=== PATIENT | male | born 1955 | race Caucasian/White ===

== ENCOUNTER → 2016-04-13 | Outpatient (CLI) | payer OTHER ==
[~2016-04-13] MED LIST: APR25 PO; ASPI81TA28 PO; BENA1TAB19 PO; CARV25TA2 PO; CHOL20005 PO; DEXT1LOZ PO; FRS/40 PO; GFNSR600 PO; GLCSR10 PO; ISOS60TA25 PO; ROSU40TA PO; SPIR25TA PO
--- NOTE | 2016-04-13 10:02 | DIAGNOSTIC IMAGING REPORT ---
TWO VIEW CHEST CLINICAL HISTORY: Cough. FINDINGS: PA and lateral chest radiographs are obtained. No prior studies are available for comparison at the time of dictation. The heart appears mildly enlarged. The pulmonary vasculature is noncongested. There is a questionable 11 mm nodular density in the right upper lobe. The lungs and pleural spaces are otherwise clear. There is no pneumothorax. The bony thorax appears intact. Fusion hardware is seen in the lower cervical spine. IMPRESSION: 1. No active disease in the chest. 2. There is a questionable 11 mm nodular density in the right upper lobe. This may represent a prominent vessel seen en face. A repeat examination with oblique views is recommended for reassessment. Electronically signed by: Jose Dumont M.D. 04/13/2016 10:00 AM Dictated Date/Time: 04/13/2016 9:57 AM
[2016-04-13 10:26] LABS: ESTIMATED AVERAGE GLUCOSE 114 mg/dl; HA1C FLAG Normal (Normal)
[2016-04-13 10:52] LABS: ALT/SGPT 15 U/L (12-78); AST/SGOT 10 U/L (15-37); BLOOD UREA NITROGEN 34 mg/dl (7-18); BUN/CREATININE RATIO 17.9 (10-20); CARBON DIOXIDE 29 mmol/L (21-32); CHLORIDE 104 mmol/L (98-107); GLUCOSE 187 mg/dl (70-99); POTASSIUM 4.5 mmol/L (3.5-5.1); SODIUM 140 mmol/L (136-145)
[2016-04-13 11:03] LABS: ALKALINE PHOSPHATASE 90 U/L (45-117)
[2016-04-13 11:32] LABS: URINE APPEARANCE CLEAR (CLEAR); URINE BILIRUBIN NEG (NEG); URINE COLOR YELLOW; URINE EPITHELIAL CELL AUTO 0-5 /lpf (0-5); URINE NITRITE NEG (NEG); URINE SPECIFIC GRAVITY 1.015 (1.000-1.030); UROBILINOGEN NEG (NEG); ZZUR CULT IF INDIC CLEAN CATCH NO
[2016-04-13 11:41] LABS: MANUAL MICROSCOPIC REQUIRED? NO; REVIEW REQ? NO
[2016-04-13 12:16] LABS: BASO % 0.4 %; BASO ABS # 0.02 K/uL (0-0.2); COMPLETE YES; EOS % 1.8 %; HEMATOCRIT 36.8 % (42-52); IG% 0.6 %; LYMPH % 18.3 %; LYMPH ABS # 0.92 K/uL (1.2-3.4); MEAN CELL VOLUME 79.5 fL (80-100); MEAN CORPUSCULAR HEMOGLOBIN 28.5 pg (25-34); MEAN CORPUSCULAR HGB CONC 35.9 g/dl (32-36); MEAN PLATELET VOLUME 10.2 fL (7.4-10.4); MONO % 13.3 %; NEUT % 65.6 %; PLATELET COUNT 139 K/uL (130-400); RED BLOOD COUNT 4.63 M/uL (4.7-6.1); WHITE BLOOD COUNT 5.04 K/uL (4.8-10.8)
== END | disposition home or self-care (01) ==
LOC: C.LAB 09:01
PROVIDERS: ATTEND Internal Medicine
DX: R05 Cough (principal); Z11.59 Encounter for screening for other viral diseases; E11.22 Type 2 diabetes mellitus with diabetic chronic kidney disease; N18.3 Chronic kidney disease, stage 3 (moderate); E66.9 Obesity, unspecified; E78.00 Pure hypercholesterolemia, unspecified; I50.9 Heart failure, unspecified

== ENCOUNTER → 2016-04-14 | Outpatient (CLI) | payer OTHER ==
[2016-04-14 12:49] LABS: CHOLESTEROL/HDL RATIO 3.4
== END | disposition home or self-care (01) ==
LOC: C.LABBFT 10:44
PROVIDERS: ATTEND Internal Medicine
DX: E78.00 Pure hypercholesterolemia, unspecified (principal)

== ENCOUNTER → 2016-04-25 | Outpatient (CLI) | payer OTHER ==
[~2016-04-25] MED LIST changes: +OPTIRAY 320 IV PRN
--- NOTE | 2016-04-25 12:17 | DIAGNOSTIC IMAGING REPORT ---
CT OF THE CHEST WITH IV CONTRAST CLINICAL HISTORY: Pulmonary nodule. COMPARISON STUDY: Chest x-ray dated 04/13/2016 TECHNIQUE: Following the IV administration of 70 mL of Optiray-320, CT of the thorax was performed from the thoracic inlet to the lung bases. Images are reviewed in the axial, sagittal, and coronal planes. IV contrast was administered without complication. CT DOSE: 917.33 mGy.cm FINDINGS: Thyroid: Imaged portions of the thyroid gland are normal in appearance. Thoracic aorta: The thoracic aorta is normal in course and caliber, noting standard 3-vessel arch anatomy. No aneurysm or dissection is seen. Pulmonary vasculature: The pulmonary trunk is normal in caliber. There are no central filling defects identified to suggest pulmonary embolus. Note that this examination was not protocoled for the evaluation of pulmonary emboli. HEART: There are coronary artery calcifications present. Lungs and pleural spaces: There are no pleural effusions. There is no focal pulmonary consolidation. There is an opacity at the right medial lung base, likely atelectatic. CT scanning fails to confirm the presence of a right upper lobe pulmonary mass. Mediastinum: There is no mediastinal lymphadenopathy. Susan: Clear. Axilla: Clear. Upper abdomen: There is moderate splenomegaly. Skeletal structures: There are no lytic or blastic osseous lesions. IMPRESSION: 1. CT scanning fails to confirm the presence of a right upper lobe pulmonary nodule 2. No evidence of pathologic adenopathy 3. Pleural-based right lower lobe opacities, most likely atelectatic 4. Moderate splenomegaly Electronically signed by: Ezequiel Bolden M.D. 04/25/2016 12:15 PM Dictated Date/Time: 04/25/2016 12:10 PM
== END | disposition home or self-care (01) ==
LOC: C.CTS 11:44
PROVIDERS: ATTEND Internal Medicine
DX: Z77.090 Contact with and (suspected) exposure to asbestos (principal); R91.8 Other nonspecific abnormal finding of lung field; R16.1 Splenomegaly, not elsewhere classified

== ENCOUNTER → 2016-04-26 | Outpatient (CLI) | payer OTHER ==
[~2016-04-26] MED LIST changes: -OPTIRAY 320 IV PRN
--- NOTE | 2016-04-26 11:28 | DIAGNOSTIC IMAGING REPORT ---
RENAL ULTRASOUND HISTORY: Renal insufficiency N18.3 Chronic kidney disease, stage [id number] COMPARISON: None. FINDINGS: Right kidney: 11.2 cm maximum dimension. No evidence for hydronephrosis. Normal corticomedullary differentiation and cortical thickness. Left kidney: Maximum dimension 11.9 cm. No evidence for hydronephrosis. Normal corticomedullary differentiation and cortical thickness. Bladder: No bladder wall thickening. The bilateral ureteral jets were identified. IMPRESSION: Normal renal ultrasound. Electronically signed by: Nilesh Townsend M.D. 04/26/2016 11:27 AM Dictated Date/Time: 04/26/2016 11:25 AM
== END | disposition home or self-care (01) ==
LOC: C.ULTR 10:03
PROVIDERS: ATTEND Internal Medicine
DX: N18.3 Chronic kidney disease, stage 3 (moderate) (principal)

== ENCOUNTER → 2016-05-30 | Outpatient (CLI) | payer OTHER ==
--- NOTE | 2016-05-31 06:30 | SPLIT NIGHT TECHNICIAN REPORT ---
[facility] Split Night Polysomnogram - Hvac Maintenance Technician Report Study date: 05/30/2016 Referring Physician: Ori Espino Pulmonary Name: PRAMOD DELCID Hvac Maintenance Technician: ARELIS Monique. Date of : 1955 Height: 61 years, Height 5' 3" Sex: Male Weight: 230 lbs Age: 61 BMI: Medications: 40.74 Aspirin 81 mg, Benazepril 40 mg, Carvedilol 25 mg, Glipizide 10 mg, Hydralazine 25 mg, Isosorbide Mononitrate 60 mg, Lasix 40 mg, Lipior 40 mg, Vitamin D 3 Patient History 61 yr. old male here for a possible split night sleep study. Patient was diagnosed with MARISA in [place] 6-8 years ago, but stopped treatment when he lost his insurance. Patient complains of snoring, witnessed apneas, and restlessness. Patient has a history of asbestos exposure, CHF, edema, recent weight gain, HTN, diabetes, and kidney disease. Patients [place] sleepiness scale score is 4/24. Parameters Monitored NPSG: E1-M2, E2-M1, Fp1-M2, Fp2-M1, F3-M2, F4-M2, F4-M1, C3-M2, C4-M2, C4-M1, O1-M2, O2-M2, O2-M1, T3-M2, T4-M1, P3-M2, P4-M1, CHIN1, CHIN2, HR, EKG, Legs, PFLOW, SNOR, FLOW, CFLOW, Tidal Volume, THOR, ABDO, SpO2, PLTH, CPRESS, ETCO2 Wave, ETCO2, pH SLEEP SUMMARY DATA DIAGNOSTIC TREATMENT Lights Out: 10:52:50 PM NONE Lights On: 1:22:20 AM 5:30:50 AM Total Recording Time (TRT): 149.5 min. 243.0 min. Total Sleep Time (TST): 131.0 min. 224.5 min. NREM Time: 118.5 min. 160.5 min. REM Time: 12.5 min. 64.0 min. Sleep Period Time (SPT): 138.0 min. 240.5 min. Sleep Efficiency (SE): 88 % 93 % Sleep Latency: 8.5 min. NONE min. Arousal Index: 13.3 3.7 PAP Treatment Levels: 4, 5, 6, 8, 9, 10, 11, 12, 13, 14 * Optimal Pressure(s) SLEEP STAGING DATA DIAGNOSTIC TREATMENT Duration (min) TST % Duration (min) TST % Stage Wake: 18.5 min. -- 18.0 min. -- WASO: 10.0 min. -- 16.0 min. -- NREM: 118.5 min. 90 % 160.5 min. 71 % Stage N1: 16.5 min. 13 % 22.0 min. 10 % Stage N2: 77.5 min. 59 % 109.0 min. 49 % Stage N3: 24.5 min. 19 % 29.5 min. 13 % REM: 12.5 min. 10 % 64.0 min. 29 % POSITIONAL DATA Event Count Index Event Count Index Supine: 27 81.0 122 32.6 Supine NREM: 27 81.0 80 29.9 Supine REM: N/A N/A 42 39 Non-Supine: 55 29.7 N/A N/A Non-Supine NREM: 36 21.9 N/A N/A Non-Supine REM: 19 91.2 N/A N/A AROUSAL SUMMARY DATA: Event Count Index Event Count Index Apnea Arousals: 5 4.1 3 6.9 Hypopnea Arousals: 5 2.3 3 0.8 Snore Arousals: 10 4.6 2 0.5 PLM Arousals: 3 1.4 2 0.5 Non-Specific Arousals: 1 0.5 0 0.0 Total Arousals: 29 13.3 14 3.7 MYOCLONUS (PLM) Event Count Index Event Count Index PLM: 23 10.5 19 5.1 PLM AROUSAL: 3 1.4 2 0.5 PLM W/O AROUSAL 23 10.5 17 4.5 PLM W/RESP EVENT 1 0.0 2 0.0 MYOCLONUS (PLM) Event Count Index Event Count Index LM: 6 25.2 83 22.2 LM AROUSAL: 6 2.7 7 1.9 LM W/O AROUSAL LM W/RESP EVENT LM NON SPECIFIC 58 26.6 68 18.2 HEART RATE DATA DIAGNOSTIC TREATMENT Sleep (bpm): 67 64 REM (bpm): 90 94 NREM (bpm): 92 93 Tachycardia Count: 0 0 Tachycardia Duration: 0.00 0 Bradycardia Count: 0 0 Bradycardia Duration: 0.00 0 DIAGNOSTIC PORTION TREATMENT PORTION RESPIRATORY DATA Event Count Index Event Count Index AHI: -- 37.6 -- 32.6 RDI: -- 37.6 -- 33 Obstructive Apnea: 9 4.1 26 6.9 Central Apnea: 0 0.0 0 0.0 Mixed Apnea: 0 0.0 0 0.0 Hypopnea: 73 33.4 96 25.7 RERA: 0 0.0 0 0.0 Total Apneas: 9 4.1 26 6.9 RESPIRATORY DATA REM NREM SLEEP REM NREM SLEEP Supine Position: Obstructive Apneas: N/A 5 5 5 21 26 Central Apneas: N/A 0 0 0 0 0 Mixed Apneas: N/A 0 0 0 0 0 Hypopneas: N/A 22 22 37 59 96 RERA N/A 0 0 0 0 0 Total Supine Events: N/A 27 27 42 80 122 Supine AHI: N/A 81.0 81.0 39 29.9 32.6 Supine RDI: N/A 81.0 81.0 39.4 29.9 32.6 REM NREM SLEEP REM NREM SLEEP Non-Supine Position: Obstructive Apneas: 4 0 4 N/A N/A N/A Central Apneas: 0 0 0 N/A N/A N/A Mixed Apneas: 0 0 0 N/A N/A N/A Hypopneas: 15 36 51 N/A N/A N/A RERA 0 0 0 N/A N/A N/A Total Supine Events: 19 36 55 N/A N/A N/A Supine AHI: 91.2 21.9 29.7 N/A N/A N/A Supine RDI: 91.2 21.9 29.7 N/A N/A N/A OXYGEN DESTAURATION DATA: Event Count Index Event Count Index REM Desaturations: 18 86.4 39 36.6 NREM Desaturations: 63 31.9 84 31.4 SNORE DATA DIAGNOSTIC TREATMENT Snore Time: 49.0 1:30:20 AM Snore TST%: 15 31 Snore Arousal Count: 10 2 Snore Arousal Index: 4.6 0.5 Desaturation Event Summary: Minimum %SpO2 Event Count Mean/Min/Max Duration(sec.) Desaturation Index % Time In Bed > 90 208 22.3 / 7.8 / 60.0 37.4 85.3 86 - 90 10 13.7 / 8.0 / 19.8 11.9 12.9 81 - 85 1 18.5 / 18.5 / 18.5 10.5 1.5 76 - 80 0 N/A 0.0 0.3 71 - 75 0 N/A 0.0 0.0 66 - 70 0 N/A 0.0 0.0 61 - 65 0 N/A 0.0 0.0 56 - 60 0 N/A 0.0 0.0 51 - 55 0 N/A 0.0 0.0 < 50 0 N/A 0.0 0.0 OXYGEN SATURATION DATA DIAGNOSTIC TREATMENT SpO2 Mean Sleep: 92 % 93 % SpO2 Mean REM: 90 % 94 % SpO2 Mean NREM: 92 % 93 % SpO2 Minimum Sleep: 78 % 75 % SpO2 Minimum REM: 78 % 75 % SpO2 Minimum NREM: 84 % 82 % Time Below 90% (TST): 10.2 17.1 Time Below 88% (TST): 4.8 8.8 Total REM NREM Awake <50% 0.0 min. 0.0 min. 0.0 min. 0.0 min. 51 - 60% 0.0 min. 0.0 min. 0.0 min. 0.0 min. 61 - 70% 0.0 min. 0.0 min. 0.0 min. 0.0 min. 71 - 80% 1.4 min. 1.4 min. 0.0 min. 0.0 min. 81 - 90% 56.1 min. 15.7 min. 39.8 min. 0.6 min. 91 - 100% 334.1 min. 59.4 min. 239.2 min. 35.6 min. Average 93 93 93 95 Minimum SpO2 75 75 82 86 Desaturation Event Index 32.4 44.7 31.6 14.8 # Desat. Events below 89% 87 37 49 1 Time(%) with Saturation below 89% 4.9 3.0 1.8 0.1 Time(min.) with Saturation below 89% 19.2 11.8 7.1 0.3 Recording Hvac Maintenance Technician Comments: slept in the right and supine positions. No cardiac arrhythmia or PLMs noted. No bruxism noted. Snoring was noted and scored as a 5 on a scale of 0 through 5. (0=no snoring, 5=snoring loud enough to be heard through a closed door or down the [address]) At 1:28 am, met specific Split-Night criteria during the diagnostic portion of this study. CPAP was initiated at +4 CMH2O room air and up-titrated to an optimal level of +14 CMH2O Cflex2. A small Titus and Paykel simplus, was used during titration. did not wake to use the restroom during the night. stated, I slept well with the mask. The final report will be interpreted and signed by a sleep physician. The completed physician report will then be placed in the patient medical record. Therapy Event: Therapy (cm H20) 0 4 5 6 8 9 Total Time at Pressure (min.) 149.5 7.2 11.4 12.5 33.6 27.2 TST at Pressure (min.) 131.0 5.2 11.4 12.5 33.6 26.2 # Periods 1 1 1 1 1 1 Sleep Onset (min.) 8.5 2.0 0.0 0.0 0.0 0.0 REM Onset (min.) 134.0 N/A N/A N/A N/A 21.9 Sleep Efficiency % 87 72 100 100 100 96 Wakefulness (%) 12.4 27.8 0.0 0.0 0.0 3.7 Wakefulness (min.) 18.5 2.0 0.0 0.0 0.0 1.0 NREM 1 (%) 11.0 44.3 2.9 8.0 0.0 5.5 NREM 1 (min.) 16.5 3.2 0.3 1.0 0.0 1.5 NREM 2 (%) 51.8 27.9 97.1 92.0 29.8 58.9 NREM 2 (min.) 77.5 2.0 11.0 11.5 10.0 16.0 NREM 3 (%) 16.4 0.0 0.0 0.0 70.2 12.6 NREM 3 (min.) 24.5 0.0 0.0 0.0 23.6 3.4 REM (%) 8.4 0.0 0.0 0.0 0.0 19.3 REM (min.) 12.5 0.0 0.0 0.0 0.0 5.2 # Arousals 29 1 1 2 0 3 Arousal Index 13.3 11.6 5.3 9.6 0.0 6.9 # Snore 1,660 11 78 108 526 377 Snore Index 760.3 127.6 412.1 519.5 940.2 864.0 AHI 37.6 81.2 95.1 91.4 14.3 25.2 AHI Supine 81.0 81.2 95.1 91.4 14.3 25.2 AHI Non-Supine 29.7 N/A N/A N/A N/A N/A NREM AHI 31.9 81.2 95.1 91.4 14.3 11.5 REM AHI 91.2 N/A N/A N/A N/A 80.0 RDI 37.6 81.2 95.1 91.4 14.3 25.2 # Obstructive 9 3 8 6 2 0 # Central Ap 0 0 0 0 0 0 # Mixed 0 0 0 0 0 0 # Hypopneas 73 4 10 13 6 11 RERAS 0 0 0 0 0 0 Total Respiratory Events 82 7 18 19 8 11 Time Below SpO2 89.00% (min.) 6.5 0.3 0.9 3.4 0.5 2.4 Mean NREM SpO2 (%) 92 93 93 92 91 92 Mean REM SpO2 (%) 90 N/A N/A N/A N/A 89 Mean Sleep SpO2 (%) 92 93 93 92 91 91 Min NREM SpO2 (%) 84 87 84 82 85 89 Min REM SpO2 (%) 78 N/A N/A N/A N/A 77 Position Supine (min.) 20.0 5.2 11.4 12.5 33.6 26.2 Position Non-supine (min.) 111.0 0.0 0.0 0.0 0.0 0.0 LM Index Sleep 35.7 11.6 42.3 77.0 5.4 29.8 LM Index NREM 33.9 11.6 42.3 77.0 5.4 31.5 LM Index REM 52.8 N/A N/A N/A N/A 22.9 Mean Heart Rate (bpm) 67 68 67 66 70 67 Min Heart Rate (bpm) 56 65 62 61 62 60 Therapy (cm H20) 10 11 12 13 14 Total Time at Pressure (min.) 34.2 59.6 14.8 21.3 20.9 TST at Pressure (min.) 27.7 58.6 14.8 20.3 14.4 # Periods 1 1 1 1 1 Sleep Onset (min.) 0.0 0.0 0.0 0.0 0.0 REM Onset (min.) 0.0 50.5 0.0 0.0 0.0 Sleep Efficiency % 81 98 100 95 68 Wakefulness (%) 19.0 1.7 0.0 4.7 31.2 Wakefulness (min.) 6.5 1.0 0.0 1.0 6.5 NREM 1 (%) 23.4 2.5 6.8 9.4 16.8 NREM 1 (min.) 8.0 1.5 1.0 2.0 3.5 NREM 2 (%) 15.9 76.4 0.0 18.8 16.8 NREM 2 (min.) 5.5 45.5 0.0 4.0 3.5 NREM 3 (%) 0.0 4.2 0.0 0.0 0.0 NREM 3 (min.) 0.0 2.5 0.0 0.0 0.0 REM (%) 41.7 15.3 93.2 67.1 35.3 REM (min.) 14.3 9.1 13.8 14.3 7.4 # Arousals 2 0 1 2 2 Arousal Index 4.3 0.0 4.1 5.9 8.4 # Snore 250 718 147 148 16 Snore Index 541.4 734.6 597.2 437.8 66.9 AHI 49.8 24.6 28.4 14.8 0.0 AHI Supine 49.8 24.6 28.4 14.8 0.0 AHI Non-Supine N/A N/A N/A N/A N/A NREM AHI 35.7 18.2 0.0 10.0 0.0 REM AHI 63.1 59.4 30.5 16.8 0.0 RDI 49.8 24.6 28.4 14.8 0.0 # Obstructive 2 4 0 1 0 # Central Ap 0 0 0 0 0 # Mixed 0 0 0 0 0 # Hypopneas 21 20 7 4 0 RERAS 0 0 0 0 0 Total Respiratory Events 23 24 7 5 0 Time Below SpO2 89.00% (min.) 3.0 1.5 0.2 0.2 0.0 Mean NREM SpO2 (%) 94 94 96 96 96 Mean REM SpO2 (%) 92 93 95 95 96 Mean Sleep SpO2 (%) 93 94 95 95 96 Min NREM SpO2 (%) 90 89 92 94 93 Min REM SpO2 (%) 80 75 86 88 94 Position Supine (min.) 27.7 58.6 14.8 20.3 14.4 Position Non-supine (min.) 0.0 0.0 0.0 0.0 0.0 LM Index Sleep 36.8 20.5 44.7 29.6 12.5 LM Index NREM 44.6 18.2 0.0 20.0 17.1 LM Index REM 29.5 33.0 47.9 33.6 8.2 Mean Heart Rate (bpm) 64 62 61 61 61 Min Heart Rate (bpm) 52 53 54 54 56
--- NOTE | 2016-05-31 19:38 | POLYSOMNOGRAPH REPORT ---
CLINICAL DATA: The patient is a 61-year-old male with a BMI of 40.74. His history is that he was diagnosed with sleep apnea 6-8 years ago in [place]. He was started on nasal CPAP. He lost his insurance however and thus stopped treatment. His complaints include snoring, observed apneas, excessive daytime somnolence, fatigue, and restless legs. The study was scored utilizing the 4% rule for hypopneas. His [place] sleepiness score is 4/24. SLEEP ARCHITECTURE: During the diagnostic portion of the study, the sleep period time was 138.0 minutes. The total sleep time was 131.0 minutes. Sleep efficiency was 88%. Sleep latency was normal at 8.5 minutes. Sleep consisted of stage N1 13%, stage N2 59%, stage N3 19%, and stage REM 10%. During the therapeutic portion of the study, the patient was treated with nasal CPAP. The sleep period time was 240.5 minutes and the total sleep time was 224.5 minutes. The sleep efficiency was 93%. The sleep latency was 0. Sleep consisted of stage N1 10%, stage N2 49%, stage N3 13%, stage REM 29%. AROUSAL DATA: During the diagnostic portion of the study, the patient had a total of 29 arousals including 5 apnea arousals, 5 hypopnea arousals, 10 snoring arousals, 3 PLM arousals and 1 nonspecific arousal. The arousal index was 13.3. During the therapeutic portion of the study, the patient had a total of 14 arousals including 3 apnea arousals, 3 hypopnea arousals, 2 snoring arousals, 2 PLM arousals. The arousal index during the therapeutic portion of the study was 3.7. PLM DATA: During the diagnostic portion of the study, the patient had a total of 23 periodic limb movements for an index of 10.5. The PLM arousal index was only 1.4. During the therapeutic portion of the study, the patient had 19 periodic limb movements for an index of 5.1. The PLM arousal index was only 0.5. EKG: The underlying cardiac rhythm was normal sinus. No arrhythmias were noted. Cardiac rates ranged from 67-94 beats per minute. RESPIRATORY DATA: During the diagnostic portion of the study, the patient had a total of 82 respiratory events including 9 obstructive apneas and 73 hypopneas. The 4% rule was used to score hypopneas. The apnea-hypopnea index was 37.6. During the therapeutic portion of the study, the patient was treated with nasal CPAP up to a final pressure of 14 cm. Overall, he had a total of 122 events including 26 obstructive apneas and 96 hypopneas. The apnea-hypopnea index during the therapeutic portion was 32.6. At the final pressure of 14 cm, he had 0 respiratory events for an apnea-hypopnea index of 0. However, the total sleep time was only 14.4 minutes at that pressure. OXIMETRY DATA: During the diagnostic portion of the study, the mean saturation was 92%. The minimum saturation was 78%. There was a total of 4.8 minutes with saturations less than 88%. During the therapeutic portion of the study, the mean saturation was 93%. The minimum saturation was 75%. There were a total of 8.8 minutes with saturations less than 88%. At the final pressure, the saturations were all above 88%. STAY CUTTER'S COMMENTS AND TREATMENT SUMMARY: The patient slept in the right and supine positions. No cardiac arrhythmias were noted. No bruxism was noted. Snoring was noted and scored as a 5 on a scale of 0 through 5. At 1:28 a.m., the patient met specific split night criteria. CPAP was initiated at 4 cm of water and uptitrated to an optimum level of 14 cm. A small Titus and Paykel Simplus mask was used during titration. The patient stated that he slept well with the mask. IMPRESSION: Obstructive sleep apnea -- moderate. COMMENTS: The patient had a split night study done. He had at least moderate sleep apnea during the diagnostic portion of the study. He did have desaturations as noted. CPAP was initiated. He persisted with a significant amount of events until the final pressure of 14 cm, when he did not have any events. However, his total sleep time at the final pressure was only 14.4 minutes. His oxygen saturations improved significantly at the higher pressures. The patient did have some REM rebound. RECOMMENDATIONS: 1. It is advised that the patient be started on nasal CPAP at 14 cm. 2. It is advised that he be ordered a Titus and Paykel Simplus mask size small. 3. The patient should be advised of a weight reduction program in light of his body mass index of 40.74 events per hour. 4. The patient should be advised to avoid sleeping in the supine position. 5. The patient should be seen in followup between day 31 and day 90 of the initiation of nasal CPAP. MTDD
== END | disposition home or self-care (01) ==
LOC: C.NEUR 20:00
PROVIDERS: ATTEND Internal Medicine Pulmonary Disease
DX: G47.33 Obstructive sleep apnea (adult) (pediatric) (principal)

== ENCOUNTER → 2016-06-12 | Outpatient (CLI) | payer OTHER | END | disposition home or self-care (01) | LOC: C.LABBFT 11:57 | PROVIDERS: ATTEND Internal Medicine | DX: E88.01 Alpha-1-antitrypsin deficiency (principal); E55.9 Vitamin D deficiency, unspecified ==

== ENCOUNTER → 2016-06-26 | Outpatient (CLI) | payer OTHER ==
[~2016-06-26] MED LIST changes: -BENA1TAB19 PO; +BENA1TAB53 PO
[2016-06-26 12:36] LABS: BASO % 0.2 %; BASO ABS # 0.01 K/uL (0-0.2); COMPLETE YES; EOS % 2.2 %; HEMATOCRIT 37.9 % (42-52); IG% 0.2 %; LYMPH % 23.4 %; LYMPH ABS # 0.96 K/uL (1.2-3.4); MEAN CELL VOLUME 79.8 fL (80-100); MEAN CORPUSCULAR HGB CONC 35.1 g/dl (32-36); MONO % 10.9 %; NEUT % 63.1 %; PLATELET COUNT 148 K/uL (130-400); RED BLOOD COUNT 4.75 M/uL (4.7-6.1); WHITE BLOOD COUNT 4.11 K/uL (4.8-10.8)
[2016-06-26 12:38] LABS: URINE APPEARANCE CLEAR (CLEAR); URINE BILIRUBIN NEG (NEG); URINE COLOR YELLOW; URINE EPITHELIAL CELL AUTO 0-5 /lpf (0-5); URINE NITRITE NEG (NEG); URINE SPECIFIC GRAVITY 1.019 (1.000-1.030); UROBILINOGEN NEG (NEG); ZZUR CULT IF INDIC CLEAN CATCH NO
[2016-06-26 12:44] LABS: BLOOD UREA NITROGEN 26 mg/dl (7-18); CALCIUM 8.8 mg/dl (8.5-10.1); CARBON DIOXIDE 30 mmol/L (21-32); CHLORIDE 104 mmol/L (98-107); GLUCOSE 171 mg/dl (70-99); MAGNESIUM 2.2 mg/dl (1.8-2.4); POTASSIUM 4.1 mmol/L (3.5-5.1); SODIUM 141 mmol/L (136-145)
[2016-06-26 12:47] LABS: MANUAL MICROSCOPIC REQUIRED? NO; REVIEW REQ? NO
[2016-06-26 12:49] LABS: PHOSPHORUS 3.1 mg/dl (2.5-4.9)
[2016-06-26 13:03] LABS: URINE PROTIEN/CREAT RATIO 0.2 (0-0.2); URINE TOTAL PROTEIN 45.4 mg/dl (0-11.9)
== END | disposition home or self-care (01) ==
LOC: C.LABBFT 11:11
PROVIDERS: ATTEND Internal Medicine Nephrology
DX: I50.9 Heart failure, unspecified (principal); N18.3 Chronic kidney disease, stage 3 (moderate)

== ENCOUNTER → 2016-07-07 | Outpatient (CLI) | payer OTHER ==
[2016-07-07 14:54] VITALS: BP 144/81; PULSE 71; Ht 162.6 cm
== END | disposition home or self-care (01) ==
LOC: C.NEUR 13:18
PROVIDERS: ATTEND Internal Medicine Pulmonary Disease
DX: G47.33 Obstructive sleep apnea (adult) (pediatric) (principal); E66.9 Obesity, unspecified; I50.9 Heart failure, unspecified

== ENCOUNTER → 2016-07-11 | Outpatient (CLI) | payer OTHER ==
[2016-07-11 14:57] LABS: BLOOD UREA NITROGEN 22 mg/dl (7-18); BUN/CREATININE RATIO 10.6 (10-20); CALCIUM 8.8 mg/dl (8.5-10.1); CARBON DIOXIDE 23 mmol/L (21-32); CHLORIDE 106 mmol/L (98-107); GLUCOSE 300 mg/dl (70-99); POTASSIUM 4.1 mmol/L (3.5-5.1); SODIUM 140 mmol/L (136-145)
== END | disposition home or self-care (01) ==
LOC: C.LABBFT 10:15
PROVIDERS: ATTEND Internal Medicine Nephrology
DX: N18.3 Chronic kidney disease, stage 3 (moderate) (principal)

== ENCOUNTER → 2016-08-07 | Outpatient (CLI) | payer OTHER ==
--- NOTE | 2016-08-07 11:08 | DIAGNOSTIC IMAGING REPORT ---
CHEST 2 VIEWS ROUTINE CLINICAL HISTORY: R05 lung nodule COMPARISON STUDY: 04/13/2016. CT of the chest dated 04/25/2016 FINDINGS: Density in the right suprahilar region is again noted. This is seen in the patient's prior CT of the chest finding and potentially relates to technical artifact. It is not seen in the lateral projection. Lungs otherwise remain clear. Diaphragms smooth. IMPRESSION: Unchanging density overlying the right midlung which appear to relate to overlap and or technical artifact. No acute process. Electronically signed by: Nilesh Townsend M.D. 08/07/2016 11:07 AM Dictated Date/Time: 08/07/2016 11:04 AM
== END | disposition home or self-care (01) ==
LOC: C.RAD1850 10:53
PROVIDERS: ATTEND Internal Medicine
DX: R05 Cough (principal)

== ENCOUNTER → 2016-08-25 | Outpatient (CLI) | payer OTHER ==
--- NOTE | 2016-08-25 09:57 | DIAGNOSTIC IMAGING REPORT ---
ABDOMINAL ULTRASOUND COMPLETE HISTORY: R16.1 Splenomegaly. COMPARISON: Renal ultrasound 04/26/2016. FINDINGS: Pancreas: The pancreas demonstrates a normal echotexture. Liver: The liver is echogenic consistent with fatty change. Gallbladder: No gallbladder wall thickening. No gallstones. CBD: 3 mm. Kidneys: No hydronephrosis. Spleen: Enlarged measuring 14.6 cm in length. Aorta: Normal in caliber. IVC: Patent. IMPRESSION: 1. Splenomegaly. 2. Hepatic steatosis. Electronically signed by: Alonso Naqvi M.D. 08/25/2016 9:56 AM Dictated Date/Time: 08/25/2016 9:48 AM
== END | disposition home or self-care (01) ==
LOC: C.ULTR 08:56
PROVIDERS: ATTEND Physician Assistant Medical
DX: R16.1 Splenomegaly, not elsewhere classified (principal)

== ENCOUNTER → 2016-08-30 | Outpatient (CLI) | payer OTHER ==
[2016-08-30 13:39] LABS: BLOOD UREA NITROGEN 36 mg/dl (7-18); BUN/CREATININE RATIO 15.5 (10-20); CARBON DIOXIDE 25 mmol/L (21-32); CHLORIDE 107 mmol/L (98-107); GLUCOSE 157 mg/dl (70-99); POTASSIUM 4.2 mmol/L (3.5-5.1); SODIUM 141 mmol/L (136-145)
[2016-08-30 13:40] LABS: PHOSPHORUS 3.7 mg/dl (2.5-4.9)
== END | disposition home or self-care (01) ==
LOC: C.LABBFT 10:23
PROVIDERS: ATTEND Internal Medicine Nephrology
DX: N18.3 Chronic kidney disease, stage 3 (moderate) (principal)

== ENCOUNTER → 2016-09-14 | Outpatient (CLI) | payer OTHER ==
[2016-09-15 07:04] LABS: ESTIMATED AVERAGE GLUCOSE 128 mg/dl; HA1C FLAG Normal (Normal)
[2016-09-19 06:13] LABS: ALBUMIN 4.1 G/DL (3.8-4.8); ALBUMIN % 50.19 %; BETA GLOBULIN % 16.01 %; CREATININE UR 73 MG/DL (20-370); GAMMA GLOBULIN 1.2 G/DL (0.8-1.7); GAMMA GLOBULIN % 22.75 %; TOTAL PROTEIN 6.9 G/DL (6.2-8.3)
== END ==
LOC: C.LABBFT 12:09
PROVIDERS: ATTEND Internal Medicine
DX: E11.9 Type 2 diabetes mellitus without complications (principal); R80.9 Proteinuria, unspecified

== ENCOUNTER → 2016-09-29 | Outpatient (CLI) | payer OTHER ==
[~2016-09-29] MED LIST changes: +BENA1TAB19 PO; -BENA1TAB53 PO
[2016-09-29 17:17] LABS: BLOOD UREA NITROGEN 26 mg/dl (7-18); BUN/CREATININE RATIO 12.3 (10-20); CALCIUM 8.9 mg/dl (8.5-10.1); CARBON DIOXIDE 23 mmol/L (21-32); CHLORIDE 108 mmol/L (98-107); GLUCOSE 147 mg/dl (70-99); POTASSIUM 4.1 mmol/L (3.5-5.1); SODIUM 140 mmol/L (136-145)
[2016-09-29 17:19] LABS: PHOSPHORUS 2.9 mg/dl (2.5-4.9)
== END | disposition home or self-care (01) ==
LOC: C.LABBFT 14:24
PROVIDERS: ATTEND Internal Medicine Nephrology
DX: I12.9 Hypertensive chronic kidney disease with stage 1 through stage 4 chronic kidney disease, or unspecified chronic kidney disease (principal); N18.3 Chronic kidney disease, stage 3 (moderate); I50.9 Heart failure, unspecified

== ENCOUNTER 2016-11-27 09:36 | Emergency (ER) | payer OTHER ==
[~2016-11-27] VITALS: Ht 162.6 cm; Wt 106.0 kg
[2016-11-27 09:40] VITALS: TEMP 37; Ht 162.6 cm; Wt 106.0 kg
[2016-11-27] MEDS ORDERED: CHOL20005 PO (10:01)
[2016-11-27] MEDS ORDERED: BENA1TAB19 PO (10:01)
[2016-11-27] MEDS ORDERED: ROSU40TA PO (10:01)
[2016-11-27] MEDS ORDERED: FRS/40 PO (10:01)
[2016-11-27] MEDS ORDERED: ASPI81TA28 PO (10:01)
[2016-11-27] MEDS ORDERED: GLCSR10 PO (10:01)
[2016-11-27] MEDS ORDERED: APR25 PO (10:01)
[2016-11-27] MEDS ORDERED: ISOS60TA25 PO (10:01)
[2016-11-27] MEDS ORDERED: SPIR25TA PO (10:01)
[2016-11-27] MEDS ORDERED: CARV25TA2 PO (10:01)
[2016-11-27] MEDS ORDERED: COUGH DROP (SUGAR FREE) LOZ 24 LOZ/1 BOX PO STA (10:10)
[2016-11-27] MEDS ORDERED: GUAIFENESIN 600 MG TABCR PO STA (10:10)
[2016-11-27] MEDS ORDERED: ACETAMINOPHEN 325 MG TAB PO STA (10:10)
[2016-11-27 10:22] VITALS: O2SAT 96
[2016-11-27 10:38] LABS: BASO % 0.3 %; BASO ABS # 0.01 K/uL (0-0.2); COMPLETE YES; EOS % 2.7 %; HEMATOCRIT 32.9 % (42-52); IG% 0.6 %; LYMPH % 18.8 %; LYMPH ABS # 0.63 K/uL (1.2-3.4); MEAN CELL VOLUME 82.5 fL (80-100); MEAN CORPUSCULAR HEMOGLOBIN 29.8 pg (25-34); MEAN CORPUSCULAR HGB CONC 36.2 g/dl (32-36); MEAN PLATELET VOLUME 9.9 fL (7.4-10.4); MONO % 14.6 %; PLATELET COUNT 104 K/uL (130-400); RED BLOOD COUNT 3.99 M/uL (4.7-6.1); WHITE BLOOD COUNT 3.36 K/uL (4.8-10.8)
--- NOTE | 2016-11-27 10:42 | DIAGNOSTIC IMAGING REPORT ---
CHEST 2 VIEWS ROUTINE HISTORY: 61 years-old Male CHEST PAIN acute atypical chest pain with cough and history of CHF. COMPARISON: Portable chest radiograph 08/07/2016 TECHNIQUE: Frontal and lateral views of the chest FINDINGS: Cardiac silhouette is moderately enlarged. There is no pneumothorax, pleural effusion or focal airspace consolidation. There is no overt pulmonary edema. Fusion hardware is seen within the lower cervical spine. Multilevel endplate spurring is noted throughout the thoracolumbar spine. IMPRESSION: No acute cardiopulmonary process. The above report was generated using voice recognition software. It may contain grammatical, syntax or spelling errors. Electronically signed by: Bonilla Orourke M.D. 11/27/2016 10:41 AM Dictated Date/Time: 11/27/2016 10:38 AM
[2016-11-27 10:46] LABS: INR 1.1 (0.9-1.1); PARTIAL THROMBOPLASTIN RATIO 1.1; PROTHROMBIN TIME (PATIENT) 11.4 SECONDS (9.0-12.0)
[2016-11-27 10:55] LABS: ALT/SGPT 17 U/L (12-78); BLOOD UREA NITROGEN 23 mg/dl (7-18); BUN/CREATININE RATIO 11.7 (10-20); CALCIUM 8.4 mg/dl (8.5-10.1); CARBON DIOXIDE 26 mmol/L (21-32); CHLORIDE 106 mmol/L (98-107); GLUCOSE 129 mg/dl (70-99); SODIUM 140 mmol/L (136-145)
[2016-11-27 11:01] LABS: ALKALINE PHOSPHATASE 105 U/L (45-117); AST/SGOT 17 U/L (15-37)
[2016-11-27] MEDS ORDERED: GFNSR600 PO (11:29)
[2016-11-27] MEDS ORDERED: DEXT1LOZ PO (11:29)
[2016-11-27 11:30] VITALS: BP 130/66; PULSE 64
--- NOTE | 2016-11-27 11:31 | EMERGENCY ROOM VISIT NOTE ---
History Report prepared by Jasmine: Angel Dixon Under the Supervision of: Dr. Mehdi Mckeon M.D. First contact with patient: 09:40 Chief Complaint: COUGH Stated Complaint: VERY BAD COUGH Nursing Triage Summary: Patient presents with cough that began last week Saw his PCP on and was given a zpack States cough is worse now especially at night Has tried OTC medication (Delsym and cannot recall name of other med) without relief of symptoms States he is SOB with activity, has history of CHF History of Present Illness The patient is a 61 year old white male with a past medical history of CHF, HTN , kidney failure, and diabetes who presents to the ED with a cc of intermittent episodes of coughing beginning last week. Cough produces a small amount of clear sputum. Positive occasional chills and shortness of breath. Negative fevers or chest pain. Shortness of breath is worsened with lying down. Seen by PCP four days ago, and was prescribed a Zpack. No significant weight changes. No recent medication changes. On 40 mg Lasix daily. No personal history of blood clots. No recent travel. On aspirin, but denies use of any other blood thinning medication. He follows up with Dr. Hurtado of cardiology. He was seen by his computer specialist, Dr. Hurtado, three weeks ago and was told that everything looked fine. Source of History: patient Onset: last week Quality: other (cough) Timing: intermittent, other (episodes) Associated Symptoms: + chills (occasional), + SOB, No fevers, No chest pain Review of Systems See HPI for pertinent positives and negatives. A total of ten systems were reviewed and were otherwise negative. Past Medical & Surgical Medical Problems: (1) CHF (congestive heart failure) (2) Diabetes (3) Fatty liver (4) HTN (hypertension) (5) Kidney failure Surgical Problems: (1) H/O cervical spine surgery (2) S/P wrist surgery Family History No pertinent family history stated. Social History Smoking Status: Current Some Day Smoker Alcohol Use: none Drug Use: none Occupation Status: disabled Current/Historical Medications Scheduled Aspirin (Aspirin Ec), 81 MG PO DAILY Benazepril (Lotensin), 40 MG PO DAILY Carvedilol (Coreg), 25 MG PO BID Cholecalciferol (Vitamin D3), 2,000 UNITS PO DAILY Furosemide (Lasix), 40 MG PO DAILY Glipizide (Glipizide ER), 10 MG PO BID Guaifenesin Ext Rel (Mucinex Ext Rel), 1,200 MG PO Q12 Hydralazine Hcl (Apresoline), 25 MG PO TID Isosorbide Mononitrate Ext Rel (Imdur Ext Rel), 60 MG PO QAM Rosuvastatin Calcium (Crestor), 40 MG PO DAILY Spironolactone (Aldactone), 25 MG PO DAILY Scheduled PRN Dextromethorphan-Benzocaine (Cepacol Sore Throat & Cou), 1 ISAIAH PO TID PRN for Cough Allergies Coded Allergies: No Known Allergies (Unverified , 11/27/16) Physical Exam Vital Signs Date Time Temp Pulse Resp B/P (MAP) Pulse Ox O2 Delivery O2 Flow Rate FiO2 11/27/16 11:51 95 11/27/16 11:30 64 21 130/66 95 Room Air 11/27/16 10:36 65 16 145/62 95 Room Air 11/27/16 10:26 65 11/27/16 10:22 96 Room Air 11/27/16 09:40 37.0 67 20 139/76 97 Room Air Physical Exam GENERAL: Obese, awake, alert, well-appearing, NAD HENT: Normocephalic, atraumatic. Posterior oropharynx is clear. No swelling. No tonsillar exudate. Poor dentition without evidence of swelling or abscess. EYES: Normal conjunctiva. Sclera non-icteric. NECK: Supple. No nuchal rigidity. FROM. RESPIRATORY: CTAB, no rhonchi, wheezing, crackles CARDIAC: RRR, no MRG ABDOMEN: Soft, NTND, BS+ MSK: No chest wall TTP. No calf pain. No asymmetrical swelling. No edema. NEURO: GCS 15, CN 2-12 intact, moves all 4s on command SKIN: No rash or jaundice noted. Medical Decision & Procedures ER Provider Diagnostic Interpretation: X-ray: Per my interpretation, radiologist review. CHEST 2 VIEWS ROUTINE FINDINGS: Cardiac silhouette is moderately enlarged. There is no pneumothorax, pleural effusion or focal airspace consolidation. There is no overt pulmonary edema. Fusion hardware is seen within the lower cervical spine. Multilevel endplate spurring is noted throughout the thoracolumbar spine. IMPRESSION: No acute cardiopulmonary process. The above report was generated using voice recognition software. It may contain grammatical, syntax or spelling errors. Electronically signed by: Bonilla Orourke M.D. Laboratory Results 11/27/16 10:25 Red Blood Count 3.99, Mean Corpuscular Volume 82.5, Mean Corpuscular Hemoglobin 29.8, Mean Corpuscular Hemoglobin Concent 36.2, Mean Platelet Volume 9.9, Neutrophils (%) (Auto) 63.0, Lymphocytes (%) (Auto) 18.8, Monocytes (%) (Auto) 14.6, Eosinophils (%) (Auto) 2.7, Basophils (%) (Auto) 0.3, Neutrophils # (Auto ) 2.12, Lymphocytes # (Auto) 0.63, Monocytes # (Auto) 0.49, Eosinophils # (Auto ) 0.09, Basophils # (Auto) 0.01 11/27/16 10:25 Test 11/27/16 10:25 White Blood Count 3.36 K/uL (4.8-10.8) Red Blood Count 3.99 M/uL (4.7-6.1) Hemoglobin 11.9 g/dL (14.0-18.0) Hematocrit 32.9 % (42-52) Mean Corpuscular Volume 82.5 fL (80-100) Mean Corpuscular Hemoglobin 29.8 pg (25-34) Mean Corpuscular Hemoglobin Concent 36.2 g/dl (32-36) Platelet Count 104 K/uL (130-400) Mean Platelet Volume 9.9 fL (7.4-10.4) Neutrophils (%) (Auto) 63.0 % Lymphocytes (%) (Auto) 18.8 % Monocytes (%) (Auto) 14.6 % Eosinophils (%) (Auto) 2.7 % Basophils (%) (Auto) 0.3 % Neutrophils # (Auto) 2.12 K/uL (1.4-6.5) Lymphocytes # (Auto) 0.63 K/uL (1.2-3.4) Monocytes # (Auto) 0.49 K/uL (0.11-0.59) Eosinophils # (Auto) 0.09 K/uL (0-0.5) Basophils # (Auto) 0.01 K/uL (0-0.2) RDW Standard Deviation 39.6 fL (36.4-46.3) RDW Coefficient of Variation 13.3 % (11.5-14.5) Immature Granulocyte % (Auto) 0.6 % Immature Granulocyte # (Auto) 0.02 K/uL (0.00-0.02) Prothrombin Time 11.4 SECONDS (9.0-12.0) Prothromb Time International Ratio 1.1 (0.9-1.1) Activated Partial Thromboplast Time 28.7 SECONDS (21.0-31.0) Partial Thromboplastin Ratio 1.1 Anion Gap 8.0 mmol/L (3-11) Est Creatinine Clear Calc Drug Dose 43.8 ml/min Estimated GFR () 41.1 Estimated GFR (Non- 35.5 BUN/Creatinine Ratio 11.7 (10-20) Calcium Level 8.4 mg/dl (8.5-10.1) Total Bilirubin 1.4 mg/dl (0.2-1) Direct Bilirubin 0.3 mg/dl (0-0.2) Aspartate Amino Transf (AST/SGOT) 17 U/L (15-37) Alanine Aminotransferase (ALT/SGPT) 17 U/L (12-78) Alkaline Phosphatase 105 U/L (45-117) Troponin I < 0.015 ng/ml (0-0.045) Total Protein 7.3 gm/dl (6.4-8.2) Albumin 3.8 gm/dl (3.4-5.0) Lipase 119 U/L (73-393) Laboratory results reviewed by me Medications Administered Medications (Trade) Dose Ordered Sig/Parveen Route Start Time Stop Time Status Last Admin Dose Admin Guaifenesin (Mucinex Contr Rel Tab) 1,200 mg ONE STAT PO 11/27/16 10:10 11/27/16 10:12 DC 11/27/16 10:35 1,200 MG Acetaminophen (Tylenol Tab) 650 mg NOW STAT PO 11/27/16 10:10 11/27/16 10:12 DC 11/27/16 10:18 650 MG Menthol (Nice Isaiah) 2 isaiah NOW STAT PO 11/27/16 10:10 11/27/16 10:12 DC 11/27/16 10:19 2 ISAIAH ECG Indication: SOB/dyspnea Rate (beats per minute): 62 Rhythm: normal sinus Findings: other (Normal intervals. T-wave flattening in AVL, but no other changes.) ED Course 0958: The patient was evaluated in room A2. A complete history and physical exam was performed. 1010: Ordered Nice Isaiah 2 isaiah PO, Tylenol Tab 650 mg PO, Mucinex Contr Rel Tab 1200 mg PO. 1125: I reevaluated the patient. Discussed results and discharge instructions: he verbalized understanding and agreement. The patient is ready for discharge. Medical Decision The patient is a 61 year old white male with a past medical history of CHF, HTN , kidney failure, and diabetes who presents to the ED with a cc of intermittent episodes of coughing beginning last week. Differential diagnosis: Etiologies such as cardiac ischemia, aortic dissection, pulmonary embolism, pneumonia, pneumothorax, musculoskeletal, infections, pericarditis, myocarditis , esophageal rupture, gastrointestinal, as well as others were entertained. Patient was seen and evaluated at the bedside. Patient did have blood work as well as EKG and chest x-ray. Patient was treated symptomatically for his cough. Patient's cough was productive but was clear patient has been afebrile. Patient has had no weight gain. Patient does not appear volume overloaded has clear lung sounds as well as no lower extremity swelling. Patient also had a negative chest film. Patient's EKG signs for acute ischemia with a negative troponin. Patient does have chronic CTD's creatinine is improved compared to prior. Patient does have mild elevation in his bilirubin this may be related to his history of CHF but he has no elevations of his LFTs are alkaline phosphatase. Patient is feeling improved. Patient does not have any orthopnea or GUTIERREZ. Wells PE score 0 points, less likely PE. Patient was given strict follow-up, discharge, and return precautions. Patient agreed with plan of care patient was safely discharged home. Medication Reconcilliation Current Medication List: was personally reviewed by me Blood Pressure Screening Patient's blood pressure: Elevated blood pressure Blood pressure disposition: Elevated BP felt to be situational Impression Primary Impression: Cough Additional Impression: URI (upper respiratory infection) Scribe Attestation The scribe's documentation has been prepared under my direction and personally reviewed by me in its entirety. I confirm that the note above accurately reflects all work, treatment, procedures, and medical decision making performed by me. Departure Information Dispostion Home / Self-Care Prescriptions Guaifenesin Ext Rel (MUCINEX EXT REL) 600 Mg Tabcr 1200 MG PO Q12 for Cough for 7 Days, #28 TAB Prov: Mehdi Mckeon M.D. 11/27/16 Dextromethorphan-Benzocaine (CEPACOL SORE THROAT & COU) 1 Isaiah Isaiah 1 ISAIAH PO TID Y for Cough, #12 ISAIAH Prov: Mehdi Mckeon M.D. 11/27/16 Referrals Narciso Loo M.D. (PCP) Patient Instructions Coughing Techniques, Deep Coughing, ED Cough Chronic Cause Unkn, ED Upper Resp Infec No Abx Tx, My [facility] Additional Instructions Please return to the emergency department if you have worsening or recurrent symptoms not amenable to at-home treatment. Please call for a follow-up appointment with her primary care physician. Please take your medications as prescribed. If you have other concerns and/or complaints please feel free to also call your primary care physician's office or return the ED for further evaluation, management, and treatment. Please take you medications as prescribed. Continue current meds as prescribed. Avoid NSAIDs i.e. motrin, aspirin, aleve. You may take some tylenol 650mg every 6 hours as needed for pain. You do take an ACEi, which may contribute to your cough. Please f/u w/ you PCP/ computer specialist for recommendations for anti-HTN. You were found to have an elevated blood pressure today (>120 sytolic or >90 diastolic). Per medicare guidelines, you need to follow up with this blood pressure screening with your Primary Care Physician (PCP). For a new PCP call [phone]. You have been examined and treated today on an emergency basis only. This is not a substitute for, or an effort to provide, complete comprehensive medical care. It is impossible to recognize and treat all injuries or illnesses in a single emergency department visit. It is therefore important that you follow up closely with [facility]. Call as soon as possible for an appointment. Thank you for your time and consideration. I look forward to speaking with you again soon. Please don't hesitate to call us if you have any questions. Problem Qualifiers Additional Impression: URI (upper respiratory infection) URI type: unspecified URI Qualified Codes: J06.9 - Acute upper respiratory infection, unspecified
[2016-11-27 11:51] VITALS: O2SAT 95
== END 2016-11-27 11:53 | disposition home or self-care (01) ==
LOC: C.EDB 09:37 → C.EDA 11:53
DX: R05 Cough (principal); J06.9 Acute upper respiratory infection, unspecified; I50.9 Heart failure, unspecified; E11.9 Type 2 diabetes mellitus without complications; K76.0 Fatty (change of) liver, not elsewhere classified; I10 Essential (primary) hypertension; N19 Unspecified kidney failure; F17.200 Nicotine dependence, unspecified, uncomplicated; Z79.82 Long term (current) use of aspirin

== ENCOUNTER → 2016-12-04 | Outpatient (CLI) | payer OTHER ==
[2016-12-04 13:17] LABS: BASO % 0.2 %; BASO ABS # 0.01 K/uL (0-0.2); COMPLETE YES; EOS % 2.8 %; HEMATOCRIT 36.6 % (42-52); IG% 0.4 %; LYMPH % 17.8 %; LYMPH ABS # 0.95 K/uL (1.2-3.4); MEAN CELL VOLUME 82.6 fL (80-100); MEAN CORPUSCULAR HEMOGLOBIN 29.8 pg (25-34); MEAN CORPUSCULAR HGB CONC 36.1 g/dl (32-36); MONO % 8.1 %; NEUT % 70.7 %; PLATELET COUNT 145 K/uL (130-400); RED BLOOD COUNT 4.43 M/uL (4.7-6.1); WHITE BLOOD COUNT 5.33 K/uL (4.8-10.8)
[2016-12-04 13:23] LABS: URINE APPEARANCE CLEAR (CLEAR); URINE BILIRUBIN NEG (NEG); URINE COLOR YELLOW; URINE EPITHELIAL CELL AUTO 0-5 /lpf (0-5); URINE NITRITE NEG (NEG); URINE SPECIFIC GRAVITY 1.022 (1.000-1.030); UROBILINOGEN NEG (NEG); ZZUR CULT IF INDIC CLEAN CATCH NO
[2016-12-04 13:27] LABS: MANUAL MICROSCOPIC REQUIRED? NO; REVIEW REQ? NO
[2016-12-04 13:40] LABS: URINE PROTIEN/CREAT RATIO 0.1 (0-0.2); URINE TOTAL PROTEIN 26.5 mg/dl (0-11.9)
[2016-12-04 13:50] LABS: BLOOD UREA NITROGEN 27 mg/dl (7-18); BUN/CREATININE RATIO 14.1 (10-20); CALCIUM 8.3 mg/dl (8.5-10.1); CARBON DIOXIDE 27 mmol/L (21-32); CHLORIDE 107 mmol/L (98-107); GLUCOSE 117 mg/dl (70-99); MAGNESIUM 2.4 mg/dl (1.8-2.4); POTASSIUM 4.1 mmol/L (3.5-5.1); SODIUM 139 mmol/L (136-145)
[2016-12-04 13:51] LABS: PHOSPHORUS 2.9 mg/dl (2.5-4.9)
== END | disposition home or self-care (01) ==
LOC: C.LAB 11:38
PROVIDERS: ATTEND Internal Medicine Nephrology
DX: E55.9 Vitamin D deficiency, unspecified (principal)

== ENCOUNTER → 2017-02-06 | Outpatient (CLI) | payer OTHER ==
[~2017-02-06] MED LIST changes: -BENA1TAB19 PO; +BENA1TAB53 PO; -GFNSR600 PO
[2017-02-06 12:09] LABS: BASO % 0.2 %; BASO ABS # 0.01 K/uL (0-0.2); COMPLETE YES; EOS % 2.1 %; HEMATOCRIT 36.6 % (42-52); IG% 0.4 %; LYMPH % 19.2 %; LYMPH ABS # 1.01 K/uL (1.2-3.4); MEAN CELL VOLUME 83.6 fL (80-100); MEAN CORPUSCULAR HEMOGLOBIN 28.8 pg (25-34); MEAN CORPUSCULAR HGB CONC 34.4 g/dl (32-36); MEAN PLATELET VOLUME 10.4 fL (7.4-10.4); MONO % 11.4 %; NEUT % 66.7 %; PLATELET COUNT 108 K/uL (130-400); RED BLOOD COUNT 4.38 M/uL (4.7-6.1); WHITE BLOOD COUNT 5.25 K/uL (4.8-10.8)
[2017-02-06 12:17] LABS: ALT/SGPT 21 U/L (12-78); AST/SGOT 13 U/L (15-37); BLOOD UREA NITROGEN 24 mg/dl (7-18); BUN/CREATININE RATIO 12.6 (10-20); CALCIUM 8.7 mg/dl (8.5-10.1); CARBON DIOXIDE 28 mmol/L (21-32); CHLORIDE 104 mmol/L (98-107); CREATININE 1.87 mg/dl (0.60-1.40); GLUCOSE 205 mg/dl (70-99); POTASSIUM 4.6 mmol/L (3.5-5.1); SODIUM 139 mmol/L (136-145)
[2017-02-06 12:23] LABS: ESTIMATED AVERAGE GLUCOSE 131 mg/dl; HA1C FLAG Normal (Normal)
[2017-02-06 12:26] LABS: ALKALINE PHOSPHATASE 99 U/L (45-117); CHOLESTEROL 116 mg/dl (0-200); CHOLESTEROL/HDL RATIO 3.4; HDL CHOLESTEROL 34 mg/dl; LDL CHOLESTEROL CALCULATED 44 mg/dl; THYROID STIMULATING HORMONE 0.837 uIu/ml (0.300-4.500); TRIGLYCERIDES 190 mg/dl (0-150); VERY LOW DENSITY LIPOPROT CALC 38 mg/dl
== END | disposition home or self-care (01) ==
LOC: C.LABBFT 09:32
PROVIDERS: ATTEND Physician Assistant Medical
DX: E11.9 Type 2 diabetes mellitus without complications (principal); N18.3 Chronic kidney disease, stage 3 (moderate); D64.9 Anemia, unspecified; R53.83 Other fatigue; E78.00 Pure hypercholesterolemia, unspecified

== ENCOUNTER → 2017-02-09 | Outpatient (CLI) | payer OTHER ==
[2017-02-09 13:28] LABS: FERRITIN 122.4 ng/ml (8.0-388.0)
== END | disposition home or self-care (01) ==
LOC: C.LAB1850 11:41
PROVIDERS: ATTEND Physician Assistant Medical
DX: E11.9 Type 2 diabetes mellitus without complications (principal)

== ENCOUNTER → 2017-05-11 | Outpatient (CLI) | payer OTHER ==
[~2017-05-11] MED LIST changes: +ATOR-24 PO; -BENA1TAB53 PO; -DEXT1LOZ PO; +DULA1INJ SC; +DVN/160 PO; -ROSU40TA PO; +TRAM-10 PO
[2017-05-11 12:49] LABS: BASO % 0.4 %; BASO ABS # 0.02 K/uL (0-0.2); EOS % 3.4 %; EOS ABS # 0.18 K/uL (0-0.5); HEMATOCRIT 35.7 % (42-52); HEMOGLOBIN 12.4 g/dL (14.0-18.0); IG# 0.02 K/uL (0.00-0.02); LYMPH % 20.5 %; MEAN CELL VOLUME 83.4 fL (80-100); MEAN CORPUSCULAR HGB CONC 34.7 g/dl (32-36); MEAN PLATELET VOLUME 10.1 fL (7.4-10.4); MONO % 9.3 %; NEUT ABS # 3.55 K/uL (1.4-6.5); PLATELET COUNT 125 K/uL (130-400); RED CELL DISTRIBUTION WIDTH CV 13.2 % (11.5-14.5); RED CELL DISTRIBUTION WIDTH SD 39.6 fL (36.4-46.3); WHITE BLOOD COUNT 5.37 K/uL (4.8-10.8)
[2017-05-11 13:12] LABS: ALBUMIN 3.7 gm/dl (3.4-5.0); BLOOD UREA NITROGEN 35 mg/dl (7-18); CALCIUM 8.8 mg/dl (8.5-10.1); CARBON DIOXIDE 28 mmol/L (21-32); CREATININE 2.16 mg/dl (0.60-1.40); GLUCOSE 211 mg/dl (70-99); PHOSPHORUS 4.3 mg/dl (2.5-4.9); POTASSIUM 4.6 mmol/L (3.5-5.1); SODIUM 139 mmol/L (136-145)
== END | disposition home or self-care (01) ==
LOC: C.LABBFT 08:44
PROVIDERS: ATTEND Internal Medicine Nephrology
DX: E11.9 Type 2 diabetes mellitus without complications (principal); D64.9 Anemia, unspecified; N18.3 Chronic kidney disease, stage 3 (moderate); E55.9 Vitamin D deficiency, unspecified

== ENCOUNTER → 2017-06-04 | Outpatient (CLI) | payer OTHER ==
[2017-06-04 17:45] LABS: ALBUMIN 3.7 gm/dl (3.4-5.0); BLOOD UREA NITROGEN 48 mg/dl (7-18); CALCIUM 8.6 mg/dl (8.5-10.1); CARBON DIOXIDE 24 mmol/L (21-32); CREATININE 2.96 mg/dl (0.60-1.40); GLUCOSE 155 mg/dl (70-99); PHOSPHORUS 3.8 mg/dl (2.5-4.9); POTASSIUM 5.1 mmol/L (3.5-5.1); SODIUM 140 mmol/L (136-145)
== END | disposition home or self-care (01) ==
LOC: C.LABBFT 14:02
PROVIDERS: ATTEND Internal Medicine Nephrology
DX: N18.3 Chronic kidney disease, stage 3 (moderate) (principal)

== ENCOUNTER 2017-06-09 16:45 | Inpatient (IN) | payer OTHER ==
[~2017-06-09] VITALS: Ht 162.6 cm; Wt 110.1 kg
[2017-06-09 17:35] LABS: EOS % 2.3 %; EOS ABS # 0.12 K/uL (0-0.5); HEMOGLOBIN 12.3 g/dL (14.0-18.0); IG# 0.01 K/uL (0.00-0.02); LYMPH % 22.2 %; LYMPH ABS # 1.15 K/uL (1.2-3.4); MEAN CELL VOLUME 83.9 fL (80-100); MEAN CORPUSCULAR HEMOGLOBIN 29.5 pg (25-34); MEAN CORPUSCULAR HGB CONC 35.1 g/dl (32-36); MEAN PLATELET VOLUME 9.2 fL (7.4-10.4); MONO % 9.7 %; NEUT % 65.6 %; NEUT ABS # 3.39 K/uL (1.4-6.5); PLATELET COUNT 112 K/uL (130-400); RED CELL DISTRIBUTION WIDTH CV 13.3 % (11.5-14.5); WHITE BLOOD COUNT 5.17 K/uL (4.8-10.8)
--- NOTE | 2017-06-09 17:43 | DIAGNOSTIC IMAGING REPORT ---
CHEST ONE VIEW PORTABLE CLINICAL HISTORY: EVALUATE RESPIRATORY DISTRESS.DYSPNEA dyspnea COMPARISON STUDY: 11/27/2016 FINDINGS: Moderate cardiomegaly. Lungs are clear. Diaphragms smooth. IMPRESSION: Moderate cardiomegaly. Otherwise negative study. The above report was generated using voice recognition software. It may contain grammatical, syntax or spelling errors. Electronically signed by: Nilesh Townsend M.D. 06/09/2017 5:42 PM Dictated Date/Time: 06/09/2017 5:42 PM
[2017-06-09 17:44] LABS: PTT PATIENT 25.9 SECONDS (21.0-31.0)
[2017-06-09 17:51] LABS: ALBUMIN 3.8 gm/dl (3.4-5.0); ALT/SGPT 24 U/L (12-78); BLOOD UREA NITROGEN 63 mg/dl (7-18); CALCIUM 8.3 mg/dl (8.5-10.1); CARBON DIOXIDE 22 mmol/L (21-32); CREATININE 3.03 mg/dl (0.60-1.40); GLUCOSE 86 mg/dl (70-99); POTASSIUM 5.6 mmol/L (3.5-5.1); SODIUM 140 mmol/L (136-145)
[2017-06-09 17:57] LABS: ALKALINE PHOSPHATASE 75 U/L (45-117); AST/SGOT 15 U/L (15-37); CKMB 1.1 ng/ml (0.5-3.6); TOTAL PROTEIN 7.5 gm/dl (6.4-8.2)
[2017-06-09] MEDS ORDERED: CHOL1TAB63 (18:01)
[2017-06-09] MEDS ORDERED: INSDGI SQ (18:01)
[2017-06-09] MEDS ORDERED: FUROSEMIDE 40 MG/4 ML VIAL IV STA (19:09)
[2017-06-09] MEDS ORDERED: ONDANSETRON INJ 2 MG/ML 2 ML VIAL IV PRN (19:30)
[2017-06-09] MEDS ORDERED: MAGNESIUM HYDROXIDE SUSP 30 ML UDC PO PRN (19:30)
[2017-06-09] MEDS ORDERED: POLYETHYLENE (MIRALAX) 17 GM PACK PO PRN (19:30)
[2017-06-09] MEDS ORDERED: ACETAMINOPHEN 325 MG TAB PO PRN (19:30)
[2017-06-09] MEDS ORDERED: ALUMINUM/MAGNESIUM/SIMETH (MAALOX MAX) 30 ML UDC PO PRN (19:30)
[2017-06-09] MEDS ORDERED: MoRPHine SULFATE 2 MG/ML CARP IV PRN (19:30)
--- NOTE | 2017-06-09 19:53 | History and Physical ---
History & Physical Date & Time of Service: Jun 09, 2017 at 19:36 Chief Complaint: Sob,Congestive Heart Failure Hx Primary Care Physician: Narciso Loo M.D. History of Present Illness Source: patient 62 y/o M Hx CHF, HPL, HTN, DMII, CAD, thrombocytopenia, obese, MARISA. The pt presents with progressive SOB over the course of the week which is exacerbated with exertion. He has had some weight gain which he cannot quantify and states that his abdomen feels distended which he states is where he tends to accumulate fluid. He denies a productive cough, n/v or fevers. He had had doubled his Lasix dose from 40mg to 80mg over the last 2 days. Initial labs are notable for worsening renal function, mild hyperkalemia. Past Medical/Surgical History 1) CHF - unspecified 2) MARISA - CPAP 3) Obese 4) HPL 5) HTN 6) DM II 7) Hepatic steatosis 8) Chronic, mild thrombocytopenia 9) CAD - nonocclusive per cath 2015 Family History Cancer Diabetes mellitus Lung disease Social History Smoking Status: Never Smoker Drug Use: none Occupational Status: disabled Allergies Coded Allergies: No Known Allergies (Unverified , 06/09/17) Home Medications Scheduled Aspirin (Aspirin Ec), 81 MG PO DAILY Atorvastatin (Lipitor), 40 MG PO QPM Carvedilol (Coreg), 25 MG PO BID Cholecalciferol (Vitamin D3), 50,000 UNITS WK Furosemide (Lasix), 40 MG PO QAM Glipizide (Glipizide ER), 10 MG PO BID Hydralazine Hcl (Apresoline), 25 MG PO TID Insulin Glargine (Lantus), 30 UNITS SC QPM Isosorbide Mononitrate Ext Rel (Imdur Ext Rel), 60 MG PO QAM Spironolactone (Aldactone), 25 MG PO QAM Valsartan (Diovan), 160 MG PO QAM Scheduled PRN Tramadol (Ultram), 50 MG PO Q4H PRN for Pain Review of Systems Constitutional: + problem reported (possible weight gain), No fever, No chills , No sweats Eyes: No worsening of vision ENT: No hearing loss, No unusual epistaxis, No nasal symptoms Respiratory: + shortness of breath, + dyspnea on exertion, + dyspnea at rest, No cough, No sputum, No wheezing Cardiovascular: No chest pain Abdomen: + problem reported (distention reported), No pain, No nausea, No vomiting Musculoskeletal: No joint pain, No muscle pain Genitourinary - Male: No hematuria, No dysuria Neurologic: No memory loss, No paralysis, No weakness Psychiatric: No depression symptoms Endocrine: No fatigue Hematologic / Lymphatic: No abnormal bleeding/bruising Integumentary: No rash Allergic / Immunologic: No environmental allergies Physical Exam Vital Signs Date Time Temp Pulse Resp B/P (MAP) Pulse Ox O2 Delivery O2 Flow Rate FiO2 06/09/17 18:28 64 06/09/17 18:11 67 18 109/68 97 Room Air 06/09/17 17:17 97 Room Air 06/09/17 16:54 97 Room Air 06/09/17 16:53 37.3 73 18 131/70 98 Room Air General Appearance: WD/WN, no apparent distress Head: normocephalic Eyes: normal inspection ENT: normal ENT inspection, pharynx normal Neck: supple, + pertinent finding (Cannot assess JVD) Respiratory/Chest: chest non-tender, lungs clear, normal breath sounds Cardiovascular: regular rate, rhythm, no edema Abdomen/GI: normal bowel sounds, non tender, soft Back: normal inspection, no CVA tenderness Extremities/Musculoskelatal: + pertinent finding (Minimal LE edema) Neurologic/Psych: collar setter II-XII nml as tested, no motor/sensory deficits, alert, oriented x 3 Skin: normal color Diagnostics Laboratory Results Results Past 24 Hours Test 06/09/17 17:26 06/09/17 18:14 Range/Units White Blood Count 5.17 4.8-10.8 K/uL Red Blood Count 4.17 4.7-6.1 M/uL Hemoglobin 12.3 14.0-18.0 g/dL Hematocrit 35.0 42-52 % Mean Corpuscular Volume 83.9 80-100 fL Mean Corpuscular Hemoglobin 29.5 25-34 pg Mean Corpuscular Hemoglobin Concent 35.1 32-36 g/dl Platelet Count 112 130-400 K/uL Mean Platelet Volume 9.2 7.4-10.4 fL Neutrophils (%) (Auto) 65.6 % Lymphocytes (%) (Auto) 22.2 % Monocytes (%) (Auto) 9.7 % Eosinophils (%) (Auto) 2.3 % Basophils (%) (Auto) 0.0 % Neutrophils # (Auto) 3.39 1.4-6.5 K/uL Lymphocytes # (Auto) 1.15 1.2-3.4 K/uL Monocytes # (Auto) 0.50 0.11-0.59 K/uL Eosinophils # (Auto) 0.12 0-0.5 K/uL Basophils # (Auto) 0.00 0-0.2 K/uL RDW Standard Deviation 40.0 36.4-46.3 fL RDW Coefficient of Variation 13.3 11.5-14.5 % Immature Granulocyte % (Auto) 0.2 % Immature Granulocyte # (Auto) 0.01 0.00-0.02 K/uL Prothrombin Time 10.7 9.0-12.0 SECONDS Prothromb Time International Ratio 1.0 0.9-1.1 Activated Partial Thromboplast Time 25.9 21.0-31.0 SECONDS Partial Thromboplastin Ratio 1.0 Sodium Level 140 136-145 mmol/L Potassium Level 5.6 3.5-5.1 mmol/L Chloride Level 112 98-107 mmol/L Carbon Dioxide Level 22 21-32 mmol/L Anion Gap 6.0 3-11 mmol/L Blood Urea Nitrogen 63 7-18 mg/dl Creatinine 3.03 0.60-1.40 mg/dl Est Creatinine Clear Calc Drug Dose 29.8 ml/min Estimated GFR () 24.7 Estimated GFR (Non- 21.3 BUN/Creatinine Ratio 20.7 10-20 Random Glucose 86 70-99 mg/dl Calcium Level 8.3 8.5-10.1 mg/dl Total Bilirubin 0.7 0.2-1 mg/dl Aspartate Amino Transf (AST/SGOT) 15 15-37 U/L Alanine Aminotransferase (ALT/SGPT) 24 12-78 U/L Alkaline Phosphatase 75 45-117 U/L Total Creatine Kinase 61 39-308 U/L Creatine Kinase MB 1.1 0.5-3.6 ng/ml Creatine Kinase MB Ratio 1.8 0-3.0 Troponin I < 0.015 0-0.045 ng/ml Pro-B-Type Natriuretic Peptide 151 0-900 pg/ml Total Protein 7.5 6.4-8.2 gm/dl Albumin 3.8 3.4-5.0 gm/dl Globulin 3.7 2.5-4.0 gm/dl Albumin/Globulin Ratio 1.0 0.9-2 Urine Color YELLOW Urine Appearance CLEAR CLEAR Urine pH 5.0 4.5-7.5 Urine Specific [place] 1.009 1.000-1.030 Urine Protein NEG NEG Urine Glucose (UA) NEG NEG Urine Ketones NEG NEG Urine Occult Blood NEG NEG Urine Nitrite NEG NEG Urine Bilirubin NEG NEG Urine Urobilinogen NEG NEG Urine Leukocyte Esterase NEG NEG CXR normal EKG NSR, incomplete RBBB Impression Assessment and Plan 62 y/o M Hx CHF, HPL, HTN, DMII, CAD, thrombocytopenia, obese, MARISA. The pt presents with progressive SOB over the course of the week which is exacerbated with exertion. He has had some weight gain which he cannot quantify and states that his abdomen feels distended which he states is where he ends to accumulate fluid. He denies a productive cough, n/v or fevers. He had had doubled his Lasix dose from 40mg to 80mg over the last 2 days. Initial labs are notable for worsening renal function, mild hyperkalemia. 1) SOB - largely exertional - Pt will receive IV Lasix starting at 40 BID and received 80 IV in the ER. We will consult his rental representative and trend his weight , I/O. He will remain on Coreg. His ARB is held due to ARF. We cannot assess his volume status by examination due to his habitus. It is noted that a CXR is read as clear and his lungs are clear on exam, so that if he does not improve clinically with diuresis, alternative etiologies should be explored. Although he could not quantify his weight gain, an ER visit 03/11 indicates he has gained 17 pounds since then. We would consider Torsemide or Bumex going forward although adjustments will be left ot the discretion of cardiology. 2) Acute on chronic RF / mild hyperK - hopefully his renal function will improve with diuresis. We will trend AM. Nephrology should be contacted if there is worsening or lack of improvement. His ARB is held both due to RF and HyperK 3) DM II - placed on SS 4) HTN - will cont Hydralazine, Coreg - Losartan held 5) CAD - nonocclusive as of 2014 - no evidence of ACS - cont ASA - He is apparently statin-intolerant now although he had been taking Lipitor in the past 6) MARISA - will provide CPAP HS 7) Morbid obesity - would benefit from counseling on diet and exercise prior to DC 8) Thrombocytopenia - unchanged from baseline Full code - Heparin prophylaxis Total time for this admit including review of labs, meds, imaging, records - discussion with pt and ER attending - 37 min Resuscitation Status VTE Prophylaxis Will order VTE Prophylaxis: Yes
[2017-06-09] MEDS ORDERED: IV FLUIDS COMPLETED PRN (20:00)
[2017-06-09 20:32] VITALS: BP 113/62; PULSE 70; TEMP 36.6; O2SAT 98; Ht 162.6 cm; Wt 110.1 kg
[2017-06-09] MEDS: INSULIN ASPART 100 UNITS/ML 3 ML PEN SC SCH (21:00)
[2017-06-09] MEDS: CARVEDILOL 25 MG TAB PO SCH (22:06)
[2017-06-09] MEDS: INSULIN GLARGINE SOLOSTAR 100 UNITS/ML 3 ML PEN SC SCH (22:09)
[2017-06-09] MEDS: HEPARIN SOD 5000 UNIT/0.5 ML CARP SQ SCH (22:09)
--- NOTE | 2017-06-09 22:29 | EMERGENCY ROOM VISIT NOTE ---
History Report prepared by Jasmine: Allison Mccarthy Under the Supervision of: Dr. Daniel Batista M.D. First contact with patient: 17:10 Chief Complaint: SHORTNESS OF BREATH Stated Complaint: SOB,CONGESTIVE HEART FAILURE HX Nursing Triage Summary: shortness of breath for the past several. increase in weight over the past couple days. taking lasix hx of chf History of Present Illness The patient is a 62 year old male who presents to the Emergency Room with complaints of worsening general shortness of breath since this morning. He also reports increased weight gain. He states that he was diagnosed with CHF in 2014 while living in [place]. He regularly sees Dr. Hurtado, cardiology to follow up. He reports tightness in his chest, though denies any pain. He denies any problems while lying flat. He regularly takes 40 mg of Lasix daily. He has a history of kidney failure. He was informed to take an extra dose if his weight increases. He took 80 mg of Lasix in the last two days, though denies taking any Lasix today. He notes that he has not had increased urine output with the Lasix like he normally does. He reports baseline muscle pains. He states that he was on Lipitor and had to stop taking the Lipitor due to the pain. He denies any new muscle pain. Pt denies LOC, headache, fevers, chills, diaphoresis, visual changes, neck pain, nausea, vomiting, abdominal pain, back pain, melena, hematochezia, urinary symptoms, numbness, weakness, rash, or other complaints. Source of History: patient Onset: since this morning Position: other (general ) Quality: other (shortness of breath) Timing: worsening Associated Symptoms: + chest pain (chest tightness) Note: He notes muscle pain and weight gain. Review of Systems See HPI for pertinent positives and negatives. A total of ten systems were reviewed and were otherwise negative. Past Medical & Surgical Medical Problems: (1) Acute on chronic renal failure (2) CHF (congestive heart failure) (3) CHF exacerbation (4) Diabetes (5) Fatty liver (6) HTN (hypertension) (7) Kidney failure Surgical Problems: (1) H/O cervical spine surgery (2) S/P wrist surgery Family History Cancer Diabetes mellitus Lung disease Social History Smoking Status: Light Tobacco Smoker (cigars occasionally) Smokeless Tobacco Use: No Alcohol Use: none Drug Use: none Marital Status: Housing Status: lives with significant other Occupation Status: disabled Current/Historical Medications Scheduled Aspirin (Aspirin Ec), 81 MG PO DAILY Atorvastatin (Lipitor), 40 MG PO QPM Carvedilol (Coreg), 25 MG PO BID Cholecalciferol (Vitamin D3), 50,000 UNITS WK Furosemide (Lasix), 40 MG PO QAM Glipizide (Glipizide ER), 10 MG PO BID Hydralazine Hcl (Apresoline), 25 MG PO TID Insulin Glargine (Lantus), 30 UNITS SC QPM Isosorbide Mononitrate Ext Rel (Imdur Ext Rel), 60 MG PO QAM Spironolactone (Aldactone), 25 MG PO QAM Valsartan (Diovan), 160 MG PO QAM Scheduled PRN Tramadol (Ultram), 50 MG PO Q4H PRN for Pain Allergies Coded Allergies: No Known Allergies (Unverified , 06/09/17) Physical Exam Vital Signs Date Time Temp Pulse Resp B/P (MAP) Pulse Ox O2 Delivery O2 Flow Rate FiO2 06/09/17 18:28 64 06/09/17 18:11 67 18 109/68 97 Room Air 06/09/17 17:17 97 Room Air 06/09/17 16:54 97 Room Air 06/09/17 16:53 37.3 73 18 131/70 98 Room Air Physical Exam GENERAL: Awake, alert, well-appearing, in no distress. Obese. HENT: Normocephalic, atraumatic. Oropharynx unremarkable. EYES: Normal conjunctiva. Sclera non-icteric. NECK: Supple. No nuchal rigidity. FROM. No masses. RESPIRATORY: Clear to auscultation. No wheezes. No rales. Normal respiratory effort. CARDIAC: Normal rate. Normal rhythm. No murmurs. No rubs. Extremities warm and well perfused. Pulses equal. No JVD. GI: Soft, non-distended. No tenderness to palpation. No rebound or guarding. No masses. RECTAL: Deferred. MUSCULOSKELETAL: Atraumatic. Chest examination reveals no tenderness. There is no CVA tenderness to palpation. No joint edema. LOWER EXTREMITIES: Calves are equal size bilaterally and non-tender. Trace LE edema. No discoloration. NEURO: Normal sensorium. No sensory or motor deficits noted. SKIN: No rash or jaundice noted. Medical Decision & Procedures ER Provider Diagnostic Interpretation: Radiology results as stated below per my review and radiologist interpretation: CHEST ONE VIEW PORTABLE CLINICAL HISTORY: EVALUATE RESPIRATORY DISTRESS.DYSPNEA dyspnea COMPARISON STUDY: 11/27/2016 FINDINGS: Moderate cardiomegaly. Lungs are clear. Diaphragms smooth. IMPRESSION: Moderate cardiomegaly. Otherwise negative study. The above report was generated using voice recognition software. It may contain grammatical, syntax or spelling errors. Electronically signed by: Nilesh Townsend M.D. 06/09/2017 5:42 PM Dictated Date/Time: 06/09/2017 5:42 PM Laboratory Results 06/09/17 17:26 Red Blood Count 4.17, Mean Corpuscular Volume 83.9, Mean Corpuscular Hemoglobin 29.5, Mean Corpuscular Hemoglobin Concent 35.1, Mean Platelet Volume 9.2, Neutrophils (%) (Auto) 65.6, Lymphocytes (%) (Auto) 22.2, Monocytes (%) (Auto) 9.7, Eosinophils (%) (Auto) 2.3, Basophils (%) (Auto) 0.0, Neutrophils # (Auto) 3.39, Lymphocytes # (Auto) 1.15, Monocytes # (Auto) 0.50, Eosinophils # (Auto) 0.12, Basophils # (Auto) 0.00 06/09/17 17:26 Test 06/09/17 17:26 06/09/17 18:14 White Blood Count 5.17 K/uL (4.8-10.8) Red Blood Count 4.17 M/uL (4.7-6.1) Hemoglobin 12.3 g/dL (14.0-18.0) Hematocrit 35.0 % (42-52) Mean Corpuscular Volume 83.9 fL (80-100) Mean Corpuscular Hemoglobin 29.5 pg (25-34) Mean Corpuscular Hemoglobin Concent 35.1 g/dl (32-36) Platelet Count 112 K/uL (130-400) Mean Platelet Volume 9.2 fL (7.4-10.4) Neutrophils (%) (Auto) 65.6 % Lymphocytes (%) (Auto) 22.2 % Monocytes (%) (Auto) 9.7 % Eosinophils (%) (Auto) 2.3 % Basophils (%) (Auto) 0.0 % Neutrophils # (Auto) 3.39 K/uL (1.4-6.5) Lymphocytes # (Auto) 1.15 K/uL (1.2-3.4) Monocytes # (Auto) 0.50 K/uL (0.11-0.59) Eosinophils # (Auto) 0.12 K/uL (0-0.5) Basophils # (Auto) 0.00 K/uL (0-0.2) RDW Standard Deviation 40.0 fL (36.4-46.3) RDW Coefficient of Variation 13.3 % (11.5-14.5) Immature Granulocyte % (Auto) 0.2 % Immature Granulocyte # (Auto) 0.01 K/uL (0.00-0.02) Prothrombin Time 10.7 SECONDS (9.0-12.0) Prothromb Time International Ratio 1.0 (0.9-1.1) Activated Partial Thromboplast Time 25.9 SECONDS (21.0-31.0) Partial Thromboplastin Ratio 1.0 Anion Gap 6.0 mmol/L (3-11) Est Creatinine Clear Calc Drug Dose 29.8 ml/min Estimated GFR () 24.7 Estimated GFR (Non- 21.3 BUN/Creatinine Ratio 20.7 (10-20) Calcium Level 8.3 mg/dl (8.5-10.1) Total Bilirubin 0.7 mg/dl (0.2-1) Aspartate Amino Transf (AST/SGOT) 15 U/L (15-37) Alanine Aminotransferase (ALT/SGPT) 24 U/L (12-78) Alkaline Phosphatase 75 U/L (45-117) Total Creatine Kinase 61 U/L (39-308) Creatine Kinase MB 1.1 ng/ml (0.5-3.6) Creatine Kinase MB Ratio 1.8 (0-3.0) Troponin I < 0.015 ng/ml (0-0.045) Pro-B-Type Natriuretic Peptide 151 pg/ml (0-900) Total Protein 7.5 gm/dl (6.4-8.2) Albumin 3.8 gm/dl (3.4-5.0) Globulin 3.7 gm/dl (2.5-4.0) Albumin/Globulin Ratio 1.0 (0.9-2) Hepatitis C Antibody Screen NEG (NEG) Urine Color YELLOW Urine Appearance CLEAR (CLEAR) Urine pH 5.0 (4.5-7.5) Urine Specific Sylvia 1.009 (1.000-1.030) Urine Protein NEG (NEG) Urine Glucose (UA) NEG (NEG) Urine Ketones NEG (NEG) Urine Occult Blood NEG (NEG) Urine Nitrite NEG (NEG) Urine Bilirubin NEG (NEG) Urine Urobilinogen NEG (NEG) Urine Leukocyte Esterase NEG (NEG) Laboratory results reviewed by me Medications Administered Medications (Trade) Dose Ordered Sig/Parveen Route Start Time Stop Time Status Last Admin Dose Admin Furosemide (Lasix Inj) 80 mg NOW STAT IV 06/09/17 19:09 06/09/17 19:11 DC 06/09/17 19:29 80 MG ECG Per My Interpretation Indication: SOB/dyspnea Rate (beats per minute): 73 Rhythm: normal sinus, other (with sinus arrythmia) Findings: RBBB (incomplete), no acute ischemic change, no ectopy ED Course 1717: The patient was evaluated in room B10. A complete history and physical exam was performed. 1905: I spoke with Dr. Yu, general warehouse associate. We discussed the patient's case. He recommends IV Lasix 80 mg. He recommends the patient be further evaluated. 1908: Ordered Lasix 80 mg IV 1911: I reassessed the patient at this time. He is feeling better and resting comfortably. I discussed the results and treatment plan with the patient. I answered all pertaining questions that he had. He expressed understanding and verbalized agreement. The patient will be further evaluated. 1929: Dr. Kimble [facility] hospitalist is evaluating the patient. 2019: I spoke with ABHIJEET Dacosta hospitalist. We discussed the patient's case. The patient will be evaluated by the [facility] for further management. Medical Decision Triage Nursing notes reviewed. The patient's presentation and history were concerning for shortness of breath and weight gain. Etiologies such as CHF, renal failure, pneumonia, COPD, reactive airway disease , cardiac ischemia, pulmonary embolism, pneumothorax, musculoskeletal, infections, gastrointestinal, as well as others were entertained. The patient was evaluated. Record review indicates that he has gained 8 kg in the last 2 months. He has been doubling his Lasix without any effect. He has stage III kidney disease. Blood work, chest x-ray and ECG were performed. The patient was found to have an elevated creatinine but this was not far off baseline. He did have mild hyperkalemia. The patient's chest x-ray was unremarkable. The rest of his diagnostic testing was unremarkable. I did place a consultation with nephrology and spoke to Dr. Yu. He did recommend IV Lasix, 80 mg and admission to the hospital for IV diuresis as he has been failing outpatient management with his current regimen. The family was informed. Consultation was made with internal medicine. He was evaluated in the ER for further management. Medication Reconcilliation Current Medication List: was personally reviewed by me Blood Pressure Screening Patient's blood pressure: Normal blood pressure Consults Time Called: 1899 Consulting Physician: Dr. Yu, general warehouse associate Returned Call: [address] Yu, general warehouse associate. We discussed the patient's case. He recommends IV Lasix 80 mg. He recommends the patient be further evaluated. Additional Consults: Time Called: 1912 Consulted Physician: ABHIJEET Dacosta hospitalist Returned Call: 2019 Additional Comments: I spoke with Dr. Kimble [facility] hospitalist. We discussed the patient's case. The patient will be evaluated by the [facility] for further management. Impression Primary Impression: SOB (shortness of breath) Additional Impressions: Volume overload Failure of outpatient treatment Renal insufficiency Scribe Attestation The scribe's documentation has been prepared under my direction and personally reviewed by me in its entirety. I confirm that the note above accurately reflects all work, treatment, procedures, and medical decision making performed by me. Departure Information Dispostion Being Evaluated By Hospitalist Referrals Narciso Loo M.D. (PCP) Patient Instructions My [facility] Problem Qualifiers
[2017-06-10] VITALS (10 sets, daily range): BP systolic 103–116; BP diastolic 59–73; PULSE 65–75; TEMP 36.5–36.9; O2SAT 94–97
[2017-06-10] MEDS: HEPARIN SOD 5000 UNIT/0.5 ML CARP SQ SCH ×3 (06:24→20:49)
[2017-06-10 06:59] LABS: HEMATOCRIT 34.5 % (42-52); MEAN CELL VOLUME 83.9 fL (80-100); MEAN CORPUSCULAR HEMOGLOBIN 29.2 pg (25-34); MEAN CORPUSCULAR HGB CONC 34.8 g/dl (32-36); MEAN PLATELET VOLUME 9.7 fL (7.4-10.4); PLATELET COUNT 120 K/uL (130-400); RED CELL DISTRIBUTION WIDTH CV 13.2 % (11.5-14.5); RED CELL DISTRIBUTION WIDTH SD 39.8 fL (36.4-46.3); WHITE BLOOD COUNT 5.37 K/uL (4.8-10.8)
[2017-06-10] MEDS: INSULIN ASPART 100 UNITS/ML 3 ML PEN SC SCH ×4 (07:00→20:41)
[2017-06-10 07:19] LABS: CALCIUM 8.5 mg/dl (8.5-10.1); CREATININE 2.92 mg/dl (0.60-1.40); POTASSIUM 4.4 mmol/L (3.5-5.1)
[2017-06-10] MEDS ORDERED: FUROSEMIDE INJ 40 MG in SYRINGE 0 ML IV SCH (08:00)
[2017-06-10] MEDS: ISOSORBIDE MONONITRATE 60 MG TABCR PO SCH (08:05)
[2017-06-10] MEDS: CARVEDILOL 25 MG TAB PO SCH ×2 (08:05→20:41)
[2017-06-10] MEDS: ASPIRIN 81 MG ECTAB PO SCH (08:05)
[2017-06-10] MEDS ORDERED: SPIRONOLACTONE 25 MG TAB PO SCH (09:00)
[2017-06-10] MEDS ORDERED: PERFLUTREN LIPID MICROSPHERE (DEFINITY) IV ONE (10:22)
--- NOTE | 2017-06-10 12:42 | Hospitalist Progress Note ---
Hospitalist Progress Note Date of Service Jun 10, 2017. Subjective Pt evaluation today including: conversation w/ patient, conversation w/ foreign law consultant (Cardiology) Voiding: no voiding problems Pt reports feeling some SOB still, did not put out as much urine this AM as he did last night due to lower dose IV lasix. Describes stable angina/chest tightness with exertion that is relieved with rest. He is generally deconditioned due to chronic left hip arthritis pain limiting his activities. He reports abdominal and and worsening shortness of breath, as well as a 20 pound weight gain over the last month despite taking 80 mg daily of p.o. Lasix. Constitutional: No fever Cardiovascular: + chest pain (With exertion) Abdomen: No diarrhea, No constipation Musculoskeletal: + joint pain (Chronic left hip pain) Male : No problem reported All Other Systems: Reviewed and Negative Objective Vital Signs Date Time Temp Pulse Resp B/P (MAP) Pulse Ox O2 Delivery O2 Flow Rate FiO2 06/10/17 12:00 Room Air 06/10/17 11:08 36.6 69 20 103/59 (74) 96 Room Air 06/10/17 08:00 Room Air 06/10/17 07:24 36.5 65 20 116/73 (87) 95 Room Air 06/10/17 04:40 36.9 66 18 113/71 (85) 97 Room Air 06/10/17 04:00 97 Room Air 06/10/17 00:10 36.5 68 16 111/68 (82) 96 Room Air 06/10/17 00:00 96 Room Air 06/09/17 20:32 36.6 70 18 113/62 98 Room Air 06/09/17 19:36 61 16 123/74 98 Room Air 06/09/17 18:28 64 06/09/17 18:11 67 18 109/68 97 Room Air 06/09/17 17:17 97 Room Air 06/09/17 16:54 97 Room Air 06/09/17 16:53 37.3 73 18 131/70 98 Room Air Physical Exam General Appearance: WD/WN, no apparent distress, + obese Eyes: normal inspection, sclerae normal ENT: hearing grossly normal Neck: no carotid bruits, trachea midline, + pertinent finding (Obese neck) Respiratory/Chest: lungs clear, normal breath sounds, no respiratory distress, no accessory muscle use Cardiovascular: regular rate, rhythm, no edema, no gallop, no murmur, + pertinent finding (Difficult to assess JVD due to obesity neck) Abdomen: normal bowel sounds, non tender, soft (Heart rate) Extremities: non-tender, normal inspection, no pedal edema, no calf tenderness Neurologic/Psychiatric: alert, normal mood/affect, oriented x 3 Skin: normal color, warm/dry, no rash Laboratory Results Last 24 Hours Test 06/09/17 17:26 06/09/17 18:14 06/09/17 20:25 06/09/17 22:33 White Blood Count 5.17 K/uL Red Blood Count 4.17 M/uL Hemoglobin 12.3 g/dL Hematocrit 35.0 % Mean Corpuscular Volume 83.9 fL Mean Corpuscular Hemoglobin 29.5 pg Mean Corpuscular Hemoglobin Concent 35.1 g/dl Platelet Count 112 K/uL Mean Platelet Volume 9.2 fL Neutrophils (%) (Auto) 65.6 % Lymphocytes (%) (Auto) 22.2 % Monocytes (%) (Auto) 9.7 % Eosinophils (%) (Auto) 2.3 % Basophils (%) (Auto) 0.0 % Neutrophils # (Auto) 3.39 K/uL Lymphocytes # (Auto) 1.15 K/uL Monocytes # (Auto) 0.50 K/uL Eosinophils # (Auto) 0.12 K/uL Basophils # (Auto) 0.00 K/uL RDW Standard Deviation 40.0 fL RDW Coefficient of Variation 13.3 % Immature Granulocyte % (Auto) 0.2 % Immature Granulocyte # (Auto) 0.01 K/uL Prothrombin Time 10.7 SECONDS Prothromb Time International Ratio 1.0 Activated Partial Thromboplast Time 25.9 SECONDS Partial Thromboplastin Ratio 1.0 Sodium Level 140 mmol/L Potassium Level 5.6 mmol/L Chloride Level 112 mmol/L Carbon Dioxide Level 22 mmol/L Anion Gap 6.0 mmol/L Blood Urea Nitrogen 63 mg/dl Creatinine 3.03 mg/dl Est Creatinine Clear Calc Drug Dose 29.8 ml/min Estimated GFR () 24.7 Estimated GFR (Non- 21.3 BUN/Creatinine Ratio 20.7 Random Glucose 86 mg/dl Calcium Level 8.3 mg/dl Total Bilirubin 0.7 mg/dl Aspartate Amino Transf (AST/SGOT) 15 U/L Alanine Aminotransferase (ALT/SGPT) 24 U/L Alkaline Phosphatase 75 U/L Total Creatine Kinase 61 U/L Creatine Kinase MB 1.1 ng/ml Creatine Kinase MB Ratio 1.8 Troponin I < 0.015 ng/ml < 0.015 ng/ml Pro-B-Type Natriuretic Peptide 151 pg/ml Total Protein 7.5 gm/dl Albumin 3.8 gm/dl Globulin 3.7 gm/dl Albumin/Globulin Ratio 1.0 Hepatitis C Antibody Screen NEG Urine Color YELLOW Urine Appearance CLEAR Urine pH 5.0 Urine Specific [place] 1.009 Urine Protein NEG Urine Glucose (UA) NEG Urine Ketones NEG Urine Occult Blood NEG Urine Nitrite NEG Urine Bilirubin NEG Urine Urobilinogen NEG Urine Leukocyte Esterase NEG Bedside Glucose 109 mg/dl Test 06/10/17 06:19 06/10/17 06:39 06/10/17 11:27 White Blood Count 5.37 K/uL Red Blood Count 4.11 M/uL Hemoglobin 12.0 g/dL Hematocrit 34.5 % Mean Corpuscular Volume 83.9 fL Mean Corpuscular Hemoglobin 29.2 pg Mean Corpuscular Hemoglobin Concent 34.8 g/dl RDW Standard Deviation 39.8 fL RDW Coefficient of Variation 13.2 % Platelet Count 120 K/uL Mean Platelet Volume 9.7 fL Sodium Level 138 mmol/L Potassium Level 4.4 mmol/L Chloride Level 108 mmol/L Carbon Dioxide Level 21 mmol/L Anion Gap 9.0 mmol/L Blood Urea Nitrogen 62 mg/dl Creatinine 2.92 mg/dl Est Creatinine Clear Calc Drug Dose 30.2 ml/min Estimated GFR () 25.8 Estimated GFR (Non- 22.3 BUN/Creatinine Ratio 21.1 Random Glucose 79 mg/dl Calcium Level 8.5 mg/dl Magnesium Level 2.2 mg/dl Bedside Glucose 84 mg/dl 124 mg/dl Assessment and Plan This patient is a 62 y/o M Hx chronic combined and diastolic CHF with last known EF 50%, nonischemic cardiomyopathy with cardiac cath 2014 with 45% blockage in single-vessel, HPL, HTN, DMII, nonobstructive CAD, thrombocytopenia , obese, MARISA not currently on CPAP, alpha-1 antitrypsin deficiency, fatty liver. The pt presents with progressive SOB over the course of the week which is exacerbated with exertion. He has had some weight gain of about 20 pounds over the last 1 month or so states that his abdomen feels distended which he states is where he ends to accumulate fluid. He denies a productive cough, n/v or fevers. He had had doubled his Lasix dose from 40mg to 80mg several 3 days in a row the last month without decrease in weight. Initial labs are notable for worsening renal function, mild hyperkalemia. A proBNP was normal and his chest x-ray showed moderate cardiomegaly but no CHF otherwise. 1) SOB/Chronic combined systolic and diastolic CHF/H/o nonischemic CM-resolved - largely exertional, with weight gain. Could be secondary to worsening acute renal failure in setting of CKD stage III and cardiorenal syndrome versus acute on chtonic diastolic CHF although with normal proBNP, seems very unlikely. He is improved somewhat today with diuresis overnight. Received IV lasix 80mg in ER on admission -continue IV Lasix 40 BID but may need to increase dose to 80mg IV--will d/w Cardiology and Nephrology -continue to trend his weight, I/O -continue Coreg -holding ARB and aldactone due to ARF -ECHO formal read pending but Cardio wet read was normal EF, grade 1 diastolic dysfunction, no WMAs 2) Acute kidney injury in setting of CKD stage III / mild hyperkalemia -both improved slightly today with diuresis. Microvascular disease with DM, HTN, and cardiorenal syndrome as per outpt Nephrology notes. [employer] Consultant 3.03 on admission, baseline usually around 2.1, now decreased to 2.9 -continue to trend PRP -Consult Nephrology given worsening renal failure and need for diuresis - ARB is held both due to ARF and HyperK -avoid nephrotoxins -renally dose meds 3) DM II - HgbA1C here pending -home glipizide on hold while here -placed on SSI -accuchecks -ADA diet 4) HTN - controlled -will cont Hydralazine, Isosorbide, Coreg - Losartan held 5) CAD - nonocclusive as of 2014 - no evidence of ACS but does describe stable angina - cont ASA - He is apparently statin-intolerant -has myalgias with Lipitor in the past -need to review other statins he has been on in the past-he cannot recall -consider pravastatin -continue ASA -continue isosorbide -consider outpt stress testing once dyspnea improved 6) MARISA - will provide CPAP HS while here, no longer on at home due to insurance only covering half the cost -needs assistance as outpt to get CPAP again due to financial reasons 7) Morbid obesity/Fatty liver/Alpha-1 AT def - discussed diet and exercise for weight loss, LFTs normal -follow as outpt 8) Thrombocytopenia - unchanged from baseline Full code - Heparin prophylaxis Dispo-remain on tele, change to inpatient admission
--- NOTE | 2017-06-10 12:56 | Nephrology Consultation ---
Nephrology Consultation Date & Providers Date of Consultation: Jun 10, 2017. Primary Care Provider: Narciso Loo M.D. Referring Provider: Reason for Consultation Acute on chronic kidney injury History of Present Illness Mr. Ceron is a 62 year old white male who is seen at the request of Dr. Kimble for evaluation of acute on chronic kidney injury. Medical records in the EMR were reviewed today and are summarized as follows: Mr. Ceron has stage IIIb CKD due to diabetic nephropathy and microvascular disease. His baseline creatinine has been 1.8 - 2.1. His supervisor cold rolling is Dr. Gasca. Previous evaluation revealed a benign urine sediment. Urinary protein excretion has been ~ 100 mg / day. Renal US 05/13 revealed normal size kidneys w/ cortical thinning suggestive of microvascular disease. Mr. Ceron's medical history is also significant for BMI 40, MARISA, HTN, asbestos exposure and systolic CHF ( Echo - LVEF 45 - 50% w/ grade I diastolic dysfunction). Mr. Ceron reports that his blood pressure has been controlled w/ Carvedilol, Valsartan, Aldactone, Hydralazine and Furosemide. Over the last several days he has experienced GUTIERREZ, abdominal swelling and progressive LE edema. Despite increasing his Furosemide dose his weight germain from a baseline 230 to 240 lbs. Creatinine increased from 2.1 to 3.0. He presented to the ED for evaluation and admission was advised for IV diuretic therapy. Past Medical/Surgical History Medical: # CKD stage IIIb # HTN # Obesity (BMI 40) # MARISA # AODM # systolic CHF # Asbestos exposure Allergies Coded Allergies: No Known Allergies (Unverified , 06/09/17) Inpatient Medications Current Inpatient Medications Medications (Trade) Dose Ordered Sig/Parveen Route Start Time Stop Time Status Last Admin Dose Admin Heparin Sodium (Porcine) (Heparin Sq 5000 Unit/0.5ml) 5,000 unit Q8 SQ 06/09/17 22:00 07/09/17 21:59 06/10/17 06:24 5,000 UNIT Acetaminophen (Tylenol Tab) 650 mg Q4H PRN PO 06/09/17 19:30 07/09/17 19:29 Al Hydrox/Mg Hydrox/Simethicone (Maalox Max Susp) 15 ml Q4H PRN PO 06/09/17 19:30 07/09/17 19:29 Magnesium Hydroxide (Milk Of Magnesia Susp) 30 ml Q12H PRN PO 06/09/17 19:30 07/09/17 19:29 Ondansetron HCl (Zofran Inj) 4 mg Q6H PRN IV 06/09/17 19:30 07/09/17 19:29 Morphine Sulfate (MoRPHine SULFATE INJ) 2 mg Q30M PRN IV 06/09/17 19:30 06/23/17 19:29 Polyethylene (Miralax Powder Packet) 17 gm DAILY PRN PO 06/09/17 19:30 07/09/17 19:29 Insulin Aspart (novoLOG ASPART) SLIDING SCALE G... ACHS SC 06/09/17 21:00 07/09/17 20:59 Aspirin (Ecotrin Tab) 81 mg DAILY PO 06/10/17 09:00 07/10/17 08:59 06/10/17 08:05 81 MG Carvedilol (Coreg Tab) 25 mg BID PO 06/09/17 21:00 07/09/17 20:59 06/10/17 08:05 25 MG Hydralazine HCl (Apresoline Tab) 25 mg TID PO 06/09/17 21:00 07/09/17 20:59 06/10/17 08:05 25 MG Insulin Glargine (Lantus Solostar Pen) 30 units QPM SC 06/09/17 21:00 07/09/17 20:59 06/09/17 22:09 30 UNITS Isosorbide Mononitrate (Imdur Ext Rel Tab) 60 mg QAM PO 06/10/17 09:00 07/10/17 08:59 06/10/17 08:05 60 MG Tramadol HCl (Ultram Tab) 50 mg Q4H PRN PO 06/09/17 19:30 07/09/17 19:29 Furosemide 40 mg/ Syringe 4 ml @ 4 mls/min Q12@0800,1800 IV 06/10/17 08:00 07/10/17 07:59 06/10/17 08:05 4 MLS/MIN Miscellaneous (Iv Fluids Completed) 1 ea PRN PRN N/A 06/09/17 20:00 06/09/18 19:59 Family History Cancer Diabetes mellitus Lung disease Negative for CKD / ESRD Social History Smoking Status: Light Tobacco Smoker (cigars occasionally) Smokeless Tobacco Use: No Drug Use: none Marital Status: 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 Remote tobacco use. Review of Systems Constitutional: No fever Respiratory: + dyspnea on exertion, No cough Cardiovascular: No chest pain Abdomen: No pain, No nausea, No vomiting A complete review of systems was performed. Pertinent positives are noted above. All other systems are negative. Physical Exam Date Time Temp Pulse Resp B/P (MAP) Pulse Ox O2 Delivery O2 Flow Rate FiO2 06/10/17 12:00 Room Air 06/10/17 11:08 36.6 69 20 103/59 (74) 96 Room Air 06/10/17 08:00 Room Air 06/10/17 07:24 36.5 65 20 116/73 (87) 95 Room Air 06/10/17 04:40 36.9 66 18 113/71 (85) 97 Room Air 06/10/17 04:00 97 Room Air 06/10/17 00:10 36.5 68 16 111/68 (82) 96 Room Air 06/10/17 00:00 96 Room Air 06/09/17 20:32 36.6 70 18 113/62 98 Room Air 06/09/17 19:36 61 16 123/74 98 Room Air 06/09/17 18:28 64 06/09/17 18:11 67 18 109/68 97 Room Air 06/09/17 17:17 97 Room Air 06/09/17 16:54 97 Room Air 06/09/17 16:53 37.3 73 18 131/70 98 Room Air General Appearance: no apparent distress Head: normocephalic, atraumatic Eyes: PERRL, EOMI Neck: no adenopathy, + pertinent finding (short, thick. Unable to assess JVD) Respiratory/Chest: + rales Cardiovascular: regular rate, rhythm Abdomen/GI: normal bowel sounds, non tender, soft, + pertinent finding (obese) Extremities/Musculoskelatal: no calf tenderness, + pertinent finding (trace pretibial pitting edema) Neurologic/Psych: alert, oriented x 3 Laboratory Results Last 24 Hours Test 06/09/17 17:26 06/09/17 18:14 06/09/17 20:25 06/09/17 22:33 White Blood Count 5.17 K/uL Red Blood Count 4.17 M/uL Hemoglobin 12.3 g/dL Hematocrit 35.0 % Mean Corpuscular Volume 83.9 fL Mean Corpuscular Hemoglobin 29.5 pg Mean Corpuscular Hemoglobin Concent 35.1 g/dl Platelet Count 112 K/uL Mean Platelet Volume 9.2 fL Neutrophils (%) (Auto) 65.6 % Lymphocytes (%) (Auto) 22.2 % Monocytes (%) (Auto) 9.7 % Eosinophils (%) (Auto) 2.3 % Basophils (%) (Auto) 0.0 % Neutrophils # (Auto) 3.39 K/uL Lymphocytes # (Auto) 1.15 K/uL Monocytes # (Auto) 0.50 K/uL Eosinophils # (Auto) 0.12 K/uL Basophils # (Auto) 0.00 K/uL RDW Standard Deviation 40.0 fL RDW Coefficient of Variation 13.3 % Immature Granulocyte % (Auto) 0.2 % Immature Granulocyte # (Auto) 0.01 K/uL Prothrombin Time 10.7 SECONDS Prothromb Time International Ratio 1.0 Activated Partial Thromboplast Time 25.9 SECONDS Partial Thromboplastin Ratio 1.0 Sodium Level 140 mmol/L Potassium Level 5.6 mmol/L Chloride Level 112 mmol/L Carbon Dioxide Level 22 mmol/L Anion Gap 6.0 mmol/L Blood Urea Nitrogen 63 mg/dl Creatinine 3.03 mg/dl Est Creatinine Clear Calc Drug Dose 29.8 ml/min Estimated GFR () 24.7 Estimated GFR (Non- 21.3 BUN/Creatinine Ratio 20.7 Random Glucose 86 mg/dl Calcium Level 8.3 mg/dl Total Bilirubin 0.7 mg/dl Aspartate Amino Transf (AST/SGOT) 15 U/L Alanine Aminotransferase (ALT/SGPT) 24 U/L Alkaline Phosphatase 75 U/L Total Creatine Kinase 61 U/L Creatine Kinase MB 1.1 ng/ml Creatine Kinase MB Ratio 1.8 Troponin I < 0.015 ng/ml < 0.015 ng/ml Pro-B-Type Natriuretic Peptide 151 pg/ml Total Protein 7.5 gm/dl Albumin 3.8 gm/dl Globulin 3.7 gm/dl Albumin/Globulin Ratio 1.0 Hepatitis C Antibody Screen NEG Urine Color YELLOW Urine Appearance CLEAR Urine pH 5.0 Urine Specific [place] 1.009 Urine Protein NEG Urine Glucose (UA) NEG Urine Ketones NEG Urine Occult Blood NEG Urine Nitrite NEG Urine Bilirubin NEG Urine Urobilinogen NEG Urine Leukocyte Esterase NEG Bedside Glucose 109 mg/dl Test 06/10/17 06:19 06/10/17 06:39 06/10/17 11:27 White Blood Count 5.37 K/uL Red Blood Count 4.11 M/uL Hemoglobin 12.0 g/dL Hematocrit 34.5 % Mean Corpuscular Volume 83.9 fL Mean Corpuscular Hemoglobin 29.2 pg Mean Corpuscular Hemoglobin Concent 34.8 g/dl RDW Standard Deviation 39.8 fL RDW Coefficient of Variation 13.2 % Platelet Count 120 K/uL Mean Platelet Volume 9.7 fL Sodium Level 138 mmol/L Potassium Level 4.4 mmol/L Chloride Level 108 mmol/L Carbon Dioxide Level 21 mmol/L Anion Gap 9.0 mmol/L Blood Urea Nitrogen 62 mg/dl Creatinine 2.92 mg/dl Est Creatinine Clear Calc Drug Dose 30.2 ml/min Estimated GFR () 25.8 Estimated GFR (Non- 22.3 BUN/Creatinine Ratio 21.1 Random Glucose 79 mg/dl Calcium Level 8.5 mg/dl Magnesium Level 2.2 mg/dl Bedside Glucose 84 mg/dl 124 mg/dl Impression (1) CHF exacerbation (2) Acute on chronic renal failure (3) Diabetes (4) Hypertension Recommendations ACUTE KIDNEY INJURY: -- 05/13 Renal US report reviewed today: No obstruction -- Urine sediment is acellular. UPCR is 0.1 -- Suspect congestive renal failure related to volume overload and systolic CHF -- Creatinine trending down. Volume status improving. Electrolyte balance acceptable. Will continue to monitor -- Hold Valsartan and Aldactone -- Monitor PRP CHRONIC KIDNEY DISEASE: -- Baseline creatinine 1.8 - 2.1 HYPERTENSION: -- BP is acceptable at this time -- Hold Valsartan and Aldactone CV: -- 03/10 Echocardiogram report reviewed today: LVEF 45 - 50% w/ grade I DD -- Will increase Furosemide to 80 mg IV BID. Monitor UO. Target EDW 230 lbs -- Will consult dietitian to provide education on 1500 mg / day NaCl restricted diet
--- NOTE | 2017-06-10 16:36 | CARDIOLOGY CONSULTATION ---
DATE OF CONSULTATION: 06/10/2017 TIME: 15:43 p.m. PRIMARY GROUP EXERCISE INSTRUCTOR: Dr. Hurtado. CONSULTING PHYSICIAN: Dr. Kimble. REASON FOR CONSULTATION: CHF. HISTORY OF PRESENT ILLNESS: Mr. Ceron is a pleasant 62-year-old gentleman with history significant for nonobstructive CAD, nonischemic cardiomyopathy, hypertension, obstructive sleep apnea, CHF, hypertension, dyslipidemia, and chronic kidney disease. He is followed by Dr. Gasca for nephrology as an outpatient and Dr. Hurtado for cardiology. He states that he has been taking Lasix 40 mg daily and was informed by his referral agent to take an additional 40 mg as needed each day for weight gain, for 3 consecutive days if necessary. He watches his weight closely at home and typically when he takes extra Lasix, he is able to control his weight. More recently, he has gained 10-15 pounds and his weight was not improving with additional Lasix dosing. He felt more bloated in his abdomen and noticed increased dyspnea with exertion. It got to the point where walking around [facility], he was more significantly dyspneic and his was able to notice the change in his breathing. At times he would get chest tightness after he developed shortness of breath which would resolve when he was able to catch his breath within a few minutes. He tries to maintain a low sodium diet but does admit that he occasionally eats cups of soup thinking that by cooking the soup, the sodium would be dissolved. He was reading a label. He has occasional palpitations and occasional lightheadedness but denies syncope, orthopnea, melena, hematochezia, hematuria, or other bleeding. Secondary to myalgias, he has recently self-discontinued Lipitor. He states that he has had issues in the past with statin medications. He has noted some edema in his lower extremities and his states that after some diuresis here so far, this is the best that his legs have looked in some time. He refrains from taking NSAIDS. He received 80 mg of IV Lasix in the ER last night and diuresed significantly according to his report. He feels much better but not yet back to baseline. Lasix was then reduced to 40 mg daily and he states that he has noted a decrease in his urine output. When reviewing his I's and O's, however, he was only negative 500 yesterday and is relatively even today. REVIEW OF SYSTEMS: As above and review of systems otherwise negative/unremarkable. PAST MEDICAL HISTORY: 1. History of systolic CHF. 2. Obstructive sleep apnea but has not been using CPAP secondary to insurance issues. 3. Obesity. 4. Hypertension. 5. Dyslipidemia. 6. Nonobstructive CAD. 7. Type 2 diabetes. 8. Hepatic steatosis. 9. Mild thrombocytopenia. HOME MEDICATIONS: Include: 1. Lasix 40 mg once daily with an additional 40 mg as needed. 2. Aspirin 81 mg daily. 3. Lipitor 40 mg daily, which he recently self-discontinued. 4. Carvedilol 25 mg b.i.d. 5. Glipizide ER 10 mg b.i.d. 6. Hydralazine 25 mg t.i.d. 7. Lantus 30 units subQ q.p.m. 8. Imdur 60 mg daily. 9. Spironolactone 25 mg daily. 10. Diovan 160 mg daily. INPATIENT MEDICATIONS: Include: 1. Aspirin 81 mg daily. 2. Carvedilol 25 mg twice daily. 3. Lasix 40 mg IV b.i.d. 4. Heparin 5000 units subQ q. 8 hours. 5. Hydralazine 25 mg p.o. t.i.d. 6. Insulin Lantus 30 units daily. 7. Isosorbide mononitrate 60 mg daily. ALLERGIES: No known drug allergies. SOCIAL HISTORY: Occasionally smokes cigars, but it was recommended that he quit. No alcohol or drugs. He is and lives at home with his . They live in [place]. They have 2 children. He is currently on disability. 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 His is present at the bedside. His , Philly, is a nurse. FAMILY HISTORY: Both of his parents had pacemaker. His father had a CABG at the age of 81. PHYSICAL EXAMINATION: VITAL SIGNS: Temperature 36.6 degrees, heart rate 69 beats per minute, respiration rate 20, blood pressure 103/59 mmHg, oxygen saturation 96% on room air. I's and O's negative 500 mL yesterday, weight is 109.7 kg. GENERAL: No acute distress. He is alert. NECK: Thick and cannot assess JVD. No bruits. Normal carotid upstrokes bilaterally. HEENT: Anicteric sclerae. CARDIAC: No ventricular heave. PMI was nonpalpable. Regular, normal S1, S2. There were no audible murmurs, rubs or gallops. LUNGS: Clear to auscultation bilaterally without wheezes, rales or rhonchi. ABDOMEN: Obese, soft, nontender, nondistended. Normoactive bowel sounds. EXTREMITIES: No edema. 2+ radial pulses bilaterally. 2+ dorsalis pedis pulses bilaterally. No cyanosis. PSYCHIATRIC: Affect appears appropriate. Telemetry personally reviewed. No arrhythmia noted. Sinus rhythm. LABORATORY DATA: White blood cell count is 5.37, hemoglobin is 12, and platelets 120. Sodium 138, potassium 4.4, BUN 62, creatinine 2.92 down from 3.03, magnesium 2.2. Troponin undetectable x2. ProBNP 151. Albumin 3.8. IMAGING DATA: Chest x-ray - image personally reviewed. No obvious infiltrate. Lungs appeared clear. Echocardiogram images from today personally reviewed. Preliminary review - normal left ventricular systolic function without obvious wall motion abnormalities. Type 1 diastolic dysfunction. Full review to follow. ECG personally reviewed - 06/09/2017 demonstrating sinus rhythm with sinus arrhythmia at 73 BPM. Incomplete right bundle branch block. Cardiac catheterization at [facility] - 2016: Mid LAD 40-50% stenosis. Right dominant system. Echocardiogram - 02/25/2016 at [facility]: EF 45-50%. Type 1 diastolic dysfunction. ASSESSMENT AND PLAN: 1. Hypervolemia: Based on his weight gain and symptoms, he appeared to be hypervolemic. He had a negative BNP; however, which makes heart failure unlikely; however, this can sometimes be artificially low in obesity. Regardless, he is improving with diuretic therapy and would recommend continuation of diuretics. His urine output has dropped off with lower doses of Lasix. Recommend 80 mg of Lasix IV b.i.d. which has recently been adjusted by nephrology. We discussed the importance of a low sodium diet in detail. Strict I's and O's and daily weights. 2. Chronic diastolic congestive heart failure: Once again, his BNP is unremarkable, but he did present hypervolemic. He also has significant chronic kidney disease. Plan as above. 3. Coronary artery disease: He has nonobstructive coronary artery disease and a cardiac catheterization from 2014. Continue antiplatelet therapy in the form of aspirin. He is stating that he is intolerant to statin therapy due to myalgias. He has had some chest tightness. This may or may not be related to his hypervolemia. Reassess symptoms after diuresis. If further concern, could consider noninvasive ischemic evaluation. 4. Hypertension: Blood pressure acceptable. Plan as above. 5. Disposition: Dr. Hurtado will resume his cardiology care tomorrow. The patient's care has been discussed with Dr. Loving, the primary hospitalist service. Thank you for allowing me to participate in care of Mr. Ceron.
--- NOTE | 2017-06-10 17:00 | ECHOCARDIOGRAM REPORT ---
*NOTICE TO RECEIVING [employer] This information is strictly Confidential and protected under [place] law. [place] law prohibits you from making any further disclosure of this information unless further disclosure is expressly permitted by the written consent of the person to whom it pertains or is authorized by law. A general authorization for the release of medical or other information is not sufficient for this purpose. Hospital accepts no responsibility if the information is made available to any other person, INCLUDING THE PATIENT. Interpretation Summary * Conclusions -- * 1. Normal left ventricular size and systolic function. EF 55-60%. Mild left ventricular hypertrophy. No definite wall motion abnormalities. Type 1 diastolic dysfunction. Tissue Doppler does not suggest elevated left atrial pressure. * 2. Sclerotic aortic valve without significant stenosis. * 3. Technically difficult study, enhanced with IV Definity. * 4. No prior study available for comparison. Procedure Details * A complete two-dimensional transthoracic echocardiogram was performed (2D, M-mode, Doppler and color flow Doppler). * The study was technically difficult, but visualization was adequate with the administration of Definity ultrasound contrast. * A contrast injection of Definity was performed to improve assessment of LV function. * Contrast was injected into an intravenous site in the right arm. * One vial of Definity ultrasound contrast was diluted in normal saline to a total volume of 10 ml. A total of '2' ml of solution was administered during imaging. * Lot # [id number] of Definity utilized for procedure. * Expiration date . * The attending nurse who injected the contrast agent was MARCO Fraga. Left Ventricle * Normal left ventricular size and systolic function. EF 55-60%. Mild left ventricular hypertrophy. No definite wall motion abnormalities. Type 1 diastolic dysfunction. Right Ventricle * The right ventricle is normal in size and function. * The right ventricular systolic function is normal as assessed by tricuspid annular plane systolic excursion (TAPSE) (normal >1.5 cm). Atria * The left atrial size is normal. * Right atrium not well visualized. * There is no evidence of atrial septal defect, but resolution does not allow assessment for a patent foramen ovale. Mitral Valve * The mitral valve is grossly normal. * There is no mitral valve stenosis. * Significant mitral regurgitation is absent. Tricuspid Valve * The tricuspid valve is not well visualized. * There is no tricuspid stenosis. * Significant tricuspid regurgitation is absent. Aortic Valve * The aortic valve is trileaflet. * Sclerotic aortic valve without significant stenosis. * No hemodynamically significant valvular aortic stenosis. * No aortic regurgitation is present. Pulmonic Valve * The pulmonary valve is inadequately visualized, but the Doppler data is adequate for interpretation. * There is no pulmonic valvular stenosis. * There is no significant pulmonary regurgitation. Great Vessels * The aortic root is normal size. Pericardium/Pleural * There is no pericardial effusion. Great Vessels * Normal inferior vena cava size and collapsability with sniff indicates a normal right atrial pressure of 3 mmHg MMode 2D Measurements and Calculations IVSd 1.2 cm IVSs 1.6 cm LVIDd 4.8 cm LVIDs 3.4 cm LVPWd 1.0 cm LVPWs 1.3 cm IVS/LVPW 1.1 FS 29.4 % EDV(Teich) 107.4 ml ESV(Teich) 47.1 ml EF(Teich) 56.2 % EDV(cubed) 110.5 ml ESV(cubed) 38.9 ml EF(cubed) 64.8 % % IVS thick 35.1 % % LVPW thick 26.9 % LV mass(C)d 191.7 grams LV mass(C)dI 90.5 grams/m\S\2 LV mass(C)s 171.7 grams LV mass(C)sI 81.1 grams/m\S\2 SV(Teich) 60.4 ml SI(Teich) 28.5 ml/m\S\2 SV(cubed) 71.6 ml SI(cubed) 33.8 ml/m\S\2 Ao root diam 3.3 cm Ao root area 8.5 cm\S\2 ACS 1.8 cm LVOT diam 2.0 cm LVOT area 3.3 cm\S\2 LVAd ap4 29.2 cm\S\2 LVLd ap4 8.3 cm EDV(MOD-sp4) 84.8 ml EDV(sp4-el) 87.2 ml LVAs ap4 17.9 cm\S\2 LVLs ap4 7.7 cm ESV(MOD-sp4) 33.7 ml ESV(sp4-el) 35.3 ml EF(MOD-sp4) 60.3 % EF(sp4-el) 59.6 % LVAd ap2 26.3 cm\S\2 LVLd ap2 8.3 cm EDV(MOD-sp2) 67.7 ml EDV(sp2-el) 70.8 ml LVAs ap2 14.2 cm\S\2 LVLs ap2 6.2 cm ESV(MOD-sp2) 27.3 ml ESV(sp2-el) 27.3 ml EF(MOD-sp2) 59.7 % EF(sp2-el) 61.5 % LVLd %diff -0.14 % EDV(MOD-bp) 74.9 ml LVLs %diff -23.40 % ESV(MOD-bp) 32.9 ml EF(MOD-bp) 56.2 % SV(MOD-sp4) 51.1 ml SI(MOD-sp4) 24.1 ml/m\S\2 SV(MOD-sp2) 40.4 ml SI(MOD-sp2) 19.1 ml/m\S\2 SV(MOD-bp) 42.1 ml SI(MOD-bp) 19.9 ml/m\S\2 SV(sp4-el) 52.0 ml SI(sp4-el) 24.5 ml/m\S\2 SV(sp2-el) 43.5 ml SI(sp2-el) 20.6 ml/m\S\2 Doppler Measurements and Calculations MV E max jt 47.6 cm/sec MV A max jt 57.4 cm/sec MV E/A 0.83 MV dec time 0.21 sec Ao V2 max 150.1 cm/sec Ao max PG 9.0 mmHg Ao max PG (full) 6.3 mmHg PRATIBHA(V,A) 1.8 cm\S\2 PRATIBHA(V,D) 1.8 cm\S\2 LV V1 max PG 2.7 mmHg LV V1 max 81.8 cm/sec
[2017-06-10] MEDS: FUROSEMIDE INJ 80 MG in SYRINGE 0 ML IV SCH (17:21)
[2017-06-10] MEDS: INSULIN GLARGINE SOLOSTAR 100 UNITS/ML 3 ML PEN SC SCH (20:48)
[2017-06-10] MEDS: TRAMADOL HCL 50 MG TAB PO PRN (22:11)
[2017-06-11] VITALS (8 sets, daily range): BP systolic 91–132; BP diastolic 46–80; PULSE 61–76; TEMP 36.4–36.8; O2SAT 92–97
[2017-06-11] MEDS: HEPARIN SOD 5000 UNIT/0.5 ML CARP SQ SCH ×3 (05:58→20:41)
[2017-06-11] MEDS: INSULIN ASPART 100 UNITS/ML 3 ML PEN SC SCH ×4 (07:00→20:41)
[2017-06-11 07:02] LABS: HEMOGLOBIN A1C 6.6 % (4.5-5.6)
[2017-06-11 07:41] LABS: BASO % 0.2 %; BASO ABS # 0.01 K/uL (0-0.2); EOS % 2.3 %; EOS ABS # 0.14 K/uL (0-0.5); HEMATOCRIT 38.8 % (42-52); HEMOGLOBIN 13.6 g/dL (14.0-18.0); IG# 0.01 K/uL (0.00-0.02); LYMPH % 29.7 %; MEAN CELL VOLUME 84.2 fL (80-100); MEAN CORPUSCULAR HEMOGLOBIN 29.5 pg (25-34); MEAN CORPUSCULAR HGB CONC 35.1 g/dl (32-36); MEAN PLATELET VOLUME 10.1 fL (7.4-10.4); MONO % 9.7 %; MONO ABS # 0.59 K/uL (0.11-0.59); NEUT % 57.9 %; NEUT ABS # 3.52 K/uL (1.4-6.5); PLATELET COUNT 119 K/uL (130-400); RED CELL DISTRIBUTION WIDTH CV 13.1 % (11.5-14.5); RED CELL DISTRIBUTION WIDTH SD 39.6 fL (36.4-46.3); WHITE BLOOD COUNT 6.07 K/uL (4.8-10.8)
[2017-06-11 07:44] LABS: CALCIUM 8.5 mg/dl (8.5-10.1); CREATININE 3.59 mg/dl (0.60-1.40); POTASSIUM 4.6 mmol/L (3.5-5.1)
[2017-06-11] MEDS: CARVEDILOL 25 MG TAB PO SCH ×2 (07:56→20:03)
[2017-06-11] MEDS: ASPIRIN 81 MG ECTAB PO SCH (07:56)
[2017-06-11] MEDS: ISOSORBIDE MONONITRATE 60 MG TABCR PO SCH (07:56)
[2017-06-11] MEDS: FUROSEMIDE INJ 80 MG in SYRINGE 0 ML IV SCH (08:00)
--- NOTE | 2017-06-11 13:42 | Cardiology Follow-Up ---
Subjective Date of Service: Jun 11, 2017. Pt evaluation today including: conversation w/ patient, physical exam, chart review, lab review, review of studies, review of inpatient medication list History of Present Illness This morning the patient claims to be feeling well. He has not done much ambulation around the [place] but is able to get back and forth to the bathroom without significant dyspnea. Overall his increasing abdominal girth is much improved since admission. His thought his lower extremity edema was improved. His breathing is also improved. No dizziness or lightheadedness. No sense of palpitation. No symptoms of chest discomfort. Social History Smoking Status: Light Tobacco Smoker (cigars occasionally) History of Alcohol Use: No Review of Systems Cardiac: + chest pain (With exertion) Objective Vital Signs Past 12 Hours Date Time Temp Pulse Resp B/P (MAP) Pulse Ox O2 Delivery O2 Flow Rate FiO2 06/11/17 12:34 Room Air 06/11/17 11:25 36.6 63 20 91/56 (68) 94 Room Air 06/11/17 08:00 Room Air 06/11/17 07:26 36.4 61 20 127/80 (96) 95 Room Air 06/11/17 04:13 36.6 61 16 97/46 (63) 94 Room Air 06/11/17 04:00 94 Room Air Last Recorded Weight-Kilograms: 109.800 Physical Exam The patient is alert and oriented. Mood and affect appeared normal. He answered all questions appropriately. Obese HEENT: Pupils are equal and reactive to light and accommodation. Extraocular movements are intact. The sclerae are anicteric. Neuro: Cranial nerves intact Neck: Patient's neck is supple. He has palpable carotid pulses bilaterally without bruits on auscultation. There is no evidence of jugular venous distention. The thyroid is not enlarged. Lungs: Clear to auscultation bilaterally. He has good air movement without use of accessory muscles. No rales wheezes or rhonchi. Cardiac: Heart demonstrates a regular rate and rhythm. Normal S1 and S2. No murmurs on examination. Pulses: The patient has palpable radial pulses bilaterally that are equal in intensity Extremities: There was no evidence of hypoperfusion. There is no cyanosis or clubbing. There is no edema. Skin: I did not appreciate any rashes on examination today. Data Laboratory Results: Last 24 Hours Test 06/10/17 16:34 06/10/17 20:18 06/11/17 06:28 06/11/17 07:05 Bedside Glucose 152 mg/dl 137 mg/dl 118 mg/dl White Blood Count 6.07 K/uL Red Blood Count 4.61 M/uL Hemoglobin 13.6 g/dL Hematocrit 38.8 % Mean Corpuscular Volume 84.2 fL Mean Corpuscular Hemoglobin 29.5 pg Mean Corpuscular Hemoglobin Concent 35.1 g/dl Platelet Count 119 K/uL Mean Platelet Volume 10.1 fL Neutrophils (%) (Auto) 57.9 % Lymphocytes (%) (Auto) 29.7 % Monocytes (%) (Auto) 9.7 % Eosinophils (%) (Auto) 2.3 % Basophils (%) (Auto) 0.2 % Neutrophils # (Auto) 3.52 K/uL Lymphocytes # (Auto) 1.80 K/uL Monocytes # (Auto) 0.59 K/uL Eosinophils # (Auto) 0.14 K/uL Basophils # (Auto) 0.01 K/uL RDW Standard Deviation 39.6 fL RDW Coefficient of Variation 13.1 % Immature Granulocyte % (Auto) 0.2 % Immature Granulocyte # (Auto) 0.01 K/uL Sodium Level 134 mmol/L Potassium Level 4.6 mmol/L Chloride Level 102 mmol/L Carbon Dioxide Level 23 mmol/L Anion Gap 9.0 mmol/L Blood Urea Nitrogen 74 mg/dl Creatinine 3.59 mg/dl Est Creatinine Clear Calc Drug Dose 24.6 ml/min Estimated GFR () 20.1 Estimated GFR (Non- 17.4 BUN/Creatinine Ratio 20.6 Random Glucose 123 mg/dl Calcium Level 8.5 mg/dl Magnesium Level 2.3 mg/dl Test 06/11/17 11:44 Bedside Glucose 153 mg/dl Echocardiogram revealed preserved LV systolic function. Stage I diastolic dysfunction Assessment and Plan 1. Volume overload: The patient affected a good diuresis with intravenous diuretics. It is difficult to say that his breathing difficulty was secondary to pulmonary edema given the lack of objective findings. However symptomaticly is much improved. It seems his diuretic has been switched to an oral dose of bumetanide which is likely more appropriate given the poor response to furosemide leading up to his admission. His renal function continues to decline slightly. 2. Nonischemic cardiomyopathy: Patient with preserved LV systolic function current [place]. Stage I diastolic dysfunction. Continue current medical therapy 3. Nonobstructive coronary disease: Patient's symptoms of chest pressure have improved. I encouraged him to ambulate around the [place] to see if this is reproducible with exertion. In the absence of exertional symptoms, we will not pursue any additional testing. In fact, he is ambulatory and feeling well seems that he is getting close to discharge.
--- NOTE | 2017-06-11 15:51 | Nephrology Progress Note ---
Nephrology Progress Note Date of Service Jun 11, 2017. Chief Complaint Acute on chronic kidney injury Subjective Mr. Ceron was seen & examined in the PCU this am. He has had a good response to IV Furosemide therapy. His weight is down 3 kg and he reports that his LE edema has resolved. Review of Systems Constitutional: No fever Cardiovascular: No chest pain Abdomen: No pain, No nausea, No vomiting Extremities: No leg edema A complete review of systems was performed. Pertinent positives are noted above. All other systems are negative. Vital Signs Last 8 Hrs Date Time Temp Pulse Resp B/P (MAP) Pulse Ox O2 Delivery O2 Flow Rate FiO2 06/11/17 15:04 36.8 68 20 95/58 (70) 94 Room Air 06/11/17 14:11 98/60 (73) 06/11/17 12:34 Room Air 06/11/17 11:25 36.6 63 20 91/56 (68) 94 Room Air 06/11/17 08:00 Room Air I & O 24-Hour Column 06/12/17 07:59 Intake Total 260 ml Output Total 400 ml Balance -140 ml Last Recorded Weight Weight (Kilograms): 109.800 Physical Exam General Appearance: no apparent distress Head: normocephalic, atraumatic Eyes: PERRL, EOMI Neck: no adenopathy Respiratory/Chest: lungs clear Cardiovascular: regular rate, rhythm Abdomen/GI: normal bowel sounds, non tender, soft Extremities/Musculoskelatal: no calf tenderness, no pedal edema Neurologic/Psych: alert, oriented x 3 Family History Cancer Diabetes mellitus Lung disease Negative for CKD / ESRD Social History Smokeless Tobacco Use: No Drug Use: none Marital Status: 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 Remote tobacco use. Laboratory Results Past 24 Hours 06/11/17 07:05 Red Blood Count 4.61, Mean Corpuscular Volume 84.2, Mean Corpuscular Hemoglobin 29.5, Mean Corpuscular Hemoglobin Concent 35.1, Mean Platelet Volume 10.1, Neutrophils (%) (Auto) 57.9, Lymphocytes (%) (Auto) 29.7, Monocytes (%) (Auto) 9.7, Eosinophils (%) (Auto) 2.3, Basophils (%) (Auto) 0.2, Neutrophils # (Auto) 3.52, Lymphocytes # (Auto) 1.80, Monocytes # (Auto) 0.59, Eosinophils # (Auto) 0.14, Basophils # (Auto) 0.01 06/11/17 07:05 Test 06/10/17 16:34 06/10/17 20:18 06/11/17 06:28 06/11/17 07:05 Bedside Glucose 152 mg/dl (70-99) 137 mg/dl (70-99) 118 mg/dl (70-99) White Blood Count 6.07 K/uL (4.8-10.8) Red Blood Count 4.61 M/uL (4.7-6.1) Hemoglobin 13.6 g/dL (14.0-18.0) Hematocrit 38.8 % (42-52) Mean Corpuscular Volume 84.2 fL (80-100) Mean Corpuscular Hemoglobin 29.5 pg (25-34) Mean Corpuscular Hemoglobin Concent 35.1 g/dl (32-36) Platelet Count 119 K/uL (130-400) Mean Platelet Volume 10.1 fL (7.4-10.4) Neutrophils (%) (Auto) 57.9 % Lymphocytes (%) (Auto) 29.7 % Monocytes (%) (Auto) 9.7 % Eosinophils (%) (Auto) 2.3 % Basophils (%) (Auto) 0.2 % Neutrophils # (Auto) 3.52 K/uL (1.4-6.5) Lymphocytes # (Auto) 1.80 K/uL (1.2-3.4) Monocytes # (Auto) 0.59 K/uL (0.11-0.59) Eosinophils # (Auto) 0.14 K/uL (0-0.5) Basophils # (Auto) 0.01 K/uL (0-0.2) RDW Standard Deviation 39.6 fL (36.4-46.3) RDW Coefficient of Variation 13.1 % (11.5-14.5) Immature Granulocyte % (Auto) 0.2 % Immature Granulocyte # (Auto) 0.01 K/uL (0.00-0.02) Anion Gap 9.0 mmol/L (3-11) Est Creatinine Clear Calc Drug Dose 24.6 ml/min Estimated GFR () 20.1 Estimated GFR (Non- 17.4 BUN/Creatinine Ratio 20.6 (10-20) Calcium Level 8.5 mg/dl (8.5-10.1) Magnesium Level 2.3 mg/dl (1.8-2.4) Test 06/11/17 11:44 Bedside Glucose 153 mg/dl (70-99) Allergies Coded Allergies: No Known Allergies (Unverified , 06/09/17) Medications Current Inpatient Medications Medications (Trade) Dose Ordered Sig/Parveen Route Start Time Stop Time Status Last Admin Dose Admin Heparin Sodium (Porcine) (Heparin Sq 5000 Unit/0.5ml) 5,000 unit Q8 SQ 06/09/17 22:00 07/09/17 21:59 06/11/17 14:14 5,000 UNIT Acetaminophen (Tylenol Tab) 650 mg Q4H PRN PO 06/09/17 19:30 07/09/17 19:29 Al Hydrox/Mg Hydrox/Simethicone (Maalox Max Susp) 15 ml Q4H PRN PO 06/09/17 19:30 07/09/17 19:29 Magnesium Hydroxide (Milk Of Magnesia Susp) 30 ml Q12H PRN PO 06/09/17 19:30 07/09/17 19:29 Ondansetron HCl (Zofran Inj) 4 mg Q6H PRN IV 06/09/17 19:30 07/09/17 19:29 Morphine Sulfate (MoRPHine SULFATE INJ) 2 mg Q30M PRN IV 06/09/17 19:30 06/23/17 19:29 Polyethylene (Miralax Powder Packet) 17 gm DAILY PRN PO 06/09/17 19:30 07/09/17 19:29 06/11/17 06:32 17 GM Insulin Aspart (novoLOG ASPART) SLIDING SCALE G... ACHS SC 06/09/17 21:00 07/09/17 20:59 Aspirin (Ecotrin Tab) 81 mg DAILY PO 06/10/17 09:00 07/10/17 08:59 06/11/17 07:56 81 MG Carvedilol (Coreg Tab) 25 mg BID PO 06/09/17 21:00 07/09/17 20:59 06/11/17 07:56 25 MG Hydralazine HCl (Apresoline Tab) 25 mg TID PO 06/09/17 21:00 4/16/18 20:59 06/11/17 07:56 25 MG Insulin Glargine (Lantus Solostar Pen) 30 units QPM SC 06/09/17 21:00 07/09/17 20:59 06/10/17 20:48 30 UNITS Isosorbide Mononitrate (Imdur Ext Rel Tab) 60 mg QAM PO 06/10/17 09:00 07/10/17 08:59 06/11/17 07:56 60 MG Tramadol HCl (Ultram Tab) 50 mg Q4H PRN PO 06/09/17 19:30 07/09/17 19:29 06/10/17 22:11 50 MG Miscellaneous (Iv Fluids Completed) 1 ea PRN PRN N/A 06/09/17 20:00 06/09/18 19:59 Furosemide 80 mg/ Syringe 8 ml @ 4 mls/min BID@0800,1600 IV 06/10/17 16:00 07/10/17 15:59 Future Hold 06/10/17 17:21 4 MLS/MIN Bumetanide (Bumex Tab) 1 mg QAM PO 06/12/17 09:00 07/12/17 08:59 Impression (1) CHF exacerbation (2) Acute on chronic renal failure (3) Diabetes (4) Hypertension Recommendations ACUTE KIDNEY INJURY: -- 05/13 Renal US report reviewed today: No obstruction -- Urine sediment is acellular. UPCR is 0.1 -- Suspect congestive renal failure related to volume overload and systolic CHF -- Creatinine is now trending up. Will change from IV Furosemide to Bumex 1 mg po BID -- Hold Valsartan and Aldactone -- Monitor PRP CHRONIC KIDNEY DISEASE: -- Baseline creatinine 1.8 - 2.1 HYPERTENSION: -- BP is acceptable at this time -- Hold Valsartan and Aldactone CV: -- 03/10 Echocardiogram report reviewed today: LVEF 45 - 50% w/ grade I DD -- Will change from IV Furosemide to Bumex 1 mg po BID -- Dietitian has been consulted to provide education on 1500 mg / day NaCl restricted diet
--- NOTE | 2017-06-11 18:49 | Hospitalist Progress Note ---
Hospitalist Progress Note Date of Service Jun 11, 2017. Subjective Pt evaluation today including: conversation w/ patient Patient feeling better today, less short of breath, he has not yet ambulated the halls as cardiology wanted him to, but he is not having any chest pain with exertion walking to the bathroom. He is very disappointed that his kidney function is worse. Telemetry with normal sinus rhythm in the 60s-70s All Other Systems: Reviewed and Negative Objective Vital Signs Date Time Temp Pulse Resp B/P (MAP) Pulse Ox O2 Delivery O2 Flow Rate FiO2 06/11/17 16:14 Room Air 06/11/17 15:04 36.8 68 20 95/58 (70) 94 Room Air 06/11/17 14:11 98/60 (73) 06/11/17 12:34 Room Air 06/11/17 11:25 36.6 63 20 91/56 (68) 94 Room Air 06/11/17 08:00 Room Air 06/11/17 07:26 36.4 61 20 127/80 (96) 95 Room Air 06/11/17 04:13 36.6 61 16 97/46 (63) 94 Room Air 06/11/17 04:00 94 Room Air 06/11/17 00:00 97 Room Air 06/10/17 23:31 36.9 68 18 112/69 (83) 97 Room Air 06/10/17 20:00 94 Room Air 06/10/17 19:10 36.8 75 18 113/69 (84) 94 Room Air Physical Exam General Appearance: WD/WN, no apparent distress, + obese Eyes: normal inspection, sclerae normal ENT: hearing grossly normal, pharynx normal Neck: trachea midline Respiratory/Chest: lungs clear, normal breath sounds, no respiratory distress, no accessory muscle use Cardiovascular: regular rate, rhythm, no edema, no murmur Abdomen: normal bowel sounds, non tender, soft Extremities: non-tender, normal inspection, no pedal edema, no calf tenderness Neurologic/Psychiatric: alert, normal mood/affect, oriented x 3 Skin: normal color, warm/dry, no rash Laboratory Results Last 24 Hours Test 06/10/17 20:18 06/11/17 06:28 06/11/17 07:05 06/11/17 11:44 Bedside Glucose 137 mg/dl 118 mg/dl 153 mg/dl White Blood Count 6.07 K/uL Red Blood Count 4.61 M/uL Hemoglobin 13.6 g/dL Hematocrit 38.8 % Mean Corpuscular Volume 84.2 fL Mean Corpuscular Hemoglobin 29.5 pg Mean Corpuscular Hemoglobin Concent 35.1 g/dl Platelet Count 119 K/uL Mean Platelet Volume 10.1 fL Neutrophils (%) (Auto) 57.9 % Lymphocytes (%) (Auto) 29.7 % Monocytes (%) (Auto) 9.7 % Eosinophils (%) (Auto) 2.3 % Basophils (%) (Auto) 0.2 % Neutrophils # (Auto) 3.52 K/uL Lymphocytes # (Auto) 1.80 K/uL Monocytes # (Auto) 0.59 K/uL Eosinophils # (Auto) 0.14 K/uL Basophils # (Auto) 0.01 K/uL RDW Standard Deviation 39.6 fL RDW Coefficient of Variation 13.1 % Immature Granulocyte % (Auto) 0.2 % Immature Granulocyte # (Auto) 0.01 K/uL Sodium Level 134 mmol/L Potassium Level 4.6 mmol/L Chloride Level 102 mmol/L Carbon Dioxide Level 23 mmol/L Anion Gap 9.0 mmol/L Blood Urea Nitrogen 74 mg/dl Creatinine 3.59 mg/dl Est Creatinine Clear Calc Drug Dose 24.6 ml/min Estimated GFR () 20.1 Estimated GFR (Non- 17.4 BUN/Creatinine Ratio 20.6 Random Glucose 123 mg/dl Calcium Level 8.5 mg/dl Magnesium Level 2.3 mg/dl Test 06/11/17 16:16 Bedside Glucose 119 mg/dl Assessment and Plan This patient is a 62 y/o M Hx chronic combined and diastolic CHF with last known EF 50%, nonischemic cardiomyopathy with cardiac cath 2014 with 45% blockage in single-vessel, HPL, HTN, DMII, nonobstructive CAD, thrombocytopenia , obese, MARISA not currently on CPAP, alpha-1 antitrypsin deficiency, fatty liver. The pt presents with progressive SOB over the course of the week which is exacerbated with exertion. He has had some weight gain of about 20 pounds over the last 1 month or so states that his abdomen feels distended which he states is where he ends to accumulate fluid. He denies a productive cough, n/v or fevers. He had had doubled his Lasix dose from 40mg to 80mg several 3 days in a row the last month without decrease in weight. Initial labs are notable for worsening renal function, mild hyperkalemia. A proBNP was normal and his chest x-ray showed moderate cardiomegaly but no CHF otherwise. 1) SOB/Chronic combined systolic and diastolic CHF/H/o nonischemic CM - largely exertional, with weight gain. Could be secondary to worsening acute renal failure in setting of CKD stage III and cardiorenal syndrome versus acute on chronic diastolic CHF although with normal proBNP, seems very unlikely. Echocardiogram here with grade 1 diastolic dysfunction, no wall motion abnormalities, EF 55% Continues to be symptomatically improved today with continued diuresis with IV Lasix 80 mg twice daily Creatinine continues to rise -Discontinue IV Lasix and nephrology ordered Bumex 1 mg p.o. daily starting tomorrow -continue to trend his weight, I/O -continue Coreg -Continue to hold ARB and aldactone due to ARF 2) Acute kidney injury in setting of CKD stage III / mild hyperkalemia - worsening renal function today with creatinine increased to 3.56 likely secondary to IV diuresis, potassium remains normal. Microvascular disease with DM, HTN, and cardiorenal syndrome as per outpt Nephrology notes. Freight Tallier 3.03 on admission, baseline usually around 2.1 -Hold IV Lasix and starting Bumex as above in the morning -continue to trend PRP -Consult Nephrology appreciated - ARB is held both due to ARF and HyperK -avoid nephrotoxins -renally dose meds -Nephrology has discussed possibility of needing an AV fistula formed in the near future -Discussed low sodium and low protein renal diet, weight loss, good control of his diabetes which he is doing, and blood pressure control 3) DM II - HgbA1C here excellent at 6.6% -home glipizide on hold while here -placed on SSI -accuchecks -ADA diet 4) HTN - controlled and actually low normal but asymptomatic -will cont Hydralazine, Isosorbide, Coreg - Losartan held 5) CAD - nonocclusive as of 2014 - no evidence of ACS but does describe what may be stable angina. This could also be chest tightness from previous volume overload -Encouraged to ambulate today to see if chest tightness recurs now that he has diuresed - cont ASA -He is apparently statin-intolerant -has myalgias with Lipitor in the past -need to review other statins he has been on in the past-he cannot recall -consider pravastatin -continue isosorbide -consider noninvasive stress testing once dyspnea improved if chest tightness with exertion continues 6) MARISA - no longer on CPAP at home due to insurance only covering half the cost -needs assistance as outpt to get CPAP again due to financial reasons 7) Morbid obesity/Fatty liver/Alpha-1 AT def - discussed diet and exercise for weight loss, LFTs normal -follow as outpt 8) Thrombocytopenia - unchanged from baseline Full code - Heparin prophylaxis Dispo-remain on tele, continued stay due to worsening renal function
[2017-06-11] MEDS: INSULIN GLARGINE SOLOSTAR 100 UNITS/ML 3 ML PEN SC SCH (20:04)
[2017-06-11] MEDS: TRAMADOL HCL 50 MG TAB PO PRN (20:45)
[2017-06-12 00:10] VITALS: BP 150/77; PULSE 69; TEMP 37; O2SAT 94
[2017-06-12 04:05] VITALS: BP 112/64; PULSE 70; TEMP 36.9; O2SAT 97
[2017-06-12] MEDS: HEPARIN SOD 5000 UNIT/0.5 ML CARP SQ SCH (05:24)
[2017-06-12 06:47] LABS: HEMATOCRIT 34.5 % (42-52); HEMOGLOBIN 12.4 g/dL (14.0-18.0); MEAN CELL VOLUME 82.1 fL (80-100); MEAN CORPUSCULAR HEMOGLOBIN 29.5 pg (25-34); MEAN CORPUSCULAR HGB CONC 35.9 g/dl (32-36); MEAN PLATELET VOLUME 8.9 fL (7.4-10.4); PLATELET COUNT 103 K/uL (130-400); RED CELL DISTRIBUTION WIDTH CV 12.9 % (11.5-14.5); RED CELL DISTRIBUTION WIDTH SD 38.1 fL (36.4-46.3); WHITE BLOOD COUNT 4.94 K/uL (4.8-10.8)
[2017-06-12] MEDS: INSULIN ASPART 100 UNITS/ML 3 ML PEN SC SCH ×2 (07:00→11:00)
[2017-06-12 07:25] LABS: CALCIUM 8.3 mg/dl (8.5-10.1); POTASSIUM 4.2 mmol/L (3.5-5.1)
[2017-06-12 07:54] VITALS: BP 124/74; PULSE 61; TEMP 36.4; O2SAT 95
[2017-06-12] MEDS: CARVEDILOL 25 MG TAB PO SCH (08:09)
[2017-06-12] MEDS ORDERED: BUMETANIDE 1 MG TAB PO SCH (09:00)
--- NOTE | 2017-06-12 09:20 | Nephrology Progress Note ---
Nephrology Progress Note Date of Service Jun 12, 2017. Chief Complaint Acute on chronic kidney injury Subjective Mr. Ceron was seen & examined in the PCU this morning. He reports good response to oral Bumex. His peripheral edema has resolved. He is anxious to return home. Review of Systems Constitutional: No fever Cardiovascular: No chest pain Respiratory: No dyspnea at rest Abdomen: No pain, No nausea, No vomiting Extremities: No leg edema A complete review of systems was performed. Pertinent positives are noted above. All other systems are negative. Vital Signs Last 8 Hrs Date Time Temp Pulse Resp B/P (MAP) Pulse Ox O2 Delivery O2 Flow Rate FiO2 06/12/17 07:54 36.4 61 20 124/74 (91) 95 Room Air 06/12/17 04:05 36.9 70 16 112/64 (80) 97 Room Air 06/12/17 04:00 Room Air Last Recorded Weight Weight (Kilograms): 110.100 Physical Exam General Appearance: no apparent distress Head: normocephalic, atraumatic Eyes: PERRL, EOMI Neck: no adenopathy Respiratory/Chest: lungs clear, no respiratory distress Cardiovascular: regular rate, rhythm Abdomen/GI: normal bowel sounds, non tender, soft Extremities/Musculoskelatal: no calf tenderness, no pedal edema Neurologic/Psych: alert, oriented x 3 Family History Cancer Diabetes mellitus Lung disease Negative for CKD / ESRD Social History Smokeless Tobacco Use: No Drug Use: none Marital Status: 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 Remote tobacco use. Laboratory Results Past 24 Hours 06/12/17 06:34 06/12/17 06:34 Test 06/11/17 11:44 06/11/17 16:16 06/11/17 20:01 06/12/17 06:34 Bedside Glucose 153 mg/dl (70-99) 119 mg/dl (70-99) 172 mg/dl (70-99) Red Blood Count 4.20 M/uL (4.7-6.1) Mean Corpuscular Volume 82.1 fL (80-100) Mean Corpuscular Hemoglobin 29.5 pg (25-34) Mean Corpuscular Hemoglobin Concent 35.9 g/dl (32-36) RDW Standard Deviation 38.1 fL (36.4-46.3) RDW Coefficient of Variation 12.9 % (11.5-14.5) Mean Platelet Volume 8.9 fL (7.4-10.4) Anion Gap 10.0 mmol/L (3-11) Est Creatinine Clear Calc Drug Dose 29.5 ml/min Estimated GFR () 25.0 Estimated GFR (Non- 21.6 BUN/Creatinine Ratio 24.7 (10-20) Calcium Level 8.3 mg/dl (8.5-10.1) Test 06/12/17 06:38 Bedside Glucose 98 mg/dl (70-99) Allergies Coded Allergies: No Known Allergies (Unverified , 06/09/17) Medications Current Inpatient Medications Medications (Trade) Dose Ordered Sig/Parveen Route Start Time Stop Time Status Last Admin Dose Admin Heparin Sodium (Porcine) (Heparin Sq 5000 Unit/0.5ml) 5,000 unit Q8 SQ 06/09/17 22:00 07/09/17 21:59 06/12/17 05:24 5,000 UNIT Acetaminophen (Tylenol Tab) 650 mg Q4H PRN PO 06/09/17 19:30 07/09/17 19:29 Al Hydrox/Mg Hydrox/Simethicone (Maalox Max Susp) 15 ml Q4H PRN PO 06/09/17 19:30 07/09/17 19:29 Magnesium Hydroxide (Milk Of Magnesia Susp) 30 ml Q12H PRN PO 06/09/17 19:30 07/09/17 19:29 Ondansetron HCl (Zofran Inj) 4 mg Q6H PRN IV 06/09/17 19:30 07/09/17 19:29 Morphine Sulfate (MoRPHine SULFATE INJ) 2 mg Q30M PRN IV 06/09/17 19:30 06/23/17 19:29 Polyethylene (Miralax Powder Packet) 17 gm DAILY PRN PO 06/09/17 19:30 07/09/17 19:29 06/11/17 06:32 17 GM Insulin Aspart (novoLOG ASPART) SLIDING SCALE G... ACHS SC 06/09/17 21:00 07/09/17 20:59 06/11/17 20:41 1 UNITS Aspirin (Ecotrin Tab) 81 mg DAILY PO 06/10/17 09:00 07/10/17 08:59 06/11/17 07:56 81 MG Carvedilol (Coreg Tab) 25 mg BID PO 06/09/17 21:00 07/09/17 20:59 06/12/17 08:09 25 MG Hydralazine HCl (Apresoline Tab) 25 mg TID PO 06/09/17 21:00 07/09/17 20:59 06/12/17 08:09 25 MG Insulin Glargine (Lantus Solostar Pen) 30 units QPM SC 06/09/17 21:00 07/09/17 20:59 06/11/17 20:04 30 UNITS Isosorbide Mononitrate (Imdur Ext Rel Tab) 60 mg QAM PO 06/10/17 09:00 07/10/17 08:59 06/11/17 07:56 60 MG Tramadol HCl (Ultram Tab) 50 mg Q4H PRN PO 06/09/17 19:30 07/09/17 19:29 06/11/17 20:45 50 MG Miscellaneous (Iv Fluids Completed) 1 ea PRN PRN N/A 06/09/17 20:00 06/09/18 19:59 Bumetanide (Bumex Tab) 1 mg QAM PO 06/12/17 09:00 07/12/17 08:59 06/12/17 08:09 1 MG Impression (1) CHF exacerbation (2) Acute on chronic renal failure (3) Diabetes (4) Hypertension Recommendations ACUTE KIDNEY INJURY: -- 05/13 Renal US report: No obstruction -- Urine sediment is acellular. UPCR is 0.1 -- Suspect congestive renal failure related to volume overload and systolic CHF -- Creatinine has stabilized at 3.0 CHRONIC KIDNEY DISEASE: -- Baseline creatinine 1.8 - 2.1 HYPERTENSION: -- BP is acceptable at this time -- Continue to hold Valsartan and Aldactone CV: -- 03/10 Echocardiogram report: LVEF 45 - 50% w/ grade I DD -- Continue Bumex 1 mg po BID -- Dietitian has been consulted to provide education on 1500 mg / day NaCl restricted diet OTHER: -- Will ask my office staff to contact patient to schedule Nephrology follow up office visit in 7 - 10 days -- Order placed in [facility] EMR to have blood work completed 24 hours prior to Nephrology OV
[2017-06-12] MEDS: ASPIRIN 81 MG ECTAB PO SCH (09:22)
[2017-06-12] MEDS: ISOSORBIDE MONONITRATE 60 MG TABCR PO SCH (09:23)
[2017-06-12 12:16] VITALS: BP 129/70; PULSE 61; TEMP 36.3; O2SAT 95
[2017-06-12] MEDS ORDERED: BMX1 PO (13:42)
[2017-06-12 13:44] VITALS: BP 129/70; PULSE 61; TEMP 36.3; O2SAT 95
--- NOTE | 2017-06-12 13:47 | Discharge Instructions ---
Discharge Instructions Date of Service Jun 12, 2017. Admission Reason for Admission: Acute kidney injury, fluid overload, Suspected CHF Exacerbation Discharge Discharge Diagnosis / Problem: STEVEN, fluid overload Discharge Goals Goal(s): Improve disease control, Diagnostic testing, Therapeutic intervention Activity Recommendations Activity Limitations: as noted below Exercise/Sports Limitations: gradually increase as tolerated Shower/Bathe: no limitations . Instructions / Follow-Up Instructions / Follow-Up You were admitted with an overload of fluid related to your worsening renal failure. You were given diuretics through the IV and then switched to oral BUMEX to replace your lasix. This seems to be working better for you. DO NOT TAKE your ALDACTONE and VALSARTAN until advised to restart by Dr. Gasca. Please follow up with your PCP within 1-2 weeks, Nephrology as scheduled in 2 weeks, and Cardiology as scheduled for you. Please have your blood work checked in 1 week-Dr. Yu ordered this for you in the computer. Call your Primary Care doctor if any of the following symptoms or problems start or get worse: * Shortness of breath or difficulty breathing * Wake up at night short of breath * Chest pain * Cough * Swelling of your hands, feet, or legs * More fatigued or tired with your normal activity * Palpitations - sudden fast heart beats WEIGHT * Weigh yourself every morning after using the bathroom. * Use the same scale. * Wear the same amount of clothing. * Write your weight down on a chart. * Call your Primary Care doctor if you gain more than 2-3 pounds in 1-2 days. MEDICATIONS * Use this discharge instruction sheet for medication instructions. * Take your medications at the time your doctor ordered. * Do not skip a dose of your medicines. * If you miss a dose of medicine, take it as soon as possible, but DO NOT DOUBLE A DOSE. * Read your medicine information when you get home. * Know all of the side effects of your medicine. If in doubt, ask your pharmacist * Call your Primary Care doctor's office if you have any side effects. * Be sure all of your doctors know what medicine and herbs you take (including cold, flu, and herbal medicine). Take the following with you to your follow-up doctor appointments: * Weight Chart * Medication List * List of questions Do not drink excessive alcohol, beer or wine. Current Hospital Diet Patient's current hospital diet: AHA Diet (Heart Healthy), Diabetes Type 2 Diet Discharge Diet Recommended Diet: Low Sodium Diet (2gm Na), Diabetes Type 2 Diet, Renal Diet Procedures Procedures Performed: Chest xray Echocardiogram Pending Studies Studies pending at discharge: no Laboratory Results Last 24 Hours Test 06/11/17 16:16 06/11/17 20:01 06/12/17 06:34 06/12/17 06:38 Bedside Glucose 119 mg/dl 172 mg/dl 98 mg/dl White Blood Count 4.94 K/uL Red Blood Count 4.20 M/uL Hemoglobin 12.4 g/dL Hematocrit 34.5 % Mean Corpuscular Volume 82.1 fL Mean Corpuscular Hemoglobin 29.5 pg Mean Corpuscular Hemoglobin Concent 35.9 g/dl RDW Standard Deviation 38.1 fL RDW Coefficient of Variation 12.9 % Platelet Count 103 K/uL Mean Platelet Volume 8.9 fL Sodium Level 135 mmol/L Potassium Level 4.2 mmol/L Chloride Level 106 mmol/L Carbon Dioxide Level 19 mmol/L Anion Gap 10.0 mmol/L Blood Urea Nitrogen 74 mg/dl Creatinine 3.00 mg/dl Est Creatinine Clear Calc Drug Dose 29.5 ml/min Estimated GFR () 25.0 Estimated GFR (Non- 21.6 BUN/Creatinine Ratio 24.7 Random Glucose 91 mg/dl Calcium Level 8.3 mg/dl Hemoglobin A1c Test 06/10/17 06:19 Range/Units Estimated Average Glucose 143 mg/dl Hemoglobin A1c 6.6 H 4.5-5.6 % Medical Emergencies . Who to Call and When: Call 911 or go to the Emergency Room if: * If at any time you feel your situation is an emergency * You have tightness or pain in your chest that does not go away with rest or Nitroglycerin * You are very short of breath even with rest . Non-Emergent Contact Non-Emergency issues call your: Primary Care Provider, Literary Writer, Senior Solutions Architect Call Non-Emergent contact if: temperature is above 100.5, you have any medication questions you have increased weight gain, shortness of breath, or for any other concerns. . . "Provider Documentation" section prepared by Wilma Loving. .
--- NOTE | 2017-06-12 13:55 | Discharge Summary ---
Discharge Summary Date of Service Jun 12, 2017. Discharge Summary Admission Date: Jun 10, 2017 at 12:44 Discharge Date: Jun 12, 2017 Discharge Disposition: Home Principal Diagnosis: STEVEN, hypervolemia secondary to renal failure Problems/Secondary Diagnoses: Acute kidney injury in setting of CKD stage III Hyperkalemia chronic combined systolic and diastolic CHF nonischemic cardiomyopathy with cardiac cath 2014 with 45% blockage in single- vessel HPL HTN DMII nonobstructive CAD thrombocytopenia obesity, BMI 41 MARISA not currently on CPAP alpha-1 antitrypsin deficiency fatty liver cardiorenal syndrome Procedures: CXR ECHO Consultations: Cardiology Nephrology Medication Reconciliation New Medications: Bumetanide (Bumetanide) 1 Mg Tab 1 MG PO QAM for 30 Days, #30 TAB Continued Medications: Aspirin (Aspirin Ec) 81 Mg Tab 81 MG PO DAILY Carvedilol (Coreg) 25 Mg Tab 25 MG PO BID, TAB Cholecalciferol (Vitamin D3) 50,000 Unit Tab 44012 UNITS WK TAKES ON SUNDAYS. Glipizide (Glipizide ER) 10 Mg Tabcr 10 MG PO BID Hydralazine Hcl (Apresoline) 25 Mg Tab 25 MG PO TID, TAB Insulin Glargine (Lantus) 100 Unit/Ml Inj 30 UNITS SC QPM, VIAL Isosorbide Mononitrate Ext Rel (Imdur Ext Rel) 60 Mg Ertab 60 MG PO QAM, TAB Tramadol (Ultram) 50 Mg Tab 50 MG PO Q4H PRN for Pain Discontinued Medications: Atorvastatin (Lipitor) 40 Mg Tab 40 MG PO QPM ON HOLD DUE TO MUSCLE ACHES PER MD. Furosemide (Lasix) 40 Mg Tab 40 MG PO QAM MAY INCREASE TO 80MG X3 DAYS IF NEEDED Spironolactone (Aldactone) 25 Mg Tab 25 MG PO QAM Valsartan (Diovan) 160 Mg Tab 160 MG PO QAM Discharge Exam Pt feeling very well. No SOB, no GUTIERREZ, no chest tightness with ambulation around the halls, no leg swelling, no more abdominal bloating/distension. He is urinating quite a bit since starting the po Bumex today. Calibration Technician is down today to 3.00. Physical Exam General Appearance: WD/WN, no apparent distress, + obese Eyes: normal inspection, sclerae normal ENT: hearing grossly normal, pharynx normal Neck: trachea midline Respiratory/Chest: lungs clear, normal breath sounds, no respiratory distress, no accessory muscle use Cardiovascular: regular rate, rhythm, no edema, no murmur Abdomen: normal bowel sounds, non tender, soft Extremities: non-tender, normal inspection, no pedal edema, no calf tenderness Neurologic/Psychiatric: alert, normal mood/affect, oriented x 3 Skin: normal color, warm/dry, no rash Review of Systems: Constitutional: No problem reported Eyes: No problem reported ENT: No problem reported Respiratory: No problem reported Cardiovascular: No problem reported Abdomen: No problem reported Musculoskeletal: + problem reported (chronic left hip pain) Genitourinary - Male: No problem reported Neurologic: No problem reported Psychiatric: No problem reported Endocrine: No problem reported Hematologic / Lymphatic: No problem reported Integumentary: No problem reported Hospital Course This patient is a 62 y/o M Hx chronic combined systolic and diastolic CHF with last known EF 50%, nonischemic cardiomyopathy with cardiac cath 2014 with 45% blockage in single-vessel, HPL, HTN, DMII, nonobstructive CAD, thrombocytopenia , obese, MARISA not currently on CPAP, alpha-1 antitrypsin deficiency, fatty liver. The pt presents with progressive SOB over the course of the week which is exacerbated with exertion. He has had some weight gain of about 20 pounds over the last 1 month or so states that his abdomen feels distended which he states is where he ends to accumulate fluid. He denies a productive cough, n/v or fevers. He had had doubled his Lasix dose from 40mg to 80mg several 3 days in a row the last month without decrease in weight. Initial labs are notable for worsening renal function, mild hyperkalemia. A proBNP was normal and his chest x-ray showed moderate cardiomegaly but no CHF otherwise. 1) SOB/Chronic combined systolic and diastolic CHF/H/o nonischemic CM - largely exertional, with weight gain. Most likely symptoms were secondary to worsening acute renal failure in setting of CKD stage III and cardiorenal syndrome. Not likely acute CHF with normal proBNP. Echocardiogram here with grade 1 diastolic dysfunction, no wall motion abnormalities, EF 55% which is improved from previous Continues to be symptomatically improved with continued diuresis with IV Lasix 80 mg twice daily and then switched to po Bumex Creatinine trended downward to 3.0 on day of discharge and Nephrology thought safe to discharge home -discharge to home on Bumex po -continue to trend his weight at home, low Na+ diet -continue Coreg -Continue to hold/dc ARB and aldactone due to ARF 2) Acute kidney injury in setting of CKD stage III / mild hyperkalemia - creatinine peaked at 3.56 likely secondary to IV diuresis, potassium remains normal bu was elevated upon admission. Cause of renal failure is microvascular disease with DM, HTN, and cardiorenal syndrome as per outpt Nephrology notes. Calibration Technician 3.03 on admission, baseline usually around 2.1 Creatinine imporved to 3.0 on day of discharge -Consult Nephrology appreciated - ARB is held both due to ARF and HyperK -avoid nephrotoxins -renally dose meds -Nephrology has discussed possibility of needing an AV fistula formed in the near future-f/u as outpatient with Nephrology -Discussed low sodium and low protein renal diet, weight loss, good control of his diabetes which he is doing, and blood pressure control 3) DM II - HgbA1C here excellent at 6.6% -home glipizide on hold while here and can restart on discharge -placed on SSI -accuchecks -ADA diet 4) HTN - controlled and actually low normal but asymptomatic -will cont Hydralazine, Isosorbide, Coreg - Losartan and aldactone discontinued for now 5) CAD - nonocclusive as of 2014 - no evidence of ACS but does describe what may be stable angina. This was likely chest tightness from previous volume overload-now resolved after diuresis-was able to ambulate several laps around nurses station without any symptoms prior to discharge - cont ASA -He is apparently statin-intolerant -has myalgias with Lipitor in the past -need to review other statins he has been on in the past-he cannot recall -consider pravastatin as outpt-will defer to PCP -continue isosorbide 6) MARISA - no longer on CPAP at home due to insurance only covering half the cost -needs assistance as outpt to get CPAP again due to financial reasons-defer to PCP/Pulm 7) Morbid obesity/Fatty liver/Alpha-1 AT def - discussed diet and exercise for weight loss, LFTs normal -follow as outpt 8) Thrombocytopenia - unchanged from baseline Stable for discharge to home Total Time Spent: Greater than 30 minutes This includes examination of the patient, discharge planning, medication reconciliation, and communication with other providers. Discharge Instructions Please refer to the electronic Patient Visit Report (Discharge Instructions) for additional information. Follow-Up PCP in 1-2 weeks Nephrology in 10 days Cardiology within 1-2 weeks Check BMP in 1 week Additional Copies To Narciso Loo M.D.; Heraclio Gasca D.O.; Tessie Ruiz, KAYLAC
--- NOTE | 2017-06-13 06:57 | EDITING REQUIRED CODING QUERY ---
CONGESTIVE HEART FAILURE To Promote full compliance with coding requirements relating to patient care, physician participation is requested in all cases of felt hanger uncertainty. Please assist us with the following questions. A diagnosis of Congestive Heart Failure is documented in the patient's medical record. To accurately code this diagnosis and to compare patient severity, we ask that you specify the type of heart failure by placing an X within the parenthesis (x). SYSTOLIC HEART FAILURE ( ) Acute ( ) Chronic ( ) Acute on Chronic ( ) Rheumatic ( ) Unknown DIASTOLIC HEART FAILURE ( ) Acute ( ) Chronic ( ) Acute on Chronic ( ) Rheumatic ( ) Unknown COMBINED SYSTOLIC AND DIASTOLIC HEART FAILURE ( ) Acute (x ) Chronic ( ) Acute on Chronic ( ) Rheumatic ( ) Unknown Was the CHF Present On Admission? Please check the appropriate box: ( ) Present on Admission ( ) Not Present On Admission ( ) Clinically undetermined Thank you Stacey Ernst
[2017-06-16] MEDS ORDERED: FENO145T26 PO (13:37)
== END 2017-06-12 14:15 | disposition home or self-care (01) | DRG 292 ==
LOC: C.EDB 16:47 → C.2T 19:27 → ENRESERV 19:39 → OBSVTOIN 06-10 12:44
PROVIDERS: ADMIT Internal Medicine; ATTEND Family Medicine
DX: I13.0 Hypertensive heart and chronic kidney disease with heart failure and stage 1 through stage 4 chronic kidney disease, or unspecified chronic kidney disease (principal); N17.9 Acute kidney failure, unspecified; I50.42 Chronic combined systolic (congestive) and diastolic (congestive) heart failure; Z68.41 Body mass index [BMI] 40.0-44.9, adult; I42.9 Cardiomyopathy, unspecified; E87.5 Hyperkalemia; E11.22 Type 2 diabetes mellitus with diabetic chronic kidney disease; E11.21 Type 2 diabetes mellitus with diabetic nephropathy; N18.3 Chronic kidney disease, stage 3 (moderate); E78.5 Hyperlipidemia, unspecified; I25.10 Atherosclerotic heart disease of native coronary artery without angina pectoris; G47.33 Obstructive sleep apnea (adult) (pediatric); K76.0 Fatty (change of) liver, not elsewhere classified; E66.01 Morbid (severe) obesity due to excess calories; F17.210 Nicotine dependence, cigarettes, uncomplicated; Z51.81 Encounter for therapeutic drug level monitoring; Z79.899 Other long term (current) drug therapy; Z79.82 Long term (current) use of aspirin; Z79.4 Long term (current) use of insulin; Z83.3 Family history of diabetes mellitus

== ENCOUNTER 2017-06-15 04:07 | Emergency (ER) | payer OTHER ==
[~2017-06-15] VITALS: Ht 162.6 cm; Wt 110.1 kg
[~2017-06-15 04:07] MED LIST changes: -APR25 PO; -ASPI81TA28 PO; -ATOR-24 PO; +BMX1 PO; -CARV25TA2 PO; -CHOL20005 PO; -DULA1INJ SC; -DVN/160 PO; -FRS/40 PO; -GLCSR10 PO; -ISOS60TA25 PO; -SPIR25TA PO
[2017-06-15] MEDS ORDERED: PANTOprazole INJ 40 MG in SYRINGE 0 ML IV ONE (04:30)
[2017-06-15 04:39] LABS: BASO % 0.2 %; BASO ABS # 0.01 K/uL (0-0.2); EOS % 2.4 %; EOS ABS # 0.13 K/uL (0-0.5); HEMATOCRIT 34.1 % (42-52); HEMOGLOBIN 12.3 g/dL (14.0-18.0); IG# 0.02 K/uL (0.00-0.02); LYMPH % 20.4 %; LYMPH ABS # 1.11 K/uL (1.2-3.4); MEAN CELL VOLUME 82.4 fL (80-100); MEAN CORPUSCULAR HEMOGLOBIN 29.7 pg (25-34); MEAN CORPUSCULAR HGB CONC 36.1 g/dl (32-36); MEAN PLATELET VOLUME 10.1 fL (7.4-10.4); MONO % 10.6 %; MONO ABS # 0.58 K/uL (0.11-0.59); PLATELET COUNT 110 K/uL (130-400); RED CELL DISTRIBUTION WIDTH CV 12.9 % (11.5-14.5); RED CELL DISTRIBUTION WIDTH SD 38.7 fL (36.4-46.3); WHITE BLOOD COUNT 5.45 K/uL (4.8-10.8)
--- NOTE | 2017-06-15 04:41 | EMERGENCY ROOM VISIT NOTE ---
History Report prepared by Jasmine: Nevaeh Suarez Under the Supervision of: Dr. Julia Carter D.O. First contact with patient: 04:08 Stated Complaint: CHEST PAIN History of Present Illness The patient is a 62 year old male who presents to the Emergency Room with complaints of waxing and waning chest pain starting last night. He presents to the ED by EMS. He was given aspirin and nitro in route. The patient was discharged from the hospital 3 days ago after admitted for CHF. The patient had a dinner of fried fish yesterday. When he went to bed later, he started having some RUQ abdominal pain which went up into his chest. He describes the pain as cramping and thought that it might be heartburn. The pain then spread into his left shoulder and into the central back. He tried taking Carafate to some relief. He also tried taking nitro to no significant relief. He was SOB with the pain. He reports constipation over the past several days. He has been feeling tired and achy since being discharged home. He has not gained any weight since discharge. He did not have this type of pain with his previous admission. He still has his gallbladder. He has a family history of gallbladder disease. He was taken off valsartan and switched from Lasix to Bumex recently. He denies any fever. Source of History: patient Onset: last night Position: chest Quality: cramping Timing: waxes/wanes Modifying Factors (Relieving): other (carafate, nitro) Associated Symptoms: + SOB, + abdominal pain, + back pain, + fatigue, No fevers Note: Pt reports constipation. Review of Systems See HPI for pertinent positives & negatives. A total of 10 systems reviewed and were otherwise negative. Past Medical & Surgical Medical Problems: (1) Acute on chronic renal failure (2) Acute renal failure (3) CHF (congestive heart failure) (4) CHF exacerbation (5) Diabetes (6) Dyspnea (7) Fatty liver (8) HTN (hypertension) (9) Hypertension (10) Kidney failure Surgical Problems: (1) H/O cervical spine surgery (2) S/P wrist surgery Family History Cancer Diabetes mellitus Lung disease Social History Smoking Status: Light Tobacco Smoker Alcohol Use: none Drug Use: none Marital Status: Housing Status: lives with significant other Occupation Status: disabled Current/Historical Medications Scheduled Aspirin (Aspirin Ec), 81 MG PO DAILY Bumetanide (Bumex), 1 MG PO QAM Carvedilol (Coreg), 25 MG PO BID Cholecalciferol (Vitamin D3), 50,000 UNITS WK Glipizide (Glipizide ER), 10 MG PO BID Hydralazine Hcl (Apresoline), 25 MG PO TID Insulin Glargine (Lantus), 30 UNITS SQ QPM Isosorbide Mononitrate Ext Rel (Imdur Ext Rel), 60 MG PO QAM Scheduled PRN Tramadol (Ultram), 50 MG PO Q4H PRN for Pain Allergies Coded Allergies: No Known Allergies (Unverified , 06/09/17) Physical Exam Vital Signs Date Time Temp Pulse Resp B/P (MAP) Pulse Ox O2 Delivery O2 Flow Rate FiO2 06/15/17 06:51 67 06/15/17 06:31 142/72 06/15/17 06:17 70 18 96 06/15/17 06:01 142/69 06/15/17 05:47 66 17 98 06/15/17 05:42 65 14 98 Room Air 06/15/17 05:31 132/61 06/15/17 05:25 141/66 06/15/17 04:42 64 13 98 06/15/17 04:37 66 16 98 06/15/17 04:32 72 06/15/17 04:22 71 19 96 Room Air 06/15/17 04:12 98 Room Air 06/15/17 04:12 97 Room Air 06/15/17 04:12 36.8 71 21 127/71 98 Room Air 06/15/17 04:11 127/71 Physical Exam GENERAL: obese, alert, well appearing, well nourished, no distress, non-toxic EYE EXAM: normal conjunctiva, PERRL and EOM's grossly intact OROPHARYNX: no exudate, no erythema, lips, buccal mucosa, and tongue normal and mucous membranes are moist NECK: supple, no nuchal rigidity, no adenopathy, non-tender CHEST: No reproducible chest pain. LUNGS: Clear to auscultation. Normal chest wall mechanics HEART: no murmurs, S1 normal and S2 normal ABDOMEN: abdomen soft, RUQ tenderness to palpation, normo-active bowel sounds, no masses, no rebound or guarding. BACK: Back is symmetrical on inspection and there is no deformity, no midline tenderness, no CVA tenderness. SKIN: no rashes and no bruising UPPER EXTREMITIES: upper extremities are grossly normal. LOWER EXTREMITIES: No pitting edema. NEURO EXAM: Normal sensorium, cranial nerves II-XII grossly intact, normal speech, no gross weakness of arms, no gross weakness of legs. Medical Decision & Procedures ER Provider Diagnostic Interpretation: X-ray: I interpreted the following studies. Chest: Cardiomegaly. Negative for focal infiltrate, effusion, or wide mediastinum. Hardware in the C spine noted. Patient slightly rotated. No significant change compared to prior. Radiology results have been interpreted by the [facility] radiologist and reviewed by me. US RUQ: Slightly contracted gallbladder. A 3 mm echogenic focus, query polyp. Common bile duct within normal limits. Negative sonographic Renick sign. Fatty liver. Query scarring in the right kidney. No significant right hydronephrosis. Pancreas not well visualized. Laboratory Results Test 06/15/17 03:38 RDW Standard Deviation 38.7 fL (36.4-46.3) RDW Coefficient of Variation 12.9 % (11.5-14.5) White Blood Count 5.45 K/uL (4.8-10.8) Red Blood Count 4.14 M/uL (4.7-6.1) Hemoglobin 12.3 g/dL (14.0-18.0) Hematocrit 34.1 % (42-52) Mean Corpuscular Volume 82.4 fL (80-100) Mean Corpuscular Hemoglobin 29.7 pg (25-34) Mean Corpuscular Hemoglobin Concent 36.1 g/dl (32-36) Platelet Count 110 K/uL (130-400) Mean Platelet Volume 10.1 fL (7.4-10.4) Neutrophils (%) (Auto) 66.0 % Lymphocytes (%) (Auto) 20.4 % Monocytes (%) (Auto) 10.6 % Eosinophils (%) (Auto) 2.4 % Basophils (%) (Auto) 0.2 % Neutrophils # (Auto) 3.60 K/uL (1.4-6.5) Lymphocytes # (Auto) 1.11 K/uL (1.2-3.4) Monocytes # (Auto) 0.58 K/uL (0.11-0.59) Eosinophils # (Auto) 0.13 K/uL (0-0.5) Basophils # (Auto) 0.01 K/uL (0-0.2) Immature Granulocyte % (Auto) 0.4 % Immature Granulocyte # (Auto) 0.02 K/uL (0.00-0.02) Prothrombin Time 10.5 SECONDS (9.0-12.0) Prothromb Time International Ratio 1.0 (0.9-1.1) Est Creatinine Clear Calc Drug Dose 39.3 ml/min Troponin I < 0.015 ng/ml (0-0.045) Pro-B-Type Natriuretic Peptide 111 pg/ml (0-900) Globulin 4.0 gm/dl (2.5-4.0) Albumin/Globulin Ratio 1.0 (0.9-2) Triglycerides Level 303 mg/dl (0-150) Cholesterol Level 166 mg/dl (0-200) HDL Cholesterol 27 mg/dl LDL Cholesterol, Calculated 78 mg/dl VLDL Cholesterol, Calculated 61 mg/dl Cholesterol/HDL Ratio 6.1 Laboratory results per my review. Medications Administered Medications (Trade) Dose Ordered Sig/Parveen Route Start Time Stop Time Status Last Admin Dose Admin Tramadol HCl (Ultram Tab) 50 mg Q4H PRN PO 06/15/17 06:45 07/15/17 06:44 06/15/17 22:13 50 MG Sodium Chloride 1,000 ml @ 60 mls/hr [id number] IV 06/15/17 06:45 07/15/17 06:44 06/16/17 01:33 60 MLS/HR ECG Per My Interpretation Indication: chest pain Rate (beats per minute): 72 Rhythm: sinus rhythm Findings: no acute ischemic change, no ectopy, other (normal axis, normal intervals) ED Course 0414: The patient was evaluated in room A10. A complete history and physical exam was performed. 0543: Upon reevaluation, the patient's pain is controlled. I discussed the findings and the treatment plan with the patient. He expresses agreement and understanding. He will be evaluated for further management. 0622: I reviewed the patient's case with Dr. Aguilar, [facility] [place] hospitalist. He will evaluate the patient for further management. Medical Decision Differential diagnosis: Etiologies such as appendicitis, diverticulitis, PUD, biliary pathology, UTI, pancreatitis, obstruction, mesenteric ischemia, aortic pathology, infections, inflammatory bowel disease, renal colic, cardiac ischemia, aortic dissection, pulmonary embolism, pneumonia, pneumothorax, musculoskeletal, infections, pericarditis, myocarditis, esophageal rupture, gastrointestinal, as well as others were entertained. Patient recently here for congestive heart failure and cardiac evaluation, now returning with abdominal pain that radiated into the chest. Patient found to have pancreatitis on labs. Patient denies any alcohol use and no evidence of gallstones on ultrasound. Given patient's age and diabetic static, discussed with him additional evaluation by hospitalist. Patient currently is not on any medications for hyperlipidemia or hypertriglyceridemia, I feel this is more likely the cause of his pancreatitis. Patient with no other recent viral illness. Medication list will be examined also to look for potential cause. Patient with no other recent travel. Case discussed with hospitalist, they are going to evaluate and likely order additional imaging. Patient is aware of the results was agreeable with plan for additional evaluation and treatment. Patient hemodynamically stable throughout, no evidence of bacteremia/sepsis, doubt ascending cholangitis, pancreatic necrosis, perforation, or GI bleed. I do not suspect that the chest pain today is cardiac, pulmonary, or vascular in origin, likely radiation of pain from the pancreatitis. Medication Reconcilliation Current Medication List: was personally reviewed by me Blood Pressure Screening Patient's blood pressure: Normal blood pressure Blood pressure disposition: Did not require urgent referral Consults Time Called: [phone] Consulting Physician: Dr. Aguilar, [facility] [place] hospitalist Returned Call: [phone] I reviewed the patient's case with him. He will evaluate the patient for further management. Impression Primary Impression: Pancreatitis Additional Impressions: RUQ abdominal pain Chest pain Scribe Attestation The scribe's documentation has been prepared under my direction and personally reviewed by me in its entirety. I confirm that the note above accurately reflects all work, treatment, procedures, and medical decision making performed by me. Departure Information Dispostion Being Evaluated By Hospitalist Referrals Narciso Loo M.D. (PCP) Problem Qualifiers Primary Impression: Pancreatitis Chronicity: acute Pancreatitis type: unspecified pancreatitis type Acute pancreatitis complication: no infection or necrosis Qualified Codes: K85.90 - Acute pancreatitis without necrosis or infection, unspecified Additional Impressions: Chest pain Chest pain type: unspecified Qualified Codes: R07.9 - Chest pain, unspecified
[2017-06-15 04:56] LABS: ALBUMIN 3.8 gm/dl (3.4-5.0); ALT/SGPT 23 U/L (12-78); AST/SGOT 15 U/L (15-37); BLOOD UREA NITROGEN 67 mg/dl (7-18); CALCIUM 8.4 mg/dl (8.5-10.1); CARBON DIOXIDE 21 mmol/L (21-32); CREATININE 2.53 mg/dl (0.60-1.40); GLUCOSE 159 mg/dl (70-99); POTASSIUM 4.6 mmol/L (3.5-5.1); SODIUM 135 mmol/L (136-145)
[2017-06-15 05:02] LABS: ALKALINE PHOSPHATASE 87 U/L (45-117); LIPASE 2810 U/L (73-393); TOTAL PROTEIN 7.8 gm/dl (6.4-8.2)
[2017-06-15] MEDS ORDERED: FENTANYL CITRATE INJ 50 MCG/1 ML 2 ML VIAL IV STA (05:05)
[2017-06-15] MEDS ORDERED: BUME1TAB PO (05:10)
[2017-06-15] MEDS ORDERED: GLUCOSE 10 TABS/TUBE PO PRN (06:45)
[2017-06-15] MEDS ORDERED: MoRPHine SULFATE 4 MG/ML 1 ML CARP\\VIAL IV PRN (06:45)
[2017-06-15] MEDS ORDERED: GLUCOSE 40% GEL 15 GM TUBE PO PRN (06:45)
[2017-06-15] MEDS ORDERED: TRAMADOL HCL 50 MG TAB PO PRN (06:45)
[2017-06-15] MEDS ORDERED: DEXTROSE 50% 50 ML SYR IV PRN (06:45)
[2017-06-15] MEDS ORDERED: GLUCAGON FOR INJ 1 MG VIAL SQ PRN (06:45)
[2017-06-15] MEDS ORDERED: ACETAMINOPHEN 325 MG TAB PO PRN (06:45)
[2017-06-15] MEDS ORDERED: ONDANSETRON 8MG OD TAB PO PRN (06:45)
[2017-06-15] MEDS ORDERED: MoRPHine SULFATE 2 MG/ML CARP IV PRN (06:45)
--- NOTE | 2017-06-15 06:45 | History and Physical ---
History & Physical Date & Time of Service: Jun 15, 2017 at 06:43 Chief Complaint: Chest Pain Primary Care Physician: Narciso Loo M.D. History of Present Illness Source: patient, family, spouse, hospital records The patient is a 62-year-old male recently admitted to [facility] from June 10- for CHF, who had been doing well until last evening when he ate fried fish. Shortly thereafter, he started developing epigastric area discomfort, which then radiated up into the substernal area and toward his left chest and shoulder. His had given him Protonix and Carafate without significant improvement in his symptoms, and nitroglycerin sublingual did not help at all either. The patient did report some mild constipation over the past 4-5 days since being discharged from the hospital, and also has had some generalized fatigue and achiness since that time as well. Past Medical/Surgical History Medical Problems: (1) Acute on chronic renal failure (2) Acute renal failure (3) CHF (congestive heart failure) (4) CHF exacerbation (5) Cough (6) Diabetes (7) Dyspnea (8) Failure of outpatient treatment (9) Fatty liver (10) HTN (hypertension) (11) Hypertension (12) Kidney failure (13) Renal insufficiency (14) SOB (shortness of breath) (15) URI (upper respiratory infection) (16) Volume overload Surgical Problems: (1) H/O cervical spine surgery (2) S/P wrist surgery Family History Cancer Diabetes mellitus Lung disease Social History Smoking Status: Light Tobacco Smoker Smokeless Tobacco Use: No Alcohol Use: none Drug Use: none Marital Status: Housing status: lives with family Occupational Status: disabled Immunizations History of Influenza Vaccine: Unknown History of Tetanus Vaccine?: Unknown History of Pneumococcal: Unknown History of Hepatitis B Vaccine: Unknown Allergies Coded Allergies: No Known Allergies (Unverified , 06/09/17) Home Medications Scheduled Aspirin (Aspirin Ec), 81 MG PO DAILY Bumetanide (Bumex), 1 MG PO QAM Carvedilol (Coreg), 25 MG PO BID Cholecalciferol (Vitamin D3), 50,000 UNITS WK Glipizide (Glipizide ER), 10 MG PO BID Hydralazine Hcl (Apresoline), 25 MG PO TID Insulin Glargine (Lantus), 30 UNITS SQ QPM Isosorbide Mononitrate Ext Rel (Imdur Ext Rel), 60 MG PO QAM Scheduled PRN Tramadol (Ultram), 50 MG PO Q4H PRN for Pain Review of Systems The patient denies chest pain, palpitations, shortness of breath, dyspnea on exertion, cough, lower extremity swelling, sore throat, fevers, chills, sweats, diarrhea , constipation, pelvic pain, blood in urine or stool, dysuria, urinary frequency or urgency, lightheadedness, dizziness, headache, memory loss , loss of consciousness, rash, abnormal bruising or bleeding, imbalance, focal or generalized weakness, numbness or tingling in arms or legs, generalized arthralgias or myalgias, back or neck pain, or night sweats. The review of systems is otherwise negative other than for that already noted above, and at least 10 systems have been reviewed. Physical Exam Vital Signs Date Time Temp Pulse Resp B/P (MAP) Pulse Ox O2 Delivery O2 Flow Rate FiO2 06/15/17 06:31 142/72 06/15/17 06:17 70 18 96 06/15/17 06:01 142/69 06/15/17 05:47 66 17 98 06/15/17 05:42 65 14 98 Room Air 06/15/17 05:31 132/61 06/15/17 05:25 141/66 06/15/17 04:42 64 13 98 06/15/17 04:37 66 16 98 06/15/17 04:32 72 06/15/17 04:22 71 19 96 Room Air 06/15/17 04:12 98 Room Air 06/15/17 04:12 97 Room Air 06/15/17 04:12 36.8 71 21 127/71 98 Room Air 06/15/17 04:11 127/71 The patient is awake, alert and oriented 3, well developed and well nourished, normocephalic and atraumatic, lying in bed and in no acute distress. HEENT--PERRL, EOMI, mucous membranes and oropharynx dry. Neck--supple. No JVD. No bruits. Thyroid normal, trachea midline, no adenopathy. Heart--normal S1 and S2. No murmurs, rubs or gallops. Lungs--clear bilaterally, no respiratory distress, no accessory muscle use. Abdomen--normal bowel sounds and soft. Nontender. Non-distended, no hernias or masses. Obese. Extremities--no cyanosis or clubbing. No edema. There are good distal pulses b/ l. Dermatologic--normal skin turgor, normal color, no abnormal lymph nodes, no rash. Neurologic--cranial nerves II through XII grossly intact. Rheumatologic--normal range of motion. Psychiatric--normal affect. Diagnostics Laboratory Results Results Past 24 Hours Test 06/15/17 03:38 Range/Units White Blood Count 5.45 4.8-10.8 K/uL Red Blood Count 4.14 4.7-6.1 M/uL Hemoglobin 12.3 14.0-18.0 g/dL Hematocrit 34.1 42-52 % Mean Corpuscular Volume 82.4 80-100 fL Mean Corpuscular Hemoglobin 29.7 25-34 pg Mean Corpuscular Hemoglobin Concent 36.1 32-36 g/dl Platelet Count 110 130-400 K/uL Mean Platelet Volume 10.1 7.4-10.4 fL Neutrophils (%) (Auto) 66.0 % Lymphocytes (%) (Auto) 20.4 % Monocytes (%) (Auto) 10.6 % Eosinophils (%) (Auto) 2.4 % Basophils (%) (Auto) 0.2 % Neutrophils # (Auto) 3.60 1.4-6.5 K/uL Lymphocytes # (Auto) 1.11 1.2-3.4 K/uL Monocytes # (Auto) 0.58 0.11-0.59 K/uL Eosinophils # (Auto) 0.13 0-0.5 K/uL Basophils # (Auto) 0.01 0-0.2 K/uL RDW Standard Deviation 38.7 36.4-46.3 fL RDW Coefficient of Variation 12.9 11.5-14.5 % Immature Granulocyte % (Auto) 0.4 % Immature Granulocyte # (Auto) 0.02 0.00-0.02 K/uL Prothrombin Time 10.5 9.0-12.0 SECONDS Prothromb Time International Ratio 1.0 0.9-1.1 Sodium Level 135 136-145 mmol/L Potassium Level 4.6 3.5-5.1 mmol/L Chloride Level 106 98-107 mmol/L Carbon Dioxide Level 21 21-32 mmol/L Anion Gap 8.0 3-11 mmol/L Blood Urea Nitrogen 67 7-18 mg/dl Creatinine 2.53 0.60-1.40 mg/dl Est Creatinine Clear Calc Drug Dose 39.3 ml/min Estimated GFR () 30.7 Estimated GFR (Non- 26.5 BUN/Creatinine Ratio 26.5 10-20 Random Glucose 159 70-99 mg/dl Calcium Level 8.4 8.5-10.1 mg/dl Total Bilirubin 0.4 0.2-1 mg/dl Aspartate Amino Transf (AST/SGOT) 15 15-37 U/L Alanine Aminotransferase (ALT/SGPT) 23 12-78 U/L Alkaline Phosphatase 87 45-117 U/L Troponin I < 0.015 0-0.045 ng/ml Pro-B-Type Natriuretic Peptide 111 0-900 pg/ml Total Protein 7.8 6.4-8.2 gm/dl Albumin 3.8 3.4-5.0 gm/dl Globulin 4.0 2.5-4.0 gm/dl Albumin/Globulin Ratio 1.0 0.9-2 Triglycerides Level 303 0-150 mg/dl Cholesterol Level 166 0-200 mg/dl HDL Cholesterol 27 mg/dl LDL Cholesterol, Calculated 78 mg/dl VLDL Cholesterol, Calculated 61 mg/dl Cholesterol/HDL Ratio 6.1 Lipase 2810 73-393 U/L Impression Assessment and Plan Acute pancreatitis-- Lipase was elevated at 2810 and will be followed serially. Liver enzymes are normal. Check a fasting lipid panel. Ultrasound showed a mildly contracted gallbladder, pancreas was not able to be seen. I have ordered a CT of abdomen and pelvis without contrast for further assessment. N.p.o. except medications. Normal saline at 60 mL's per hour. Zofran 4 mg IV every 6 hours as needed. Pantoprazole 40 mg IV daily. CAD/hypertension/CHF-- Continue carvedilol 25 mg p.o. twice daily, Imdur 60 mg p.o. every morning Hold Bumex 1 mg daily and aspirin 81 mg daily. Diabetes mellitus-- Reduce Lantus from 30 units to 15 units subcu p.m. Hold glipizide ER [address] on Accu-Cheks before meals and at bedtime with NovoLog coverage per scale. Chronic pain with new pancreatic pain-- Tylenol 650 mg p.o. every 6 hours as needed for mild pain. Tramadol 50 mg p.o. every 6 hours as needed for moderate pain. Add morphine sulfate 2-4 mg IV every 2 hours as needed for severe pain. Hyperlipidemia-- He reports that he stopped his Lipitor due to muscle aches. I suggested that he talk to his PCP Dr. Loo regarding use of either Co-Q10 or ubiquinone to help those symptoms. Advanced Directives Existing Advance Directive: No Existing Living Will: No Existing Power of Timekeeper Supervisor: No Resuscitation Status VTE Prophylaxis Will order VTE Prophylaxis: Yes Social Service Consult None Apply
--- NOTE | 2017-06-15 07:00 | DIAGNOSTIC IMAGING REPORT ---
CHEST ONE VIEW PORTABLE CLINICAL HISTORY: Atypical chest pain SHORTNESS OF BREATH COMPARISON STUDY: 06/09/2017 FINDINGS: The heart is enlarged. There is no focal pulmonary consolidation. There is no failure. There are no pleural effusions. Postsurgical changes are present within the cervical spine.[ IMPRESSION: Stable cardiomegaly. No acute findings. Electronically signed by: Ezequiel Bolden M.D. 06/15/2017 6:59 AM Dictated Date/Time: 06/15/2017 6:59 AM
--- NOTE | 2017-06-15 07:02 | DIAGNOSTIC IMAGING REPORT ---
ABDOMEN AND PELVIS CT WITHOUT CONTRAST CT DOSE: 1152.16 mGy.cm HISTORY: Acute generalized abdominal pain with elevated lipase elevated lipase TECHNIQUE: Multiaxial CT images of the abdomen and pelvis were performed without contrast. A dose lowering technique was utilized adhering to the principles of ALARA. COMPARISON STUDY: Right upper quadrant ultrasound of same day, CT chest 04/25/2016. FINDINGS: There is minimal subsegmental bibasilar atelectasis. Lung bases are otherwise clear. No pneumatosis or pneumoperitoneum identified. The imaged inferior cardiac chambers are unremarkable with coronary arterial disease. Evaluation of the solid abdominal organs is limited without the use of IV contrast. The liver, and adrenal glands are unremarkable. Gallbladder is contracted. Spleen is enlarged measuring 18 cm in length. There is mild generalized pancreatic atrophy without evidence of significant peripancreatic inflammatory changes or drainable fluid collection. No biliary ductal dilation identified. Mild to moderate nonspecific bilateral perinephric stranding. No renal calculi or obstructive uropathy. Ureters and urinary bladder are within normal limits. Central calcifications of the prostate. Aorta is normal in course and caliber without aneurysm. No bulky adenopathy. There are a few scattered nonenlarged periportal lymph nodes which are likely physiologic. There is no bowel obstruction or focal bowel wall thickening identified. The appendix appears normal. Soft tissues are unremarkable. 2.0 cm sclerotic lesion of the right iliac bone suggest bone island. Nonspecific calcifications are seen involving the lateral myofascial margin of the left gluteus medius suggesting area of remote trauma. Multilevel facet arthrosis of the lower lumbar spine. Indeterminate 1.4 cm sclerotic lesion of the lateral aspect right sixth rib is partially imaged, however appears unchanged from comparison chest CT. IMPRESSION: 1. No acute intra-abdominal or intrapelvic abnormality identified, specifically no evidence of acute pancreatitis or biliary ductal dilation. 2. No bowel obstruction or focal bowel wall thickening. Normal appendix. 3. Splenomegaly. Electronically signed by: Bonilla Orourke M.D. 06/15/2017 7:01 AM Dictated Date/Time: 06/15/2017 6:53 AM
--- NOTE | 2017-06-15 07:24 | DIAGNOSTIC IMAGING REPORT ---
ABDOMINAL ULTRASOUND, RIGHT UPPER QUADRANT HISTORY: Right upper quadrant abdominal pain.. COMPARISON: Abdominal ultrasound 08/25/2016. FINDINGS: Pancreas: The pancreatic head and tail are obscured by overlying bowel gas. The remaining portions of the pancreas are within normal limits. Liver: The liver is echogenic consistent with fatty change. Gallbladder: Slightly contracted. No definite gallbladder wall thickening. A 3 mm echogenic focus near the fundus appears to represent a small gallbladder polyp. No gallstones. CBD: 3 mm. Right kidney: No hydronephrosis. IMPRESSION: 1. A 3 mm echogenic focus within the gallbladder likely represents a small polyp. No gallstones. 2. Hepatic steatosis. Electronically signed by: Alonso Naqvi M.D. 06/15/2017 7:23 AM Dictated Date/Time: 06/15/2017 7:22 AM
[2017-06-15 07:55] VITALS: BP 149/77; PULSE 68; TEMP 36.5; O2SAT 98
[2017-06-15] MEDS ORDERED: IV FLUIDS COMPLETED PRN (08:45)
[2017-06-15] MEDS: SODIUM CHLORIDE 0.9% 1000ML 1,000 ML IV SCH (08:46)
[2017-06-15] MEDS: ISOSORBIDE MONONITRATE 60 MG TABCR PO SCH (08:47)
[2017-06-15] MEDS: CARVEDILOL 25 MG TAB PO SCH ×2 (08:47→21:03)
[2017-06-15 10:56] VITALS: Ht 162.6 cm; Wt 110.1 kg
[2017-06-15 12:53] VITALS: BP 146/67; PULSE 68
[2017-06-15] MEDS: INSULIN ASPART 100 UNITS/ML 3 ML PEN SC SCH ×3 (12:55→21:01)
[2017-06-15 15:03] VITALS: BP 127/75; PULSE 65; TEMP 36.7; O2SAT 96
[2017-06-15] MEDS ORDERED: INSULIN GLARGINE SOLOSTAR 100 UNITS/ML 3 ML PEN SQ SCH (21:00)
[2017-06-15 22:31] VITALS: BP 134/78; PULSE 65; TEMP 36.6; O2SAT 98
[2017-06-16] MEDS: SODIUM CHLORIDE 0.9% 1000ML 1,000 ML IV SCH (01:33)
[2017-06-16 07:37] VITALS: BP 163/83; PULSE 66; TEMP 36.5; O2SAT 97
[2017-06-16 08:17] VITALS: O2SAT 97
[2017-06-16] MEDS: ISOSORBIDE MONONITRATE 60 MG TABCR PO SCH (08:49)
[2017-06-16] MEDS: CARVEDILOL 25 MG TAB PO SCH (08:50)
[2017-06-16] MEDS: INSULIN ASPART 100 UNITS/ML 3 ML PEN SC SCH ×2 (09:07→11:00)
[2017-06-16 09:46] LABS: HEMATOCRIT 33.2 % (42-52); HEMOGLOBIN 11.7 g/dL (14.0-18.0); MEAN CELL VOLUME 83.6 fL (80-100); MEAN CORPUSCULAR HEMOGLOBIN 29.5 pg (25-34); MEAN CORPUSCULAR HGB CONC 35.2 g/dl (32-36); RED CELL DISTRIBUTION WIDTH SD 39.5 fL (36.4-46.3)
[2017-06-16 10:16] LABS: BASO % 0.2 %; BASO ABS # 0.01 K/uL (0-0.2); EOS % 2.6 %; EOS ABS # 0.11 K/uL (0-0.5); IG# 0.01 K/uL (0.00-0.02); LYMPH % 19.1 %; LYMPH ABS # 0.82 K/uL (1.2-3.4); MEAN PLATELET VOLUME 9.1 fL (7.4-10.4); MONO % 8.6 %; MONO ABS # 0.37 K/uL (0.11-0.59); NEUT % 69.3 %; NEUT ABS # 2.98 K/uL (1.4-6.5); PLATELET COUNT 90 K/uL (130-400)
[2017-06-16 10:47] LABS: ALBUMIN 3.3 gm/dl (3.4-5.0); CALCIUM 8.3 mg/dl (8.5-10.1); CREATININE 1.9 mg/dl (0.60-1.40); POTASSIUM 4.2 mmol/L (3.5-5.1); TOTAL PROTEIN 6.8 gm/dl (6.4-8.2)
[2017-06-16] MEDS ORDERED: PANTOprazole INJ 40 MG in SYRINGE 0 ML IV SCH (11:00)
--- NOTE | 2017-06-16 13:31 | Discharge Instructions ---
Discharge Instructions Date of Service Jun 16, 2017. Admission Reason for Admission: Pancreatitis Discharge Discharge Diagnosis / Problem: Acute pancreatitis Discharge Goals Goal(s): Decrease discomfort, Improve function Activity Recommendations Activity Limitations: resume your previous activity . Instructions / Follow-Up Instructions / Follow-Up Medications: no changes Please follow previous discharge instructions per heart failure and follow up. Acute pancreatitis: unclear cause, as we discussed your lipase was elevated, > 2000, which is enough to make the diagnosis however, on CAT scan of the abdomen/pelvis there was no radiographic evidence of pancreatitis which does not make sense your gall bladder was normal, no gall stones at this point we would call the pancreatitis idiopathic (meaning we don't know the cause) on labs today, the lipase is down to 800, no pain with eating continue to stay well hydrated, eat small amounts, avoid fried foods, excessive fat intake with meals for 2 weeks FOLLOW UP - call for appointment with Dr. Loo in one week, can keep appointment for previous admission if you had that already scheduled Current Hospital Diet Patient's current hospital diet: Diabetes Type 2 Diet, AHA Diet (Heart Healthy) Discharge Diet Recommended Diet: AHA Diet (Heart Healthy), Diabetes Type 2 Diet Pending Studies Studies pending at discharge: no Laboratory Results Hemoglobin A1c Test 06/10/17 06:19 Range/Units Estimated Average Glucose 143 mg/dl Hemoglobin A1c 6.6 H 4.5-5.6 % Lipid Panel Test 06/15/17 03:38 Range/Units Triglycerides Level 303 H 0-150 mg/dl Cholesterol Level 166 0-200 mg/dl HDL Cholesterol 27 mg/dl Cholesterol/HDL Ratio 6.1 LDL Cholesterol, Calculated 78 mg/dl Medical Emergencies . Who to Call and When: Medical Emergencies: If at any time you feel your situation is an emergency, please call 911 immediately. . Non-Emergent Contact Non-Emergency issues call your: Primary Care Provider Call Non-Emergent contact if: your pain is worsening, your pain is concerning you, you have any medication questions . . "Provider Documentation" section prepared by Rhys N[place]. . [place] Drug Monitoring Program Search Results: no issues identified
[2017-06-16] MEDS ORDERED: FENO145T26 PO (13:37)
[2017-06-16 13:51] VITALS: BP 163/83; PULSE 66; TEMP 36.5; O2SAT 97
--- NOTE | 2017-06-16 22:15 | Discharge Summary ---
Discharge Summary Date of Service Jun 16, 2017. Discharge Summary Admission Date: Jun 15, 2017 at 07:01 Discharge Date: Jun 16, 2017 Discharge Disposition: Home Principal Diagnosis: Acute pancreatitis, idiopathic Problems/Secondary Diagnoses: Elevated triglycerides Chronic diastolic heart failure DM, insulin dependent Obesity Immunizations: Have You Had Influenza Vaccine: Unknown History of Tetanus Vaccine?: Unknown History of Pneumococcal: Unknown History of Hepatitis B Vaccine: Unknown Procedures: none Consultations: none Medication Reconciliation New Medications: Fenofibrate (Tricor) 145 Mg Tab 145 MG PO DAILY for 30 Days, #30 TAB Continued Medications: Aspirin (Aspirin Ec) 81 Mg Tab 81 MG PO DAILY Bumetanide (Bumex) 1 Mg Tab 1 MG PO QAM, TAB Carvedilol (Coreg) 25 Mg Tab 25 MG PO BID, TAB Cholecalciferol (Vitamin D3) 50,000 Unit Tab 54228 UNITS WK TAKES ON SUNDAYS. Glipizide (Glipizide ER) 10 Mg Tabcr 10 MG PO BID Hydralazine Hcl (Apresoline) 25 Mg Tab 25 MG PO TID, TAB Insulin Glargine (Lantus) 100 Unit/Ml Inj 30 UNITS SQ QPM, VIAL Isosorbide Mononitrate Ext Rel (Imdur Ext Rel) 60 Mg Ertab 60 MG PO QAM, TAB Tramadol (Ultram) 50 Mg Tab 50 MG PO Q4H PRN for Pain Discharge Exam Patient feeling much better, tolerated clear liquids yesterday, advanced to regular diet today, no issues. Denied pain, denied nausea. Reviewed labs, lipase was >2000 on admission, down to 800 today. Certainly high enough to diagnose pancreatitis. However, CT showed no evidence of pancreatitis. RUQ US showed contracted gall bladder, no stones, normal CBC patient does not drink alcohol discussed elevated triglycerides, 300, not high enough to be considered cause of pancreatitis does not take Lipitor due to muscle aches no medications that could cause pancreatitis suspect it is idiopathic, explained this to patient reviewed all lab work today, reviewed imaging from admission Review of Systems: Constitutional: No fever, No chills, No sweats, No weight loss, No weakness , No fatigue, No problem reported Eyes: No worsening of vision, No eye pain, No redness, No discharge, No diplopia, No problem reported ENT: No hearing loss, No unusual epistaxis, No nasal symptoms, No sore throat, No tinnitus, No dental problems, No trouble swallowing, No problem reported Respiratory: No cough, No sputum, No wheezing, No shortness of breath, No dyspnea on exertion, No dyspnea at rest, No hemoptysis, No problem reported Cardiovascular: No chest pain, No orthopnea, No PND, No edema, No claudication, No palpitations, No problem reported Abdomen: No pain, No nausea, No vomiting, No diarrhea, No constipation, No GI bleeding, No problem reported Musculoskeletal: No joint pain, No muscle pain, No swelling, No calf pain, No problem reported Genitourinary - Male: No hematuria, No dysuria, No urinary frequency, No urinary urgency Neurologic: No memory loss, No paralysis, No weakness, No numbness/tingling , No vertigo, No balance problems, No problem reported Endocrine: No fatigue, No excessive thirst, No excessive urination, No problem reported Hematologic / Lymphatic: No abnormal bleeding/bruising, No clotting problems , No swollen lymph nodes, No night sweats, No problem reported Integumentary: No rash, No itch, No new/changing skin lesions, No color change, No bleeding, No problem reported Physical Exam: General Appearance: no apparent distress, + obese Eyes: normal inspection, EOMI, sclerae normal ENT: normal ENT inspection, hearing grossly normal, pharynx normal Neck: supple, no adenopathy, no JVD, trachea midline Respiratory/Chest: chest non-tender, lungs clear, normal breath sounds, no respiratory distress, no accessory muscle use Cardiovascular: regular rate, rhythm, no edema, no gallop, no JVD, no murmur , normal peripheral pulses Abdomen / GI: normal bowel sounds, non tender, soft, no organomegaly Extremities: normal inspection, no calf tenderness, normal capillary refill , no pedal edema, normal range of motion, pelvis stable Neurologic/Psychiatric: baggage and 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 II-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 nml as tested, no motor/sensory deficits , alert, normal mood/affect, normal reflexes, oriented x 3 Skin: normal color, warm/dry, no rash Lymphatic: no adenopathy Hospital Course Acute pancreatitis-- idiopathic resolved in 36 hours with IV fluids, bowel rest tolerated clears yesterday and then regular diet today lipase down to 800 today, was 2800 on admission however, CT did not show any evidence of pancreatitis US showed contracted GB, no stones, no inflammation, no CBD dilation does not drink TG elevated at 300, not high enough to the cause no medications that could cause pancreatitis d/c to home, instructed to avoid fried food, avoid excess fatty foods will follow up with PCP Elevated triglycerides: 300, was fasting reviewed prior records, TG were 150 on prior testing discussed with patient, he cannot take statins due to muscle pain will try Fenofibrate, discussed that he may have some muscle aches follow up with Dr. Loo CAD/hypertension/CHF-- Continue carvedilol 25 mg p.o. twice daily, Imdur 60 mg p.o. every morning Bumex held initially for pancreatitis, resume on discharge Diabetes mellitus-- continue Lantus 30 units HS resume glipizide ER [address] on Accu-Cheks before meals and at bedtime with NovoLog coverage per scale. Total Time Spent: Greater than 30 minutes This includes examination of the patient, discharge planning, medication reconciliation, and communication with other providers. Discharge Instructions Please refer to the electronic Patient Visit Report (Discharge Instructions) for additional information. Follow-Up Dr. Loo in one week Additional Copies To Narciso Loo M.D.
[2017-07-31] MEDS ORDERED: CARV25TA2 PO (10:01)
[2017-07-31] MEDS ORDERED: APR25 PO (10:01)
[2017-07-31] MEDS ORDERED: ASPI81TA28 PO (10:01)
[2017-07-31] MEDS ORDERED: ISOS60TA25 PO (10:01)
[2017-07-31] MEDS ORDERED: GLCSR10 PO (10:01)
[2017-07-31] MEDS ORDERED: CHOL1TAB63 PO (18:01)
[2017-07-31] MEDS ORDERED: INSDGI SQ (18:01)
== END 2017-06-16 15:09 | disposition home or self-care (01) ==
LOC: EDBD 04:07 → C.EDA 04:08 → C.MS4W 07:01 → ENRESERV 07:15 → C.MS4W 06-16 09:25
PROVIDERS: ADMIT Hospitalist; ATTEND Internal Medicine
DX: K85.00 Idiopathic acute pancreatitis without necrosis or infection (principal); E78.1 Pure hyperglyceridemia; I50.32 Chronic diastolic (congestive) heart failure; E11.9 Type 2 diabetes mellitus without complications; I11.0 Hypertensive heart disease with heart failure; E66.9 Obesity, unspecified; Z79.82 Long term (current) use of aspirin; Z79.899 Other long term (current) drug therapy; Z79.4 Long term (current) use of insulin; Z98.890 Other specified postprocedural states; Z80.9 Family history of malignant neoplasm, unspecified; Z83.3 Family history of diabetes mellitus; Z83.6 Family history of other diseases of the respiratory system; F17.200 Nicotine dependence, unspecified, uncomplicated

== ENCOUNTER → 2017-06-18 | Outpatient (CLI) | payer OTHER ==
[~2017-06-18] MED LIST changes: +APR25 PO; +ASPI81TA28 PO; -BMX1 PO; +BUME1TAB PO; +CARV25TA2 PO; +CHOL1TAB63; +FENO145T26 PO; +GLCSR10 PO; +INSDGI SQ; +ISOS60TA25 PO
[2017-06-18 13:05] LABS: HEMATOCRIT 36.2 % (42-52); HEMOGLOBIN 12.3 g/dL (14.0-18.0); MEAN CELL VOLUME 83.8 fL (80-100); MEAN CORPUSCULAR HEMOGLOBIN 28.5 pg (25-34); MEAN PLATELET VOLUME 10.4 fL (7.4-10.4); PLATELET COUNT 125 K/uL (130-400); RED CELL DISTRIBUTION WIDTH SD 39.3 fL (36.4-46.3); WHITE BLOOD COUNT 4.55 K/uL (4.8-10.8)
[2017-06-18 13:39] LABS: ALBUMIN 3.7 gm/dl (3.4-5.0); BLOOD UREA NITROGEN 39 mg/dl (7-18); CALCIUM 8.8 mg/dl (8.5-10.1); CARBON DIOXIDE 21 mmol/L (21-32); CREATININE 2.24 mg/dl (0.60-1.40); GLUCOSE 102 mg/dl (70-99); LIPASE 518 U/L (73-393); POTASSIUM 4.3 mmol/L (3.5-5.1); SODIUM 138 mmol/L (136-145)
== END | disposition home or self-care (01) ==
LOC: C.LABBFT 10:31
PROVIDERS: ATTEND Internal Medicine Nephrology
DX: N18.3 Chronic kidney disease, stage 3 (moderate) (principal); D64.9 Anemia, unspecified; R80.9 Proteinuria, unspecified; K85.00 Idiopathic acute pancreatitis without necrosis or infection

== ENCOUNTER → 2017-06-27 | Outpatient (CLI) | payer OTHER | END | disposition home or self-care (01) | LOC: C.LABBFT 12:29 | PROVIDERS: ATTEND Physician Assistant Medical | DX: K85.00 Idiopathic acute pancreatitis without necrosis or infection (principal) ==

== ENCOUNTER → 2017-07-19 | Outpatient (CLI) | payer OTHER ==
[~2017-07-19] MED LIST changes: -FENO145T26 PO
[2017-07-19 17:04] LABS: BLOOD UREA NITROGEN 38 mg/dl (7-18); CALCIUM 8.9 mg/dl (8.5-10.1); CARBON DIOXIDE 28 mmol/L (21-32); CREATININE 2.81 mg/dl (0.60-1.40); GLUCOSE 210 mg/dl (70-99); PHOSPHORUS 3.1 mg/dl (2.5-4.9); POTASSIUM 3.9 mmol/L (3.5-5.1); SODIUM 136 mmol/L (136-145)
== END | disposition home or self-care (01) ==
LOC: C.LABBFT 11:42
PROVIDERS: ATTEND Internal Medicine Nephrology
DX: N18.3 Chronic kidney disease, stage 3 (moderate) (principal)

== ENCOUNTER → 2017-07-25 | Outpatient (CLI) | payer OTHER ==
[2017-07-25 16:44] LABS: BLOOD UREA NITROGEN 46 mg/dl (7-18); CARBON DIOXIDE 30 mmol/L (21-32); CREATININE 3.35 mg/dl (0.60-1.40); GLUCOSE 149 mg/dl (70-99); POTASSIUM 4.2 mmol/L (3.5-5.1); SODIUM 137 mmol/L (136-145)
== END | disposition home or self-care (01) ==
LOC: C.LABBFT 12:27
PROVIDERS: ATTEND Internal Medicine Nephrology
DX: N18.3 Chronic kidney disease, stage 3 (moderate) (principal)

== ENCOUNTER 2017-07-31 20:46 | Emergency (ER) | payer OTHER ==
[~2017-07-31] VITALS: Ht 162.6 cm; Wt 112.2 kg
[~2017-07-31 20:46] MED LIST changes: -FRS/40 PO
[2017-07-31 20:57] VITALS: TEMP 36.8; Ht 162.6 cm; Wt 112.2 kg
--- NOTE | 2017-07-31 21:37 | DIAGNOSTIC IMAGING REPORT ---
CT SCAN OF THE ABDOMEN AND PELVIS WITHOUT CONTRAST CLINICAL HISTORY: Abdominal pain in right lateral abdominal wall swelling COMPARISON STUDY: 06/15/2017 TECHNIQUE: CT scan of the abdomen and pelvis was performed from the lung bases to the proximal femurs. Images are reviewed in the axial, sagittal, and coronal planes. IV contrast was not administered for this examination. A dose lowering technique was utilized adhering to the principles of ALARA. CT DOSE: 1650.08 mGy.cm FINDINGS: Lower chest: There is mild lower lobe cylindrical bronchiectatic change Liver: The unenhanced liver is normal in size, contour, and attenuation. There is no intrahepatic biliary ductal dilatation. Gallbladder: Unremarkable. Spleen: The spleen remains enlarged measuring 15.7 cm Pancreas: Unremarkable. Adrenal glands: Unremarkable. Kidneys: No renal, ureteral, or bladder calculi are visualized. Bowel: There are no transition zones indicate bowel obstruction. The appendix appears normal. There is no acute diverticulitis. Peritoneum: There is no intraperitoneal free air or abdominal ascites. Vasculature: The abdominal aorta is normal in course and caliber. Adenopathy: None. Pelvic viscera: The prostate is mildly enlarged measuring 44 mm transversely. Skeletal structures: There is right-sided L5 spondylolysis IMPRESSION: 1. No acute intra-abdominal or pelvic findings 2. No evidence of bowel obstruction. No evidence of free air 3. No renal, ureteral, or bladder calculi identified 4. Stable splenomegaly 5. No evidence of abdominal wall hernia. There are no findings to explain the reported visualized abdominal wall asymmetry Electronically signed by: Ezequiel Bolden M.D. 07/31/2017 9:35 PM Dictated Date/Time: 07/31/2017 9:30 PM
[2017-07-31] MEDS ORDERED: FRS/40 PO (21:44)
--- NOTE | 2017-07-31 21:45 | EMERGENCY ROOM VISIT NOTE ---
History Report prepared by Jasmine: Allison Mccarthy Under the Supervision of: Dr. Heraclio Sarah D.O. First contact with patient: 21:02 Chief Complaint: OTHER COMPLAINT Stated Complaint: SWOLLEN ON RT SIDE OF STOMACH History of Present Illness The patient is a 62 year old male who presents to the Emergency Room with complaints of persistent right flank swelling since this evening. He has a history of stage 3 kidney failure. He reports a history of hospitalization due to fluid retention and was placed on Lasix. He states his abdomen has since come down. He notes a history of elevated Creatine and was placed on the corresponding medication. He notes there is a lump to the right side of his abdomen. He notes that it was down, though it became bigger this evening. He denies any right flank pain. He notes the lump on his right side has been monitored by his PCP for several months. He states that he had shortness of breath. He has a history of pancreatitis. Source of History: patient Onset: since this evening Position: other (right flank) Quality: other (swelling) Associated Symptoms: + SOB Note: He denies any right flank pain. Review of Systems See HPI for pertinent positives & negatives. A total of 10 systems reviewed and were otherwise negative. Past Medical & Surgical Medical Problems: (1) Acute on chronic renal failure (2) Acute renal failure (3) CHF (congestive heart failure) (4) CHF exacerbation (5) Diabetes (6) Dyspnea (7) Fatty liver (8) HTN (hypertension) (9) Hypertension (10) Kidney failure Surgical Problems: (1) H/O cervical spine surgery (2) S/P wrist surgery Family History Cancer Diabetes mellitus Lung disease Social History Smoking Status: Current Some Day Smoker Alcohol Use: none Drug Use: none Marital Status: Housing Status: lives with significant other Occupation Status: disabled Current/Historical Medications Scheduled Aspirin (Aspirin Ec), 81 MG PO DAILY Carvedilol (Coreg), 25 MG PO BID Cholecalciferol (Vitamin D3), 50,000 INTER.UNIT PO WK Furosemide (Lasix), 40 MG PO BID Glipizide (Glipizide ER), 10 MG PO BID Hydralazine Hcl (Apresoline), 25 MG PO TID Insulin Glargine (Lantus), 40 UNITS SQ QPM Isosorbide Mononitrate Ext Rel (Imdur Ext Rel), 60 MG PO QAM Allergies Coded Allergies: No Known Allergies (Unverified , 06/09/17) Physical Exam Vital Signs Date Time Temp Pulse Resp B/P (MAP) Pulse Ox O2 Delivery O2 Flow Rate FiO2 07/31/17 21:52 84 20 131/81 94 07/31/17 20:57 36.8 89 20 149/80 96 Room Air Physical Exam CONSTITUTIONAL/VITAL SIGNS: Reviewed / noted above. GENERAL: Non-toxic in appearance. INTEGUMENTARY: Warm, dry, and [place]. HEAD: Normocephalic. EYES: without scleral icterus or trauma. ENT/OROPHARYNX: clear and moist. LYMPHADENOPATHY/NECK: Is supple without lymphadenopathy or meningismus. RESPIRATORY: Lungs clear and equal. CARDIOVASCULAR: Regular rate and rhythm. GI/ABDOMEN: Soft and nontender. No organomegaly or pulsatile mass. No rebound or guarding. Normal bowel sounds. Mild right lateral abdominal wall prolusion compared to left side. EXTREMITIES: Warm and well perfused. BACK: No CVA tenderness. NEUROLOGICAL: Intact without focal deficits. PSYCHIATRIC: normal affect. MUSCULOSKELETAL: Normally developed with good muscle tone. Medical Decision & Procedures ER Provider Diagnostic Interpretation: Radiology results as stated below per my review and radiologist interpretation: CT SCAN OF THE ABDOMEN AND PELVIS WITHOUT CONTRAST CLINICAL HISTORY: Abdominal pain in right lateral abdominal wall swelling COMPARISON STUDY: 06/15/2017 TECHNIQUE: CT scan of the abdomen and pelvis was performed from the lung bases to the proximal femurs. Images are reviewed in the axial, sagittal, and coronal planes. IV contrast was not administered for this examination. A dose lowering technique was utilized adhering to the principles of ALARA. CT DOSE: 1650.08 mGy.cm FINDINGS: Lower chest: There is mild lower lobe cylindrical bronchiectatic change Liver: The unenhanced liver is normal in size, contour, and attenuation. There is no intrahepatic biliary ductal dilatation. Gallbladder: Unremarkable. Spleen: The spleen remains enlarged measuring 15.7 cm Pancreas: Unremarkable. Adrenal glands: Unremarkable. Kidneys: No renal, ureteral, or bladder calculi are visualized. Bowel: There are no transition zones indicate bowel obstruction. The appendix appears normal. There is no acute diverticulitis. Peritoneum: There is no intraperitoneal free air or abdominal ascites. Vasculature: The abdominal aorta is normal in course and caliber. Adenopathy: None. Pelvic viscera: The prostate is mildly enlarged measuring 44 mm transversely. Skeletal structures: There is right-sided L5 spondylolysis IMPRESSION: 1. No acute intra-abdominal or pelvic findings 2. No evidence of bowel obstruction. No evidence of free air 3. No renal, ureteral, or bladder calculi identified 4. Stable splenomegaly 5. No evidence of abdominal wall hernia. There are no findings to explain the reported visualized abdominal wall asymmetry Electronically signed by: Ezequiel Bolden M.D. 07/31/2017 9:35 PM Dictated Date/Time: 07/31/2017 9:30 PM ED Course 2103: Previous medical records were reviewed. The patient was evaluated in room C11B. A complete history and physical examination was performed. 2147: I reassessed the patient at this time. I discussed the results and treatment plan with the patient. I answered all pertaining questions that he had. He expressed understanding and verbalized agreement. The patient will be discharged home. Medical Decision Differential considered: pancreatitis, hepatitis, or acute cholecystitis, AAA, UTI, pyelonephritis, kidney stones, appendicitis, diverticulitis, shingles, bowel obstruction mesenteric ischemia, intussusception, hernia, testicular torsion. This is a 62-year-old male who presents to the ED with a chief complaint of some right lateral abdominal wall asymmetry. He was concerned about this came to the ED for evaluation. He denies having any pain in the area. He denies any specific complaints. His exam does reveal a small amount of asymmetry in the right hand side Compared to the left. The patient was concerned about something serious causing this asymmetry. A CT scan did not show any abnormalities. He was discharged. Medication Reconcilliation Current Medication List: was personally reviewed by me Blood Pressure Screening Patient's blood pressure: Elevated blood pressure Blood pressure disposition: Referred to PCP Impression Primary Impression: Abdomen enlarged Scribe Attestation The scribe's documentation has been prepared under my direction and personally reviewed by me in its entirety. I confirm that the note above accurately reflects all work, treatment, procedures, and medical decision making performed by me. Departure Information Dispostion Home / Self-Care Referrals No Doctor, Assigned (PCP) Forms HOME CARE DOCUMENTATION FORM, IMPORTANT VISIT INFORMATION, WORK / SCHOOL INSTRUCTIONS Patient Instructions [facility] Additional Instructions No abnormalities were seen on your CT scan today.
[2017-07-31 21:52] VITALS: BP 131/81; PULSE 84; O2SAT 94
== END 2017-07-31 21:53 | disposition home or self-care (01) ==
LOC: C.EDB 20:47 → C.EDC 21:53
DX: R10.31 Right lower quadrant pain (principal); I12.9 Hypertensive chronic kidney disease with stage 1 through stage 4 chronic kidney disease, or unspecified chronic kidney disease; N18.3 Chronic kidney disease, stage 3 (moderate); I50.9 Heart failure, unspecified; E11.9 Type 2 diabetes mellitus without complications; K76.0 Fatty (change of) liver, not elsewhere classified; F17.210 Nicotine dependence, cigarettes, uncomplicated; Z80.9 Family history of malignant neoplasm, unspecified; Z83.3 Family history of diabetes mellitus; Z79.82 Long term (current) use of aspirin; Z79.84 Long term (current) use of oral hypoglycemic drugs; Z79.4 Long term (current) use of insulin; Z79.899 Other long term (current) drug therapy

== ENCOUNTER → 2017-07-31 | Outpatient (CLI) | payer OTHER ==
[~2017-07-31] MED LIST changes: -CHOL1TAB63; +CHOL1TAB63 PO; +FRS/40 PO
[2017-07-31 18:31] LABS: ALBUMIN 3.8 gm/dl (3.4-5.0); BLOOD UREA NITROGEN 32 mg/dl (7-18); CALCIUM 8.6 mg/dl (8.5-10.1); CARBON DIOXIDE 27 mmol/L (21-32); CREATININE 2.75 mg/dl (0.60-1.40); GLUCOSE 125 mg/dl (70-99); POTASSIUM 3.7 mmol/L (3.5-5.1); SODIUM 138 mmol/L (136-145)
[2017-07-31 18:32] LABS: PHOSPHORUS 3.5 mg/dl (2.5-4.9)
== END | disposition home or self-care (01) ==
LOC: C.LABBFT 12:08
PROVIDERS: ATTEND Internal Medicine Nephrology
DX: N17.9 Acute kidney failure, unspecified (principal)

== ENCOUNTER → 2017-10-24 | Outpatient (CLI) | payer OTHER ==
[~2017-10-24] MED LIST changes: -BUME1TAB PO; +FRS/40 PO; -GLCSR10 PO; -INSDGI SQ; +METO5TAB25 PO; +NVLGI/PEN SC; +SIME80CH PO; -TRAM-10 PO
[2017-10-24 17:36] LABS: ALKALINE PHOSPHATASE 77 U/L (45-117); ALT/SGPT 19 U/L (12-78); AST/SGOT 22 U/L (15-37); BLOOD UREA NITROGEN 49 mg/dl (7-18); CALCIUM 9.3 mg/dl (8.5-10.1); CARBON DIOXIDE 34 mmol/L (21-32); CREATININE 2.97 mg/dl (0.60-1.40); GLUCOSE 214 mg/dl (70-99); PHOSPHORUS 3.3 mg/dl (2.5-4.9); POTASSIUM 3.8 mmol/L (3.5-5.1); SODIUM 134 mmol/L (136-145); TOTAL PROTEIN 7.9 gm/dl (6.4-8.2)
== END | disposition home or self-care (01) ==
LOC: C.LABBFT 13:28
PROVIDERS: ATTEND Internal Medicine Nephrology
DX: K85.00 Idiopathic acute pancreatitis without necrosis or infection (principal); N18.3 Chronic kidney disease, stage 3 (moderate); R10.11 Right upper quadrant pain

== ENCOUNTER → 2017-10-30 | Outpatient (CLI) | payer OTHER ==
[2017-10-30 12:41] LABS: ALBUMIN 3.5 gm/dl (3.4-5.0); BLOOD UREA NITROGEN 31 mg/dl (7-18); CALCIUM 8.8 mg/dl (8.5-10.1); CARBON DIOXIDE 28 mmol/L (21-32); GLUCOSE 149 mg/dl (70-99); PHOSPHORUS 2.9 mg/dl (2.5-4.9); POTASSIUM 3.5 mmol/L (3.5-5.1); SODIUM 139 mmol/L (136-145)
== END | disposition home or self-care (01) ==
LOC: C.LABBFT 10:10
PROVIDERS: ATTEND Internal Medicine Nephrology
DX: N18.3 Chronic kidney disease, stage 3 (moderate) (principal)

== ENCOUNTER 2018-06-19 23:24 | Inpatient (IN) ==
[2018-06-20 00:23] LABS: Basophils # (auto) 0.01 K/uL (0-0.2); Basophils % (auto) 0.2 %; Eosinophils # (auto) 0.16 K/uL (0-0.5); Eosinophils % (auto) 2.4 %; Hematocrit (blood only) 40.6 % (42-52); Hemoglobin 14.5 g/dL (14.0-18.0); Immature Granulocytes # (auto) 0.01 K/uL (0.00-0.02); Immature Granulocytes % (auto) 0.2 %; Lymphocytes % (auto) 24.3 %; Mean Corpuscular Hgb Conc 35.7 g/dL (32-36); Mean Corpuscular Volume 82.2 fL (80-100); Mean Platelet Volume 10.1 fL (7.4-10.4); Monocytes # (auto) 0.48 K/uL (0.11-0.59); Monocytes % (auto) 7.3 %; Neutrophils # (auto) 4.32 K/uL (1.4-6.5); Neutrophils % (auto) 65.6 %; Platelet Count 150 K/uL (130-400); RDW Coefficient of Variation 14.7 % (11.5-14.5); RDW Standard Deviation 43.5 fL (36.4-46.3); Red Blood Count 4.94 M/uL (4.7-6.1); White Blood Count 6.58 K/uL (4.8-10.8)
[2018-06-20 00:31] LABS: Alanine Aminotransferase 23 U/L (12-78); Albumin Level 3.7 gm/dl (3.4-5.0); Aspartate Aminotransferase 21 U/L (15-37); BUN Creatinine Ratio 17.1 (10-20); Blood Urea Nitrogen 43 mg/dl (7-18); Calcium 8.5 mg/dl (8.5-10.1); Carbon Dioxide 32 mmol/L (21-32); Chloride 94 mmol/L (98-107); Est GFR (African American) 30.4; Est GFR (Non-African American) 26.2; Glucose 348 mg/dl (70-99); Magnesium 1.9 mg/dl (1.8-2.4); Potassium 3.2 mmol/L (3.5-5.1); Sodium 134 mmol/L (136-145)
[2018-06-20 00:33] LABS: Albumin Globulin Ratio 0.9 (0.9-2); Bilirubin,Total 1.2 mg/dl (0.2-1); Globulin 4.1 gm/dl (2.5-4.0); Total Protein 7.8 gm/dl (6.4-8.2)
[2018-06-20 00:36] LABS: Partial Thromboplastin Ratio 0.8; Partial Thromboplastin Time 22.5 Seconds (21.0-31.0); Prothrombin Time 10.2 Seconds (9.0-12.0)
[2018-06-20 00:41] LABS: Alkaline Phosphatase 123 U/L (45-117); Beta-Hydroxybutyrate 0.86 mg/dl (0.2-2.81); NT Pro B Type Natriuretic Pept 54 pg/ml (0-900); Troponin I < 0.015 ng/ml (0-0.045)
[2018-06-20 00:46] LABS: Appearance Urine Clear (Clear); Bilirubin Urine Negative (Negative); Blood Urine Negative (Negative); Color Urine Yellow; Glucose Urine UA 1+ (Negative); Ketones Urine Negative (Negative); Leukocyte Esterase Urine Negative (Negative); Nitrite Urine Negative (Negative); Protein Urine Negative (Negative); Urobilinogen Urine Negative (Negative)
[2018-06-20] MEDS ORDERED: FUROSEMIDE 40 MG/4 ML VIAL IV ONE (02:33)
--- NOTE | 2018-06-20 04:54 | History & Physical Report ---
Date of Service June 20, 2018 Assessment & Plan (1) CHF (congestive heart failure): 62 y/o M Hx diastolic CHF, HPL, HTN, DMII, CAD, obese, gout, MARISA. Presenting with weight gain, SOB with exertion and some chest tightness over the past week. He states that his abdomen feels distended which is where he tends to accumulate fluid. He denies a productive cough, n/v or fevers. He has recently struggled with his volume status and had been switched from Lasix to Torsemide and then back to Lasix with Metolazone. He had contacted his coding clerk and was instructed to attend the hospital for IV diueresis. Initial labs are notable for mild hypokalemia. 1) CHF exacerbation - placed on IV Lasix and Coreg. We have requested a cardiology cinsult to advise on a discharge regimen. 2) Acute on chronic RF - this should improve with diuresis - we wlll trend a BMP 3) DM II - placed on a SS 4) Gout - cont Allopurinol although I would reconsider if renal function worsens 5) Regarding his hypokalemia - renal function is impaired so we will replace with caution. Would be more aggressive replacing if he shows improvement. Full code , Heparin prophylaxis Total time for this admit including review of labs, meds, imaging, records - discussion with pt and ER attending - 38 min History of Present Illness Chief Complaint: weight gain, SOB, chest tight Primary Care Provider: Narciso Loo MD 63 y/o M hx PMH: 62 y/o M Hx diastolic CHF, HPL, HTN, DMII, CAD, obese, gout, MARISA. Presenting with weight gain, SOB with exertion and some chest tightness over the past week. He states that his abdomen feels distended which is where he tends to accumulate fluid. He denies a productive cough, n/v or fevers. He has recently struggled with his volume status and had been switched from Lasix to Torsemide and then back to Lasix with Metolazone. He had contacted his coding clerk and was instructed to attend the hospital for IV diueresis. Initial labs are notable for mild hypokalemia. PMH: 1) CHF - diastolic - preserved EF 2) MARISA - CPAP 3) Obese 4) HPL 5) HTN 6) DM II 7) Hepatic steatosis 8) Chronic, mild thrombocytopenia 9) CAD - nonocclusive per cath 2014 10) Gout Surgical: Cervical spine surgery Social: does not currently drink or smoke Family: CAD, DM Surgical: Allergies Allergy/AdvReac Type Severity Reaction Status Date / Time Xddutqo-Icg-Qvo Reductase Allergy Intermediate Muscle pain Verified 06/20/18 01:49 Inhibitor Home Medications Home Medications Medication Instructions Recorded Confirmed Type aspirin [Aspir-81] 81 mg PO QAM 12/11/17 06/20/18 History carvedilol 25 mg PO BID 12/11/17 06/20/18 History hydralazine 25 mg PO BID 12/11/17 06/20/18 History isosorbide mononitrate 60 mg PO QAM 12/11/17 06/20/18 History allopurinol 200 mg PO DAILY 06/20/18 06/20/18 History diclofenac sodium 1 applic TOPICAL BID 06/20/18 06/20/18 History furosemide 40 mg PO TID 06/20/18 06/20/18 History insulin NPH and regular human 40 unit SUBCUT QAM 06/20/18 06/20/18 History [Novolin 70/30 U-100 Insulin] insulin NPH and regular human 60 unit SUBCUT QPM 06/20/18 06/20/18 History [Novolin 70/30 U-100 Insulin] torsemide 10 mg PO BID 06/20/18 06/20/18 History tramadol 50 - 100 mg PO TID PRN 06/20/18 06/20/18 History Past Med/Surg History Medical History CHF (congestive heart failure) (Chronic) HTN (hypertension) (Chronic) Diabetes (Chronic) Kidney failure (Chronic) Fatty liver (Chronic) Acute on chronic renal failure Social History Feels Safe at Home: Yes Smoking Status: Current every day smoker Review of Systems Gen: Denies fevers, night sweats, rigors, fatigue, malaise, + weight gain ENT: Denies congestion, throat pain, hearing loss Eyes: Denies acute visual changes CV: Denies CP, palpitations - chest tightness - can occur with exertion Pulmonary: SOB with exertion GI: Denies N/V, diarrhea, constipation Neuro: Denies acute or unilateral weakness, acute gait impairment, headache or acute visual changes Musculoskeletal: Denies joint pain, inflammation Endocrine: Denies polydipsia, polyuria Skin: Denies acute rashes or ulcers Physical Exam Vital Signs (Past 24 Hours): Last Vital Signs Temp 37 C 06/19/18 23:27 Pulse 77 06/20/18 03:51 Resp 18 06/20/18 03:51 BP 145/73 H 06/20/18 03:51 Pulse Ox 96 06/20/18 03:51 Physical Exam: General: Overweight, middle-aged mael, AAO x 3, no distress ENT: No erythema or exudates, no thrush Eyes: BENJI, EOMI Head and neck: Normocephalic, atraumatic, neck is supple. Chest/heart: Nontender, S1,2, RRR, no murmurs, no gallops Lungs: CTAB, no wheezing or crackles Abdomen: Distended, nontender Neuro: AAO x 3, speech is clear, no unilateral weakness or loss of sensation, coordination intact Musculoskeletal: No joint inflammation, muscle tenderness, FROM Skin: No acute rashes or ulcers Extremities: No clubbing, cyanosis, edema
[2018-06-20] MEDS ORDERED: POTASSIUM CHLORIDE 20 MEQ TABCR PO STA ×2 (05:28→13:23)
[2018-06-20] MEDS ORDERED: ACETAMINOPHEN 325 MG TAB PO PRN (05:38)
[2018-06-20] MEDS ORDERED: TRAMADOL HCL 50 MG TABLET PO PRN (05:50)
[2018-06-20] MEDS ORDERED: CARBOHYDRATES FOR HYPOGLYCEMIA PO PRN ×2 (06:00→18:16)
[2018-06-20] MEDS ORDERED: GLUCOSE 40% GEL 15 GM TUBE PO PRN ×2 (06:00→18:16)
[2018-06-20] MEDS ORDERED: GLUCAGON FOR INJ 1 MG VIAL IM PRN (06:00)
[2018-06-20] MEDS ORDERED: DEXTROSE 50% 50 ML SYRINGE IV PRN ×2 (06:00→18:16)
[2018-06-20] MEDS ORDERED: GLUCOSE 10 TABS/TUBE PO PRN ×2 (06:00→18:16)
[2018-06-20] MEDS ORDERED: MAGNESIUM SULFATE / D5W 1 GM/100 ML BAG IV ONE (06:00)
--- NOTE | 2018-06-20 06:39 | XRay Report ---
XR chest 1V portable HISTORY: 63 years-old Male Dyspnea acute shortness of breath with weakness COMPARISON: Chest radiograph 08/18/2017 TECHNIQUE: Portable AP view of the chest FINDINGS: Cardiac silhouette is enlarged. No pneumothorax, pleural effusion, focal airspace consolidation or ov ert pulmonary edema. Degenerative changes of the shoulders and spine. Fusion hardware noted about the cervical spine. IMPRESSION: Cardiomegaly without acute process. The above report was generated using voice recognition software. It may contain grammatical, syntax o r spelling errors. Electronically signed by: Bonilla Orourke M.D. 06/20/2018 6:38 AM
[2018-06-20] MEDS: ASPIRIN 81 MG ECTAB PO SCH (07:23)
[2018-06-20] MEDS: CARVEDILOL 25 MG TAB PO SCH ×2 (07:23→21:34)
[2018-06-20] MEDS: ALLOPURINOL 100 MG TAB PO SCH (07:23)
[2018-06-20] MEDS: ISOSORBIDE MONO EXTENDED REL 60 MG TABCR PO SCH (07:23)
[2018-06-20] MEDS: HEPARIN SOD 5,000 UNIT/0.5 ML VIAL SQ SCH ×3 (07:25→21:35)
[2018-06-20] MEDS ORDERED: FUROSEMIDE 80 MG in SYRINGE 0 ML IV SCH (08:00)
--- NOTE | 2018-06-20 08:00 | Family Medicine Progress Note ---
Date of Service June 20, 2018 Assessment & Plan (1) CHF (congestive heart failure): Mr. Ceron is a 62 year old male with a past medical history of diastolic CHF, HPL, HTN, DMII, CAD, obese, gout, MARISA who presented to [facility] w/weight gain, SOB with exertion and some chest tightness over the past week. He states that his abdomen feels distended which is where he tends to accumulate fluid. He denies a productive cough, n/v or fevers. He has recently struggled with his volume status and had been switched from Lasix to Torsemide and then back to Lasix with Metolazone. Shortness of breath/abdominal distention - cardiology consulted, thank you for recommendations -> examination and labs not consistent with a CHF exacerbation -pt has a history of diastolic CHF w/overall normal LV systolic function -hx of heart cath 2 years ago which was reportedly normal - patient seems to have these symptoms frequently, where he states fluid builds up in his abdomen and he subsequently becomes short of breath, which improves with diuresis. He states he has been taking extra Lasix and metolazone in the outpatient setting w/out good results - initially placed on 80mg IV Lasix q8h -> transitioned to BID. Patient reports improved symptoms with diuresis this AM - symptoms are subjective -> pt has not had new oxygen demand - per cardiology, will d/c on 80mg PO Lasix BID. - contributing factors to SOB include moderate MARISA w/possible pulmonary hypertension. Alpha 1 antitrypsin is listed on his [employer] problem list but it appears his testing for this was negative, and the patient does not know anything about this - pt has seen pulmonology in the past (2017) and had normal PFTs -consider outpatient stress test given pt describes chest pain and SOB on exertion, relieved by rest HTN - continue carvedilol, hydralazine and isosorbide mononitrate Acute on chronic CKD stage 3 - pt follows w/Dr. Gasca, has a baseline creatinine of 1.9 - Creatinine 2.51 here, continue to trend DM II - placed on an ISS - pt is a poorly controlled diabetic w/HbA1c of 8.1% - Lantus 5 units QPM ordered Gout -CrCl 35, can continue current dose of allopurinol, but will have to decrease it if his kidney function continues to worsen - monitor for flare up given aggressive diuresis puts him at risk Hypokalemia -potassium 3.1 today, replenish as needed w/aggressive diuresis MARISA -CPAP ordered Code status: FULL DVT Prophylaxis: heparin SQ Disposition: anticipate d/c tomorrow Supervising Physician Co-Signing Physician Notes Attending attestation Pt seen and examined in concert with Dr. Levin. In agreement with the documented findings as noted in the resident documentation with any exceptions or additions as noted here. Improved shortness of breath at rest with decreased subjective abdominal swelling and pressure. On examination, S1/S2 nl RRR no MCG. decreased BS at bilateral bases. Abd NT/ND BS+ve without significant distention or ascites appreciated SOB w/ abd distention - improved with diuresis, though would benefit from further evaluation in follow up for underlying pulmonary or similar cause STEVEN on CKD III - potentially congestion related - trend with diuresis DMII, uncontrolled - basal bolus, would benefit from increased control on discharge and DM education. Else see resident documentation as noted. Subjective See Dr. Kimble's H&P for details on history and physical exam. Physical Exam Vital Signs (Past 24 Hours): Last Vital Signs Temp 36.8 C 06/20/18 07:06 Pulse 76 06/20/18 07:06 Resp 19 06/20/18 07:06 BP 136/80 06/20/18 07:06 Pulse Ox 94 06/20/18 07:06 Constitutional: WD/WN, vitals as above + morbidly obese, cooperative and comfortable Respiratory: normal respiratory effort, lungs clear to auscultation Gastrointestinal (Abdomen): Inspection/Auscultation: + abdomen distended Percussion/Palpation: abdomen soft; abdomen nontender, no guarding and abdomen not rigid Skin: no rashes, warm and dry Psychiatric: A+Ox3, euthymic affect Results & Data Laboratory Results Laboratory Results - last 24 hr 06/19/18 06/19/18 06/19/18 23:47 23:47 23:47 WBC 6.58 RBC 4.94 Hgb 14.5 Hct 40.6 L MCV 82.2 MCH 29.4 MCHC 35.7 RDW Std Deviation 43.5 RDW Coeff of Junito 14.7 H Plt Count 150 MPV 10.1 Immature Gran % (Auto) 0.2 Neut % (Auto) 65.6 Lymph % (Auto) 24.3 [place] % (Auto) 7.3 Eos % (Auto) 2.4 Baso % (Auto) 0.2 Immature Gran # (Auto) 0.01 Neut # (Auto) 4.32 Lymph # (Auto) 1.60 [place] # (Auto) 0.48 Eos # (Auto) 0.16 Baso # (Auto) 0.01 PT 10.2 INR 1.0 APTT 22.5 PTT Ratio 0.8 Sodium 134 L Potassium 3.2 L Chloride 94 L Carbon Dioxide 32 Anion Gap 8.0 BUN 43 H Creatinine 2.54 H Est Cr Clr Drug Dosing 35.0 Est GFR ( Amer) 30.4 Est GFR (Non-Af Amer) 26.2 BUN/Creatinine Ratio 17.1 Glucose 348 H POC Glucose Calcium 8.5 Magnesium 1.9 Total Bilirubin 1.2 H AST 21 ALT 23 Alkaline Phosphatase 123 H Troponin I < 0.015 NT-Pro-B Natriuret Pep 54 Total Protein 7.8 Albumin 3.7 Globulin 4.1 H Albumin/Globulin Ratio 0.9 Beta-Hydroxybutyric Acd 0.86 Urine Color Urine Appearance Urine pH Ur Specific Ione Urine Protein Urine Glucose (UA) Urine Ketones Urine Blood Urine Nitrite Urine Bilirubin Urine Urobilinogen Ur Leukocyte Esterase 06/20/18 06/20/18 06/20/18 00:33 05:59 07:23 WBC RBC Hgb Hct MCV MCH MCHC RDW Std Deviation RDW Coeff of [place] Plt Count MPV Immature Gran % (Auto) Neut % (Auto) Lymph % (Auto) [place] % (Auto) Eos % (Auto) Baso % (Auto) Immature Gran # (Auto) Neut # (Auto) Lymph # (Auto) [place] # (Auto) Eos # (Auto) Baso # (Auto) PT INR APTT PTT Ratio Sodium Potassium Chloride Carbon Dioxide Anion Gap BUN Creatinine Est Cr Clr Drug Dosing Est GFR ( Amer) Est GFR (Non-Af Amer) BUN/Creatinine Ratio Glucose POC Glucose 287 H 263 H Calcium Magnesium Total Bilirubin AST ALT Alkaline Phosphatase Troponin I NT-Pro-B Natriuret Pep Total Protein Albumin Globulin Albumin/Globulin Ratio Beta-Hydroxybutyric Acd Urine Color Yellow Urine Appearance Clear Urine pH 6.0 Ur Specific [place]one 1.010 Urine Protein Negative Urine Glucose (UA) 1+ H Urine Ketones Negative Urine Blood Negative Urine Nitrite Negative Urine Bilirubin Negative Urine Urobilinogen Negative Ur Leukocyte Esterase Negative 06/20/18 06/20/18 06/20/18 11:20 11:40 16:14 WBC RBC Hgb Hct MCV MCH MCHC RDW Std Deviation RDW Coeff of Junito Plt Count MPV Immature Gran % (Auto) Neut % (Auto) Lymph % (Auto) [place] % (Auto) Eos % (Auto) Baso % (Auto) Immature Gran # (Auto) Neut # (Auto) Lymph # (Auto) [place] # (Auto) Eos # (Auto) Baso # (Auto) PT INR APTT PTT Ratio Sodium 134 L Potassium 3.1 L Chloride 95 L Carbon Dioxide 33 H Anion Gap 7.0 BUN 46 H Creatinine 2.51 H Est Cr Clr Drug Dosing 35.1 Est GFR ( Amer) 30.8 Est GFR (Non-Af Amer) 26.6 BUN/Creatinine Ratio 18.4 Glucose 197 H POC Glucose 204 H 234 H Calcium 9.3 Magnesium Total Bilirubin AST ALT Alkaline Phosphatase Troponin I NT-Pro-B Natriuret Pep Total Protein Albumin Globulin Albumin/Globulin Ratio Beta-Hydroxybutyric Acd Urine Color Urine Appearance Urine pH Ur Specific Ione Urine Protein Urine Glucose (UA) Urine Ketones Urine Blood Urine Nitrite Urine Bilirubin Urine Urobilinogen Ur Leukocyte Esterase Medications Administered Current Inpatient Medications Acetaminophen (Tylenol) 650 mg PO Q4H PRN PRN Reason: Pain or Fever Stop: 07/20/18 05:37 Allopurinol (Zyloprim) 200 mg PO DAILY [facility] Stop: 07/20/18 08:59 Last Admin: 06/20/18 07:23 Dose: 200 mg Documented by: Aspirin (Ecotrin Ectab) 81 mg PO QAM ANGEL Stop: 07/20/18 08:59 Last Admin: 06/20/18 07:23 Dose: 81 mg Documented by: Carvedilol (Coreg) 25 mg PO BID [facility] Stop: 07/20/18 08:59 Last Admin: 06/20/18 07:23 Dose: 25 mg Documented by: Dextrose (Dextrose 50%) 25 - 50 ml IV UD PRN; Protocol PRN Reason: Hypoglycemia Protocol Stop: 07/20/18 05:59 Glucagon (Glucagen) 1 mg IM UD PRN; Protocol PRN Reason: Hypoglycemia Protocol Stop: 07/20/18 05:59 Glucose (Glucose 40%) 15 - 30 gm PO UD PRN; Protocol PRN Reason: Hypoglycemia Protocol Stop: 07/20/18 05:59 Glucose (Dex4 Glucose) 4 - 8 tabs PO UD PRN; Protocol PRN Reason: Hypoglycemia Protocol Stop: 07/20/18 05:59 Heparin Sodium (Porcine) (Heparin Sodium (Porcine)) 5,000 units SQ Q8 ANGEL Stop: 07/20/18 05:59 Last Admin: 06/20/18 13:58 Dose: Not Given Documented by: Hydralazine HCl (Apresoline) 25 mg PO BID ANGEL Stop: 07/20/18 08:59 Last Admin: 06/20/18 07:23 Dose: 25 mg Documented by: Furosemide 80 mg/ Syringe 8 mls @ 4 mls/min IV [id number] [facility] Stop: 07/20/18 16:59 Last Admin: 06/20/18 16:55 Dose: 4 mls/min Documented by: Insulin Aspart (Novolog Flexpen) 0 units SC ACHS ANGEL Stop: 07/20/18 07:29 Last Admin: 06/20/18 16:56 Dose: 10 units Documented by: Isosorbide Mononitrate (Imdur Extended Rel) 60 mg PO QAM [facility] Stop: 07/20/18 08:59 Last Admin: 06/20/18 07:23 Dose: 60 mg Documented by: Miscellaneous (Carbohydrates For Hypoglycemia) 15 - 30 gm PO UD PRN PRN Reason: Hypoglycemia Treatment Stop: 07/20/18 05:59 Tramadol HCl (Ultram) 50 mg PO TID PRN PRN Reason: Pain Stop: 07/20/18 05:49 Resident Activity Tracking Resident Involvement: Resident Care Provided Care Provided: Adult Hospital Medicine
[2018-06-20] MEDS: INSULIN ASPART 100 UNITS/ML 3 ML PEN SC SCH ×4 (08:19→21:37)
[2018-06-20 12:48] LABS: BUN Creatinine Ratio 18.4 (10-20); Calcium 9.3 mg/dl (8.5-10.1); Creatinine Clr Calc Pharmacy 35.1 ml/min; Est GFR (African American) 30.8; Est GFR (Non-African American) 26.6; Potassium 3.1 mmol/L (3.5-5.1)
--- NOTE | 2018-06-20 14:39 | Cardiology Consultation ---
Date of Consultation June 20, 2018 Assessment & Plan (1) Dyspnea: The patient presented to the emergency room as he felt that his abdominal bloating was not responding to an outpatient regimen of diuretics peer dyspnea that he describes seemed more positional in nature than generalized. However, he does likely have an element of some exertional dyspnea even at baseline. Do not believe the chest discomfort described was ischemic in nature. Cardiac biomarkers were normal at the time of admission. He did not have any documented arrhythmias to precipitate his fluid retention. Does have elevated blood pressures at times. His diabetes is obviously been uncontrolled. He did not endorse any dietary noncompliance or increased sodium intake. Neither his examination or objective evaluation suggest congestive heart failure. The lung examination is normal. He has no lower extremity edema. His N terminal proBNP was normal. Even his weight is about his baseline. Over the past 3 months may even have lost 2 pounds on our outpatient scale. Even his inpatient weight approach is that seen in the outpatient setting. However, he does seem to feel better after diuresis. He seems to accumulate fluid in the abdominal cavity and soft tissues causing some discomfort. He will have his electrolytes replaced. He will continue on b.i.d. dosing of intravenous Lasix. The time of discharge a regimen of 80 milligrams Lasix twice daily would seem reasonable. He will need to have electrolytes monitor closely and potassium supplementation prescribed accordingly. I do not believe he requires any further cardiac testing. Do not believe his current admission is related to any form of congestive heart failure. History of Present Illness Reason for Consultation: Dyspnea Requesting Physician: Lamin Attending Physician: Giovany Camacho MD History of Present Illness Patient is a 63-year-old gentleman with a history of a nonischemic cardiomyopathy recently resolved who has been experiencing symptoms of increasing abdominal girth and difficulty breathing. Patient has been concerned about progressive weight gain and edema. Generally speaking he controls edema and symptoms with diuretics. However, over the past few weeks his usual diuretic regimen has been insufficient in controlling his symptoms. He has had some abdominal fullness. He has some difficulty breathing when bending over primarily. He has also had some discomfort in the left lateral chest and rib area which she attributes to being more edematous. He generally does not have lower extremity edema. He has not had overt orthopnea. He has not been aware of any palpitations. He has not changed his diet recently. In general, he is an active individual who was accustomed to moderate activity. Recently he has had more difficulty due to some fatigue, the aforementioned bloating and difficulty breathing. He did endorse some symptoms of chest discomfort. However, this appears to be primarily localized to the left lower ribcage and is worse with certain positions and deep breathing. He has not reported swelling in his lower extremities. He denies any changes in his diet. He does measure his blood pressure routinely and has noted some mild elevations recently. Allergies Allergy/AdvReac Type Severity Reaction Status Date / Time Cg[place]-Nve-Dcr Reductase Allergy Intermediate Muscle pain Verified 06/20/18 0 1:49 Inhibitor Home Medications Home Medications Medication Instructions Recorded Confirmed Type aspirin [Aspir-81] 81 mg PO QAM 12/11/17 06/20/18 History carvedilol 25 mg PO BID 12/11/17 06/20/18 History hydralazine 25 mg PO BID 12/11/17 06/20/18 History isosorbide mononitrate 60 mg PO QAM 12/11/17 06/20/18 History allopurinol 200 mg PO DAILY 06/20/18 06/20/18 History diclofenac sodium 1 applic TOPICAL BID 06/20/18 06/20/18 History furosemide 40 mg PO TID 06/20/18 06/20/18 History insulin NPH and regular human 40 unit SUBCUT QAM 06/20/18 06/20/18 History [Novolin 70/30 U-100 Insulin] insulin NPH and regular human 60 unit SUBCUT QPM 06/20/18 06/20/18 History [Novolin 70/30 U-100 Insulin] torsemide 10 mg PO BID 06/20/18 06/20/18 History tramadol 50 - 100 mg PO TID PRN 06/20/18 06/20/18 History Patient History Medical History CHF (congestive heart failure) (Chronic) HTN (hypertension) (Chronic) Diabetes (Chronic) Kidney failure (Chronic) Fatty liver (Chronic) Acute on chronic renal failure Social History Preferred Language: Macedonian Communication Ability: Effective [employer] Offbearer Required: No Beliefs That Will Affect Care: None Current Living Situation: Spouse Other Information That Helps Us Care for You: No Feels Safe at Home: Yes Safety Concerns: Feels Safe At This Time Smoking Status: Never smoker Hx Alcohol Use: No Hx Substance Use: No Review of Systems Complete. Pertinent positives known history of present illness. No recent fevers or chills. Physical Exam Vital Signs (Past 24 Hours): Last Vital Signs Temp 36.9 C 06/20/18 12:13 Pulse 81 06/20/18 12:13 Resp 19 06/20/18 12:13 BP 136/82 06/20/18 12:13 Pulse Ox 94 06/20/18 12:13 Physical Exam: The patient is alert and oriented. Mood and affect appeared normal. He answered all questions appropriately. Obese HEENT: Pupils are equal and reactive to light and accommodation. Extraocular movements are intact. The sclerae are anicteric. Neuro: Cranial nerves intact Neck: Patient's neck is fat. He has palpable carotid pulses bilaterally withou t bruits on auscultation. There is no evidence of jugular venous distention. Although the neck is redundant. The thyroid is not enlarged. Lungs: Clear to auscultation bilaterally. He has good air movement without use of accessory muscles. No rales wheezes or rhonchi. Cardiac: Heart demonstrates a regular rate and rhythm. Normal S1 and S2. No murmurs on examination. Pulses: The patient has palpable radial pulses bilaterally that are equal in intensity Extremities: There was no evidence of hypoperfusion. There is no cyanosis or clubbing. There is no edema. Skin: I did not appreciate any rashes on examination today. Results & Data Laboratory Results Abnormal Lab Results 06/19/18 06/19/18 06/19/18 23:47 23:47 23:47 WBC 6.58 RBC 4.94 Hgb 14.5 Hct 40.6 L MCV 82.2 MCH 29.4 MCHC 35.7 RDW Std Deviation 43.5 RDW Coeff of [place] 14.7 H Plt Count 150 MPV 10.1 Immature Gran % (Auto) 0.2 Neut % (Auto) 65.6 Lymph % (Auto) 24.3 [place] % (Auto) 7.3 Eos % (Auto) 2.4 Baso % (Auto) 0.2 Immature Gran # (Auto) 0.01 Neut # (Auto) 4.32 Lymph # (Auto) 1.60 [place] # (Auto) 0.48 Eos # (Auto) 0.16 Baso # (Auto) 0.01 PT 10.2 INR 1.0 APTT 22.5 PTT Ratio 0.8 Sodium 134 L Potassium 3.2 L Chloride 94 L Carbon Dioxide 32 Anion Gap 8.0 BUN 43 H Creatinine 2.54 H Est Cr Clr Drug Dosing 35.0 Est GFR ( Amer) 30.4 Est GFR (Non-Af Amer) 26.2 BUN/Creatinine Ratio 17.1 Glucose 348 H POC Glucose Calcium 8.5 Magnesium 1.9 Total Bilirubin 1.2 H AST 21 ALT 23 Alkaline Phosphatase 123 H Troponin I < 0.015 NT-Pro-B Natriuret Pep 54 Total Protein 7.8 Albumin 3.7 Globulin 4.1 H Albumin/Globulin Ratio 0.9 Beta-Hydroxybutyric Acd 0.86 Urine Color Urine Appearance Urine pH Ur Specific [place] Urine Protein Urine Glucose (UA) Urine Ketones Urine Blood Urine Nitrite Urine Bilirubin Urine Urobilinogen Ur Leukocyte Esterase 06/20/18 06/20/18 06/20/18 00:33 05:59 07:23 WBC RBC Hgb Hct MCV MCH MCHC RDW Std Deviation RDW Coeff of [place] Plt Count MPV Immature Gran % (Auto) Neut % (Auto) Lymph % (Auto) [place] % (Auto) Eos % (Auto) Baso % (Auto) Immature Gran # (Auto) Neut # (Auto) Lymph # (Auto) [place] # (Auto) Eos # (Auto) Baso # (Auto) PT INR APTT PTT Ratio Sodium Potassium Chloride Carbon Dioxide Anion Gap BUN Creatinine Est Cr Clr Drug Dosing Est GFR ( Amer) Est GFR (Non-Af Amer) BUN/Creatinine Ratio Glucose POC Glucose 287 H 263 H Calcium Magnesium Total Bilirubin AST ALT Alkaline Phosphatase Troponin I NT-Pro-B Natriuret Pep Total Protein Albumin Globulin Albumin/Globulin Ratio Beta-Hydroxybutyric Acd Urine Color Yellow Urine Appearance Clear Urine pH 6.0 Ur Specific [place] 1.010 Urine Protein Negative Urine Glucose (UA) 1+ H Urine Ketones Negative Urine Blood Negative Urine Nitrite Negative Urine Bilirubin Negative Urine Urobilinogen Negative Ur Leukocyte Esterase Negative 06/20/18 06/20/18 11:20 11:40 WBC RBC Hgb Hct MCV MCH MCHC RDW Std Deviation RDW Coeff of [place] Plt Count MPV Immature Gran % (Auto) Neut % (Auto) Lymph % (Auto) [place] % (Auto) Eos % (Auto) Baso % (Auto) Immature Gran # (Auto) Neut # (Auto) Lymph # (Auto) [place] # (Auto) Eos # (Auto) Baso # (Auto) PT INR APTT PTT Ratio Sodium 134 L Potassium 3.1 L Chloride 95 L Carbon Dioxide 33 H Anion Gap 7.0 BUN 46 H Creatinine 2.51 H Est Cr Clr Drug Dosing 35.1 Est GFR ( Amer) 30.8 Est GFR (Non-Af Amer) 26.6 BUN/Creatinine Ratio 18.4 Glucose 197 H POC Glucose 204 H Calcium 9.3 Magnesium Total Bilirubin AST ALT Alkaline Phosphatase Troponin I NT-Pro-B Natriuret Pep Total Protein Albumin Globulin Albumin/Globulin Ratio Beta-Hydroxybutyric Acd Urine Color Urine Appearance Urine pH Ur Specific [place] Urine Protein Urine Glucose (UA) Urine Ketones Urine Blood Urine Nitrite Urine Bilirubin Urine Urobilinogen Ur Leukocyte Esterase Diagnostic Findings Chest x-ray obtained at the time admission did not reveal any acute cardiopulmonary process. There was cardiomegaly. Echocardiogram performed 05/2017 revealed preserved LV systolic function. Stage I diastolic dysfunction. ECG Additional Comments: Sinus rhythm
--- NOTE | 2018-06-20 15:27 | Emergency Department Note ---
Entered by Silas Andino acting as a scribe for ED Provider Note CHIEF COMPLAINT: Cardiac Assessment HISTORY OF PRESENT ILLNESS: The patient is a 63 year old male that presents to the ED with complaints of constant fluid retention for the past week. The patient states he has gained about 12-15 pounds during this time which has caused chest pains, shortness of breath and generalized weakness. He also has been lightheaded and had some back pain. He states most of the fluid is retained in her abdomen and the chest pain really started when the weight started to increase. He describes the pain as an intermittent cramping and notes that it sometimes onsets with exertion but only lasts a few minutes when it does. The patient is currently a CHF patient that takes Lasix daily and Metolazone when needed. After putting on some weight his Wage Analyst told him to double his Lasix dosage which he did but it did not make a difference. He also took a Metolazone yesterday and today with no help. The patient also mentioned that 4 years ago he was told that there was a 45% blockage in his heart. Pt denies LOC, headache, fevers, chills, diaphoresis, visual changes, neck pain, nausea, vomiting, abdominal pain, melena, hematochezia, urinary symptoms, numbness, lymphadenopathy, rash, or other complaints. REVIEW OF SYSTEMS: See HPI for pertinent positives and negatives. A total of ten systems were reviewed and were otherwise negative. PMHx/PSHx: CHF, HTN, Diabetes, Kidney failure, Cervical spine surgery, Wrist surgery, Dyspnea SOCIAL HISTORY: Patient lives at home. PHYSICAL EXAM: GENERAL: Awake, alert, well-appearing, in no distress HENT: Normocephalic, atraumatic. Oropharynx unremarkable. EYES: Normal conjunctiva. Sclera non-icteric. NECK: Inspection normal. Non-tender. Supple. No nuchal rigidity. FROM. No masses. RESPIRATORY: Scattered crackles. No wheezes. No rales. Normal respiratory effort. CARDIAC: Normal rate. Normal rhythm. No murmurs. No rubs. Extremities warm and well perfused. Pulses equal. No JVD. GI: Mildly distended. No tenderness to palpation. No rebound or guarding. No masses. RECTAL: Deferred. MUSCULOSKELETAL: Atraumatic. Chest examination reveals no tenderness. The back is symmetrical on inspection without obvious abnormality. There is no CVA te nderness to palpation. No joint edema. LOWER EXTREMITIES: Calves are equal size bilaterally and non-tender. No edema. No discoloration. NEURO: Normal sensorium. No sensory or motor deficits noted. SKIN: No rash or jaundice noted. EMERGENCY DEPARTMENT COURSE: 0015: The patient was evaluated in room A10, and a complete history and physical examination were performed. MEDICAL DECISION MAKING: Prior records/ancillary studies reviewed. The patient had a similar admission 1 year ago. He had about a 10-15 pound weight gain. He required IV diuresis for several days due to his renal insufficiency. Triage Nursing notes reviewed and agree them. Additional history obtained from the family. The patient's history was concerning for weight gain and shortness of breath. Differential diagnosis: Etiologies such as CHF, renal insufficiency, pneumonia, COPD, reactive airway disease, cardiac ischemia, pulmonary embolism, pneumothorax, musculoskeletal, infections, gastrointestinal, as well as others were entertained. Physical examination: As above. ER treatment provided: Monitoring IV Lasix On reassessment the patient felt better. Patient had some diuresis. Diagnostic interpretation by me: The electrocardiogram was negative for pathologic change. The labs revealed an unremarkable troponin and CBC. Coags negative. BNP negative. Creatinine has bumped up to 2.54. The patient is hyperglycemic. Imaging studies: Chest x-ray performed. No pneumonia. Cardiomegaly noted. Consultation: A consultation was placed the patient's motor electrician, Dr. Narciso Hurtado. The case was discussed. He noted that he has no way of performing IV diuresis in the outpatient setting. He notes that the patient may benefit from IV diuresis as well as discussion with nephrology from the inpatient side given his renal function. I did place a consultation with the hospitalist, Dr Kimble. The case was discussed and diagnostics were reviewed. The patient was evaluated in the ER for further treatment. IMPRESSION: Shortness of breath Fluid overload Renal insufficiency CHF PLAN: Admit The scribe's documentation has been prepared under my direction and personally reviewed by me in its entirety. I confirm that the note above accurately reflects all work, treatment, procedures, and medical decision making performed by me. Impression & Plan CHF (congestive heart failure), Acute on chronic renal failure Past Med/Surg History Medical History CHF (congestive heart failure) (Chronic) HTN (hypertension) (Chronic) Diabetes (Chronic) Kidney failure (Chronic) Fatty liver (Chronic) Acute on chronic renal failure Social History Preferred Language: Citizen Of [place] Communication Ability: Effective Informatics Developer Required: No Beliefs That Will Affect Care: None Current Living Situation: Spouse Other Information That Helps Us Care for You: No Feels Safe at Home: Yes Safety Concerns: Feels Safe At This Time Smoking Status: Never smoker Hx Alcohol Use: No Hx Substance Use: No Results & Data Vital Signs Vital Signs - 24 hr 06/19/18 23:27 06/19/18 23:47 06/19/18 23:48 Temperature 37 C Temperature Source Oral Sepsis Recent Fever Within 48 Hours No Sepsis Action Taken by Nursing No Action Required Pulse Rate 84 84 Pulse Rate [Apical] 83 Pulse Rate from SpO2 Sensor 84 Pulse Rhythm [Apical] Pulse Strength [Apical] Respiratory Rate 18 17 24 Respiratory Effort / Characteristics Spontaneous SOB on Exertion Respiratory Depth Normal Normal Respiratory Pattern Regular Blood Pressure 147/84 H 137/75 Blood Pressure [Left Arm] Blood Pressure [Right Arm] 137/75 Blood Pressure Mean 105 95 Blood Pressure Mean [Left Arm] Blood Pressure Mean [Right Arm] 95 Blood Pressure Position [Left Arm] Blood Pressure Position [Right Arm] Sitting Pulse Oximetry 97 94 95 Oxygen Delivery Method Room Air Room Air Room Air 06/20/18 00:01 06/20/18 00:34 06/20/18 01:01 Temperature Temperature Source Sepsis Recent Fever Within 48 Hours Sepsis Action Taken by Nursing Pulse Rate 81 85 81 Pulse Rate [Apical] Pulse Rate from SpO2 Sensor 81 81 Pulse Rhythm [Apical] Pulse Strength [Apical] Respiratory Rate 21 30 H 21 Respiratory Effort / Characteristics Respiratory Depth Respiratory Pattern Blood Pressure 128/70 138/72 Blood Pressure [Left Arm] Blood Pressure [Right Arm] Blood Pressure Mean 89 94 Blood Pressure Mean [Left Arm] Blood Pressure Mean [Right Arm] Blood Pressure Position [Left Arm] Blood Pressure Position [Right Arm] Pulse Oximetry 94 94 Oxygen Delivery Method Room Air Room Air 06/20/18 01:31 06/20/18 03:51 06/20/18 05:50 Temperature 37 C Temperature Source Oral Sepsis Recent Fever Within 48 Hours Sepsis Action Taken by Nursing Pulse Rate 80 Pulse Rate [Apical] 77 62 Pulse Rate from SpO2 Sensor 80 Pulse Rhythm [Apical] Regular Pulse Strength [Apical] Normal Respiratory Rate 18 18 20 Respiratory Effort / Characteristics Non-Labored SOB on Exertion Respiratory Depth Normal Respiratory Pattern Regular Blood Pressure 145/68 H Blood Pressure [Left Arm] Blood Pressure [Right Arm] 145/73 H 151/84 H Blood Pressure Mean 93 Blood Pressure Mean [Left Arm] Blood Pressure Mean [Right Arm] 97 106 Blood Pressure Position [Left Arm] Blood Pressure Position [Right Arm] Pulse Oximetry 91 96 96 Oxygen Delivery Method Room Air Room Air Room Air 06/20/18 06:22 06/20/18 07:06 06/20/18 10:16 Temperature 36.8 C Temperature Source Oral Sepsis Recent Fever Within 48 Hours Sepsis Action Taken by Nursing Pulse Rate 83 Pulse Rate [Apical] 76 Pulse Rate from SpO2 Sensor Pulse Rhythm [Apical] Pulse Strength [Apical] Normal Respiratory Rate 19 Respiratory Effort / Characteristics Respiratory Depth Respiratory Pattern Blood Pressure Blood Pressure [Left Arm] 136/80 Blood Pressure [Right Arm] Blood Pressure Mean Blood Pressure Mean [Left Arm] 98 Blood Pressure Mean [Right Arm] Blood Pressure Position [Left Arm] Sitting Blood Pressure Position [Right Arm] Pulse Oximetry 94 Oxygen Delivery Method Room Air 06/20/18 12:13 Temperature 36.9 C Temperature Source Oral Sepsis Recent Fever Within 48 Hours Sepsis Action Taken by Nursing Pulse Rate Pulse Rate [Apical] 81 Pulse Rate from SpO2 Sensor Pulse Rhythm [Apical] Pulse Strength [Apical] Respiratory Rate 19 Respiratory Effort / Characteristics Respiratory Depth Respiratory Pattern Blood Pressure Blood Pressure [Left Arm] 136/82 Blood Pressure [Right Arm] Blood Pressure Mean Blood Pressure Mean [Left Arm] 100 Blood Pressure Mean [Right Arm] Blood Pressure Position [Left Arm] Sitting Blood Pressure Position [Right Arm] Pulse Oximetry 94 Oxygen Delivery Method Room Air Home Medications Current Medication List: was personally reviewed by me Laboratory Data Attestation: I reviewed the patient's lab results. Result diagrams: 06/19/18 23:47 06/20/18 11:40 Lab Results 06/19/18 06/19/18 06/19/18 Range/Units 23:47 23:47 23:47 WBC 6.58 (4.8-10.8) K/uL RBC 4.94 (4.7-6.1) M/uL Hgb 14.5 (14.0-18.0) g/dL Hct 40.6 L (42-52) % MCV 82.2 (80-100) fL MCH 29.4 (25-34) pg MCHC 35.7 (32-36) g/dL RDW Std Deviation 43.5 (36.4-46.3) fL RDW Coeff of Junito 14.7 H (11.5-14.5) % Plt Count 150 (130-400) K/uL MPV 10.1 (7.4-10.4) fL Immature Gran % (Auto) 0.2 % Neut % (Auto) 65.6 % Lymph % (Auto) 24.3 % [place] % (Auto) 7.3 % Eos % (Auto) 2.4 % Baso % (Auto) 0.2 % Immature Gran # (Auto) 0.01 (0.00-0.02) K/uL Neut # (Auto) 4.32 (1.4-6.5) K/uL Lymph # (Auto) 1.60 (1.2-3.4) K/uL [place] # (Auto) 0.48 (0.11-0.59) K/uL Eos # (Auto) 0.16 (0-0.5) K/uL Baso # (Auto) 0.01 (0-0.2) K/uL PT 10.2 (9.0-12.0) Seconds INR 1.0 (0.9-1.1) APTT 22.5 (21.0-31.0) Seconds PTT Ratio 0.8 Sodium 134 L (136-145) mmol/L Potassium 3.2 L (3.5-5.1) mmol/L Chloride 94 L (98-107) mmol/L Carbon Dioxide 32 (21-32) mmol/L Anion Gap 8.0 (3-11) BUN 43 H (7-18) mg/dl Creatinine 2.54 H (0.6-1.4) mg/dl Est Cr Clr Drug Dosing 35.0 ml/min Est GFR ( Amer) 30.4 Est GFR (Non-Af Amer) 26.2 BUN/Creatinine Ratio 17.1 (10-20) Glucose 348 H (70-99) mg/dl POC Glucose (70-99) Calcium 8.5 (8.5-10.1) mg/dl Magnesium 1.9 (1.8-2.4) mg/dl Total Bilirubin 1.2 H (0.2-1) mg/dl AST 21 (15-37) U/L ALT 23 (12-78) U/L Alkaline Phosphatase 123 H (45-117) U/L Troponin I < 0.015 (0-0.045) ng/ml NT-Pro-B Natriuret Pep 54 (0-900) pg/ml Total Protein 7.8 (6.4-8.2) gm/dl Albumin 3.7 (3.4-5.0) gm/dl Globulin 4.1 H (2.5-4.0) gm/dl Albumin/Globulin Ratio 0.9 (0.9-2) Beta-Hydroxybutyric Acd 0.86 (0.2-2.81) mg/dl Urine Color Urine Appearance (Clear) Urine pH (4.5-7.5) Ur Specific [place] (1.000-1.030) Urine Protein (Negative) Urine Glucose (UA) (Negative) Urine Ketones (Negative) Urine Blood (Negative) Urine Nitrite (Negative) Urine Bilirubin (Negative) Urine Urobilinogen (Negative) Ur Leukocyte Esterase (Negative) 06/20/18 06/20/18 06/20/18 Range/Units 00:33 05:59 07:23 WBC (4.8-10.8) K/uL RBC (4.7-6.1) M/uL Hgb (14.0-18.0) g/dL Hct (42-52) % MCV (80-100) fL MCH (25-34) pg MCHC (32-36) g/dL RDW Std Deviation (36.4-46.3) fL RDW Coeff of Junito (11.5-14.5) % Plt Count (130-400) K/uL MPV (7.4-10.4) fL Immature Gran % (Auto) % Neut % (Auto) % Lymph % (Auto) % [place] % (Auto) % Eos % (Auto) % Baso % (Auto) % Immature Gran # (Auto) (0.00-0.02) K/uL Neut # (Auto) (1.4-6.5) K/uL Lymph # (Auto) (1.2-3.4) K/uL [place] # (Auto) (0.11-0.59) K/uL Eos # (Auto) (0-0.5) K/uL Baso # (Auto) (0-0.2) K/uL PT (9.0-12.0) Seconds INR (0.9-1.1) APTT (21.0-31.0) Seconds PTT Ratio Sodium (136-145) mmol/L Potassium (3.5-5.1) mmol/L Chloride (98-107) mmol/L Carbon Dioxide (21-32) mmol/L Anion Gap (3-11) BUN (7-18) mg/dl Creatinine (0.6-1.4) mg/dl Est Cr Clr Drug Dosing ml/min Est GFR ( Amer) Est GFR (Non-Af Amer) BUN/Creatinine Ratio (10-20) Glucose (70-99) mg/dl POC Glucose 287 H 263 H (70-99) Calcium (8.5-10.1) mg/dl Magnesium (1.8-2.4) mg/dl Total Bilirubin (0.2-1) mg/dl AST (15-37) U/L ALT (12-78) U/L Alkaline Phosphatase (45-117) U/L Troponin I (0-0.045) ng/ml NT-Pro-B Natriuret Pep (0-900) pg/ml Total Protein (6.4-8.2) gm/dl Albumin (3.4-5.0) gm/dl Globulin (2.5-4.0) gm/dl Albumin/Globulin Ratio (0.9-2) Beta-Hydroxybutyric Acd (0.2-2.81) mg/dl Urine Color Yellow Urine Appearance Clear (Clear) Urine pH 6.0 (4.5-7.5) Ur Specific [place] 1.010 (1.000-1.030) Urine Protein Negative (Negative) Urine Glucose (UA) 1+ H (Negative) Urine Ketones Negative (Negative) Urine Blood Negative (Negative) Urine Nitrite Negative (Negative) Urine Bilirubin Negative (Negative) Urine Urobilinogen Negative (Negative) Ur Leukocyte Esterase Negative (Negative) 06/20/18 06/20/18 Range/Units 11:20 11:40 WBC (4.8-10.8) K/uL RBC (4.7-6.1) M/uL Hgb (14.0-18.0) g/dL Hct (42-52) % MCV (80-100) fL MCH (25-34) pg MCHC (32-36) g/dL RDW Std Deviation (36.4-46.3) fL RDW Coeff of Junito (11.5-14.5) % Plt Count (130-400) K/uL MPV (7.4-10.4) fL Immature Gran % (Auto) % Neut % (Auto) % Lymph % (Auto) % [place] % (Auto) % Eos % (Auto) % Baso % (Auto) % Immature Gran # (Auto) (0.00-0.02) K/uL Neut # (Auto) (1.4-6.5) K/uL Lymph # (Auto) (1.2-3.4) K/uL [place] # (Auto) (0.11-0.59) K/uL Eos # (Auto) (0-0.5) K/uL Baso # (Auto) (0-0.2) K/uL PT (9.0-12.0) Seconds INR (0.9-1.1) APTT (21.0-31.0) Seconds PTT Ratio Sodium 134 L (136-145) mmol/L Potassium 3.1 L (3.5-5.1) mmol/L Chloride 95 L (98-107) mmol/L Carbon Dioxide 33 H (21-32) mmol/L Anion Gap 7.0 (3-11) BUN 46 H (7-18) mg/dl Creatinine 2.51 H (0.6-1.4) mg/dl Est Cr Clr Drug Dosing 35.1 ml/min Est GFR ( Amer) 30.8 Est GFR (Non-Af Amer) 26.6 BUN/Creatinine Ratio 18.4 (10-20) Glucose 197 H (70-99) mg/dl POC Glucose 204 H (70-99) Calcium 9.3 (8.5-10.1) mg/dl Magnesium (1.8-2.4) mg/dl Total Bilirubin (0.2-1) mg/dl AST (15-37) U/L ALT (12-78) U/L Alkaline Phosphatase (45-117) U/L Troponin I (0-0.045) ng/ml NT-Pro-B Natriuret Pep (0-900) pg/ml Total Protein (6.4-8.2) gm/dl Albumin (3.4-5.0) gm/dl Globulin (2.5-4.0) gm/dl Albumin/Globulin Ratio (0.9-2) Beta-Hydroxybutyric Acd (0.2-2.81) mg/dl Urine Color Urine Appearance (Clear) Urine pH (4.5-7.5) Ur Specific [place] (1.000-1.030) Urine Protein (Negative) Urine Glucose (UA) (Negative) Urine Ketones (Negative) Urine Blood (Negative) Urine Nitrite (Negative) Urine Bilirubin (Negative) Urine Urobilinogen (Negative) Ur Leukocyte Esterase (Negative) Administered Medications Allopurinol (Zyloprim) 200 mg PO DAILY ANGEL Stop: 07/20/18 08:59 Last Admin: 06/20/18 07:23 Dose: 200 mg Documented by: [id number] Aspirin (Ecotrin Ectab) 81 mg PO QAM ANGEL Stop: 07/20/18 08:59 Last Admin: 06/20/18 07:23 Dose: 81 mg Documented by: [id number] Carvedilol (Coreg) 25 mg PO BID [facility] Stop: 07/20/18 08:59 Last Admin: 06/20/18 07:23 Dose: 25 mg Documented by: [id number] Heparin Sodium (Porcine) (Heparin Sodium (Porcine)) 5,000 units SQ Q8 ANGEL Stop: 07/20/18 05:59 Last Admin: 06/20/18 13:58 Dose: Not Given Documented by: [id number] Admin: 06/20/18 07:25 Dose: Not Given Documented by: [id number] Hydralazine HCl (Apresoline) 25 mg PO BID [facility] Stop: 07/20/18 08:59 Last Admin: 06/20/18 07:23 Dose: 25 mg Documented by: [id number] Furosemide 80 mg/ Syringe 8 mls @ 4 mls/min IV Q8H ANGEL Stop: 07/20/18 07:59 Last Admin: 06/20/18 07:22 Dose: 4 mls/min Documented by: [id number] Insulin Aspart (Novolog Flexpen) 0 units SC ACHS ANGEL Stop: 07/20/18 07:29 Last Admin: 06/20/18 11:54 Dose: 9 units Documented by: [id number] Cosigned by: [id number] Admin: 06/20/18 08:19 Dose: 10 units Documented by: [id number] Cosigned by: [id number] Isosorbide Mononitrate (Imdur Extended Rel) 60 mg PO QAM ANGEL Stop: 07/20/18 08:59 Last Admin: 06/20/18 07:23 Dose: 60 mg Documented by: [id number] Discontinued Medications Furosemide (Lasix) Confirm Administered Dose 80 mg IV .STK-MED ONE Stop: 06/20/18 02:34 Last Admin: 06/20/18 07:24 Dose: Not Given Documented by: [id number] Magnesium Sulfate/Dextrose (Magnesium Sulfate / D5w) 1 gm in 100 mls @ 100 mls/hr IV ONE ONE Stop: 06/20/18 06:59 Last Infusion: 06/20/18 08:25 Dose: 0 mls/hr Documented by: [id number] Admin: 06/20/18 07:24 Dose: 100 mls/hr Documented by: [id number] Potassium Chloride (Klor-Con M20) 20 meq PO NOW STA Stop: 06/20/18 05:29 Last Admin: 06/20/18 07:22 Dose: 20 meq Documented by: [id number] Potassium Chloride (Klor-Con M20) 80 meq PO NOW STA Stop: 06/20/18 13:24 Last Admin: 06/20/18 13:53 Dose: 80 meq Documented by: [id number] Imaging Data Attestation: I personally reviewed and interpreted this imaging study as follows: My Impression: CXR 1V Cardiomegaly noted. Mild pulmonary edema but no pneumonia, pneumothorax, or free air. ECG Data Attestation: I personally reviewed and interpreted this ECG as follows: Indication: SOB/dyspnea Rate (beats per minute): 80 Rhythm: normal sinus Findings: + other (Non-specific intraventricular block ); no PAC, no PVC, no ST depression and no ST elevation Blood Pressure Blood Pressure Findings: Normal blood pressure Discharge Plan Visit Data *Final* Discharge Date/Time: 06/20/18 05:18 Chief Complaint: Cardiac Assessment Stated Complaint: HX-CHF,VERY BLOATED,CHEST DISCOMFORT,KIDNEY DISEAS ED Provider: Daniel Batista Discharge Problem: CHF (congestive heart failure), Acute on chronic renal failure Patient Disposition: Admitted As Inpatient Discharge Instructions Interventions: ED Discharge Assessment Last Done: 06/20/18 05:18 The scribe's documentation has been prepared under my direction and personally reviewed by me in its entirety. I confirm that the note above accurately reflects all work, treatment, procedures, and medical decision making performed by me.
[2018-06-20] MEDS: FUROSEMIDE 80 MG in SYRINGE 0 ML IV SCH (16:55)
[2018-06-20] MEDS ORDERED: GLUCAGON FOR INJ 1 MG VIAL SQ PRN (18:16)
[2018-06-20] MEDS ORDERED: INSULIN GLARGINE SOLOSTAR 100 UNITS/ML 3 ML PEN SC SCH ×2 (21:00→21:30)
[2018-06-21] MEDS: HEPARIN SOD 5,000 UNIT/0.5 ML VIAL SQ SCH ×3 (05:59→21:18)
[2018-06-21 06:43] LABS: BUN Creatinine Ratio 19.6 (10-20); Calcium 8.7 mg/dl (8.5-10.1); Est GFR (African American) 27.8; Potassium 3.2 mmol/L (3.5-5.1)
[2018-06-21] MEDS: ASPIRIN 81 MG ECTAB PO SCH (07:51)
[2018-06-21] MEDS: ISOSORBIDE MONO EXTENDED REL 60 MG TABCR PO SCH (07:51)
[2018-06-21] MEDS: CARVEDILOL 25 MG TAB PO SCH ×2 (07:51→20:40)
[2018-06-21] MEDS: ALLOPURINOL 100 MG TAB PO SCH (07:52)
[2018-06-21] MEDS: INSULIN ASPART 100 UNITS/ML 3 ML PEN SC SCH ×4 (08:58→20:41)
[2018-06-21] MEDS: FUROSEMIDE 80 MG in SYRINGE 0 ML IV SCH (09:00)
[2018-06-21] MEDS ORDERED: PHARMACY GLYCEMIC MGMT CONSULT PRN (14:52)
[2018-06-21] MEDS ORDERED: POTASSIUM CHLORIDE 10 MEQ TABCR PO STA (15:08)
--- NOTE | 2018-06-21 16:01 | Pharmacy Report ---
Glycemic Control Consultation - Date of Service June 21, 2018 - Scope Scope: Glycemic Pharmacist consulted by Dr Wells on 06-21-18 for glycemic control and to write orders per [facility] inpatient glycemic control protocol - Objective Weight: 110.3 kg Accuchecks BSG (last 24hrs): 06/20/18 06/20/18 06/21/18 16:14 20:10 00:04 Glucose POC Glucose 234 H 329 H 254 H 06/21/18 06/21/18 05:46 07:12 Glucose 270 H POC Glucose 273 H Laboratory Data (last 24hrs): 06/21/18 05:46 Potassium 3.2 L Carbon Dioxide 31 Anion Gap 7.0 Creatinine 2.73 H Est Cr Clr Drug Dosing 32.0 - Recent Pertinent Medications Outpatient Anti-diabetic Regimen: * Novolin 70/30 - 40 units in AM and 60 units in PM * A1c = 8.1 % 06/19/18 The patient is currently receiving: * Basal insulin: Lantus 15 units QPM * Correctional Insulin: Novolog Correction per scale ACHS Goal Range: Low 120 mg/dL - High 160 mg/dL Correction Factor: 20 mg/dL/unit * Prandial insulin: Per carb ratio of 1 unit per 10 grams CHO consumed * Risk Factors for Insulin Resistance: * Diet: T2DM - Assessment & Plan Assessment & Plan: ASSESSMENT: * Patient admitted with CHF exacerbation. PMHx significant for Dm2, gout, CHF, hld, CHF, htn * Pharmacy consulted for glycemic management - patient received 53 units of insulin yesterday, of which 15 units were basal insulin * Fasting this am elevated at 270 mg/dL - plan to increase Lantus today with dinner as patient likely basal deficient. Takes 100 units of insulin at home, plan to split 50/50 with slight reduction for STEVEN, so 40 units with dinner of Lantus * BSGs yesterday all elevated 204-234-329 mg/dL ; lunchtime BSG 348 mg/dL - will tighten both CF/CR for dinner and add overnight checks PLAN FOR INPATIENT GLYCEMIC CONTROL: * Basal insulin * Lantus 40 units x 1 now (stress 2/about half of outpatient insulin needs) * Bolus insulin - tighten * NovoLog per scale ACHS or Q6hrs while NPO * Goal Range: Low 110 mg/dL - High 140 mg/dL * Correction Factor: 15 mg/dL/unit * Nutritional / Prandial insulin per carb ratio of 1 unit per 6 grams CHO consumed * Please note that the plan above was derived based on current level of insulin resistance and hospital stress. These recommendations are appropriate for inpatient admission only. Plan of care upon discharge will need to be reassessed to avoid potential outpatient hypo/hyperglycemia. Thank you.
[2018-06-21] MEDS ORDERED: INSULIN GLARGINE SOLOSTAR 100 UNITS/ML 3 ML PEN SC ONE (16:30)
--- NOTE | 2018-06-21 16:43 | Family Medicine Progress Note ---
Date of Service June 21, 2018 Assessment & Plan (1) CHF (congestive heart failure): Mr. Ceron is a 62 year old male with a past medical history of diastolic CHF, HPL, HTN, DMII, CAD, obese, gout, MARISA who presented to [facility] w/weight gain, SOB with exertion and some chest tightness over the past week. On presentation he complained of abdominal distension 2/2 fluid accumulation. He denies a productive cough, n/v or fevers. He follows with Dr. Gasca of nephrology and has recently struggled with his volume status and had been switched from Lasix to Torsemide and then back to Lasix with Metolazone. Shortness of breath/abdominal distention - No clear etiology at this time --> Patient states he has history of MARISA and has not been using his CPAP over the last several months due to multiple night time awakenings with a sore throat despite using a humidifier with his CPAP --> Some element of pulmonary hypertension may be contributing as well - CXR: No cardiopulmonary abnormalities - Cardiology Consult --> Do not think CHF is contributing to his SOB considering normal BNP and CXR - History of diastolic CHF w/overall normal LV systolic function --> Repeat ECHO ordered - Currently maintaining adequate SpO2 on RA - Patient mentioned 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 of asbestos 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 for which he followed with pulm in the past - Normal PFTs in 2017 with [facility] - Hx of heart cath 2 years ago which showed 40% obstruction and no stent placement at that time - Initially placed on 80mg IV Lasix q8h -> transitioned to BID --> now on home Lasix 80mg PO BID as per cardiology recommendations - Consider outpatient stress test given subjective chest pain and SOB on exertion, relieved by rest HTN - Continue home carvedilol, hydralazine and isosorbide mononitrate Acute on chronic CKD stage 3 - Baseline Creatinine of 1.9 - Creatinine 2.73 today - Daily BMP DM II - Poor control as inpatient with Lantus + ISS --> Glycemic Consult placed - HbA1c of 8.1 Gout - Continue home Allopurinol --> Monitor Creatinine clearance because if continues do decline may need to adjust dose Hypokalemia - Potassium 3.2 - 40meq PO Potassium - Daily BMP MARISA - CPAP ordered - Look at ECHO to evaluate for pulmonary hypertension Code status: FULL DVT Prophylaxis: heparin SQ Supervising Physician Co-Signing Physician Notes ATTENDING NOTE I saw the patient concurrent with the resident physician and confirmed zuniga portions of the history and physical exam. I agree with the impression and plan as noted above. It seems the patient's dyspnea has improved but he still complains of generalized fatigue. While he feels better post diuresis, it is noted that his chest x-ray was normal in terms of failure and his BNP was also normal; the patient notes that most of his edema is abdominal though he does endorse some dyspnea with a "cough" that he equates with heart failure. The patient does state that he saw gastroenterology within the last year or so for a workup into his symptoms; it does not appear as if he has any symptoms consistent with cirrhosis nor any history suggesting that he is at higher risk. Of note, he has been previously diagnosed with obstructive sleep apnea but he has not been wearing his CPAP for the last 2-3 months due to side effects (dry throat). EXAM Upon examination he is pleasant alert. He is seated at the edge of the bed eating his lunch. Neck is obese, somewhat Pickwickian stature. Heart regular rate and rhythm. Lungs are clear throughout. The abdomen is obese but nontender. No ascites are noted. Extremities with trace edema. IMPRESSION AND PLAN SOB w/ ABD distention -symptomatically improved with diuresis; cardiology input reviewed and appreciated Fatigue, obstructive sleep apnea with CPAP noncompliance -I suggested to him that these 2 may be related; he may also have an element of pulmonary hyperten viola secondary to untreated obstructive sleep apnea. STEVEN on CKD III -monitor DMII, uncontrolled - basal bolus, would benefit from increased control on discharge and DM education. Subjective Patient states this morning that his swelling has improved although he continues to have shortness of breath with ambulation at this time. He denies any chest pain or palpitations. He also appreciates that he has not been using his CPAP over the last several months because he has been having an associated dry throat causing him to wake up multiple times throughout the night. Physical Exam Vital Signs (Past 24 Hours): Last Vital Signs Temp 36.4 C L 06/21/18 16:28 Pulse 80 06/21/18 16:28 Resp 18 06/21/18 16:28 BP 151/77 H 06/21/18 16:28 Pulse Ox 96 06/21/18 16:28 Constitutional: WD/WN, vitals as above well developed and well nourished; no acute distress Eyes: PERRL, conjunctivae normal, anicteric sclerae ENMT: external ear and nose normal, oropharynx normal Neck: trachea midline, no thyromegaly Respiratory: normal respiratory effort, lungs clear to auscultation Cardiovascular: RRR, no murmur, no edema 1+ lower extremity edema Gastrointestinal (Abdomen): normal bowel sounds, soft, nontender, no hepatosplenomegaly Musculoskeletal: no cyanosis or clubbing, extremities motor strength 5/5 Skin: no rashes, warm and dry Psychiatric: A+Ox3, euthymic affect Results & Data Laboratory Results Abnormal lab results 06/20/18 06/21/18 06/21/18 Range/Units 20:10 00:04 05:46 Sodium 133 L (136-145) mmol/L Potassium 3.2 L (3.5-5.1) mmol/L Chloride 95 L (98-107) mmol/L BUN 53 H (7-18) mg/dl Creatinine 2.73 H (0.6-1.4) mg/dl Glucose 270 H (70-99) mg/dl POC Glucose 329 H 254 H (70-99) 06/21/18 06/21/18 06/21/18 Range/Units 07:12 11:27 16:23 Sodium (136-145) mmol/L Potassium (3.5-5.1) mmol/L Chloride (98-107) mmol/L BUN (7-18) mg/dl Creatinine (0.6-1.4) mg/dl Glucose (70-99) mg/dl POC Glucose 273 H 348 H 237 H (70-99) Resident Activity Tracking Resident Involvement: Resident Care Provided Care Provided: Adult [facility] Medicine
[2018-06-21] MEDS ORDERED: FUROSEMIDE 40 MG TAB PO SCH (17:00)
[2018-06-21] MEDS ORDERED: FUROSEMIDE 80 MG TAB PO ONE (17:30)
--- NOTE | 2018-06-21 19:00 | Ultrasound Report ---
US liver HISTORY: 63 years-old Male Edema acute generalized abdominal pain with edema COMPARISON: CT abdomen and pelvis 08/18/2017 TECHNIQUE: Multiple real-time sonographic images of the abdominal right upper quadrant were obtained assessing grayscale appearance and color flow FINDINGS: Pancreas is mostly obscured by bowel gas with the imaged portions appearing unremarkable. The liver d emonstrates a minimally echogenic appearance without focal mass, evidence of cirrhosis or intrahepati c biliary ductal dilation. Trace gallbladder sludge without cholelithiasis, gallbladder wall thickeni ng or pericholecystic fluid. Sonographic Dwyer sign was not reported. Common bile duct is normal, 4 mm. Column of Isael about the right kidney. No right-sided hydronephrosis. IMPRESSION: 1. Trace gallbladder sludge without cholelithiasis or sonographic evidence of acute cholecystitis. 2. Suggestion of mild hepatic steatosis. 3. No biliary ductal dilation. The above report was generated using voice recognition software. It may contain grammatical, syntax o r spelling errors. Electronically signed by: Bonilla Orourke M.D. 06/21/2018 6:59 PM
[2018-06-22] MEDS: INSULIN ASPART 100 UNITS/ML 3 ML PEN SC SCH ×6 (00:13→20:52)
[2018-06-22 05:52] LABS: Eosinophils # (auto) 0.16 K/uL (0-0.5); Eosinophils % (auto) 2.6 %; Hematocrit (blood only) 41.9 % (42-52); Immature Granulocytes # (auto) 0.01 K/uL (0.00-0.02); Immature Granulocytes % (auto) 0.2 %; Lymphocytes # (auto) 1.55 K/uL (1.2-3.4); Lymphocytes % (auto) 24.8 %; Mean Corpuscular Hgb Conc 35.8 g/dL (32-36); Mean Corpuscular Volume 80.9 fL (80-100); Mean Platelet Volume 10.1 fL (7.4-10.4); Monocytes # (auto) 0.59 K/uL (0.11-0.59); Monocytes % (auto) 9.4 %; Neutrophils # (auto) 3.95 K/uL (1.4-6.5); Platelet Count 151 K/uL (130-400); RDW Coefficient of Variation 14.8 % (11.5-14.5); RDW Standard Deviation 42.8 fL (36.4-46.3); Red Blood Count 5.18 M/uL (4.7-6.1); White Blood Count 6.26 K/uL (4.8-10.8)
[2018-06-22] MEDS: HEPARIN SOD 5,000 UNIT/0.5 ML VIAL SQ SCH ×3 (06:03→20:06)
[2018-06-22 06:27] LABS: Creatinine Clr Calc Pharmacy 30.7 ml/min; Est GFR (African American) 26.4; Est GFR (Non-African American) 22.8; Potassium 2.8 mmol/L (3.5-5.1)
[2018-06-22] MEDS: ALLOPURINOL 100 MG TAB PO SCH (07:45)
[2018-06-22] MEDS: ISOSORBIDE MONO EXTENDED REL 60 MG TABCR PO SCH (07:46)
[2018-06-22] MEDS: CARVEDILOL 25 MG TAB PO SCH ×2 (07:46→20:06)
[2018-06-22] MEDS: ASPIRIN 81 MG ECTAB PO SCH (07:47)
[2018-06-22] MEDS ORDERED: INSULIN GLARGINE SOLOSTAR 100 UNITS/ML 3 ML PEN SC STA (08:19)
[2018-06-22] MEDS ORDERED: POTASSIUM CHLORIDE 20 MEQ TABCR PO STA (08:33)
[2018-06-22] MEDS ORDERED: FUROSEMIDE 80 MG TAB PO SCH (09:00)
[2018-06-22] MEDS: POTASSIUM CHLORIDE / WTR 10 MEQ/100 ML PLCT IV SCH ×2 (10:43→11:32)
--- NOTE | 2018-06-22 12:31 | Family Medicine Progress Note ---
Date of Service June 22, 2018 Assessment & Plan (1) CHF (congestive heart failure): 62 yo male w/ pMHx of dCHF, HLD, HTN, DMII, CAD, obese, gout, MARISA previously on CPAP who presented to [facility] w/weight gain, SOB with exertion and some chest tightness x 1 week. On presentation he complained of abdominal distension 2/2 fluid accumulation. He follows with Dr. Gasca of nephrology and has recently struggled with his volume status and had been switched from furosemide to torsemide and then back to furosemide with Metolazone. Shortness of breath/abdominal distention --CXR: No cardiopulmonary abnormalities. UA with evidence of microalbumin. --No clear etiology currently. Ddx: MARISA w/ CPAP non-compliance vs. pulmonary HTN vs. dCHF vs. asbestos exposure vs. renal etiology --Followed [facility] pulm in past for h/o asbestos exposure --> Normal PFTs in 2017 --Cardiology consulted given h/o diastolic CHF w/ normal LV systolic fxn. Cath 2 years ago showed 40% obstruction and no stent placement at that time --> ECHO 06/21 w/o significant change. Cardio does not think CHF is contributing to SOB considering normal BNP and CXR. --Currently maintaining adequate SpO2 on RA. Transitioned from 80mg IV furosemide q8h -> q12h --> now on home Lasix 80mg PO BID as per cardio recs. --Nephrology consulted, recs appreciated - Will hold furosemide for today given euvolemic status and bump in creatinine. Monitor I/O, daily weights, and BMP - Consider outpatient stress test given subjective chest pain and SOB on exertion, relieved by rest Hypokalemia Likely secondary to diuresis and insulin. Potassium 2.8 today - KCl 40meq PO daily + 2 K riders and additional 40meQ PO today - Daily BMP MARISA Recent non-compliance w/ CPAP x 3 mths (due to disrupted sleep from dry throat despite humidifier use) - Encourage CPAP use overnight DM II HbA1c of 8.1 - Poor control as inpatient with Lantus + ISS --> glycemic consult placed Acute on CKD stage 3 Baseline Creatinine of 1.9, creatinine 2.73 today - Daily BMP HTN - Continue home carvedilol, hydralazine and ISMN Gout - Continue home allopurinol --> Monitor Creatinine clearance because if continues do decline may need to adjust dose Chronic pain - Continue tramadol Diet: DM, HH, and added low salt restriction DVT Prophylaxis: heparin SQ Code status: FULL Supervising Physician Co-Signing Physician Notes ATTENDING NOTE I saw the patient concurrent with the resident physician and confirmed zuniga portions of the history and physical exam. I agree with the impression and plan as noted above. I also discussed the case with nephrology. The patient seems to be breathing better today. Overall he feels that the fluid retention is better; he still complains of fatigue. EXAM Upon examination he is pleasant alert. He is seated at the edge of the bed eating his lunch. Heart regular rate and rhythm. Lungs are clear throughout. The abdomen is obese but nontender. No ascites are noted. Extremities with trace edema. IMPRESSION AND PLAN SOB w/ ABD distention -symptomatically improved with diuresis; I suspect given his exam and lab work that he is euvolemic today Fatigue, obstructive sleep apnea with CPAP noncompliance -this may be the cause of his fatigue and is willing to retry CPAP Hypokalemia -replete and monitor STEVEN on CKD III -appreciate nephrology input today DMII, uncontrolled - basal bolus, would benefit from increased control on discharge and DM education. Subjective Patient lying in bed comfortably, denies concerns overnight. States that he has continued to note improvement in his abdominal swelling. He continues to have good urine output. He denies headaches, vision change, CP, SOB, leg swelling. He has not been using CPAP over night even while in hospital due to associated dry mouth. He states compliance with a low salt diet at home, although he later admits to occasionally cheating. He admits that his recent sugars are not always well controlled. He tests at home BID and states morning sugars are usually "130 to 140, sometimes higher." He is frustrated because he is unsure as to why he has multiple recurrences of abdominal swelling/distension when his diet is seemingly well managed. Review of Systems All systems reviewed & are unremarkable except as noted in HPI & below Physical Exam Vital Signs (Past 24 Hours): Last Vital Signs Temp 36.7 C 06/22/18 08:03 Pulse 84 06/22/18 08:03 Resp 20 06/22/18 08:03 BP 141/74 H 06/22/18 08:03 Pulse Ox 96 06/22/18 08:03 Constitutional: WD/WN, vitals as above + morbidly obese; no acute distress Eyes: + anicteric sclerae; no scleral abnormality ENMT: external ear and nose normal, oropharynx normal Neck: normal visual inspection and + thick neck Respiratory: normal respiratory effort, lungs clear to auscultation Cardiovascular: Rate/Rhythm: regular rate and regular rhythm Extremities: no calf tenderness and no pedal edema Gastrointestinal (Abdomen): normal bowel sounds, soft, nontender, no hepatosplenomegaly Inspection/Auscultation: abdomen not distended Percussion/Palpation: no guarding Musculoskeletal: Head/Neck/Chest: normocephalic and head atraumatic Extremities: extremities normal to inspection Skin: no rashes, warm and dry Neurologic: moves all extremities; no focal motor deficits Psychiatric: A+Ox3, euthymic affect Speech: normal rate/rhythm/volume of speech Results & Data Laboratory Results Laboratory Results - last 24 hr 06/21/18 06/22/18 06/22/18 20:28 00:06 04:02 WBC RBC Hgb Hct MCV MCH MCHC RDW Std Deviation RDW Coeff of Junito Plt Count MPV Immature Gran % (Auto) Neut % (Auto) Lymph % (Auto) [place] % (Auto) Eos % (Auto) Baso % (Auto) Immature Gran # (Auto) Neut # (Auto) Lymph # (Auto) [place] # (Auto) Eos # (Auto) Baso # (Auto) Sodium Potassium Chloride Carbon Dioxide Anion Gap BUN Creatinine Est Cr Clr Drug Dosing Est GFR ( Amer) Est GFR (Non-Af Amer) BUN/Creatinine Ratio Glucose POC Glucose 260 H 206 H 167 H Calcium 06/22/18 06/22/18 06/22/18 05:13 05:13 07:39 WBC 6.26 RBC 5.18 Hgb 15.0 Hct 41.9 L MCV 80.9 MCH 29.0 MCHC 35.8 RDW Std Deviation 42.8 RDW Coeff of Junito 14.8 H Plt Count 151 MPV 10.1 Immature Gran % (Auto) 0.2 Neut % (Auto) 63.0 Lymph % (Auto) 24.8 [place] % (Auto) 9.4 Eos % (Auto) 2.6 Baso % (Auto) 0.0 Immature Gran # (Auto) 0.01 Neut # (Auto) 3.95 Lymph # (Auto) 1.55 [place] # (Auto) 0.59 Eos # (Auto) 0.16 Baso # (Auto) 0.00 Sodium 136 Potassium 2.8 L Chloride 96 L Carbon Dioxide 32 Anion Gap 8.0 BUN 63 H Creatinine 2.85 H Est Cr Clr Drug Dosing 30.7 Est GFR ( Amer) 26.4 Est GFR (Non-Af Amer) 22.8 BUN/Creatinine Ratio 22.0 H Glucose 153 H POC Glucose 178 H Calcium 9.0 06/22/18 06/22/18 11:22 16:33 WBC RBC Hgb Hct MCV MCH MCHC RDW Std Deviation RDW Coeff of Junito Plt Count MPV Immature Gran % (Auto) Neut % (Auto) Lymph % (Auto) [place] % (Auto) Eos % (Auto) Baso % (Auto) Immature Gran # (Auto) Neut # (Auto) Lymph # (Auto) [place] # (Auto) Eos # (Auto) Baso # (Auto) Sodium Potassium Chloride Carbon Dioxide Anion Gap BUN Creatinine Est Cr Clr Drug Dosing Est GFR ( Amer) Est GFR (Non-Af Amer) BUN/Creatinine Ratio Glucose POC Glucose 341 H 137 H Calcium Resident Activity Tracking Resident Involvement: Resident Care Provided Care Provided: Adult Hospital Medicine
--- NOTE | 2018-06-22 13:31 | Nephrology Consultation ---
Date of Consultation June 22, 2018 Assessment & Plan (1) CHF (congestive heart failure): -- Clinically improved. -- Volume status acceptable at this time. -- Maintain even fluid balance. -- Hold furosemide. -- Low sodium diet. -- Document I/O's and daily weight. -- Encourage treatment of MARISA. (2) Acute on chronic renal failure: -- Baseline creatinine ~1.9-2.5 mg/dL. -- Non oliguric. -- Check UA/microscopy. -- Metabolic profile is otherwise acceptable. Patient is receiving potassium replacement for hypokalemia. -- Medications are appropriate for kidney function. -- Document I/O's and monitor metabolic profile daily. (3) Hypertension: -- BP acceptable on home medications. History of Present Illness Reason for Consultation: STEVEN/CKD Requesting Physician: Dylan Felix DO Attending Physician: Dylan Felix DO History of Present Illness Mr. Magdiel Ceron is a very pleasant 63-year-old male with obesity (BMI 40), hypertension, adult onset diabetes mellitus, MARISA, chronic diastolic CHF, asbestos exposure, and CKD. He has CKD stage III-IV with A2 proteinuria. CKD can be attributed to diabetes, hypertension, microvascular disease. Magdiel's volume status has been very difficult to manage. He has multiple episodes of STEVEN associated with diuretics, intravascular volume depletion, and cardiorenal syndrome. Baseline creatinine has been 1.9-2.5 mg/dL. Renal ultrasound previously normal. Magdiel presented to the Emergency Department at [facility] on June 20 with increasing fluid retention. Serum creatinine was 2.45 mg/dL. Creat inine had been 1.9 mg/dL earlier this month. He was admitted and started on IV furosemide. Magdiel initially received 80 mg Q 8 hours. This was transitioned to 80 mg BID. He is net negative at least 2.3 liters since admission. His weight is now back to baseline 242 lbs. Magdiel is breathing comfortably. TTE was reviewd. He feels well but unfortunately creatinine continues to rise. I saw Magdiel in the nephrology clinic earlier this month on June 04. He had evidence of fluid retention at that time. Furosemide was increased from 40 mg BID to 80 mg QAM and 40 mg QPM. Unfortunately abdominal edema and weight continued to rise. He saw Dr. Hurtado in the cardiology clinic on June 12 and furosemide was switched to Torsemide due to failure to respond to furosemide. Edema initially responded to the medication, unfortunately within 72 hours of his current hospitalization he started to experience increasing edema and abdominal distention. His weight increased 8 lbs from baseline 234 lbs. He presented to the ED because he was concerned. He has PRN daily metolazone to use at home but the medication did not provide significant benefit. Magdiel has not been compliant with CPAP. He stopped using the treatment several weeks ago due to dry mouth. He is agreeable to restarting therapy at this time. History of heart disease includes cardiac catheterization revealing non occlusive CAD in 2014. Magdiel presented to the ED at [facility] at the end of July with 10 lbs weight gain and significant abdominal discomfort and bloating. Volume status improved with IV furosemide followed by several days of increased dose at home. Weight stabilized at 242-244 lbs at that time. Serum creatinine improved to 2.2 mg/dL. Fenofibrate, valsartan and spironolactone were stopped due to STEVEN. Cramping in his arms and legs and generalized muscle pains improved after stopping Fenofibrate. Magdiel was hospitalized at [facility] from June 10-2017 with acute kidney injury and acute on chronic CHF. Creatinine peaked at 3.56 mg/dL on June 11. Clinical presentation consistent with congestive nephropathy related to volume overload (cardiorenal syndrome). Spironolactone and valsartan were held. Furosemide was switched to bumex 1 mg twice daily. TTE documented LVEF 45-50% with grade 1 diastolic dysfunction. Magdiel was readmitted from June 15-2017 with acute [address]. [address] scan was obtained. At the time of the study, there was not significant radiologic evidence of pancreatitis. Hepatic steatosis and splenomegaly were noted. Kidneys were normal in appearance. Symptoms improved within 36 hours. Evaluation for etiology of pancreatitis was notable for elevated triglycerides. Tricor was added. Magdiel was not able to tolerate statin therapy in the past. He does not consume alcohol. Allergies Allergy/AdvReac Type Severity Reaction Status Date / Time Dconvzz-Gwz-Pcb Reductase Allergy Intermediate Muscle pain Verified 06/20/18 01:49 Inhibitor Home Medications Home Medications Medication Instructions Recorded Confirmed Type aspirin [Aspir-81] 81 mg PO QAM 12/11/17 06/20/18 History carvedilol 25 mg PO BID 12/11/17 06/20/18 History hydralazine 25 mg PO BID 12/11/17 06/20/18 History isosorbide mononitrate 60 mg PO QAM 12/11/17 06/20/18 History allopurinol 200 mg PO DAILY 06/20/18 06/20/18 History diclofenac sodium 1 applic TOPICAL BID 06/20/18 06/20/18 History furosemide 40 mg PO TID 06/20/18 06/20/18 History insulin NPH and regular human 40 unit SUBCUT QAM 06/20/18 06/20/18 History [Novolin 70/30 U-100 Insulin] insulin NPH and regular human 60 unit SUBCUT QPM 06/20/18 06/20/18 History [Novolin 70/30 U-100 Insulin] torsemide 10 mg PO BID 06/20/18 06/20/18 History tramadol 50 - 100 mg PO TID PRN 06/20/18 06/20/18 History Patient History Medical History CHF (congestive heart failure) (Chronic) HTN (hypertension) (Chronic) Diabetes (Chronic) Kidney failure (Chronic) Fatty liver (Chronic) Acute on chronic renal failure (Acute) Social History Preferred Language: Arabic Communication Ability: Effective 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 Beliefs That Will Affect Care: None Current Living Situation: Spouse Other Information That Helps Us Care for You: No Feels Safe at Home: Yes Safety Concerns: Feels Safe At This Time Smoking Status: Never smoker Hx Alcohol Use: No Hx Substance Use: No Review of Systems Constitutional: as per Subjective / HPI; no fever and no chills Eyes: no problem reported Ear, Nose, Mouth, Throat: no problem reported Respiratory: no cough and no dyspnea Cardiovascular: as per Subjective / HPI and + edema; no chest pain and no palpitations Gastrointestinal: no abdominal pain and no problem reported Genitourinary (Male): no problem reported Musculoskeletal: no problem reported Integumentary: no problem reported Neurologic: no problem reported Psychiatric: no problem reported Physical Exam Vital Signs (Past 24 Hours): Last Vital Signs Temp 36.6 C 06/22/18 12:30 Pulse 78 06/22/18 12:30 Resp 20 06/22/18 12:30 BP 151/76 H 06/22/18 12:30 Pulse Ox 97 06/22/18 12:30 Constitutional: well developed and + morbidly obese; no acute distress Eyes: PERRL, conjunctivae normal, anicteric sclerae ENMT: external ear and nose normal, oropharynx normal Neck: normal visual inspection and + thick neck Respiratory: normal respiratory effort Auscultation: lungs clear to auscultation bilaterally; no diminished lung sounds and no rales Cardiovascular: Heart Sounds: normal S1 and normal S2; no gallop and no murmur Extremities: no edema Gastrointestinal (Abdomen): Inspection/Auscultation: + abdomen distended Percussion/Palpation: abdomen soft; abdomen nontender, no guarding and abdomen not rigid Musculoskeletal: Extremities: no cyanosis and no clubbing Skin: no rashes, warm and dry Neurologic: Motor/Sensory: no tremor and no asterixis Psychiatric: A+Ox3, euthymic affect Results & Data Laboratory Results Laboratory Results - last 24 hr 06/21/18 06/21/18 06/21/18 11:27 16:23 20:28 WBC RBC Hgb Hct MCV MCH MCHC RDW Std Deviation RDW Coeff of Junito Plt Count MPV Immature Gran % (Auto) Neut % (Auto) Lymph % (Auto) [place] % (Auto) Eos % (Auto) Baso % (Auto) Immature Gran # (Auto) Neut # (Auto) Lymph # (Auto) [place] # (Auto) Eos # (Auto) Baso # (Auto) Sodium Potassium Chloride Carbon Dioxide Anion Gap BUN Creatinine Est Cr Clr Drug Dosing Est GFR ( Amer) Est GFR (Non-Af Amer) BUN/Creatinine Ratio Glucose POC Glucose 348 H 237 H 260 H Calcium 06/22/18 06/22/18 06/22/18 00:06 04:02 05:13 WBC 6.26 RBC 5.18 Hgb 15.0 Hct 41.9 L MCV 80.9 MCH 29.0 MCHC 35.8 RDW Std Deviation 42.8 RDW Coeff of Junito 14.8 H Plt Count 151 MPV 10.1 Immature Gran % (Auto) 0.2 Neut % (Auto) 63.0 Lymph % (Auto) 24.8 [place] % (Auto) 9.4 Eos % (Auto) 2.6 Baso % (Auto) 0.0 Immature Gran # (Auto) 0.01 Neut # (Auto) 3.95 Lymph # (Auto) 1.55 [place] # (Auto) 0.59 Eos # (Auto) 0.16 Baso # (Auto) 0.00 Sodium Potassium Chloride Carbon Dioxide Anion Gap BUN Creatinine Est Cr Clr Drug Dosing Est GFR ( Amer) Est GFR (Non-Af Amer) BUN/Creatinine Ratio Glucose POC Glucose 206 H 167 H Calcium 06/22/18 06/22/18 06/22/18 05:13 07:39 11:22 WBC RBC Hgb Hct MCV MCH MCHC RDW Std Deviation RDW Coeff of Junito Plt Count MPV Immature Gran % (Auto) Neut % (Auto) Lymph % (Auto) [place] % (Auto) Eos % (Auto) Baso % (Auto) Immature Gran # (Auto) Neut # (Auto) Lymph # (Auto) [place] # (Auto) Eos # (Auto) Baso # (Auto) Sodium 136 Potassium 2.8 L Chloride 96 L Carbon Dioxide 32 Anion Gap 8.0 BUN 63 H Creatinine 2.85 H Est Cr Clr Drug Dosing 30.7 Est GFR ( Amer) 26.4 Est GFR (Non-Af Amer) 22.8 BUN/Creatinine Ratio 22.0 H Glucose 153 H POC Glucose 178 H 341 H Calcium 9.0
[2018-06-22] MEDS: INSULIN GLARGINE SOLOSTAR 100 UNITS/ML 3 ML PEN SC SCH (20:53)
[2018-06-23] MEDS: HEPARIN SOD 5,000 UNIT/0.5 ML VIAL SQ SCH ×2 (05:56→13:47)
[2018-06-23 06:18] LABS: Hematocrit (blood only) 42.8 % (42-52); Hemoglobin 15.2 g/dL (14.0-18.0); Mean Corpuscular Hgb Conc 35.5 g/dL (32-36); Mean Corpuscular Volume 81.7 fL (80-100); Mean Platelet Volume 9.9 fL (7.4-10.4); Platelet Count 160 K/uL (130-400); RDW Coefficient of Variation 14.6 % (11.5-14.5); RDW Standard Deviation 42.8 fL (36.4-46.3); Red Blood Count 5.24 M/uL (4.7-6.1); White Blood Count 6.43 K/uL (4.8-10.8)
[2018-06-23 06:43] LABS: BUN Creatinine Ratio 23.6 (10-20); Calcium 9.2 mg/dl (8.5-10.1); Creatinine Clr Calc Pharmacy 34.4 ml/min; Est GFR (African American) 30.2; Est GFR (Non-African American) 26.1; Potassium 3.1 mmol/L (3.5-5.1)
[2018-06-23] MEDS: ALLOPURINOL 100 MG TAB PO SCH (08:11)
[2018-06-23] MEDS: ISOSORBIDE MONO EXTENDED REL 60 MG TABCR PO SCH (08:11)
[2018-06-23] MEDS: CARVEDILOL 25 MG TAB PO SCH (08:12)
[2018-06-23] MEDS: ASPIRIN 81 MG ECTAB PO SCH (08:12)
[2018-06-23] MEDS: INSULIN GLARGINE SOLOSTAR 100 UNITS/ML 3 ML PEN SC SCH (08:14)
[2018-06-23] MEDS: INSULIN ASPART 100 UNITS/ML 3 ML PEN SC SCH ×2 (08:16→11:52)
[2018-06-23] MEDS ORDERED: POTASSIUM CHLORIDE 20 MEQ TABCR PO STA (09:38)
--- NOTE | 2018-06-23 09:42 | Pharmacy Report ---
Pharmacy Glycemic Short Note 2 - Date of Service June 23, 2018 - Glycemic Short BSG Results (Last 24 hours): 06/22/18 06/22/18 06/22/18 11:22 16:33 20:26 Glucose POC Glucose 341 H 137 H 196 H 06/23/18 06/23/18 05:21 07:03 Glucose 189 H POC Glucose 213 H OUTPATIENT ANTIDIABETIC REGIMEN: * 40u AM, 60u PM ASSESSMENT: * Mr. Ceron's FBS hyperglycemic this AM. BSGs over the previous 24hrs: [phone]/dL. Hyperglycemia likely due to metabolic deficiency. PLAN FOR INPATIENT GLYCEMIC CONTROL: * Hold outpatient * Basal insulin - will increase dose to help correct basal deficiency * Lantus 35 units for BSGs <200mg/dL * Lantus 40 units for BSGs >/=200mg/dL * Bolus insulin * NovoLog per scale ACHS or Q6hrs while NPO * Goal Range: Low 110 mg/dL - High 140 mg/dL * Correction Factor: 15 mg/dL/unit * Nutritional / Prandial insulin per carb ratio of 1 unit per 6 grams CHO consumed
--- NOTE | 2018-06-23 11:04 | Nephrology Progress Note ---
Date of Service June 23, 2018 Assessment & Plan (1) CHF (congestive heart failure): -- Clinically improved. -- Volume status acceptable at this time. -- Maintain even fluid balance. -- Suggest continuing furosemide 40 mg daily with additional 40 mg for weight gain > 3 lbs in 24 hours. -- Low sodium diet. -- Encourage treatment of MARISA. -- Follow up with Dr. Hurtado. (2) Acute on chronic renal failure: -- Baseline creatinine ~1.9-2.5 mg/dL. -- Creatinine improved today. -- Acceptable for discharge with close outpatient follow up. -- I will arrange for blood work to be checked early next week as an outpatient. I have also requested a follow up visit in the nephrology clinic with me for next week (my office will call patient tomorrow to schedule). (3) Hypertension: -- BP acceptable on home medications. Subjective No acute events overnight. Magdiel feels well this morning. Weight is stable at 11 kg. Negative fluid balance of approximately 350 ml in past 24 hours. Creatinine improved to 2.5 mg/dL. Metabolic profile otherwise appropriate. Edema has improved. Magdiel is breathing comfortably and feels ready for discharge home. Review of Systems All systems reviewed & are unremarkable except as noted in HPI & below Physical Exam Vital Signs (Past 24 Hours): Last Vital Signs Temp 36.6 C 06/23/18 07:55 Pulse 78 06/23/18 07:55 Resp 18 06/23/18 07:55 BP 137/86 06/23/18 07:55 Pulse Ox 96 06/23/18 07:55 Constitutional: well developed and + morbidly obese; no acute distress Eyes: PERRL, conjunctivae normal, anicteric sclerae ENMT: external ear and nose normal, oropharynx normal Neck: trachea midline, no thyromegaly normal visual inspection and + thick neck Respiratory: normal respiratory effort, lungs clear to auscultation Auscultation: lungs clear to auscultation bilaterally; no diminished lung sounds and no rales Cardiovascular: RRR, no murmur, no edema Heart Sounds: normal S1 and normal S2; no gallop and no murmur Gastrointestinal (Abdomen): normal bowel sounds, soft, nontender, no h epatosplenomegaly Inspection/Auscultation: + abdomen distended Percussion/Palpation: abdomen soft; abdomen nontender, no guarding and abdomen not rigid Musculoskeletal: no cyanosis or clubbing, extremities motor strength 5/5 Extremities: no cyanosis and no clubbing Skin: no rashes, warm and dry Neurologic: Motor/Sensory: no tremor and no asterixis Psychiatric: A+Ox3, euthymic affect Results & Data Laboratory Results Laboratory Results - last 24 hr 06/22/18 06/22/18 06/22/18 11:22 16:33 20:26 WBC RBC Hgb Hct MCV MCH MCHC RDW Std Deviation RDW Coeff of Junito Plt Count MPV Sodium Potassium Chloride Carbon Dioxide Anion Gap BUN Creatinine Est Cr Clr Drug Dosing Est GFR ( Amer) Est GFR (Non-Af Amer) BUN/Creatinine Ratio Glucose POC Glucose 341 H 137 H 196 H Calcium 06/23/18 06/23/18 06/23/18 05:21 05:21 07:03 WBC 6.43 RBC 5.24 Hgb 15.2 Hct 42.8 MCV 81.7 MCH 29.0 MCHC 35.5 RDW Std Deviation 42.8 RDW Coeff of Junito 14.6 H Plt Count 160 MPV 9.9 Sodium 135 L Potassium 3.1 L Chloride 97 L Carbon Dioxide 30 Anion Gap 8.0 BUN 60 H Creatinine 2.55 H D Est Cr Clr Drug Dosing 34.4 Est GFR ( Amer) 30.2 Est GFR (Non-Af Amer) 26.1 BUN/Creatinine Ratio 23.6 H Glucose 189 H POC Glucose 213 H Calcium 9.2
--- NOTE | 2018-06-23 11:51 | Discharge Summary ---
Date of Service June 23, 2018 Admission HPI Per Admitting Provider 63 y/o M hx PMH: 62 y/o M Hx diastolic CHF, HPL, HTN, DMII, CAD, obese, gout, MARISA. Presenting with weight gain, SOB with exertion and some chest tightness over the past week. He states that his abdomen feels distended which is where he tends to accumulate fluid. He denies a productive cough, n/v or fevers. He has recently struggled with his volume status and had been switched from Lasix to Torsemide and then back to Lasix with Metolazone. He had contacted his cable inspector and was instructed to attend the hospital for IV diueresis. Initial labs are notable for mild hypokalemia. PMH: 1) CHF - diastolic - preserved EF 2) MARISA - CPAP 3) Obese 4) HPL 5) HTN 6) DM II 7) Hepatic steatosis 8) Chronic, mild thrombocytopenia 9) CAD - nonocclusive per cath 2014 10) Gout Surgical: Cervical spine surgery Social: does not currently drink or smoke Family: CAD, DM Surgical: Principal Diagnosis Fluid retention Discharge Exam Constitutional WD/WN, vitals as above + morbidly obese; no acute distress Eyes no scleral abnormality ENMT external ear and nose normal, oropharynx normal Neck normal visual inspection and + thick neck Respiratory normal respiratory effort, lungs clear to auscultation no cough Auscultation: no crackles and no wheezes Cardiovascular Rate/Rhythm: regular rate and regular rhythm Extremities: no calf tenderness and no pedal edema Gastrointestinal (Abdomen) normal bowel sounds, soft, nontender, no hepatosplenomegaly Inspection/Auscultation: abdomen not distended Percussion/Palpation: no guarding Musculoskeletal Head/Neck/Chest: normocephalic and head atraumatic Extremities: extremities normal to inspection Skin no rashes, warm and dry Neurologic moves all extremities; no focal motor deficits Psychiatric A+Ox3, euthymic affect Speech: normal rate/rhythm/volume of speech Discharge Data Allergies Allergy/AdvReac Type Severity Reaction Status Date / Time Eflqafg-Kcj-Jkj Reductase Allergy Intermediate Muscle pain Verified 06/20/18 01:49 Inhibitor Consultations 06/20/18 05:38 Consult Cardiology Routine 06/22/18 12:31 Consult Nephrology Routine Ordered Studies 06/21/18 14:48 US liver Stat Hospital Course (1) CHF (congestive heart failure): 62 yo male w/ pMHx of dCHF, HLD, HTN, DMII, CAD, obese, gout, MARISA previously on CPAP who presented to [facility] w/weight gain, SOB with exertion and some chest tightness x 1 week. On presentation he complained of abdominal distension 2/2 fluid accumulation. He follows with Dr. Gasca of nephrology and has recently struggled with his volume status and had been switched from furosemide to torsemide and then back to furosemide with Metolazone. Shortness of breath/abdominal distention CXR: No cardiopulmonary abnormalities. UA with evidence of microalbumin. *Ddx: MARISA w/ CPAP non-compliance vs. pulmonary HTN vs. dCHF vs. asbestos exposure vs. renal etiology Followed [facility] pulm in past for h/o asbestos exposure --> Normal PFTs in 2017 Cardiology consulted given h/o diastolic CHF w/ normal LV systolic fxn. Cath 2 years ago showed 40% obstruction and no stent placement at that time --> ECHO 06/21 w/o significant change. Cardio does not think CHF is contributing to SOB considering normal BNP and CXR. Nephrology consulted. IV diuresis provided with net loss 2.5L - Discharged on furosemide 40mg daily, with additional dose if 2-3lb weight gain in 24 hours, and metolazone PRN unable to diurese with 2 doses furosemide - Stressed need for CPAP compliance - Encouraged low salt AND carb conscious DM diet - Follow up to be arranged with nephrology - Follow up to be arranged with cardiology to discuss stress test given subjective chest pain and SOB on exertion, relieved by rest - ?stable angina vs deconditioned Hypokalemia Likely secondary to diuresis and insulin. Supplemented while in hospital - Discharged on KCl 20mEq daily - Recheck BMP in ~1 week MARISA Recent non-compliance w/ CPAP x 3 mths (due to disrupted sleep from dry throat despite humidifier use) - Encourage CPAP use overnight DM II HbA1c of 8.1 - Discharged on home regimen - Follow up to be arranged with endo re: improved DM management Acute on CKD stage 3 Baseline Creatinine of 1.9, creatinine 2.55 on discharge - Check BMP in 1 week HTN - Continue home carvedilol, hydralazine and ISMN Gout - Continue home allopurinol Chronic pain - Continue tramadol Diet: DM, HH, and added low salt restriction Code status: FULL Total Time Total Time Spent Total Time Spent (In Minutes): 20 Total Time Includes: Examination of the Patient, Discharge Planning, Medication Reconciliation and Communication With Other Providers Discharge Plan Discharge Items Patient Disposition: Home - Self-Care Reason For Visit: CH EXACERBATION Discharge Diagnosis: Abdominal fluid retention Condition: Good Discharge Goals: Decrease discomfort and Therapeutic intervention Activity: Resume your previous activity Non-emergency contact: Primary Care Provider and Various Exceptionalities Teacher Call non-emergency contact if: your symptoms worsen Follow-up/Referrals: Giovany Loo MD [Primary Care Provider] - Diet: Carb Consistent or DM2, Heart Healthy and Low Sodium (2gm) Addtl Provider Instructions: You were admitted to the hospital with belly swelling from fluid. Extra medication was given to help remove that fluid and provide some comfort. On discharge: - Take furosemide (Lasix) 40mg daily AND 20mEq of potassium every day - Maintain a LOW salt diet (less than 2000mg a daily, less than 400mg in a meal) AND improve your sugar control by making healthy food choices, limiting processed foods, and carbs, as best as you can. - USE YOUR CPAP EVERY NIGHT - this can potentially make a huge difference for you, for both fluid collection and feeling more rested in the [place] [facility]. - If you note that fluid has begun to collect, take a second dose of the furosemide. - If there is continued/worsening fluid collection the next day, despite second dose of furosemide, then take a dose of metolazone. - Seek medical attention if persistent worsening symptoms. Follow up will be arranged for you to see: - Nephrology, Dr. Gasca - for ongoing monitoring of fluid status and kidney function - EndocrinologySusanor - for help with improved diabetes control - Cardiology, Dr. Hurtado - for discussion of whether a stress test would be helpful to determine if your chest discomfort with walking is related to the heart or general de-conditioning/weakness. If you are not called with appointment times within 2 days of discharge, please call back to verify appointments. Prescriptions: New furosemide 40 mg tablet 40 mg PO BID17 Qty: 28 RF: 0 potassium chloride [Klor-Con M20] 20 mEq Tablet,Er Particles/Crystals 20 meq PO QAM Qty: 28 RF: 0 Continued carvedilol 25 mg Tablet 25 mg PO BID RF: 0 hydralazine 25 mg Tablet 25 mg PO BID RF: 0 aspirin [Aspir-81] 81 mg Tablet,Delayed Release (Dr/Ec) 81 mg PO QAM RF: 0 isosorbide mononitrate 60 mg Tablet Extended Release 24 Hr 60 mg PO QAM RF: 0 allopurinol 100 mg tablet 200 mg PO DAILY RF: 0 diclofenac sodium 1 % gel 1 applic topical BID RF: 0 Novolin 70/30 U-100 Insulin 100 unit/mL (70-30) suspension 60 unit subcut QPM RF: 0 Novolin 70/30 U-100 Insulin 100 unit/mL (70-30) suspension 40 unit subcut QAM RF: 0 tramadol 50 mg Tablet 50 - 100 mg PO TID PRN (Reason: Pain) RF: 0 Discontinued furosemide 40 mg tablet 40 mg PO TID RF: 0 torsemide 10 mg tablet 10 mg PO BID RF: 0 Stand-Alone Forms: [facility] Discharge Orders: Discharge Order (Routine); Ordered 06/23/18 Ordered By: Michelle Cartagena Admission Data Admit Date/Time: 06/20/18 04:30 Attending Provider: Dylan Felix Admit Provider: Samson Kimble Primary Care Provider: Giovany Loo Other Providers: Giovany Hurtado ; Heraclio Gasca Service: Telemetry Other Interventions: Discharge Summary Assessment (RN) Last Done: 06/23/18 12:42 DC Date/Time DO NOT enter until pt leaves facility: 06/23/18 14:27 Supervising Physician Co-Signing Physician Notes ATTENDING NOTE I saw the patient independently and confirmed zuniga portions of the history and physical exam. I discussed the case with the resident physician and agree with the impression and plan as noted in the discharge summary The patient feels quite well today. He feels significantly improved when compared to his initial presentation. I discussed the case with nephrology and confirmed that the patient will see them as an outpatient within the next week. Resident Activity Tracking Resident Involvement: Resident Care Provided Care Provided: Adult Hospital Medicine
[2018-06-23] MEDS ORDERED: POTASSIUM CHLORIDE 20 MEQ TABCR PO SCH (14:00)
== END 2018-06-23 14:27 | disposition home or self-care (01) | DRG 291 ==
LOC: ED 23:24 → SUATTDRO 06-20 04:30 → 2S 06-20 04:30

== ENCOUNTER 2018-08-16 06:16 | Inpatient (IN) ==
--- NOTE | 2018-07-16 15:29 | PAT Medication Instructions ---
Medication Instructions Date of Service July 16, 2018 Home Medications Medication Instructions Recorded potassium chloride [Klor-Con M20] 20 meq PO QAM #28 tab 06/23/18 aspirin [Aspir-81] 81 mg PO QAM carvedilol 25 mg PO BID hydralazine 25 mg PO BID isosorbide mononitrate 60 mg PO QAM Novolin 70/30 U-100 Insulin 40 unit SUBCUT QAM Novolin 70/30 U-100 Insulin 60 unit SUBCUT QPM allopurinol 200 mg PO BID diclofenac sodium 1 applic TOPICAL BID PRN potassium chloride [Klor-Con M20] 20 meq PO QAM furosemide 40 mg PO BID STOP taking 24 hours before surgery diclofenac sodium 1 applic TOPICAL BID PRN DO NOT take the morning of surgery potassium chloride [Klor-Con M20] 20 meq PO QAM furosemide 40 mg PO BID Take morning of surgery With a small sip of water, OTHERWISE NOTHING TO EAT OR DRINK AFTER MIDNIGHT: aspirin [Aspir-81] 81 mg PO QAM carvedilol 25 mg PO BID hydralazine 25 mg PO BID isosorbide mononitrate 60 mg PO QAM allopurinol 200 mg PO BID Take evening before surgery carvedilol 25 mg PO BID hydralazine 25 mg PO BID Novolin 70/30 U-100 Insulin 60 unit SUBCUT QPM allopurinol 200 mg PO BID furosemide 40 mg PO BID Insulin Dependent Diabetic Patients * Test your blood sugar the morning of surgery * If Blood Sugar is GREATER THAN 150, take HALF of your regular dose of: Novolin 70/30 U-100 Insulin take 20 units * If Blood Sugar is LESS THAN 150, DO NOT TAKE ANY: Novolin 70/30 U-100 Insulin Other Notes If you have any questions please call us at [phone] or [phone] or [phone] or [phone]
--- NOTE | 2018-07-17 12:49 | Anesthesiology Consultation ---
Date of Service July 17, 2018 Assessment & Plan (1) Encounter for pre-operative examination: Chart Review Chart Review: Acceptable Risk for Surgery and Patient seen in Pre Admission Testing Consults Requested cardiac (08/12) Patient was seen by cardiology on 07/10 who scheduled patient for a heart cath on 07/18 without angiography due to renal dysfunction, to look at filling pressures and intrapulmonary pressures. Also scheduled patient for stress testing on 08/12 to better evaluate coronary artery disease without causing further harm to his kidneys. All results were read as normal. Patient was last seen by Nephrology on 06/25, who did note that patients baseline creatinine is 2-2.5 (2.51 on 07/17). Teaching & Discussion Pre-Anesthesia Teaching/Discussion Notes: Instructed NPO after midnight before surgery, except medications with 15 cc of water. Medication instructions provided according to the PAT guidelines. History Surgery Operation Date: 08/16/18 08:30 Proposed Procedures p Left Total Shoulder Arthroplasty - Malcolm Adkins, Height/Weight Height: 5 ft 4 in Weight: 111.8 kg Allergies Allergy/AdvReac Type Severity Reaction Status Date / Time Tpwuszp-Ejp-Dcr Reductase AdvReac Intermediate Muscle pain Verified 07/10/18 09:30 Inhibitor Medications Home Medications Medication Instructions Recorded Confirmed Last Taken aspirin [Aspir-81] 81 mg PO QAM 12/11/17 07/18/18 12/10/17 carvedilol 25 mg PO BID 12/11/17 07/18/18 12/10/17 hydralazine 25 mg PO BID 12/11/17 07/18/18 12/10/17 isosorbide mononitrate 60 mg PO QAM 12/11/17 07/18/18 12/10/17 Novolin 70/30 U-100 Insulin 40 unit SUBCUT QAM 06/20/18 07/18/18 Unknown Novolin 70/30 U-100 Insulin 60 unit SUBCUT QPM 06/20/18 07/18/18 Unknown allopurinol 200 mg PO BID 06/20/18 07/18/18 Unknown diclofenac sodium 1 applic TOPICAL BID PRN 06/20/18 07/18/18 Unknown potassium chloride [Klor-Con M20] 20 meq PO QAM #28 tab 06/23/18 07/18/18 Unknown furosemide 40 mg PO BID 07/10/18 07/18/18 Unknown Past Medical History Medical History CHF (congestive heart failure) (Chronic) HTN (hypertension) (Chronic) Fatty liver (Chronic) Fncqn-2-msecticozvd deficiency Anemia Chronic kidney disease (CKD) Stage III - Dr. Gasca Baseline Cr 2-2.5 Diabetes mellitus, type 2 IDDM Diverticular disease Glaucoma NO MEDICATIONS. "PRE-GLAUMCOMA" Gout Pancreatitis H/O Pulmonary asbestosis Pulmonary nodules Sleep apnea CPAP Past Family History Family History Grandmother Family history of diabetes mellitus Uncle Family history of diabetes mellitus Past Surgical History Surgical History Fusion of spine CERVICAL (FIRST THREE DISCS AT THE BASE OF NECK). LIMITED MOTION TO THE LEFT, ABLE TO LOOK UP, DOWN, AND TO THE RIGHT. H/O elbow surgery LEFT History of cardiac cath NO STENTS. FOLLOWS WITH DR. HURTADO. History of colonoscopy History of esophagogastroduodenoscopy (EGD) History of tonsillectomy S/P Achilles tendon repair LEFT Past Anesthesia History No Hx of Anesthesia Complications and No Family Hx of Anesthesia Complications History of PONV No Motion Sickness Screening History of Motion Sickness: No Social History Smoking Status: Current some day smoker tobacco type: cigars Smoking cigarettes per day: Rare cigar smoker, ~1x month Do You Dip or Chew Tobacco: No Hx Alcohol Use: Yes Alcohol type: beer and hard liquor alcohol intake frequency: holidays/special occasions only Hx Substance Use: No substance use type: does not use Exercise / Class Metabolic Activity III < 4 Walking/Shop/Light housework (Walks around stores to do shopping. Can climb FOS with difficulty. Does have SOB/GUTIERREZ with activity. Gets CP with exertion at times. Resolves at rest. ) Review of Systems Patient denies reflux, cough, wheezing, palpitations. +CP (occasionally with exertion, resolves with rest) +SOB/GUTIERREZ (Out of breath easily with any activity) +Joint Pain (Shoulder, Hip, Ankle, etc) Physical Exam Vital Signs BP: 130/80 P: 74 R: 18 T: 97.9 SPO2: 97% on RA Constitutional + morbidly obese ENMT Mouth: + poor dentition and + chipped teeth Thyromental Distance: > or= 3.5 Finger Breadths (4) Mallampati Class: III Neck + short neck, + thick neck and + facial hair (Advised); neck extension not limited Respiratory normal respiratory effort Auscultation: lungs clear to auscultation bilaterally Cardiovascular Rate/Rhythm: regular rate and regular rhythm Heart Sounds: no murmur Vessels: no carotid bruit Neurologic moves all extremities Psychiatric Orientation: alert and oriented x 3 Testing Electrocardiogram Date: 07/17/18 Findings: + NSR @ (72) and + RBBB When compared with ECG from 06/19/18, RBBB has replaced non-specific intra- ventricular conduction block. Chest X-Ray Date: 07/17/18 FINDINGS: The heart is enlarged. There is stable aortic tortuosity. There is stable mild mediastinal prominence likely secondary to mediastinal fat deposition given the patient's body habitus. There is no failure. There is no focal pulmonary consolidation. There are no pleural effusions.[ There is a 9 mm right suprahilar opacity, likely representing a vascular summation. A three-month follow-up chest x-ray, or follow-up chest x-ray with obliques is recommended. There are postsurgical changes present within the cervical spine. IMPRESSION: 1. 9 mm right suprahilar opacity, likely representing a vascular summation. A three-month follow-up chest x-ray or follow-up chest x-ray with obliques is recommended. 2. No evidence of failure. No evidence of acute parenchymal consolidation. Echocardiogram Date: 06/21/18 EF: 55-60% LV Function: normal Other Findings: + LVH (borderline concentric) and + diastolic dysfunction (Grade I (abnormal relaxation pattern)) Right ventricular systolic pressure is normal Compared to an echocardiogram from 05/2017, no significant change Trace tricuspid regurgitation Stress Test Date: 08/14/18 Type: DSE Findings: + WNL Resting EF: 55% Resting LV Function: normal Resting RWMA: + hypokinetic (basal septal and inferior bedoya) Normal size left ventricle with normal overall systolic function. EF=55%. The basal septal and inferior bedoya are hypokinetic. There is moderate concentric LVH. Mild aortic sclerosis is present. Normal. Resting ECG: Normal sinus rhythm with RBBB. Cardiac Catheterization Date: 07/18/18 Date of Service July 18, 2018 Cardiac Cath Report Cardiac Cath Report Procedure performed: Right heart catheterization Staff oracle security consultant: Narciso Hurtado MD Indication: Patient is a 63-year-old gentleman with a history diastolic heart failure and renal dysfunction. He has been admitted recently for volume overload and edema. He is felt to be a good candidate for right heart cathete rization in order to elucidate any hemodynamic abnormalities associated with his symptoms Procedure in detail: Patient was informed of the risks benefits and alternatives to the intended procedure. He understood which proceed. He is taken to the cardiac catheterization suite in a fasting state. Conscious sedation was administered per protocol the patient was monitored electrocardiographically throughout today's procedure. The right antecubital vein was accessed using modified Seldinger technique and a 6 Eritrean sheath was placed over guidewire at this site. This sheath was used to facilitate passage of a balloon tip catheter for pressure measurements and cardiac output evaluation. The catheter was advanced under fluoroscopic guidance and hemodynamics were measured. Cardiac outputs were also measured using thermodilution and Randal method. At the conclusion of the case the catheter and sheath were removed. Hemostasis was achieved at the access site using manual pressure. The patient tolerated procedure well. There were no immediate complications. Equipment used: Six Eritrean balloon tipped catheter Findings: Right atrial pressure: Mean of 5 millimeters of mercury Right ventricular pressure 37/1 millimeters Hg Pulmonary artery pressure 40/17 millimeters of mercury Pulmonary capillary wedge pressure: 12 millimeters Hg Cardiac output: 6.3 liters/minute with a cardiac index of 2.9 Impression: Normal cardiac output Normal pulmonary capillary wedge pressure Mildly elevated pulmonary pressure Laboratory Results 07/17/18 13:25 07/17/18 12:48 PT 10.7 Seconds (9.0-12.0) 07/17/18 13:25 INR 1.0 (0.9-1.1) 07/17/18 13:25 APTT 26.4 Seconds (21.0-31.0) 07/17/18 13:25 7.6 % (4.5-5.6) H 07/17/18 13:25 Blood Type O Positive 07/17/18 13:25 Antibody Screen NEGATIVE 07/17/18 13:25 Surgeon notified of elevated HgBA1C and elevated glucose.
--- NOTE | 2018-07-17 13:57 | XRay Report ---
XR chest Pre-admission PA/Lat CLINICAL HISTORY: Preoperative chest COMPARISON STUDY: 06/20/2018, CT scan dated 04/25/2016 FINDINGS: The heart is enlarged. There is stable aortic tortuosity. There is stable mild mediastinal prominence likely secondary to mediastinal fat deposition given the patient's body habitus. There is no failure. There is no focal pulmonary consolidation. There are no pleural effusions.[ There is a 9 mm right suprahilar opacity, likely representing a vascular summation. A three-month follow-up chest x-ray, or follow-up chest x-ray with obliques is recommended. There are postsurgical changes present within the cervical spine. IMPRESSION: 1. 9 mm right suprahilar opacity, likely representing a vascular summation. A three-month follow-up c hest x-ray or follow-up chest x-ray with obliques is recommended. 2. No evidence of failure. No evidence of acute parenchymal consolidation. Electronically signed by: Ezequiel Bolden M.D. 07/17/2018 1:56 PM
[2018-07-17 14:30] LABS: BUN Creatinine Ratio 15.5 (10-20); Calcium 9.5 mg/dl (8.5-10.1); Creatinine Clr Calc Pharmacy 35.1 ml/min; Est GFR (African American) 30.8; Est GFR (Non-African American) 26.6; Potassium 3.5 mmol/L (3.5-5.1)
[2018-07-17 14:34] LABS: Partial Thromboplastin Time 26.4 Seconds (21.0-31.0); Prothrombin Time 10.7 Seconds (9.0-12.0)
[2018-07-17 19:21] LABS: Basophils # (auto) 0.01 K/uL (0-0.2); Basophils % (auto) 0.2 %; Eosinophils % (auto) 3.4 %; Hemoglobin 15.8 g/dL (14.0-18.0); Immature Granulocytes # (auto) 0.02 K/uL (0.00-0.02); Immature Granulocytes % (auto) 0.3 %; Lymphocytes % (auto) 18.6 %; Mean Corpuscular Hgb Conc 35.1 g/dL (32-36); Mean Corpuscular Volume 82.4 fL (80-100); Mean Platelet Volume 10.4 fL (7.4-10.4); Monocytes # (auto) 0.59 K/uL (0.11-0.59); Neutrophils % (auto) 67.5 %; Platelet Count 184 K/uL (130-400); RDW Coefficient of Variation 13.9 % (11.5-14.5); RDW Standard Deviation 41.1 fL (36.4-46.3); Red Blood Count 5.46 M/uL (4.7-6.1); White Blood Count 5.92 K/uL (4.8-10.8)
[2018-07-18 05:46] LABS: Estimated Average Glucose 171 mg/dl
--- NOTE | 2018-08-13 15:17 | History & Physical Report ---
Date of Service August 13, 2018 Assessment & Plan (1) Primary osteoarthritis of left shoulder: We will proceed with a left total shoulder arthroplasty. Postoperatively he will be placed in a sling and kept overnight for postop medical management. We will keep him on insulin postoperatively. His hemoglobin A1c was 7.6. He plans to use [facility] physical therapy and upon discharge. Present on Admission?: Yes History of Present Illness Chief Complaint: Primary osteoarthritis of the left shoulder Primary Care Provider: Narciso Loo MD Magdiel is a pleasant 63-year-old male who is been having a long history of left shoulder pain. There is been getting progressively worse over the years. X- rays and clinical examination have been diagnostic for primary osteoarthritis of the left shoulder. After failing conservative treatment, he has elected proceed with a left total shoulder arthroplasty. Allergies Allergy/AdvReac Type Severity Reaction Status Date / Time Totbqze-Ero-Ptr Reductase AdvReac Intermediate Muscle pain Verified 07/10/18 09:30 Inhibitor Home Medications Home Medications Medication Instructions Recorded Confirmed Type aspirin [Aspir-81] 81 mg PO QAM 12/11/17 07/18/18 History carvedilol 25 mg PO BID 12/11/17 07/18/18 History hydralazine 25 mg PO BID 12/11/17 07/18/18 History isosorbide mononitrate 60 mg PO QAM 12/11/17 07/18/18 History Novolin 70/30 U-100 Insulin 40 unit SUBCUT QAM 06/20/18 07/18/18 History Novolin 70/30 U-100 Insulin 60 unit SUBCUT QPM 06/20/18 07/18/18 History allopurinol 200 mg PO BID 06/20/18 07/18/18 History diclofenac sodium 1 applic TOPICAL BID PRN 06/20/18 07/18/18 History potassium chloride [Klor-Con M20] 20 meq PO QAM #28 tab 06/23/18 07/18/18 Rx furosemide 40 mg PO BID 07/10/18 07/18/18 History Past Med/Surg History Medical History CHF (congestive heart failure) (Chronic) HTN (hypertension) (Chronic) Fatty liver (Chronic) Quayy-6-lbmxgflapyj deficiency Anemia Chronic kidney disease (CKD) Stage III - Dr. Gasca Baseline Cr 2-2.5 Diabetes mellitus, type 2 IDDM Diverticular disease Glaucoma NO MEDICATIONS. "PRE-GLAUMCOMA" Gout Pancreatitis H/O Pulmonary asbestosis Pulmonary nodules Sleep apnea CPAP Surgical History Fusion of spine CERVICAL (FIRST THREE DISCS AT THE BASE OF NECK). LIMITED MOTION TO THE LEFT, ABLE TO LOOK UP, DOWN, AND TO THE RIGHT. H/O elbow surgery LEFT History of cardiac cath NO STENTS. FOLLOWS WITH DR. PRYOR. History of colonoscopy History of esophagogastroduodenoscopy (EGD) History of tonsillectomy S/P Achilles tendon repair LEFT Family History Grandmother Family history of diabetes mellitus Uncle Family history of diabetes mellitus Social History Preferred Language: Greenlandic Communication Ability: Effective Beliefs That Will Affect Care: None Current Living Situation: Spouse Feels Safe at Home: Yes Smoking Status: Current some day smoker Tobacco Type: cigars Cigarettes Per Day: Rare cigar smoker, ~1x month Second Hand Exposure: No Hx Alcohol Use: No Hx Substance Use: No Review of Systems All systems reviewed & are unremarkable except as noted in HPI & below Physical Exam Constitutional: WD/WN, vitals as above Eyes: PERRL, conjunctivae normal, anicteric sclerae ENMT: external ear and nose normal, oropharynx normal Neck: trachea midline, no thyromegaly Respiratory: normal respiratory effort Cardiovascular: RRR, no murmur, no edema Gastrointestinal (Abdomen): normal bowel sounds, soft, nontender, no hepatosplenomegaly Musculoskeletal: Physical examination of the left shoulder reveals decreased range of motion and crepitis throughout. There is good strength with full can testing and external rotation. There is tenderness palpation along the anterior glenohumeral joint line. The right upper extremity is neurovascularly intact. Psychiatric: A+Ox3, euthymic affect Results & Data Diagnostic Findings Radiographs of the left shoulder show osteoarthritis of the glenohumeral joint. There is joint space narrowing, osteophyte formation, and [id number] articulation.
[~2018-08-16 06:16] MED LIST changes: +ACETAMINOPHEN 500 MG TAB PO SCH; -APR25 PO; -ASPI81TA28 PO; -CARV25TA2 PO; +CEFAZOLIN 2000MG 2,000 MG/15 ML SYR IV SCH; -CHOL1TAB63 PO; +FAMOTIDINE 20 MG TAB PO SCH; -FRS/40 PO; +GABAPENTIN 300 MG x 2 PO SCH; -ISOS60TA25 PO; +LR 15ML/HR IV SCH; +LR 60ML/HR IV SCH; -METO5TAB25 PO; -NVLGI/PEN SC; +ROPIVACAINE 0.5% HCL/PF 150 MG, BUPIVACAINE 0.5% MPF 30 ML, EPINEPHrine 30MG/30ML (OR U... INFIL SCH; -SIME80CH PO; +TRANEXAMIC ACID 1,000 MG **IV Pre-op IV SCH
[2018-08-16] MEDS ORDERED: TRANEXAMIC ACID 1,000 MG **IV Intra-op IV SCH (06:30)
[2018-08-16] MEDS ORDERED: BUPIVACAINE 0.5 % 5 MG/1 ML PF 10ML VIAL ONE (06:32)
--- NOTE | 2018-08-16 06:44 | History & Physical Bridge Note ---
Date of Service August 16, 2018 History & Physical Bridge Note I have examined the patient, reviewed the History & Physical and in the interval since the performance of the History & Physical I have noted the following changes of clinical significance: no changes noted
[2018-08-16] MEDS ORDERED: MIDAZOLAM HCL 1 MG/ML 2ML VIAL ONE (06:56)
[2018-08-16] MEDS ORDERED: fentaNYL citrate 100 MCG/2 ML VIAL ONE (06:56)
[2018-08-16] MEDS ORDERED: ONDANSETRON INJ 2 MG/ML 2 ML VIAL ONE (06:56)
[2018-08-16] MEDS ORDERED: PROPOFOL IV EMULSION 10 MG/ML 20 ML VIAL IV ONE (06:56)
[2018-08-16] MEDS ORDERED: LIDOCAINE HCL 2% 2 ML VIAL/AMP(20MG/ML) INFIL ONE (06:56)
[2018-08-16] MEDS ORDERED: POVIDONE-IODINE OP SOLN 30 ML BTL ONE (07:07)
[2018-08-16] MEDS ORDERED: LABETALOL HCL IV 5 MG/ML 20ML IV PRN (07:32)
[2018-08-16] MEDS ORDERED: HYDROmorphone INJ 1 MG/ML SYRINGE IV PRN (07:32)
[2018-08-16] MEDS ORDERED: ONDANSETRON INJ 2 MG/ML 2 ML VIAL IV PRN ×2 (07:32→11:55)
[2018-08-16] MEDS ORDERED: ATROPINE SULFATE 0.1 MG/ML 10ML SYR IV PRN (07:32)
[2018-08-16] MEDS ORDERED: ROCURONIUM BROMIDE 10 MG/ML 5 ML VIAL ONE (07:54)
[2018-08-16] MEDS ORDERED: NEOSTIGMINE METHYLSULFATE 5 MG/5 ML SYR ONE (09:31)
[2018-08-16] MEDS ORDERED: GLYCOPYRROLATE 0.2 MG/ML VIAL ONE (09:31)
[2018-08-16] MEDS ORDERED: THROMBIN FOR SOLN 20000 UNIT KIT ONE (10:04)
--- NOTE | 2018-08-16 10:21 | Operative Report ---
Post Operative Report Pre & Post Diagnosis Operation Date: 08/16/18 08:30 Pre-Op Diagnosis: Left Shoulder Degenerative Joint Disease Post-Op Diagnosis: Left Shoulder Degenerative Joint Disease Procedure Operation Date: 08/16/18 08:30 Actual Procedures p Left Total Shoulder Arthroplasty(Left) - Malcolm Adkins DO Surgeon Malcolm Adkins DO Feeder/Folder Malcolm Fuentes PAC Estimated Blood Loss 300 Findings Consistent with Post-Op Diagnosis Specimens Left humeral head Complications none Disposition Disposition: Recovery Room Indications Magdiel is a pleasant 63-year-old male who presented my office with chronic increasing left shoulder pain. X-rays and clinical examination were diagnostic for primary also arthritis of left shoulder. After failing conservative treatment, he elected to proceed with a left total shoulder arthroplasty. Description of Procedure Implants used: I used a Biomet Comprehensive total shoulder arthroplasty system with a size 14 press fit mini humeral stem, a size 50 x 21 eccentric humeral head, and a large size glenoid with a Regenerex peg. The glenoid was cemented in place with Palacos G cement. The patient arrived at [facility] for the above procedure. There were seen in the preoperative holding area and the operative extremity was identified and signed. They were given a preoperative antibiotic and an interscalene nerve block. They were taken back to the operating room, laid on table in supine position, and put under general anesthesia. They were then put into the beachchair position. The shoulder was then prepped and draped in sterile fashion. A timeout was done and the patient in the operative extremity was properly identified. A deltopectoral approach was used. Dissection was taken down through the fascia and the deltoid was retracted laterally and the conjoined tendon was retracted medially. The anterior shoulder was exposed. The long head of the biceps tendon was tenodesed to the upper border of the pectoralis major. The subscapularis was then released off the lesser tuberosity with a centimeter of cuff tissue remaining. The inferior capsule was released and the humeral head was dislocated. The rotator cuff was inspected and intact. A canal finding reamer was sent down the center of the humeral canal. Sequential reaming up to a size 14 reamer was done. Offset reamer a proximal humeral resection guide was placed. The proximal humerus was resected at 135 of inclination and 30 of retroversion. Inferior osteophytes were then removed and the glenoid was exposed. Time was spent doing an appropriate labral release. The glenoid measured to be a size large. A 3.2 mm Steinmann pin was placed in the central hole of the glenoid vault pin guide. The glenoid was then reamed with a propeller reamer. The central post cutter was then used to prepare for the central boss. The cannulated peripheral peg drill guide was then placed and 3 peg holes were drilled. The final size large glenoid was then cemented in place with Palacos G cement. Surrounding soft tissues were then injected with 100 cc of an orthopedic pain control cocktail. Once cement had dried the proximal humerus was once again exposed. Sequential broaching of the humerus up to a size 14 broach was done. Off that broach a size 50 x 21 eccentric humeral head was trialed. The shoulder was then reduced, brought through a full range of motion and felt to be stable. The shoulder was then dislocated and the broach was removed. The final size 14 mini humeral stem implant was then impacted into place. A size 50 x 21 eccentric humeral head was then impacted onto the humeral stem. The shoulder was then reduced and once again brought through a full range of motion and felt to be stable. The subscapularis was then tenodesed back to the lesser tuberosity with transosseous FiberWire sutures and side to side sutures with the arm in 45 of external rotation. 2 sutures were placed in the lateral rotator interval. A dilute betadyne lavage was then done for 3 minutes. The joint was then irrigated with normal saline solution. Hemostasis was obtained. The skin was then closed with 2-0 Vicryl, 3-0V lock suture, and citlali. A soft dressing was placed as well as a regular arm sling. The patient was then extubated and transferred to a hospital bed. There were taken to the postanesthesia care unit in stable condition. The tolerated the procedure well. I attest to the content of the Intraoperative Record and any orders documented therein. Any exceptions are noted below.
--- NOTE | 2018-08-16 11:07 | XRay Report ---
XR shoulder LT min 2V routine CLINICAL HISTORY: Post shoulder surgery COMPARISON: None. DISCUSSION: There are postsurgical changes of a total left shoulder arthroplasty. There is no disloca tion. There are no acute fractures. There are overlying skin citlali and surgical drains. IMPRESSION: Postsurgical changes of a total left shoulder arthroplasty. No evidence of dislocation Electronically signed by: Ezequiel Bolden M.D. 08/16/2018 11:06 AM
--- NOTE | 2018-08-16 11:28 | Anesthesiology Progress Note ---
Date of Service August 16, 2018 Anesthesia Post Procedure Vital Signs Vital Signs: Temp Pulse Pulse Resp BP Pulse Ox 08/16/18 11:25 36.1 C L 71 16 121/77 98 08/16/18 11:15 72 17 119/81 99 08/16/18 11:05 66 14 132/83 100 08/16/18 10:55 69 20 119/74 100 08/16/18 10:46 36.1 C L 68 15 96/66 L 99 08/16/18 06:40 36.9 C 82 20 163/87 H 96 Pain Intensity Left Shoulder: Pain Intensity: 0 Transfer of Care Handoff Completed per policy Notes Mental Status: alert / awake / arousable Patient Amnestic to Procedure: Yes Nausea / Vomiting: adequately controlled Pain: adequately controlled Airway Patency, RR, SpO2: stable & adequate BP & HR: stable & adequate Hydration State: stable & adequate Anesthetic Complications: no major complications apparent
[2018-08-16] MEDS ORDERED: SODIUM CHLORIDE 0.9% 1000ML 1,000 ML IV SCH (11:55)
[2018-08-16] MEDS ORDERED: METOCLOPRAMIDE HCL INJ 5 MG/ML 2 ML VIAL IV PRN (11:55)
[2018-08-16] MEDS ORDERED: MAGNESIUM HYDROXIDE SUSP 30 ML UDC PO PRN (11:55)
[2018-08-16] MEDS ORDERED: NALOXONE HCL 0.4 MG/1 ML VIAL/CARP IV PRN (11:55)
[2018-08-16] MEDS ORDERED: PHARMACY GLYCEMIC MGMT CONSULT STA (11:55)
[2018-08-16] MEDS ORDERED: BISACODYL 10 MG SUPP PR PRN (11:55)
[2018-08-16] MEDS ORDERED: HYDROmorphone INJ 0.5 MG/0.5 ML SYR IV PRN (11:55)
[2018-08-16] MEDS: ACETAMINOPHEN 500 MG TAB PO SCH ×2 (13:12→22:05)
[2018-08-16] MEDS: KETOROLAC 30 MG/ML VIAL IV SCH ×2 (13:13→21:59)
[2018-08-16] MEDS: INSULIN ASPART 100 UNITS/ML 3 ML PEN SC SCH ×4 (13:15→23:42)
[2018-08-16] MEDS ORDERED: INSULIN HUMAN NPH SC STA ×2 (13:24)
[2018-08-16] MEDS ORDERED: PHARMACY GLYCEMIC MGMT CONSULT PRN (13:30)
--- NOTE | 2018-08-16 13:57 | Pharmacy Report ---
Glycemic Control Consultation - Date of Service August 16, 2018 - Scope Scope: Glycemic Pharmacist consulted by Dr Fuentes on 08/16/18 for glycemic control and to write orders per [facility] inpatient glycemic control protocol - Objective Weight: 112.1 kg Accuchecks BSG (last 24hrs): 08/16/18 08/16/18 08/16/18 06:36 10:52 11:59 POC Glucose 138 H 174 H 198 H HbA1c: 7.6 % (4.5-5.6) H 07/17/18 13:25 - Recent Pertinent Medications Outpatient Anti-diabetic Regimen: * 70/30 40-45units QAM, 60-65units QPM * A1c = 7.6 % 07/17/18 - Assessment & Plan Assessment & Plan: ASSESSMENT: * Mr. Ceron is POD: 0 s/p L shoulder arthroplasty. Known from previous admission. He is maintained on 70/30 insulin as an outpt. Pre-mixed insulin is ill advised for inpts due to fluctuating PO status and acute changes in insulin requirements. * We will use NPH and novolog while he is admitted. Nil steroids given reynaldo- operatively. He is ordered a diet. 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 PLAN FOR INPATIENT GLYCEMIC CONTROL: * Basal insulin * NPH 32 units with lunch and then NPH scale at dinner * BSGs <180mg/dL give 35 units * BSGs >/=180mg/dL give 40 units * Bolus insulin * NovoLog per scale ACHS or Q6hrs while NPO * Goal Range: Low 110 mg/dL - High 140 mg/dL * Correction Factor: 15 mg/dL/unit * Nutritional / Prandial insulin per carb ratio of 1 unit per 5 grams CHO consumed * Please note that the plan above was derived based on current level of insulin resistance and hospital stress. These recommendations are appropriate for inpatient admission only. Plan of care upon discharge will need to be reassessed to avoid potential outpatient hypo/hyperglycemia. Thank you.
[2018-08-16] MEDS ORDERED: NURSING DECISION MEDICATION ONE (15:37)
[2018-08-16] MEDS ORDERED: COUGH DROP (SUGAR FREE) LOZ 24 LOZ/1 BOX BUCCAL ONE (15:39)
[2018-08-16] MEDS ORDERED: COUGH DROP (SUGAR FREE) LOZ 24 LOZ/1 BOX BUCCAL PRN (15:47)
[2018-08-16] MEDS: INSULIN HUMAN NPH SC SCH (18:03)
[2018-08-16] MEDS: FUROSEMIDE 40 MG TAB PO SCH (19:56)
[2018-08-16] MEDS: CARVEDILOL 25 MG TAB PO SCH (20:32)
[2018-08-16] MEDS ORDERED: LIDOCAINE 2% JELLY 5 ML TUBE EXT ONE (21:05)
[2018-08-16] MEDS ORDERED: LIDOCAINE 2% JELLY 5 ML TUBE ONE (21:11)
[2018-08-16] MEDS: CEFAZOLIN 2000MG 2,000 MG/15 ML SYR IV SCH (21:54)
[2018-08-16] MEDS: ALLOPURINOL 100 MG TAB PO SCH (22:01)
[2018-08-16] MEDS: DOCUSATE SODIUM 100 MG CAP PO SCH (22:02)
[2018-08-16] MEDS: SENNA 8.6 MG TAB PO SCH (22:03)
[2018-08-17] MEDS: KETOROLAC 30 MG/ML VIAL IV SCH ×3 (02:16→13:03)
[2018-08-17] MEDS: INSULIN ASPART 100 UNITS/ML 3 ML PEN SC SCH ×5 (03:59→21:57)
[2018-08-17] MEDS: CEFAZOLIN 2000MG 2,000 MG/15 ML SYR IV SCH (03:59)
[2018-08-17 06:11] LABS: Basophils # (auto) 0.01 K/uL (0-0.2); Basophils % (auto) 0.1 %; Eosinophils # (auto) 0.01 K/uL (0-0.5); Eosinophils % (auto) 0.1 %; Hemoglobin 12.9 g/dL (14.0-18.0); Immature Granulocytes # (auto) 0.05 K/uL (0.00-0.02); Immature Granulocytes % (auto) 0.5 %; Lymphocytes # (auto) 0.83 K/uL (1.2-3.4); Lymphocytes % (auto) 7.5 %; Mean Corpuscular Hgb Conc 34.9 g/dL (32-36); Mean Corpuscular Volume 80.1 fL (80-100); Mean Platelet Volume 10.3 fL (7.4-10.4); Monocytes # (auto) 1.05 K/uL (0.11-0.59); Monocytes % (auto) 9.5 %; Neutrophils # (auto) 9.06 K/uL (1.4-6.5); Neutrophils % (auto) 82.3 %; Platelet Count 161 K/uL (130-400); RDW Coefficient of Variation 13.9 % (11.5-14.5); RDW Standard Deviation 39.4 fL (36.4-46.3); Red Blood Count 4.62 M/uL (4.7-6.1); White Blood Count 11.01 K/uL (4.8-10.8)
[2018-08-17] MEDS: ACETAMINOPHEN 500 MG TAB PO SCH ×3 (06:13→22:28)
[2018-08-17 06:36] LABS: BUN Creatinine Ratio 14.6 (10-20); Calcium 8.5 mg/dl (8.5-10.1); Creatinine Clr Calc Pharmacy 24.8 ml/min; Est GFR (African American) 20.2; Est GFR (Non-African American) 17.4; Potassium 3.4 mmol/L (3.5-5.1)
--- NOTE | 2018-08-17 07:27 | Orthopedic Progress Note ---
Date of Service August 17, 2018 Assessment & Plan (1) Primary osteoarthritis of left shoulder: Overall he is doing very well. We will remove the drain this morning. We will also remove the Rees catheter. He can be discharged home this morning once he is able to void. He will be seen by physical therapy this morning for range of motion exercises. He will follow-up with [facility] therapy upon discharge. He will follow-up with orthopedics in 2 weeks. Present on Admission?: Yes Subjective Magdiel was seen and examined at bedside this morning. Overall is doing fairly well. Is not having any pain in the left shoulder. Unfortunately he was having difficulty voiding last night. He was catheterized once and then had a Rees placed the second time. He otherwise has no complaints. Physical Exam Musculoskeletal: On physical examination of the left shoulder, the dressing is clean and dry. His radial, median, and ulnar nerves are checked and intact. He is wearing a sling as instructed. Results & Data Vital Signs (Past 12 Hours) Vital Signs Temp Pulse Resp BP Pulse Ox 08/17/18 07:04 36.4 C L 75 18 144/78 H 91 08/17/18 04:10 36.7 C 70 16 132/83 95 08/16/18 23:35 36.6 C 80 18 130/76 94 08/16/18 21:59 85 18 155/91 H 94 08/16/18 20:25 84 16 174/109 H 96 Laboratory Results H & H 07/17/18 07/17/18 07/17/18 Range/Units 12:48 13:25 13:25 WBC 5.92 (4.8-10.8) K/uL RBC 5.46 (4.7-6.1) M/uL Hgb 15.8 (14.0-18.0) g/dL Hct 45.0 (42-52) % MCV 82.4 (80-100) fL MCH 28.9 (25-34) pg MCHC 35.1 (32-36) g/dL RDW Std Deviation 41.1 (36.4-46.3) fL RDW Coeff of Junito 13.9 (11.5-14.5) % Plt Count 184 (130-400) K/uL MPV 10.4 (7.4-10.4) fL Immature Gran % (Auto) 0.3 % Neut % (Auto) 67.5 % Lymph % (Auto) 18.6 % Hunt % (Auto) 10.0 % Eos % (Auto) 3.4 % Baso % (Auto) 0.2 % Immature Gran # (Auto) 0.02 (0.00-0.02) K/uL Neut # (Auto) 4.00 (1.4-6.5) K/uL Lymph # (Auto) 1.10 L (1.2-3.4) K/uL Hunt # (Auto) 0.59 (0.11-0.59) K/uL Eos # (Auto) 0.20 (0-0.5) K/uL Baso # (Auto) 0.01 (0-0.2) K/uL PT 10.7 (9.0-12.0) Seconds INR 1.0 (0.9-1.1) APTT 26.4 (21.0-31.0) Seconds PTT Ratio 1.0 Sodium 133 L (136-145) mmol/L Potassium 3.5 (3.5-5.1) mmol/L Chloride 94 L (98-107) mmol/L Carbon Dioxide 35 H (21-32) mmol/L Anion Gap 4.0 (3-11) BUN 39 H (7-18) mg/dl Creatinine 2.51 H (0.6-1.4) mg/dl Est Cr Clr Drug Dosing 35.1 ml/min Est GFR ( Amer) 30.8 Est GFR (Non-Af Amer) 26.6 BUN/Creatinine Ratio 15.5 (10-20) Glucose 243 H (70-99) mg/dl POC Glucose (70-99) Estimat Average Glucose mg/dl Hemoglobin A1c (4.5-5.6) % Calcium 9.5 (8.5-10.1) mg/dl Blood Type Antibody Screen 07/17/18 07/17/18 08/16/18 Range/Units 13:25 13:25 06:36 WBC (4.8-10.8) K/uL RBC (4.7-6.1) M/uL Hgb (14.0-18.0) g/dL Hct (42-52) % MCV (80-100) fL MCH (25-34) pg MCHC (32-36) g/dL RDW Std Deviation (36.4-46.3) fL RDW Coeff of Junito (11.5-14.5) % Plt Count (130-400) K/uL MPV (7.4-10.4) fL Immature Gran % (Auto) % Neut % (Auto) % Lymph % (Auto) % Hunt % (Auto) % Eos % (Auto) % Baso % (Auto) % Immature Gran # (Auto) (0.00-0.02) K/uL Neut # (Auto) (1.4-6.5) K/uL Lymph # (Auto) (1.2-3.4) K/uL Hunt # (Auto) (0.11-0.59) K/uL Eos # (Auto) (0-0.5) K/uL Baso # (Auto) (0-0.2) K/uL PT (9.0-12.0) Seconds INR (0.9-1.1) APTT (21.0-31.0) Seconds PTT Ratio Sodium (136-145) mmol/L Potassium (3.5-5.1) mmol/L Chloride (98-107) mmol/L Carbon Dioxide (21-32) mmol/L Anion Gap (3-11) BUN (7-18) mg/dl Creatinine (0.6-1.4) mg/dl Est Cr Clr Drug Dosing ml/min Est GFR ( Amer) Est GFR (Non-Af Amer) BUN/Creatinine Ratio (10-20) Glucose (70-99) mg/dl POC Glucose 138 H (70-99) Estimat Average Glucose 171 mg/dl Hemoglobin A1c 7.6 H (4.5-5.6) % Calcium (8.5-10.1) mg/dl Blood Type O Positive Antibody Screen NEGATIVE 08/16/18 08/16/18 08/16/18 Range/Units 10:52 11:59 17:22 WBC (4.8-10.8) K/uL RBC (4.7-6.1) M/uL Hgb (14.0-18.0) g/dL Hct (42-52) % MCV (80-100) fL MCH (25-34) pg MCHC (32-36) g/dL RDW Std Deviation (36.4-46.3) fL RDW Coeff of Junito (11.5-14.5) % Plt Count (130-400) K/uL MPV (7.4-10.4) fL Immature Gran % (Auto) % Neut % (Auto) % Lymph % (Auto) % Hunt % (Auto) % Eos % (Auto) % Baso % (Auto) % Immature Gran # (Auto) (0.00-0.02) K/uL Neut # (Auto) (1.4-6.5) K/uL Lymph # (Auto) (1.2-3.4) K/uL Hunt # (Auto) (0.11-0.59) K/uL Eos # (Auto) (0-0.5) K/uL Baso # (Auto) (0-0.2) K/uL PT (9.0-12.0) Seconds INR (0.9-1.1) APTT (21.0-31.0) Seconds PTT Ratio Sodium (136-145) mmol/L Potassium (3.5-5.1) mmol/L Chloride (98-107) mmol/L Carbon Dioxide (21-32) mmol/L Anion Gap (3-11) BUN (7-18) mg/dl Creatinine (0.6-1.4) mg/dl Est Cr Clr Drug Dosing ml/min Est GFR ( Amer) Est GFR (Non-Af Amer) BUN/Creatinine Ratio (10-20) Glucose (70-99) mg/dl POC Glucose 174 H 198 H 203 H (70-99) Estimat Average Glucose mg/dl Hemoglobin A1c (4.5-5.6) % Calcium (8.5-10.1) mg/dl Blood Type Antibody Screen 08/16/18 08/16/18 08/17/18 Range/Units 20:37 23:39 03:57 WBC (4.8-10.8) K/uL RBC (4.7-6.1) M/uL Hgb (14.0-18.0) g/dL Hct (42-52) % MCV (80-100) fL MCH (25-34) pg MCHC (32-36) g/dL RDW Std Deviation (36.4-46.3) fL RDW Coeff of Junito (11.5-14.5) % Plt Count (130-400) K/uL MPV (7.4-10.4) fL Immature Gran % (Auto) % Neut % (Auto) % Lymph % (Auto) % Hunt % (Auto) % Eos % (Auto) % Baso % (Auto) % Immature Gran # (Auto) (0.00-0.02) K/uL Neut # (Auto) (1.4-6.5) K/uL Lymph # (Auto) (1.2-3.4) K/uL Hunt # (Auto) (0.11-0.59) K/uL Eos # (Auto) (0-0.5) K/uL Baso # (Auto) (0-0.2) K/uL PT (9.0-12.0) Seconds INR (0.9-1.1) APTT (21.0-31.0) Seconds PTT Ratio Sodium (136-145) mmol/L Potassium (3.5-5.1) mmol/L Chloride (98-107) mmol/L Carbon Dioxide (21-32) mmol/L Anion Gap (3-11) BUN (7-18) mg/dl Creatinine (0.6-1.4) mg/dl Est Cr Clr Drug Dosing ml/min Est GFR ( Amer) Est GFR (Non-Af Amer) BUN/Creatinine Ratio (10-20) Glucose (70-99) mg/dl POC Glucose 245 H 204 H 136 H (70-99) Estimat Average Glucose mg/dl Hemoglobin A1c (4.5-5.6) % Calcium (8.5-10.1) mg/dl Blood Type Antibody Screen 08/17/18 08/17/18 08/17/18 Range/Units 05:07 05:07 06:18 WBC 11.01 H (4.8-10.8) K/uL RBC 4.62 L (4.7-6.1) M/uL Hgb 12.9 L (14.0-18.0) g/dL Hct 37.0 L (42-52) % MCV 80.1 (80-100) fL MCH 27.9 (25-34) pg MCHC 34.9 (32-36) g/dL RDW Std Deviation 39.4 (36.4-46.3) fL RDW Coeff of Junito 13.9 (11.5-14.5) % Plt Count 161 (130-400) K/uL MPV 10.3 (7.4-10.4) fL Immature Gran % (Auto) 0.5 % Neut % (Auto) 82.3 % Lymph % (Auto) 7.5 % Hunt % (Auto) 9.5 % Eos % (Auto) 0.1 % Baso % (Auto) 0.1 % Immature Gran # (Auto) 0.05 H (0.00-0.02) K/uL Neut # (Auto) 9.06 H (1.4-6.5) K/uL Lymph # (Auto) 0.83 L (1.2-3.4) K/uL Hunt # (Auto) 1.05 H (0.11-0.59) K/uL Eos # (Auto) 0.01 (0-0.5) K/uL Baso # (Auto) 0.01 (0-0.2) K/uL PT (9.0-12.0) Seconds INR (0.9-1.1) APTT (21.0-31.0) Seconds PTT Ratio Sodium 134 L (136-145) mmol/L Potassium 3.4 L (3.5-5.1) mmol/L Chloride 97 L (98-107) mmol/L Carbon Dioxide 28 (21-32) mmol/L Anion Gap 9.0 (3-11) BUN 52 H (7-18) mg/dl Creatinine 3.56 H (0.6-1.4) mg/dl Est Cr Clr Drug Dosing 24.8 ml/min Est GFR ( Amer) 20.2 Est GFR (Non-Af Amer) 17.4 BUN/Creatinine Ratio 14.6 (10-20) Glucose 133 H (70-99) mg/dl POC Glucose 145 H (70-99) Estimat Average Glucose mg/dl Hemoglobin A1c (4.5-5.6) % Calcium 8.5 (8.5-10.1) mg/dl Blood Type Antibody Screen Coagulation 07/17/18 Range/Units 13:25 INR 1.0 (0.9-1.1) Diagnostic Findings Postoperative x-rays of the left shoulder show the prosthesis to be in anatomic alignment without any evidence of fracture, dislocation, or loosening.
[2018-08-17] MEDS: INSULIN HUMAN NPH SC SCH ×2 (08:36→18:35)
[2018-08-17] MEDS: CARVEDILOL 25 MG TAB PO SCH ×2 (08:39→21:50)
[2018-08-17] MEDS: MULTIVITAMIN TAB PO SCH (08:40)
[2018-08-17] MEDS: ASPIRIN 81 MG ECTAB PO SCH (08:40)
[2018-08-17] MEDS: ISOSORBIDE MONO EXTENDED REL 60 MG TABCR PO SCH (08:40)
[2018-08-17] MEDS: ALLOPURINOL 100 MG TAB PO SCH ×2 (08:40→21:50)
[2018-08-17] MEDS: FUROSEMIDE 40 MG TAB PO SCH ×2 (08:40→21:50)
[2018-08-17] MEDS: DOCUSATE SODIUM 100 MG CAP PO SCH ×2 (08:40→21:49)
[2018-08-17] MEDS ORDERED: INSULIN HUMAN 70% NPH/30% REGULAR SQ SCH (09:00)
--- NOTE | 2018-08-17 11:14 | Pharmacy Report ---
Pharmacy Glycemic Short Note 2 - Date of Service August 17, 2018 - Glycemic Short BSG Results (Last 24 hours): 08/16/18 08/16/18 08/16/18 11:59 17:22 20:37 Glucose POC Glucose 198 H 203 H 245 H 08/16/18 08/17/18 08/17/18 23:39 03:57 05:07 Glucose 133 H POC Glucose 204 H 136 H 08/17/18 08/17/18 06:18 08:09 Glucose POC Glucose 145 H 161 H OUTPATIENT ANTIDIABETIC REGIMEN: * 70/30 40-45units QAM, 60-65units QPM * A1c = 7.6 % 07/17/18 ASSESSMENT: * Outpatient regimen is premixed basal/prandial insulin of 70/30 (NPH/Regular) mix insulin. * Pre-mixed insulin is difficult to titrate since it is already in a fixed distribution of basal:prandial insulin. Continuing pre-mixed insulin for admission typically lead to hypoglycemia d/t changing PO status but rapid acting insulin is unable to be held. * Home regimen held for admission per pharmacy consult. 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 Will continue current orders as BSGs are trending down. Will adjust parameters if sustained hyperglycemia occurs. * Goal is to maintain BSGs <200 mg/dl (ideally <150 mg/dl) to prevent post op complications PLAN FOR INPATIENT GLYCEMIC CONTROL: * Hold outpatient diabetes medications * Basal insulin * NPH 28 units SQ BID * Bolus insulin * NovoLog per scale ACHS or Q6hrs while NPO * Goal Range: Low 110 mg/dL - High 140 mg/dL * Correction Factor: 15 mg/dL/unit * Nutritional / Prandial insulin per carb ratio of 1 unit per 5 grams CHO consumed PLAN FOR DISCHARGE: * A1c is in goal range. Pt may resume outpatient insulin dosing at hi.
[2018-08-17] MEDS ORDERED: SODIUM CHLORIDE 0.9% 1000ML 1,000 ML IV ONE (14:20)
[2018-08-17] MEDS ORDERED: POTASSIUM CHLORIDE 20 MEQ TABCR PO ONE (14:23)
--- NOTE | 2018-08-17 15:52 | Nephrology Consultation ---
Date of Consultation August 17, 2018 Assessment & Plan (1) Acute renal failure: -- Clinically consistent with ATN -- Stop Toradol and avoid all NSAIDS -- UA/microscopy + random urine sodium/creatinine are pending -- Renal US requested -- Bladder scan q 6 hours and straight cath PRN -- Document strict I/O -- Electrolytes are appropriate -- Volume status acceptable -- Repeat metabolic profile in the AM -- Diuretics as needed to encourage even fluid balance (2) CKD (chronic kidney disease), stage III: -- Baseline creatinine 2.5 mg/dL (3) Primary osteoarthritis of left shoulder: -- POD # 1 s/p R shoulder artroplasty (4) Chronic diastolic heart failure: -- Volume status acceptable -- Furosemide 40 mg BID -- Daily weights (5) Type II diabetes mellitus: (6) Hypertension: (7) Anemia of chronic disease: -- Hgb 15-->12.9 -- Monitor with daily labs History of Present Illness Reason for Consultation: STEVEN/CKD Requesting Physician: Antonia Dickerson PA-C Attending Physician: Malcolm Adkins DO History of Present Illness Mr. Magdiel Ceron is a 63-year-old male with a very complex medical history. This includes obesity, hypertension, adult onset diabetes mellitus, MARISA (untreated), chronic diastolic CHF, asbestos exposure, and CKD. He has CKD IIIb A2. Baseline creatinine is approximately 2.5 mg/dL. CKD has been attributed to diabetes, hypertension, and microvascular disease. There have been multiple episodes of STEVEN attributed to cardiorenal syndrome. He has untreated MARISA and diastolic dysfunction. I know Magdiel well having followed him in the outpatient nephrology clinic. Magdiel was admitted to [facility] yesterday following elective total shoulder arthroscopy. Magdiel's called me yesterday evening from because she was concerned about her . I made a social visit earlier today at Mrs. Ceron's request. Magdiel was experiencing difficulty voiding immediately following his surgery. Rees catheter was placed with a return of ~500 ml of urine. Unfortunately, since the catheter was removed, Magdiel has been unable to void. He was bladder scanned for only 47 ml. Magdiel is concerned that his creatinine was elevated this morning and that he was not voiding. He stated that he had no urge to void. A medical consultation was placed. I was called by Antonia Dickerson PA-C for nephrology consultation. We discussed the situation over the phone. Toradol has been provided for pain control which should be stopped. Magdiel is in a 2.7 L positive fluid balance. He is tolerating adequate PO intake. I requested that IVF be held as well. Magdiel has been maintained on his home dose of furosemide 40 mg BID. This will be continued with additional dosing as needed to encourage an even fluid balance. History of heart disease includes cardiac catheterization revealing non occlusive CAD in 2014. Magdiel presented to the Emergency Department at [facility] on June 20 with increasing fluid retention. He was admitted and started on IV furosemide. Magdiel initially received 80 mg Q 8 hours. This was transitioned to 80 mg BID. He was negative net 8 liters during the admission. His weight returned to baseline 243 lbs. TTE was updated during the admission. There were no acute findings. Blood glucose levels were consistently elevated. Creatinine started to rise to 3.0 mg/dL. Diuretics were reduced to furosemide 40 mg daily prior to discharge and creatinine improved to 2.5 mg/dL. I saw Magdiel in the nephrology clinic on June 04. He had evidence of fluid retention at that time. Furosemide was increased from 40 mg BID to 80 mg QAM and 40 mg QPM. Unfortunately abdominal edema and weight continued to rise. He saw Dr. Hurtado in the cardiology clinic on June 12 and furosemide was switched to Torsemide due to failure to respond to furosemide. Edema initially responded to the medication, unfortunately within 72 hours of his current hospitalization he started to experience increasing edema and abdominal distention. His weight increased 8 lbs from baseline 243 lbs. He presented to the ED because he was concerned. He has PRN daily metolazone to use at home but the medication did not provide significant benefit. Dr. Hurtado performed a right heart catheterization at the end of June confirming pulmonary pressures at near euvolemia. Magdiel presented to the ED at [facility] at the end of July 2017 with 10 lbs weight gain and significant abdominal discomfort and bloating. Volume status improved with IV furosemide followed by several days of increased dose at home. Weight stabilized at 242-244 lbs at that time. Serum creatinine improved to 2.2 mg/dL. Fenofibrate, valsartan and spironolactone were stopped due to STEVEN. Cramping in his arms and legs and generalized muscle pains improved after stopping Fenofibrate. Magdiel was hospitalized at [facility] from June 10-2017 with acute kidney injury and acute on chronic CHF. Creatinine peaked at 3.56 mg/dL on June 11. Clinical presentation consistent with congestive nephropathy related to volume overload (cardiorenal syndrome). Spironolactone and valsartan were held. Furosemide was switched to bumex 1 mg twice daily. TTE documented LVEF 45-50% with grade 1 diastolic dysfunction. Magdiel was readmitted from June 15- with acute pancreatitis. CT scan was obtained.At the time of the study, there was not significant radiologic evidence of pancreatitis. Hepatic steatosis and splenomegaly were noted. Kidneys were normal in appearance. Symptoms improved within 36 hours. Magdiel denies persistent symptoms. Evaluation for etiology of pancreatitis was notable for elevated triglycerides. Tricor was added. Magdiel was not able to tolerate statin therapy in the past. He does not consume alcohol. Allergies Allergy/AdvReac Type Severity Reaction Status Date / Time Valxrtj-Ute-Jql Reductase AdvReac Intermediate Muscle pain Verified 08/16/18 07:03 Inhibitor Home Medications Home Medications Medication Instructions Recorded Confirmed Type aspirin [Aspir-81] 81 mg PO QAM 12/11/17 08/16/18 History carvedilol 25 mg PO BID 12/11/17 08/16/18 History hydralazine 25 mg PO BID 12/11/17 08/16/18 History isosorbide mononitrate 60 mg PO QAM 12/11/17 08/16/18 History Novolin 70/30 U-100 Insulin 40 unit SUBCUT QAM 06/20/18 08/16/18 History Novolin 70/30 U-100 Insulin 60 unit SUBCUT QPM 06/20/18 08/16/18 History allopurinol 200 mg PO BID 06/20/18 08/16/18 History diclofenac sodium 1 applic TOPICAL BID PRN 06/20/18 08/16/18 History potassium chloride [Klor-Con M20] 20 meq PO QAM #28 tab 06/23/18 08/16/18 Rx furosemide 40 mg PO BID 07/10/18 08/16/18 History oxycodone 5 - 10 mg PO Q4H PRN #40 tab 08/17/18 Rx Patient History Medical History CHF (congestive heart failure) (Chronic) HTN (hypertension) (Chronic) Fatty liver (Chronic) Jijwb-3-dsermmcnrnv deficiency Anemia Chronic kidney disease (CKD) Stage III - Dr. Gasca Baseline Cr 2-2.5 Diabetes mellitus, type 2 IDDM Diverticular disease Glaucoma NO MEDICATIONS. "PRE-GLAUMCOMA" Gout Pancreatitis H/O Pulmonary asbestosis Pulmonary nodules Sleep apnea CPAP Surgical History Fusion of spine CERVICAL (FIRST THREE DISCS AT THE BASE OF NECK). LIMITED MOTION TO THE LEFT, ABLE TO LOOK UP, DOWN, AND TO THE RIGHT. H/O elbow surgery LEFT History of cardiac cath NO STENTS. FOLLOWS WITH DR. HURTADO. 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: No Beliefs That Will Affect Care: None marital status: Current Living Situation: Spouse Other Information That Helps Us Care for You: No Feels Safe at Home: Yes Safety Concerns: Feels Safe At This Time Smoking Status: Current some day smoker Tobacco Type: cigars Cigarettes Per Day: Rare cigar smoker, ~1x month Do You Dip or Chew Tobacco: No Second Hand Exposure: No Tobacco Cessation Education Requested by Patient: No Hx Alcohol Use: No Hx Substance Use: No Review of Systems Review of Systems: All systems reviewed & are unremarkable except as noted in HPI & below Physical Exam Constitutional: + obese and comfortable Eyes: PERRL, conjunctivae normal, anicteric sclerae ENMT: external ear and nose normal, oropharynx normal Neck: trachea midline, no thyromegaly + short neck, + thick neck and + facial hair (Advised) Respiratory: normal respiratory effort Auscultation: lungs clear to auscultation bilaterally Cardiovascular: Rate/Rhythm: regular rate Heart Sounds: no murmur Gastrointestinal (Abdomen): normal bowel sounds, soft, nontender, no hepatosplenomegaly Musculoskeletal: no cyanosis or clubbing, extremities motor strength 5/5 Skin: no rashes, warm and dry Neurologic: moves all extremities Psychiatric: A+Ox3, euthymic affect Orientation: alert and oriented x 3 Results & Data Vital Signs (Past 12 Hours) Vital Signs Temp Pulse Resp BP Pulse Ox 08/17/18 15:00 36.4 C L 66 17 99/62 L 93 08/17/18 12:00 36.5 C 66 16 104/66 93 08/17/18 07:04 36.4 C L 75 18 144/78 H 91 08/17/18 04:10 36.7 C 70 16 132/83 95 Laboratory Results Laboratory Results - last 24 hr 08/16/18 08/16/18 08/16/18 17:22 20:37 23:39 WBC RBC Hgb Hct MCV MCH MCHC RDW Std Deviation RDW Coeff of Junito Plt Count MPV Immature Gran % (Auto) Neut % (Auto) Lymph % (Auto) [place] % (Auto) Eos % (Auto) Baso % (Auto) Immature Gran # (Auto) Neut # (Auto) Lymph # (Auto) [place] # (Auto) Eos # (Auto) Baso # (Auto) Sodium Potassium Chloride Carbon Dioxide Anion Gap BUN Creatinine Est Cr Clr Drug Dosing Est GFR ( Amer) Est GFR (Non-Af Amer) BUN/Creatinine Ratio Glucose POC Glucose 203 H 245 H 204 H Calcium 08/17/18 08/17/18 08/17/18 03:57 05:07 05:07 WBC 11.01 H RBC 4.62 L Hgb 12.9 L Hct 37.0 L MCV 80.1 MCH 27.9 MCHC 34.9 RDW Std Deviation 39.4 RDW Coeff of Junito 13.9 Plt Count 161 MPV 10.3 Immature Gran % (Auto) 0.5 Neut % (Auto) 82.3 Lymph % (Auto) 7.5 [place] % (Auto) 9.5 Eos % (Auto) 0.1 Baso % (Auto) 0.1 Immature Gran # (Auto) 0.05 H Neut # (Auto) 9.06 H Lymph # (Auto) 0.83 L [place] # (Auto) 1.05 H Eos # (Auto) 0.01 Baso # (Auto) 0.01 Sodium 134 L Potassium 3.4 L Chloride 97 L Carbon Dioxide 28 Anion Gap 9.0 BUN 52 H Creatinine 3.56 H Est Cr Clr Drug Dosing 24.8 Est GFR ( Amer) 20.2 Est GFR (Non-Af Amer) 17.4 BUN/Creatinine Ratio 14.6 Glucose 133 H POC Glucose 136 H Calcium 8.5 08/17/18 08/17/18 08/17/18 06:18 08:09 12:18 WBC RBC Hgb Hct MCV MCH MCHC RDW Std Deviation RDW Coeff of Junito Plt Count MPV Immature Gran % (Auto) Neut % (Auto) Lymph % (Auto) [place] % (Auto) Eos % (Auto) Baso % (Auto) Immature Gran # (Auto) Neut # (Auto) Lymph # (Auto) [place] # (Auto) Eos # (Auto) Baso # (Auto) Sodium Potassium Chloride Carbon Dioxide Anion Gap BUN Creatinine Est Cr Clr Drug Dosing Est GFR ( Amer) Est GFR (Non-Af Amer) BUN/Creatinine Ratio Glucose POC Glucose 145 H 161 H 237 H Calcium
--- NOTE | 2018-08-17 15:54 | Hospitalist Progress Note ---
Date of Service August 17, 2018 Assessment & Plan (1) Primary osteoarthritis of left shoulder: - S/p left total shoulder arthroplasty on 08/16/18; POD#1. - Pain control per primary team; avoid NSAIDs or Morphine in setting of CKD. - DVT ppx with Aspirin 81 mg qAM. - PT/OT -- discharge to home once medically stable. (2) Acute renal failure: - Creatinine is significantly increased above baseline (2.0-2.5); level was 3.56 this morning. - Urine sodium, creatinine and u/a all pending collection. - Has not voided since dumas removal this morning; bladder scanned for ~42 mL. Will re-insert dumas for strict monitoring of I/Os. - Discussed case with Dr. Gasca, consult nephrology as inpatient. - Renal US is pending. - Continue Lasix 40 mg BID and monitor volume status very closely. - Was receiving Toradol for pain control -- avoid all NSAIDs and nephrotoxic agents if possible. (3) CKD (chronic kidney disease), stage III: - Follows closely with Dr. Gasca, currently consulted. - Has been very difficult to maintain volume status as outpatient -- takes Lasix 40 mg BID at home with Metolazone prn weight gain. - STEVEN work up as noted above. (4) Type II diabetes mellitus: - Most recent A1C was 7.6 in June 2018. - Pharmacy consulted for glycemic management. (5) Chronic diastolic heart failure: - Most recent TTE showed normal systolic function, grade I diastolic dysfunction. - Volume status is managed by nephrology; has been difficult to maintain. - Will continue Lasix 40 mg PO BID; holding PO metolazone prn. - Monitor daily weights and I/Os very closely. - Continue Coreg as prescribed. (6) Hypertension: - Continue Hydralazine, Imdur, Lasix as prescribed. (7) Gout: - Will continue home Allopurinol 200 mg BID. - Consider renal dosing in setting of STEVEN. (8) Pulmonary asbestosis: - Followed as outpatient. (9) Obstructive sleep apnea: - Has not been able to tolerate CPAP as outpatient. (10) Pulmonary nodules: - 9 mm right suprahilar opacity on most recent CXR> - Will need f/u imaging in 3 months. (11) Ocrer-8-mmshaljttgy deficiency: - Followed as outpatient. (12) Anemia of chronic disease: - Baseline hgb ~12 likely due to anemia of chronic disease in setting of CKD. - Hemoglobin trending down from 15.8 to 12.9 post op, related to intraop blood loss. - Will repeat CBC this afternoon. - Most recent anemia studies were in Jan 2018; consider repeating labs. (13) Electrolyte abnormality: - K level was 3.4 -- ordered KCl 20 mEq PO. - Caution with aggressive replacement in setting of renal failure. (14) DVT prophylaxis: - Compression stockings, SCDs. Pharmacologic ppx per ortho, currently on aspirin 81 mg. Dispo: Will continue to follow, also consulted nephrology. Supervising Physician Co-Signing Physician Notes Attending Attestation: Pt seen/examined, chart reviewed, care plan d/w LEONARDO Diaz. I agree w/ the zuniga components of her documentation. 63yo male s/p left total shoulder replacement. CKD stage 3 at baseline. Now with superimposed STEVNE. Dumas placed back this afternoon due to inability to void. 125cc of urine was immediately obtained. Since that urine was sent for analysis he has made an additional 400cc. He denies dyspnea, orthopnea, LE edema. Denies being thirsty. However, he has been lightheaded with walking today. BPs low-normal gen - obese, NAD mouth - MMM neck - no JVD heart - RRR, s1, s2 lungs - CTA b/l abd - mildly distended, BS+, NT ext - no edema musculo - left shoulder swollen, dressings intact, sling in place Cr now 4 u/a with hyaline casts weight 250 pounds A/P: POD #1 s/p left total shoulder replacement. CKD stage 3 acute blood loss anemia STEVEN - likely ATN volume status somewhat confusing - low-normal BP, acute blood loss, and dizziness all support volume depletion. However, his weight is above his dry weight. fortunately he is making adequate urine. dumas in place. renal u/s pending. updated pt's daughter/ at bedside. await Urine Na and Urine Cr. BMP am. check daily weights. check AM orthostatics. Luis You MD Subjective Mr. Ceron is a 63 year old male with CHF, HTN, Fatty liver, Alpha-1 Anti Trypsin, CKD stage III, Type II DM, Glaucoma, Gout, Abestosis, Obstructive Sleep Apnea, Pulmonary nodules who presented for planned left total shoulder arthroplasty. Pt. was doing well post op, pain well controlled. Dumas was removed this morning; following catheter removal, patient has not voided. Bladder scan showed 42 cc. Creatinine is significantly above baseline. Nephrology was consulted, will continue to follow. Review of Systems Review of Systems: All systems reviewed & are unremarkable except as noted in HPI & below Constitutional: no fever, no chills, no fatigue and no weakness Respiratory: no cough, no dyspnea, no dyspnea on exertion and no wheezing Cardiovascular: no chest pain, no palpitations and no edema Gastrointestinal: + constipation; no abdominal pain and no nausea Genitourinary: + difficulty urinating and + urinary hesitancy; no hematuria Musculoskeletal: + joint pain; no back pain Integumentary: no non-healing lesions Allergy / Immunological: no rash Physical Exam Physical Exam: General: Resting comfortably in no apparent distress; A&OX3 HEENT: NC/AT; PERRLA with EOMI; [place] conjunctiva, MMM. No erythema of posterior pharynx Neck: Supple and nontender Cardiac: RRR w/o murmurs, gallops or rubs Lungs: CTA bilaterally Abdomen: Bowel normoactive X 4; Nontender to palpation Extremities: Warm. +1 bilat non pitting LE edema. Dressing in place over left shoulder. Neuro: No focal weakness Skin: No rash Results & Data Vital Signs (Past 12 Hours) Vital Signs Temp Pulse Resp BP Pulse Ox 08/17/18 15:00 36.4 C L 66 17 99/62 L 93 08/17/18 12:00 36.5 C 66 16 104/66 93 08/17/18 07:04 36.4 C L 75 18 144/78 H 91 08/17/18 04:10 36.7 C 70 16 132/83 95 Laboratory Results 08/17/18 08/17/18 08/17/18 Range/Units 12:18 08:09 06:18 WBC (4.8-10.8) K/uL RBC (4.7-6.1) M/uL Hgb (14.0-18.0) g/dL Hct (42-52) % MCV (80-100) fL MCH (25-34) pg MCHC (32-36) g/dL RDW Std Deviation (36.4-46.3) fL RDW Coeff of Junito (11.5-14.5) % Plt Count (130-400) K/uL MPV (7.4-10.4) fL Immature Gran % (Auto) % Neut % (Auto) % Lymph % (Auto) % [place] % (Auto) % Eos % (Auto) % Baso % (Auto) % Immature Gran # (Auto) (0.00-0.02) K/uL Neut # (Auto) (1.4-6.5) K/uL Lymph # (Auto) (1.2-3.4) K/uL [place] # (Auto) (0.11-0.59) K/uL Eos # (Auto) (0-0.5) K/uL Baso # (Auto) (0-0.2) K/uL Sodium (136-145) mmol/L Potassium (3.5-5.1) mmol/L Chloride (98-107) mmol/L Carbon Dioxide (21-32) mmol/L Anion Gap (3-11) BUN (7-18) mg/dl Creatinine (0.6-1.4) mg/dl Est Cr Clr Drug Dosing ml/min Est GFR ( Amer) Est GFR (Non-Af Amer) BUN/Creatinine Ratio (10-20) Glucose (70-99) mg/dl POC Glucose 237 H 161 H 145 H (70-99) Calcium (8.5-10.1) mg/dl 08/17/18 08/17/18 08/17/18 Range/Units 05:07 05:07 03:57 WBC 11.01 H (4.8-10.8) K/uL RBC 4.62 L (4.7-6.1) M/uL Hgb 12.9 L (14.0-18.0) g/dL Hct 37.0 L (42-52) % MCV 80.1 (80-100) fL MCH 27.9 (25-34) pg MCHC 34.9 (32-36) g/dL RDW Std Deviation 39.4 (36.4-46.3) fL RDW Coeff of Junito 13.9 (11.5-14.5) % Plt Count 161 (130-400) K/uL MPV 10.3 (7.4-10.4) fL Immature Gran % (Auto) 0.5 % Neut % (Auto) 82.3 % Lymph % (Auto) 7.5 % [place] % (Auto) 9.5 % Eos % (Auto) 0.1 % Baso % (Auto) 0.1 % Immature Gran # (Auto) 0.05 H (0.00-0.02) K/uL Neut # (Auto) 9.06 H (1.4-6.5) K/uL Lymph # (Auto) 0.83 L (1.2-3.4) K/uL [place] # (Auto) 1.05 H (0.11-0.59) K/uL Eos # (Auto) 0.01 (0-0.5) K/uL Baso # (Auto) 0.01 (0-0.2) K/uL Sodium 134 L (136-145) mmol/L Potassium 3.4 L (3.5-5.1) mmol/L Chloride 97 L (98-107) mmol/L Carbon Dioxide 28 (21-32) mmol/L Anion Gap 9.0 (3-11) BUN 52 H (7-18) mg/dl Creatinine 3.56 H (0.6-1.4) mg/dl Est Cr Clr Drug Dosing 24.8 ml/min Est GFR ( Amer) 20.2 Est GFR (Non-Af Amer) 17.4 BUN/Creatinine Ratio 14.6 (10-20) Glucose 133 H (70-99) mg/dl POC Glucose 136 H (70-99) Calcium 8.5 (8.5-10.1) mg/dl 08/16/18 08/16/18 08/16/18 Range/Units 23:39 20:37 17:22 WBC (4.8-10.8) K/uL RBC (4.7-6.1) M/uL Hgb (14.0-18.0) g/dL Hct (42-52) % MCV (80-100) fL MCH (25-34) pg MCHC (32-36) g/dL RDW Std Deviation (36.4-46.3) fL RDW Coeff of Junito (11.5-14.5) % Plt Count (130-400) K/uL MPV (7.4-10.4) fL Immature Gran % (Auto) % Neut % (Auto) % Lymph % (Auto) % [place] % (Auto) % Eos % (Auto) % Baso % (Auto) % Immature Gran # (Auto) (0.00-0.02) K/uL Neut # (Auto) (1.4-6.5) K/uL Lymph # (Auto) (1.2-3.4) K/uL [place] # (Auto) (0.11-0.59) K/uL Eos # (Auto) (0-0.5) K/uL Baso # (Auto) (0-0.2) K/uL Sodium (136-145) mmol/L Potassium (3.5-5.1) mmol/L Chloride (98-107) mmol/L Carbon Dioxide (21-32) mmol/L Anion Gap (3-11) BUN (7-18) mg/dl Creatinine (0.6-1.4) mg/dl Est Cr Clr Drug Dosing ml/min Est GFR ( Amer) Est GFR (Non-Af Amer) BUN/Creatinine Ratio (10-20) Glucose (70-99) mg/dl POC Glucose 204 H 245 H 203 H (70-99) Calcium (8.5-10.1) mg/dl
[2018-08-17] MEDS ORDERED: LIDOCAINE 2% JELLY 5 ML TUBE EXT ONE (17:29)
[2018-08-17] MEDS ORDERED: LIDOCAINE 2% JELLY 5 ML TUBE ONE (17:34)
[2018-08-17 18:20] LABS: Hematocrit (blood only) 34.8 % (42-52); Hemoglobin 11.9 g/dL (14.0-18.0)
[2018-08-17 18:33] LABS: Albumin Level 3.2 gm/dl (3.4-5.0); BUN Creatinine Ratio 14.3 (10-20); Calcium 8.5 mg/dl (8.5-10.1); Est GFR (African American) 17.5; Est GFR (Non-African American) 15.1; Magnesium 2.1 mg/dl (1.8-2.4); Potassium 3.2 mmol/L (3.5-5.1)
[2018-08-17 18:36] LABS: Albumin Globulin Ratio 0.9 (0.9-2); Bilirubin,Total 0.8 mg/dl (0.2-1); Globulin 3.5 gm/dl (2.5-4.0); Total Protein 6.7 gm/dl (6.4-8.2)
[2018-08-17 18:36] LABS: Appearance Urine Clear (Clear); Bacteria Urine Automated Negative (Negative); Bilirubin Urine Negative (Negative); Color Urine Yellow; Glucose Urine UA Negative (Negative); Ketones Urine Trace (Negative); Leukocyte Esterase Urine Trace (Negative); Nitrite Urine Negative (Negative); Protein Urine Negative (Negative); Specific Gravity Urine 1.021 (1.000-1.030); Urobilinogen Urine Negative (Negative)
[2018-08-17] MEDS: SENNA 8.6 MG TAB PO SCH (21:50)
[2018-08-17] MEDS: OXYCODONE HCL IR 5 MG TAB (IMMEDIATE RELEASE) PO PRN (22:28)
--- NOTE | 2018-08-17 22:56 | Ultrasound Report ---
US renal/blad retro comp HISTORY: Renal insufficiency STEVEN COMPARISON: None. FINDINGS: Right kidney: Maximum dimension 1.1 cm. No evidence for hydronephrosis. Normal corticomedullary diffe rentiation and cortical thickness. Left kidney: Maximum dimension 11.7 cm. No evidence for hydronephrosis. Normal corticomedullary diff erentiation and cortical thickness. Bladder: No bladder wall thickening. The bilateral ureteral jets were identified. IMPRESSION: Normal renal ultrasound. The above report was generated using voice recognition software. It may contain grammatical, syntax or spelling errors. Electronically signed by: Nilesh Townsend M.D. 08/17/2018 10:53 PM
[2018-08-18 05:52] LABS: Hematocrit (blood only) 32.5 % (42-52); Hemoglobin 11.7 g/dL (14.0-18.0); Mean Corpuscular Volume 78.3 fL (80-100); Mean Platelet Volume 9.6 fL (7.4-10.4); Platelet Count 132 K/uL (130-400); RDW Coefficient of Variation 14.2 % (11.5-14.5); RDW Standard Deviation 39.8 fL (36.4-46.3); Red Blood Count 4.15 M/uL (4.7-6.1); White Blood Count 7.94 K/uL (4.8-10.8)
[2018-08-18] MEDS: ACETAMINOPHEN 500 MG TAB PO SCH ×3 (05:59→20:59)
[2018-08-18] MEDS: OXYCODONE HCL IR 5 MG TAB (IMMEDIATE RELEASE) PO PRN ×3 (06:02→19:16)
[2018-08-18 06:28] LABS: BUN Creatinine Ratio 18.7 (10-20); Calcium 8.1 mg/dl (8.5-10.1); Creatinine Clr Calc Pharmacy 27.7 ml/min; Est GFR (African American) 22.9; Est GFR (Non-African American) 19.7; Magnesium 2.2 mg/dl (1.8-2.4)
[2018-08-18] MEDS ORDERED: POTASSIUM CHLORIDE 20 MEQ TABCR PO STA (07:59)
[2018-08-18] MEDS: MULTIVITAMIN TAB PO SCH (09:00)
[2018-08-18] MEDS: FUROSEMIDE 40 MG TAB PO SCH (09:00)
[2018-08-18] MEDS: CARVEDILOL 25 MG TAB PO SCH ×2 (09:00→20:59)
[2018-08-18] MEDS: ALLOPURINOL 100 MG TAB PO SCH ×2 (09:00→20:59)
[2018-08-18] MEDS: ISOSORBIDE MONO EXTENDED REL 60 MG TABCR PO SCH (09:00)
[2018-08-18] MEDS: ASPIRIN 81 MG ECTAB PO SCH (09:00)
[2018-08-18] MEDS: DOCUSATE SODIUM 100 MG CAP PO SCH ×2 (09:00→20:59)
[2018-08-18] MEDS: INSULIN ASPART 100 UNITS/ML 3 ML PEN SC SCH ×4 (09:02→21:03)
[2018-08-18] MEDS: INSULIN HUMAN NPH SC SCH ×2 (09:02→18:13)
[2018-08-18] MEDS: POLYETHYLENE (MIRALAX) 17 GM PACK PO SCH (09:03)
--- NOTE | 2018-08-18 09:08 | Orthopedic Progress Note ---
Date of Service August 18, 2018 Assessment & Plan (1) Primary osteoarthritis of left shoulder: Overall he is doing fairly well. Is not having too much pain in his left shoulder. He was seen by physical therapy yesterday. He still having a little bit difficulty voiding. He has stage III chronic kidney disease. The hospitalist and the test driller will be managing the Rees catheter. He is orthopedically stable for discharge when medically ready, however we certainly want to make sure that he is able to void and his kidneys are working properly before we discharge him to home. Present on Admission?: Yes Subjective Magdiel was seen and examined at bedside this morning. Overall he is doing fairly well. He is having a little bit of soreness in his left shoulder but is not too bad. Unfortunately he has been having trouble with his kidneys. His creatinine level germain yesterday and he continued to have difficulties voiding. He was seen by a hospitalist as well as the test driller. He had a Rees catheter placed around 6:00 last night. He has not been able to void yet on his own. His creatinine levels improved today but they are still fairly high. Physical Exam Musculoskeletal: On physical examination of the left shoulder, the dressing is clean and dry. He is wearing a sling as instructed. His radial, median, and ulnar nerves are checked and intact his wrist. His axillary nerve is not checked yet. Results & Data Vital Signs (Past 12 Hours) Vital Signs Temp Pulse Pulse Resp BP Pulse Ox 08/18/18 07:33 36.8 C 79 16 150/84 H 90 08/18/18 06:25 122/77 08/18/18 06:24 138/79 08/18/18 06:23 131/74 08/17/18 23:07 36.7 C 73 16 118/67 92 08/17/18 21:45 70 124/72
--- NOTE | 2018-08-18 11:19 | Hospitalist Progress Note ---
Date of Service August 18, 2018 Assessment & Plan (1) Primary osteoarthritis of left shoulder: - S/p left total shoulder arthroplasty on 08/16/18; POD#2. - Pain control per primary team; avoid NSAIDs or Morphine in setting of CKD. - DVT ppx: Aspirin 81 mg qAM. - PT/OT -- discharge to home once medically stable. (2) Acute renal failure: - Creatinine peaked at 4.01 on 08/17, likely ATN in post operative period. Level now trending down, was 3.21 on morning labs. - U/a positive for hyaline casts; FeNa indicates pre-renal state. - Dumas was re-inserted, has had very good urine output overnight. Will remove catheter this afternoon for voiding trial. - Nephrology following, greatly appreciate input. - Renal US was negative for obstruction. - Continue Lasix 40 mg BID; monitor volume status closely. - Avoid all NSAIDs and nephrotoxic agents if possible; was receiving Toradol in post op period. (3) CKD (chronic kidney disease), stage III: - Follows closely with Dr. Gasca, currently consulted. - Has been difficult to maintain volume status as outpatient -- Lasix 40 mg BID with Metolazone prn weight gain. - STEVEN as noted above. (4) Type II diabetes mellitus: - Most recent A1C was 7.6 in June 2018. - Pharmacy consulted for glycemic management. (5) Chronic diastolic heart failure: - Most recent TTE showed normal systolic function, grade I diastolic dysfunction. - Volume status is managed by nephrology. - Continue Lasix 40 mg PO BID; holding PO metolazone prn. - Monitor daily weights and I/Os closely. - Continue Coreg as prescribed. (6) Hypertension: - Continue Hydralazine, Imdur, Lasix as prescribed. (7) Gout: - Continue home Allopurinol 200 mg BID. - Consider renal dosing in setting of STEVEN. (8) Pulmonary asbestosis: - Followed as outpatient. (9) Obstructive sleep apnea: - Has not been able to tolerate CPAP as outpatient. (10) Pulmonary nodules: - 9 mm right suprahilar opacity on most recent CXR. - Will need f/u imaging in 3 months. 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 (12) Anemia of chronic disease: - Baseline hgb ~12 likely due to anemia of chronic disease in setting of CKD. - Hemoglobin trending down post op, no indication for transfusion support. - Most recent anemia studies were in Jan 2018; will repeat iron panel in the morning. (13) Electrolyte abnormality: - K level was 3.0 -- ordered KCl 40 mEq PO. - Caution with aggressive replacement in setting of renal failure. (14) DVT prophylaxis: - Compression stockings, SCDs. Pharmacologic ppx per ortho, currently on aspirin 81 mg. Dispo: Will continue to follow, nephrology following. Supervising Physician Co-Signing Physician Notes Attending Attestation: Chart reviewed, care plan d/w LEONARDO Diaz. I agree w/ the zuniga components of her documentation. 63yo male s/p left total shoulder replacement. POD #2. CKD stage 3 at baseline. Development of superimposed STEVEN yesterday. Likely ATN. Creatinine improved today. UOP markedly improved. Dumas remains. Dr Gasca has lowered lasix dose to 40mg daily. BMP am. Luis You MD Subjective Pt. is doing well today. Dumas placed last evening, had >200-300 cc urine output during placement. He voided a large amount overnight, 550 cc and 1900 cc. Renal function improving on BMP this morning. Renal US was negative. Pt. feels well overall. Has pain in left shoulder, well managed with Oxycodone. Has not had a BM but is passing gas. Denies chest pain, SOB, N/V. He has intermittent dizziness -- states dizziness does occur at home, especially with standing. Orthostatics were negative. Review of Systems Review of Systems: All systems reviewed & are unremarkable except as noted in HPI & below Constitutional: no fever, no chills, no fatigue, no weakness and no anorexia Respiratory: no cough, no dyspnea, no dyspnea on exertion and no wheezing Cardiovascular: + lightheadedness; no chest pain, no palpitations, no syncope and no edema Gastrointestinal: + constipation; no abdominal pain, no nausea and no vomiting Genitourinary: + difficulty urinating and + urinary hesitancy Musculoskeletal: + joint pain; no back pain Integumentary: no non-healing lesions Allergy / Immunological: no rash Physical Exam Physical Exam: General: Resting comfortably in no apparent distress HEENT: NC/AT; PERRLA with EOMI; [place] conjunctiva, MMM. No erythema of posterior pharynx Neck: Supple and nontender Cardiac: RRR Lungs: CTA bilaterally Abdomen: Bowel normoactive X 4; Nontender to palpation Extremities: Warm. No LE edema noted. Dressing in place over left shoulder. Neuro: No focal weakness Skin: No rash : dumas with clear yellow output. Results & Data Vital Signs (Past 12 Hours) Vital Signs Temp Pulse Resp BP Pulse Ox 08/18/18 07:33 36.8 C 79 16 150/84 H 90 08/18/18 06:25 122/77 08/18/18 06:24 138/79 08/18/18 06:23 131/74 Laboratory Results 08/18/18 08/18/18 08/18/18 Range/Units 08:23 05:23 05:23 WBC 7.94 (4.8-10.8) K/uL RBC 4.15 L (4.7-6.1) M/uL Hgb 11.7 L (14.0-18.0) g/dL Hct 32.5 L (42-52) % MCV 78.3 L (80-100) fL MCH 28.2 (25-34) pg MCHC 36.0 (32-36) g/dL RDW Std Deviation 39.8 (36.4-46.3) fL RDW Coeff of Junito 14.2 (11.5-14.5) % Plt Count 132 (130-400) K/uL MPV 9.6 (7.4-10.4) fL Sodium 134 L (136-145) mmol/L Potassium 3.0 L (3.5-5.1) mmol/L Chloride 97 L (98-107) mmol/L Carbon Dioxide 29 (21-32) mmol/L Anion Gap 8.0 (3-11) BUN 60 H (7-18) mg/dl Creatinine 3.21 H D (0.6-1.4) mg/dl Est Cr Clr Drug Dosing 27.7 ml/min Est GFR ( Amer) 22.9 Est GFR (Non-Af Amer) 19.7 BUN/Creatinine Ratio 18.7 (10-20) Glucose 73 (70-99) mg/dl POC Glucose 106 H (70-99) Calcium 8.1 L (8.5-10.1) mg/dl Magnesium 2.2 (1.8-2.4) mg/dl Total Bilirubin (0.2-1) mg/dl AST (15-37) U/L ALT (12-78) U/L Alkaline Phosphatase (45-117) U/L Total Creatine Kinase (39-308) U/L Total Protein (6.4-8.2) gm/dl Albumin (3.4-5.0) gm/dl Globulin (2.5-4.0) gm/dl Albumin/Globulin Ratio (0.9-2) Urine Color Urine Appearance (Clear) Urine pH (4.5-7.5) Ur Specific [place] (1.000-1.030) Urine Protein (Negative) Urine Glucose (UA) (Negative) Urine Ketones (Negative) Urine Blood (Negative) Urine Nitrite (Negative) Urine Bilirubin (Negative) Urine Urobilinogen (Negative) Ur Leukocyte Esterase (Negative) Urine WBC (Auto) (0-5) /hpf Urine RBC (Auto) (0-4) /hpf U Hyaline Cast (Auto) (0-5) /lpf U Epithel Cells (Auto) (0-5) /lpf Urine Bacteria (Auto) (Negative) Ur Random Creatinine mg/dl Ur Random Sodium mmol/L 08/17/18 08/17/18 08/17/18 Range/Units 20:19 18:04 18:04 WBC (4.8-10.8) K/uL RBC (4.7-6.1) M/uL Hgb 11.9 L (14.0-18.0) g/dL Hct 34.8 L (42-52) % MCV (80-100) fL MCH (25-34) pg MCHC (32-36) g/dL RDW Std Deviation (36.4-46.3) fL RDW Coeff of Junito (11.5-14.5) % Plt Count (130-400) K/uL MPV (7.4-10.4) fL Sodium 132 L (136-145) mmol/L Potassium 3.2 L (3.5-5.1) mmol/L Chloride 94 L (98-107) mmol/L Carbon Dioxide 28 (21-32) mmol/L Anion Gap 10.0 (3-11) BUN 58 H (7-18) mg/dl Creatinine 4.01 H D (0.6-1.4) mg/dl Est Cr Clr Drug Dosing 22.0 ml/min Est GFR ( Amer) 17.5 Est GFR (Non-Af Amer) 15.1 BUN/Creatinine Ratio 14.3 (10-20) Glucose 75 (70-99) mg/dl POC Glucose 93 (70-99) Calcium 8.5 (8.5-10.1) mg/dl Magnesium 2.1 (1.8-2.4) mg/dl Total Bilirubin 0.8 (0.2-1) mg/dl AST 21 (15-37) U/L ALT 9 L (12-78) U/L Alkaline Phosphatase 80 (45-117) U/L Total Creatine Kinase 479 H (39-308) U/L Total Protein 6.7 (6.4-8.2) gm/dl Albumin 3.2 L (3.4-5.0) gm/dl Globulin 3.5 (2.5-4.0) gm/dl Albumin/Globulin Ratio 0.9 (0.9-2) Urine Color Urine Appearance (Clear) Urine pH (4.5-7.5) Ur Specific [place] (1.000-1.030) Urine Protein (Negative) Urine Glucose (UA) (Negative) Urine Ketones (Negative) Urine Blood (Negative) Urine Nitrite (Negative) Urine Bilirubin (Negative) Urine Urobilinogen (Negative) Ur Leukocyte Esterase (Negative) Urine WBC (Auto) (0-5) /hpf Urine RBC (Auto) (0-4) /hpf U Hyaline Cast (Auto) (0-5) /lpf U Epithel Cells (Auto) (0-5) /lpf Urine Bacteria (Auto) (Negative) Ur Random Creatinine mg/dl Ur Random Sodium mmol/L 08/17/18 08/17/18 08/17/18 Range/Units 18:00 18:00 18:00 WBC (4.8-10.8) K/uL RBC (4.7-6.1) M/uL Hgb (14.0-18.0) g/dL Hct (42-52) % MCV (80-100) fL MCH (25-34) pg MCHC (32-36) g/dL RDW Std Deviation (36.4-46.3) fL RDW Coeff of Junito (11.5-14.5) % Plt Count (130-400) K/uL MPV (7.4-10.4) fL Sodium (136-145) mmol/L Potassium (3.5-5.1) mmol/L Chloride (98-107) mmol/L Carbon Dioxide (21-32) mmol/L Anion Gap (3-11) BUN (7-18) mg/dl Creatinine (0.6-1.4) mg/dl Est Cr Clr Drug Dosing ml/min Est GFR ( Amer) Est GFR (Non-Af Amer) BUN/Creatinine Ratio (10-20) Glucose (70-99) mg/dl POC Glucose (70-99) Calcium (8.5-10.1) mg/dl Magnesium (1.8-2.4) mg/dl Total Bilirubin (0.2-1) mg/dl AST (15-37) U/L ALT (12-78) U/L Alkaline Phosphatase (45-117) U/L Total Creatine Kinase (39-308) U/L Total Protein (6.4-8.2) gm/dl Albumin (3.4-5.0) gm/dl Globulin (2.5-4.0) gm/dl Albumin/Globulin Ratio (0.9-2) Urine Color Yellow Urine Appearance Clear (Clear) Urine pH 5.0 (4.5-7.5) Ur Specific [place] 1.021 (1.000-1.030) Urine Protein Negative (Negative) Urine Glucose (UA) Negative (Negative) Urine Ketones Trace H (Negative) Urine Blood Negative (Negative) Urine Nitrite Negative (Negative) Urine Bilirubin Negative (Negative) Urine Urobilinogen Negative (Negative) Ur Leukocyte Esterase Trace H (Negative) Urine WBC (Auto) 5-10 H (0-5) /hpf Urine RBC (Auto) 0-4 (0-4) /hpf U Hyaline Cast (Auto) 5-10 H (0-5) /lpf U Epithel Cells (Auto) 5-10 H (0-5) /lpf Urine Bacteria (Auto) Negative (Negative) Ur Random Creatinine 147.0 mg/dl Ur Random Sodium Cancelled 9 mmol/L 08/17/18 08/17/18 Range/Units 17:21 12:18 WBC (4.8-10.8) K/uL RBC (4.7-6.1) M/uL Hgb (14.0-18.0) g/dL Hct (42-52) % MCV (80-100) fL MCH (25-34) pg MCHC (32-36) g/dL RDW Std Deviation (36.4-46.3) fL RDW Coeff of Junito (11.5-14.5) % Plt Count (130-400) K/uL MPV (7.4-10.4) fL Sodium (136-145) mmol/L Potassium (3.5-5.1) mmol/L Chloride (98-107) mmol/L Carbon Dioxide (21-32) mmol/L Anion Gap (3-11) BUN (7-18) mg/dl Creatinine (0.6-1.4) mg/dl Est Cr Clr Drug Dosing ml/min Est GFR ( Amer) Est GFR (Non-Af Amer) BUN/Creatinine Ratio (10-20) Glucose (70-99) mg/dl POC Glucose 124 H 237 H (70-99) Calcium (8.5-10.1) mg/dl Magnesium (1.8-2.4) mg/dl Total Bilirubin (0.2-1) mg/dl AST (15-37) U/L ALT (12-78) U/L Alkaline Phosphatase (45-117) U/L Total Creatine Kinase (39-308) U/L Total Protein (6.4-8.2) gm/dl Albumin (3.4-5.0) gm/dl Globulin (2.5-4.0) gm/dl Albumin/Globulin Ratio (0.9-2) Urine Color Urine Appearance (Clear) Urine pH (4.5-7.5) Ur Specific [place] (1.000-1.030) Urine Protein (Negative) Urine Glucose (UA) (Negative) Urine Ketones (Negative) Urine Blood (Negative) Urine Nitrite (Negative) Urine Bilirubin (Negative) Urine Urobilinogen (Negative) Ur Leukocyte Esterase (Negative) Urine WBC (Auto) (0-5) /hpf Urine RBC (Auto) (0-4) /hpf U Hyaline Cast (Auto) (0-5) /lpf U Epithel Cells (Auto) (0-5) /lpf Urine Bacteria (Auto) (Negative) Ur Random Creatinine mg/dl Ur Random Sodium mmol/L
--- NOTE | 2018-08-18 11:21 | Nephrology Progress Note ---
Date of Service August 18, 2018 Assessment & Plan (1) Acute renal failure: -- Clinically consistent with ATN and post-obstructive STEVEN -- Non-oliguric -- Renal US normal -- Rees may be removed for voiding trial -- Monitor kidney function closely during recovery -- Avoid NSAIDS -- Document strict I/O -- 40 mEq potassium provided for hypokalemia this morning (repeat BMP + Mg ordered for this afternoon) -- Volume status acceptable -- Repeat metabolic profile in the AM -- Diuretics as needed to encourage even fluid balance (2) CKD (chronic kidney disease), stage III: -- Baseline creatinine 2.5 mg/dL (3) Primary osteoarthritis of left shoulder: -- POD # 2 s/p R shoulder artroplasty (4) Chronic diastolic heart failure: -- Volume status acceptable -- Furosemide 40 mg BID -- Daily weights (5) Type II diabetes mellitus: (6) Hypertension: (7) Anemia of chronic disease: -- Hgb 15-->12.9-->11.7 today -- Check iron profile with AM labs -- Monitor with daily H/H Subjective Excellent urine output following Rees catheter placement yesterday. Magdiel feels pain control is adequate. He is breathing comfortably. Edema is improving. No fevers or chills. Overall, he remains anxious but feels fairly well. Review of Systems Review of Systems: All systems reviewed & are unremarkable except as noted in HPI & below Physical Exam Constitutional: WD/WN, vitals as above + obese and comfortable Eyes: PERRL, conjunctivae normal, anicteric sclerae ENMT: Mouth: no dentition abnormality Mallampati Class: III Neck: trachea midline, no thyromegaly + short neck and + thick neck Respiratory: normal respiratory effort Auscultation: lungs clear to auscultation bilaterally Cardiovascular: RRR, no murmur, no edema Rate/Rhythm: regular rate Heart Sounds: no murmur Gastrointestinal (Abdomen): normal bowel sounds, soft, nontender, no hepatosplenomegaly Musculoskeletal: no cyanosis or clubbing, extremities motor strength 5/5 Skin: no rashes, warm and dry Neurologic: moves all extremities Psychiatric: A+Ox3, euthymic affect Orientation: alert and oriented x 3 Results & Data Vital Signs (Past 12 Hours) Vital Signs Temp Pulse Resp BP Pulse Ox 08/18/18 07:33 36.8 C 79 16 150/84 H 90 08/18/18 06:25 122/77 08/18/18 06:24 138/79 08/18/18 06:23 131/74 Laboratory Results Laboratory Results - last 24 hr 08/17/18 08/17/18 08/17/18 12:18 17:21 18:00 WBC RBC Hgb Hct MCV MCH MCHC RDW Std Deviation RDW Coeff of Junito Plt Count MPV Sodium Potassium Chloride Carbon Dioxide Anion Gap BUN Creatinine Est Cr Clr Drug Dosing Est GFR ( Amer) Est GFR (Non-Af Amer) BUN/Creatinine Ratio Glucose POC Glucose 237 H 124 H Calcium Magnesium Total Bilirubin AST ALT Alkaline Phosphatase Total Creatine Kinase Total Protein Albumin Globulin Albumin/Globulin Ratio Urine Color Urine Appearance Urine pH Ur Specific [place] Urine Protein Urine Glucose (UA) Urine Ketones Urine Blood Urine Nitrite Urine Bilirubin Urine Urobilinogen Ur Leukocyte Esterase Urine WBC (Auto) Urine RBC (Auto) U Hyaline Cast (Auto) U Epithel Cells (Auto) Urine Bacteria (Auto) Ur Random Creatinine 147.0 Ur Random Sodium 9 08/17/18 08/17/18 08/17/18 18:00 18:00 18:04 WBC RBC Hgb Hct MCV MCH MCHC RDW Std Deviation RDW Coeff of Junito Plt Count MPV Sodium 132 L Potassium 3.2 L Chloride 94 L Carbon Dioxide 28 Anion Gap 10.0 BUN 58 H Creatinine 4.01 H D Est Cr Clr Drug Dosing 22.0 Est GFR ( Amer) 17.5 Est GFR (Non-Af Amer) 15.1 BUN/Creatinine Ratio 14.3 Glucose 75 POC Glucose Calcium 8.5 Magnesium 2.1 Total Bilirubin 0.8 AST 21 ALT 9 L Alkaline Phosphatase 80 Total Creatine Kinase 479 H Total Protein 6.7 Albumin 3.2 L Globulin 3.5 Albumin/Globulin Ratio 0.9 Urine Color Yellow Urine Appearance Clear Urine pH 5.0 Ur Specific [place] 1.021 Urine Protein Negative Urine Glucose (UA) Negative Urine Ketones Trace H Urine Blood Negative Urine Nitrite Negative Urine Bilirubin Negative Urine Urobilinogen Negative Ur Leukocyte Esterase Trace H Urine WBC (Auto) 5-10 H Urine RBC (Auto) 0-4 U Hyaline Cast (Auto) 5-10 H U Epithel Cells (Auto) 5-10 H Urine Bacteria (Auto) Negative Ur Random Creatinine Ur Random Sodium Cancelled 08/17/18 08/17/18 08/18/18 18:04 20:19 05:23 WBC 7.94 RBC 4.15 L Hgb 11.9 L 11.7 L Hct 34.8 L 32.5 L MCV 78.3 L MCH 28.2 MCHC 36.0 RDW Std Deviation 39.8 RDW Coeff of Junito 14.2 Plt Count 132 MPV 9.6 Sodium Potassium Chloride Carbon Dioxide Anion Gap BUN Creatinine Est Cr Clr Drug Dosing Est GFR ( Amer) Est GFR (Non-Af Amer) BUN/Creatinine Ratio Glucose POC Glucose 93 Calcium Magnesium Total Bilirubin AST ALT Alkaline Phosphatase Total Creatine Kinase Total Protein Albumin Globulin Albumin/Globulin Ratio Urine Color Urine Appearance Urine pH Ur Specific [place] Urine Protein Urine Glucose (UA) Urine Ketones Urine Blood Urine Nitrite Urine Bilirubin Urine Urobilinogen Ur Leukocyte Esterase Urine WBC (Auto) Urine RBC (Auto) U Hyaline Cast (Auto) U Epithel Cells (Auto) Urine Bacteria (Auto) Ur Random Creatinine Ur Random Sodium 08/18/18 08/18/18 05:23 08:23 WBC RBC Hgb Hct MCV MCH MCHC RDW Std Deviation RDW Coeff of Junito Plt Count MPV Sodium 134 L Potassium 3.0 L Chloride 97 L Carbon Dioxide 29 Anion Gap 8.0 BUN 60 H Creatinine 3.21 H D Est Cr Clr Drug Dosing 27.7 Est GFR ( Amer) 22.9 Est GFR (Non-Af Amer) 19.7 BUN/Creatinine Ratio 18.7 Glucose 73 POC Glucose 106 H Calcium 8.1 L Magnesium 2.2 Total Bilirubin AST ALT Alkaline Phosphatase Total Creatine Kinase Total Protein Albumin Globulin Albumin/Globulin Ratio Urine Color Urine Appearance Urine pH Ur Specific [place] Urine Protein Urine Glucose (UA) Urine Ketones Urine Blood Urine Nitrite Urine Bilirubin Urine Urobilinogen Ur Leukocyte Esterase Urine WBC (Auto) Urine RBC (Auto) U Hyaline Cast (Auto) U Epithel Cells (Auto) Urine Bacteria (Auto) Ur Random Creatinine Ur Random Sodium
[2018-08-18 16:51] LABS: BUN Creatinine Ratio 16.1 (10-20); Calcium 8.4 mg/dl (8.5-10.1); Creatinine Clr Calc Pharmacy 26.1 ml/min; Est GFR (African American) 21.5; Est GFR (Non-African American) 18.5; Magnesium 2.1 mg/dl (1.8-2.4); Potassium 3.6 mmol/L (3.5-5.1)
[2018-08-18] MEDS: SENNA 8.6 MG TAB PO SCH (20:59)
[2018-08-19] MEDS: OXYCODONE HCL IR 5 MG TAB (IMMEDIATE RELEASE) PO PRN ×4 (03:55→20:40)
[2018-08-19] MEDS: ACETAMINOPHEN 500 MG TAB PO SCH ×3 (05:13→22:26)
[2018-08-19 05:39] LABS: Hematocrit (blood only) 33.1 % (42-52); Hemoglobin 11.5 g/dL (14.0-18.0); Mean Corpuscular Hgb Conc 34.7 g/dL (32-36); Mean Corpuscular Volume 80.1 fL (80-100); Mean Platelet Volume 9.7 fL (7.4-10.4); Platelet Count 140 K/uL (130-400); RDW Coefficient of Variation 14.4 % (11.5-14.5); RDW Standard Deviation 41.3 fL (36.4-46.3); Red Blood Count 4.13 M/uL (4.7-6.1); White Blood Count 6.54 K/uL (4.8-10.8)
[2018-08-19 06:07] LABS: BUN Creatinine Ratio 18.1 (10-20); Calcium 8.5 mg/dl (8.5-10.1); Creatinine Clr Calc Pharmacy 29.1 ml/min; Est GFR (African American) 24.6; Est GFR (Non-African American) 21.3; Magnesium 2.5 mg/dl (1.8-2.4); Potassium 3.4 mmol/L (3.5-5.1)
[2018-08-19] MEDS: FUROSEMIDE 40 MG TAB PO SCH (07:54)
[2018-08-19] MEDS: ISOSORBIDE MONO EXTENDED REL 60 MG TABCR PO SCH (07:54)
[2018-08-19] MEDS: MULTIVITAMIN TAB PO SCH (07:54)
[2018-08-19] MEDS: DOCUSATE SODIUM 100 MG CAP PO SCH ×2 (07:55→20:46)
[2018-08-19] MEDS: ALLOPURINOL 100 MG TAB PO SCH ×2 (07:55→20:46)
[2018-08-19] MEDS: CARVEDILOL 25 MG TAB PO SCH ×2 (07:55→20:47)
[2018-08-19] MEDS: ASPIRIN 81 MG ECTAB PO SCH (07:55)
[2018-08-19] MEDS: POLYETHYLENE (MIRALAX) 17 GM PACK PO SCH (07:56)
[2018-08-19] MEDS ORDERED: POTASSIUM CHLORIDE 20 MEQ TABCR PO ONE (08:15)
[2018-08-19] MEDS: INSULIN ASPART 100 UNITS/ML 3 ML PEN SC SCH ×4 (08:26→21:40)
[2018-08-19] MEDS: INSULIN HUMAN NPH SC SCH ×2 (08:27→18:43)
[2018-08-19] MEDS: IRON SUCROSE 200 MG in 0.9 % SODIUM CHLORIDE 100 ML IV SCH (10:19)
--- NOTE | 2018-08-19 10:29 | Pharmacy Report ---
Pharmacy Glycemic Short Note 2 - Date of Service August 19, 2018 - Glycemic Short BSG Results (Last 24 hours): 08/18/18 08/18/18 08/18/18 12:22 16:07 17:14 Glucose 161 H POC Glucose 197 H 177 H 08/18/18 08/19/18 08/19/18 20:54 05:09 08:14 Glucose 89 POC Glucose 158 H 114 H OUTPATIENT ANTIDIABETIC REGIMEN: * 70/30 40-45units QAM, 60-65units QPM * A1c = 7.6 % 07/17/18 ASSESSMENT: 08/19 * Mr. Ceron received 85 units of insulin yesterday (45 of this being basal) * Fasting BSG has improved from yesterday (73 -> 89) but patient had received > 50 units of basal insulin on the previous few days * I'm anticipating basal requirements to be ~50 units per day * Postprandial BSGs were slightly above goal yesterday so I tightened CR slightly this AM. Pre-lunch BSG is at 101 mg/dL so will loosen back to previously ordered CR. 08/17 * Outpatient regimen is premixed basal/prandial insulin of 70/30 (NPH/Regular) mix insulin. * Pre-mixed insulin is difficult to titrate since it is already in a fixed distribution of basal:prandial insulin. Continuing pre-mixed insulin for admission typically lead to hypoglycemia d/t changing PO status but rapid acting insulin is unable to be held. * Home regimen held for admission per pharmacy consult. Will utilize recommended regimen of SQ basal bolus insulin regimen with NPH + NovoLog (CF+CR) * Pt has received 89 units of insulin over the past 24hrs * This is c/w outpatient dosing of ~ 100 units/day * AM fsting BSG is in goal range at 145 mg/dl --> no hcanges needed to basal insulin dosing * Post-prandial BSGs slightly elevated post-op yesterday - this may be secondary to no insulin given GIFT PACKER. Will continue current orders as BSGs are trending down. Will adjust parameters if sustained hyperglycemia occurs. * Goal is to maintain BSGs <200 mg/dl (ideally <150 mg/dl) to prevent post op complications PLAN FOR INPATIENT GLYCEMIC CONTROL: * Basal insulin - no change. Anticipating basal requirements to be ~50 units/day so can most likely provide a set dose starting tomorrow * NPH SQ BID per the following scale * 20 units for BSG < 110 * 25 units for BSG 110-180 * 30 units for BSG > 180 * Bolus insulin - no change * NovoLog per scale ACHS or Q6hrs while NPO * Goal Range: Low 110 mg/dL - High 140 mg/dL * Correction Factor: 15 mg/dL/unit * Nutritional / Prandial insulin per carb ratio of 1 unit per 5 grams CHO consumed PLAN FOR DISCHARGE: * A1c is in goal range. Pt may resume outpatient insulin dosing at tn.
--- NOTE | 2018-08-19 11:56 | Nephrology Progress Note ---
Date of Service August 19, 2018 Assessment & Plan (1) Acute renal failure: -- Clinically consistent with ATN and post-obstructive STEVEN -- Non-oliguric -- Renal US normal -- Volume status appropriate -- Creatinine continues to improve -- Avoid NSAIDS -- Document strict I/O -- Repeat metabolic profile in the AM -- Unfortunately Magdiel continues to experience some urinary retention post removal of Rees today, suggest adding an alpha ponce (i.e. tamsulosin) and recheck PVR (2) CKD (chronic kidney disease), stage III: -- Baseline creatinine 2.5 mg/dL (3) Primary osteoarthritis of left shoulder: -- POD # 3 s/p R shoulder arthroplasty (4) Chronic diastolic heart failure: -- Volume status acceptable -- Furosemide 40 mg BID switched to once daily yesterday, patient remains in appropriate fluid balance -- Daily weights (5) Type II diabetes mellitus: (6) Hypertension: (7) Anemia of chronic disease: -- Hgb stable -- Iron levels low -- Venofer 200 mg daily started today Subjective Magdiel is frustrated. He feels well. He noted some dyspnea with exertion. Rees removed around 8 AM. Unfortunately, he continues to experience sensation of incomplete void. Pain is well controlled. He is breathing comfortably at rest. No lightheadedness or dizziness. Review of Systems Review of Systems: All systems reviewed & are unremarkable except as noted in HPI & below Physical Exam Constitutional: WD/WN, vitals as above + obese and comfortable Eyes: PERRL, conjunctivae normal, anicteric sclerae ENMT: Mouth: no dentition abnormality Mallampati Class: III Neck: trachea midline, no thyromegaly + short neck and + thick neck Respiratory: normal respiratory effort Auscultation: lungs clear to auscultation bilaterally Cardiovascular: RRR, no murmur, no edema Rate/Rhythm: regular rate Heart Sounds: no murmur Vessels: no carotid bruit Gastrointestinal (Abdomen): normal bowel sounds, soft, nontender, no hepatosplenomegaly Musculoskeletal: no cyanosis or clubbing, extremities motor strength 5/5 Skin: no rashes, warm and dry Neurologic: moves all extremities Psychiatric: A+Ox3, euthymic affect Orientation: alert and oriented x 3 Results & Data Vital Signs (Past 12 Hours) Vital Signs Temp Pulse Resp BP Pulse Ox 08/19/18 07:00 36.7 C 76 18 117/69 94 Laboratory Results Laboratory Results - last 24 hr 08/18/18 08/18/18 08/18/18 12:22 16:07 17:14 WBC RBC Hgb Hct MCV MCH MCHC RDW Std Deviation RDW Coeff of Junito Plt Count MPV Sodium 135 L Potassium 3.6 D Chloride 97 L Carbon Dioxide 27 Anion Gap 11.0 BUN 54 H Creatinine 3.38 H Est Cr Clr Drug Dosing 26.1 Est GFR ( Amer) 21.5 Est GFR (Non-Af Amer) 18.5 BUN/Creatinine Ratio 16.1 Glucose 161 H POC Glucose 197 H 177 H Calcium 8.4 L Magnesium 2.1 Iron TIBC Transferrin Transferrin % Sat Ferritin 08/18/18 08/19/18 08/19/18 20:54 05:09 05:09 WBC 6.54 RBC 4.13 L Hgb 11.5 L Hct 33.1 L MCV 80.1 MCH 27.8 MCHC 34.7 RDW Std Deviation 41.3 RDW Coeff of [place]ito 14.4 Plt Count 140 MPV 9.7 Sodium 137 Potassium 3.4 L Chloride 99 Carbon Dioxide 29 Anion Gap 9.0 BUN 55 H Creatinine 3.02 H D Est Cr Clr Drug Dosing 29.1 Est GFR ( Amer) 24.6 Est GFR (Non-Af Amer) 21.3 BUN/Creatinine Ratio 18.1 Glucose 89 POC Glucose 158 H Calcium 8.5 Magnesium 2.5 H Iron 25 L TIBC 247 L Transferrin 206 Transferrin % Sat 9 L Ferritin 86.0 08/19/18 08:14 WBC RBC Hgb Hct MCV MCH MCHC RDW Std Deviation RDW Coeff of [place] Plt Count MPV Sodium Potassium Chloride Carbon Dioxide Anion Gap BUN Creatinine Est Cr Clr Drug Dosing Est GFR ( Amer) Est GFR (Non-Af Amer) BUN/Creatinine Ratio Glucose POC Glucose 114 H Calcium Magnesium Iron TIBC Transferrin Transferrin % Sat Ferritin
[2018-08-19] MEDS ORDERED: TAMSULOSIN HCL 0.4 MG CAP PO ONE (13:00)
--- NOTE | 2018-08-19 13:05 | XRay Report ---
XR chest 1V portable CLINICAL HISTORY: sob dyspnea COMPARISON STUDY: 07/17/2018 FINDINGS: Interval development of a left basilar infiltrate and atelectasis. Lungs otherwise appear c lear. Interval left shoulder arthroplasty. IMPRESSION: Infiltrate/atelectasis left base. The above report was generated using voice recognition software. It may contain grammatical, syntax or spelling errors. Electronically signed by: Nilesh Townsend M.D. 08/19/2018 1:03 PM
--- NOTE | 2018-08-19 14:45 | CT Scan Report ---
CT chest wo con CT DOSE: 1240.51 mGy.cm HISTORY: HISTORY: Of sob TECHNIQUE: Multiaxial CT images of the chest were performed without contrast. A dose lowering techni que was utilized adhering to the principles of ALARA. COMPARISON: 04/25/2016 FINDINGS: Interval total left shoulder arthroplasty. Consolidative infiltrate left lower lobe. Lungs otherwise appear clear. Minimal atelectasis medial aspect right pulmonary apex. No significant mediastinal or hilar adenopathy. Calcification of the coronary arterial vasculature. L imited evaluation the upper abdomen is unremarkable. IMPRESSION: 1. Consolidative infiltrate left lower lobe. 2. Minimal platelike atelectasis right apex. The above report was generated using voice recognition software. It may contain grammatical, syntax or spelling errors. Electronically signed by: Nilesh Townsend M.D. 08/19/2018 2:43 PM
--- NOTE | 2018-08-19 15:45 | Hospitalist Progress Note ---
Date of Service August 19, 2018 Assessment & Plan (1) Primary osteoarthritis of left shoulder: - S/p left total shoulder arthroplasty on 08/16/18 - Pain control per primary team; avoid NSAIDs or Morphine in setting of CKD. - DVT ppx: Aspirin 81 mg qAM. - PT/OT -- discharge to home once medically stable. (2) Acute renal failure: - Creatinine peaked at 4.01 on 08/17, likely ATN in post operative period. Level now trending down, baseline Creat per nephro is 2.5 - U/a positive for hyaline casts; FeNa indicates pre-renal state. - Rees DC'd this morning - patient is voiding about 150 mls with 150 mls residual at a time. He is adamant he not be recatheterized. Tamsulosin started - Nephrology following, greatly appreciate input. - Renal US was negative for obstruction. - Continue Lasix 40 mg BID; monitor volume status closely. - Avoid all NSAIDs and nephrotoxic agents if possible; was receiving Toradol in post op period. (3) Pneumonia: complaints today of sob with diaphoresis EKG with NSR and RBBB Abnormal CXR - Chest CT wo contrast showing consolidative infiltrate left lower lobe Start IV levaquin, MRSA swab nares Patient is on RA Duonebs (4) CKD (chronic kidney disease), stage III: - Follows closely with Dr. Gasca, currently consulted. - Has been difficult to maintain volume status as outpatient -- Lasix 40 mg BID with Metolazone prn weight gain. - STEVEN as noted above. (5) Type II diabetes mellitus: - Most recent A1C was 7.6 in June 2018. - Pharmacy consulted for glycemic management. (6) Chronic diastolic heart failure: - Most recent TTE showed normal systolic function, grade I diastolic dysfunction. - Volume status is managed by nephrology. - Continue Lasix 40 mg PO BID; holding PO metolazone prn. - Monitor daily weights and I/Os closely. - Continue Coreg as prescribed. (7) Hypertension: - Continue Hydralazine, Imdur, Lasix as prescribed. (8) Gout: - Continue home Allopurinol 200 mg BID. - Consider renal dosing in setting of STEVEN. (9) Pulmonary asbestosis: - Followed as outpatient. (10) Obstructive sleep apnea: - Has not been able to tolerate CPAP as outpatient. (11) Pulmonary nodules: - 9 mm right suprahilar opacity on CXR 07/17 likely representing vascular summation. Not mentioned in 08/19 CT or CXR. - May want to consider imaging in 3 months after acute illness is over. 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 (13) Anemia of chronic disease: - Baseline hgb ~12 likely due to anemia of chronic disease in setting of CKD. - Hemoglobin trending down post op, no indication for transfusion support. - Most recent anemia studies were in Jan 2018; repeat iron low - transfused Venofer daily per nephro (14) Electrolyte abnormality: -replaced (15) DVT prophylaxis: - Compression stockings, SCDs. Pharmacologic ppx per ortho, currently on aspirin 81 mg. Dispo: hopefully home tomorrow. Subjective Mr. Ceron reports that he is having SOB with diaphoresis. He has been having workup outpatient for SOB but reports this felt different. Upon seeing results of CT showing consolidation, his discharge was put on hold. Mr. Ceron is very disappointed that he is not being discharged today. I did spend time bedside explaining plan of care. He is adamant he not be recatheteri zed for any reason. He is agreeable to staying one more night. Hopefully he'll be ok for discharge tomorrow. Review of Systems Review of Systems: All systems reviewed & are unremarkable except as noted in HPI & below Physical Exam Physical Exam: General: no distress Eyes: normal inspection, PERLL Respiratory: chest non tender, faint crackles left lower lobe, no respiratory distress, no accessory muscle use Cardiac: regular rate and rhythm, no rub or gallop, no murmur, no edema, no jvd GI/: active bowel sounds, no abd pain or tenderness, soft, non distended Extremities: normal range of motion, normal strength, non tender Neuro:oriented x 3, moves all extremities Psych: alert, normal mood and affect Skin: normal color, dry Results & Data Vital Signs (Past 12 Hours) Vital Signs Temp Pulse Pulse Resp BP Pulse Ox 08/19/18 15:11 36.9 C 78 17 151/93 H 93 08/19/18 14:07 36.7 C 79 76 18 117/69 94 08/19/18 07:00 36.7 C 76 18 117/69 94
[2018-08-19] MEDS ORDERED: LEVOFLOXACIN/D5W 750 MG/150 ML BAG IV SCH (16:00)
[2018-08-19] MEDS: ALBUT/IPRATROP 3MG/0.5MG NEB 3 ML VIAL NEB SCH (19:57)
[2018-08-19] MEDS: SENNA 8.6 MG TAB PO SCH (20:47)
[2018-08-20] MEDS: OXYCODONE HCL IR 5 MG TAB (IMMEDIATE RELEASE) PO PRN ×3 (01:08→10:13)
[2018-08-20] MEDS: ACETAMINOPHEN 500 MG TAB PO SCH (06:00)
--- NOTE | 2018-08-20 06:21 | Orthopedic Progress Note ---
Date of Service August 20, 2018 Assessment & Plan (1) Primary osteoarthritis of left shoulder: Overall he is doing much better. He is urinating without the Rees catheter. He says he no longer feels short of breath. He will get some physical therapy for his left shoulder this morning. He is orthopedically stable for discharge when medically ready. He is currently on IV Levaquin for a pneumonia. Present on Admission?: Yes Subjective Magdiel was seen and examined at bedside this morning. Overall he is doing much better. He was placed on tamsulosin and has been urinating easily. He says he has been walking up to the bathroom and back without any shortness of breath. He states he feels well. He is having a little bit of soreness in his left shoulder which is to be expected. Physical Exam Musculoskeletal: On physical examination of the left shoulder, the dressing had been changed. The current dressing is clean and dry. His radial, median, and ulnar nerves are checked and intact his wrist. His axillary nerve was not definitively checked yet. He is wearing his sling as instructed. Results & Data Vital Signs (Past 12 Hours) Vital Signs Temp Pulse Pulse Resp BP Pulse Ox 08/20/18 06:12 36.9 C 79 18 94 08/19/18 22:47 37.1 C 81 16 116/67 92 08/19/18 20:45 88 161/76 H 92 08/19/18 19:57 87 18 86 L
[2018-08-20 06:42] LABS: BUN Creatinine Ratio 19.7 (10-20); Calcium 8.5 mg/dl (8.5-10.1); Creatinine Clr Calc Pharmacy 36.9 ml/min; Est GFR (African American) 31.9; Est GFR (Non-African American) 27.5; Potassium 3.7 mmol/L (3.5-5.1)
[2018-08-20] MEDS: ALBUT/IPRATROP 3MG/0.5MG NEB 3 ML VIAL NEB SCH (07:16)
--- NOTE | 2018-08-20 07:50 | Anesthesiology Progress Note ---
Date of Service August 20, 2018 Anesthesia Post Procedure Vital Signs Vital Signs: Temp Pulse Pulse Resp BP Pulse Ox 08/20/18 07:16 78 16 96 08/20/18 06:12 36.9 C 79 18 94 08/19/18 22:47 37.1 C 81 16 116/67 92 08/19/18 20:45 88 161/76 H 92 08/19/18 19:57 87 18 86 L 08/19/18 15:11 36.9 C 78 17 151/93 H 93 08/19/18 14:07 36.7 C 79 76 18 117/69 94 Pain Intensity Left Shoulder: Pain Intensity: 7 Notes Mental Status: alert / awake / arousable and participated in evaluation Patient Amnestic to Procedure: Yes Nausea / Vomiting: adequately controlled Pain: adequately controlled Airway Patency, RR, SpO2: stable & adequate BP & HR: stable & adequate Hydration State: stable & adequate Anesthetic Complications: no major complications apparent and Pt Satisfied with anesthetic care
[2018-08-20] MEDS: MULTIVITAMIN TAB PO SCH (08:37)
[2018-08-20] MEDS: DOCUSATE SODIUM 100 MG CAP PO SCH (08:40)
[2018-08-20] MEDS: ALLOPURINOL 100 MG TAB PO SCH (08:40)
[2018-08-20] MEDS: ISOSORBIDE MONO EXTENDED REL 60 MG TABCR PO SCH (08:40)
[2018-08-20] MEDS: CARVEDILOL 25 MG TAB PO SCH (08:40)
[2018-08-20] MEDS: ASPIRIN 81 MG ECTAB PO SCH (08:41)
[2018-08-20] MEDS: FUROSEMIDE 40 MG TAB PO SCH (08:41)
[2018-08-20] MEDS: INSULIN ASPART 100 UNITS/ML 3 ML PEN SC SCH ×2 (08:43→12:44)
[2018-08-20] MEDS: INSULIN HUMAN NPH SC SCH (08:46)
[2018-08-20] MEDS ORDERED: TAMSULOSIN HCL 0.4 MG CAP PO SCH (09:00)
--- NOTE | 2018-08-20 09:55 | Consultation ---
Date of Consultation August 20, 2018 Assessment & Plan (1) Primary osteoarthritis of left shoulder: - S/p left total shoulder arthroplasty on 08/16/18 - Pain control per primary team; avoid NSAIDs or Morphine in setting of CKD. - DVT ppx: Aspirin 81 mg qAM. - PT/OT -- discharge to home once medically stable. (2) Acute renal failure: - Creatinine peaked at 4.01 on 08/17, likely ATN in post operative period. Level now trending down, baseline Creat per nephro is 2.5 - U/a positive for hyaline casts; FeNa indicates pre-renal state. - Rees DC'd this morning - patient is voiding about 150 mls with 150 mls residual at a time. He is adamant he not be recatheterized. Tamsulosin started - Nephrology following, greatly appreciate input. - Renal US was negative for obstruction. - Continue Lasix 40 mg BID; monitor volume status closely. - Avoid all NSAIDs and nephrotoxic agents if possible; was receiving Toradol in post op period. (3) Pneumonia: complaints today of sob with diaphoresis EKG with NSR and RBBB Abnormal CXR - Chest CT wo contrast showing consolidative infiltrate left lower lobe Start IV levaquin, MRSA swab nares Patient is on RA Duonebs (4) CKD (chronic kidney disease), stage III: - Follows closely with Dr. Gasca, currently consulted. - Has been difficult to maintain volume status as outpatient -- Lasix 40 mg BID with Metolazone prn weight gain. - STEVEN as noted above. (5) Type II diabetes mellitus: - Most recent A1C was 7.6 in June 2018. - Pharmacy consulted for glycemic management. (6) Chronic diastolic heart failure: - Most recent TTE showed normal systolic function, grade I diastolic dysfunction. - Volume status is managed by nephrology. - Continue Lasix 40 mg PO BID; holding PO metolazone prn. - Monitor daily weights and I/Os closely. - Continue Coreg as prescribed. (7) Hypertension: - Continue Hydralazine, Imdur, Lasix as prescribed. (8) Gout: - Continue home Allopurinol 200 mg BID. - Consider renal dosing in setting of STEVEN. (9) Pulmonary asbestosis: - Followed as outpatient. (10) Obstructive sleep apnea: - Has not been able to tolerate CPAP as outpatient. (11) Pulmonary nodules: - 9 mm right suprahilar opacity on CXR 07/17 likely representing vascular summation. Not mentioned in 08/19 CT or CXR. - May want to consider imaging in 3 months after acute illness is over. (12) Unfcr-6-fcptqxctwkq deficiency: - Followed as outpatient. (13) Anemia of chronic disease: - Baseline hgb ~12 likely due to anemia of chronic disease in setting of CKD. - Hemoglobin trending down post op, no indication for transfusion support. - Most recent anemia studies were in Jan 2018; repeat iron low - transfused Venofer daily per nephro (14) Electrolyte abnormality: -replaced (15) DVT prophylaxis: - Compression stockings, SCDs. Pharmacologic ppx per ortho, currently on aspirin 81 mg. Dispo: hopefully home tomorrow. History of Present Illness Mr. Ceron is feeling much better this morning. His breathing improved significantly which he attributes to the inhalers he was given. He has a mild cough. Attending Physician: Malcolm Adkins DO Allergies Allergy/AdvReac Type Severity Reaction Status Date / Time Fnstmlx-Omy-Ols Reductase AdvReac Intermediate Muscle pain Verified 08/16/18 07:03 Inhibitor Home Medications Home Medications Medication Instructions Recorded Confirmed Type aspirin [Aspir-81] 81 mg PO QAM 12/11/17 08/16/18 History carvedilol 25 mg PO BID 12/11/17 08/16/18 History hydralazine 25 mg PO BID 12/11/17 08/16/18 History isosorbide mononitrate 60 mg PO QAM 12/11/17 08/16/18 History Novolin 70/30 U-100 Insulin 40 unit SUBCUT QAM 06/20/18 08/16/18 History Novolin 70/30 U-100 Insulin 60 unit SUBCUT QPM 06/20/18 08/16/18 History allopurinol 200 mg PO BID 06/20/18 08/16/18 History diclofenac sodium 1 applic TOPICAL BID PRN 06/20/18 08/16/18 History potassium chloride [Klor-Con M20] 20 meq PO QAM #28 tab 06/23/18 08/16/18 Rx furosemide 40 mg PO BID 07/10/18 08/16/18 History oxycodone 5 - 10 mg PO Q4H PRN #40 tab 08/17/18 Rx ipratropium-albuterol [Combivent 1 puff INHALATION QID #1 inhaler 08/20/18 Rx Respimat] levofloxacin 750 mg PO Q2D 6 Days #3 tab 08/20/18 Rx tamsulosin 0.4 mg PO QAM #30 cap 08/20/18 Rx Patient History Medical History CHF (congestive heart failure) (Chronic) HTN (hypertension) (Chronic) Fatty liver (Chronic) Ixdwx-3-wrydswsxhiv deficiency Anemia Chronic kidney disease (CKD) Stage III - Dr. Gasca Baseline Cr 2-2.5 Diabetes mellitus, type 2 IDDM Diverticular disease Glaucoma NO MEDICATIONS. "PRE-GLAUMCOMA" Gout Pancreatitis H/O Pulmonary asbestosis Pulmonary nodules Sleep apnea CPAP Surgical History Fusion of spine CERVICAL (FIRST THREE DISCS AT THE BASE OF NECK). LIMITED MOTION TO THE LEFT, ABLE TO LOOK UP, DOWN, AND TO THE RIGHT. H/O elbow surgery LEFT History of cardiac cath NO STENTS. FOLLOWS WITH DR. PRYOR. History of colonoscopy History of esophagogastroduodenoscopy (EGD) History of tonsillectomy S/P Achilles tendon repair LEFT Family History Grandmother Family history of diabetes mellitus Uncle Family history of diabetes mellitus Social History Preferred Language: Hungarian Communication Ability: Effective Information Assoc Required: No Beliefs That Will Affect Care: None marital status: Current Living Situation: Spouse Other Information That Helps Us Care for You: No Feels Safe at Home: Yes Safety Concerns: Feels Safe At This Time Smoking Status: Current some day smoker Tobacco Type: cigars Cigarettes Per Day: Rare cigar smoker, ~1x month Do You Dip or Chew Tobacco: No Second Hand Exposure: No Tobacco Cessation Education Requested by Patient: No Hx Alcohol Use: No Hx Substance Use: No Results & Data Vital Signs (Past 12 Hours) Vital Signs Temp Pulse Pulse Pulse Pulse Pulse Resp 08/20/18 09:38 90 86 82 05/28/19 07:16 78 16 08/20/18 06:12 36.9 C 79 18 08/19/18 22:47 37.1 C 81 16 Resp Resp Resp BP Pulse Ox Pulse Ox Pulse Ox 08/20/18 09:38 18 18 16 93 94 08/20/18 07:16 96 08/20/18 06:12 94 08/19/18 22:47 116/67 92 Pulse Ox 08/20/18 09:38 94 08/20/18 07:16 08/20/18 06:12 08/19/18 22:47
--- NOTE | 2018-08-20 09:58 | Hospitalist Progress Note ---
Date of Service August 20, 2018 Assessment & Plan (1) Primary osteoarthritis of left shoulder: - S/p left total shoulder arthroplasty on 08/16/18 - Pain control per primary team; avoid NSAIDs or Morphine in setting of CKD. - DVT ppx per surgery: Aspirin 81 mg qAM. - PT/OT -- discharge to home once medically stable. (2) Acute renal failure: - Creatinine peaked at 4.01 on 08/17, likely ATN in post operative period. Level now trending down, baseline Creat per nephro is 2.5 and today he is at 2.44 - U/a positive for hyaline casts; FeNa indicates pre-renal state. - Rees DC'd 08/19- patient is voiding about 150 mls with 150 mls residual at a time. He is adamant he not be recatheterized. Tamsulosin started and output improved. Patient no longer feels he is incompletely voiding - Nephrology following, greatly appreciate input. - Renal US was negative for obstruction. - Continue Lasix 40 mg BID; monitor volume status closely. Patient up 5 kg this morning which seems unlikely. His lungs are clear. His body habitus makes fluid balance a bit hard to assess but no obvious increase in edema. He did a two step and did not require oxygen. He feels well and had good urine output, up a little more than a liter total for this admission. I think the weight is likely inaccurate. I did discuss with Dr. Gasca and he advised that the patient continue lasix bid and add his prn metolazone tomorrow if necessary. - Avoid all NSAIDs and nephrotoxic agents if possible; was receiving Toradol in post op period. (3) Pneumonia: complaints sob with diaphoresis on 08/19, otherwise has not been very symptomatic - no leukocytosis, fever, productive cough, aches or chills. EKG with NSR and RBBB Abnormal CXR - Chest CT wo contrast showing consolidative infiltrate left lower lobe Given IV levaquin x1 dose 08/19 and will continue po Levaquin q2d for renal dosing for a total of 7 days, MRSA swab nares was negative so will not cover for MRSA Patient is on RA, two step showed good exercise tolerance, no need for oxygen for home. Duonebs - patient reported feeling much better following nebs. Will send home with a Combivent inhaler. (4) CKD (chronic kidney disease), stage III: - Follows closely with Dr. Gasca, currently consulted. - Has been difficult to maintain volume status as outpatient -- Lasix 40 mg BID with Metolazone prn weight gain. - STEVEN as noted above. (5) Type II diabetes mellitus: - Most recent A1C was 7.6 in June 2018. - Pharmacy consulted for glycemic management. (6) Chronic diastolic heart failure: - Most recent TTE showed normal systolic function, grade I diastolic dysfunction. - Volume status is managed by nephrology. - Continue Lasix 40 mg PO BID; holding PO metolazone prn - see above - Monitor daily weights and I/Os closely - see above - Continue Coreg as prescribed. (7) Hypertension: - Continue Hydralazine, Imdur, Lasix as prescribed. (8) Gout: - Continue home Allopurinol 200 mg BID. (9) Pulmonary asbestosis: - Followed as outpatient. - patient reports he has not had PFTs since the . May want to consider PFTs as an outpatient once pneumonia has cleared (10) Obstructive sleep apnea: - Has not been able to tolerate CPAP as outpatient. (11) Pulmonary nodules: - 9 mm right suprahilar opacity on CXR 07/17 likely representing vascular summation. Not mentioned in 08/19 CT or CXR. - May want to consider imaging in 3 months after acute illness is over. (12) Omffw-6-ebsmchoshhe deficiency: - Followed as outpatient. - may want repeat PFTs as above (13) Anemia of chronic disease: - Baseline hgb ~12 likely due to anemia of chronic disease in setting of CKD. - Hemoglobin trending down post op, no indication for transfusion support. - Most recent anemia studies were in Jan 2018; repeat iron low - transfused Venofer daily per nephro (14) Electrolyte abnormality: -replaced (15) DVT prophylaxis: - Compression stockings, SCDs. Pharmacologic ppx per ortho, currently on aspirin 81 mg. Subjective Mr. Ceron is feeling much better this morning. His breathing has improved and he is well appearing and in a good mood, looking forward to discharge. I did spend time discussing his pneumonia regimen. He had good output over the night and feels like he is voiding completely. Yesterday he was having post void residuals of about 150. He was adamant about not going home with a Rees or being recatheterized. His kidney function continues to improve. Review of Systems Review of Systems: All systems reviewed & are unremarkable except as noted in HPI & below Physical Exam Physical Exam: General: no distress Eyes: normal inspection, PERLL Respiratory: chest non tender, clear to auscultation, normal breath sounds, no respiratory distress, no accessory muscle use Cardiac: regular rate and rhythm, no rub or gallop, no murmur, no edema, no jvd GI/: active bowel sounds, no abd pain or tenderness, soft, non distended Extremities: normal range of motion, normal strength, non tender Neuro/Psych: alert and oriented x 3, normal mood and affect Skin: normal color, dry Results & Data Vital Signs (Past 12 Hours) Vital Signs Temp Pulse Pulse Pulse Pulse Pulse Resp 08/20/18 09:38 90 86 82 08/20/18 07:16 78 16 08/20/18 06:12 36.9 C 79 18 08/19/18 22:47 37.1 C 81 16 Resp Resp Resp BP Pulse Ox Pulse Ox Pulse Ox 08/20/18 09:38 18 18 16 93 94 08/20/18 07:16 96 08/20/18 06:12 94 08/19/18 22:47 116/67 92 Pulse Ox 08/20/18 09:38 94 08/20/18 07:16 08/20/18 06:12 08/19/18 22:47
[2018-08-20] MEDS: POLYETHYLENE (MIRALAX) 17 GM PACK PO SCH (10:14)
--- NOTE | 2018-08-20 10:23 | Nephrology Progress Note ---
Date of Service August 20, 2018 Assessment & Plan (1) Acute renal failure: -- Continues to improve -- Renal US normal -- Volume status appropriate -- Creatinine peaked at 4.0 mg/dL on 08/17 -- Creatinine improved to baseline today -- Repeat metabolic profile next week -- Follow up in the nephrology clinic with me next month as scheduled (2) CKD (chronic kidney disease), stage III: -- Baseline creatinine 2.5 mg/dL (3) Primary osteoarthritis of left shoulder: -- POD # 4 s/p R shoulder arthroplasty (4) Chronic diastolic heart failure: -- Volume status acceptable -- Resume Furosemide 40 mg BID -- Magdiel was instructed to resume home diuretic regimen as previously prescribed (furosemide 40 mg twice daily + metolazone PRN) at discharge -- Daily weights (5) Type II diabetes mellitus: (6) Hypertension: (7) Anemia of chronic disease: -- Hgb stable -- Venofer 200 mg daily x 2 doses provided -- Encourage oral iron supplement at discharge Subjective No acute events overnight. Magdiel feels well. He has some pain but overall tolerable. Voiding without difficulty. Some sweats yesterday but denies fevers or chills. Appetite is good. Review of Systems Review of Systems: All systems reviewed & are unremarkable except as noted in HPI & below Physical Exam Constitutional: WD/WN, vitals as above + obese and comfortable Eyes: PERRL, conjunctivae normal, anicteric sclerae ENMT: Mouth: no dentition abnormality Mallampati Class: III Neck: trachea midline, no thyromegaly + short neck and + thick neck Respiratory: normal respiratory effort Auscultation: lungs clear to auscultation bilaterally Cardiovascular: RRR, no murmur, no edema Rate/Rhythm: regular rate Heart Sounds: no murmur Vessels: no carotid bruit Gastrointestinal (Abdomen): normal bowel sounds, soft, nontender, no hepatosplenomegaly Musculoskeletal: no cyanosis or clubbing, extremities motor strength 5/5 Skin: no rashes, warm and dry Neurologic: moves all extremities Psychiatric: A+Ox3, euthymic affect Orientation: alert and oriented x 3 Results & Data Vital Signs (Past 12 Hours) Vital Signs Temp Pulse Pulse Pulse Pulse Pulse Resp 08/20/18 09:38 90 86 82 08/20/18 07:16 78 16 08/20/18 06:12 36.9 C 79 18 08/19/18 22:47 37.1 C 81 16 Resp Resp Resp BP Pulse Ox Pulse Ox Pulse Ox 08/20/18 09:38 18 18 16 93 94 08/20/18 07:16 96 08/20/18 06:12 94 08/19/18 22:47 116/67 92 Pulse Ox 08/20/18 09:38 94 08/20/18 07:16 08/20/18 06:12 08/19/18 22:47 Laboratory Results Laboratory Results - last 24 hr 08/19/18 08/19/18 08/19/18 12:12 17:17 17:35 Sodium Potassium Chloride Carbon Dioxide Anion Gap BUN Creatinine Est Cr Clr Drug Dosing Est GFR ( Amer) Est GFR (Non-Af Amer) BUN/Creatinine Ratio Glucose POC Glucose 101 H 81 Calcium Nasal Screen MRSA (PCR) Negative 08/19/18 08/20/18 08/20/18 20:44 05:48 07:11 Sodium 135 L Potassium 3.7 Chloride 101 Carbon Dioxide 29 Anion Gap 5.0 BUN 48 H Creatinine 2.44 H D Est Cr Clr Drug Dosing 36.9 Est GFR ( Amer) 31.9 Est GFR (Non-Af Amer) 27.5 BUN/Creatinine Ratio 19.7 Glucose 78 POC Glucose 122 H 86 Calcium 8.5 Nasal Screen MRSA (PCR)
[2018-08-20] MEDS: IPRATROPIUM BROMIDE/ALBUTEROL respimat INH INH SCH ×2 (10:38→12:46)
[2018-08-20] MEDS: IRON SUCROSE 200 MG in 0.9 % SODIUM CHLORIDE 100 ML IV SCH (11:24)
--- NOTE | 2018-08-22 15:27 | Discharge Summary ---
Date of Service August 22, 2018 Admission HPI Per Admitting Provider Magdiel is a pleasant 63-year-old male who is been having a long history of left shoulder pain. There is been getting progressively worse over the years. X- rays and clinical examination have been diagnostic for primary osteoarthritis of the left shoulder. After failing conservative treatment, he has elected proceed with a left total shoulder arthroplasty. Specialty Data Orthopedic H & H 07/17/18 08/17/18 08/17/18 Range/Units 13:25 05:07 18:04 Hgb 15.8 12.9 L 11.9 L (14.0-18.0) g/dL Hct 45.0 37.0 L 34.8 L (42-52) % 08/18/18 08/19/18 Range/Units 05:23 05:09 Hgb 11.7 L 11.5 L (14.0-18.0) g/dL Hct 32.5 L 33.1 L (42-52) % Coagulation 07/17/18 Range/Units 13:25 INR 1.0 (0.9-1.1) Discharge Data Consultations 08/16/18 11:55 Consult Case Management - Discharge Planning Routine 08/17/18 14:02 Consult Hospitalist Routine 08/17/18 15:50 Consult Nephrology Routine Procedures Performed Operation Date: 08/16/18 08:30 Actual Procedures p Left Total Shoulder Arthroplasty(Left) - Malcolm Adkins DO Hospital Course (1) Primary osteoarthritis of left shoulder: On August 16, 2018 Magdiel arrived at [facility] and underwent a left total shoulder arthroplasty without complication. He had a general anesthetic and a left interscalene nerve block. Postoperatively he was placed in arm sling and discharged to general orthopedic floors. On postop day #1 his H&H was stable but his creatinine was significantly elevated. He does have a history of stage III chronic kidney disease. He was also having trouble urinating. He required to be catheterized during the night and had a Rees placed. I had the Rees removed but unfortunately was still unable to void. I was concerned that he was not making enough urine especially with his creatinine level being so high. The hospitalist was consulted as well as nephrology. The Rees was reinserted. On postop day #2 his creatinine level was improved.He was having very little pain in his shoulder and is able to ambulate well with physical therapy. Unfortunately he was still having difficulty voiding. On postop day #3 the Rees was discontinued and he was given Flomax. He was able to void easily then. He was happy with his progress and was seen by physical therapy. Unfortunately when he was ambulating he was feeling a little bit short of breath. A chest x-ray was ordered as well as a CT scan of the chest and it did show infiltrates in the left lower lobe. There was concerns for pneumonia and he was started on Levaquin. On postop day #4 he was feeling well. He was able to urinate without any difficulty. He was no longer short of breath. He was subsequently discharged home with Flomax and Levaquin. He was also given oxycodone and potassium. He will follow-up with orthopedics in 2 weeks.. Discharge Instructions Home Medications Medication Instructions Recorded Confirmed aspirin [Aspir-81] 81 mg PO QAM 12/11/17 08/16/18 carvedilol 25 mg PO BID 12/11/17 08/16/18 hydralazine 25 mg PO BID 12/11/17 08/16/18 isosorbide mononitrate 60 mg PO QAM 12/11/17 08/16/18 Novolin 70/30 U-100 Insulin 40 unit SUBCUT QAM 06/20/18 08/16/18 Novolin 70/30 U-100 Insulin 60 unit SUBCUT QPM 06/20/18 08/16/18 allopurinol 200 mg PO BID 06/20/18 08/16/18 diclofenac sodium 1 applic TOPICAL BID PRN 06/20/18 08/16/18 furosemide 40 mg PO BID 07/10/18 08/16/18 Previous Rx's Medication Instructions Recorded potassium chloride [Klor-Con M20] 20 meq PO QAM #28 tab 06/23/18 oxycodone 5 - 10 mg PO Q4H PRN #40 tab 08/17/18 ipratropium-albuterol [Combivent 1 puff INHALATION QID #1 inhaler 08/20/18 Respimat] levofloxacin 750 mg PO Q2D 6 Days #3 tab 08/20/18 tamsulosin 0.4 mg PO QAM #30 cap 08/20/18
== END 2018-08-20 13:28 | disposition home or self-care (01) | DRG 483 ==
LOC: ASU 06:16 → 3E 10:48 → 3N 08-19 14:30

== ENCOUNTER 2019-05-24 22:41 | Observation (INO) ==
[2019-05-24 23:31] LABS: Basophils # (auto) 0.01 K/uL (0-0.2); Basophils % (auto) 0.1 %; Eosinophils # (auto) 0.19 K/uL (0-0.5); Eosinophils % (auto) 2.4 %; Hematocrit (blood only) 43.8 % (42-52); Hemoglobin 15.1 g/dL (14.0-18.0); Immature Granulocytes # (auto) 0.02 K/uL (0.00-0.02); Immature Granulocytes % (auto) 0.3 %; Lymphocytes # (auto) 1.54 K/uL (1.2-3.4); Lymphocytes % (auto) 19.5 %; Mean Corpuscular Hemoglobin 29.3 pg (25-34); Mean Corpuscular Hgb Conc 34.5 g/dL (32-36); Mean Corpuscular Volume 84.9 fL (80-100); Mean Platelet Volume 9.9 fL (7.4-10.4); Monocytes % (auto) 7.6 %; Neutrophils # (auto) 5.52 K/uL (1.4-6.5); Neutrophils % (auto) 70.1 %; Platelet Count 160 K/uL (130-400); RDW Coefficient of Variation 14.4 % (11.5-14.5); RDW Standard Deviation 43.8 fL (36.4-46.3); Red Blood Count 5.16 M/uL (4.7-6.1); White Blood Count 7.88 K/uL (4.8-10.8)
[2019-05-24 23:53] LABS: Alanine Aminotransferase 17 U/L (12-78); Albumin Level 3.7 gm/dl (3.4-5.0); Aspartate Aminotransferase 18 U/L (15-37); BUN Creatinine Ratio 20.5 (10-20); Bilirubin Direct 0.1 mg/dl (0-0.2); Blood Urea Nitrogen 55 mg/dl (7-18); Calcium 9.5 mg/dl (8.5-10.1); Carbon Dioxide 30 mmol/L (21-32); Chloride 97 mmol/L (98-107); Est GFR (Non-African American) 24.2; Glucose 129 mg/dl (70-99); Lipase 123 U/L (73-393); Magnesium 1.9 mg/dl (1.8-2.4); Potassium 3.5 mmol/L (3.5-5.1); Sodium 136 mmol/L (136-145)
[2019-05-24 23:58] LABS: Alkaline Phosphatase 95 U/L (45-117); NT Pro B Type Natriuretic Pept 57 pg/ml (0-900); Total Protein 7.9 gm/dl (6.4-8.2); Troponin I < 0.015 ng/ml (0-0.045)
[2019-05-25] MEDS ORDERED: TAMSULOSIN HCL 0.4 MG CAP PO ONE (01:51)
--- NOTE | 2019-05-25 01:52 | History & Physical Report ---
Date of Service May 25, 2019 Assessment & Plan (1) SOB (shortness of breath): Shortness of breath is likely multifactorial: Chronic diastolic CHF, weight gain, aerophagia limiting diaphragm excursion, deconditioning due to sedentary lifestyle, pulmonary hypertension associated with untreated obstructive sleep apnea and pulmonary asbestosis. Present on Admission?: Yes (2) Acute kidney injury superimposed on chronic kidney disease: Creatinine upon admission was 2.70, with range 1.77-2.44. This is likely secondary to addition of valsartan 40 mg daily on 05/09/2019, increased usage of Lasix and metolazone since that time, decreased oral intake of liquids, and postobstructive kidney injury due to untreated BPH with LUTS and urinary retention. Of note, creatinine on 03/16/2019 was 1.77, and on 04/03/2019 was 2.19. Present on Admission?: Yes (3) Hypertension: Hypertension/chronic diastolic CHF/CAD- The patient will be admitted to telemetry for serial cardiac enzymes, serial EKG's, cardiac rhythm monitoring and a 2-D echocardiogram with Dopplers. Continue aspirin 81 mg daily, carvedilol 25 mg p.o. twice daily. Patient appears to be more prerenal at this time. For now, hold furosemide 80 mg p.o. twice daily, hydralazine 25 mg p.o. twice daily, PRN metolazone 5 mg daily, and valsartan 40 mg daily. Increase isosorbide mononitrate to 60 mg p.o. twice daily starting on 05/24. Last echo was on 06/21/2018 which showed normal ejection fraction of 55 to 60%, with grade 1 diastolic dysfunction, and normal right ventricular systolic pressure. Repeat echo will be to assess for any changes in ejection fraction but also to assess for pulmonary hypertension. Present on Admission?: Yes (4) Chronic diastolic heart failure: See above Present on Admission?: Yes (5) BPH loc w urin obs/LUTS: BPH with obstruction causing urinary retention with incomplete bladder emptying. Patient was scanned in emergency department to have over 300 cc retention, with having no sense of need to urinate. He had been on tamsulosin in the past but stopped it on his own because he felt he did not need it. Resume tamsulosin 0.4 mg p.o. at bedtime, with first dose tonight. Question contribution of urinary retention to kidney dysfunction. Present on Admission?: Yes (6) Urinary retention with incomplete bladder emptying: See above Present on Admission?: Yes (7) Obstructive sleep apnea: Patient has untreated obstructive sleep apnea/pulmonary asbestosis- Question the degree that these are contributing to his dyspnea on exertion, and may deserve a trial of inhalers once cardiac status is determined. Present on Admission?: Yes (8) Pulmonary asbestosis: See above Present on Admission?: Yes (9) Uncontrolled type 2 diabetes mellitus with kidney complication, with long- term current use of insulin: Glucose upon admission 129. Hold NovoLog Mix 70/30. Place on Accu-Cheks before meals and at bedtime with NovoLog coverage per scale Present on Admission?: Yes History of Present Illness Chief Complaint: The patient presents to the emergency department with complaint of shortness of breath that began 5 days ago, and has gained approximately 12 to 13 pounds during that time, in spite of using additional Lasix and metolazone. Primary Care Provider: Narciso Loo MD The patient is a 64-year-old male with a past medical history including morbid obesity with BMI 40.0-49.9, bilateral sensorineural hearing loss, splenomegaly, diabetes mellitus type 2 with kidney complication and long-term current use of insulin, vitamin D deficiency, CKD, pneumonia, hypertension, anemia chronic disease, alpha-1 antitrypsin deficiency, pulmonary nodules, obstructive sleep apnea, pulmonary asbestosis, gout, chronic diastolic CHF, hypertension and fatty liver. He presents to the emergency department with complaint of a 12 to 13 pound weight gain over the past week, with progressively worsening shortness of breath in spite of using additional Lasix and and metolazone as directed by his weight count operator Dr. Gasca. Allergies Allergy/AdvReac Type Severity Reaction Status Date / Time [id number] Reductase AdvReac Intermediate Muscle pain Verified 05/24/19 23:15 Inhibitor Home Medications Home Medications Medication Instructions Recorded Confirmed Type aspirin [Aspir-81] 81 mg PO QAM 12/11/17 05/24/19 History allopurinol 200 mg PO BID 06/20/18 05/24/19 History ferrous sulfate 325 mg PO DAILY 11/12/18 05/24/19 History insulin syringe-needle U-100 0.5 #10 ea 11/29/18 03/27/19 History mL 31 gauge x 5/16" lancets 33 gauge #100 ea 11/29/18 03/27/19 History pen needle, diabetic 31 gauge x #30 ea 11/29/18 03/27/19 History 1/4" furosemide 40 mg tablet 80 mg PO BID #360 tab 01/15/19 05/24/19 Rx hydralazine 25 mg tablet 25 mg PO BID #90 tab 01/29/19 05/24/19 Rx isosorbide mononitrate 60 mg 60 mg PO QAM #90 tab 03/12/19 05/24/19 Rx tablet,extended release 24 hr OneTouch Verio #150 ea NS 03/14/19 03/27/19 Rx Novolog Mix 70-30 FlexPen U-100 See Rx Instructions SQ DAILY #3 04/17/19 05/24/19 Rx Insulin 100 unit/mL subcutaneous box NS pen calcitriol 0.25 mcg capsule 0.25 mcg PO MONWEDFRI #30 cap 04/22/19 05/24/19 Rx carvedilol 25 mg tablet 25 mg PO BID #60 tab 04/22/19 05/24/19 Rx valsartan 40 mg tablet 40 mg PO DAILY #90 tab 05/09/19 05/24/19 Rx potassium chloride 20 mEq 20 meq PO BID #60 tab 05/14/19 05/24/19 Rx tablet,extended release Adjustable Bed #1 ea 05/22/19 Rx metolazone 5 mg PO DIRECTED PRN 05/24/19 05/24/19 History Past Med/Surg History Social History Preferred Language: Hebrew Communication Ability: Effective [employer] Required: No Beliefs That Will Affect Care: None marital status: Current Living Situation: Spouse Other Information That Helps Us Care for You: No Feels Safe at Home: Yes Safety Concerns: Feels Safe At This Time Smoking Status: Former smoker Tobacco Type: cigars ; Cigarettes Per Day: Rare cigar smoker, ~1x month ; Do You Dip or Chew Tobacco: No ; Second Hand Exposure: No ; Tobacco Cessation Education Requested by Patient: No Hx Alcohol Use: No Hx Substance Use: No Review of Systems Review of Systems: The patient denies chest pain, palpitations, cough, sore throat, fevers, chills, sweats, nausea, vomiting, diarrhea , constipation, abdominal pain, pelvic pain, blood in urine or stool, dysuria, urinary frequency or urgency, lightheadedness, dizziness, headache, memory loss, loss of consciousness, rash, abnormal bruising or bleeding, imbalance, focal weakness, numbness or tingling in arms or legs, back or neck pain, or night sweats. The review of systems is otherwise negative other than for that already noted above, and at least 10 systems have been reviewed. Physical Exam Physical Exam: The patient is awake, alert and oriented 3, well developed and well nourished, normocephalic and atraumatic, lying in bed and in no acute distress. HEENT--PERRL, EOMI, mucous membranes and oropharynx dry. Neck--supple. No JVD. No bruits. Thyroid normal, trachea midline, no adenopathy. Heart--normal S1 and S2. No murmurs, rubs or gallops. Lungs--clear bilaterally, no respiratory distress, no accessory muscle use. Abdomen--normal bowel sounds and soft. Nontender. Distended and tympanitic. Extremities--there is 1+ bilateral pretibial pitting edema. Dermatologic--normal skin turgor, normal color, no abnormal lymph nodes, no rash. Neurologic--cranial nerves II through XII grossly intact. Rheumatologic--normal range of motion. Psychiatric--normal affect. Results & Data Vital Signs (Past 12 Hours) Vital Signs Temp Pulse Resp BP Pulse Ox 05/25/19 01:30 78 18 126/59 L 91 05/25/19 01:00 70 14 154/75 H 96 05/25/19 00:30 73 19 114/63 93 05/25/19 00:00 78 23 114/58 L 92 05/24/19 23:30 77 15 101/58 L 92 05/24/19 23:16 94 05/24/19 23:01 78 23 159/71 H 95 05/24/19 22:45 97.9 F 82 24 151/83 H 97 Laboratory Results Laboratory Results WBC 8.62 K/uL (4.8-10.8) 05/25/19 03:10 RBC 5.44 M/uL (4.7-6.1) 05/25/19 03:10 Hgb 16.0 g/dL (14.0-18.0) 05/25/19 03:10 Hct 46.1 % (42-52) 05/25/19 03:10 MCV 84.7 fL (80-100) 05/25/19 03:10 MCH 29.4 pg (25-34) 05/25/19 03:10 MCHC 34.7 g/dL (32-36) 05/25/19 03:10 RDW Std Deviation 44.1 fL (36.4-46.3) 05/25/19 03:10 RDW Coeff of [place] 14.5 % (11.5-14.5) 05/25/19 03:10 Plt Count 171 K/uL (130-400) 05/25/19 03:10 MPV 9.9 fL (7.4-10.4) 05/25/19 03:10 Immature Gran % (Auto) 0.5 % 05/25/19 03:10 Neut % (Auto) 68.4 % 05/25/19 03:10 Lymph % (Auto) 18.8 % 05/25/19 03:10 [place] % (Auto) 9.6 % 05/25/19 03:10 Eos % (Auto) 2.6 % 05/25/19 03:10 Baso % (Auto) 0.1 % 05/25/19 03:10 Immature Gran # (Auto) 0.04 K/uL (0.00-0.02) H 05/25/19 03:10 Neut # (Auto) 5.90 K/uL (1.4-6.5) 05/25/19 03:10 Lymph # (Auto) 1.62 K/uL (1.2-3.4) 05/25/19 03:10 [place] # (Auto) 0.83 K/uL (0.11-0.59) H 05/25/19 03:10 Eos # (Auto) 0.22 K/uL (0-0.5) 05/25/19 03:10 Baso # (Auto) 0.01 K/uL (0-0.2) 05/25/19 03:10 Sodium 136 mmol/L (136-145) 05/25/19 03:10 Potassium 3.5 mmol/L (3.5-5.1) 05/25/19 03:10 Chloride 98 mmol/L (98-107) 05/25/19 03:10 Carbon Dioxide 34 mmol/L (21-32) H 05/25/19 03:10 Anion Gap 4.0 (3-11) 05/25/19 03:10 BUN 55 mg/dl (7-18) H 05/25/19 03:10 Creatinine 2.66 mg/dl (0.6-1.4) H 05/25/19 03:10 Est Cr Clr Drug Dosing 32.9 ml/min 05/25/19 03:10 Est GFR ( Amer) 28.5 05/25/19 03:10 Est GFR (Non-Af Amer) 24.6 05/25/19 03:10 BUN/Creatinine Ratio 20.8 (10-20) H 05/25/19 03:10 Glucose 118 mg/dl (70-99) H 05/25/19 03:10 Calcium 9.7 mg/dl (8.5-10.1) 05/25/19 03:10 Phosphorus 3.9 mg/dl (2.5-4.9) 05/25/19 03:10 Magnesium 1.9 mg/dl (1.8-2.4) 05/24/19 23:20 Total Bilirubin 1.0 mg/dl (0.2-1) 05/24/19 23:20 Direct Bilirubin 0.1 mg/dl (0-0.2) 05/24/19 23:20 AST 18 U/L (15-37) 05/24/19 23:20 ALT 17 U/L (12-78) 05/24/19 23:20 Alkaline Phosphatase 95 U/L (45-117) 05/24/19 23:20 Troponin I < 0.015 ng/ml (0-0.045) 05/25/19 03:10 NT-Pro-B Natriuret Pep 57 pg/ml (0-900) 05/24/19 23:20 Total Protein 7.9 gm/dl (6.4-8.2) 05/24/19 23:20 Albumin 4.0 gm/dl (3.4-5.0) 05/25/19 03:10 Lipase 123 U/L (73-393) 05/24/19 23:20 Code Status & VTE Plan Code Status Full code VTE Prophylaxis Plan VTE Prophylaxis will be ordered: Yes PG Care Time/CCT Total # of Minutes Spent Total Time Spent with Patient: Total time spent is greater than 50% in coordination of care (as documented) at patient's floor/unit and/or counseling patient: Coding Level of Care Code 28355 Initial Inpt Care Lvl 3 Diagnoses SOB (shortness of breath) R06.02 Acute kidney injury superimposed on chronic kidney disease N17.9; N18.9 Hypertension I10 Chronic diastolic heart failure I50.32 BPH loc w urin obs/LUTS N40.1 Urinary retention with incomplete bladder emptying R33.9 Obstructive sleep apnea G47.33 Pulmonary asbestosis J61 Uncontrolled type 2 diabetes mellitus with kidney complication, with long-term current use of insulin E11.29; E11.65; Z79.4
--- NOTE | 2019-05-25 01:59 | Emergency Department Note ---
Entered by Fatuma Fernandez acting as a scribe for ED Provider Note Name: PRAMOD DELCID Age: 64 Arrives Via: Walk-In Informant: Patient CC: Shortness of breath HPI: The patient is a 64 year old male who arrives for evaluation of an episode of shortness of breath that started 5 days ago. The patient states that he has congestive heart failure and has gained approximately 12 pounds since last week. The patient states that he has been taking Lasix and Metolazone, but they do not seem to be helping. The patient notes that his shortness of breath is exacerbated by lying flat and moving around. The patient states that his abdomen feels more bloated than usual, but his legs do not hurt or feel more swollen. The patient notes that he has some back pain as well. The patient denies vomiting, chest pain, diarrhea and syncope. ROS: See above HPI for pertinent positives & negatives. A total of 10 systems reviewed and were otherwise negative. Past Medical History: CHF, acute renal failure, chronic kidney disease, diabetes, fatty liver, hypertension. Past Surgical History:Fusion of spine, cardiac cath, colonoscopy, Achilles tendon repair, elbow surgery, wrist surgery. Family History:Diabetes Social History:Former smoker Home Medications:See Below Allergies:See Below Vitals:BP: 151/83, P: 82, RR: 24, T: 36.6 C, O2 Sat: 97 on room air. Physical Exam: GENERAL: Patient is well appearing and in minimal distress. EYES: No scleral icterus, unremarkable pupils. ENT: Mucous membranes moist, no nasal congestion. NECK: No masses appreciated, nomeningismus, trachea is midline. RESPIRATORY: Mild dyspnea. Crackles in bilateral bases. No wheeze, no rhonchi. CARDIOVASCULAR: Regular rate and rhythm.No murmurs, rubs, gallops appreciated. GASTROINTESTINAL: Abdomen soft, non-tender, no peritonitis.Bowel sounds positive.No masses appreciated. BACK: No midline tenderness, no CVA tenderness EXTREMITIES: Normal motion all extremities, no cyanosis. Edema bilaterally. NEUROLOGIC: Alert and oriented, no acute motor or sensory deficits, no focal weakness, cranial nerves grossly intact. SKIN: No rash, no jaundice, no diaphoresis. ED Course: Prior Medical Record, Triage/Nursing Notes, Medications, Allergies reviewed by Me Vital Signs: reviewed and remarkable for wnl Labs:Reviewed and remarkable for increasing Cr Imaging:X ray results are stated below per my interpretation: Chest: 1 view: No infiltrate, no effusion, normal cardiac border. EKG:Per My Interpretation: Indication Shortness of breath: NSR 76 bpm, qtc 450. Intra ventricular delay. No Ectopy. No Ischemia. Compared to EKG 11/01/19, no significant changes. Reassessments/Times: 2258: Past medical records reviewed. The patient was evaluated in room C10. A complete history and physical exam was performed. 0007: I discussed the patient's case with Dr. Polanco [facility], Hospitalist. He states that he will come and evaluated the patient in the ED. 0015: I reevaluated the patient and he is stable. He is awaiting hospitalist evaluation. 0035: I had a long discussion with Dr. Polanco [facility], Hospitalist. He states that he would like the patient to be admitted. Blood pressure:Normal.No Referral necessary Disposition:Hospitalization Differentials:Etiologies such as infections, reactive airway disease, COPD, pneumonia, pleural effusion, pulmonary edema, ARDS, pneumothorax, CHF, cardiac ischemia, cardiac tamponade, dysrhythmia, anemia, pulmonary embolism, musculoskeletal, gastrointestinal process, amongst other pathologies. Medical Decision Makin yr old male arrives with shortness of breath, severe GUTIERREZ and weight gain. Exam benign other than he looks more on dehydrated side than overloaded. CXR without significant findings other than mild CHF similar to previous CXR. Labs with worsening renal function with quite increased from just a month ago. He is retaining some urine post stopping flomax. I do not think this is truly congestive heart failure, though reason for worsening GUTIERREZ/weight gain not completely clear. Hospitalist in to evaluated further and will bring patient in for management. I do not feel this is PE based on exam and story and I do not feel that giving dye load for CT PE would be appropriate at this time. Patient without EKG changes and Trop OK thus ACS unlikely. Lungs clear and COPD unlikely as well. Impression: Acute on chronic renal failure dehydration Shortness of Breath The scribe's documentation has been prepared under my direction and personally reviewed by me in its entirety. I confirm that the note above accurately reflects all work, treatment, procedures, and medical decision making performed by me. Truman Varela MD Impression & Plan Acute on chronic renal failure, Dehydration, SOB (shortness of breath) Past Med/Surg History Social History Preferred Language: Lao Communication Ability: Effective Inserting Operator Required: No Beliefs That Will Affect Care: None marital status: Current Living Situation: Spouse Feels Safe at Home: Yes Smoking Status: Former smoker Tobacco Type: cigars ; Cigarettes Per Day: Rare cigar smoker, ~1x month ; Second Hand Exposure: No ; Hx Alcohol Use: No Hx Substance Use: No Results & Data Vital Signs Vital Signs - 24 hr 05/24/19 22:45 05/24/19 23:01 05/24/19 23:03 Temperature 36.6 C Temperature Source Oral Pulse Rate 82 78 Pulse Rate from SpO2 Sensor 78 Respiratory Rate 24 23 Respiratory Effort / Characteristics Non-Labored Spontaneous Non-Labored Spontaneous Respiratory Depth Normal Normal Respiratory Pattern Regular Blood Pressure 151/83 H 159/71 H Blood Pressure Mean 105 93 Blood Pressure Position Sitting Pulse Oximetry 97 95 Oxygen Delivery Method Room Air Room Air Sepsis Recent Fever Within 48 Hours No Sepsis Action Taken by Nursing No Action Required 05/24/19 23:16 05/24/19 23:30 05/25/19 00:00 Temperature Temperature Source Pulse Rate 77 78 Pulse Rate from SpO2 Sensor 78 78 Respiratory Rate 15 23 Respiratory Effort / Characteristics Respiratory Depth Respiratory Pattern Blood Pressure 101/58 L 114/58 L Blood Pressure Mean 73 70 Blood Pressure Position Pulse Oximetry 94 92 92 Oxygen Delivery Method Room Air Sepsis Recent Fever Within 48 Hours Sepsis Action Taken by Nursing 05/25/19 00:30 05/25/19 01:00 05/25/19 01:30 Temperature Temperature Source Pulse Rate 73 70 78 Pulse Rate from SpO2 Sensor 73 73 77 Respiratory Rate 19 14 18 Respiratory Effort / Characteristics Respiratory Depth Respiratory Pattern Blood Pressure 114/63 154/75 H 126/59 L Blood Pressure Mean 85 94 72 Blood Pressure Position Pulse Oximetry 93 96 91 Oxygen Delivery Method Sepsis Recent Fever Within 48 Hours Sepsis Action Taken by Nursing Laboratory Data Result diagrams: 05/24/19 23:20 05/24/19 23:20 Lab Results 05/24/19 05/24/19 Range/Units 23:20 23:20 WBC 7.88 (4.8-10.8) K/uL RBC 5.16 (4.7-6.1) M/uL Hgb 15.1 (14.0-18.0) g/dL Hct 43.8 (42-52) % MCV 84.9 (80-100) fL MCH 29.3 (25-34) pg MCHC 34.5 (32-36) g/dL RDW Std Deviation 43.8 (36.4-46.3) fL RDW Coeff of Junito 14.4 (11.5-14.5) % Plt Count 160 (130-400) K/uL MPV 9.9 (7.4-10.4) fL Immature Gran % (Auto) 0.3 % Neut % (Auto) 70.1 % Lymph % (Auto) 19.5 % Dorado % (Auto) 7.6 % Eos % (Auto) 2.4 % Baso % (Auto) 0.1 % Immature Gran # (Auto) 0.02 (0.00-0.02) K/uL Neut # (Auto) 5.52 (1.4-6.5) K/uL Lymph # (Auto) 1.54 (1.2-3.4) K/uL [place] # (Auto) 0.60 H (0.11-0.59) K/uL Eos # (Auto) 0.19 (0-0.5) K/uL Baso # (Auto) 0.01 (0-0.2) K/uL Sodium 136 (136-145) mmol/L Potassium 3.5 (3.5-5.1) mmol/L Chloride 97 L (98-107) mmol/L Carbon Dioxide 30 (21-32) mmol/L Anion Gap 9.0 (3-11) BUN 55 H (7-18) mg/dl Creatinine 2.70 H (0.6-1.4) mg/dl Est Cr Clr Drug Dosing Not Reportable Est GFR ( Amer) 28.0 Est GFR (Non-Af Amer) 24.2 BUN/Creatinine Ratio 20.5 H (10-20) Glucose 129 H (70-99) mg/dl Calcium 9.5 (8.5-10.1) mg/dl Magnesium 1.9 (1.8-2.4) mg/dl Total Bilirubin 1.0 (0.2-1) mg/dl Direct Bilirubin 0.1 (0-0.2) mg/dl AST 18 (15-37) U/L ALT 17 (12-78) U/L Alkaline Phosphatase 95 (45-117) U/L Troponin I < 0.015 (0-0.045) ng/ml NT-Pro-B Natriuret Pep 57 (0-900) pg/ml Total Protein 7.9 (6.4-8.2) gm/dl Albumin 3.7 (3.4-5.0) gm/dl Lipase 123 (73-393) U/L Discharge Plan Visit Data Chief Complaint: Shortness of Breath/Dyspnea Stated Complaint: CHF, FLUID BUILDUP, SOB, ABD SORENESS ED Provider: Truman Varela Discharge Problem: Acute on chronic renal failure, Dehydration, SOB (shortness of breath) Patient Disposition: Being Evaluated by Hospitalist Forms Stand Alone Forms: My [facility] Prescriptions Prescriptions: No Action furosemide 40 mg tablet 80 mg PO BID Qty: 360 RF: 1 hydralazine 25 mg tablet 25 mg PO BID Qty: 90 RF: 3 Hold Instructions: low BP isosorbide mononitrate 60 mg tablet extended release 24 hr 60 mg PO QAM Qty: 90 RF: 1 (DME) OneTouch Verio strip See Dose Instructions .ROUTE .MEDSUPPLY Qty: 150 RF: 5 insulin asp prt-insulin aspart [Novolog Mix 70-30FlexPen U-100] 100 unit/mL (70-30) insulin pen See Rx Instructions SQ DAILY Qty: 3 RF: 5 carvedilol 25 mg tablet 25 mg PO BID Qty: 60 RF: 5 calcitriol 0.25 mcg capsule 0.25 mcg PO MONWEDFRI Qty: 30 RF: 3 potassium chloride 20 mEq tablet extended release 20 meq PO BID Qty: 60 RF: 2 (DME) Adjustable Bed Qty: 1 RF: 0 (DME) insulin syringe-needle U-100 [BD Insulin Syringe Ultra-Fine] 0.5 mL 31 gauge x 5/16" syringe See Dose Instructions .ROUTE .MEDSUPPLY Qty: 10 RF: 0 (DME) lancets [OneTouch Delica Lancets] 33 gauge misc See Dose Instructions .ROUTE .MEDSUPPLY Qty: 100 RF: 0 (DME) pen needle, diabetic [Comfort EZ Pen Surrency] 31 gauge x 1/4" needle See Dose Instructions .ROUTE .MEDSUPPLY Qty: 30 RF: 0 valsartan 40 mg tablet 40 mg PO DAILY Qty: 90 RF: 2 aspirin [Aspir-81] 81 mg Tablet,Delayed Release (Dr/Ec) 81 mg PO QAM RF: 0 ferrous sulfate 325 mg (65 mg iron) tablet 325 mg PO DAILY RF: 0 metolazone 5 mg tablet 5 mg PO DIRECTED PRN (Reason: weight gain) RF: 0 allopurinol 100 mg tablet 200 mg PO BID RF: 0 Referrals Referrals: Giovany Loo MD [Primary Care Provider] - Discharge Problem: Acute on chronic renal failure Qualifiers: Acute renal failure type: unspecified Chronic kidney disease stage: unspecified stage Qualified Code(s): N17.9 - Acute kidney failure, unspecified The scribe's documentation has been prepared under my direction and personally reviewed by me in its entirety. I confirm that the note above accurately reflects all work, treatment, procedures, and medical decision making performed by me.
[2019-05-25] MEDS ORDERED: TAMSULOSIN HCL 0.4 MG CAP ONE (02:25)
[2019-05-25] MEDS ORDERED: ALUMINUM/MAGNESIUM SUSP 30 ML UDC PO PRN (02:56)
[2019-05-25] MEDS ORDERED: ONDANSETRON INJ 2 MG/ML 2 ML VIAL IV PRN (02:56)
[2019-05-25] MEDS ORDERED: MAGNESIUM HYDROXIDE SUSP 30 ML UDC PO PRN (02:56)
[2019-05-25] MEDS ORDERED: ACETAMINOPHEN 325 MG TAB PO PRN (02:56)
[2019-05-25 03:27] LABS: Basophils # (auto) 0.01 K/uL (0-0.2); Basophils % (auto) 0.1 %; Eosinophils # (auto) 0.22 K/uL (0-0.5); Eosinophils % (auto) 2.6 %; Hematocrit (blood only) 46.1 % (42-52); Immature Granulocytes # (auto) 0.04 K/uL (0.00-0.02); Immature Granulocytes % (auto) 0.5 %; Lymphocytes # (auto) 1.62 K/uL (1.2-3.4); Lymphocytes % (auto) 18.8 %; Mean Corpuscular Hemoglobin 29.4 pg (25-34); Mean Corpuscular Hgb Conc 34.7 g/dL (32-36); Mean Corpuscular Volume 84.7 fL (80-100); Mean Platelet Volume 9.9 fL (7.4-10.4); Monocytes # (auto) 0.83 K/uL (0.11-0.59); Monocytes % (auto) 9.6 %; Neutrophils % (auto) 68.4 %; Platelet Count 171 K/uL (130-400); RDW Coefficient of Variation 14.5 % (11.5-14.5); RDW Standard Deviation 44.1 fL (36.4-46.3); Red Blood Count 5.44 M/uL (4.7-6.1); White Blood Count 8.62 K/uL (4.8-10.8)
[2019-05-25 03:47] LABS: BUN Creatinine Ratio 20.8 (10-20); Blood Urea Nitrogen 55 mg/dl (7-18); Calcium 9.7 mg/dl (8.5-10.1); Carbon Dioxide 34 mmol/L (21-32); Chloride 98 mmol/L (98-107); Creatinine Clr Calc Pharmacy 32.9 ml/min; Est GFR (African American) 28.5; Est GFR (Non-African American) 24.6; Glucose 118 mg/dl (70-99); Potassium 3.5 mmol/L (3.5-5.1); Sodium 136 mmol/L (136-145)
[2019-05-25 03:51] LABS: Phosphorus 3.9 mg/dl (2.5-4.9); Troponin I < 0.015 ng/ml (0-0.045)
--- NOTE | 2019-05-25 07:12 | XRay Report ---
XR chest 1V portable HISTORY: 64 years-old Male Shortness of breath acute shortness of breath COMPARISON: Chest radiograph 11/12/2018 TECHNIQUE: Portable AP view of the chest FINDINGS: Cardiac silhouette is enlarged, unchanged. No overt pulmonary edema. Mild interstitial coarsening of the lung bases with probable atelectasis. No pneumothorax, pleural effusion or airspace consolidation typical for pneumonia. Degenerative changes of the spine and right shoulder. Fusion hardware of the lower cervical spine. Left shoulder total joint arthroplasty. IMPRESSION: Cardiomegaly without acute process. ACT 112: Negative or not required by law. The above report was generated using voice recognition software. It may contain grammatical, syntax o r spelling errors. Electronically signed by: Bonilla Orourke M.D. 05/25/2019 7:10 AM
[2019-05-25] MEDS: FUROSEMIDE 80 MG TAB PO SCH ×2 (08:50→16:55)
[2019-05-25] MEDS ORDERED: ISOSORBIDE MONO EXTENDED REL 60 MG TABCR PO SCH (09:00)
[2019-05-25] MEDS ORDERED: carvediloL 25 MG TAB PO SCH (09:00)
[2019-05-25] MEDS ORDERED: FERROUS SULFATE 325 MG TAB PO SCH (09:00)
[2019-05-25] MEDS ORDERED: allopurinoL 100 MG TAB PO SCH (09:00)
[2019-05-25] MEDS ORDERED: POTASSIUM CHLORIDE 20 MEQ TABCR PO SCH (09:00)
[2019-05-25] MEDS ORDERED: ASPIRIN 81 MG ECTAB PO SCH (09:00)
[2019-05-25] MEDS: SIMETHICONE 80 MG CHEW PO SCH ×3 (09:02→16:55)
[2019-05-25] MEDS ORDERED: INSULIN GLARGINE SOLOSTAR 100 UNITS/ML 3 ML PEN SC SCH (09:30)
[2019-05-25] MEDS: INSULIN ASPART 100 UNITS/ML 3 ML PEN SC SCH ×2 (12:21→17:11)
--- NOTE | 2019-05-25 12:52 | Electrocardiogram Report ---
Test Reason : Blood Pressure : / mmHG Vent. Rate : 076 BPM Atrial Rate : 076 BPM P-R Int : 178 ms QRS Dur : 118 ms QT Int : 400 ms P-R-T Axes : 049 084 049 degrees QTc Int : 450 ms Normal sinus rhythm Non-specific intra-ventricular conduction delay Borderline ECG When compared with ECG of 12-NOV-2018 16:20, No significant change was found Confirmed by Rashad Mercado ([id number]) on 05/25/2019 12:51:38 PM Referred By: REFERRED SELF Confirmed By:Rashad Mercado
--- NOTE | 2019-05-25 15:49 | XRay Report ---
ABDOMEN 2 VIEWS HISTORY: abd distension; constipation? ileus? COMPARISON: Abdomen and pelvis CT 08/18/2017. FINDINGS: There is no pneumoperitoneum or pneumatosis. The bowel gas pattern is unremarkable. No evid ence for bowel obstruction. No renal or ureteral calculi. The spleen remains mildly enlarged. Calcifi cations in the deep pelvis consistent with phleboliths. Small amount of well-formed stool within the colon. IMPRESSION: No evidence for bowel obstruction. Persistent splenomegaly. ACT 112: Negative or not required by law. Electronically signed by: Alonso Naqvi M.D. 05/25/2019 3:47 PM
--- NOTE | 2019-05-25 18:26 | Discharge Summary ---
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 He presents to the emergency department with complaint of a 12 to 13 pound weight gain over the past week, with progressively worsening shortness of breath in spite of using additional Lasix and and metolazone as directed by his an/syq 13 nav/[address] Dr[address] Gasca. Principal Diagnosis 1. acute kidney injury 2. abdominal distension - resolved Discharge Exam Constitutional well developed, well nourished and + morbidly obese; no acute distress ENMT external ear and nose normal, oropharynx normal Respiratory normal respiratory effort, lungs clear to auscultation Cardiovascular Rate/Rhythm: regular rate and regular rhythm Heart Sounds: normal S1 and normal S2; no murmur Vessels: posterior tibial pulses present and dorsalis pedis pulses present; no JVD Extremities: no edema Gastrointestinal (Abdomen) normal bowel sounds, soft, nontender, no hepatosplenomegaly Psychiatric A+Ox3, euthymic affect Discharge Data Allergies Allergy/AdvReac Type Severity Reaction Status Date / Time Yhbppif-Dpq-Fsk Reductase AdvReac Intermediate Muscle pain Verified 05/28/19 11:29 Inhibitor Procedures Performed 1. echocardiogram - EF 60-65%; grade 1 diastolic dysfunction; normal sized IVC; no significant valvular disease. 2. abdominal x-rays - normal bowel gas pattern; no ileus or obstruction. Hospital Course (1) SOB (shortness of breath): Recent shortness of breath was likely due to acute/chronic diastolic CHF. By the time of admission his volume status was normal (or slightly hypovolemic). O2 sats with walking on day of discharge were normal in room air and he reported no dyspnea. (2) Abdominal distension: Patient had distension at time of ER presentation. The patient reported it markedly improved after he passed considerable flatus and had a large stool. I checked abdominal x-rays just prior to discharge and this was normal. He had no evidence of ileus or obstructive process. He apparently struggles with constipation and I advised miralax and/or senna daily for maintenance. The abdominal distension very well could have contributed to mild dyspnea just prior to admission. (3) Acute kidney injury superimposed on chronic kidney disease: Creatinine upon admission was 2.70. Repeat creatinine 2.66. Prior creatinine range 1.77-2.44. This is likely secondary to addition of valsartan 40 mg daily on 05/09/2019, increased usage of Lasix and metolazone since that time, and potentially even mild urinary retention as he had stopped his alpha ponce recently. Recommendations - * hold lasix day of discharge and 05/26/2019 * resume lasix at prior dosing on 05/27/2019 * hold metazolone unless otherwise instructed by PCP and/or nephrology * recheck BMP in 2-3 days post-d/c for stability of creatinine * hold ARB unless otherwise instructed by PCP and/or nephrology * continue daily weights (4) Hypertension: controlled during the visit cont prior home meds except for ARB (5) Chronic diastolic heart failure: euvolemic or slightly hypovolemic while here repeat echo with preserved EF and grade 1 diastolic dysfunction (6) BPH loc w urin obs/LUTS: advised to RESUME flomax 0.4mg once daily due to known BPH issues (7) Urinary retention with incomplete bladder emptying: See above re: flomax (8) Obstructive sleep apnea: patient with untreated MARISA f/u with PCP as outpatient for work-up/treatment (9) Pulmonary asbestosis: (10) Uncontrolled type 2 diabetes mellitus with kidney complication, with long- term current use of insulin: resume prior insulin regimen at d/c Total Time Total Time Spent Total Time Spent (In Minutes): 40 Total Time Includes: Examination of the Patient, Discharge Planning and Medication Reconciliation Discharge Plan Discharge Items Patient Disposition: Home - Self-Care Reason For Visit: acute kidney injury; shortness of breath Discharge Diagnosis: 1. mild acute kidney injury (a rise in your creatinine/kidney value above your typical "baseline") 2. abdominal distension - improved 3. recent increase in weight due to a combination of chronic kidney disease and chronic diastolic congestive heart failure Activity: Resume your previous activity Activity Comment: as tolerated Non-emergency contact: Primary Care Provider and Rn Recruitment Call non-emergency contact if: you have any medication questions and your symptoms worsen Follow-up/Referrals: Giovany Loo MD [Primary Care Provider] - 05/28/19 11:00 am (see Dr Loo or his associates within 1 week. F/U appointment will be with Jordana Ghosh May 28, 2019 11:00. ) Heraclio Gasca DO [Physician] - 05/28/19 10:00 am (see Dr Gasca THIS WEEK if possible ) Diet: Carb Consistent or DM2 and Heart Healthy Fluids: 1800ml (7 cups) Addtl Attending Provider Instructions: You were treated for the problems listed above in "discharge diagnoses." With respect to your shortness of breath - your chest x-ray was clear, your echocardiogram showed normal ejection fraction/normal squeezing of the heart muscle (you do have something called diastolic dysfunction which is a form of congestive heart failure, however), and your blood work for your heart was negative (no evidence of heart attack). Your heart monitoring was also normal. It is possible that the abdominal distension was contributing to your shortness of breath. You had abdominal distension at time of presentation to the ER. This may have been a combination of excess gas in the intestines and stool. This improved during your short stay as you moved your bowels. I cannot rule out that retained fluid in the abdomen also contributed to your distension earlier this weekend. In addition, your kidney number (creatinine) was elevated above your baseline creatinine level. The peak creatinine level was 2.7. It came down to 2.6 before discharge. Your typical baseline creatinine level range is 2 to 2.4. Recommendations - 1. HOLD all diuretics (lasix, metazolone, etc) tonight and on Sunday. 2. Resume your furosemide on SUNDAY AM, 05/27/2019. 3. STOP your valsartan. 4. for constipation - take jxjh-zsh-tecqoyf miralax once daily; would do this for 10-14 days. If needed you can add in oxac-zii-wrhvnyy senna for additional constipation assistance. 5. check your weights every day on the same scale. Best to do this first thing in am after using the toilet. Please notify Dr Loo or Dr Gasca of any weight gains of more than 3 pounds in 1-2 days. 6. RESUME tamsulosin 0.4mg daily for enlarged prostate. 7. have a repeat Basic Metabolic Panel on Sunday AM, 05/28/2019. This will recheck your creatinine. Follow-up - We will try to arrange an appointment with Dr Gasca for later this week for your Congestive Heart Failure Instructions - Call 911 and go to the Emergency Room if: * You have tightness or pain in your chest that does not go away with rest or Nitroglycerin * You are very short of breath even with rest Call your doctor if any of the following symptoms or problems start or get worse: * Shortness of breath or difficulty breathing * Wake up at night short of breath * Chest pain * Cough * Swelling of your hands, fee, or legs * More fatigued or tired with your normal activity * Palpitations - sudden fast heart beats WEIGHT * Weigh yourself every morning after using the bathroom. * Use the same scale. * Wear the same amount of clothing. * Write your weight down on your chart. * Call your doctor if you gain more than 3 pounds in 1-2 days. MEDICATIONS * Use this discharge instruction sheet for instructions. * Take your medications at the time your doctor ordered. * Do not skip a dose of your medicines. * If you miss a dose of medicine, take as soon as possible, but DO NOT DOUBLE A DOSE. * Read your medicine information when you get home. * Know all of the side effects of your medicine. * Call your doctor's office if you have any side effects. * Be sure all of your doctors know what medicine and herbs you take (including cold, flu, and herbal medicine). * Pain Medicine: If you do not get relief from your pain, please call your doctor for help. Take the following with you to your follow-up doctor appointments: * Weight Chart * Medication List * List of questions Do not drink excessive alcohol, beer or wine. Pending Studies at Discharge: No Stand-Alone Forms: My [employer], Smoking Cessation Medications and DC Order Prescriptions: New tamsulosin 0.4 mg Capsule 0.4 mg PO HS Qty: 30 RF: 2 Continued hydralazine 25 mg tablet 25 mg PO BID Qty: 90 RF: 3 Hold Instructions: low BP isosorbide mononitrate 60 mg tablet extended release 24 hr 60 mg PO QAM Qty: 90 RF: 1 (DME) OneTouch Verio strip See Dose Instructions .ROUTE .MEDSUPPLY Qty: 150 RF: 5 insulin asp prt-insulin aspart [Novolog Mix 70-30FlexPen U-100] 100 unit/mL (70-30) insulin pen See Rx Instructions SQ DAILY Qty: 3 RF: 5 carvedilol 25 mg tablet 25 mg PO BID Qty: 60 RF: 5 calcitriol 0.25 mcg capsule 0.25 mcg PO MONWEDFRI Qty: 30 RF: 3 potassium chloride 20 mEq tablet extended release 20 meq PO BID Qty: 60 RF: 2 (DME) Adjustable Bed Qty: 1 RF: 0 (DME) insulin syringe-needle U-100 [BD Insulin Syringe Ultra-Fine] 0.5 mL 31 gauge x 5/16" syringe See Dose Instructions .ROUTE .MEDSUPPLY Qty: 10 RF: 0 (DME) lancets [OneTouch Delica Lancets] 33 gauge misc See Dose Instructions .ROUTE .MEDSUPPLY Qty: 100 RF: 0 (DME) pen needle, diabetic [Comfort EZ Pen Criders] 31 gauge x 1/4" needle See Dose Instructions .ROUTE .MEDSUPPLY Qty: 30 RF: 0 aspirin [Aspir-81] 81 mg Tablet,Delayed Release (Dr/Ec) 81 mg PO QAM RF: 0 ferrous sulfate 325 mg (65 mg iron) tablet 325 mg PO DAILY RF: 0 metolazone 5 mg tablet 5 mg PO DIRECTED PRN (Reason: weight gain) RF: 0 Hold Instructions: Home Medication placed on hold at Doctor's office allopurinol 100 mg tablet 200 mg PO BID RF: 0 Discontinued valsartan 40 mg tablet 40 mg PO DAILY Qty: 90 RF: 2 No Action furosemide 40 mg tablet 40 mg PO BID Qty: 360 RF: 1 Discharge Orders: Discharge Order (Routine); Ordered 05/25/19 Ordered By: Luis You Admission Data Admit Date/Time: 05/25/19 01:50 Attending Provider: Luis You Admit Provider: Dennis Aguilar Primary Care Provider: Giovany Loo Other Providers: Dennis Aguilar Other Interventions: Discharge Summary Assessment (RN) Last Done: 05/25/19 18:11 DC Date/Time DO NOT enter until pt leaves facility: 05/25/19 18:59 Coding Level of Care Code 57701 OBS Care - Discharge Diagnoses SOB (shortness of breath) R06.02 Abdominal distension R14.0 Acute kidney injury superimposed on chronic kidney disease N17.9; N18.9 Hypertension I10 Chronic diastolic heart failure I50.32 BPH loc w urin obs/LUTS N40.1 Urinary retention with incomplete bladder emptying R33.9 Obstructive sleep apnea G47.33 Pulmonary asbestosis J61 Uncontrolled type 2 diabetes mellitus with kidney complication, with long-term current use of insulin E11.29; E11.65; Z79.4
[2019-05-25] MEDS ORDERED: TAMSULOSIN HCL 0.4 MG CAP PO SCH (21:00)
[2019-05-26] MEDS ORDERED: CALCITRIOL 0.25 MCG CAPSULE PO SCH (09:00)
== END 2019-05-25 18:59 | disposition home or self-care (01) ==
LOC: ED 22:41 → 2E 22:41 → SUATTDRO 05-25 01:50 → 2E 05-25 02:35

== ENCOUNTER 2020-12-09 14:06 | Observation (INO) ==
[2020-12-09] MEDS ORDERED: SODIUM CHLORIDE 0.9% 1000ML 1,000 ML IV ONE (17:07)
[2020-12-09] MEDS ORDERED: dexAMETHasone**PF** 10 MG/ML VIAL IV ONE (17:20)
--- NOTE | 2020-12-09 17:23 | Emergency Department Note ---
Impression & Plan Hypoxia, Pneumonia, COVID-19 ED Provider Note NAME: PRAMOD DELCID AGE: 65 SEX: M : 1955 ARRIVES VIA: Walk-In INFORMANT: Patient ED PROVIDER(S): Faisal Stoll DO CHIEF COMPLAINT: Cough and shortness of breath HPI: Patient is a 65-year-old male who presents the ER for cough and shortness of breath which started over a week ago. He denies any chest pain. Shortness of breath is significantly worsened with up moving around. He has been tested and it came back positive for Covid. Denies any dysuria, urgency, or frequency. He does have some nausea. He has a CHF diabetes and was a previous smoker. He is vaccinated. ROS: See above HPI for pertinent positives & negatives. A total of 10 systems reviewed and were otherwise negative. PAST MEDICAL HISTORY:See Below PAST SURGICAL HISTORY:See Below FAMILY HISTORY:See Below SOCIAL HISTORY:See Below HOME MEDICATIONS:See Below ALLERGIES:See Below VITALS:See Below PHYSICAL EXAMINATION: GENERAL: Sitting up in bed, alert, dyspneic after exertion, intermittent cough EYE EXAM: normal conjunctiva. PERRL and EOM's grossly intact. OROPHARYNX: Mask in place NECK: supple, no nuchal rigidity, no adenopathy, non-tender LUNGS: Clear to auscultation. Normal chest wall mechanics HEART: no murmurs, S1 normal and S2 normal ABDOMEN: abdomen soft, non-tender, normo-active bowel sounds, no masses, no rebound or guarding. BACK: Back is symmetrical on inspection and there is no deformity, no midline tenderness, no CVA tenderness. SKIN: no rashes and no bruising UPPER EXTREMITIES: upper extremities are grossly normal. LOWER EXTREMITIES: No pitting edema. NEURO EXAM: Normal sensorium, cranial nerves II-XII grossly intact, normal speech, no gross weakness of arms, no gross weakness of legs. MEDICAL DECISION MAKING: Patient is a 62-year-old since the ER Covid positive and was found to be hypoxic. IV was established blood work was obtained. Labs were found to be leukopenia 4000 no significant anemia. BMP with mild hypokalemia at 3.3. Creatinine up to 8. Consistent with previous. Troponin negative. Pro-Nacho negative Covid positive. Chest x-ray with bilateral infiltrates. He was given fluids and Decadron. He remained on nasal cannula. Updated at bedside. Admi tted to the hospital. Triage Nursing notes reviewed. Limited review of prior medical records performed Vital Signs: reviewed and remarkable for HTN Differential diagnosis: Differential diagnoses includes but is not limited to pneumonia, bronchitis, COPD/Asthma exacerbation, pneumothorax, pulmonary embolism, congestive heart failure, acute coronary syndrome ER treatment provided: See below Diagnostics interpreted by me: ECG: Sinus rhythm rate 84 Normal axis No PVCs QTC 470 Cardiac Monitoring: An order was placed for continuous cardiac monitoring. The monitor shows a rate of 80 with sinus rhythm. Laboratory studies: As stated above and show below. Imaging studies: Chest x-ray with multifocal pneumonia Consultation(s): Discussed with hospitalist for admission Procedures: none Critical Care: I have personally spent 33 minutes of critical care time in the direct management of this patient. This includes bedside care, interpretation of diagnostic studies, and testing, discussion with consultants, patient, and family members, and other required patient management activities. This 33 minutes is in excess of all separately billable procedures. Past Med/Surg History Medical History Acute renal failure Chronic kidney disease (CKD) Stage III-Dr. Gasca Diverticular disease Fatty liver Glaucoma NO MEDICATIONS. "PRE-GLAUMCOMA" Gout Pancreatitis H/O Paresthesia of right upper extremity Pulmonary nodules Surgical History Fusion of spine C4-7 ACDF H/O cervical spine surgery H/O elbow surgery LEFT History of cardiac cath NO STENTS. FOLLOWS WITH DR. PRYOR. History of colonoscopy History of esophagogastroduodenoscopy (EGD) History of tonsillectomy S/P Achilles tendon repair LEFT S/P wrist surgery Family History Grandmother Family history of diabetes mellitus Uncle Family history of diabetes mellitus Father COPD (chronic obstructive pulmonary disease) Lung disease Mother Hypertension Aunt Colorectal cancer Denies family history of Ovarian cancer Prostate cancer Myocardial infarction Breast cancer Social History Smoking Status: Former smoker Tobacco Type: Cigars Cigarettes Per Day: Rare cigar smoker, ~1x month; Second Hand Exposure: No; Hx Alcohol Use: Yes Alcohol type: wine Hx Substance Use: No Preferred Language: Tamaz[place] Communication Ability: Effective Visual Impairment: No Limitations Hearing Ability: Hard of Hearing [employer] Program Director Required: No Beliefs That Will Affect Care: None marital status: Current Living Situation: Spouse current occupational status: employed and disabled 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 Feels Safe at Home: Yes Childhood Exposure to Second-Hand Smoke: Yes caffeine: Yes (very rare) during the past year weight has: remained stable Dental Care, Regularly: No Physical Activity Frequency: Does not Exercise Seatbelt Use: always Sunscreen Use: No Assistive Devices: CPAP and Glasses Allergies Allergies Allergy/AdvReac Type Severity Reaction Status Date / Time ketorolac [From Toradol] Allergy Severe kidney Verified 12/09/20 17:52 failure NSAIDS (Non-Steroidal Allergy Unknown Unknown Verified 12/09/20 17:52 Anti-Inflamma Rfsukoj-Eho-Ibp Reductase AdvReac Intermediate Muscle pain Verified 12/09/20 17:52 Inhibitor Home Meds Home Medications Medication Instructions Recorded Confirmed aspirin 81 mg tablet,delayed 81 mg PO QAM 12/11/17 12/09/20 release (Aspir-) furosemide 40 mg tablet 40 mg PO BID 12/09/20 12/09/20 Previous Rx's Medication Instructions Recorded ferrous sulfate 325 mg (65 mg 325 mg PO DAILY #90 tab 09/24/19 iron) tablet cyclobenzaprine 5 mg tablet See Rx Instructions .ROUTE 02/24/20 .COMPLEX PRN #20 tab carvedilol 25 mg tablet 25 mg PO BID #60 tab 03/11/20 calcitriol 0.25 mcg capsule 0.25 mcg PO MONWEDFRI #36 cap 05/18/20 rosuvastatin 5 mg tablet 5 mg PO DAILY #30 tab 06/10/20 allopurinol 100 mg tablet 200 mg PO BID #360 tab 06/23/20 metolazone 5 mg tablet 5 mg PO DIRECTED PRN #20 tab 06/30/20 hydralazine 25 mg tablet 25 mg PO BID #180 tab 08/24/20 fluoxetine 40 mg capsule 40 mg PO DAILY #30 cap 08/27/20 cholecalciferol (vitamin D3) 25 25 mcg PO DAILY #90 cap 11/09/20 mcg (1,000 unit) capsule potassium chloride 20 mEq 20 meq PO .COMPLEX #180 tab 11/17/20 tablet,extended release isosorbide mononitrate 60 mg 60 mg PO QAM #90 tab 11/30/20 tablet,extended release 24 hr Novolin 70/30 U-100 Insulin 100 See Rx Instructions SQ DAILY #50 12/01/20 unit/mL subcutaneous suspension ml NS (insulin NPH and regular human) Results & Data (ED) Vital Signs Vital Signs - 24 hr 12/09/20 14:50 12/09/20 17:39 12/09/20 17:44 Temperature 37.5 C Temperature Source Temporal Artery Scan Pulse Rate 88 80 83 Pulse Rate [Apical] Pulse Rate from SpO2 Sensor Respiratory Rate 20 24 22 Respiratory Effort / Characteristics Short of Breath Respiratory Depth Respiratory Pattern Regular Blood Pressure 148/80 H Blood Pressure [Left Arm] Blood Pressure Mean 102 Blood Pressure Mean [Left Arm] Blood Pressure Position Sitting Blood Pressure Position [Left Arm] Pulse Oximetry 91 87 L Oxygen Delivery Method Room Air Room Air Oxygen Flow Rate Sepsis Recent Fever Within 48 Hours No Sepsis New/Unexplained Change in Mental Status N/A Sepsis Action Taken by Nursing No Action Required Oxygen Flow Rate - Titration Pulse Oximetry Post Tiitration 12/09/20 17:47 12/09/20 17:56 12/09/20 18:01 Temperature Temperature Source Pulse Rate 80 Pulse Rate [Apical] 78 Pulse Rate from SpO2 Sensor 81 Respiratory Rate 24 25 H Respiratory Effort / Characteristics Spontaneous Short of Breath Respiratory Depth Normal Respiratory Pattern Regular Blood Pressure 173/80 H Blood Pressure [Left Arm] 167/74 H Blood Pressure Mean 111 Blood Pressure Mean [Left Arm] 105 Blood Pressure Position Blood Pressure Position [Left Arm] Sitting Pulse Oximetry 99 87 L 99 Oxygen Delivery Method Nasal Cannula Room Air Nasal Cannula Oxygen Flow Rate 3 3 Sepsis Recent Fever Within 48 Hours Sepsis New/Unexplained Change in Mental Status Sepsis Action Taken by Nursing Oxygen Flow Rate - Titration 3 Pulse Oximetry Post Tiitration 98 12/09/20 19:00 Temperature Temperature Source Pulse Rate 76 Pulse Rate [Apical] Pulse Rate from SpO2 Sensor 76 Respiratory Rate 24 Respiratory Effort / Characteristics Respiratory Depth Respiratory Pattern Blood Pressure 143/89 H Blood Pressure [Left Arm] Blood Pressure Mean 107 Blood Pressure Mean [Left Arm] Blood Pressure Position Blood Pressure Position [Left Arm] Pulse Oximetry 98 Oxygen Delivery Method Nasal Cannula Oxygen Flow Rate 3 Sepsis Recent Fever Within 48 Hours Sepsis New/Unexplained Change in Mental Status Sepsis Action Taken by Nursing Oxygen Flow Rate - Titration Pulse Oximetry Post Tiitration Laboratory Data Result diagrams: 12/09/20 17:28 12/09/20 17:28 Lab Results 12/09/20 12/09/20 12/09/20 Range/Units 17:28 17:28 17:28 WBC 4.05 L (4.8-10.8) K/uL RBC 4.60 L (4.7-6.1) M/uL Hgb 13.5 L (14.0-18.0) g/dL Hct 38.5 L (42-52) % MCV 83.7 (80-100) fL MCH 29.3 (25-34) pg MCHC 35.1 (32-36) g/dL RDW Std Deviation 39.3 (36.4-46.3) fL RDW Coeff of Junito 13.0 (11.5-14.5) % Plt Count 194 (130-400) K/uL MPV 10.0 (7.4-10.4) fL Immature Gran % (Auto) 0.2 % Neut % (Auto) 76.7 % Lymph % (Auto) 12.3 % [place] % (Auto) 10.6 % Eos % (Auto) 0.2 % Baso % (Auto) 0.0 % Neut # (Auto) 3.10 (1.4-6.5) K/uL Lymph # (Auto) 0.50 L (1.2-3.4) K/uL [place] # (Auto) 0.43 (0.11-0.59) K/uL Eos # (Auto) 0.01 (0-0.5) K/uL Baso # (Auto) 0.00 (0-0.2) K/uL Immature Gran # (Auto) 0.01 (0.00-0.02) K/uL APTT 30.7 (21.0-31.0) Seconds PTT Ratio 1.2 Sodium 135 L (136-145) mmol/L Potassium 3.3 L (3.5-5.1) mmol/L Chloride 102 (98-107) mmol/L Carbon Dioxide 27 (21-32) mmol/L Anion Gap 6.0 (3-11) BUN 21 H (7-18) mg/dl Creatinine 1.80 H (0.6-1.4) mg/dl Est Cr Clr Drug Dosing 45.0 ml/min Est GFR ( Amer) 45.4 ml/min Est GFR (Non-Af Amer) 39.2 ml/min BUN/Creatinine Ratio 11.6 (10-20) Glucose 166 H (70-99) mg/dl Calcium 9.0 (8.5-10.1) mg/dl Total Bilirubin 0.9 (0.2-1) mg/dl AST 29 (15-37) U/L ALT 14 (12-78) U/L Alkaline Phosphatase 104 (45-117) U/L Troponin I < 0.015 (0-0.045) ng/ml Total Protein 7.7 (6.4-8.2) gm/dl Albumin 2.8 L (3.4-5.0) gm/dl Globulin 4.9 H (2.5-4.0) gm/dl Albumin/Globulin Ratio 0.6 L (0.9-2) Lipase 112 (73-393) U/L Procalcitonin (0-0.5) ng/ml COVID-19 Eval Order SARS-CoV-2 (PCR) (Negative) 12/09/20 12/09/20 12/09/20 Range/Units 17:28 17:28 17:28 WBC (4.8-10.8) K/uL RBC (4.7-6.1) M/uL Hgb (14.0-18.0) g/dL Hct (42-52) % MCV (80-100) fL MCH (25-34) pg MCHC (32-36) g/dL RDW Std Deviation (36.4-46.3) fL RDW Coeff of Junito (11.5-14.5) % Plt Count (130-400) K/uL MPV (7.4-10.4) fL Immature Gran % (Auto) % Neut % (Auto) % Lymph % (Auto) % [place] % (Auto) % Eos % (Auto) % Baso % (Auto) % Neut # (Auto) (1.4-6.5) K/uL Lymph # (Auto) (1.2-3.4) K/uL [place] # (Auto) (0.11-0.59) K/uL Eos # (Auto) (0-0.5) K/uL Baso # (Auto) (0-0.2) K/uL Immature Gran # (Auto) (0.00-0.02) K/uL APTT (21.0-31.0) Seconds PTT Ratio Sodium (136-145) mmol/L Potassium (3.5-5.1) mmol/L Chloride (98-107) mmol/L Carbon Dioxide (21-32) mmol/L Anion Gap (3-11) BUN (7-18) mg/dl Creatinine (0.6-1.4) mg/dl Est Cr Clr Drug Dosing ml/min Est GFR ( Amer) ml/min Est GFR (Non-Af Amer) ml/min BUN/Creatinine Ratio (10-20) Glucose (70-99) mg/dl Calcium (8.5-10.1) mg/dl Total Bilirubin (0.2-1) mg/dl AST (15-37) U/L ALT (12-78) U/L Alkaline Phosphatase (45-117) U/L Troponin I (0-0.045) ng/ml Total Protein (6.4-8.2) gm/dl Albumin (3.4-5.0) gm/dl Globulin (2.5-4.0) gm/dl Albumin/Globulin Ratio (0.9-2) Lipase (73-393) U/L Procalcitonin 0.36 (0-0.5) ng/ml COVID-19 Eval Order Covid19 at [facility] SARS-CoV-2 (PCR) POSITIVE A* (Negative) Administered Medications Benzonatate (Benzonatate 100 Mg Capsule) 100 mg PO TID PRN PRN Reason: cough Stop: 01/08/21 21:09 Last Admin: 12/09/20 22:19 Dose: 100 mg Documented by: [id number] Discontinued Medications Dexamethasone Sodium Phosphate (DexamethasonePf 10 Mg/Ml Vial) 8 mg IV NOW ONE Stop: 12/09/20 17:21 Last Admin: 12/09/20 17:44 Dose: 8 mg Documented by: [id number] Sodium Chloride (Nss 1000ml) 1,000 mls @ 999 mls/hr IV .Q1H1M ONE Stop: 12/09/20 18:07 Last Infusion: 12/09/20 20:14 Dose: 0 mls/hr Documented by: [id number] Admin: 12/09/20 17:42 Dose: 999 mls/hr Documented by: [id number] Potassium Chloride (Potassium Chloride Crtab 20 Meq Tabcr) 40 meq PO NOW STA Stop: 12/09/20 19:02 Last Admin: 12/09/20 20:08 Dose: 40 meq Documented by: [id number] Imaging Data Radiologist's Impression: Chest X-Ray 12/09/20 17:06 SINGLE VIEW CHEST CLINICAL HISTORY: Atypical chest pain. FINDINGS: An AP, portable, upright chest radiograph is compared to study dated 05/24/2019 and correlated with chest CT dated 08/19/2018. The examination is degraded by portable technique and apical lordotic positioning. The heart is mildly enlarged. Multifocal airspace opacities are seen throughout both lungs. No large pleural effusion or pneumothorax is seen. The bony thorax is grossly intact. Fusion hardware is noted in the lower cervical spine. A left shoulder arthroplasty is in place. IMPRESSION: Multifocal airspace opacities throughout both lungs are typical for an infectious/inflammatory pneumonitis. Clinical correlation will be required and radiographic follow-up to resolution is recommended. ACT 112: Negative or not required by law. Electronically signed by: Jose Dumont M.D. 12/09/2020 7:10 PM Discharge Plan Visit Data Chief Complaint: Cough Stated Complaint: COV+,COUGH WONT GO AWAY,SOB ED Provider: Faisal Stoll Discharge Problem: Hypoxia, Pneumonia, COVID-19 Patient Disposition: Admitted As Inpatient Discharge Instructions Interventions: ED Discharge Assessment Last Done: 12/09/20 20:48 Discharge Problem: Pneumonia Qualifiers: Pneumonia type: due to unspecified organism Laterality: unspecified laterality Lung location: unspecified part of lung Qualified Code(s): J18.9 - Pneumonia, unspecified organism
[2020-12-09 18:02] LABS: Eosinophils # (auto) 0.01 K/uL (0-0.5); Eosinophils % (auto) 0.2 %; Hematocrit (blood only) 38.5 % (42-52); Hemoglobin 13.5 g/dL (14.0-18.0); Immature Granulocytes # (auto) 0.01 K/uL (0.00-0.02); Immature Granulocytes % (auto) 0.2 %; Lymphocytes % (auto) 12.3 %; Mean Corpuscular Hemoglobin 29.3 pg (25-34); Mean Corpuscular Hgb Conc 35.1 g/dL (32-36); Mean Corpuscular Volume 83.7 fL (80-100); Monocytes # (auto) 0.43 K/uL (0.11-0.59); Monocytes % (auto) 10.6 %; Neutrophils % (auto) 76.7 %; Platelet Count 194 K/uL (130-400); RDW Standard Deviation 39.3 fL (36.4-46.3); White Blood Count 4.05 K/uL (4.8-10.8)
[2020-12-09 18:08] LABS: Partial Thromboplastin Ratio 1.2; Partial Thromboplastin Time 30.7 Seconds (21.0-31.0)
[2020-12-09 18:17] LABS: Alanine Aminotransferase 14 U/L (12-78); Albumin Level 2.8 gm/dl (3.4-5.0); Aspartate Aminotransferase 29 U/L (15-37); BUN Creatinine Ratio 11.6 (10-20); Blood Urea Nitrogen 21 mg/dl (7-18); Carbon Dioxide 27 mmol/L (21-32); Chloride 102 mmol/L (98-107); Est GFR (African American) 45.4 ml/min; Est GFR (Non-African American) 39.2 ml/min; Glucose 166 mg/dl (70-99); Lipase 112 U/L (73-393); Potassium 3.3 mmol/L (3.5-5.1); Sodium 135 mmol/L (136-145)
[2020-12-09 18:22] LABS: Albumin Globulin Ratio 0.6 (0.9-2); Alkaline Phosphatase 104 U/L (45-117); Bilirubin,Total 0.9 mg/dl (0.2-1); Globulin 4.9 gm/dl (2.5-4.0); Total Protein 7.7 gm/dl (6.4-8.2); Troponin I < 0.015 ng/ml (0-0.045)
[2020-12-09] MEDS ORDERED: POTASSIUM CHLORIDE CRTAB 20 MEQ TABCR PO STA (19:01)
--- NOTE | 2020-12-09 19:11 | XRay Report ---
SINGLE VIEW CHEST CLINICAL HISTORY: Atypical chest pain. FINDINGS: An AP, portable, upright chest radiograph is compared to study dated 05/24/2019 and correlat ed with chest CT dated 08/19/2018. The examination is degraded by portable technique and apical lordot ic positioning. The heart is mildly enlarged. Multifocal airspace opacities are seen throughout both lungs. No large pleural effusion or pneumothorax is seen. The bony thorax is grossly intact. Fusion h ardware is noted in the lower cervical spine. A left shoulder arthroplasty is in place. IMPRESSION: Multifocal airspace opacities throughout both lungs are typical for an infectious/inflamm atory pneumonitis. Clinical correlation will be required and radiographic follow-up to resolution is recommended. ACT 112: Negative or not required by law. Electronically signed by: Jose Dumont M.D. 12/09/2020 7:10 PM
--- NOTE | 2020-12-09 19:32 | History & Physical Report ---
Date of Service December 09, 2020 Assessment & Plan (1) COVID-19: Plan: 65yo male presenting with Covid-19 pneumonia, hypoxia. Patient is fully vaccinated with Pfizer vaccine. 87% on room air on arrival. Labs with leukopenia, lymphopenia, mild hyponatremia. -Admit to medical -Maintain isolation precautions for Covid-19 -Supplemental O2 as needed to maintain saturations >94% -Check procalcitonin, BNP, ferritin, LDH -Dexamethasone 6mg IV daily -Lovenox 40mg BID -Albuterol PRN -Tylenol PRN -Tessalon PRN -Will continue home Vitamin D supplementation (2) Diabetes: Plan: Patient with DM. He is presently on Novolin 70/30 70units BID. Last Hgb AIC = 8.5 on 05/29/10. Presently not on Obey-inhibitor due to CKD -Will transition to Lantus with Novolog sliding scale - Lantus 30u BID. -Goal blood sugar 100 - 140 -Check HgbA1C -Pharmacy consultation appreciated - patient will be on Dexamethasone 6mg IV daily for Covid (3) Coronary artery disease: Plan: Chronic. Cardiac catheterization 11/2015 with mild CAD. Patient does endorse some chest tightness with Covid. EKG with no acute ischemic changes. Troponin negative -Continue Aspirin -Continue Carvedilol -Continue Crestor (4) Diastolic heart failure: Plan: Patient with history of NICM, prior EF 60-65% per echo May 2019, severe LVH with Type I diastolic dysfunction. Patient appears to be euvolemic. -Continue Isosorbide -Continue Carvedilol -Continue Lasix 40mg po BID (5) Asbestosis: Plan: Patient with possible ILD from asbestosis - previously worked at [employer]. Patient was seen by Pulmonary in the past - did not have pleural plaques. Possible ILD (6) Gout: Plan: Chronic -Continue Allopurinol (7) Dyslipidemia: Plan: Chronic -Continue Crestor (8) Sleep apnea: Plan: Patient with positive sleep study obtained at [facility]. He does not wear CPAP (9) Chronic kidney disease (CKD): Plan: BUN and Cr near baseline. Patient follows with Dr. Gasca -Monitor BUN, Cr, electrolytes and UOP -Continue Calcitriol -Avoid nephrotoxic agents -Renal dosing where needed (10) Hypertension: Plan: Blood pressure elevated -Continue home medications -Continue to monitor Plan: F/E/N - s/p 1L NSS in ER, K=3.3, will administer KCl 40meq now and continue daily supplementation, CC/AHA as tolerated Ppx - Lovenox 40mg BID Code - DNR/DNI per discussion with ER Dispo - Admit to medical History of Present Illness Chief Complaint: Cough, SOB Primary Care Provider: Narciso Loo MD Mr. Magdiel Ceron is a pleasant 65yo C male with multiple medical comorbidities to include DM, CAD, CKD presenting with Covid-19 infection and hypoxia. Patient reports symptoms began appx 11 days ago with a persistent dry cough. He has had some shortness of breath as well as some chest tightness, diarrhea and alteration in taste sensation. He is fully vaccinated against Covid-19 having received his second Pfizer vaccine in March 2020. No additional complaints at this time. Saturations upon arrival 87% on room air. ER Course: Dexamethasone 8mg IV, NSS x 1L Allergies Allergy/AdvReac Type Severity Reaction Status Date / Time ketorolac [From Toradol] Allergy Severe kidney Verified 12/09/20 17:52 failure NSAIDS (Non-Steroidal Allergy Unknown Unknown Verified 12/09/20 17:52 Anti-Inflamma Uhbziif-Fef-Nnq Reductase AdvReac Intermediate Muscle pain Verified 12/09/20 17:52 Inhibitor Home Medications Medication Instructions Recorded Confirmed Type aspirin 81 mg tablet,delayed 81 mg PO QAM 12/11/17 12/09/20 History release (Aspir-) ferrous sulfate 325 mg (65 mg 325 mg PO DAILY #90 tab 09/24/19 12/09/20 Rx iron) tablet cyclobenzaprine 5 mg tablet See Rx Instructions .ROUTE 02/24/20 12/09/20 Rx .COMPLEX PRN #20 tab carvedilol 25 mg tablet 25 mg PO BID #60 tab 03/11/20 12/09/20 Rx calcitriol 0.25 mcg capsule 0.25 mcg PO MONWEDFRI #36 cap 05/18/20 12/09/20 Rx rosuvastatin 5 mg tablet 5 mg PO DAILY #30 tab 06/10/20 12/09/20 Rx allopurinol 100 mg tablet 200 mg PO BID #360 tab 06/23/20 12/09/20 Rx metolazone 5 mg tablet 5 mg PO DIRECTED PRN #20 tab 06/30/20 12/09/20 Rx hydralazine 25 mg tablet 25 mg PO BID #180 tab 08/24/20 12/09/20 Rx fluoxetine 40 mg capsule 40 mg PO DAILY #30 cap 08/27/20 12/09/20 Rx cholecalciferol (vitamin D3) 25 25 mcg PO DAILY #90 cap 11/09/20 12/09/20 Rx mcg (1,000 unit) capsule potassium chloride 20 mEq 20 meq PO .COMPLEX #180 tab 11/17/20 12/09/20 Rx tablet,extended release isosorbide mononitrate 60 mg 60 mg PO QAM #90 tab 11/30/20 12/09/20 Rx tablet,extended release 24 hr Novolin 70/30 U-100 Insulin 100 See Rx Instructions SQ DAILY #50 12/01/20 12/09/20 Rx unit/mL subcutaneous suspension ml NS (insulin NPH and regular human) furosemide 40 mg tablet 40 mg PO BID 12/09/20 12/09/20 History Past Med/Surg History Medical History Acute renal failure Chronic kidney disease (CKD) Stage III-Dr. Gasca Diverticular disease Fatty liver Glaucoma NO MEDICATIONS. "PRE-GLAUMCOMA" Gout Pancreatitis H/O Paresthesia of right upper extremity Pulmonary nodules Surgical History Fusion of spine C4-7 ACDF H/O cervical spine surgery H/O elbow surgery LEFT History of cardiac cath NO STENTS. FOLLOWS WITH DR. PRYOR. History of colonoscopy History of esophagogastroduodenoscopy (EGD) History of tonsillectomy S/P Achilles tendon repair LEFT S/P wrist surgery Family History Grandmother Family history of diabetes mellitus Uncle Family history of diabetes mellitus Father COPD (chronic obstructive pulmonary disease) Lung disease Mother Hypertension Aunt Colorectal cancer Denies family history of Ovarian cancer Prostate cancer Myocardial infarction Breast cancer Social History Smoking Status: Current every day smoker Tobacco Type: Cigars Cigarettes Per Day: Rare cigar smoker, ~1x month; Second Hand Exposure: No; Hx Alcohol Use: No Hx Substance Use: No Preferred Language: Beninese Communication Ability: Effective Visual Impairment: No Limitations Hearing Ability: Hard of Hearing Project Admin Required: No Beliefs That Will Affect Care: None marital status: Current Living Situation: Spouse current occupational status: employed and disabled 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 [employer] Feels Safe at Home: Yes Childhood Exposure to Second-Hand Smoke: Yes caffeine: Yes (very rare) during the past year weight has: remained stable Dental Care, Regularly: No Physical Activity Frequency: Does not Exercise Seatbelt Use: always Sunscreen Use: No Assistive Devices: Glasses Review of Systems Review of Systems: All systems reviewed & are unremarkable except as noted in HPI & below Physical Exam Physical Exam: General: patient resting comfortably, NAD, non-toxic in appearance, AA&O x 4, supplemental O2 2L by NC Skin: warm, dry, intact, no rashes or lesions HEENT: NC/AT, PERRL, EOMI, anicteric sclera, conjunctiva without injection, external ear normal to inspection and nontender, nares patent, moist mucus membranes, dentition intact, no oropharyngeal lesions, neck supple, trachea midline, no LAD, no thyromegaly, no JVD Heart: +S1/S2, regular, no m/r/g Lungs: equal air entry bilaterally, no rales/rhonchi/wheezes Abd: +BS, soft, NT/ND, no masses/organomegaly/ascites Ext: warm, 2+ pulses in UE/LE bilaterally, no clubbing/cyanosis or edema Neuro: nonfocal, patient AA&O x 4, speech intact, no facial droop, moving all extremities on command with equal strength 5/5 Results & Data Results & Data ([facility]) Vital Signs (Past 12 Hours) Vital Signs Temp Pulse Pulse Resp BP BP Pulse Ox 12/09/20 19:00 76 24 143/89 H 98 12/09/20 18:01 80 25 H 173/80 H 99 12/09/20 17:56 87 L 12/09/20 17:47 78 24 167/74 H 99 12/09/20 17:44 83 22 12/09/20 17:39 80 24 87 L 12/09/20 14:50 37.5 C 88 20 148/80 H 91 Laboratory Results Laboratory Results WBC 4.05 K/uL (4.8-10.8) L 12/09/20 17: RBC 4.60 M/uL (4.7-6.1) L 12/09/20 17:28 Hgb 13.5 g/dL (14.0-18.0) L 12/09/20 17:28 Hct 38.5 % (42-52) L 12/09/20 17: MCV 83.7 fL (80-100) 12/09/20 17: MCH 29.3 pg (25-34) 12/09/20 17: MCHC 35.1 g/dL (32-36) 12/09/20 17: RDW Std Deviation 39.3 fL (36.4-46.3) 12/09/20 17: RDW Coeff of [place]ito 13.0 % (11.5-14.5) 12/09/20 17: Plt Count 194 K/uL (130-400) 12/09/20 17: MPV 10.0 fL (7.4-10.4) 12/09/20 17:28 Immature Gran % (Auto) 0.2 % 12/09/20 17:28 Neut % (Auto) 76.7 % 12/09/20 17:28 Lymph % (Auto) 12.3 % 12/09/20 17: [place] % (Auto) 10.6 % 12/09/20 17:28 Eos % (Auto) 0.2 % 12/09/20 17:28 Baso % (Auto) 0.0 % 12/09/20 17: Neut # (Auto) 3.10 K/uL (1.4-6.5) 12/09/20 17:28 Lymph # (Auto) 0.50 K/uL (1.2-3.4) L 12/09/20 17:28 [place] # (Auto) 0.43 K/uL (0.11-0.59) 12/09/20 17: Eos # (Auto) 0.01 K/uL (0-0.5) 12/09/20 17:28 Baso # (Auto) 0.00 K/uL (0-0.2) 12/09/20 17:28 Immature Gran # (Auto) 0.01 K/uL (0.00-0.02) 12/09/20 17:28 APTT 30.7 Seconds (21.0-31.0) 12/09/20 17: PTT Ratio 1.2 12/09/20 17:28 Sodium 135 mmol/L (136-145) L 12/09/20 17:28 Potassium 3.3 mmol/L (3.5-5.1) L 12/09/20 17:28 Chloride 102 mmol/L (98-107) 12/09/20 17:28 Carbon Dioxide 27 mmol/L (21-32) 12/09/20 17:28 Anion Gap 6.0 (3-11) 12/09/20 17:28 BUN 21 mg/dl (7-18) H 12/09/20 17:28 Creatinine 1.80 mg/dl (0.6-1.4) H 12/09/20 17:28 Est Cr Clr Drug Dosing 45.0 ml/min 12/09/20 17:28 Est GFR ( Amer) 45.4 ml/min 12/09/20 17:28 Est GFR (Non-Af Amer) 39.2 ml/min 12/09/20 17:28 BUN/Creatinine Ratio 11.6 (10-20) 12/09/20 17:28 Glucose 166 mg/dl (70-99) H 12/09/20 17:28 Calcium 9.0 mg/dl (8.5-10.1) 12/09/20 17:28 Total Bilirubin 0.9 mg/dl (0.2-1) 12/09/20 17:28 AST 29 U/L (15-37) 12/09/20 17:28 ALT 14 U/L (12-78) 12/09/20 17:28 Alkaline Phosphatase 104 U/L (45-117) 12/09/20 17:28 Troponin I < 0.015 ng/ml (0-0.045) 12/09/20 17:28 Total Protein 7.7 gm/dl (6.4-8.2) 12/09/20 17:28 Albumin 2.8 gm/dl (3.4-5.0) L 12/09/20 17:28 Globulin 4.9 gm/dl (2.5-4.0) H 12/09/20 17:28 Albumin/Globulin Ratio 0.6 (0.9-2) L 12/09/20 17:28 Lipase 112 U/L (73-393) 12/09/20 17:28 COVID-19 Eval Order Covid19 at [facility] 12/09/20 17:28 SARS-CoV-2 (PCR) POSITIVE (Negative) A* 12/09/20 17:28 Diagnostic Findings CXR - by my interpretation - diffuse bilateral airspace opacities, normal appearing cardiac shadow, s/p cervical surgery and left shoulder arthroplasty ECG Additional Comments: EKG with NSR at 84, normal axis, EP=205, QQP=778, ETt=317. No acute ischemic changes Code Status & VTE Plan VTE Prophylaxis Plan VTE Prophylaxis will be ordered: Yes PG Care Time/CCT Total # of Minutes Spent Total Time Spent with Patient: Total time spent is greater than 50% in coordination of care (as documented) at patient's floor/unit and/or counseling patient: Coding Level of Care Code 92716 Initial Inpt Care Lvl 3 Diagnoses COVID-19 U07.1 Diastolic heart failure I50.30 Coronary artery disease I25.10 Asbestosis J61 Gout M10.9 Dyslipidemia E78.5 Sleep apnea G47.30 Chronic kidney disease (CKD) N18.9 Hypertension I10 Diabetes E11.9
[2020-12-09] MEDS ORDERED: CARBOHYDRATES FOR HYPOGLYCEMIA PO PRN (21:10)
[2020-12-09] MEDS ORDERED: GLUCAGON FOR INJ 1 MG VIAL SQ PRN (21:10)
[2020-12-09] MEDS ORDERED: CYCLOBENZAPRINE HCL 5 MG TAB PO PRN (21:10)
[2020-12-09] MEDS ORDERED: ONDANSETRON INJ 2 MG/ML 2 ML VIAL IV PRN (21:10)
[2020-12-09] MEDS ORDERED: GLUCOSE 10 TABS/TUBE PO PRN (21:10)
[2020-12-09] MEDS ORDERED: ALBUTEROL HFA 8 GM INHALER INH PRN (21:10)
[2020-12-09] MEDS ORDERED: ACETAMINOPHEN 325 MG TAB PO PRN (21:10)
[2020-12-09] MEDS ORDERED: GLUCOSE 40% GEL 15 GM TUBE PO PRN (21:10)
[2020-12-09] MEDS ORDERED: DEXTROSE 50% 50 ML SYRINGE IV PRN (21:10)
[2020-12-09] MEDS: BENZONATATE 100 MG CAPSULE PO PRN (22:19)
[2020-12-09 22:44] LABS: C Reactive Protein 18.9 mg/dl (0-0.29); Ferritin 801.4 ng/ml (8-388); Magnesium 2.1 mg/dl (1.8-2.4); Phosphorus 3.5 mg/dl (2.5-4.9)
[2020-12-09] MEDS: ENOXAPARIN INJ 40 MG/0.4 ML SYR SQ SCH (23:06)
[2020-12-09] MEDS: INSULIN ASPART 100 UNITS/ML 3 ML PEN SC SCH (23:07)
[2020-12-09] MEDS: INSULIN GLARGINE SOLOSTAR 100 UNITS/ML 3 ML PEN SC SCH (23:09)
[2020-12-09] MEDS: POTASSIUM CHLORIDE CRTAB 20 MEQ TABCR PO SCH (23:12)
[2020-12-09] MEDS: FUROSEMIDE 40 MG TAB PO SCH (23:13)
[2020-12-09] MEDS: allopurinoL 100 MG TAB PO SCH (23:13)
[2020-12-09] MEDS: carvediloL 25 MG TAB PO SCH (23:14)
[2020-12-10] MEDS: dexAMETHasone 6 MG in SYRINGE 0 ML IV SCH (08:49)
[2020-12-10] MEDS: CHOLECALCIFEROL 1,000 UNITS 25 MCG TAB PO SCH (08:50)
[2020-12-10] MEDS: POTASSIUM CHLORIDE CRTAB 20 MEQ TABCR PO SCH ×2 (08:50→20:55)
[2020-12-10] MEDS: allopurinoL 100 MG TAB PO SCH ×2 (08:50→20:55)
[2020-12-10] MEDS: FLUoxetine HCL 20 MG CAP PO SCH (08:50)
[2020-12-10] MEDS: ROSUVASTATIN CALCIUM 5 MG TAB PO SCH (08:50)
[2020-12-10] MEDS: carvediloL 25 MG TAB PO SCH ×2 (08:50→21:01)
[2020-12-10] MEDS: ASPIRIN 81 MG ECTAB PO SCH (08:50)
[2020-12-10] MEDS: FUROSEMIDE 40 MG TAB PO SCH ×2 (08:50→20:54)
[2020-12-10] MEDS: ENOXAPARIN INJ 40 MG/0.4 ML SYR SQ SCH ×2 (08:51→21:00)
[2020-12-10] MEDS: ISOSORBIDE MONO EXTENDED REL 60 MG TABCR PO SCH (08:51)
[2020-12-10] MEDS: FERROUS SULFATE 325 MG TAB PO SCH (08:51)
[2020-12-10] MEDS ORDERED: CALCITRIOL 0.25 MCG CAPSULE PO SCH (09:00)
[2020-12-10] MEDS: INSULIN ASPART 100 UNITS/ML 3 ML PEN SC SCH ×4 (09:00→20:57)
[2020-12-10] MEDS: INSULIN GLARGINE SOLOSTAR 100 UNITS/ML 3 ML PEN SC SCH ×2 (09:00→20:59)
[2020-12-10 09:36] LABS: Hematocrit (blood only) 39.2 % (42-52); Hemoglobin 13.6 g/dL (14.0-18.0); Immature Granulocytes # (auto) 0.01 K/uL (0.00-0.02); Immature Granulocytes % (auto) 0.3 %; Lymphocytes # (auto) 0.32 K/uL (1.2-3.4); Lymphocytes % (auto) 10.7 %; Mean Corpuscular Hemoglobin 29.1 pg (25-34); Mean Corpuscular Hgb Conc 34.7 g/dL (32-36); Mean Corpuscular Volume 83.8 fL (80-100); Mean Platelet Volume 9.9 fL (7.4-10.4); Monocytes # (auto) 0.25 K/uL (0.11-0.59); Monocytes % (auto) 8.3 %; Neutrophils # (auto) 2.42 K/uL (1.4-6.5); Neutrophils % (auto) 80.7 %; Platelet Count 223 K/uL (130-400); RDW Coefficient of Variation 12.8 % (11.5-14.5); RDW Standard Deviation 38.8 fL (36.4-46.3); Red Blood Count 4.68 M/uL (4.7-6.1)
[2020-12-10 09:50] LABS: Estimated Average Glucose 212 mg/dl
--- NOTE | 2020-12-10 09:52 | Electrocardiogram Report ---
Test Reason : Blood Pressure : / mmHG Vent. Rate : 084 BPM Atrial Rate : 084 BPM P-R Int : 158 ms QRS Dur : 110 ms QT Int : 398 ms P-R-T Axes : 044 080 048 degrees QTc Int : 470 ms Normal sinus rhythm Normal ECG When compared with ECG of 24-FEB-2020 15:01, No significant change was found Confirmed by Phillip Beaulieu ([id number]) on 12/10/2020 9:52:08 AM Referred By: REFERRED SELF Confirmed By:Phillip Beaulieu
[2020-12-10 10:11] LABS: BUN Creatinine Ratio 16.1 (10-20); Creatinine Clr Calc Pharmacy 42.2 ml/min; Est GFR (Non-African American) 36.2 ml/min; Potassium 3.6 mmol/L (3.5-5.1)
[2020-12-10 10:26] LABS: Beta-Hydroxybutyrate 6.7 mg/dl (0.2-2.81)
--- NOTE | 2020-12-10 14:26 | Hospitalist Progress Note ---
Date of Service December 10, 2020 Assessment & Plan (1) COVID-19: Plan: 65yo male presenting with Covid-19 pneumonia, hypoxia. Patient is fully vaccinated with Pfizer vaccine. 87% on room air on arrival. Labs with leukopenia, lymphopenia, mild hyponatremia. -Dexamethasone 6mg IV daily, day 2 -Lovenox 40mg BID -Albuterol PRN -Tylenol PRN -Tessalon PRN down to room air, 1L at my time of examination, if he can remain on room air through tomorrow will consider discharge check BMP in AM (2) Diabetes: Plan: Patient with DM. He is presently on Novolin 70/30 70units BID. Last Hgb AIC = 8.5 on 05/29/10. Presently not on Obey-inhibitor due to CKD -Will transition to Lantus with Novolog sliding scale - Lantus 30u BID. -Goal blood sugar 100 - 140 -Check HgbA1C -Pharmacy consultation appreciated - patient will be on Dexamethasone 6mg IV daily for Covid (3) Coronary artery disease: Plan: Chronic. Cardiac catheterization 11/2015 with mild CAD. Patient does endorse some chest tightness with Covid. EKG with no acute ischemic changes. Troponin negative -Continue Aspirin -Continue Carvedilol -Continue Crestor (4) Diastolic heart failure: Plan: Patient with history of NICM, prior EF 60-65% per echo May 2019, severe LVH with Type I diastolic dysfunction. Patient appears to be euvolemic. -Continue Isosorbide -Continue Carvedilol -Continue Lasix 40mg po BID (5) Asbestosis: Plan: Patient with possible ILD from asbestosis - previously worked at [employer]. Patient was seen by Pulmonary in the past - did not have pleural plaques. Possible ILD (6) Gout: Plan: Chronic -Continue Allopurinol (7) Dyslipidemia: Plan: Chronic -Continue Crestor (8) Sleep apnea: Plan: Patient with positive sleep study obtained at [facility]. He does not wear CPAP (9) Chronic kidney disease (CKD): Plan: Cr is 1.8 which is baseline -Monitor BUN, Cr, electrolytes and UOP -Continue Calcitriol -Avoid nephrotoxic agents -Renal dosing where needed (10) Hypertension: Plan: Blood pressure elevated -Continue home medications -Continue to monitor Plan: F/E/N - eating well Ppx - Lovenox 40mg BID Code - DNR/DNI per discussion with ER Dispo - Admit to medical Admission and Anticipated Discharge Date Admission Date: December 09, 2020 Subjective patient reports symptoms for about a week, fatigued and then lost taste shortness of breath the past few days and a really bad cough he was vaccinated back in winter 2020, he says he and his got the vaccine once it was available, [employer] reviewed labs and chart he is 99% on 4L in the room, turned him down to 2L, 95%, took him to room air, 93% provided him with 2L canula to put on if he feels short of breath, saturations drop on pulse ox discussed that if he can stay on room air through tomorrow then we can consider discharge eating and drinking well, having some diarrhea Review of Systems Review of Systems: All systems reviewed & are unremarkable except as noted in Subjective Constitutional: + fatigue and + weakness Respiratory: + cough, + dyspnea and + dyspnea on exertion Gastrointestinal: + diarrhea/loose stools; no abdominal pain, no nausea, no vomiting and no constipation Results & Data Results & Data ([facility]) Vital Signs (Past 12 Hours) Vital Signs Temp Pulse Resp BP Pulse Ox 12/10/20 08:00 36.6 C 76 20 160/78 H 98 Laboratory Results Laboratory Results - last 24 hr 12/09/20 12/09/20 12/09/20 17:28 17:28 17:28 WBC 4.05 L RBC 4.60 L Hgb 13.5 L Hct 38.5 L MCV 83.7 MCH 29.3 MCHC 35.1 RDW Std Deviation 39.3 RDW Coeff of Junito 13.0 Plt Count 194 MPV 10.0 Immature Gran % (Auto) 0.2 Neut % (Auto) 76.7 Lymph % (Auto) 12.3 Rowan % (Auto) 10.6 Eos % (Auto) 0.2 Baso % (Auto) 0.0 Neut # (Auto) 3.10 Lymph # (Auto) 0.50 L Rowan # (Auto) 0.43 Eos # (Auto) 0.01 Baso # (Auto) 0.00 Immature Gran # (Auto) 0.01 APTT 30.7 PTT Ratio 1.2 Sodium 135 L Potassium 3.3 L Chloride 102 Carbon Dioxide 27 Anion Gap 6.0 BUN 21 H Creatinine 1.80 H Est Cr Clr Drug Dosing 45.0 Est GFR ( Amer) 45.4 Est GFR (Non-Af Amer) 39.2 BUN/Creatinine Ratio 11.6 Glucose 166 H POC Glucose Estimat Average Glucose Hemoglobin A1c Calcium 9.0 Phosphorus Magnesium Ferritin Total Bilirubin 0.9 AST 29 ALT 14 Alkaline Phosphatase 104 Lactate Dehydrogenase Troponin I < 0.015 C-Reactive Protein NT-Pro-B Natriuret Pep Total Protein 7.7 Albumin 2.8 L Globulin 4.9 H Albumin/Globulin Ratio 0.6 L Lipase 112 Beta-Hydroxybutyric Acd Procalcitonin COVID-19 Eval Order SARS-CoV-2 (PCR) Hepatitis C Ab Screen 12/09/20 12/09/20 12/09/20 17:28 17:28 17:28 WBC RBC Hgb Hct MCV MCH MCHC RDW Std Deviation RDW Coeff of Junito Plt Count MPV Immature Gran % (Auto) Neut % (Auto) Lymph % (Auto) Rowan % (Auto) Eos % (Auto) Baso % (Auto) Neut # (Auto) Lymph # (Auto) Rowan # (Auto) Eos # (Auto) Baso # (Auto) Immature Gran # (Auto) APTT PTT Ratio Sodium Potassium Chloride Carbon Dioxide Anion Gap BUN Creatinine Est Cr Clr Drug Dosing Est GFR ( Amer) Est GFR (Non-Af Amer) BUN/Creatinine Ratio Glucose POC Glucose Estimat Average Glucose Hemoglobin A1c Calcium Phosphorus Magnesium Ferritin Total Bilirubin AST ALT Alkaline Phosphatase Lactate Dehydrogenase Troponin I C-Reactive Protein NT-Pro-B Natriuret Pep Total Protein Albumin Globulin Albumin/Globulin Ratio Lipase Beta-Hydroxybutyric Acd Procalcitonin 0.36 COVID-19 Eval Order Covid19 at [facility] SARS-CoV-2 (PCR) POSITIVE A* Hepatitis C Ab Screen 12/09/20 12/09/20 12/09/20 21:17 21:56 21:56 WBC RBC Hgb Hct MCV MCH MCHC RDW Std Deviation RDW Coeff of Junito Plt Count MPV Immature Gran % (Auto) Neut % (Auto) Lymph % (Auto) Rowan % (Auto) Eos % (Auto) Baso % (Auto) Neut # (Auto) Lymph # (Auto) Rowan # (Auto) Eos # (Auto) Baso # (Auto) Immature Gran # (Auto) APTT PTT Ratio Sodium Potassium Chloride Carbon Dioxide Anion Gap BUN Creatinine Est Cr Clr Drug Dosing Est GFR ( Amer) Est GFR (Non-Af Amer) BUN/Creatinine Ratio Glucose POC Glucose 218 H Estimat Average Glucose Hemoglobin A1c Calcium Phosphorus 3.5 Magnesium 2.1 Ferritin 801.4 H Total Bilirubin AST ALT Alkaline Phosphatase Lactate Dehydrogenase 311 H Troponin I C-Reactive Protein 18.90 H NT-Pro-B Natriuret Pep 485 Total Protein Albumin Globulin Albumin/Globulin Ratio Lipase Beta-Hydroxybutyric Acd Procalcitonin COVID-19 Eval Order SARS-CoV-2 (PCR) Hepatitis C Ab Screen 12/09/20 12/10/20 12/10/20 21:56 08:35 08:36 WBC RBC Hgb Hct MCV MCH MCHC RDW Std Deviation RDW Coeff of Junito Plt Count MPV Immature Gran % (Auto) Neut % (Auto) Lymph % (Auto) Rowan % (Auto) Eos % (Auto) Baso % (Auto) Neut # (Auto) Lymph # (Auto) Rowan # (Auto) Eos # (Auto) Baso # (Auto) Immature Gran # (Auto) APTT PTT Ratio Sodium Potassium Chloride Carbon Dioxide Anion Gap BUN Creatinine Est Cr Clr Drug Dosing Est GFR ( Amer) Est GFR (Non-Af Amer) BUN/Creatinine Ratio Glucose POC Glucose 318 H* 304 H* Estimat Average Glucose Hemoglobin A1c Calcium Phosphorus Magnesium Ferritin Total Bilirubin AST ALT Alkaline Phosphatase Lactate Dehydrogenase Troponin I C-Reactive Protein NT-Pro-B Natriuret Pep Total Protein Albumin Globulin Albumin/Globulin Ratio Lipase Beta-Hydroxybutyric Acd Procalcitonin COVID-19 Eval Order SARS-CoV-2 (PCR) Hepatitis C Ab Screen Neg 12/10/20 12/10/20 12/10/20 09:11 09:11 09:11 WBC 3.00 L RBC 4.68 L Hgb 13.6 L Hct 39.2 L MCV 83.8 MCH 29.1 MCHC 34.7 RDW Std Deviation 38.8 RDW Coeff of Junito 12.8 Plt Count 223 MPV 9.9 Immature Gran % (Auto) 0.3 Neut % (Auto) 80.7 Lymph % (Auto) 10.7 Rowan % (Auto) 8.3 Eos % (Auto) 0.0 Baso % (Auto) 0.0 Neut # (Auto) 2.42 Lymph # (Auto) 0.32 L Rowan # (Auto) 0.25 Eos # (Auto) 0.00 Baso # (Auto) 0.00 Immature Gran # (Auto) 0.01 APTT PTT Ratio Sodium 135 L Potassium 3.6 Chloride 103 Carbon Dioxide 25 Anion Gap 7.0 BUN 31 H Creatinine 1.92 H Est Cr Clr Drug Dosing 42.2 Est GFR ( Amer) 42.0 Est GFR (Non-Af Amer) 36.2 BUN/Creatinine Ratio 16.1 Glucose 312 H* POC Glucose Estimat Average Glucose 212 Hemoglobin A1c 9.0 H Calcium 9.0 Phosphorus Magnesium Ferritin Total Bilirubin AST ALT Alkaline Phosphatase Lactate Dehydrogenase Troponin I C-Reactive Protein NT-Pro-B Natriuret Pep Total Protein Albumin Globulin Albumin/Globulin Ratio Lipase Beta-Hydroxybutyric Acd 6.70 H Procalcitonin COVID-19 Eval Order SARS-CoV-2 (PCR) Hepatitis C Ab Screen 12/10/20 12/10/20 11:47 11:48 WBC RBC Hgb Hct MCV MCH MCHC RDW Std Deviation RDW Coeff of Junito Plt Count MPV Immature Gran % (Auto) Neut % (Auto) Lymph % (Auto) Rowan % (Auto) Eos % (Auto) Baso % (Auto) Neut # (Auto) Lymph # (Auto) Rowan # (Auto) Eos # (Auto) Baso # (Auto) Immature Gran # (Auto) APTT PTT Ratio Sodium Potassium Chloride Carbon Dioxide Anion Gap BUN Creatinine Est Cr Clr Drug Dosing Est GFR ( Amer) Est GFR (Non-Af Amer) BUN/Creatinine Ratio Glucose POC Glucose 328 H* 324 H* Estimat Average Glucose Hemoglobin A1c Calcium Phosphorus Magnesium Ferritin Total Bilirubin AST ALT Alkaline Phosphatase Lactate Dehydrogenase Troponin I C-Reactive Protein NT-Pro-B Natriuret Pep Total Protein Albumin Globulin Albumin/Globulin Ratio Lipase Beta-Hydroxybutyric Acd Procalcitonin COVID-19 Eval Order SARS-CoV-2 (PCR) Hepatitis C Ab Screen Medications Administered Current Inpatient Medications Acetaminophen (Acetaminophen 325 Mg Tab) 650 mg PO Q4H PRN PRN Reason: Pain or Fever Stop: 01/08/21 21:09 Albuterol (Albuterol Hfa 8 Gm Inhaler) 2 puffs INH Q4R PRN PRN Reason: sob Stop: 01/08/21 21:09 Allopurinol (Allopurinol 100 Mg Tab) 200 mg PO BID ANGEL Stop: 01/08/21 21:29 Last Admin: 12/10/20 08:50 Dose: 200 mg Documented by: Aspirin (Aspirin 81 Mg Ectab) 81 mg PO QAM ANGEL Stop: 01/09/21 08:59 Last Admin: 12/10/20 08:50 Dose: 81 mg Documented by: Benzonatate (Benzonatate 100 Mg Capsule) 100 mg PO TID PRN PRN Reason: cough Stop: 01/08/21 21:09 Last Admin: 12/09/20 22:19 Dose: 100 mg Documented by: Calcitriol (Calcitriol 0.25 Mcg Capsule) 0.25 mcg PO MoWeFr@0900 ANGEL Stop: 01/09/21 08:59 Last Admin: 12/10/20 08:50 Dose: 0.25 mcg Documented by: Carvedilol (Carvedilol 25 Mg Tab) 25 mg PO BID ANGEL Stop: 01/08/21 21:29 Last Admin: 12/10/20 08:50 Dose: 25 mg Documented by: Cyclobenzaprine HCl (Cyclobenzaprine Hcl 5 Mg Tab) 5 mg PO Q8H PRN PRN Reason: muscle spasm Stop: 01/08/21 21:09 Dextrose (Dextrose 50% 50 Ml Syringe) 25 - 50 ml IV UD PRN; Protocol PRN Reason: Hypoglycemia Protocol Stop: 01/08/21 21:09 Enoxaparin Sodium (Enoxaparin Inj 40 Mg/0.4 Ml Syr) 40 mg SQ Q12H ANGEL Stop: 01/08/21 21:29 Last Admin: 12/10/20 08:51 Dose: 40 mg Documented by: Ferrous Sulfate (Ferrous Sulfate 325 Mg Tab) 325 mg PO DAILY ANGEL Stop: 01/09/21 08:59 Last Admin: 12/10/20 08:51 Dose: 325 mg Documented by: Fluoxetine HCl (Fluoxetine Hcl 20 Mg Cap) 40 mg PO DAILY ANGEL Stop: 01/09/21 08:59 Last Admin: 12/10/20 08:50 Dose: 40 mg Documented by: Furosemide (Furosemide 40 Mg Tab) 40 mg PO BID ANGEL Stop: 01/08/21 21:29 Last Admin: 12/10/20 08:50 Dose: 40 mg Documented by: Glucagon (Glucagon For Inj 1 Mg Vial) 1 mg SQ UD PRN; Protocol PRN Reason: Hypoglycemia Protocol Stop: 01/08/21 21:09 Glucose (Glucose 10 Tabs/Tube) 4 - 8 tabs PO UD PRN; Protocol PRN Reason: Hypoglycemia Protocol Stop: 01/08/21 21:09 Glucose (Glucose 40% Gel 15 Gm Tube) 15 - 30 gm PO UD PRN; Protocol PRN Reason: Hypoglycemia Protocol Stop: 01/08/21 21:09 Dexamethasone 6 mg/ Syringe 1.5 mls @ 1 mls/min IV Q24H ANGEL Stop: 01/09/21 08:59 Last Admin: 12/10/20 08:49 Dose: 1 mls/min Documented by: Insulin Aspart (Insulin Aspart 100 Units/Ml 3 Ml Pen) 0 units SC ACHS ANGEL Stop: 01/08/21 21:29 Last Admin: 12/10/20 12:20 Dose: 18 units Documented by: Insulin Glargine (Insulin Glargine Solostar 100 Units/Ml 3 Ml Pen) 30 units SC BID ANGEL Stop: 01/08/21 21:29 Last Admin: 12/10/20 09:00 Dose: 30 units Documented by: Isosorbide Mononitrate (Isosorbide Rowan Extended Rel 60 Mg Tabcr) 60 mg PO QAM ANGEL Stop: 01/09/21 08:59 Last Admin: 12/10/20 08:51 Dose: 60 mg Documented by: Miscellaneous (Carbohydrates For Hypoglycemia ) 15 - 30 gm PO UD PRN PRN Reason: Hypoglycemia Protocol Stop: 01/08/21 21:09 Ondansetron HCl (Ondansetron Inj 2 Mg/Ml 2 Ml Vial) 4 mg IV Q6H PRN PRN Reason: Nausea Stop: 01/08/21 21:09 Potassium Chloride (Potassium Chloride Crtab 20 Meq Tabcr) 40 meq PO DAILY ANGEL Stop: 01/09/21 08:59 Last Admin: 12/10/20 08:50 Dose: 40 meq Documented by: Potassium Chloride (Potassium Chloride Crtab 20 Meq Tabcr) 20 meq PO HS PENDING SALE TO [facility] Stop: 01/08/21 21:59 Last Admin: 12/09/20 23:12 Dose: 20 meq Documented by: Rosuvastatin Calcium (Rosuvastatin Calcium 5 Mg Tab) 5 mg PO DAILY ANGEL Stop: 01/09/21 08:59 Last Admin: 12/10/20 08:50 Dose: 5 mg Documented by: Vitamin D (Cholecalciferol 1,000 Units 25 Mcg Tab) 1,000 units PO DAILY ANGEL Stop: 01/09/21 08:59 Last Admin: 12/10/20 08:50 Dose: 1,000 units Documented by: PG Care Time/CCT Total # of Minutes Spent Total Time Spent with Patient: Total time spent is greater than 50% in coordination of care (as documented) at patient's floor/unit and/or counseling patient: Coding Level of Care Code 54196 Subseq Hosp Care Lvl 2 Diagnoses COVID-19 U07.1 Diabetes E11.9 Coronary artery disease I25.10 Diastolic heart failure I50.30 Asbestosis J61 Gout M10.9 Dyslipidemia E78.5 Sleep apnea G47.30 Chronic kidney disease (CKD) N18.9 Hypertension I10
[2020-12-10] MEDS: BENZONATATE 100 MG CAPSULE PO PRN (20:55)
[2020-12-11] MEDS: ROSUVASTATIN CALCIUM 5 MG TAB PO SCH (08:17)
[2020-12-11] MEDS: POTASSIUM CHLORIDE CRTAB 20 MEQ TABCR PO SCH (08:18)
[2020-12-11] MEDS: ISOSORBIDE MONO EXTENDED REL 60 MG TABCR PO SCH (08:18)
[2020-12-11] MEDS: FLUoxetine HCL 20 MG CAP PO SCH (08:19)
[2020-12-11] MEDS: CHOLECALCIFEROL 1,000 UNITS 25 MCG TAB PO SCH (08:20)
[2020-12-11] MEDS: FERROUS SULFATE 325 MG TAB PO SCH (08:20)
[2020-12-11] MEDS: ASPIRIN 81 MG ECTAB PO SCH (08:22)
[2020-12-11] MEDS: allopurinoL 100 MG TAB PO SCH (08:22)
[2020-12-11] MEDS: carvediloL 25 MG TAB PO SCH (08:23)
[2020-12-11] MEDS: dexAMETHasone 6 MG in SYRINGE 0 ML IV SCH (08:23)
[2020-12-11] MEDS ORDERED: FUROSEMIDE 40 MG TAB PO SCH (09:00)
[2020-12-11] MEDS: INSULIN ASPART 100 UNITS/ML 3 ML PEN SC SCH ×2 (10:25→12:59)
[2020-12-11] MEDS: ENOXAPARIN INJ 40 MG/0.4 ML SYR SQ SCH (10:26)
[2020-12-11] MEDS: INSULIN GLARGINE SOLOSTAR 100 UNITS/ML 3 ML PEN SC SCH (10:27)
[2020-12-11 12:18] LABS: Hematocrit (blood only) 36.2 % (42-52); Hemoglobin 12.6 g/dL (14.0-18.0); Mean Corpuscular Hemoglobin 29.5 pg (25-34); Mean Corpuscular Hgb Conc 34.8 g/dL (32-36); Mean Corpuscular Volume 84.8 fL (80-100); Mean Platelet Volume 10.4 fL (7.4-10.4); Platelet Count 243 K/uL (130-400); RDW Coefficient of Variation 12.6 % (11.5-14.5); RDW Standard Deviation 38.9 fL (36.4-46.3); Red Blood Count 4.27 M/uL (4.7-6.1); White Blood Count 5.66 K/uL (4.8-10.8)
[2020-12-11 12:38] LABS: BUN Creatinine Ratio 23.7 (10-20); C Reactive Protein 6.59 mg/dl (0-0.29); Calcium 8.4 mg/dl (8.5-10.1); Creatinine Clr Calc Pharmacy 42.6 ml/min; Est GFR (African American) 42.5 ml/min; Est GFR (Non-African American) 36.7 ml/min
[2020-12-11 12:51] LABS: Beta-Hydroxybutyrate 1.33 mg/dl (0.2-2.81)
[2020-12-11] MEDS ORDERED: INSULIN HUMAN REGULAR PER UNIT 10 UNITS in SYRINGE 9.9 ML IV ONE (13:30)
--- NOTE | 2020-12-11 14:54 | Discharge Summary ---
Date of Service December 11, 2020 Admission HPI Per Admitting Provider Mr. Magdiel Ceron is a pleasant 65yo C male with multiple medical comorbidities to include DM, CAD, CKD presenting with Covid-19 infection and hypoxia. Patient reports symptoms began appx 11 days ago with a persistent dry cough. He has had some shortness of breath as well as some chest tightness, diarrhea and alteration in taste sensation. He is fully vaccinated against Covid-19 having received his second Pfizer vaccine in March 2020. No additional complaints at this time. Saturations upon arrival 87% on room air. ER Course: Dexamethasone 8mg IV, NSS x 1L Principal Diagnosis COVID 19 pneumonia with hypoxia Discharge Exam General: well developed, well nourished, no acute distress, comfortable Neck: supple, trachea midline, normal thyroid Lungs: clear to auscultation bilaterally, normal respiratory effort, no accessory muscle use, no distress Heart: regular S1 and S2, no murmur, peripheral pulses normal, capillary refill normal, no edema Abdomen: soft, NT, ND, + BS, no hepatomegaly, normal to percussion Extremities: normal in appearance, no cyanosis, no petechiae, strength is 5/5 bilaterally Neuro: awake, cooperative, moves all extremities, no focal motor deficits, CN II-XII intact, sensation in extremities intact, normal speech Skin: warm, dry, no rash, normal turgor Psych: Awake, alert oriented x 3, euthymic affect Discharge Data Allergies Allergy/AdvReac Type Severity Reaction Status Date / Time ketorolac [From Toradol] Allergy Severe kidney Verified 12/09/20 17:52 failure NSAIDS (Non-Steroidal Allergy Unknown Unknown Verified 12/09/20 17:52 Anti-Inflamma Luoxbwe-Bsw-Tci Reductase AdvReac Intermediate Muscle pain Verified 12/09/20 17:52 Inhibitor Consultations 12/09/20 18:16 ED Decision to Admit Stat 12/09/20 18:29 ED Decision to Admit Stat Hospital Course (1) COVID-19: 65yo male presenting with Covid-19 pneumonia, hypoxia. Patient is fully vaccinated with Pfizer vaccine. 87% on room air on arrival. Labs with leukopenia, lymphopenia, mild hyponatremia. -Dexamethasone 6mg IV daily, day 3 discharge on dexamethasone 6mg PO daily x 7 more days -Lovenox 40mg BID while admitted, does not need prophylaxis on discharge down to room air at rest, needs 2L on exertion with his 2 step home oxygen arranged discussed that he NEEDS to monitor his oxygen at home with finger pulse oximeter if oxygen is 88% or below at rest on room air then he should come to the hospital, he understands (2) Hypoxia: required 3L at most while here down to room air at rest, needs 2L on exertion no distress at all, minimal cough will monitor oxygen at home (3) Diabetes: Patient with DM. He is presently on Novolin 70/30 70units BID. Last Hgb AIC = 8.5 on 05/29/10. Presently not on Obey-inhibitor due to CKD sugars high today, > 400, gave regular insulin 10 units IV in addition to his Novolog he was on Lantus 30 units BID on admission d/w pharmacy, will plan to resume 70/30 insulin at home but will instruct him to take 100 units in the morning and 30 units at night the extra dosing in morning should help with hyperglycemia from the oral dexamethasone follow low carb diet (4) Coronary artery disease: Chronic. Cardiac catheterization 11/2015 with mild CAD. Patient does endorse some chest tightness with Covid. EKG with no acute ischemic changes. Troponin negative -Continue Aspirin -Continue Carvedilol -Continue Crestor (5) Diastolic heart failure: Patient with history of NICM, prior EF 60-65% per echo May 2019, severe LVH with Type I diastolic dysfunction. Patient appears to be euvolemic. -Continue Isosorbide -Continue Carvedilol -Continue Lasix 40mg po BID to promote negative fluid balance with COVID infection (6) Asbestosis: Patient with possible ILD from asbestosis - previously worked at [employer]. Patient was seen by Pulmonary in the past - did not have pleural plaques. Possible ILD (7) Gout: Chronic -Continue Allopurinol (8) Dyslipidemia: Chronic -Continue Crestor (9) Sleep apnea: Patient with positive sleep study obtained at [facility]. He does not wear CPAP (10) Chronic kidney disease (CKD): Cr is 1.8 which is baseline Cr remained stable for three days (11) Hypertension: Blood pressure elevated -Continue home medications -Continue to monitor F/E/N - eating well Ppx - Lovenox 40mg BID Code - DNR/DNI per discussion with ER Dispo - discharge to home with oxygen, 2L on exertion Total Time Total Time Spent Total Time Spent (In Minutes): 35 Total Time Includes: Examination of the Patient, Discharge Planning and Medication Reconciliation Discharge Plan Discharge Items Patient Disposition: Home - Self-Care Reason For Visit: COVID-19, HYPOXIA Discharge Diagnosis: COVID 19 pneumonia Hypoxic respiratory failure Diabetes with hyperglycemia Condition on Discharge: Good Goals: complete course of dexamethasone control sugar with increased dose of 70/30 in the morning Activity: Resume your previous activity Driving/Machine Use: Resume 3 days after discharge Weightbearing: Full weightbearing Non-emergency contact: Primary Care Provider Call non-emergency contact if: you have any medication questions and your symptoms worsen Follow-up/Referrals: Narciso Loo MD [Primary Care Provider] - (one week) Diet: Carb Consistent or DM2 and Heart Healthy Addtl Attending Provider Instructions: Medications: - DEXAMETHASONE: 6mg daily for 7 more days - INSULIN 70/30: starting tonight, I want you to take 30 units at night and 100 units in the morning, this is to account for the dexamethasone you will take in the morning after 7 days you should return to taking 70 units in the morning and night - TESSALON and CODEINE: take as needed for cough COVID 19 pneumonia, mild symptoms, likely blunted by the vaccine you received currently you are stable on room air at rest, need 2L of oxygen on exertion arranged for home oxygen, make sure you use it on exertion obtain a finger pulse oximeter and check oxygen periodically or if you feel more short of breath if saturations are below 88% on room air then you should come back to the emergency room Diabetes: as above, I recommend adjusting your Novolin 70/30 insulin for the next 7 days you should take 100 units in the morning and 30 units at night start by taking 30 units tonight go back to 70 twice a day the day after your last dexamethasone dose follow up with Dr. Loo in a week to see how you are doing Pending Studies at Discharge: No Stand-Alone Forms: My [employer], Smoking Cessation Medications and DC Order Prescriptions: New dexamethasone 4 mg tablet 6 mg PO DAILY 7 Days Qty: 11 RF: 0 benzonatate [Tessalon Perles] 100 mg Capsule 100 mg PO TID PRN (Reason: cough) 7 Days Qty: 21 RF: 0 codeine-guaifenesin [Guaifenesin AC] 10-100 mg/5 mL liquid 5 ml PO Q6H PRN (Reason: cough) Qty: 120 RF: 0 Continued ferrous sulfate 325 mg (65 mg iron) tablet 325 mg PO DAILY Qty: 90 RF: 3 carvedilol 25 mg tablet 25 mg PO BID Qty: 60 RF: 5 calcitriol 0.25 mcg capsule 0.25 mcg PO MONWEDFRI Qty: 36 RF: 3 rosuvastatin 5 mg tablet 5 mg PO DAILY Qty: 30 RF: 5 allopurinol 100 mg tablet 200 mg PO BID Qty: 360 RF: 3 hydralazine 25 mg tablet 25 mg PO BID Qty: 180 RF: 3 Hold Instructions: low BP fluoxetine 40 mg capsule 40 mg PO DAILY Qty: 30 RF: 11 cholecalciferol (vitamin D3) 25 mcg (1,000 unit) capsule 25 mcg PO DAILY Qty: 90 RF: 3 potassium chloride 20 mEq tablet extended release 20 meq PO .COMPLEX Qty: 180 RF: 3 isosorbide mononitrate 60 mg tablet extended release 24 hr 60 mg PO QAM Qty: 90 RF: 1 Novolin 70/30 U-100 Insulin 100 unit/mL (70-30) suspension See Rx Instructions SQ DAILY Qty: 50 RF: 5 metolazone 5 mg tablet 5 mg PO DIRECTED PRN (Reason: weight gain) Qty: 20 RF: 1 Hold Instructions: Home Medication placed on hold at Doctor's office aspirin [Aspir-81] 81 mg Tablet,Delayed Release (Dr/Ec) 81 mg PO QAM RF: 0 cyclobenzaprine 5 mg tablet See Rx Instructions .ROUTE .COMPLEX PRN (Reason: muscle spasm) Qty: 20 RF: 0 furosemide 40 mg tablet 40 mg PO BID RF: 0 Discharge Orders: Discharge Order (Routine); Ordered 12/11/20 Ordered By: Rhys Nj Admission Data Admit Date/Time: 12/09/20 19:01 Attending Provider: Rhys Nj Admit Provider: Halley Lowery Primary Care Provider: Narciso Loo Other Providers: Halley Lowery Other Interventions: Discharge Summary Assessment (RN) Last Done: 12/11/20 15:19 Coding Level of Care Code D/C DAY MANAGEMENT >30 MINS Diagnoses COVID-19 U07.1 Diabetes E11.9 Coronary artery disease I25.10 Diastolic heart failure I50.30 Asbestosis J61 Gout M10.9 Dyslipidemia E78.5 Sleep apnea G47.30 Chronic kidney disease (CKD) N18.9 Hypertension I10 Hypoxia R09.02
== END 2020-12-11 16:30 | disposition home or self-care (01) ==
LOC: ED 14:06 → 2S 19:01 → SUATTDRO 19:01 → INTOOBSV 19:01 → 2S 20:48

== ENCOUNTER 2022-06-27 10:40 | Observation (INO) ==
[2022-06-27 12:02] LABS: Basophils # (auto) 0.01 K/uL (0-0.2); Basophils % (auto) 0.2 %; Eosinophils # (auto) 0.11 K/uL (0-0.50); Eosinophils % (auto) 1.9 %; Hematocrit (blood only) 45.1 % (42.0-52.0); Hemoglobin 16.2 g/dl (14.0-18.0); Immature Granulocytes # (auto) 0.01 K/uL (0.01-0.20); Immature Granulocytes % (auto) 0.2 %; Lymphocytes # (auto) 1.12 K/uL (1.2-3.4); Lymphocytes % (auto) 19.5 %; Mean Corpuscular Hemoglobin 28.8 pg (25.0-34.0); Mean Corpuscular Hgb Conc 35.9 g/dL (32.0-36.0); Mean Corpuscular Volume 80.1 fL (80.0-100.0); Mean Platelet Volume 9.6 fL (9.4-12.4); Monocytes # (auto) 0.48 K/uL (0.11-0.59); Monocytes % (auto) 8.4 %; Neutrophils % (auto) 69.8 %; Platelet Count 173 K/uL (130-400); RDW Coefficient of Variation 14.4 % (11.5-14.5); RDW Standard Deviation 40.4 fL (36.4-46.3); Red Blood Count 5.63 M/uL (4.70-6.10); White Blood Count 5.73 K/ul (4.8-10.8)
[2022-06-27 12:12] LABS: Partial Thromboplastin Time 28.7 Seconds (21.0-31.0); Prothrombin Time 10.6 Seconds (9.0-12.0)
--- NOTE | 2022-06-27 12:19 | Electrocardiogram Report ---
Test Reason : Blood Pressure : / mmHG Vent. Rate : 071 BPM Atrial Rate : 071 BPM P-R Int : 178 ms QRS Dur : 114 ms QT Int : 400 ms P-R-T Axes : 049 086 061 degrees QTc Int : 434 ms Normal sinus rhythm Incomplete right bundle branch block Borderline ECG When compared with ECG of 25-MAR-2022 06:02, No significant change was found Confirmed by Davon Gonzalez ([id number]) on 06/27/2022 12:18:54 PM Referred By: Confirmed By:Davon Gonzalez
[2022-06-27 12:27] LABS: Troponin I High Sensitivity 4.9 pg/ml (0-20)
[2022-06-27 12:27] LABS: Appearance Urine Clear (Clear); Bacteria Urine Automated Negative (Negative); Bilirubin Urine Negative (Negative); Blood Urine Negative (Negative); Cast Urine Automated 0 /lpf (0-5); Color Urine Yellow; Epithelial Cell Urine Auto 0-5 /lpf (0-5); Glucose Urine UA 3+ (Negative); Ketones Urine Negative (Negative); Leukocyte Esterase Urine Negative (Negative); Nitrite Urine Negative (Negative); Protein Urine 1+ (Negative); RBC Urine Automated 0-4 /hpf (0-4); Specific Gravity Urine 1.027 (1.000-1.030); Urobilinogen Urine Negative (Negative); WBC Urine Automated 0 /hpf (0-5); pH Urine 5.5 (4.5-7.5)
[2022-06-27 12:30] LABS: Albumin Level 4.4 gm/dl (3.4-5.0); Bilirubin,Total 1.7 mg/dl (0.2-1.0); Calcium 9.3 mg/dl (8.6-10.3); Potassium 3.8 mmol/L (3.5-5.1)
[2022-06-27 12:51] LABS: Albumin Globulin Ratio 1.4 (0.9-2); BUN Creatinine Ratio 13.7 (10-20); Creatinine Clr Calc Pharmacy 41.2 ml/min; Est GFR (African American) 44.2 ml/min; Est GFR (Non-African American) 38.1 ml/min; Globulin 3.2 gm/dl (2.5-4.0); Total Protein 7.6 gm/dl (6.0-8.3)
--- NOTE | 2022-06-27 13:01 | Emergency Department Note ---
Impression & Plan GUTIERREZ (dyspnea on exertion), Chest pain, CKD (chronic kidney disease), Hyperglycemia, Hyponatremia ED Provider Note ED Provider Note NAME: PRAMOD DELCID AGE:67 SEX: Male : 1955 ARRIVES VIA: Private vehicle INFORMANT: Patient ED PROVIDER(s): Julia Carter DO CHIEF COMPLAINT: Dyspnea on exertion, chest pain HPI: This is a 67-year-old male presents due to concerns for dyspnea on exertion and accompanying chest tightness which have been evolving over the course of the last month. Patient does have a history of congestive heart failure and follows with cardiology. He states he has not had any weight gain or increased leg swelling. at bedside noticed that he is actually lost weight. Patient denies any recent URI symptoms. He has had some subjective fevers or chills but has not measured his temperature. He states the faster he tries to go with any activity or walking the more quickly he feels winded and develops chest tightness. Patient states he is still taking his Lasix daily as prescribed. No other recent medication changes. Patient states he has not had an echo in several years. Patient states the chest discomfort he develops is mostly just to the right of midline and he is concerned about a blockage as he was previously told on a cardiac catheterization he had a 45% blockage of his right coronary artery. PAST MEDICAL HISTORY:See Below PAST SURGICAL HISTORY:See Below FAMILY HISTORY:See Below SOCIAL HISTORY:See Below HOME MEDICATIONS:See Below ALLERGIES:See Below VITALS:See Below PHYSICAL EXAMINATION: GENERAL: alert, well appearing, well nourished, no distress, non-toxic EYE EXAM: normal conjunctiva, PERRL and EOM's grossly intact OROPHARYNX: no exudate, no erythema, lips, buccal mucosa, and tongue normal and mucous membranes are moist NECK: supple, no nuchal rigidity, no adenopathy, non-tender LUNGS: Clear to auscultation. Normal chest wall mechanics, no w/r/r HEART: no murmurs, S1 normal and S2 normal ABDOMEN: abdomen soft, non-tender, normo-active bowel sounds, no masses, no rebound or guarding. BACK: Back is symmetrical on inspection and there is no deformity, no midline tenderness, no CVA tenderness. SKIN: no rashes, petechiae, orbruising UPPER EXTREMITIES: upper extremities are grossly normal. FROM, nml pulses b/l. LOWER EXTREMITIES: No pitting edema. FROM, nml pulses b/l. NEURO EXAM: Normal sensorium, cranial nerves II-XII grossly intact, normal speech, no facial droop,nogross weakness of arms, no gross weakness of legs. Gross sensation intact. No ataxia. Vital Signs: reviewed and remarkable Differential Diagnosis: Differential diagnoses includes but is not limited to pneumonia, bronchitis, COPD/Asthma exacerbation, pneumothorax, pulmonary embolism, congestive heart failure, acute coronary syndrome MEDICAL DECISION MAKING: This is a 67-year-old male presents emergency department due to concern for increasing chest discomfort and shortness of breath with exertion. Patient does have significant cardiac history. He was afebrile and vital signs stable on arrival, no hypoxia or increased distress noted at rest. Labs drawn and sent, IV established, EKG and chest x-ray performed and interpreted by me at bedside and patient placed on telemetry. Patient's labs and imaging here are reassuring, no acute EKG changes noted. I did call and discussed the case with cardiology given his significant history and worsening symptoms over the last several days. Initial plan was to perform close outpatient follow-up stress testing and cardiology evaluation, however after patient failed ambulatory pulse ox trial and had significantly increased work of breathing and tachypnea despite only dropping to 90%, decision made to pursue additional inpatient evaluation and management. Case discussed with [facility] hospitalist team. Consultation(s): 1322: Discussed with Dr. Gonzalez. Recommends outpatient dobutamine stress test and follow-up with Dr. Pryor. Recommends additional nitro to keep at home and use as needed. 1450: Discussed with Dr. Kirk for admission. ER Treatment Provided: See below 1420: Ambulatory pulse ox here, no overt hypoxia however markedly increased work of breathing and tachypnea noted. Diagnostics Interpreted By Me: -ECG: Normal sinus at 71, normal axis, normal intervals, no acute ST/T wave changes -Cardiac Monitoring: An order was placed for continuous cardiac monitoring. The monitor shows a rate of 78 with normal sinus rhythm. -Laboratory studies: As stated above and show below. -Imaging studies: X-ray Chest: A single view study of the chest was reviewed and was negative for cardiomegaly, focal infiltrate, effusion, pulmonary edema, or wide mediastinum. Triage Nursing Note Reviewed Prior/Outside Records Reviewed -prior cardiology records reviewed Past Med/Surg History Medical History Acute renal failure Diabetic nephropathy associated with type 2 diabetes mellitus Diverticular disease Fatty liver Glaucoma NO MEDICATIONS. "PRE-GLAUMCOMA" Gout Pancreatitis H/O Pulmonary nodules Surgical History Fusion of spine C4-7 ACDF H/O cervical spine surgery H/O elbow surgery LEFT History of cardiac cath NO STENTS. FOLLOWS WITH DR. PRYOR. History of colonoscopy History of esophagogastroduodenoscopy (EGD) History of tonsillectomy S/P Achilles tendon repair LEFT S/P wrist surgery Family History Grandmother Family history of diabetes mellitus Uncle Family history of diabetes mellitus Father COPD (chronic obstructive pulmonary disease) Lung disease Mother Hypertension Aunt Colorectal cancer Denies family history of Ovarian cancer Prostate cancer Myocardial infarction Breast cancer Social History Smoking Status: Former smoker Tobacco Type: Cigars Cigarettes Per Day: Rare cigar smoker, ~1x month; Second Hand Exposure: No; Hx Alcohol Use: No Hx Substance Use: No Preferred Language: Gibralt[place] Communication Ability: Effective Visual Impairment: No Limitations Hearing Ability: Hard of Hearing [employer]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 Beliefs That Will Affect Care: None marital status: Current Living Situation: Spouse current occupational status: employed and disabled 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 [employer] Feels Safe at Home: Yes Childhood Exposure to Second-Hand Smoke: Yes caffeine: Yes (very rare) during the past year weight has: remained stable Dental Care, Regularly: No Physical Activity Frequency: Does not Exercise Seatbelt Use: always Sunscreen Use: No Assistive Devices: Glasses Allergies Allergies Allergy/AdvReac Type Severity Reaction Status Date / Time ketorolac [From Toradol] Allergy Severe kidney Verified 06/27/22 15:09 failure NSAIDS (Non-Steroidal Allergy Unknown Unknown Verified 06/27/22 15:09 Anti-Inflamma Rpjwjwu-UCU-UdK Reductase AdvReac Intermediate Muscle pain Verified 06/27/22 15:09 Inhibitor [K[place]paah-Ika-Azn Reductase Inhibitor] Home Meds Home Medications Medication Instructions Recorded Confirmed cholecalciferol (vitamin D3) 25 25 mcg PO QAM 06/19/21 06/27/22 mcg (1,000 unit) capsule insulin human U-100 NPH-regulr 0 unit subcut DIRECTED PRN BSG 06/27/22 06/27/22 70-30 mix 100 unit/mL subcutaneous CONTROL susp (Novolin 70/30 U-100 Insulin) Previous Rx's Medication Instructions Recorded allopurinol 100 mg tablet 200 mg PO BID #360 tabs 06/23/20 hydralazine 25 mg tablet 25 mg PO BID #180 tabs 08/24/20 ondansetron 4 mg disintegrating 4 mg PO Q8H PRN nausea and 06/18/21 tablet vomiting #30 tabs insulin syringe-needle U-100 0.3 #200 ea 07/01/21 mL 31 gauge x 5/16" (BD Insulin Syringe Ultra-Fine) ferrous sulfate 325 mg (65 mg 325 mg PO QAM #30 tabs 10/17/21 iron) tablet furosemide 40 mg tablet 40 mg PO BID #60 tabs 10/17/21 isosorbide mononitrate 60 mg 60 mg PO QAM #90 tabs 11/17/21 tablet,extended release 24 hr metolazone 5 mg tablet 5 mg PO DIRECTED PRN weight 12/19/21 gain #20 tabs potassium chloride 20 mEq 20 - 40 meq PO AMPM #270 tabs 01/20/22 tablet,extended release rosuvastatin 5 mg tablet 5 mg PO QAM #100 tabs 03/06/22 OneTouch Verio test strips (blood #300 ea 04/25/22 sugar diagnostic) blood-glucose meter (OneTouch #1 ea 04/25/22 Verio Flex Meter) lancets 30 gauge (OneTouch Delica #300 ea 04/25/22 Lancets) losartan 25 mg tablet 25 mg PO DAILY #90 tabs 05/04/22 dapagliflozin 10 mg tablet 10 mg PO DAILY #30 tabs 05/08/22 ([facility]) carvedilol 25 mg tablet 25 mg PO BID #60 tabs 06/08/22 fluoxetine 40 mg capsule 40 mg PO QAM #30 caps 06/08/22 carvedilol 12.5 mg tablet 12.5 mg PO BID #60 tabs 06/28/22 hydralazine 50 mg tablet 50 mg PO BID #60 tabs 06/28/22 nitroglycerin 0.4 mg sublingual 0.4 mg sublingual Q5M PRN chest 06/28/22 tablet pain #25 tabs Results & Data (ED) Vital Signs Vital Signs - 24 hr 06/27/22 10:48 06/27/22 12:15 06/27/22 12:15 Temperature 36.9 C Temperature Source Temporal Artery Scan Pulse Rate 72 72 Pulse Rate [Apical] 73 Respiratory Rate 20 16 Respiratory Effort / Characteristics Non-Labored Spontaneous Respiratory Depth Normal Blood Pressure 158/91 H Blood Pressure [Left Arm] 141/83 H Blood Pressure Mean 113 Blood Pressure Mean [Left Arm] 102 Pulse Oximetry 97 98 98 Oxygen Delivery Method Room Air Sepsis Recent Fever Within 48 Hours No Sepsis New/Unexplained Change in Mental Status No Sepsis Action Taken by Nursing No Action Required 06/27/22 12:25 Temperature Temperature Source Pulse Rate 75 Pulse Rate [Apical] Respiratory Rate Respiratory Effort / Characteristics Respiratory Depth Blood Pressure Blood Pressure [Left Arm] Blood Pressure Mean Blood Pressure Mean [Left Arm] Pulse Oximetry Oxygen Delivery Method Sepsis Recent Fever Within 48 Hours Sepsis New/Unexplained Change in Mental Status Sepsis Action Taken by Nursing Laboratory Data 06/27/22 11:29 06/27/22 11:29 Lab Results 06/27/22 06/27/22 06/27/22 Range/Units 11:19 11:29 11:29 WBC 5.73 (4.8-10.8) K/ul RBC 5.63 (4.70-6.10) M/uL Hgb 16.2 (14.0-18.0) g/dl Hct 45.1 (42.0-52.0) % MCV 80.1 (80.0-100.0) fL MCH 28.8 (25.0-34.0) pg MCHC 35.9 (32.0-36.0) g/dL RDW Std Deviation 40.4 (36.4-46.3) fL RDW Coeff of Junito 14.4 (11.5-14.5) % Plt Count 173 (130-400) K/uL MPV 9.6 (9.4-12.4) fL Immature Gran % (Auto) 0.2 % Neut % (Auto) 69.8 % Lymph % (Auto) 19.5 % [place] % (Auto) 8.4 % Eos % (Auto) 1.9 % Baso % (Auto) 0.2 % Neut # (Auto) 4.00 (1.40-6.50) K/uL Lymph # (Auto) 1.12 L (1.2-3.4) K/uL [place] # (Auto) 0.48 (0.11-0.59) K/uL Eos # (Auto) 0.11 (0-0.50) K/uL Baso # (Auto) 0.01 (0-0.2) K/uL Immature Gran # (Auto) 0.01 (0.01-0.20) K/uL PT 10.6 (9.0-12.0) Seconds INR 1.0 (0.9-1.1) APTT 28.7 (21.0-31.0) Seconds PTT Ratio 1.0 Sodium (136-145) mmol/L Potassium (3.5-5.1) mmol/L Chloride (98-107) mmol/L Carbon Dioxide (21-32) mmol/L Anion Gap (3-11) BUN (6-23) mg/dl Creatinine (0.6-1.4) mg/dl Est Cr Clr Drug Dosing ml/min Est GFR ( Amer) ml/min Est GFR (Non-Af Amer) ml/min BUN/Creatinine Ratio (10-20) Glucose (70-99(Fasting)) mg/dl Calcium (8.6-10.3) mg/dl Total Bilirubin (0.2-1.0) mg/dl AST (13-39) U/L ALT (7-52) U/L Alkaline Phosphatase (34-104) U/L Troponin I High Sens (0-20) pg/ml B-Natriuretic Peptide (0-100) pg/ml Total Protein (6.0-8.3) gm/dl Albumin (3.4-5.0) gm/dl Globulin (2.5-4.0) gm/dl Albumin/Globulin Ratio (0.9-2) Urine Color Yellow Urine Appearance Clear (Clear) Urine pH 5.5 (4.5-7.5) Ur Specific [place] 1.027 (1.000-1.030) Urine Protein 1+ H (Negative) Urine Glucose (UA) 3+ H (Negative) Urine Ketones Negative (Negative) Urine Blood Negative (Negative) Urine Nitrite Negative (Negative) Urine Bilirubin Negative (Negative) Urine Urobilinogen Negative (Negative) Ur Leukocyte Esterase Negative (Negative) Urine WBC (Auto) 0 (0-5) /hpf Urine RBC (Auto) 0-4 (0-4) /hpf U Hyaline Cast (Auto) 0 (0-5) /lpf U Epithel Cells (Auto) 0-5 (0-5) /lpf Urine Bacteria (Auto) Negative (Negative) SARS-CoV-2 (PCR) (Negative) Influenza Type A (PCR) (Neg) Influenza Type B (PCR) (Neg) RSV (RT-PCR) (Neg) 06/27/22 06/27/22 06/27/22 Range/Units 11:29 11:29 13:24 WBC (4.8-10.8) K/ul RBC (4.70-6.10) M/uL Hgb (14.0-18.0) g/dl Hct (42.0-52.0) % MCV (80.0-100.0) fL MCH (25.0-34.0) pg MCHC (32.0-36.0) g/dL RDW Std Deviation (36.4-46.3) fL RDW Coeff of [place] (11.5-14.5) % Plt Count (130-400) K/uL MPV (9.4-12.4) fL Immature Gran % (Auto) % Neut % (Auto) % Lymph % (Auto) % [place] % (Auto) % Eos % (Auto) % Baso % (Auto) % Neut # (Auto) (1.40-6.50) K/uL Lymph # (Auto) (1.2-3.4) K/uL [place] # (Auto) (0.11-0.59) K/uL Eos # (Auto) (0-0.50) K/uL Baso # (Auto) (0-0.2) K/uL Immature Gran # (Auto) (0.01-0.20) K/uL PT (9.0-12.0) Seconds INR (0.9-1.1) APTT (21.0-31.0) Seconds PTT Ratio Sodium 132 L (136-145) mmol/L Potassium 3.8 (3.5-5.1) mmol/L Chloride 98 (98-107) mmol/L Carbon Dioxide 24 (21-32) mmol/L Anion Gap 10 (3-11) BUN 25 H (6-23) mg/dl Creatinine 1.82 H (0.6-1.4) mg/dl Est Cr Clr Drug Dosing 41.2 ml/min Est GFR ( Amer) 44.2 ml/min Est GFR (Non-Af Amer) 38.1 ml/min BUN/Creatinine Ratio 13.7 (10-20) Glucose 310 H* (70-99(Fasting)) mg/dl Calcium 9.3 (8.6-10.3) mg/dl Total Bilirubin 1.7 H (0.2-1.0) mg/dl AST 15 (13-39) U/L ALT 10 (7-52) U/L Alkaline Phosphatase 106 H (34-104) U/L Troponin I High Sens 4.9 (0-20) pg/ml B-Natriuretic Peptide 21 (0-100) pg/ml Total Protein 7.6 (6.0-8.3) gm/dl Albumin 4.4 (3.4-5.0) gm/dl Globulin 3.2 (2.5-4.0) gm/dl Albumin/Globulin Ratio 1.4 (0.9-2) Urine Color Urine Appearance (Clear) Urine pH (4.5-7.5) Ur Specific [place] (1.000-1.030) Urine Protein (Negative) Urine Glucose (UA) (Negative) Urine Ketones (Negative) Urine Blood (Negative) Urine Nitrite (Negative) Urine Bilirubin (Negative) Urine Urobilinogen (Negative) Ur Leukocyte Esterase (Negative) Urine WBC (Auto) (0-5) /hpf Urine RBC (Auto) (0-4) /hpf U Hyaline Cast (Auto) (0-5) /lpf U Epithel Cells (Auto) (0-5) /lpf Urine Bacteria (Auto) (Negative) SARS-CoV-2 (PCR) NEGATIVE (Negative) Influenza Type A (PCR) Negative (Neg) Influenza Type B (PCR) Negative (Neg) RSV (RT-PCR) Negative (Neg) Administered Medications Allopurinol (Allopurinol 100 Mg Tab) 200 mg PO BID ANGEL Stop: 07/27/22 20:59 Last Admin: 06/28/22 08:30 Dose: 200 mg Documented By: Admin: 06/27/22 21:20 Dose: 200 mg Documented By: KRUPA Fluoxetine HCl (Fluoxetine Hcl 20 Mg Cap) 40 mg PO QAM ANGEL Stop: 07/28/22 08:59 Last Admin: 06/28/22 08:31 Dose: 40 mg Documented By: JEFFERSON Furosemide (Furosemide 40 Mg Tab) 40 mg PO BID ANGEL Stop: 07/28/22 08:59 Last Admin: 06/28/22 10:58 Dose: 40 mg Documented By: JEFFERSON Heparin Sodium (Porcine) (Heparin Sod 5,000 Unit/0.5 Ml Vial) 5,000 units SQ Q12 [facility] Stop: 07/27/22 20:59 Last Admin: 06/28/22 08:33 Dose: 5,000 units Documented By: Admin: 06/27/22 21:22 Dose: Not Given Documented By: KRUPA Insulin Aspart (Insulin Aspart Per Unit Charge) 0 units SC ACHS [facility] Stop: 07/27/22 16:29 Last Admin: 06/28/22 11:50 Dose: 3 units Documented By: JEFFERSON Co-signed By: FAHAD Admin: 06/28/22 08:34 Dose: Not Given Documented By: JEFFERSON Co-signed By: CAROLANN Admin: 06/27/22 21:19 Dose: 4 units Documented By: KRUPA Co-signed By: SILAS Admin: 06/27/22 18:34 Dose: 2 units Documented By: LENA Co-signed By: YAMILETH Insulin Glargine (Lantus Per Unit Charge) 8 units SQ BID [facility] Stop: 07/27/22 20:59 Last Admin: 06/28/22 08:38 Dose: 8 units Documented By: JEFFERSON Co-signed By: CAROLANN Admin: 06/27/22 21:19 Dose: 8 units Documented By: KRUPA Co-signed By: SILAS Isosorbide Mononitrate (Isosorbide [place] Extended Rel 60 Mg Tabcr) 60 mg PO QAM [facility] Stop: 07/28/22 08:59 Last Admin: 06/28/22 08:31 Dose: 60 mg Documented By: JEFFERSON Losartan Potassium (Losartan Potassium 25 Mg Tab) 25 mg PO DAILY [facility] Stop: 07/28/22 08:59 Last Admin: 06/28/22 08:31 Dose: 25 mg Documented By: JEFFERSON Rosuvastatin Calcium (Rosuvastatin Calcium 5 Mg Tab) 5 mg PO QAM ANGEL Stop: 07/28/22 08:59 Last Admin: 06/28/22 08:31 Dose: 5 mg Documented By: CAM Discontinued Medications Atropine Sulfate (Atropine Sulfate 0.1 Mg/Ml 10ml Syr) Confirm Administered Dose 2 mg IV .STK-MED ONE Stop: 06/28/22 09:26 Last Admin: 06/28/22 11:07 Dose: 1.25 mg Documented By: RANJEET Carvedilol (Carvedilol 25 Mg Tab) 25 mg PO BID ANGEL Stop: 07/27/22 20:59 Last Admin: 06/28/22 08:30 Dose: 25 mg Documented By: Admin: 06/27/22 21:21 Dose: 25 mg Documented By: KRUPA Carvedilol (Carvedilol 25 Mg Tab) 25 mg PO NOW ONE Stop: 06/27/22 15:29 Last Admin: 06/27/22 16:06 Dose: 25 mg Documented By: LENA Dobutamine HCl (Dobutamine Hcl 12.5 Mg/Ml 20 Ml Vial) Confirm Administered Dose 250 mg IV .STK-MED ONE Stop: 06/28/22 09:26 Last Admin: 06/28/22 11:08 Dose: 1 dose Documented By: RANJEET Hydralazine HCl (Hydralazine Hcl 25 Mg Tab) 25 mg PO BID ANGEL Stop: 07/27/22 20:59 Last Admin: 06/28/22 08:30 Dose: 25 mg Documented By: Admin: 06/27/22 21:21 Dose: 25 mg Documented By: KRUPA Sodium Chloride (Nss 1000ml) 250 mls @ 250 mls/hr IV .Q1H ONE Stop: 06/28/22 14:40 Last Infusion: 06/28/22 14:20 Dose: 0 mls/hr Documented By: Admin: 06/28/22 13:20 Dose: 250 mls/hr Documented By: JEFFERSON Losartan Potassium (Losartan Potassium 25 Mg Tab) 25 mg PO ONE ONE Stop: 06/27/22 15:30 Last Admin: 06/27/22 16:07 Dose: 25 mg Documented By: OL Metoprolol Tartrate (Metoprolol Tartrate 1 Mg/Ml Vial) Confirm Administered Dose 10 mg IV .STK-MED ONE Stop: 06/28/22 09:26 Last Admin: 06/28/22 11:08 Dose: 5 mg Documented By: RANJEET Nitroglycerin (Nitroglycerin Sl 0.4 Mg/Tab Tab) Confirm Administered Dose 0.4 mg .ROUTE .STK-MED ONE Stop: 06/28/22 09:27 Last Admin: 06/28/22 11:10 Dose: Not Given Documented By: RANJEET Imaging Data Radiologist's Impression: Chest X-Ray 06/27/22 10:58 XR chest 1V portable HISTORY: 67 years-old Male Chest pain, nonspecific acute chest pain COMPARISON: 03/25/2022 TECHNIQUE: AP view of the chest FINDINGS: Cardiac silhouette is enlarged. No pneumothorax, pleural effusion, airspace consolidation or pulmonary edema. Degenerative changes of the spine and right shoulder. Cervical spinal fusion hardware. Left shoulder arthroplasty. IMPRESSION: No acute process. ACT 112: Negative or not required by law. The above report was generated using voice recognition software. It may contain grammatical, syntax or spelling errors. Electronically signed by: Adam Orourke M.D. 06/27/2022 1:00 PM Discharge Plan Visit Data Chief Complaint: Shortness of Breath/Dyspnea Stated Complaint: SOB ED Provider: Julia Carter Discharge Problem: GUTIERREZ (dyspnea on exertion), Chest pain, CKD (chronic kidney disease), Hyperglycemia, Hyponatremia Patient Disposition: Admitted As Inpatient Discharge Instructions Interventions: ED Discharge Assessment Last Done: 06/27/22 19:10
--- NOTE | 2022-06-27 13:01 | XRay Report ---
XR chest 1V portable HISTORY: 67 years-old Male Chest pain, nonspecific acute chest pain COMPARISON: 03/25/2022 TECHNIQUE: AP view of the chest FINDINGS: Cardiac silhouette is enlarged. No pneumothorax, pleural effusion, airspace consolidation or pulmonar y edema. Degenerative changes of the spine and right shoulder. Cervical spinal fusion hardware. Left shoulder arthroplasty. IMPRESSION: No acute process. ACT 112: Negative or not required by law. The above report was generated using voice recognition software. It may contain grammatical, syntax o r spelling errors. Electronically signed by: Adam Orourke M.D. 06/27/2022 1:00 PM
--- NOTE | 2022-06-27 14:46 | History & Physical Report ---
Date of Service June 27, 2022 Assessment & Plan (1) Chest pain: Plan: Worsening exertional angina, No symptoms at rest, but severe exercise limitation with fatigue and worsened exercise tolerance now limiting daily function in the last month Has associated chest tightness in his right lower sternum which resolves with rest Does have a history of heart failure and is on diuretics, clinically is without edema, Rales, and chest x-ray does not show overload suggestive of acute on chronic CHF Patient has a known 45% lesion per [facility] had a cath there following an abnormal stress test but did not have any stents placed at the time Patient does have underlying CKD due to diabetic nephropathy, Baseline creatinine is around 2.0, admitting creatinine 1.8 Echo, troponin trend ordered. Patient would benefit from stress test in- house, he thinks he would be able to complete a treadmill stress test but notes last time he had this done it was quickly aborted due to abnormality. Patient is significantly more limited now by fatigue and shortness of breath which would likely impair his ability to achieve adequate protocol. Discussed with cardiology, anticipate dobutamine stress test. Initial troponin negative Admitting EKG NSR incomplete right bundle branch block similar to prior. QTc 434. No acute ST/T wave change CAD Without history Last echo with EF 60-65%, grade 1 diastolic dysfunction 05/25/2019. Limited by body habitus. BNP 21 on admit Type II DM Last A1c 9.1% Hyperglycemic of 310 on admission Weight-based basal bolus. Lantus 8 units twice daily, CF 50, carb ratio 16 BSG 310, aggressive fluids deferred due to history of diastolic heart failure and patient does not appear clinically hypovolemic. CKD 3 Baseline creatinine around 2.0, admitting creatinine 1.8 At baseline, appears euvolemic on admission Trend daily Renally dose medications Hyperlipidemia Continue statin Hepatic steatosis Suspect due to DM in the past. No transaminitis on admission, no acute intervention indicated Gout Continue allopurinol DVT prophylaxis: Heparin Diet: N.p.o. at midnight for dobutamine stress CODE STATUS: DNR/DNI Disposition: Telemetry (2) Diabetic nephropathy associated with type 2 diabetes mellitus: (3) Chronic kidney disease, stage 3b: (4) Cervical radiculopathy: History of Present Illness Primary Care Provider: Narciso Loo MD Severe SoB worsening over 1 months. 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 No leg swelling. Slight but not much shortness of breath when laying flat/orthopnea Had one episode of chest soreness in R chest a few days ago which is no longer present. Has a '45% blockage' of some blood vessel in [place]. [facility] noted. Put him on a treadmill and saw evidence of a blockage at 3-4 minutes then followed up with a cath Did not have stents placed at the time. No hx [place]. No hx Bipass. Chest pain with exertion in the R lower sternum which resolves with rest. Takes ~30 minutes for symptoms to reside No asthma. Concern for aspestosis ?COPD. Does not benefit from inhalers Takes lasix BID (80mg daily) Denies any chest pain or shortness of breath while at rest DM2 --> Last A1C 9% in system, pt reports think sthis is the last check he had Medical History: Reviewed Medications: Reviewed Surgical History: Reviewed Family history: Reviewed Allergies: Reviewed. Has had muscle sores with statins, rosuvastain. No toradol. Social History: Former intermittent cigar use no use recently. No etoh. Code Status: DNR/DNI discussed w pt Allergies Allergy/AdvReac Type Severity Reaction Status Date / Time ketorolac [From Toradol] Allergy Severe kidney Verified 06/27/22 15:09 failure NSAIDS (Non-Steroidal Allergy Unknown Unknown Verified 06/27/22 15:09 Anti-Inflamma Tchdajq-SUH-MmN Reductase AdvReac Intermediate Muscle pain Verified 06/27/22 15:09 Inhibitor [Xfsqawf-Csn-Woa Reductase Inhibitor] Home Medications Medication Instructions Recorded Confirmed Type allopurinol 100 mg tablet 200 mg PO BID #360 tabs 06/23/20 06/27/22 Rx hydralazine 25 mg tablet 25 mg PO BID #180 tabs 08/24/20 06/27/22 Rx ondansetron 4 mg disintegrating 4 mg PO Q8H PRN nausea and 06/18/21 06/27/22 Rx tablet vomiting #30 tabs cholecalciferol (vitamin D3) 25 25 mcg PO QAM 06/19/21 06/27/22 History mcg (1,000 unit) capsule insulin syringe-needle U-100 0.3 #200 ea 07/01/21 06/27/22 Rx mL 31 gauge x 5/16" (BD Insulin Syringe Ultra-Fine) ferrous sulfate 325 mg (65 mg 325 mg PO QAM #30 tabs 10/17/21 06/27/22 Rx iron) tablet furosemide 40 mg tablet 40 mg PO BID #60 tabs 10/17/21 06/27/22 Rx isosorbide mononitrate 60 mg 60 mg PO QAM #90 tabs 11/17/21 06/27/22 Rx tablet,extended release 24 hr metolazone 5 mg tablet 5 mg PO DIRECTED PRN weight 12/19/21 06/27/22 Rx gain #20 tabs potassium chloride 20 mEq 20 - 40 meq PO AMPM #270 tabs 01/20/22 06/27/22 Rx tablet,extended release rosuvastatin 5 mg tablet 5 mg PO QAM #100 tabs 03/06/22 06/27/22 Rx OneTouch Verio test strips (blood #300 ea 04/25/22 06/27/22 Rx sugar diagnostic) blood-glucose meter (OneTouch #1 ea 04/25/22 06/27/22 Rx Verio Flex Meter) lancets 30 gauge (OneTouch Delica #300 ea 04/25/22 06/27/22 Rx Lancets) losartan 25 mg tablet 25 mg PO DAILY #90 tabs 05/04/22 06/27/22 Rx dapagliflozin 10 mg tablet 10 mg PO DAILY #30 tabs 05/08/22 06/27/22 Rx (Farxiga) carvedilol 25 mg tablet 25 mg PO BID #60 tabs 06/08/22 06/27/22 Rx fluoxetine 40 mg capsule 40 mg PO QAM #30 caps 06/08/22 06/27/22 Rx insulin human U-100 NPH-regulr 0 unit subcut DIRECTED PRN BSG 06/27/22 06/27/22 History 70-30 mix 100 unit/mL subcutaneous CONTROL susp (Novolin 70/30 U-100 Insulin) Past Med/Surg History Medical History Acute renal failure Diabetic nephropathy associated with type 2 diabetes mellitus Diverticular disease Fatty liver Glaucoma Gout Pancreatitis Pulmonary nodules Surgical History Fusion of spine H/O cervical spine surgery H/O elbow surgery History of cardiac cath History of colonoscopy History of esophagogastroduodenoscopy (EGD) History of tonsillectomy S/P Achilles tendon repair S/P wrist surgery Family History Grandmother Family history of diabetes mellitus Uncle Family history of diabetes mellitus Father COPD (chronic obstructive pulmonary disease) Lung disease Mother Hypertension Aunt Colorectal cancer Denies family history of Ovarian cancer Prostate cancer Myocardial infarction Breast cancer Social History Smoking Status: Former smoker Tobacco Type: Cigars Cigarettes Per Day: Rare cigar smoker, ~1x month; Second Hand Exposure: No; Hx Alcohol Use: No Hx Substance Use: No Preferred Language: Macanese Communication Ability: Effective Visual Impairment: No Limitations Hearing Ability: Hard of Hearing [place] Rough Opener Required: No Beliefs That Will Affect Care: None marital status: Current Living Situation: Spouse current occupational status: employed and disabled 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 NAD. Cooperative. HEENT: Atraumatic, normocephalic. Vision/hearing grossly intact Pulm: CTAB A&P. -wheezes, -rales, -rhonchi. Symmetrical chest rise. No increased work of breathing. No respiratory distress. Cardiac: RRR, -mrg. Radial pulses intact and symmetrical. Abdominal: Nontender, nondistended, soft. BS present. Extremities: Warm, dry. No edema. Results & Data Results & Data Vital Signs (Past 12 Hours) Vital Signs Temp Pulse Pulse Pulse Resp Resp BP 06/27/22 13:20 77 30 H 06/27/22 12:25 75 06/27/22 12:15 72 06/27/22 12:15 73 16 06/27/22 10:48 36.9 C 72 20 158/91 H BP Pulse Ox Pulse Ox O2 Del Method 06/27/22 13:20 99 Room Air 06/27/22 12:25 06/27/22 12:15 98 06/27/22 12:15 141/83 H 98 06/27/22 10:48 97 Room Air PG Care Time/CCT Total # of Minutes Spent Total Time Spent with Patient: Total time spent is greater than 50% in coordination of care (as documented) at patient's floor/unit and/or counseling patient: Coding Level of Care Code 75207 INT INP/OBS CARE 2/55MIN Diagnoses Chest pain R07.9 Diabetic nephropathy associated with type 2 diabetes mellitus E11.21 Chronic kidney disease, stage 3b N18.32 Cervical radiculopathy M54.12
[2022-06-27] MEDS ORDERED: CARBOHYDRATES FOR HYPOGLYCEMIA PO PRN (14:56)
[2022-06-27] MEDS ORDERED: GLUCOSE 40% GEL 15 GM TUBE PO PRN (14:56)
[2022-06-27] MEDS ORDERED: GLUCAGON FOR INJ 1 MG VIAL SQ PRN (14:56)
[2022-06-27] MEDS ORDERED: DEXTROSE 50% 50 ML SYRINGE IV PRN (14:56)
[2022-06-27] MEDS ORDERED: GLUCOSE 10 TAB/TUBE PO PRN (14:56)
[2022-06-27] MEDS ORDERED: carvediloL 25 MG TAB PO ONE (15:28)
[2022-06-27 15:29] LABS: Influenza A virus by PCR Negative (Neg); Influenza B virus by PCR Negative (Neg); RSV by PCR Negative (Neg); SARS CoV2 RNA(COVID-19) Ceph NEGATIVE (Negative)
[2022-06-27] MEDS ORDERED: LOSARTAN POTASSIUM 25 MG TAB PO ONE (15:29)
[2022-06-27] MEDS: INSULIN ASPART PER UNIT CHARGE SC SCH ×2 (18:34→21:19)
[2022-06-27] MEDS ORDERED: ACETAMINOPHEN 325 MG TAB PO PRN (19:11)
[2022-06-27] MEDS: LANTUS PER UNIT CHARGE SQ SCH (21:19)
[2022-06-27] MEDS: allopurinoL 100 MG TAB PO SCH (21:20)
[2022-06-27] MEDS: hydrALAZINE HCL 25 MG TAB PO SCH (21:21)
[2022-06-27] MEDS: carvediloL 25 MG TAB PO SCH (21:21)
[2022-06-27] MEDS: HEPARIN SOD 5,000 UNIT/0.5 ML VIAL SQ SCH (21:22)
[2022-06-28 06:02] LABS: Basophils # (auto) 0.02 K/uL (0-0.2); Basophils % (auto) 0.4 %; Eosinophils # (auto) 0.14 K/uL (0-0.50); Eosinophils % (auto) 2.5 %; Hematocrit (blood only) 44.7 % (42.0-52.0); Hemoglobin 15.7 g/dl (14.0-18.0); Immature Granulocytes # (auto) 0.02 K/uL (0.01-0.20); Immature Granulocytes % (auto) 0.4 %; Lymphocytes # (auto) 1.21 K/uL (1.2-3.4); Lymphocytes % (auto) 21.6 %; Mean Corpuscular Hemoglobin 29.1 pg (25.0-34.0); Mean Corpuscular Hgb Conc 35.1 g/dL (32.0-36.0); Mean Corpuscular Volume 82.9 fL (80.0-100.0); Mean Platelet Volume 9.6 fL (9.4-12.4); Monocytes # (auto) 0.52 K/uL (0.11-0.59); Monocytes % (auto) 9.3 %; Neutrophils # (auto) 3.69 K/uL (1.40-6.50); Neutrophils % (auto) 65.8 %; Platelet Count 154 K/uL (130-400); RDW Coefficient of Variation 14.4 % (11.5-14.5); Red Blood Count 5.39 M/uL (4.70-6.10)
[2022-06-28 06:16] LABS: BUN Creatinine Ratio 13.3 (10-20); Calcium 9.2 mg/dl (8.6-10.3); Creatinine Clr Calc Pharmacy 41.3 ml/min; Est GFR (African American) 44.5 ml/min; Est GFR (Non-African American) 38.4 ml/min; Potassium 4.1 mmol/L (3.5-5.1)
[2022-06-28 08:19] LABS: Estimated Average Glucose 226 mg/dl; Hemoglobin A1C 9.5 % (4.5-5.6)
[2022-06-28] MEDS: hydrALAZINE HCL 25 MG TAB PO SCH (08:30)
[2022-06-28] MEDS: carvediloL 25 MG TAB PO SCH (08:30)
[2022-06-28] MEDS: allopurinoL 100 MG TAB PO SCH (08:30)
[2022-06-28] MEDS: HEPARIN SOD 5,000 UNIT/0.5 ML VIAL SQ SCH (08:33)
[2022-06-28] MEDS: INSULIN ASPART PER UNIT CHARGE SC SCH ×3 (08:34→17:38)
[2022-06-28] MEDS: LANTUS PER UNIT CHARGE SQ SCH (08:38)
[2022-06-28] MEDS ORDERED: FUROSEMIDE 40 MG TAB PO SCH (09:00)
[2022-06-28] MEDS ORDERED: ROSUVASTATIN CALCIUM 5 MG TAB PO SCH (09:00)
[2022-06-28] MEDS ORDERED: FLUoxetine HCL 20 MG CAP PO SCH (09:00)
[2022-06-28] MEDS ORDERED: ISOSORBIDE MONO EXTENDED REL 60 MG TABCR PO SCH (09:00)
[2022-06-28] MEDS ORDERED: LOSARTAN POTASSIUM 25 MG TAB PO SCH (09:00)
[2022-06-28] MEDS: NITROGLYCERIN SL 0.4 MG/TAB TAB ONE ×2 (10:56→11:10)
[2022-06-28] MEDS: ATROPINE SULFATE 0.1 MG/ML 10ML SYR IV ONE ×2 (10:56→11:07)
[2022-06-28] MEDS: METOPROLOL TARTRATE 1 MG/ML VIAL IV ONE ×2 (10:56→11:08)
[2022-06-28] MEDS: DOBUTamine HCL 12.5 MG/ML 20 ML VIAL IV ONE ×2 (10:56→11:08)
--- NOTE | 2022-06-28 12:00 | Discharge Summary ---
Date of Service June 28, 2022 Admission HPI Per Admitting Provider Severe SoB worsening over 1 months. 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 No leg swelling. Slight but not much shortness of breath when laying flat/orthopnea Had one episode of chest soreness in R chest a few days ago which is no longer present. Has a '45% blockage' of some blood vessel in [place]. [facility] noted. Put him on a treadmill and saw evidence of a blockage at 3-4 minutes then followed up with a cath Did not have stents placed at the time. No hx [place]. No hx Bipass. Chest pain with exertion in the R lower sternum which resolves with rest. Takes ~30 minutes for symptoms to reside No asthma. Concern for aspestosis ?COPD. Does not benefit from inhalers Takes lasix BID (80mg daily) Denies any chest pain or shortness of breath while at rest DM2 --> Last A1C 9% in system, pt reports think sthis is the last check he had Medical History: Reviewed Medications: Reviewed Surgical History: Reviewed Family history: Reviewed Allergies: Reviewed. Has had muscle sores with statins, rosuvastain. No toradol. Social History: Former intermittent cigar use no use recently. No etoh. Code Status: DNR/DNI discussed w pt Principal Diagnosis Chest pain Discharge Exam General-alert and oriented x3, no fevers, no chills HEENT-head atraumatic and normocephalic, pupils equal and reactive to light, extraocular muscles intact Neck-no lymphadenopathy or thyromegaly, trachea midline Chest-clear to auscultation percussion. No rales wheezing or rhonchi Cardiac-regular rate and rhythm, normal S1 and S2 Abdomen-normal bowel sounds, nontender, no hepatosplenomegaly Extremities-no cyanosis, clubbing, or edema Neuro-cranial nerves II through XII intact, motor and sensory function within normal limits, strength symmetrical , no focal deficits Psych-normal affect, normal mood Discharge Data Allergies Allergy/AdvReac Type Severity Reaction Status Date / Time ketorolac [From Toradol] Allergy Severe kidney Verified 06/27/22 15:09 failure NSAIDS (Non-Steroidal Allergy Unknown Unknown Verified 06/27/22 15:09 Anti-Inflamma Gdqhpma-LOD-DxS Reductase AdvReac Intermediate Muscle pain Verified 06/27/22 15:09 Inhibitor [Ggitmlx-Mvr-Srp Reductase Inhibitor] Consultations 06/27/22 14:32 ED Decision to Admit Stat 06/27/22 19:11 Consult Cardiology Routine Hospital Course (1) Chest pain: No evidence of acute coronary syndrome. Troponins are negative. Dobutamine stress test negative for ischemia. Case discussed with cardiology. Carvedilol dosage has been down titrated and hydralazine dosage has been uptitrated. Appropriate use of sublingual nitroglycerin was explained to the patient. He will be discharged home today. CAD Without history Last echo with EF 60-65%, grade 1 diastolic dysfunction 05/25/2019. Limited by body habitus. BNP 21 on admit Type II DM Last A1c 9.1% Hyperglycemic of 310 on admission Weight-based basal bolus. Lantus 8 units twice daily, CF 50, carb ratio 16 BSG 310, aggressive fluids deferred due to history of diastolic heart failure and patient does not appear clinically hypovolemic. CKD 3 Baseline creatinine around 2.0, admitting creatinine 1.8 At baseline, appears euvolemic on admission Trend daily Renally dose medications Hyperlipidemia Continue statin Hepatic steatosis Suspect due to DM in the past. No transaminitis on admission, no acute intervention indicated Gout Continue allopurinol DVT prophylaxis: Heparin Diet: N.p.o. at midnight for dobutamine stress CODE STATUS: DNR/DNI Disposition: Telemetry (2) Diabetic nephropathy associated with type 2 diabetes mellitus: Stable. ADA diet. Sliding scale coverage. Basal insulin therapy (3) Chronic kidney disease, stage 3b: Stable. Monitor intake and output. Serial labs (4) Cervical radiculopathy: Pain control measures as needed Plan Home today, June 28 after negative dobutamine stress test. No ischemia seen. Carvedilol dosage has been down titrated and hydralazine dosage uptitrated. Proper use of sublingual nitroglycerin was explained to the patient for use as needed for any chest discomfort that occurs. 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 Total Time Total Time Spent Total Time Spent (In Minutes): 40 minutes Discharge Plan Discharge Items Patient Disposition: Home - Self-Care Reason For Visit: EXERTIONAL ANGINA Discharge Diagnosis: Chest pain Activity: Resume your previous activity Non-emergency contact: Primary Care Provider Call non-emergency contact if: you have any medication questions and your symptoms worsen Follow-up/Referrals: Narciso Loo MD [Primary Care Provider] - Diet: Carb Consistent or DM2 and Heart Healthy Addtl Attending Provider Instructions: Carvedilol dosage has been decreased. Hydralazine dosage has been increased. Prescriptions have been sent to [facility] pharmacy in [place]. Use sublingual nitroglycerin as directed for any chest discomfort that occurs. See Dr. Marino Hurtado, cardiology, in the office in 2 to 4 weeks Pending Studies at Discharge: No Stand-Alone Forms: My [facility] [employer], Smoking Cessation Medications and DC Order Prescriptions: New carvedilol 12.5 mg Tablet 12.5 mg PO BID Qty: 60 0RF hydralazine 50 mg Tablet 50 mg PO BID Qty: 60 0RF nitroglycerin 0.4 mg tablet, sublingual 0.4 mg sublingual Q5M PRN (Reason: chest pain) Qty: 25 0RF Continued allopurinol 100 mg tablet 200 mg PO BID Qty: 360 3RF (DME) insulin syringe-needle U-100 [BD Insulin Syringe Ultra-Fine] 0.3 mL 31 gauge x 5/16" syringe See Rx Instructions .Route Qty: 200 3RF Rx Instructions: use to give insulin BID ferrous sulfate 325 mg (65 mg iron) tablet 325 mg PO QAM Qty: 30 11RF furosemide 40 mg tablet 40 mg PO BID Qty: 60 11RF isosorbide mononitrate 60 mg tablet extended release 24 hr 60 mg PO QAM Qty: 90 1RF metolazone 5 mg tablet 5 mg PO DIRECTED PRN (Reason: weight gain) Qty: 20 1RF Hold Instructions: Home Medication placed on hold at Doctor's office Rx Instructions: 1 tab 20 min before lasix as needed (AM weight >231 lbs). Max two tablets weekly potassium chloride 20 mEq tablet extended release 20 - 40 meq PO AMPM Qty: 270 3RF Rx Instructions: 2 tablets each morning and 1 tablet in the evening rosuvastatin 5 mg tablet 5 mg PO QAM Qty: 100 1RF (DME) blood-glucose meter [OneTouch Verio Flex meter] [facility] See Rx Instructions .Route Qty: 1 0RF Rx Instructions: test blood sugar three times a day (DME) OneTouch Verio test strips Strip See Rx Instructions .Route Qty: 300 3RF Rx Instructions: test blood sugars three times a day (DME) lancets [OneTouch Delica Lancets] 30 gauge misc See Rx Instructions .Route Qty: 300 3RF Rx Instructions: test blood sugars three times a day losartan 25 mg tablet 25 mg PO DAILY Qty: 90 3RF Farxiga 10 mg tablet 10 mg PO DAILY Qty: 30 5RF fluoxetine 40 mg capsule 40 mg PO QAM Qty: 30 5RF cholecalciferol (vitamin D3) 25 mcg (1,000 unit) capsule 25 mcg PO QAM ondansetron 4 mg tablet,disintegrating 4 mg PO Q8H PRN (Reason: nausea and vomiting) Qty: 30 0RF Novolin 70/30 U-100 Insulin 100 unit/mL (70-30) suspension 0 unit subcut DIRECTED PRN (Reason: BSG CONTROL) Rx Instructions: PER PT "ONLY TAKE IF NEEDED TO CONTROL BSG". 40-50units at bedtime; adjust according to bsgs Discontinued hydralazine 25 mg tablet 25 mg PO BID Qty: 180 3RF Hold Instructions: low BP carvedilol 25 mg tablet 25 mg PO BID Qty: 60 5RF Discharge Orders: Discharge Order (Routine); Ordered 06/28/22 Ordered By: Silas Lan Admission Data Admit Date/Time: 06/27/22 15:09 Attending Provider: Silas Lan Admit Provider: Dony Kirk Primary Care Provider: Narciso Loo Other Providers: Dony Kirk ; Davon Gonzalez Coding Level of Care Code 47441 INP/OBS DISCH >30 MIN Diagnoses Chest pain R07.9 Diabetic nephropathy associated with type 2 diabetes mellitus E11.21 Chronic kidney disease, stage 3b N18.32 Cervical radiculopathy M54.12
--- NOTE | 2022-06-28 13:00 | Cardiology Consultation ---
Date of Consultation June 28, 2022 Assessment & Plan (1) GUTIERREZ (dyspnea on exertion): (2) H/O cardiomyopathy: (3) Nonobstructive atherosclerosis of coronary artery: (4) Moderate COPD (chronic obstructive pulmonary disease): Plan 67-year-old man with resolved nonischemic cardiomyopathy (prior catheterization showed nonobstructive CAD) who has been experiencing dyspnea and pounding heartbeat with only modest exertion. Dobutamine stress echocardiogram today was reassuring in that there was no evidence of myocardial ischemia, suggesting that his coronary artery disease remains nonobstructive. He did have a blunted heart rate response to pharmacologic stress, achieving only 80% maximum predicted heart rate after peak dose dobutamine and multiple doses of atropine, suggesting some degree of blunted chronotropic response. He also has a history of moderate COPD and asbestos exposure which may play a role in his dyspneic symptoms. He is rather sedentary and does not exercise regularly. Since his recent symptoms do not appear due to myocardial ischemia but rather due to a combination of underlying pulmonary disease and deconditioning, would adjust his medications to allow a more vigorous chronotropic response to activity while encouraging him to embark on a program of incremental aerobic exercise. Recommend reducing carvedilol from 25 mg twice daily to 12.5 mg twice daily to allow a more vigorous heart rate response. Recommend increasing hydralazine from 25 mg twice daily to 50 mg twice daily given his recent hypertension and to offset the decrease in alpha blocking effect when his carvedilol dose is reduced. Follow-up with Dr. Hurtado for further medication titration. History of Present Illness Reason for Consultation: exertional angina Requesting Physician: Silas Lan MD Attending Physician: Silas Lan MD History of Present Illness 67-year-old man with resolved nonischemic cardiomyopathy (nonobstructive CAD at remote cath), moderate obstructive pulmonary disease, history of asbestos exposure, who has noted progressive dyspnea on exertion with associated "pounding heartbeat" during modest levels of activity and was admitted 06/27/2022 for further evaluation. Due to similar symptoms in 2018 he underwent a dobutamine stress echocardiogram which showed EF 55%, basal septal and inferior bedoya were hypokinetic, all bedoya augmented during stress however. Around that time, he had a right heart catheterization which showed normal cardiac output and normal PCWP, mildly elevated pulmonary artery pressure. 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 He does not routinely perform higher levels of physical activity. He denies any orthopnea, PND, leg edema, or other heart failure symptoms and actually had been losing weight. Due to progressive symptoms, he reported to the emergency department where ECG and enzymes were negative, but he felt poorly and was admitted for further evaluation. At the time of my evaluation this morning he was comfortable and had no somatic complaints. He did undergo dobutamine stress echocardiogram today, he felt a subjective sense of "heart pounding", first when his heart rate increased from 60 bpm to 80 bpm initially, then somewhat more pronounced as his heart rate reached a maximum of 125 bpm. He denied chest discomfort or dyspnea at any time. At the conclusion of the study he was asymptomatic and hemodynamically stable. Allergies Allergy/AdvReac Type Severity Reaction Status Date / Time ketorolac [From Toradol] Allergy Severe kidney Verified 06/27/22 15:09 failure NSAIDS (Non-Steroidal Allergy Unknown Unknown Verified 06/27/22 15:09 Anti-Inflamma Ewuydor-NUW-YyX Reductase AdvReac Intermediate Muscle pain Verified 06/27/22 15:09 Inhibitor [Fdmcorv-Jhe-Ukj Reductase Inhibitor] Home Medications Medication Instructions Recorded Confirmed Type allopurinol 100 mg tablet 200 mg PO BID #360 tabs 06/23/20 06/27/22 Rx hydralazine 25 mg tablet 25 mg PO BID #180 tabs 08/24/20 06/27/22 Rx ondansetron 4 mg disintegrating 4 mg PO Q8H PRN nausea and 06/18/21 06/27/22 Rx tablet vomiting #30 tabs cholecalciferol (vitamin D3) 25 25 mcg PO QAM 06/19/21 06/27/22 History mcg (1,000 unit) capsule insulin syringe-needle U-100 0.3 #200 ea 07/01/21 06/27/22 Rx mL 31 gauge x 5/16" (BD Insulin Syringe Ultra-Fine) ferrous sulfate 325 mg (65 mg 325 mg PO QAM #30 tabs 10/17/21 06/27/22 Rx iron) tablet furosemide 40 mg tablet 40 mg PO BID #60 tabs 10/17/21 06/27/22 Rx isosorbide mononitrate 60 mg 60 mg PO QAM #90 tabs 11/17/21 06/27/22 Rx tablet,extended release 24 hr metolazone 5 mg tablet 5 mg PO DIRECTED PRN weight 12/19/21 06/27/22 Rx gain #20 tabs potassium chloride 20 mEq 20 - 40 meq PO AMPM #270 tabs 01/20/22 06/27/22 Rx tablet,extended release rosuvastatin 5 mg tablet 5 mg PO QAM #100 tabs 03/06/22 06/27/22 Rx OneTouch Verio test strips (blood #300 ea 04/25/22 06/27/22 Rx sugar diagnostic) blood-glucose meter (OneTouch #1 ea 04/25/22 06/27/22 Rx Verio Flex Meter) lancets 30 gauge (OneTouch Delica #300 ea 04/25/22 06/27/22 Rx Lancets) losartan 25 mg tablet 25 mg PO DAILY #90 tabs 05/04/22 06/27/22 Rx dapagliflozin 10 mg tablet 10 mg PO DAILY #30 tabs 05/08/22 06/27/22 Rx (Farxiga) carvedilol 25 mg tablet 25 mg PO BID #60 tabs 06/08/22 06/27/22 Rx fluoxetine 40 mg capsule 40 mg PO QAM #30 caps 06/08/22 06/27/22 Rx insulin human U-100 NPH-regulr 0 unit subcut DIRECTED PRN BSG 06/27/22 06/27/22 History 70-30 mix 100 unit/mL subcutaneous CONTROL susp (Novolin 70/30 U-100 Insulin) carvedilol 12.5 mg tablet 12.5 mg PO BID #60 tabs 06/28/22 Rx hydralazine 50 mg tablet 50 mg PO BID #60 tabs 06/28/22 Rx nitroglycerin 0.4 mg sublingual 0.4 mg sublingual Q5M PRN chest 06/28/22 Rx tablet pain #25 tabs Patient History Medical History Acute renal failure Diabetic nephropathy associated with type 2 diabetes mellitus Diverticular disease Fatty liver Glaucoma NO MEDICATIONS. "PRE-GLAUMCOMA" Gout Pancreatitis H/O Pulmonary nodules Surgical History Fusion of spine C4-7 ACDF H/O cervical spine surgery H/O elbow surgery LEFT History of cardiac cath NO STENTS. FOLLOWS WITH DR. HURTADO. History of colonoscopy History of esophagogastroduodenoscopy (EGD) History of tonsillectomy S/P Achilles tendon repair LEFT S/P wrist surgery Family History Grandmother Family history of diabetes mellitus Uncle Family history of diabetes mellitus Father COPD (chronic obstructive pulmonary disease) Lung disease Mother Hypertension Aunt Colorectal cancer Denies family history of Ovarian cancer Prostate cancer Myocardial infarction Breast cancer Social History Smoking Status: Former smoker Tobacco Type: Cigars Cigarettes Per Day: Rare cigar smoker, ~1x month; Second Hand Exposure: No; Hx Alcohol Use: No Hx Substance Use: No Preferred Language: Hungarian Communication Ability: Effective Visual Impairment: No Limitations Hearing Ability: Hard of Hearing Fre[employer] Required: No Beliefs That Will Affect Care: None marital status: Current Living Situation: Spouse current occupational status: employed and disabled 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 BP had been moderately hypertensive during most of this admission, normotensive this morning. Pulse 82 bpm and regular. Skin: no ecchymoses or generalized lesions. HEENT: unremarkable. Neck: no JVD or carotid bruits. Lungs: Mildly decreased breath sounds but clear bilaterally. No accessory muscle use. Cardiac: regular rhythm, normal S1 and S2, no murmur or gallop. Abdomen: benign. Extremities: no edema, pulses intact. Neurologic: normal affect and conversation, nonfocal. Results & Data Vital Signs (Past 12 Hours) Vital Signs Temp Pulse Resp BP Pulse Ox O2 Del Method 06/28/22 11:58 97.9 F 82 18 94/60 L 96 Room Air 06/28/22 07:37 97.7 F 69 19 137/81 95 Room Air 06/28/22 02:39 98.1 F 62 18 136/80 97 Room Air Laboratory Results High-sensitivity troponin 5.9. Normal electrolytes, BUN 24, creatinine 1.81. Diagnostic Findings ECG on admission showed sinus rhythm at 71 bpm with incomplete right bundle branch block, otherwise unremarkable. Chest x-ray was unremarkable. Dobutamine stress echocardiogram showed normal LV systolic function (EF 65 to 70%) with moderate LVH no wall motion abnormalities at rest or during pharmacologic stress. No significant valvular disease. ECG showed no changes during pharmacologic stress. Pulmonary function test from 2019 showed an FEV1 of 64% predicted and was interpreted as moderate obstructive disease with no change after bronchodilator. PG Care Time/CCT Total # of Minutes Spent Total Time Spent with Patient: Total time spent is greater than 50% in coordination of care (as documented) at patient's floor/unit and/or counseling patient: Coding Level of Care Code 93193 IN/OBS CONSULT LVL 4,60M Diagnoses GUTIERREZ (dyspnea on exertion) R06.09 H/O cardiomyopathy Z86.79 Nonobstructive atherosclerosis of coronary artery I25.10 Moderate COPD (chronic obstructive pulmonary disease) J44.9
[2022-06-28] MEDS ORDERED: SODIUM CHLORIDE 0.9% 1000ML 250 ML IV ONE (13:41)
--- NOTE | 2022-06-28 16:25 | XCELERA ---
[id number]
--- NOTE | 2022-06-28 16:26 | Electrocardiogram Report ---
Test Reason : Blood Pressure : / mmHG Vent. Rate : 069 BPM Atrial Rate : 069 BPM P-R Int : 184 ms QRS Dur : 110 ms QT Int : 412 ms P-R-T Axes : 047 076 051 degrees QTc Int : 441 ms Normal sinus rhythm Incomplete right bundle branch block Borderline ECG When compared with ECG of 27-JUN-2022 11:22, No significant change was found Confirmed by Davon Gonzalez ([id number]) on 06/28/2022 4:26:53 PM Referred By: REFERRED SELF Confirmed By:Davon Gonzalez
[2022-06-28] MEDS ORDERED: carvediloL 12.5 MG TAB PO SCH (21:00)
[2022-06-28] MEDS ORDERED: hydrALAZINE TAB 50 MG TAB PO SCH (21:00)
== END 2022-06-28 18:24 | disposition home or self-care (01) ==
LOC: ED 10:40 → SUATTDRO 15:09 → INTOOBSV 15:09 → EDINP 15:09 → 2S 19:10

== ENCOUNTER 2022-07-27 10:06 | Observation (INO) ==
--- NOTE | 2022-07-27 10:58 | XRay Report ---
SINGLE VIEW CHEST CLINICAL HISTORY: Atypical chest pain. FINDINGS: An AP, portable, upright chest radiograph is compared to study dated 06/27/2022 and correlate d with chest CT dated 08/19/2018. The heart is enlarged. The pulmonary vasculature is noncongested. Th ere is mild bibasilar scarring/atelectasis. The lungs and pleural spaces are otherwise clear. No pneu mothorax is seen. The skeletal structures are osteopenic. The bony thorax is grossly intact. A left s houlder arthroplasty is in place. Fusion hardware is seen in the lower cervical spine. IMPRESSION: Cardiomegaly with no acute cardiopulmonary abnormality. ACT 112: Negative or not required by law. Electronically signed by: Jose Dumont M.D. 07/27/2022 10:57 AM
[2022-07-27 11:58] LABS: Albumin Globulin Ratio 1.4 (0.9-2); Albumin Level 4.2 gm/dl (3.4-5.0); Bilirubin,Total 1.1 mg/dl (0.2-1.0); Calcium 9.1 mg/dl (8.6-10.3); Creatinine Clr Calc Pharmacy 39.4 ml/min; Est GFR (African American) 41.2 ml/min; Est GFR (Non-African American) 35.5 ml/min; Potassium 3.8 mmol/L (3.5-5.1); Total Protein 7.2 gm/dl (6.0-8.3)
[2022-07-27 12:13] LABS: Basophils # (auto) 0.03 K/uL (0-0.2); Basophils % (auto) 0.5 %; Eosinophils # (auto) 0.14 K/uL (0-0.50); Eosinophils % (auto) 2.5 %; Hematocrit (blood only) 45.1 % (42.0-52.0); Hemoglobin 15.8 g/dl (14.0-18.0); Immature Granulocytes # (auto) 0.02 K/uL (0.01-0.20); Immature Granulocytes % (auto) 0.4 %; Lymphocytes # (auto) 1.26 K/uL (1.2-3.4); Lymphocytes % (auto) 22.8 %; Mean Corpuscular Hemoglobin 29.3 pg (25.0-34.0); Mean Corpuscular Volume 83.5 fL (80.0-100.0); Mean Platelet Volume 9.4 fL (9.4-12.4); Monocytes # (auto) 0.42 K/uL (0.11-0.59); Monocytes % (auto) 7.6 %; Neutrophils # (auto) 3.65 K/uL (1.40-6.50); Neutrophils % (auto) 66.2 %; Platelet Count 173 K/uL (130-400); RDW Coefficient of Variation 13.5 % (11.5-14.5); RDW Standard Deviation 40.1 fL (36.4-46.3); White Blood Count 5.52 K/ul (4.8-10.8)
[2022-07-27 12:39] LABS: Partial Thromboplastin Time 28.2 Seconds (21.0-31.0); Prothrombin Time 11.1 Seconds (9.0-12.0)
--- NOTE | 2022-07-27 14:12 | Emergency Department Note ---
Impression & Plan Chest pain ADMIT ED Provider Note HPI: The patient is a 67-year-old gentleman with history of coronary artery disease, presents emergency department with a chief complaint of exertional shortness of breath and chest discomfort. Patient states he has had the symptoms for several weeks. Patient states he feels as if he is getting more short of breath with less exertion recently, also states he is getting a mild nonspecific chest discomfort in the middle portion of his chest. He states he contacted his catalytic case operator today, Dr. May, and was referred to the ED for further management. On arrival here to the ED the patient is in no acute distress, he states at rest he currently has no symptoms. ROS: - Per HPI *Outpatient medications and allergy history reviewed. *Pertinent external medical records reviewed. PE: General: Alert HEENT: Normocephalic, trachea midline Eyes: Extraocular eye movement is intact, no scleral erythema Pulmonary: Clear to auscultation bilaterally, no wheezing Cardio: Regular rate and rhythm GI: Abdomen is soft to palpation : No suprapubic tenderness MSK: No evidence of trauma or malformation of the extremities, no edema Skin: No evidence of rash Neuro: Alert, no focal deficits Psychiatric: Cooperative residential monitor: (As interpreted by myself): - An order was placed for continuous cardiac monitoring - Patient was noted to be in sinus rhythm with a rate of 75 EKG: (As interpreted by myself): Rate: 70 Rhythm: Normal sinus rhythm Intervals: Within normal limits ST changes: No ST elevation Time: 1108 Interventions provided in ED: -Aspirin Differential Diagnosis: Acute coronary syndrome, pulmonary embolism, aortic dissection, pneumonia, pneumothorax, amongst other potential pathologies. Medical Decision Making: Patient presented to the emergency department with symptoms of exertional dyspnea and chest discomfort recently. He does have a history of coronary artery disease, states this was per catheterization done in 2016 at [facility]. He states he did not receive a stent at the time. On arrival here to the ED the patient is in no acute distress. IV was established and lab work obtained, patient was placed on monitoring coordinator, EKG obtained that does not show any acute ischemic changes, troponin is negative x1. D-dimer is also within normal limits, low suspicion for PE. Patient remained comfortable while here in the ED, the remainder of his lab work does n ot show any critical findings. He was given aspirin for his intermittent chest discomfort that he has been experiencing with exertion. Patient expresses concern that he may require a diagnostic catheterization for further assessment of his pre-existing coronary artery disease, given his history he is high risk and his symptoms are typical in nature, I did discuss the case with the on-call hospitalist team for [facility], patient was placed for admission in stable condition. Consultants: Hospitalist service, [facility], Dr. Paul Disposition discussion held by myself with: Patient Diagnosis: 1. Exertional chest discomfort 2. Exertional dyspnea 3. History of coronary artery disease Disposition: Admission Nilesh Ferraro DO Emergency Medicine Past Med/Surg History Medical History Acute renal failure CAD (coronary artery disease) Diabetic nephropathy associated with type 2 diabetes mellitus Diverticular disease Fatty liver Glaucoma Gout Pancreatitis Pulmonary nodules Surgical History Fusion of spine C4-7 ACDF H/O cervical spine surgery H/O elbow surgery LEFT History of cardiac cath NO STENTS. FOLLOWS WITH DR. PRYOR. History of colonoscopy History of esophagogastroduodenoscopy (EGD) History of tonsillectomy S/P Achilles tendon repair LEFT S/P wrist surgery Family History Grandmother Family history of diabetes mellitus Uncle Family history of diabetes mellitus Father COPD (chronic obstructive pulmonary disease) Lung disease Mother Hypertension Aunt Colorectal cancer Denies family history of Ovarian cancer Prostate cancer Myocardial infarction Breast cancer Social History Smoking Status: Current every day smoker Tobacco Type: Cigars Cigarettes Per Day: Rare cigar smoker, ~1x month; Second Hand Exposure: No; Do You Dip or Chew Tobacco: No; Hx Alcohol Use: No Hx Substance Use: No Preferred Language: Bahraini Communication Ability: Effective Visual Impairment: No Limitations Hearing Ability: Hard of Hearing Clinical Nurse Occupational Medicine Required: No Beliefs That Will Affect Care: None marital status: Current Living Situation: Spouse current occupational status: employed and disabled 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 [employer] Feels Safe at Home: Yes Childhood Exposure to Second-Hand Smoke: Yes Diet: diabetic, low salt and regular caffeine: Yes (very rare) during the past year weight has: remained stable Dental Care, Regularly: No Physical Activity Frequency: Does not Exercise Seatbelt Use: always Sunscreen Use: No Assistive Devices: Glasses Allergies Allergies Allergy/AdvReac Type Severity Reaction Status Date / Time ketorolac [From Toradol] Allergy Severe kidney Verified 07/27/22 15:06 failure NSAIDS (Non-Steroidal Allergy Unknown Unknown Verified 07/27/22 15:06 Anti-Inflamma Jipbshy-SZB-HuY Reductase AdvReac Intermediate Muscle pain Verified 07/27/22 15:06 Inhibitor [Wsuytsr-Fqs-Ddt Reductase Inhibitor] Home Meds Home Medications Medication Instructions Recorded Confirmed cholecalciferol (vitamin D3) 25 25 mcg PO QAM 06/19/21 07/27/22 mcg (1,000 unit) capsule insulin human U-100 NPH-regulr 0 unit subcut DIRECTED PRN BSG 06/27/22 07/27/22 70-30 mix 100 unit/mL subcutaneous CONTROL susp (Novolin 70/30 U-100 Insulin) potassium chloride 20 mEq See Rx Instructions .Route .COMPLEX 07/27/22 07/27/22 tablet,extended release Previous Rx's Medication Instructions Recorded allopurinol 100 mg tablet 200 mg PO BID #360 tabs 06/23/20 ondansetron 4 mg disintegrating 4 mg PO Q8H PRN nausea and 06/18/21 tablet vomiting #30 tabs insulin syringe-needle U-100 0.3 #200 ea 07/01/21 mL 31 gauge x 5/16" (BD Insulin Syringe Ultra-Fine) ferrous sulfate 325 mg (65 mg 325 mg PO QAM #30 tabs 10/17/21 iron) tablet furosemide 40 mg tablet 40 mg PO BID #60 tabs 10/17/21 metolazone 5 mg tablet 5 mg PO DIRECTED PRN weight 12/19/21 gain #20 tabs rosuvastatin 5 mg tablet 5 mg PO QAM #100 tabs 03/06/22 OneTouch Verio test strips (blood #300 ea 04/25/22 sugar diagnostic) blood-glucose meter (OneTouch #1 ea 04/25/22 Verio Flex Meter) lancets 30 gauge (OneTouch Delica #300 ea 04/25/22 Lancets) losartan 25 mg tablet 25 mg PO DAILY #90 tabs 05/04/22 dapagliflozin 10 mg tablet 10 mg PO DAILY #30 tabs 05/08/22 ([facility]) fluoxetine 40 mg capsule 40 mg PO QAM #30 caps 06/08/22 carvedilol 12.5 mg tablet 12.5 mg PO BID #60 tabs 06/28/22 nitroglycerin 0.4 mg sublingual 0.4 mg sublingual Q5M PRN chest 06/28/22 tablet pain #25 tabs aspirin 81 mg tablet,delayed 81 mg PO DAILY #90 tabs 07/13/22 release isosorbide mononitrate 120 mg 240 mg PO QAM #180 tabs 07/24/22 tablet,extended release 24 hr Results & Data (ED) Vital Signs Vital Signs - 24 hr 07/27/22 10:11 07/27/22 13:31 07/27/22 13:31 Temperature 36.4 C L Temperature Source Oral Pulse Rate 74 Pulse Rate [Apical] 69 Pulse Rhythm Regular Pulse Strength Normal Respiratory Rate 16 18 Respiratory Effort / Characteristics Non-Labored Spontaneous Non-Labored Spontaneous Respiratory Depth Normal Normal Respiratory Pattern Regular Blood Pressure 156/76 H Blood Pressure [Right Arm] 170/90 H Blood Pressure Mean 102 Blood Pressure Mean [Right Arm] 116 Blood Pressure Position Sitting Pulse Oximetry 98 99 99 Oxygen Delivery Method Room Air Room Air Room Air Sepsis Recent Fever Within 48 Hours No Sepsis New/Unexplained Change in Mental Status No Sepsis Action Taken by Nursing No Action Required 07/27/22 13:32 07/27/22 13:42 Temperature Temperature Source Pulse Rate 70 Pulse Rate [Apical] Pulse Rhythm Pulse Strength Respiratory Rate Respiratory Effort / Characteristics Respiratory Depth Respiratory Pattern Blood Pressure Blood Pressure [Right Arm] Blood Pressure Mean Blood Pressure Mean [Right Arm] Blood Pressure Position Pulse Oximetry 99 Oxygen Delivery Method Room Air Sepsis Recent Fever Within 48 Hours Sepsis New/Unexplained Change in Mental Status Sepsis Action Taken by Nursing Laboratory Data 07/27/22 11:08 07/27/22 11:08 Lab Results 07/27/22 07/27/22 07/27/22 Range/Units 11:08 11:08 11:08 WBC 5.52 (4.8-10.8) K/ul RBC 5.40 (4.70-6.10) M/uL Hgb 15.8 (14.0-18.0) g/dl Hct 45.1 (42.0-52.0) % MCV 83.5 (80.0-100.0) fL MCH 29.3 (25.0-34.0) pg MCHC 35.0 (32.0-36.0) g/dL RDW Std Deviation 40.1 (36.4-46.3) fL RDW Coeff of Junito 13.5 (11.5-14.5) % Plt Count 173 (130-400) K/uL MPV 9.4 (9.4-12.4) fL Immature Gran % (Auto) 0.4 % Neut % (Auto) 66.2 % Lymph % (Auto) 22.8 % [place] % (Auto) 7.6 % Eos % (Auto) 2.5 % Baso % (Auto) 0.5 % Neut # (Auto) 3.65 (1.40-6.50) K/uL Lymph # (Auto) 1.26 (1.2-3.4) K/uL [place] # (Auto) 0.42 (0.11-0.59) K/uL Eos # (Auto) 0.14 (0-0.50) K/uL Baso # (Auto) 0.03 (0-0.2) K/uL Immature Gran # (Auto) 0.02 (0.01-0.20) K/uL PT 11.1 (9.0-12.0) Seconds INR 1.0 (0.9-1.1) APTT 28.2 (21.0-31.0) Seconds PTT Ratio 1.0 D-Dimer 350 (0-500) ug/L FEU Sodium 135 L (136-145) mmol/L Potassium 3.8 (3.5-5.1) mmol/L Chloride 104 (98-107) mmol/L Carbon Dioxide 25 (21-32) mmol/L Anion Gap 6 (3-11) BUN 29 H (6-23) mg/dl Creatinine 1.93 H (0.6-1.4) mg/dl Est Cr Clr Drug Dosing 39.4 ml/min Est GFR ( Amer) 41.2 ml/min Est GFR (Non-Af Amer) 35.5 ml/min BUN/Creatinine Ratio 15.0 (10-20) Glucose 284 H (70-99(Fasting)) mg/dl Calcium 9.1 (8.6-10.3) mg/dl Total Bilirubin 1.1 H (0.2-1.0) mg/dl AST 17 (13-39) U/L ALT 13 (7-52) U/L Alkaline Phosphatase 91 (34-104) U/L Troponin I High Sens 6.0 (0-20) pg/ml Total Protein 7.2 (6.0-8.3) gm/dl Albumin 4.2 (3.4-5.0) gm/dl Globulin 3.0 (2.5-4.0) gm/dl Albumin/Globulin Ratio 1.4 (0.9-2) SARS-CoV-2, RNA, NAAT (NEGATIVE) 07/27/22 07/27/22 Range/Units 14:39 15:37 WBC (4.8-10.8) K/ul RBC (4.70-6.10) M/uL Hgb (14.0-18.0) g/dl Hct (42.0-52.0) % MCV (80.0-100.0) fL MCH (25.0-34.0) pg MCHC (32.0-36.0) g/dL RDW Std Deviation (36.4-46.3) fL RDW Coeff of Junito (11.5-14.5) % Plt Count (130-400) K/uL MPV (9.4-12.4) fL Immature Gran % (Auto) % Neut % (Auto) % Lymph % (Auto) % [place] % (Auto) % Eos % (Auto) % Baso % (Auto) % Neut # (Auto) (1.40-6.50) K/uL Lymph # (Auto) (1.2-3.4) K/uL [place] # (Auto) (0.11-0.59) K/uL Eos # (Auto) (0-0.50) K/uL Baso # (Auto) (0-0.2) K/uL Immature Gran # (Auto) (0.01-0.20) K/uL PT (9.0-12.0) Seconds INR (0.9-1.1) APTT (21.0-31.0) Seconds PTT Ratio D-Dimer (0-500) ug/L FEU Sodium (136-145) mmol/L Potassium (3.5-5.1) mmol/L Chloride (98-107) mmol/L Carbon Dioxide (21-32) mmol/L Anion Gap (3-11) BUN (6-23) mg/dl Creatinine (0.6-1.4) mg/dl Est Cr Clr Drug Dosing ml/min Est GFR ( Amer) ml/min Est GFR (Non-Af Amer) ml/min BUN/Creatinine Ratio (10-20) Glucose (70-99(Fasting)) mg/dl Calcium (8.6-10.3) mg/dl Total Bilirubin (0.2-1.0) mg/dl AST (13-39) U/L ALT (7-52) U/L Alkaline Phosphatase (34-104) U/L Troponin I High Sens 5.1 (0-20) pg/ml Total Protein (6.0-8.3) gm/dl Albumin (3.4-5.0) gm/dl Globulin (2.5-4.0) gm/dl Albumin/Globulin Ratio (0.9-2) SARS-CoV-2, RNA, NAAT NEGATIVE (NEGATIVE) Administered Medications Discontinued Medications Aspirin (Aspirin Chew 324 Mg) 324 mg PO NOW STA Stop: 07/27/22 15:28 Last Admin: 07/27/22 15:34 Dose: 324 mg Documented By: FRED Carvedilol (Carvedilol 12.5 Mg Tab) 12.5 mg PO NOW STA Stop: 07/27/22 16:05 Last Admin: 07/27/22 17:05 Dose: 12.5 mg Documented By: FRED Furosemide (Furosemide 40 Mg Tab) 40 mg PO NOW STA Stop: 07/27/22 16:05 Last Admin: 07/27/22 17:05 Dose: 40 mg Documented By: FRED Isosorbide Mononitrate (Isosorbide [place] Extended Rel 60 Mg Tabcr) 120 mg PO ONE STA Stop: 07/27/22 16:05 Last Admin: 07/27/22 17:05 Dose: 120 mg Documented By: FRED Imaging Data Radiologist's Impression: Chest X-Ray 07/27/22 10:13 SINGLE VIEW CHEST CLINICAL HISTORY: Atypical chest pain. FINDINGS: An AP, portable, upright chest radiograph is compared to study dated 06/27/2022 and correlated with chest CT dated 08/19/2018. The heart is enlarged. The pulmonary vasculature is noncongested. There is mild bibasilar scarring/atelectasis. The lungs and pleural spaces are otherwise clear. No pneumothorax is seen. The skeletal structures are osteopenic. The bony thorax is grossly intact. A left shoulder arthroplasty is in place. Fusion hardware is seen in the lower cervical spine. IMPRESSION: Cardiomegaly with no acute cardiopulmonary abnormality. ACT 112: Negative or not required by law. Electronically signed by: Jose Dumont M.D. 07/27/2022 10:57 AM Discharge Plan Visit Data Chief Complaint: Cardiac Assessment Stated Complaint: SOB, CHEST PAIN, REF BY DOCTOR ED Provider: Nilesh Ferraro Discharge Problem: Chest pain Patient Disposition: Admitted As Inpatient Discharge Instructions Interventions: ED Discharge Assessment Last Done: 07/27/22 17:22
[2022-07-27 14:34] LABS: D Dimer 350 ug/L FEU (0-500)
[2022-07-27] MEDS ORDERED: ASPIRIN CHEW 324 MG PO STA (15:27)
--- NOTE | 2022-07-27 15:40 | History & Physical Report ---
Date of Service July 27, 2022 Assessment & Plan (1) GUTIERREZ (dyspnea on exertion): Plan: -Admit to med/tele -Currently afebrile, hemodynamically stable, and stable on RA -Unknown etiology at this time but the differential includes progressive CAD, COPD, lung cancer, anxiety, non-compliance with CPAP -Had a negative stress echo on 07/13, was referred to ED today for further working and possible non-emergent cardiac cath -Lungs are CTA but will obtain a non-con CT of the chest due to recent history of unintentional weight loss and previous smoker -Monitor on tele -Encourage him to continue using HS CPAP -BL SCD's and one dose of 40 mg SQ lovenox tonight for DVT PPX; will hold additional chemical PPX for now in case of cath in near future -AM CBC, BMP (2) Chest pain: Plan: -Had one episode of right-sided chest pain earlier today while sitting down to eat lunch -Resolved with one dose of SL nitro -He did not take his am medications and was hypertensive on arrival, this could have been contributing -Negative troponin and no acute ECG changes, currently asymptomatic -Cardiology consult placed, continue to monitor on tele (3) Weight loss: Plan: -States an approximately 30 lb weight loss over the past 3 months without making any lifestyle or medication changes -Had a ct of the ABD/Pelvis on 10/29/21 without acute findings and without GI symptoms -Non-con CT chest for further evaluation (4) CAD (coronary artery disease): Plan: -Continue daily 81 mg PO aspirin tomorrow as he had 324 mg in ED today (5) DM II (diabetes mellitus, type II), controlled: Plan: -Hold Farxiga and Novolin 70/30 -Monitor BSG ACHS, goal is 110-140 -Start 8 units lantus BID, CF 50, CR 15 -HH, DM II diet, 2 gm sodium restriction (6) Diastolic heart failure: Plan: -Euvolemic today -Continue 40 mg PO BID lasix (7) Moderate COPD (chronic obstructive pulmonary disease): Plan: -States he was previously diagnosed -Not on breathing treatments outpatient -FU Chest CT -Would need outpatient PFT's for further eval (8) Hypertension: Plan: -Will give am Carvedilol, Imdur, and lasix now -Continue home antihypertensives (9) Gout: Plan: -Continue allopurinol (10) Sleep apnea: Plan: -Continue to stress HS CPAP use (11) Dyslipidemia: Plan: -Continue statin Plan The patient was discussed with Dr. Paul at the time of the admission -Diet: HH, DM II, 2gm sodium restriction History of Present Illness Chief Complaint: Ongoing SOB Primary Care Provider: Narciso Loo MD Magdiel Ceron is a 67-year-old gentleman with a history significant for CAD, CKD, COPD, type 2 diabetes, hypertension, dyslipidemia, asbestosis, and sleep apnea (no longer on CPAP) who presented to the [facility] ED on 07/27/22 on the recommendation of his Tool Polishing Machine Operator, Dr. May, for onging GUTIERREZ and chest discomfort. Per chart review, the patient had a Cardiac cath at [facility] 10/13/2015 which showed Mid LAD 40 to 50%. Dominant RCA. He was seen by Dr. May on 07/13 for ongoing GUTIERREZ and chest discomfort and had a negative dobutamine stress echo at that time. They discussed the possibility of cardiac cath for further evaluation and the patient was interested. In the ED today the patient's vitals were noted to be stable. Labs including CBC, CMP, 2 high sen trops were WNL. CXR shows cardiomegaly without acute findings. Prior to admission the patient was given 324 mg Aspirin. We were asked to admit for observation due to his high risk Cardiac score and possible cardiac cath. At the time of the exam the patient was sitting in bed in no acute distress with his sitting bedside. He states that he has been having progressive GUTIERREZ and chest discomfort for the past year, since his admission for hypoxia with Covid-19. Over the past 2-3 months his symptoms have been getting progressively worse. At rest he is normally comfortable. 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 When asked, he describes the pain as dull and non-radiating. It will resolve with rest. He is unable to climb a set of stairs or walk 1/2 without getting significantly SOB. He called Dr. May's office today as he experienced right chest pain while sitting down for lunch. He did not take him am medications this morning but take one dose of SL nitro which resolved his symptoms. He states that Dr. May recommended to come to the ED for further assessment and possible admission for heart cath for further evaluation. Of note, he and his confirm that he has unintentionally lost approximately 30 lbs of weight over the past 3 months. He denies any recent medication changes during this time. He smoked 2-3 cigars weekly in the past for approximately 5 years but now only smokes one occasionally. He stopped using HS CPAP approxiamtely 4 years ago as he could not get comoftable with the mask or nasal cannula and woke multiple times a night very thirsty, even while using humidified oxygen. He wishes to be a conditional code with a trial of intubation only, in the event of respiratory failure. Please refer to Dr. Paul's attestation for any changes to the treatment plan Allergies Allergy/AdvReac Type Severity Reaction Status Date / Time ketorolac [From Toradol] Allergy Severe kidney Verified 07/27/22 15:06 failure NSAIDS (Non-Steroidal Allergy Unknown Unknown Verified 07/27/22 15:06 Anti-Inflamma Emmyckk-USR-VuJ Reductase AdvReac Intermediate Muscle pain Verified 07/27/22 15:06 Inhibitor [Rcxbter-Rhn-Hwc Reductase Inhibitor] Home Medications Medication Instructions Recorded Confirmed Type allopurinol 100 mg tablet 200 mg PO BID #360 tabs 06/23/20 07/27/22 Rx ondansetron 4 mg disintegrating 4 mg PO Q8H PRN nausea and 06/18/21 07/27/22 Rx tablet vomiting #30 tabs cholecalciferol (vitamin D3) 25 25 mcg PO QAM 06/19/21 07/27/22 History mcg (1,000 unit) capsule insulin syringe-needle U-100 0.3 #200 ea 07/01/21 07/24/22 Rx mL 31 gauge x 5/16" (BD Insulin Syringe Ultra-Fine) ferrous sulfate 325 mg (65 mg 325 mg PO QAM #30 tabs 10/17/21 07/27/22 Rx iron) tablet furosemide 40 mg tablet 40 mg PO BID #60 tabs 10/17/21 07/27/22 Rx metolazone 5 mg tablet 5 mg PO DIRECTED PRN weight 12/19/21 07/27/22 Rx gain #20 tabs rosuvastatin 5 mg tablet 5 mg PO QAM #100 tabs 03/06/22 07/27/22 Rx OneTouch Verio test strips (blood #300 ea 04/25/22 07/13/22 Rx sugar diagnostic) blood-glucose meter (OneTouch #1 ea 04/25/22 07/13/22 Rx Verio Flex Meter) lancets 30 gauge (OneTouch Delica #300 ea 04/25/22 07/13/22 Rx Lancets) losartan 25 mg tablet 25 mg PO DAILY #90 tabs 05/04/22 07/27/22 Rx dapagliflozin 10 mg tablet 10 mg PO DAILY #30 tabs 05/08/22 07/27/22 Rx (Farxiga) fluoxetine 40 mg capsule 40 mg PO QAM #30 caps 06/08/22 07/27/22 Rx insulin human U-100 NPH-regulr 0 unit subcut DIRECTED PRN BSG 06/27/22 07/27/22 History 70-30 mix 100 unit/mL subcutaneous CONTROL susp (Novolin 70/30 U-100 Insulin) carvedilol 12.5 mg tablet 12.5 mg PO BID #60 tabs 06/28/22 07/27/22 Rx nitroglycerin 0.4 mg sublingual 0.4 mg sublingual Q5M PRN chest 06/28/22 07/27/22 Rx tablet pain #25 tabs aspirin 81 mg tablet,delayed 81 mg PO DAILY #90 tabs 07/13/22 07/27/22 Rx release isosorbide mononitrate 120 mg 240 mg PO QAM #180 tabs 07/24/22 07/27/22 Rx tablet,extended release 24 hr potassium chloride 20 mEq See Rx Instructions .Route .COMPLEX 07/27/22 07/27/22 History tablet,extended release Past Med/Surg History Medical History Acute renal failure CAD (coronary artery disease) Diabetic nephropathy associated with type 2 diabetes mellitus Diverticular disease Fatty liver Glaucoma Gout Pancreatitis Pulmonary nodules Surgical History Fusion of spine C4-7 ACDF H/O cervical spine surgery H/O elbow surgery LEFT History of cardiac cath NO STENTS. FOLLOWS WITH DR. PRYOR. History of colonoscopy History of esophagogastroduodenoscopy (EGD) History of tonsillectomy S/P Achilles tendon repair LEFT S/P wrist surgery Family History Grandmother Family history of diabetes mellitus Uncle Family history of diabetes mellitus Father COPD (chronic obstructive pulmonary disease) Lung disease Mother Hypertension Aunt Colorectal cancer Denies family history of Ovarian cancer Prostate cancer Myocardial infarction Breast cancer Social History Smoking Status: Former smoker Tobacco Type: Cigars Cigarettes Per Day: Rare cigar smoker, ~1x month; Second Hand Exposure: No; Do You Dip or Chew Tobacco: No; Hx Alcohol Use: No Hx Substance Use: No Preferred Language: Congolese Communication Ability: Effective Visual Impairment: No Limitations Hearing Ability: Hard of Hearing Rehabilitation Counsellor Required: No Beliefs That Will Affect Care: None marital status: Current Living Situation: Spouse Current Living Situation Comment: home w spouse current occupational status: employed and disabled 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 [employer] Other Information That Helps Us Care for You: No Feels Safe at Home: Yes Safety Concerns: Feels Safe At This Time Childhood Exposure to Second-Hand Smoke: Yes Diet: diabetic, low salt and regular caffeine: Yes (very rare) during the past year weight has: remained stable Dental Care, Regularly: No Physical Activity Frequency: Does not Exercise Seatbelt Use: always Sunscreen Use: No Assistive Devices: None Physical Exam Physical Exam: Physical Exam: General: In no acute distress, stated age, obese HEENT: Normocephalic, atraumatic, no scleral icterus, pupils around round, symmetrical, and reactive to light, moist mucus membranes, trachea midline, no thyromegaly Chest/Pulm: No respiratory distress, symmetrical chest expansion, clear breath sounds throughout Cardiac: RRR, no murmurs noted Abdomen: Negative for ascites and bruising, normoactive bowel sounds, soft, non-tender to palpation throughout Musculoskeletal: Symmetrical and without signs of acute trauma, upper and lower extremities with full ROM, no atrophy, spasticity, or flaccidity Extremities: Radial, dorsalis pedis, and posterior tibial pulses are intact and symmetrical, no edema noted in the BL LE's Skin: Warm, dry, no rashes , lesions, or scars noted Neuro: Alert and oriented to person, place, month, year, and president, no focal defects,no tremors noted Psych: No acute distress, calm and cooperative during the exam Results & Data Results & Data Vital Signs (Past 12 Hours) Vital Signs Temp Pulse Pulse Resp BP BP Pulse Ox 07/27/22 13:42 70 07/27/22 13:32 99 07/27/22 13:31 99 07/27/22 13:31 69 18 170/90 H 99 07/27/22 10:11 36.4 C L 74 16 156/76 H 98 O2 Del Method 07/27/22 13:42 07/27/22 13:32 Room Air 07/27/22 13:31 Room Air 07/27/22 13:31 Room Air 07/27/22 10:11 Room Air Laboratory Results Abnormal lab results 07/27/22 Range/Units 11:08 Sodium 135 L (136-145) mmol/L BUN 29 H (6-23) mg/dl Creatinine 1.93 H (0.6-1.4) mg/dl Glucose 284 H (70-99(Fasting)) mg/dl Total Bilirubin 1.1 H (0.2-1.0) mg/dl Diagnostic Findings Chest X-Ray 07/27/22 10:13 SINGLE VIEW CHEST CLINICAL HISTORY: Atypical chest pain. FINDINGS: An AP, portable, upright chest radiograph is compared to study dated 06/27/2022 and correlated with chest CT dated 08/19/2018. The heart is enlarged. The pulmonary vasculature is noncongested. There is mild bibasilar scarring/atelectasis. The lungs and pleural spaces are otherwise clear. No pneumothorax is seen. The skeletal structures are osteopenic. The bony thorax is grossly intact. A left shoulder arthroplasty is in place. Fusion hardware is seen in the lower cervical spine. IMPRESSION: Cardiomegaly with no acute cardiopulmonary abnormality. ACT 112: Negative or not required by law. Electronically signed by: Jose Dumont M.D. 07/27/2022 10:57 AM ECG Additional Comments: Normal sinus rhythm Non-specific intra-ventricular conduction delay Borderline ECG When compared with ECG of 28-JUN-2022 13:35, Non-specific intra-ventricular conduction delay has replaced Incomplete right bundle branch block Code Status & VTE Plan Code Status Conditional; no CPR or defibrillation in event of cardiac arrest. Would want trial of intubation for respiratory failure VTE Prophylaxis Plan VTE Prophylaxis will be ordered: Yes Supervising Physician Co-Signing Physician Notes I personally saw and examined the patient. I verified all zuniga points and agree with Heraclio العلي PA-C with the following exceptions and/or additions: 67 year old male who presents to the ER with ongoing shortness of breath and chest pain on exertion. Getting progressively worse despite increased anti- anginal medications increased by his flanging roll operator. Recommended he comes to the ER today by his flanging roll operator office. Fatigue and decreased appetite seem to be longer standing ever since his COVID infection in 2020 and became worse after a vomiting illness in October 2021. O/E A&Ox3, HS RRR, no murmurs, Chest CTAB, Abdo SNT, no pitting edema, CN 2-> 12 intact, no extremity weakness or sensation loss. A/P Shortness of breath / chest pain on exertion (suspected stable/unstable angina) - agree with PFTs as outpatient. Agree with continued cardiac workup while here as reasonably high likelihood he has a lesion that is amenable to PCI given history of very exertional symptoms Unintentional weight loss - per EMR this appears to have been stable since January 2022 with weight loss from October to January 2022. He had a vomiting illness followed by a sinus headache during that time which I suspect caused his weight loss as he felt very. CT chest performed prior to this history and reassuringly without a lung mass. PG Care Time/CCT Total # of Minutes Spent Total Time Spent with Patient: Total time spent is greater than 50% in coordination of care (as documented) at patient's floor/unit and/or counseling patient: Coding [place] [address] INT INP/OBS CARE 3/75MIN Patient Type Established Medical Decision Making High Complexity Diagnoses GUTIERREZ (dyspnea on exertion) R06.09 Chest pain R07.9 Weight loss R63.4 CAD (coronary artery disease) I25.10 DM II (diabetes mellitus, type II), controlled E11.9 Diastolic heart failure I50.30 Moderate COPD (chronic obstructive pulmonary disease) J44.9 Hypertension I10 Gout M10.9 Sleep apnea G47.30 Dyslipidemia E78.5
[2022-07-27] MEDS ORDERED: FUROSEMIDE 40 MG TAB PO STA (16:04)
[2022-07-27] MEDS ORDERED: ISOSORBIDE MONO EXTENDED REL 60 MG TABCR PO STA (16:04)
[2022-07-27] MEDS ORDERED: carvediloL 12.5 MG TAB PO STA (16:04)
[2022-07-27] MEDS ORDERED: DEXTROSE 50% 50 ML SYRINGE IV PRN (16:17)
[2022-07-27] MEDS ORDERED: GLUCAGON FOR INJ 1 MG VIAL SQ PRN (16:17)
[2022-07-27] MEDS ORDERED: GLUCOSE 10 TAB/TUBE PO PRN (16:17)
[2022-07-27] MEDS ORDERED: CARBOHYDRATES FOR HYPOGLYCEMIA PO PRN (16:17)
[2022-07-27] MEDS ORDERED: GLUCOSE 40% GEL 15 GM TUBE PO PRN (16:17)
--- NOTE | 2022-07-27 17:02 | CT Scan Report ---
CT OF THE CHEST WITHOUT IV CONTRAST CLINICAL HISTORY: Shortness of breath. Unintentional weight loss. COMPARISON STUDY: Chest radiograph July 27, [address] August 19, 2018. CT DOSE: 574.79 mGycm TECHNIQUE: Axial images of the chest were obtained without IV contrast. Images were reviewed in the axial, sagittal, and coronal planes. IV contrast was not administered for this examination. Automat ed exposure control was utilized for the study. A dose lowering technique was utilized adhering to t he principles of ALARA. FINDINGS: No enlarged axillary, mediastinal or hilar lymph nodes are present. The size of the heart is normal. There is no pericardial effusion. Moderate coronary artery calcification is noted. No pneu mothorax or pleural effusion is noted. There is no consolidation to suggest pneumonia. Subpleural opa cities favor atelectasis. There is no consolidation to suggest pneumonia. There are no suspicious pul monary nodules. Splenomegaly is unchanged since CT of August 19, 2018. IMPRESSION: 1. No acute intrathoracic findings. 2. No CT evidence for malignancy within the chest. 3. Stable splenomegaly. ACT 112: Negative or not required by law. Electronically signed by: Mathew Castanon M.D. 07/27/2022 5:01 PM
[2022-07-27] MEDS ORDERED: ACETAMINOPHEN 325 MG TAB PO PRN (17:21)
[2022-07-27] MEDS ORDERED: carvediloL 12.5 MG TAB PO SCH (18:00)
[2022-07-27] MEDS: INSULIN ASPART PER UNIT CHARGE SC SCH ×2 (18:37→21:08)
[2022-07-27] MEDS: FUROSEMIDE 40 MG TAB PO SCH (19:21)
[2022-07-27] MEDS: allopurinoL 100 MG TAB PO SCH (20:22)
[2022-07-27] MEDS ORDERED: ENOXAPARIN INJ 40 MG/0.4 ML SYR SQ SCH (21:00)
[2022-07-27] MEDS: LANTUS PER UNIT CHARGE SQ SCH (21:08)
[2022-07-28 07:45] LABS: Hematocrit (blood only) 43.5 % (42.0-52.0); Hemoglobin 15.3 g/dl (14.0-18.0); Mean Corpuscular Hemoglobin 28.9 pg (25.0-34.0); Mean Corpuscular Hgb Conc 35.2 g/dL (32.0-36.0); Mean Corpuscular Volume 82.1 fL (80.0-100.0); Mean Platelet Volume 9.2 fL (9.4-12.4); Platelet Count 149 K/uL (130-400); RDW Coefficient of Variation 13.6 % (11.5-14.5); RDW Standard Deviation 39.6 fL (36.4-46.3); White Blood Count 5.61 K/ul (4.8-10.8)
[2022-07-28 08:14] LABS: Calcium 8.9 mg/dl (8.6-10.3); Potassium 3.5 mmol/L (3.5-5.1)
[2022-07-28 08:20] LABS: BUN Creatinine Ratio 15.5 (10-20); Creatinine Clr Calc Pharmacy 38.1 ml/min; Est GFR (African American) 39.4 ml/min
[2022-07-28] MEDS: INSULIN ASPART PER UNIT CHARGE SC SCH ×4 (08:46→20:42)
[2022-07-28] MEDS: ASPIRIN 81 MG ECTAB PO SCH (08:47)
[2022-07-28] MEDS: allopurinoL 100 MG TAB PO SCH (08:47)
[2022-07-28] MEDS: FLUoxetine HCL 20 MG CAP PO SCH (08:48)
[2022-07-28] MEDS: LANTUS PER UNIT CHARGE SQ SCH ×2 (08:49→20:41)
[2022-07-28] MEDS: ISOSORBIDE MONO EXTENDED REL 60 MG TABCR PO SCH (08:49)
[2022-07-28] MEDS: ROSUVASTATIN CALCIUM 5 MG TAB PO SCH (08:50)
[2022-07-28] MEDS ORDERED: LOSARTAN POTASSIUM 25 MG TAB PO SCH (09:00)
[2022-07-28] MEDS ORDERED: FERROUS SULFATE 325 MG TAB PO SCH (09:00)
[2022-07-28] MEDS: SODIUM CHLORIDE 0.9% 1000ML 1,000 ML IV SCH ×2 (10:21→16:38)
[2022-07-28] MEDS: carvediloL 12.5 MG TAB PO SCH ×2 (10:21→17:30)
[2022-07-28] MEDS: FUROSEMIDE 40 MG TAB PO SCH ×2 (10:50→17:30)
--- NOTE | 2022-07-28 14:05 | Pre Anesthesia Assessment ---
Date of Service July 28, 2022 Pre Sedation Assessment Vital Signs Temp Pulse Pulse Resp BP BP Pulse Ox 07/28/22 11:22 36.9 C 82 18 136/80 96 07/28/22 06:01 76 07/28/22 07:47 36.9 C 68 18 155/83 H 95 07/28/22 07:35 07/28/22 04:09 36.7 C 78 18 161/85 H 96 07/28/22 00:53 71 07/27/22 23:09 36.8 C 71 18 134/73 97 07/27/22 20:28 07/27/22 20:07 36.4 C L 67 16 148/74 H 95 07/27/22 19:43 07/27/22 19:42 67 18 129/68 96 07/27/22 18:31 72 Pulse Ox O2 Del Method O2 Del Method 07/28/22 11:22 Room Air 07/28/22 06:01 07/28/22 07:47 Room Air 07/28/22 07:35 Room Air 07/28/22 04:09 Room Air 07/28/22 00:53 07/27/22 23:09 Room Air 07/27/22 20:28 Room Air 07/27/22 20:07 Room Air 07/27/22 19:43 96 Room Air 07/27/22 19:42 Room Air 07/27/22 18:31 Cardiovascular RRR, no murmur, no edema (S4) Respiratory normal respiratory effort, lungs clear to auscultation (poor air movement) Pre-Sedation Airway Assessment Smoking Status: Former smoker Hx Sleep Apnea: No Hx Difficult Intubation: No Notes The planned sedation has been discussed with the patient. Informed Consent was obtained. I have identified the patient, determined the appropriateness of sedation and have assessed the patient immediately prior to the procedure. All medicine(s) and interventions are by my order. [facility] [place]odes (Charges) Indication for Procedure Indication for procedure: chest pain
[2022-07-28] MEDS ORDERED: fentaNYL citrate PF 100 MCG/2 ML VIAL ONE (14:16)
[2022-07-28] MEDS ORDERED: HEPARIN (PORCINE) 1000 UNIT/ML 10 ML (CATH LAB USE ONLY) ONE (14:16)
[2022-07-28] MEDS ORDERED: NITROGLYCERIN/D5W 100MCG/ML 20ML SYR ONE (14:16)
[2022-07-28] MEDS ORDERED: MIDAZOLAM HCL 1 MG/ML 2ML VIAL ONE (14:16)
[2022-07-28] MEDS ORDERED: niCARdipine HCL INJ 2.5 MG/ML 10 ML AMP ONE (14:16)
[2022-07-28] MEDS ORDERED: TICAGRELOR 90 MG TAB ONE (15:32)
[2022-07-28] MEDS ORDERED: ASPIRIN 81 MG CHEW ONE (15:32)
--- NOTE | 2022-07-28 15:35 | Hospitalist Progress Note ---
Date of Service July 28, 2022 Assessment & Plan (1) GUTIERREZ (dyspnea on exertion): Plan: No overt CHF. Cardiology consultation appreciated. He will undergo left heart catheterization later today, July 28. Continue current medical management for now. Telemetry. (2) Chest pain: Plan: No evidence of acute coronary syndrome. Troponins nontrending. No acute EKG changes. Left heart catheterization later today, July 28. Appreciate cardiology consultation and recommendations. (3) Weight loss: Plan: 30 lb weight loss over the past 3 months without making any lifestyle or medication changes . CT of the ABD/Pelvis on 10/29/21 without acute findings and without GI symptoms . Non-con CT chest ordered for further evaluation (4) CAD (coronary artery disease): Plan: Continue current medical management. Left heart catheterization today, July 28 (5) DM II (diabetes mellitus, type II), controlled: Plan: Holding Farxiga and Novolin 70/30 . ADA diet. Sliding scale coverage as needed. Basal insulin therapy (6) Diastolic heart failure: Plan: Chronic. Stable. Monitor intake and output. Continue Lasix (7) Moderate COPD (chronic obstructive pulmonary disease): Plan: Stable. Continue current medical management. Chest CT report pending (8) Hypertension: Plan: Stable. Continue current medical management (9) Gout: Plan: Stable. Continue allopurinol (10) Sleep apnea: Plan: Stable. Continue HS CPAP use (11) Dyslipidemia: Plan: Stable. Continue statin Plan Anticipate eventual discharge to home. Hopefully tomorrow, July 29 -Diet: HH, DM II, 2gm sodium restriction Admission and Anticipated Discharge Date Admission Date: July 27, 2022 Subjective Alert and oriented. Asymptomatic at the time of my evaluation earlier today. He will undergo left heart catheterization later today. Appreciate cardiology consultation and recommendations. Continue current medical management for now Review of Systems Review of Systems: Constitutional-no fever or chills ENT-no blurred vision, no double vision, no epistaxis, no sore throat Respiratory-no cough, no wheezing. Shortness of breath with exertion prompted return to ED Cardiac-no palpitations, no syncope. Recurrent chest discomfort prompted return to ED GI-no nausea, vomiting, diarrhea, melena, hematochezia -no urinary retention, no urinary incontinence, no dysuria, no hematuria Musculoskeletal-no joint pain, no muscle tenderness Skin-no bruising, no rashes, no pruritus Neuro-no isolated weakness, no paresthesia, no weakness Psych-no depression, no anxiety Physical Exam Physical Exam: General-alert and oriented x3, no fevers, no chills HEENT-head atraumatic and normocephalic, pupils equal and reactive to light, extraocular muscles intact Neck-no lymphadenopathy or thyromegaly, trachea midline Chest-clear to auscultation percussion. No rales wheezing or rhonchi Cardiac-regular rate and rhythm, normal S1 and S2 Abdomen-normal bowel sounds, nontender, no hepatosplenomegaly Extremities-no cyanosis, clubbing, or edema Neuro-cranial nerves II through XII intact, motor and sensory function within normal limits, strength symmetrical , no focal deficits Psych-normal affect, normal mood Results & Data Results & Data Vital Signs (Past 12 Hours) Vital Signs Temp Pulse Pulse Resp BP BP Pulse Ox 07/28/22 14:07 75 16 131/80 97 07/28/22 11:22 36.9 C 82 18 136/80 96 07/28/22 06:01 76 07/28/22 07:47 36.9 C 68 18 155/83 H 95 07/28/22 07:35 07/28/22 04:09 36.7 C 78 18 161/85 H 96 O2 Del Method 07/28/22 14:07 Room Air 07/28/22 11:22 Room Air 07/28/22 06:01 07/28/22 07:47 Room Air 07/28/22 07:35 Room Air 07/28/22 04:09 Room Air Laboratory Results 07/28/22 07:20 07/28/22 07:20 PG Care Time/CCT Total # of Minutes Spent Total Time Spent with Patient: Total time spent is greater than 50% in coordination of care (as documented) at patient's floor/unit and/or counseling patient: Coding Level of Care Code 45440 SUB INP/OBS CARE 3/50MIN Diagnoses GUTIERREZ (dyspnea on exertion) R06.09 Chest pain R07.9 Weight loss R63.4 CAD (coronary artery disease) I25.10 DM II (diabetes mellitus, type II), controlled E11.9 Diastolic heart failure I50.30 Moderate COPD (chronic obstructive pulmonary disease) J44.9 Hypertension I10 Gout M10.9 Sleep apnea G47.30 Dyslipidemia E78.5
--- NOTE | 2022-07-28 16:05 | Post Anesthesia Assessment ---
Date of Service July 28, 2022 Post Sedation Assessment Vital Signs Temp Pulse Pulse Pulse Resp BP BP 07/28/22 15:43 37.1 C 78 18 97/61 L 07/28/22 14:07 75 16 131/80 07/28/22 11:22 36.9 C 82 18 136/80 07/28/22 06:01 76 07/28/22 07:47 36.9 C 68 18 155/83 H 07/28/22 07:35 07/28/22 04:09 36.7 C 78 18 161/85 H 07/28/22 00:53 71 07/27/22 23:09 36.8 C 71 18 134/73 07/27/22 20:28 07/27/22 20:07 36.4 C L 67 16 148/74 H 07/27/22 19:43 07/27/22 19:42 67 18 129/68 07/27/22 18:31 72 Pulse Ox Pulse Ox O2 Del Method O2 Del Method 07/28/22 15:43 95 Room Air 07/28/22 14:07 97 Room Air 07/28/22 11:22 96 Room Air 07/28/22 06:01 07/28/22 07:47 95 Room Air 07/28/22 07:35 Room Air 07/28/22 04:09 96 Room Air 07/28/22 00:53 07/27/22 23:09 97 Room Air 07/27/22 20:28 Room Air 07/27/22 20:07 95 Room Air 07/27/22 19:43 96 Room Air 07/27/22 19:42 96 Room Air 07/27/22 18:31 Discharge Sedation Level of Care: Fast Track Phase II Post Sedation Plan On clinical assessment, the patient appears to have tolerated the sedation without complications. Patient is recovering as anticipated. Patient will continue to be monitored by nursing and may be discharged when sedation discharge criteria are met per below protocol. Upon Completions of procedure up to 15 minutes continue every 5 minute vital signs and the P.A.R. score; then discharge to a Phase I or Fast Track to Phase II per the following guidelines: * Discharge Patient to appropriate Phase II area if PAR is 8 or greater or return to pre- procedure baseline. The post - procedure orders will be as directed. * If PAR score is less than 8 or not return to pre-procedure baseline then patient will follow Phase I monitoring till PAR is reached for Phase II. The Phase I may be done in procedure room or may call to secure a Phase I area. * If naloxone or flumazenil are used for reversal, hold in Phase I for continued monitoring from when last reversal dose was given for a minimum of 60 minutes or longer pending the nurse and/or physician discretion of patient condition before discharge to Phase II. Please call the Sedation Physician to re-evaluate and complete post-note for discharge to Phase II area. Do NOT discharge from procedure sedation or Phase 1 until post- sedation evaluation note is complete by procedure /sedation MD Sedation Discharge Instructions to be given to the patient at discharge to home. [facility] [place] Procedure Codes (Charges) Indication for Procedure Indication for procedure: unstable angina Sedation/Anesthesia Procedure 1: Sedation/Anesthesia: 56816 Mod Sedation by the same physician;Init15 Min Child Age 5 & Up Total Sedation Time (minutes): 55 Procedure 2: Sedation/Anesthesia: 17726 Mod Sedation by the same physician; Ea [id number] Minutes (additional 40 min) Total Sedation Time (minutes): 55
--- NOTE | 2022-07-28 16:24 | Cardiac Catheterization ---
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 Cardiac Status Clinical evaluation leading to the procedure CAD Presenation: Unstable angina Anginal Classification: CCS IV Heart Failure: No Cardiogenic Shock within 24 Hours: No Cardiac Arrest within 24 Hours: No Imaging Studies Past 6 Months: Yes Stress Studies Past 6 Months: Yes Stress Echocardiogram: Yes - Negative Coronary Anatomy Dominant: Right Left Main (% Stenosis): Normal LAD (% Stenosis): Proximal (30%) and Mid (95%) D1 (% Stenosis): Proximal (60 to 70%) Circumflex (% Stenosis): Normal OM1 (% Stenosis): Normal OM2 (% Stenosis): Normal RCA (% Stenosis): Normal (Mild scattered) R PDA (% Stenosis): Normal R PL1 (% Stenosis): Normal Diagnostic Physicians Name: Henrry Dasilva MD, PhD Closure Device Percutaneous Entry Location: Radial Closure Device: Radial Band Recommendations: Medical Therapy and/or Counseling and PCI without planned CABG PCI Indication: Angina despite med therapy and Unstable Angina Lesion Segment Name: Mid LAD Culprit Artery: Yes Stenosis Prior to Rx (%): 95% Chronic Total Occlusion: No Pre-Procedure DEVI Flow: 3 Previously Treated Lesion: No Lesion Complexity: Non-High/Non-C Lesion Length (mm): 15 Thrombus Present: No Bifurcation Lesion: No Guidewire Across Lesion: Yes Cardiac Cath Procedure Full Procedure Date July 28, 2022 Pre-Procedure Diagnosis Pre-Procedure Diagnosis: Acute Coronary Syndrome (Unstable angina) AUC Score AUC Score: 07 Post-Procedure Diagnosis Post-Procedure Diagnosis: Severe CAD Procedure(s) Performed Procedure(s) Performed: Coronary Angiography, Drug Eluting Stent and Ultrasound Guided Vascular Access Warehouse 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 Sedated using IV Versed and fentanyl. Soft tissues of the right wrist were anesthetized using 2 mils of 1% Xylocaine. Using the ultrasound for guidance, the right radial artery was accessed and a 6 Nigerien radial artery glide sheath was placed. Patient was provided anticoagulation with IV heparin and antispasmodics including nicardipine and nitroglycerin. All catheters were advanced and exchanged over a 0. 035 J-tip wire. Left coronary angiography in orthogonal views with a 5 Nigerien JL 3.5 diagnostic catheter. Right coronary angiography in orthogonal views with a 5 Nigerien JR4 diagnostic catheter. Diagnostic catheters were removed. ACT was checked and additional IV heparin provided as needed to maintain therapeutic anticoagulation. PCI was undertaken using a 6 Nigerien EBU 3.0 guide catheter. BMW reversal guidewire was advanced and positioned distally in the LAD. Lesion was predilated with a 2.5 x 12 followed by a 2.5 x 15 mm PTCA balloon. Lesion was stented using a 2.75 x 22 mm Zack drug-eluting stent. Proximal portion of the stent was postdilated with a 3.0 x 9 mm noncompliant balloon. Pin Ball Machine Mechanic angiography performed. Guidewire removed and final angiographic evaluation was performed. Guide catheter was removed. Radial artery glide sheath was removed. Hemostasis was obtained using the TR band. Patient remained hemodynamically stable and asymptomatic. He was returned to the recovery area. This ended the case. Coronary angiography: LMT: Large-caliber vessel bifurcating into LAD and circumflex. Diffuse luminal irregularities. LAD: Large caliber and transapical. Proximal segment has mild disease of up to 30% stenosis. There is a large septal branch and then a large branching first diagonal. This vessel has proximal 60-70% stenosis. The early mid LAD has mild disease and then there is a 95% stenosis which is somewhat long and extends to the early distal vessel. Beyond this the remainder of the distal LAD has only mild scattered plaques. LCx: Large caliber and nondominant. Travels in the AV groove where the proximal segment has mild luminal irregularities. It provides a small OM1 and then a large branching OM 2. These vessels have mild luminal irregularities. RCA: This is large caliber and dominant. It has mild scattered disease. Bifurcates distally into a large PDA and large posterior lateral which have no significant disease. PCI of LAD: 0% residual stenosis post PCI No evidence of dissection or perforation post PCI DEVI-3 flow post PCI Summary: 1. Severe LAD stenosis culprit for symptoms. 2. Successful PCI with implantation of a drug-eluting stent to the LAD. 3. Patient will be started on dual antiplatelet therapy with aspirin and Br ilinta to complete at least 1 year therapy. 4. Guideline directed medical therapy will be optimized and will include; aspirin, beta-ponce, high intensity statin therapy, and LAURIE inhibitor/ARB as tolerated by renal function. Hemodynamics Rest Ao:: 125/74 mmHg Final Ao: 127/71 mmHg LV: Not performed Recommendations Recommendations: Medical Therapy and/or Counseling and PCI without planned CABG Radiation Exposure (mGy) 2460 mGy, fluoroscopy time 11.1 minutes Contrast (mls) 145 mL Anesthesia Start 14:37, end 15:32 Procedural Complication(s) None Disposition Recovery Room\PACU I attest to the content of the Intraoperative Record and any orders documented therein. Any exceptions are noted below. [email or web address] Card Cath Procedure Codes Cardiac Catheterization Procedure 1: Cardiovascular Cath Procedures: 17052 Coronaries Therapeutic Services & Ancillary Procedure 1: Cardiovascular Tx and Anc Procedures: 07334 Ultrasonic Guidance Vascular Access Moderate Sedation Procedure 1: Sedation/Anesthesia: 36008 Mod Sedation by the same physician;Init15 Min Child Age 5 & Up (Initial 15 min (total 55 minutes)) Procedure 2: Sedation/Anesthesia: 89210 Mod Sedation by the same physician; Ea [id number] Minutes (Additional 40-minute (total 55 minutes)) Stenting Procedure 1: Cardiovascular Stent Procedures: 14499 Perc transcatheter placement of intracoronary stent(s), with ang (LAD) PG Care Time/CCT Total # of Minutes Spent Total Time Spent with Patient: Total time spent is greater than 50% in coordination of care (as documented) at patient's floor/unit and/or counseling patient:
[2022-07-28] MEDS ORDERED: metOLazone 5 MG TABLET PO PRN (16:26)
[2022-07-28] MEDS ORDERED: NITROGLYCERIN SL 0.4 MG/TAB TAB SL PRN (16:26)
[2022-07-28] MEDS ORDERED: ONDANSETRON 4 MG OD TAB PO PRN (16:26)
[2022-07-28] MEDS: TICAGRELOR 90 MG TAB PO SCH (20:40)
[2022-07-28] MEDS: POTASSIUM CHLORIDE CRTAB 20 MEQ TABCR PO SCH (20:41)
--- NOTE | 2022-07-28 21:05 | Electrocardiogram Report ---
Test Reason : Blood Pressure : / mmHG Vent. Rate : 070 BPM Atrial Rate : 070 BPM P-R Int : 194 ms QRS Dur : 120 ms QT Int : 408 ms P-R-T Axes : 020 064 051 degrees QTc Int : 440 ms Normal sinus rhythm Non-specific intra-ventricular conduction delay Borderline ECG When compared with ECG of 28-JUN-2022 13:35, Non-specific intra-ventricular conduction delay has replaced Incomplete right bundle branch block Confirmed by Ranjit Troy ([id number]) on 07/28/2022 9:04:49 PM Referred By: Confirmed By:Ranjit Troy
--- NOTE | 2022-07-28 22:09 | Electrocardiogram Report ---
Test Reason : Blood Pressure : / mmHG Vent. Rate : 076 BPM Atrial Rate : 076 BPM P-R Int : 200 ms QRS Dur : 100 ms QT Int : 404 ms P-R-T Axes : 054 080 046 degrees QTc Int : 454 ms Normal sinus rhythm Normal ECG When compared with ECG of 27-JUL-2022 11:08, (unconfirmed) No significant change was found Confirmed by Ranjit Troy ([id number]) on 07/28/2022 10:09:13 PM Referred By: Lg May Confirmed By:Ranjit Troy
[2022-07-29] MEDS: SODIUM CHLORIDE 0.9% 1000ML 1,000 ML IV SCH ×3 (02:17→09:46)
[2022-07-29 04:52] LABS: Basophils # (auto) 0.03 K/uL (0-0.2); Basophils % (auto) 0.5 %; Eosinophils # (auto) 0.13 K/uL (0-0.50); Eosinophils % (auto) 2.1 %; Hematocrit (blood only) 40.4 % (42.0-52.0); Hemoglobin 14.1 g/dl (14.0-18.0); Immature Granulocytes # (auto) 0.04 K/uL (0.01-0.20); Immature Granulocytes % (auto) 0.7 %; Lymphocytes # (auto) 1.19 K/uL (1.2-3.4); Lymphocytes % (auto) 19.3 %; Mean Corpuscular Hemoglobin 29.2 pg (25.0-34.0); Mean Corpuscular Hgb Conc 34.9 g/dL (32.0-36.0); Mean Corpuscular Volume 83.6 fL (80.0-100.0); Mean Platelet Volume 9.1 fL (9.4-12.4); Monocytes # (auto) 0.57 K/uL (0.11-0.59); Monocytes % (auto) 9.3 %; Neutrophils # (auto) 4.19 K/uL (1.40-6.50); Neutrophils % (auto) 68.1 %; Platelet Count 148 K/uL (130-400); RDW Coefficient of Variation 13.3 % (11.5-14.5); RDW Standard Deviation 39.8 fL (36.4-46.3); Red Blood Count 4.83 M/uL (4.70-6.10); White Blood Count 6.15 K/ul (4.8-10.8)
[2022-07-29 05:07] LABS: BUN Creatinine Ratio 14.2 (10-20); Calcium 8.5 mg/dl (8.6-10.3); Creatinine Clr Calc Pharmacy 36.1 ml/min; Est GFR (Non-African American) 31.9 ml/min; Magnesium 1.9 mg/dl (1.7-2.4); Potassium 3.6 mmol/L (3.5-5.1)
[2022-07-29] MEDS: INSULIN ASPART PER UNIT CHARGE SC SCH ×4 (07:41→20:49)
[2022-07-29] MEDS: carvediloL 12.5 MG TAB PO SCH ×2 (07:42→16:42)
[2022-07-29] MEDS: POTASSIUM CHLORIDE CRTAB 20 MEQ TABCR PO SCH ×2 (08:46→20:48)
[2022-07-29] MEDS: ROSUVASTATIN CALCIUM 5 MG TAB PO SCH (08:46)
[2022-07-29] MEDS: TICAGRELOR 90 MG TAB PO SCH ×2 (08:46→20:48)
[2022-07-29] MEDS: ASPIRIN 81 MG ECTAB PO SCH (08:47)
[2022-07-29] MEDS: FLUoxetine HCL 20 MG CAP PO SCH (08:47)
[2022-07-29] MEDS: ISOSORBIDE MONO EXTENDED REL 60 MG TABCR PO SCH (08:47)
[2022-07-29] MEDS: CHOLECALCIFEROL 1,000 UNITS 25 MCG TAB PO SCH (08:47)
[2022-07-29] MEDS: FUROSEMIDE 40 MG TAB PO SCH ×2 (08:47→16:42)
[2022-07-29] MEDS: LANTUS PER UNIT CHARGE SQ SCH ×2 (08:52→20:49)
[2022-07-29] MEDS ORDERED: POLYETHYLENE (MIRALAX) 17 GM PACK PO PRN (08:55)
--- NOTE | 2022-07-29 12:32 | Hospitalist Progress Note ---
Date of Service July 29, 2022 Assessment & Plan (1) GUTIERREZ (dyspnea on exertion): Plan: No overt CHF. Cardiology consultation appreciated. Left heart cath completed July 28. He underwent PCI and stenting of the mid LAD lesion. He is currently asymptomatic. Suspect he will eventually be discharged on dual antiplatelet therapy. Continue current medical management for now. Telemetry. (2) Chest pain: Plan: No evidence of acute coronary syndrome. His chest discomfort probably represented unstable angina which has now resolved after the mid LAD lesion has been addressed. No acute EKG changes. Left heart catheterization completed July 28. Appreciate cardiology consultation and recommendations. (3) Weight loss: Plan: 30 lb weight loss over the past 3 months without making any lifestyle or medication changes . CT of the ABD/Pelvis on 10/29/21 without acute findings and without GI symptoms . Non-con CT chest ordered for further evaluation (4) CAD (coronary artery disease): Plan: Continue current medical management. Left heart catheterization completed on . Angioplasty and stent placed to mid LAD lesion (5) DM II (diabetes mellitus, type II), controlled: Plan: Holding Farxiga and Novolin 70/30 . ADA diet. Sliding scale coverage as needed. Basal insulin therapy (6) Diastolic heart failure: Plan: Chronic. Stable. Monitor intake and output. Continue Lasix (7) Moderate COPD (chronic obstructive pulmonary disease): Plan: Stable. Continue current medical management. Chest CT report pending (8) Hypertension: Plan: Stable. Continue current medical management (9) Gout: Plan: Stable. Continue allopurinol (10) Sleep apnea: Plan: Stable. Continue HS CPAP use (11) Dyslipidemia: Plan: Stable. Continue statin (12) CKD (chronic kidney disease): Plan: Stage IIIb. Creatinine 1.9 on admission and up slightly now to 2.1. Will continue IV fluids. Repeat renal function studies again tomorrow, 07/30. Plan Anticipate eventual discharge to home. Hopefully tomorrow, July 30 Admission and Anticipated Discharge Date Admission Date: July 27, 2022 Subjective Alert and oriented. He underwent left heart catheterization yesterday, July 28, and had PCI and stent placement in the mid LAD. Creatinine is up just slightly to 2.1 but he will continue with IV fluids today and will repeat renal function studies tomorrow, July 30. We will maintain IV fluids at 75 cc an hour for now. Case discussed with cardiology Review of Systems Review of Systems: Constitutional-no fever or chills ENT-no blurred vision, no double vision, no epistaxis, no sore throat Respiratory-no cough, no wheezing. Shortness of breath with exertion prompted return to ED Cardiac-no palpitations, no syncope. Recurrent chest discomfort prompted return to ED GI-no nausea, vomiting, diarrhea, melena, hematochezia -no urinary retention, no urinary incontinence, no dysuria, no hematuria Musculoskeletal-no joint pain, no muscle tenderness Skin-no bruising, no rashes, no pruritus Neuro-no isolated weakness, no paresthesia, no weakness Psych-no depression, no anxiety Physical Exam Physical Exam: General-alert and oriented x3, no fevers, no chills HEENT-head atraumatic and normocephalic, pupils equal and reactive to light, extraocular muscles intact Neck-no lymphadenopathy or thyromegaly, trachea midline Chest-clear to auscultation percussion. No rales wheezing or rhonchi Cardiac-regular rate and rhythm, normal S1 and S2 Abdomen-normal bowel sounds, nontender, no hepatosplenomegaly Extremities-no cyanosis, clubbing, or edema Neuro-cranial nerves II through XII intact, motor and sensory function within normal limits, strength symmetrical , no focal deficits Psych-normal affect, normal mood Results & Data Results & Data Vital Signs (Past 12 Hours) Vital Signs Pulse Resp BP Pulse Ox 07/29/22 03:40 73 19 95 07/29/22 03:30 74 20 96 07/29/22 03:30 150/75 H 07/29/22 03:20 75 17 97 07/29/22 03:15 135/73 07/29/22 03:15 72 19 95 07/29/22 03:10 73 20 96 07/29/22 03:00 73 19 96 07/29/22 03:00 140/75 07/29/22 02:50 75 18 97 07/29/22 02:45 137/72 07/29/22 02:45 71 11 L 94 07/29/22 02:40 64 16 95 07/29/22 02:30 71 18 94 07/29/22 02:30 144/73 H 07/29/22 02:20 72 19 94 07/29/22 02:15 137/72 07/29/22 02:15 70 16 94 07/29/22 02:10 69 18 94 07/29/22 02:00 74 19 98 07/29/22 02:00 154/82 H 07/29/22 01:50 72 23 96 07/29/22 01:45 156/95 H 07/29/22 01:45 75 29 H 99 07/29/22 01:40 71 20 98 07/29/22 01:30 71 20 97 07/29/22 01:30 146/81 H 07/29/22 01:20 70 19 97 07/29/22 01:15 68 17 96 07/29/22 01:15 133/76 07/29/22 01:10 73 21 96 07/29/22 01:00 66 18 96 07/29/22 01:00 129/74 07/29/22 00:50 69 14 89 L 07/29/22 00:45 126/73 07/29/22 00:45 67 17 07/29/22 00:40 70 17 83 L 07/29/22 00:30 69 16 92 07/29/22 00:30 140/73 Laboratory Results 07/29/22 04:28 07/29/22 04:28 PG Care Time/CCT Total # of Minutes Spent Total Time Spent with Patient: Total time spent is greater than 50% in coordination of care (as documented) at patient's floor/unit and/or counseling patient: Coding Level of Care Code 89523 SUB INP/OBS CARE 3/50MIN Diagnoses GUTIERREZ (dyspnea on exertion) R06.09 Chest pain R07.9 Weight loss R63.4 CAD (coronary artery disease) I25.10 DM II (diabetes mellitus, type II), controlled E11.9 Diastolic heart failure I50.30 Moderate COPD (chronic obstructive pulmonary disease) J44.9 Hypertension I10 Gout M10.9 Sleep apnea G47.30 Dyslipidemia E78.5 CKD (chronic kidney disease) N18.9
[2022-07-30 06:24] LABS: Hematocrit (blood only) 39.1 % (42.0-52.0); Hemoglobin 13.9 g/dl (14.0-18.0); Mean Corpuscular Hemoglobin 29.6 pg (25.0-34.0); Mean Corpuscular Hgb Conc 35.5 g/dL (32.0-36.0); Mean Corpuscular Volume 83.4 fL (80.0-100.0); Mean Platelet Volume 9.3 fL (9.4-12.4); Platelet Count 145 K/uL (130-400); RDW Coefficient of Variation 13.4 % (11.5-14.5); RDW Standard Deviation 39.6 fL (36.4-46.3); Red Blood Count 4.69 M/uL (4.70-6.10); White Blood Count 5.07 K/ul (4.8-10.8)
[2022-07-30 06:36] LABS: BUN Creatinine Ratio 16.4 (10-20); Calcium 8.7 mg/dl (8.6-10.3); Creatinine Clr Calc Pharmacy 42.7 ml/min; Est GFR (African American) 45.7 ml/min; Est GFR (Non-African American) 39.4 ml/min; Potassium 3.6 mmol/L (3.5-5.1)
[2022-07-30] MEDS: INSULIN ASPART PER UNIT CHARGE SC SCH (08:19)
[2022-07-30] MEDS: LANTUS PER UNIT CHARGE SQ SCH (08:22)
[2022-07-30] MEDS: POTASSIUM CHLORIDE CRTAB 20 MEQ TABCR PO SCH (08:24)
[2022-07-30] MEDS: CHOLECALCIFEROL 1,000 UNITS 25 MCG TAB PO SCH (08:25)
[2022-07-30] MEDS: FLUoxetine HCL 20 MG CAP PO SCH (08:25)
[2022-07-30] MEDS: ISOSORBIDE MONO EXTENDED REL 60 MG TABCR PO SCH (08:25)
[2022-07-30] MEDS: FUROSEMIDE 40 MG TAB PO SCH (08:25)
[2022-07-30] MEDS: ASPIRIN 81 MG ECTAB PO SCH (08:25)
[2022-07-30] MEDS: carvediloL 12.5 MG TAB PO SCH (08:25)
[2022-07-30] MEDS: ROSUVASTATIN CALCIUM 5 MG TAB PO SCH (08:25)
--- NOTE | 2022-07-30 08:51 | Cardiology Progress Note ---
Date of Service July 30, 2022 Assessment & Plan (1) CAD (coronary artery disease): Plan: Status post PCI with drug-eluting stent to the LAD. Tolerated well. Continue dual antiplatelet therapy for at least 1 year. Aspirin 81 mg daily and Brilinta 90 mg p.o. twice daily. If the cost of Brilinta becomes excessive then we could change to Plavix after 30 days therapy. Heart rate is good, his blood pressure is above target. He will remain on guideline directed medical therapy for secondary prevention of coronary disease including aspirin, beta-ponce, and high intensity statin. If tolerated from a kidney standpoint we will resume his losartan later this week. We do need to check an outpatient BMP. Recommend follow-up with Dr. May within 2 weeks of discharge. (2) CKD (chronic kidney disease): Plan: Improved after normal saline IV fluid resuscitation post PCI. Chronic stage III. Follow-up with nephrology. Resume losartan if kidney stable after BMP. (3) Hypertension: Plan: Blood pressure elevated but we have held his ARB. Hopefully he will be able to resume this. Also continue with beta-ponce and isosorbide mononitrate. (4) Dyslipidemia: Plan: High risk (diabetes and coronary disease), high intensity statin therapy is therefore recommended. Currently on rosuvastatin 5 mg daily. We may need to titrate up further given the severity of his coronary disease on his current dose of Crestor. This will be done as an outpatient. Plan At this time the patient is appropriate for discharge from a cardiovascular standpoint. He will need follow-up with nephrology, cardiology, and his primary care provider. In addition, I do recommend BMP be obtained within the next week. If he cannot afford/obtain his Brilinta then he should call the office immediately on Sunday where we can give him free samples and then change him over to Plavix. Admission and Anticipated Discharge Date Admission Date: July 27, 2022 Subjective Patient doing well at this time. No chest pains or shortness of breath. No pain at the access site. Tolerating medications. No events overnight. Review of Systems Review of Systems: As per HPI Physical Exam Constitutional: WD/WN, vitals as above Neck: No JVD Respiratory: normal respiratory effort, lungs clear to auscultation Cardiovascular: RRR, no murmur, no edema Regular rate and rhythm. Musculoskeletal: No edema Neurologic: Cognition intact. Speech fluent. No focal deficits. Psychiatric: A+Ox3, euthymic affect Results & Data Vital Signs (Past 12 Hours) Vital Signs Temp Pulse Pulse Resp BP Pulse Ox O2 Del Method 07/30/22 08:04 36.5 C 69 19 147/75 H 96 Room Air 07/30/22 02:52 36.4 C L 70 16 162/81 H 97 Room Air 07/30/22 01:36 66 07/29/22 22:07 36.5 C 71 16 155/83 H 100 Room Air PG Care Time/CCT Total # of Minutes Spent Total Time Spent with Patient: Total time spent is greater than 50% in coordination of care (as documented) at patient's floor/unit and/or counseling patient: Coding Level of Care Code 83690 SUB INP/OBS CARE 2/35MIN Medical Decision Making Moderate Complexity Diagnoses CAD (coronary artery disease) I25.10 CKD (chronic kidney disease) N18.9 Hypertension I10 Dyslipidemia E78.5
[2022-07-30] MEDS: TICAGRELOR 90 MG TAB PO SCH (09:16)
--- NOTE | 2022-07-30 09:30 | Discharge Summary ---
Date of Service July 30, 2022 Admission HPI Per Admitting Provider Magdiel Ceron is a 67-year-old gentleman with a history significant for CAD, CKD, COPD, type 2 diabetes, hypertension, dyslipidemia, asbestosis, and sleep apnea (no longer on CPAP) who presented to the [facility] ED on 07/27/22 on the recommendation of his Geographic Information Scientist, Dr. May, for onging GUTIERREZ and chest discomfort. Per chart review, the patient had a Cardiac cath at [facility] 10/13/2015 which showed Mid LAD 40 to 50%. Dominant RCA. He was seen by Dr. May on 07/13 for ongoing GUTIERREZ and chest discomfort and had a negative dobutamine stress echo at that time. They discussed the possibility of cardiac cath for further evaluation and the patient was interested. In the ED today the patient's vitals were noted to be stable. Labs including CBC, CMP, 2 high sen trops were WNL. CXR shows cardiomegaly without acute findings. Prior to admission the patient was given 324 mg Aspirin. We were asked to admit for observation due to his high risk Cardiac score and possible cardiac cath. At the time of the exam the patient was sitting in bed in no acute distress with his sitting bedside. He states that he has been having progressive GUTIERREZ and chest discomfort for the past year, since his admission for hypoxia with Covid-19. Over the past 2-3 months his symptoms have been getting progressively worse. At rest he is normally comfortable. 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 When asked, he describes the pain as dull and non-radiating. It will resolve with rest. He is unable to climb a set of stairs or walk 1/2 without getting significantly SOB. He called Dr. May's office today as he experienced right chest pain while sitting down for lunch. He did not take him am medications this morning but take one dose of SL nitro which resolved his symptoms. He states that Dr. May recommended to come to the ED for further assessment and possible admission for heart cath for further evaluation. Of note, he and his confirm that he has unintentionally lost approximately 30 lbs of weight over the past 3 months. He denies any recent medication changes during this time. He smoked 2-3 cigars weekly in the past for approximately 5 years but now only smokes one occasionally. He stopped using HS CPAP approxiamtely 4 years ago as he could not get comoftable with the mask or nasal cannula and woke multiple times a night very thirsty, even while using humidified oxygen. He wishes to be a conditional code with a trial of intubation only, in the event of respiratory failure. Please refer to Dr. Paul's attestation for any changes to the treatment plan Principal Diagnosis Unstable angina Discharge Exam General-alert and oriented x3, no fevers, no chills HEENT-head atraumatic and normocephalic, pupils equal and reactive to light, extraocular muscles intact Neck-no lymphadenopathy or thyromegaly, trachea midline Chest-clear to auscultation percussion. No rales wheezing or rhonchi Cardiac-regular rate and rhythm, normal S1 and S2 Abdomen-normal bowel sounds, nontender, no hepatosplenomegaly Extremities-no cyanosis, clubbing, or edema Neuro-cranial nerves II through XII intact, motor and sensory function within normal limits, strength symmetrical , no focal deficits Psych-normal affect, normal mood Discharge Data Allergies Allergy/AdvReac Type Severity Reaction Status Date / Time ketorolac [From Toradol] Allergy Severe kidney Verified 07/27/22 15:06 failure NSAIDS (Non-Steroidal Allergy Unknown Unknown Verified 07/27/22 15:06 Anti-Inflamma [id number]-[id number] Reductase AdvReac Intermediate Muscle pain Verified 07/27/22 15:06 Inhibitor [Izfekgc-Hjp-Opa Reductase Inhibitor] Consultations 07/27/22 15:30 ED Decision to Admit Stat 07/27/22 16:11 Consult Cardiology Routine Procedures Performed Operation Date: 07/28/22 14:00 Actual Procedures p Cath, Coronaries ONLY (no LV) - Henrry Dasilva MD, PhD s Cineradiography w/Routine Exam - Henrry Dasilva MD, PhD s Drug Eluting Stent SGl Vessel - Henrry Dasilva MD, PhD s Ultrasound Vascular Access - Henrry Dasilva MD, PhD Ordered Studies 07/27/22 16:04 CT chest diagnostic wo con Urgent 07/28/22 12:03 CL Cath Imgs for PACS use only Routine Hospital Course (1) GUTIERREZ (dyspnea on exertion): No overt CHF. Cardiology consultation appreciated. Left heart cath completed on July 28. He underwent PCI and stenting of the mid LAD lesion. He is currently asymptomatic. He will be discharged home today, July 30, on Brilinta and aspirin. He will follow-up with cardiology in 2 weeks. Telemetry while hospitalized. (2) Chest pain: No evidence of acute coronary syndrome. His chest discomfort probably represen duane unstable angina which has now resolved after the mid LAD lesion has been addressed. No acute EKG changes. Left heart catheterization completed on July 28. Appreciate cardiology consultation and recommendations. (3) Weight loss: 30 lb weight loss over the past 3 months without making any lifestyle or medication changes . CT of the ABD/Pelvis on 10/29/21 without acute findings and without GI symptoms . Chest CT scan negative for malignancy (4) CAD (coronary artery disease): Continue current medical management. Left heart catheterization completed on July 28. Angioplasty and stent placed to mid LAD lesion (5) DM II (diabetes mellitus, type II), controlled: Holding Farxiga and Novolin 70/30 . Restart at discharge. ADA diet. Sliding scale coverage as needed. Basal insulin therapy (6) Diastolic heart failure: Chronic. Stable. Monitor intake and output. Continue Lasix (7) Moderate COPD (chronic obstructive pulmonary disease): Stable. Continue current medical management. Chest CT report pending (8) Hypertension: Stable. Continue current medical management (9) Gout: Stable. Continue allopurinol (10) Sleep apnea: Stable. Continue HS CPAP use (11) Dyslipidemia: Stable. Continue statin (12) CKD (chronic kidney disease): Stage IIIb. Creatinine 1.9 on admission and up slightly now to 2.1. Will continue IV fluids. Repeat renal function studies again tomorrow, 07/30. Plan Home todayJuly 30 Total Time Total Time Spent Total Time Spent (In Minutes): 40 minutes Discharge Plan Discharge Items Patient Disposition: Home - Self-Care Reason For Visit: GUTIERREZ, CHEST DISCOMFORT Discharge Diagnosis: unstable angina CAD coronary stent Condition on Discharge: Good Activity: Per Instructions section Non-emergency contact: Geographic Information Scientist Call non-emergency contact if: you have any medication questions, your symptoms worsen, your pain is not controlled, you have a fever, your wound has increased redness and your wound has increased drainage Follow-up/Referrals: Narciso Loo MD [Primary Care Provider] - Lg May MD [Physician] - (needs to followup with Dr May within 2 weeks post cath/PCI) Diet: Carb Consistent or DM2 and Heart Healthy Addtl Attending Provider Instructions: ACTIVITY RECOMMENDATIONS: It is common to feel weak and fatigue for a few days. * Do not drive or operate any motorized equipment for the next three days. * Limit stair usage (2 or 3 trips a day only) for the next three days. * Do not lift anything heavier than 10 pounds for the next three days. * Do not engage in vigorous exercise or any sports for the next five days. * You may shower the day after your procedure, but do not immerse the area for three days. Cleanse the site gently with soap and water. SPECIAL CARE INSTRUCTIONS: * You may replace the pressure dressing or band-aid the morning after the procedure. * After your procedure, it is normal to have a small bruise or small lump at the site. Examine your site daily for any change in the bruise or lump, redness, swelling, drainage or numbness. Notify your doctor if any change. BLEEDING: * If there is a small amount of bleeding at the site, lie down and apply firm pressure with a clean cloth for ten minutes. When the bleeding stops, lie quietly keeping the procedure limb straight for six hours. Notify your doctor as soon as possible. * If the bleeding does not stop after ten minutes or if there is a large amount of bleeding or spurting, call 911 immediately. Continue to lie down and hold firm pressure until help arrives. SKIN IRRITATION: * You may experience some redness and/or swelling in the area where radiation was administered. If any skin irritation occurs, please contact your family physician. FOLLOW UP VISIT: Keep any scheduled doctor appointments. Pending Studies at Discharge: No Stand-Alone Forms: My [employer] [facility], Smoking Cessation Medications and DC Order Prescriptions: New Brilinta 90 mg Tablet 90 mg PO BID Qty: 60 11RF Continued allopurinol 100 mg tablet 200 mg PO BID Qty: 360 3RF (DME) insulin syringe-needle U-100 [BD Insulin Syringe Ultra-Fine] 0.3 mL 31 gauge x 5/16" syringe See Rx Instructions .Route Qty: 200 3RF Rx Instructions: use to give insulin BID ferrous sulfate 325 mg (65 mg iron) tablet 325 mg PO QAM Qty: 30 11RF furosemide 40 mg tablet 40 mg PO BID Qty: 60 11RF rosuvastatin 5 mg tablet 5 mg PO QAM Qty: 100 1RF (DME) blood-glucose meter [OneTouch Verio Flex meter] Misc See Rx Instructions .Route Qty: 1 0RF Rx Instructions: test blood sugar three times a day (DME) OneTouch Verio test strips Strip See Rx Instructions .Route Qty: 300 3RF Rx Instructions: test blood sugars three times a day (DME) lancets [OneTouch Delica Lancets] 30 gauge misc See Rx Instructions .Route Qty: 300 3RF Rx Instructions: test blood sugars three times a day Farxiga 10 mg tablet 10 mg PO DAILY Qty: 30 5RF fluoxetine 40 mg capsule 40 mg PO QAM Qty: 30 5RF carvedilol 12.5 mg tablet 12.5 mg PO BID Qty: 60 0RF aspirin 81 mg tablet,delayed release (DR/EC) 81 mg PO DAILY Qty: 90 3RF isosorbide mononitrate 120 mg tablet extended release 24 hr 240 mg PO QAM Qty: 180 3RF cholecalciferol (vitamin D3) 25 mcg (1,000 unit) capsule 25 mcg PO QAM Novolin 70/30 U-100 Insulin 100 unit/mL (70-30) suspension 0 unit subcut DIRECTED PRN (Reason: BSG CONTROL) Rx Instructions: PER PT "ONLY TAKE IF NEEDED TO CONTROL BSG". 40-50units at bedtime; adjust according to bsgs potassium chloride 20 mEq tablet extended release See Rx Instructions .ROUTE .COMPLEX Rx Instructions: 2 tablets each morning and 1 tablet in the evening Held losartan 25 mg tablet 25 mg PO DAILY Qty: 90 3RF Hold Instructions: Resume on 08/02/22. Discontinued metolazone 5 mg tablet 5 mg PO DIRECTED PRN (Reason: weight gain) Qty: 20 1RF Hold Instructions: Home Medication placed on hold at Doctor's office Rx Instructions: 1 tab 20 min before lasix as needed (AM weight >231 lbs). Max two tablets weekly ondansetron 4 mg tablet,disintegrating 4 mg PO Q8H PRN (Reason: nausea and vomiting) Qty: 30 0RF nitroglycerin 0.4 mg tablet, sublingual 0.4 mg sublingual Q5M PRN (Reason: chest pain) Qty: 25 0RF Discharge Orders: Discharge Order (Routine); Ordered 07/30/22 Ordered By: Henrry Dasilva Discharge Order- CHF (Routine); Ordered 07/30/22 Ordered By: Silas Lan Admission Data Admit Date/Time: 07/27/22 15:42 Attending Provider: Silas Lan Admit Provider: Luis Paul Primary Care Provider: Narciso Loo Other Providers: Luis Paul ; Ranjit Troy Other Interventions: Discharge Summary Assessment (RN) Last Done: 07/30/22 09:20 Coding Level of Care Code 77771 INP/OBS DISCH >30 MIN Diagnoses GUTIERREZ (dyspnea on exertion) R06.09 Chest pain R07.9 Weight loss R63.4 CAD (coronary artery disease) I25.10 DM II (diabetes mellitus, type II), controlled E11.9 Diastolic heart failure I50.30 Moderate COPD (chronic obstructive pulmonary disease) J44.9 Hypertension I10 Gout M10.9 Sleep apnea G47.30 Dyslipidemia E78.5 CKD (chronic kidney disease) N18.9
== END 2022-07-30 09:45 | disposition home or self-care (01) ==
LOC: EDINP 10:06 → ED 10:06 → SUATTDRO 15:42 → 2N 17:22 → 1E 07-28 16:08 → 2E 07-29 22:04
PROC: CLB.CCO (2022-07-28 14:00)

== ENCOUNTER 2023-08-07 10:08 | Observation (INO) ==
[2023-08-07 10:54] LABS: Basophils # (auto) 0.01 K/uL (0.00-0.20); Basophils % (auto) 0.2 %; Eosinophils # (auto) 0.05 K/uL (0.00-0.50); Hematocrit (blood only) 49.7 % (42.0-52.0); Hemoglobin 17.1 g/dl (14.0-18.0); Immature Granulocytes # (auto) 0.05 K/uL (0.01-0.20); Lymphocytes # (auto) 0.81 K/uL (1.20-3.40); Lymphocytes % (auto) 15.8 %; Mean Corpuscular Hemoglobin 28.1 pg (25.0-34.0); Mean Corpuscular Hgb Conc 34.4 g/dL (32.0-36.0); Mean Corpuscular Volume 81.6 fL (80.0-100.0); Mean Platelet Volume 9.6 fL (9.4-12.4); Monocytes # (auto) 1.02 K/uL (0.11-0.59); Monocytes % (auto) 19.8 %; Neutrophils % (auto) 62.2 %; Platelet Count 110 K/uL (130-400); RDW Coefficient of Variation 14.5 % (11.5-14.5); RDW Standard Deviation 41.1 fL (36.4-46.3); Red Blood Count 6.09 M/uL (4.70-6.10); White Blood Count 5.14 K/ul (4.8-10.8)
[2023-08-07 11:06] LABS: Albumin Globulin Ratio 1.1 (0.9-2); Albumin Level 4.2 gm/dl (3.4-5.0); BUN Creatinine Ratio 11.8 (10-20); Bilirubin,Total 2.4 mg/dl (0.2-1.0); Calcium 9.1 mg/dl (8.6-10.3); Creatinine Clr Calc Pharmacy 38.7 ml/min; Est GFR (African American) 40.4 ml/min; Est GFR (Non-African American) 34.8 ml/min; Globulin 3.7 gm/dl (2.5-4.0); Potassium 4.1 mmol/L (3.5-5.1); Total Protein 7.9 gm/dl (6.0-8.3)
--- NOTE | 2023-08-07 11:14 | XRay Report ---
SINGLE VIEW CHEST CLINICAL HISTORY: Dyspnea FINDINGS: A PA chest radiograph is compared to study dated 11/08/2022 and correlated with chest CT junior ed 07/27/2022. The heart is enlarged. The pulmonary vasculature is noncontrast. The lungs and pleural s paces are clear. No pneumothorax is seen. The bony thorax is grossly intact. A left shoulder arthropl asty is in place. Fusion hardware is noted in the cervical spine. IMPRESSION: Cardiomegaly with no active disease in the chest. ACT 112: Negative or not required by law. Electronically signed by: Jose Dumont M.D. 08/07/2023 11:13 AM
--- NOTE | 2023-08-07 12:03 | Electrocardiogram Report ---
Test Reason : Blood Pressure : / mmHG Vent. Rate : 088 BPM Atrial Rate : 088 BPM P-R Int : 178 ms QRS Dur : 112 ms QT Int : 368 ms P-R-T Axes : 021 071 052 degrees QTc Int : 445 ms Normal sinus rhythm Incomplete right bundle branch block Borderline ECG When compared with ECG of 08-NOV-2022 13:35, Minimal criteria for Anterior infarct are no longer Present Confirmed by Narciso Hurtado ([id number]) on 08/07/2023 12:03:22 PM Referred By: Confirmed By:Nicko Hurtado
--- NOTE | 2023-08-07 12:05 | Emergency Department Note ---
Impression & Plan Chest pain, Elevated troponin, Cough ED Provider Note NAME: PRAMOD DELCID AGE: 68 SEX: M : 1955 ARRIVES VIA: Walk-In INFORMANT: Patient ED PROVIDER(S): Faisal Stoll DO CHIEF COMPLAINT: weak, cough, runny nose, sore throat HPI: Patient is a 68-year-old male with a past medical history of obesity, diabetes, CAD, CKD, COPD who presents to the ER for cough, runny nose, and a sore throat. Symptoms initially started 2 to 3 days ago. Cough has been getting worse today. He noted some pain with coughing today which lasted for about an hour. He did have some shortness of breath with it. No belly pain but does admit to some nausea and is not hungry. He feels very weak and rundown. He notes this feels very similar to the previous time he had COVID. No dysuria, urgency, or frequency. No other exacerbating or remitting factors. ADDITIONAL HISTORY OBTAINED: Per HPI Chronic Medical/Social Conditions Affecting Care: Per HPI PAST MEDICAL HISTORY:See Below PAST SURGICAL HISTORY:See Below FAMILY HISTORY:See Below SOCIAL HISTORY:See Below HOME MEDICATIONS:See Below ALLERGIES:See Below VITALS:See Below PHYSICAL EXAMINATION: GENERAL: Sitting up in bed, alert, well appearing, well nourished, no distress, non-toxic EYE EXAM: normal conjunctiva. OROPHARYNX: mucous membranes are moist NECK: supple, no nuchal rigidity, no adenopathy, non-tender LUNGS: Clear to auscultation. Normal chest wall mechanics HEART: no murmurs, S1 normal and S2 normal ABDOMEN: abdomen soft, non-tender, normo-active bowel sounds, no masses, no rebound or guarding. UPPER EXTREMITIES: upper extremities are grossly normal. LOWER EXTREMITIES: Calves are equal bilaterally NEURO EXAM: Normal sensorium, cranial nerves II-XII grossly intact, normal speech, no gross weakness of arms, no gross weakness of legs. MEDICAL DECISION MAKING: Patient is a 68-year-old male who presents the ER for the above-stated complaint. IV was established blood work was obtained. Labs show no significant leukocytosis or anemia. Mild thrombocytopenia at 110. D-dimer was up at 900. CT angio was consequently performed and was negative. BMP with a hyponatremia 132. Creatinine 1.9 fairly consistent with previous. BMP only with slightly elevated bilirubin at 2.4 fairly consistent with previous. Repeat troponin trended down. He was having chest pain intermittently through this episode. Question if this is ACS. Viral panel was negative. CT angio of the chest shows no PEs. Patient was given IV fluids and updated at bedside and discussed with hospitalist for further evaluation management treatment. EKG without STEMI. Consults/Care Managements Discussions: Per [facility] Triage Nursing notes reviewed. Limited review of prior medical records performed Vital Signs: reviewed and remarkable for no significant abnormalities Differential diagnosis: Infection, dehydration, metabolic abnormality, hypo/hyperglycemia, electrolyte disturbance, anemia, hypoxia, cardiac sources, intracerebral event, toxicologic, neurologic, as well as other pathologies. ER treatment provided: See below Diagnostics interpreted by me include EKG and cardiac monitoring as listed below: -ECG: Sinus rhythm rate 88 Normal axis No PVCs QTc 445 -Laboratory studies:Interpreted by me as stated above in MDM and shown below. Imaging studies: Xrays: As interpreted by me: Portable AP upright 1 view of the chest shows no focal infiltrate CTs show: CT angio of the chest shows no PEs Procedures:none Critical Care: None Past Med/Surg History Problem List (Updated 08/07/23 @ 17:21 by Faisal Stoll DO) Cough (Acute) Elevated troponin (Acute) Chest pain (Acute) Acute bronchitis, viral Class 2 obesity due to excess calories with body mass index (BMI) of 36.0 to 36.9 in adult Hypovitaminosis D Diabetes mellitus with cardiac complication CAD (coronary artery disease) CKD (chronic kidney disease) (Chronic) Hyperglycemia (Acute) Hyponatremia (Acute) Moderate COPD (chronic obstructive pulmonary disease) Nonobstructive atherosclerosis of coronary artery H/O cardiomyopathy GUTIERREZ (dyspnea on exertion) (Acute) Fatty liver (Chronic) Hypertension Fusion of spine C4-7 ACDF Ljfhd-0-ruokvtrlzwl deficiency Anemia of chronic disease Splenomegaly (Acute) Sensorineural hearing loss (SNHL) of both ears (Acute) Sleep apnea Dyslipidemia Asbestosis Diastolic heart failure Poorly controlled diabetes mellitus Medical History Acute renal failure CAD (coronary artery disease) Cervical radiculopathy Chest pain Chronic kidney disease, stage 3b Diabetic nephropathy associated with type 2 diabetes mellitus Diverticular disease Epicondylitis, lateral, left Fatty liver Glaucoma Gout Pancreatitis Pulmonary nodules Surgical History Fusion of spine H/O cervical spine surgery H/O elbow surgery History of cardiac cath History of colonoscopy History of esophagogastroduodenoscopy (EGD) History of tonsillectomy S/P Achilles tendon repair S/P wrist surgery Family History Grandmother Family history of diabetes mellitus Uncle Family history of diabetes mellitus Father COPD (chronic obstructive pulmonary disease) Lung disease Mother Hypertension Aunt Colorectal cancer Denies family history of Ovarian cancer Prostate cancer Myocardial infarction Breast cancer Social History Smoking Status: Never smoker Tobacco Type: Cigars Cigarettes Per Day: Rare cigar smoker, ~1x month; Second Hand Exposure: No; Do You Dip or Chew Tobacco: No; Hx Alcohol Use: No Hx Substance Use: No Preferred Language: Guinean Communication Ability: Effective Visual Impairment: No Limitations Hearing Ability: Hard of Hearing Ship Scaler Required: No Beliefs That Will Affect Care: None marital status: Current Living Situation: Spouse Current Living Situation Comment: home w spouse current occupational status: employed and disabled 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 [employer] Feels Safe at Home: Yes Childhood Exposure to Second-Hand Smoke: Yes Diet: diabetic, low salt and regular caffeine: Yes (very rare) during the past year weight has: remained stable Dental Care, Regularly: No Physical Activity Frequency: Does not Exercise Seatbelt Use: always Sunscreen Use: No Assistive Devices: None Allergies Allergies Allergy/AdvReac Type Severity Reaction Status Date / Time ketorolac [From Toradol] Allergy Severe kidney Verified 06/29/23 13:52 failure NSAIDS (Non-Steroidal Allergy Unknown Unknown Verified 06/29/23 13:52 Anti-Inflamma Alnczrf-GBC-MuF Reductase AdvReac Intermediate Muscle pain Verified 06/29/23 13:52 Inhibitor [Jazdexe-Kba-Owb Reductase Inhibitor] Home Meds Home Medications Medication Instructions Recorded Confirmed nitroglycerin 0.4 mg sublingual See Rx Instructions .Route .COMPLEX 11/08/22 08/07/23 tablet insulin human U-100 NPH-regulr 70 unit subcut QDD 08/07/23 08/07/23 70-30 mix 100 unit/mL subcutaneous susp (Novolin 70/30 U-100 Insulin) Previous Rx's Medication Instructions Recorded allopurinol 100 mg tablet 200 mg (2 x 100 mg) PO BID #360 06/23/20 tabs insulin syringe-needle U-100 0.3 #200 ea 07/01/21 mL 31 gauge x 5/16" (BD Insulin Syringe Ultra-Fine) blood-glucose sensor (FreeStyle #2 ea 09/25/22 Peace 3 Sensor device) carvedilol 12.5 mg tablet 12.5 mg PO BID #200 tabs 09/25/22 clopidogrel 75 mg tablet (Plavix) 75 mg PO DAILY #100 tabs 09/25/22 isosorbide mononitrate 120 mg 240 mg (2 x 120 mg) PO QAM #200 09/25/22 tablet,extended release 24 hr tabs losartan 25 mg tablet 25 mg PO DAILY #100 tabs 09/25/22 furosemide 40 mg tablet 40 mg PO BID #200 tabs 09/28/22 potassium chloride 20 mEq 20 meq PO .COMPLEX #300 tabs 09/28/22 tablet,extended release dapagliflozin propanediol 10 mg 10 mg PO DAILY #90 tabs 09/29/22 tablet (Farxiga) metolazone 5 mg tablet 5 mg PO DAILY PRN Fluid Retention 02/19/23 #30 tabs OneTouch Verio test strips (blood #300 ea 05/29/23 sugar diagnostic) lancets 30 gauge #300 ea 05/29/23 fluoxetine 40 mg capsule 40 mg PO QAM #90 caps 06/26/23 Results & Data (ED) Vital Signs Vital Signs - 24 hr 08/07/23 10:18 08/07/23 14:00 08/07/23 16:01 Temperature 36.6 C Temperature Source Temporal Artery Scan Pulse Rate 94 H Pulse Rate [Right Finger] 84 86 Pulse Rhythm [Right Finger] Regular Respiratory Rate 15 16 19 Respiratory Depth Normal Blood Pressure 125/84 Blood Pressure [Right Arm] 166/85 H 157/86 H Blood Pressure Mean 97 Blood Pressure Mean [Right Arm] 112 109 Pulse Oximetry 97 92 96 Oxygen Delivery Method Room Air Room Air Room Air Sepsis Recent Fever Within 48 Hours No Sepsis New/Unexplained Change in Mental Status No Sepsis Action Taken by Nursing No Action Required Laboratory Data 08/07/23 10:30 08/07/23 10:30 Lab Results 08/07/23 08/07/23 08/07/23 Range/Units 10:30 15:00 Unknown WBC 5.14 (4.8-10.8) K/ul RBC 6.09 (4.70-6.10) M/uL Hgb 17.1 (14.0-18.0) g/dl Hct 49.7 (42.0-52.0) % MCV 81.6 (80.0-100.0) fL MCH 28.1 (25.0-34.0) pg MCHC 34.4 (32.0-36.0) g/dL RDW Std Deviation 41.1 (36.4-46.3) fL RDW Coeff of Junito 14.5 (11.5-14.5) % Plt Count 110 L (130-400) K/uL MPV 9.6 (9.4-12.4) fL Immature Gran % (Auto) 1.0 % Neut % (Auto) 62.2 % Lymph % (Auto) 15.8 % Izard % (Auto) 19.8 % Eos % (Auto) 1.0 % Baso % (Auto) 0.2 % Neut # (Auto) 3.20 (1.40-6.50) K/uL Lymph # (Auto) 0.81 L (1.20-3.40) K/uL Izard # (Auto) 1.02 H (0.11-0.59) K/uL Eos # (Auto) 0.05 (0.00-0.50) K/uL Baso # (Auto) 0.01 (0.00-0.20) K/uL Immature Gran # (Auto) 0.05 (0.01-0.20) K/uL D-Dimer 900 H* (0-500) ug/L FEU Sodium 132 L (136-145) mmol/L Potassium 4.1 (3.5-5.1) mmol/L Chloride 94 L (98-107) mmol/L Carbon Dioxide 28 (21-32) mmol/L Anion Gap 10 (3-11) BUN 23 (6-23) mg/dl Creatinine 1.95 H (0.6-1.4) mg/dl Est Cr Clr Drug Dosing 38.7 ml/min Est GFR ( Amer) 40.4 ml/min Est GFR (Non-Af Amer) 34.8 ml/min BUN/Creatinine Ratio 11.8 (10-20) Glucose 282 H (70-99(Fasting)) mg/dl Calcium 9.1 (8.6-10.3) mg/dl Total Bilirubin 2.4 H (0.2-1.0) mg/dl AST 21 (13-39) U/L ALT 12 (7-52) U/L Alkaline Phosphatase 105 H (34-104) U/L Troponin I High Sens 27.8 H 18.5 D (0-20) pg/ml Total Protein 7.9 (6.0-8.3) gm/dl Albumin 4.2 (3.4-5.0) gm/dl Globulin 3.7 (2.5-4.0) gm/dl Albumin/Globulin Ratio 1.1 (0.9-2) Adenovirus (PCR) Not Detected (NotDetected) B. pertussis DNA (PCR) Not Detected (NotDetected) B.parapertussis DNA PCR Not Detected (NotDetected) C. pneumoniae DNA (PCR) Not Detected (NotDetected) Coronavirus OC43 (PCR) Not Detected (NotDetected) Coronavirus HKU1 (PCR) Not Detected (NotDetected) Coronavirus 229E (PCR) Not Detected (NotDetected) SARS-CoV-2 (PCR) Not Detected (NotDetected) Coronavirus NL63 (PCR) Not Detected (NotDetected) Human Metapneumovir PCR Not Detected (NotDetected) Influenza Type A (PCR) Not Detected (NotDetected) Influenza Type B (PCR) Not Detected (NotDetected) M. pneumoniae (PCR) Not Detected (NotDetected) Parainfluenza 1 (PCR) Not Detected (NotDetected) Parainfluenza 2 (PCR) Not Detected (NotDetected) Parainfluenza 3 (PCR) Not Detected (NotDetected) Parainfluenza 4 (PCR) Not Detected (NotDetected) RSV (PCR) Not Detected (NotDetected) Entero/Rhino (PCR) Not Detected (NotDetected) Administered Medications Discontinued Medications Sodium Chloride (Nss) 500 mls @ 999 mls/hr IV .Q31M ONE Stop: 08/07/23 12:31 Last Infusion: 08/07/23 12:37 Dose: Infused Documented By: Admin: 08/07/23 12:14 Dose: 999 mls/hr Documented By: FLORIDALMA Ioversol (Optiray 320 125ml) 70 ml IV ONCE ONE Stop: 08/07/23 14:35 Last Admin: 08/07/23 14:34 Dose: 70 ml Documented By: GREG Imaging Data Radiologist's Impression: Chest X-Ray 08/07/23 10:22 SINGLE VIEW CHEST CLINICAL HISTORY: Dyspnea FINDINGS: A PA chest radiograph is compared to study dated 11/08/2022 and correlated with chest CT dated 07/27/2022. The heart is enlarged. The pulmonary vasculature is noncontrast. The lungs and pleural spaces are clear. No pneumothorax is seen. The bony thorax is grossly intact. A left shoulder arthroplasty is in place. Fusion hardware is noted in the cervical spine. IMPRESSION: Cardiomegaly with no active disease in the chest. ACT 112: Negative or not required by law. Electronically signed by: Jose Dumont M.D. 08/07/2023 11:13 AM Chest CTA 08/07/23 14:13 CT ANGIOGRAPHY OF THE CHEST, PULMONARY EMBOLUS PROTOCOL CLINICAL HISTORY: Chest pain. Shortness of breath. Evaluate for pulmonary embolus. COMPARISON STUDY: Chest CT July 27, 2022. Chest radiograph performed earlier today. TECHNIQUE: Following IV administration of 70 mL of Optiray, helical axial images of the chest were obtained utilizing the pulmonary embolus protocol. Maximal intensity projections and sagittal and coronal reformats were viewed on an independent 3D workstation. IV contrast was administered without complication. Automated exposure control was utilized for the study. A dose lowering technique was utilized adhering to the principles of ALARA. FINDINGS: There are no pulmonary emboli. No thoracic aortic dissection is present. Mild cardiomegaly and moderate to extensive coronary artery calcification. There is no pericardial effusion. No pneumothorax or pleural effusion is present. There is no consolidation to suggest pneumonia. No acute fractures within the bony thorax are noted. Splenomegaly within the upper abdomen is again visualized. This was shown on CT of July 27, 2022. IMPRESSION: 1. No pulmonary emboli identified. 2. No acute intrathoracic findings. 3. Moderate to extensive coronary artery calcification. 4. Stable splenomegaly. ACT 112: Negative or not required by law. Electronically signed by: Mathew Castanon M.D. 08/07/2023 2:52 PM Discharge Plan Visit Data Chief Complaint: Lethargic Stated Complaint: VERY TIRED/NO APPETITE/SLEEPING ALOT ED Provider: Faisal Stoll Discharge Problem: Chest pain, Elevated troponin, Cough Forms Stand Alone Forms: My [facility] [employer] Prescriptions Prescriptions: No Action allopurinol 100 mg tablet 200 mg PO BID Qty: 360 3RF (DME) insulin syringe-needle U-100 [BD Insulin Syringe Ultra-Fine] 0.3 mL 31 gauge x 5/16" syringe See Rx Instructions .Route Qty: 200 3RF Rx Instructions: use to give insulin BID losartan 25 mg tablet 25 mg PO DAILY Qty: 100 2RF Hold Instructions: Resume on 08/02/22. clopidogrel [Plavix] 75 mg tablet 75 mg PO DAILY Qty: 100 2RF isosorbide mononitrate 120 mg tablet extended release 24 hr 240 mg PO QAM Qty: 200 2RF (DME) FreeStyle Peace 3 Sensor Device See Rx Instructions .ROUTE .MEDSUPPLY Qty: 2 11RF Rx Instructions: As directed to monitor blood sugars; change sensor every 14 days carvedilol 12.5 mg tablet 12.5 mg PO BID Qty: 200 3RF furosemide 40 mg tablet 40 mg PO BID Qty: 200 2RF potassium chloride 20 mEq tablet extended release 20 meq PO .COMPLEX Qty: 300 2RF Rx Instructions: 2 tablets AM and 1 tablet in the PM; metolazone 5 mg tablet 5 mg PO DAILY PRN (Reason: Fluid Retention) Qty: 30 3RF Rx Instructions: PRN weight gain >3 lbs in 24 hours or weight >204 lbs (DME) lancets 30 gauge misc See Rx Instructions .Route Qty: 300 3RF Rx Instructions: test blood sugars three times a day (DME) OneTouch Verio test strips Strip See Rx Instructions .Route Qty: 300 3RF Rx Instructions: test blood sugars three times a day fluoxetine 40 mg capsule 40 mg PO QAM Qty: 90 3RF Farxiga 10 mg tablet 10 mg PO DAILY Qty: 90 3RF nitroglycerin 0.4 mg tablet, sublingual See Rx Instructions .ROUTE .COMPLEX Rx Instructions: as directed Novolin 70/30 U-100 Insulin 100 unit/mL (70-30) suspension 70 unit SQ QDD Referrals Referrals: Qamar Handy DO [Primary Care Provider] - Discharge Problem: Chest pain Qualifiers: Chest pain type: unspecified Qualified Code(s): R07.9 - Chest pain, unspecified Cough Qualifiers: Cough type: unspecified Qualified Code(s): R05.9 - Cough, unspecified
[2023-08-07] MEDS: SODIUM CHLORIDE 0.9% 500 ML IV ONE (12:14)
[2023-08-07 13:29] LABS: Adenovirus PCR Not Detected (NotDetected); Bordetella parapertussis PCR Not Detected (NotDetected); Bordetella pertussis PCR Not Detected (NotDetected); Chlamydia pneumoniae PCR Not Detected (NotDetected); Coronavirus 229E PCR Not Detected (NotDetected); Coronavirus CoV-2 (COVID19)PCR Not Detected (NotDetected); Coronavirus HKU1 PCR Not Detected (NotDetected); Coronavirus NL63 PCR Not Detected (NotDetected); Coronavirus OC43PCR Not Detected (NotDetected); Human Metapneumovirus PCR Not Detected (NotDetected); Influenza A PCR Not Detected (NotDetected); Influenza B PCR Not Detected (NotDetected); Mycoplasma pneumoniae PCR Not Detected (NotDetected); Parainfluenza Virus 1 PCR Not Detected (NotDetected); Parainfluenza Virus 2 PCR Not Detected (NotDetected); Parainfluenza Virus 3 PCR Not Detected (NotDetected); Parainfluenza Virus 4 PCR Not Detected (NotDetected); Respiratory Syncytial VirusPCR Not Detected (NotDetected); Rhinovirus/Enterovirus PCR Not Detected (NotDetected)
[2023-08-07 14:11] LABS: D Dimer 900 ug/L FEU (0-500)
[2023-08-07] MEDS: OPTIRAY 320 125ml IV ONE (14:34)
--- NOTE | 2023-08-07 14:53 | CT Scan Report ---
CT ANGIOGRAPHY OF THE CHEST, PULMONARY EMBOLUS PROTOCOL CLINICAL HISTORY: Chest pain. Shortness of breath. Evaluate for pulmonary embolus. COMPARISON STUDY: Chest CT July 27, 2022. Chest radiograph performed earlier today. TECHNIQUE: Following IV administration of 70 mL of Optiray, helical axial images of the chest were ob tained utilizing the pulmonary embolus protocol. Maximal intensity projections and sagittal and donovan nal reformats were viewed on an independent 3D workstation. IV contrast was administered without com plication. Automated exposure control was utilized for the study. A dose lowering technique was uti lized adhering to the principles of ALARA. FINDINGS: There are no pulmonary emboli. No thoracic aortic dissection is present. Mild cardiomegaly and moderate to extensive coronary artery calcification. There is no pericardial effusion. No pneumo thorax or pleural effusion is present. There is no consolidation to suggest pneumonia. No acute fract ures within the bony thorax are noted. Splenomegaly within the upper abdomen is again visualized. Thi s was shown on CT of July 27, 2022. IMPRESSION: 1. No pulmonary emboli identified. 2. No acute intrathoracic findings. 3. Moderate to extensive coronary artery calcification. 4. Stable splenomegaly. ACT 112: Negative or not required by law. Electronically signed by: Mathew Castanon M.D. 08/07/2023 2:52 PM
[2023-08-07 14:59] LABS: Troponin I High Sensitivity 27.8 pg/ml (0-20)
--- NOTE | 2023-08-07 15:49 | History & Physical Report ---
Date of Service August 07, 2023 Assessment & Plan (1) Dyspnea: Plan: Dyspnea No hypoxia Bio fire negative No leukocytosis CTA clear - No wheezing on exam No signs of infectious pathology on initial workup. DDx includes viral URI/cough (2) Chest pain: Plan: Chest pain, history of CAD with PCI to LAD Patient with exertional chest pain which resolves at rest, new in the last week and similar to prior to receiving his LAD stent EKG is without acute ischemic findings, does redemonstrate a incomplete right bundle branch block which has been intermittently present on past EKGs Last cardiac catheterization 09/2022. Nonobstructive CAD with 50 to 60% ostial/proximal D1, 30 to 40% early mid LAD with widely patent past LAD stent. No high risk disease noted at that time - Initial troponin 27.8, repeat troponin normalized/downtrended Discussed w/ cards. dobutamine stress echo tomorrow morning Nitro on-call for chest pain, does not show signs of ACS on admission Continue carvedilol/Plavix. Patient is statin intolerant due to myalgias Patient does not show signs of acute on chronic CHF, and there is no pulmonary edema on CT (3) DM II (diabetes mellitus, type II), controlled: Plan: DM2 Type II DM diet Patient on 70 units TDD of insulin at home, he has been converted to basal bolus while inpatient Heart healthy type II DM diet (4) CKD (chronic kidney disease), stage III: Plan: CKD Creatinine baseline approximately 1.62.1 Admitting creatinine 1.95 Trend BMP daily (5) BPH loc w urin obs/LUTS: Plan: Bladder scan as needed Plan DVT prophylaxis: SCDs Diet HH DM2. NPO 0000 CODE: CC, no compressions dispo: M/T History of Present Illness Primary Care Provider: Qamar Handy DO Patient is a 68-year-old male with a past medical history of CAD, COPD, alpha-1 antitrypsin deficiency, diastolic heart failure, poorly controlled DM who presents to the ER with mildly increase dry cough and dyspnea with a worsening cough over the last day. Patient reports he feels weak and similar to when he p reviously had COVID. He is not hypoxic. In the ER he does not have a leukocytosis, he has a creatinine of 1.95 which is within his normal baseline of approximately 1.62.1, is hyperglycemic at 282 w ith a history of poorly controlled diabetes, has a negative bio fire, and had a CTA which shows no PE/no acute intrathoracic findings/moderate to extensive coronary calcification/stable splenomegaly. He has a high sensitive troponin of 27.8 with repeat pending EKG which shows normal sinus rhythm with an incomplete bundle branch block which was previously seen 06/2022. Patient seen at bedside. Reports he has had an intermittent dry cough which is worse than normal in the last week. Initially reported on signout that he had sinus congestion and URI symptoms, Magdiel reports that this is not true. Other than a dry cough he has not had any sinus congestion, sputum production, or wheezing. He notes that occasionally because on exertion he gets more short of breath than usual in the last week, and if he tries to push through this he has a pressure-like chest discomfort in his middle/left chest similar to before getting his LAD stent and which is new in the last week. He reports he has not had chest pain like this exertionally since his stent was placed. His pain does go away with rest after at most around 20 to 30 minutes. He is currently chest pain-free and last episode of chest discomfort was last night. He reports she has had sweats, and did wake up feeling chilly yesterday. He has not had any abdominal pain, dysuria, rashes, leg swelling, sputum production, headache, or vision change. He does not feel like he has an infection but does feel little short of breath and is worried about the chest pain. He did not take his Plavix this morning. Medical History: Reviewed Medications: Reviewed Surgical History: Reviewed Family history: Reviewed Allergies: Reviewed Social History: Reviewed Code Status: Full Allergies Allergy/AdvReac Type Severity Reaction Status Date / Time ketorolac [From Toradol] Allergy Severe kidney Verified 06/29/23 13:52 failure NSAIDS (Non-Steroidal Allergy Unknown Unknown Verified 06/29/23 13:52 Anti-Inflamma Oazrrob-BCB-NzV Reductase AdvReac Intermediate Muscle pain Verified 06/29/23 13:52 Inhibitor [Icywict-Pyl-Tfs Reductase Inhibitor] Home Medications Medication Instructions Recorded Confirmed Type allopurinol 100 mg tablet 200 mg (2 x 100 mg) PO BID #360 06/23/20 08/07/23 Rx tabs insulin syringe-needle U-100 0.3 #200 ea 07/01/21 08/07/23 Rx mL 31 gauge x 5/16" (BD Insulin Syringe Ultra-Fine) blood-glucose sensor (FreeStyle #2 ea 09/25/22 08/07/23 Rx Peace 3 Sensor device) carvedilol 12.5 mg tablet 12.5 mg PO BID #200 tabs 09/25/22 08/07/23 Rx clopidogrel 75 mg tablet (Plavix) 75 mg PO DAILY #100 tabs 09/25/22 08/07/23 Rx isosorbide mononitrate 120 mg 240 mg (2 x 120 mg) PO QAM #200 09/25/22 08/07/23 Rx tablet,extended release 24 hr tabs losartan 25 mg tablet 25 mg PO DAILY #100 tabs 09/25/22 08/07/23 Rx furosemide 40 mg tablet 40 mg PO BID #200 tabs 09/28/22 08/07/23 Rx potassium chloride 20 mEq 20 meq PO .COMPLEX #300 tabs 09/28/22 08/07/23 Rx tablet,extended release dapagliflozin propanediol 10 mg 10 mg PO DAILY #90 tabs 09/29/22 08/07/23 Rx tablet (Farxiga) nitroglycerin 0.4 mg sublingual See Rx Instructions .Route .COMPLEX 11/08/22 08/07/23 History tablet metolazone 5 mg tablet 5 mg PO DAILY PRN Fluid Retention 02/19/23 08/07/23 Rx #30 tabs OneTouch Verio test strips (blood #300 ea 05/29/23 08/07/23 Rx sugar diagnostic) lancets 30 gauge #300 ea 05/29/23 08/07/23 Rx fluoxetine 40 mg capsule 40 mg PO QAM #90 caps 06/26/23 08/07/23 Rx insulin human U-100 NPH-regulr 70 unit subcut QDD 08/07/23 08/07/23 History 70-30 mix 100 unit/mL subcutaneous susp (Novolin 70/30 U-100 Insulin) Past Med/Surg History Problem List (Updated 02/22/23 @ 15:20 by Qamar Handy DO) Acute bronchitis, viral Class 2 obesity due to excess calories with body mass index (BMI) of 36.0 to 36.9 in adult Hypovitaminosis D Diabetes mellitus with cardiac complication CAD (coronary artery disease) CKD (chronic kidney disease) (Chronic) Hyperglycemia (Acute) Hyponatremia (Acute) Moderate COPD (chronic obstructive pulmonary disease) Nonobstructive atherosclerosis of coronary artery H/O cardiomyopathy GUTIERREZ (dyspnea on exertion) (Acute) Fatty liver (Chronic) Hypertension Fusion of spine C4-7 ACDF Rpedx-9-kdkoycifahm deficiency Anemia of chronic disease Splenomegaly (Acute) Sensorineural hearing loss (SNHL) of both ears (Acute) Sleep apnea Dyslipidemia Asbestosis Diastolic heart failure Poorly controlled diabetes mellitus Medical History Acute renal failure CAD (coronary artery disease) Cervical radiculopathy Chest pain Chronic kidney disease, stage 3b Diabetic nephropathy associated with type 2 diabetes mellitus Diverticular disease Epicondylitis, lateral, left Fatty liver Glaucoma Gout Pancreatitis Pulmonary nodules Surgical History Fusion of spine H/O cervical spine surgery H/O elbow surgery History of cardiac cath History of colonoscopy History of esophagogastroduodenoscopy (EGD) History of tonsillectomy S/P Achilles tendon repair S/P wrist surgery Family History Grandmother Family history of diabetes mellitus Uncle Family history of diabetes mellitus Father COPD (chronic obstructive pulmonary disease) Lung disease Mother Hypertension Aunt Colorectal cancer Denies family history of Ovarian cancer Prostate cancer Myocardial infarction Breast cancer Social History Smoking Status: Never smoker Tobacco Type: Cigars Cigarettes Per Day: Rare cigar smoker, ~1x month; Second Hand Exposure: No; Do You Dip or Chew Tobacco: No; Hx Alcohol Use: No Hx Substance Use: No Preferred Language: Citizen Of [place] Communication Ability: Effective Visual Impairment: No Limitations Hearing Ability: Hard of Hearing Double [place] Sewer Required: No Beliefs That Will Affect Care: None marital status: Current Living Situation: Spouse Current Living Situation Comment: home w spouse current occupational status: employed and disabled 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 NAD. Cooperative. HEENT: Atraumatic, normocephalic. PERLAA Pulm: CTAB A&P. -wheezes, -rales, -rhonchi. Symmetrical chest rise. No increased work of breathing. No respiratory distress. Cardiac: RRR, soft sm. Radial pulses intact and symmetrical. no reproducable chest pain Abdominal: Nontender, nondistended, soft. BS present. Ext: warm/dry Results & Data Results & Data Vital Signs (Past 12 Hours) Vital Signs Temp Pulse Pulse Resp BP BP Pulse Ox 08/07/23 14:00 84 16 166/85 H 92 08/07/23 10:18 36.6 C 94 H 15 125/84 97 O2 Del Method 08/07/23 14:00 Room Air 08/07/23 10:18 Room Air PG Care Time/CCT Total # of Minutes Spent Total Time Spent with Patient: Total time spent is greater than 50% in coordination of care (as documented) at patient's floor/unit and/or counseling patient: Coding Level of Care Code 79950 INT INP/OBS CARE 3/75MIN Diagnoses Dyspnea R06.02 Dyspnea type: shortness of breath Chest pain R07.9 DM II (diabetes mellitus, type II), controlled E11.9 CKD (chronic kidney disease), stage III N18.3 BPH loc w urin obs/LUTS N40.1 (1) Dyspnea Dyspnea type: shortness of breath Qualified Code(s): R06.02 - Shortness of breath
[2023-08-07] MEDS ORDERED: POLYETHYLENE (MIRALAX) 17 GM PACK PO PRN (18:59)
[2023-08-07] MEDS ORDERED: GLUCOSE 40% GEL 15 GM TUBE PO PRN (18:59)
[2023-08-07] MEDS ORDERED: CARBOHYDRATES FOR HYPOGLYCEMIA PO PRN (18:59)
[2023-08-07] MEDS ORDERED: GLUCAGON FOR INJ 1 MG VIAL SQ PRN (18:59)
[2023-08-07] MEDS ORDERED: NITROGLYCERIN SL 0.4 MG/TAB TAB SL PRN (18:59)
[2023-08-07] MEDS ORDERED: ACETAMINOPHEN 325 MG TAB PO PRN (18:59)
[2023-08-07] MEDS ORDERED: GLUCOSE 10 TAB/TUBE PO PRN (18:59)
[2023-08-07] MEDS ORDERED: DEXTROSE 50% 50 ML SYRINGE IV PRN (18:59)
[2023-08-07] MEDS: POTASSIUM CHLORIDE CRTAB 20 MEQ TABCR PO SCH (19:42)
[2023-08-07] MEDS: CLOPIDOGREL BISULFATE 75 MG TAB PO SCH (19:42)
[2023-08-07] MEDS: FUROSEMIDE 40 MG TAB PO SCH (19:43)
[2023-08-07] MEDS: INSULIN ASPART PER UNIT CHARGE SC SCH (19:44)
[2023-08-07] MEDS: carvediloL 12.5 MG TAB PO SCH (20:38)
[2023-08-07] MEDS: LANTUS PER UNIT CHARGE SQ SCH (21:51)
[2023-08-07] MEDS ORDERED: Nursing to Pharmacy Communication SCH (22:00)
[2023-08-07] MEDS: allopurinoL 100 MG TAB PO SCH (22:26)
[2023-08-08 06:40] LABS: Basophils # (auto) 0.02 K/uL (0.00-0.20); Basophils % (auto) 0.4 %; Eosinophils # (auto) 0.12 K/uL (0.00-0.50); Eosinophils % (auto) 2.4 %; Hematocrit (blood only) 46.2 % (42.0-52.0); Hemoglobin 16.1 g/dl (14.0-18.0); Immature Granulocytes # (auto) 0.03 K/uL (0.01-0.20); Immature Granulocytes % (auto) 0.6 %; Lymphocytes # (auto) 1.03 K/uL (1.20-3.40); Mean Corpuscular Hgb Conc 34.8 g/dL (32.0-36.0); Mean Corpuscular Volume 80.2 fL (80.0-100.0); Mean Platelet Volume 9.6 fL (9.4-12.4); Monocytes # (auto) 0.95 K/uL (0.11-0.59); Monocytes % (auto) 19.3 %; Neutrophils # (auto) 2.76 K/uL (1.40-6.50); Neutrophils % (auto) 56.3 %; Platelet Count 111 K/uL (130-400); RDW Standard Deviation 40.5 fL (36.4-46.3); Red Blood Count 5.76 M/uL (4.70-6.10); White Blood Count 4.91 K/ul (4.8-10.8)
[2023-08-08 06:56] LABS: BUN Creatinine Ratio 15.9 (10-20); Calcium 8.9 mg/dl (8.6-10.3); Est GFR (African American) 40.4 ml/min; Est GFR (Non-African American) 34.8 ml/min; Potassium 3.3 mmol/L (3.5-5.1)
[2023-08-08] MEDS: FLUoxetine HCL 20 MG CAP PO SCH (08:17)
[2023-08-08] MEDS: ISOSORBIDE MONO EXTENDED REL 60 MG TABCR PO SCH (08:17)
[2023-08-08] MEDS: POTASSIUM CHLORIDE CRTAB 20 MEQ TABCR PO SCH (08:17)
[2023-08-08] MEDS: LOSARTAN POTASSIUM 25 MG TAB PO SCH (08:17)
[2023-08-08] MEDS: ATROPINE SULFATE 0.1 MG/ML 10ML SYR IV ONE ×2 (11:02→11:19)
[2023-08-08] MEDS: DOBUTamine HCL 12.5 MG/ML 20 ML VIAL IV ONE (11:03)
[2023-08-08] MEDS: METOPROLOL TARTRATE 1 MG/ML VIAL IV ONE (11:03)
--- NOTE | 2023-08-08 11:38 | Discharge Summary ---
Date of Service August 08, 2023 Admission HPI Per Admitting Provider Patient is a 68-year-old male with a past medical history of CAD, COPD, alpha-1 antitrypsin deficiency, diastolic heart failure, poorly controlled DM who presents to the ER with mildly increase dry cough and dyspnea with a worsening cough over the last day. Patient reports he feels weak and similar to when he previously had COVID. He is not hypoxic. In the ER he does not have a leukocytosis, he has a creatinine of 1.95 which is within his normal baseline of approximately 1.62.1, is hyperglycemic at 282 with a history of poorly controlled diabetes, has a negative bio fire, and had a CTA which shows no PE/no acute intrathoracic findings/moderate to extensive coronary calcification/stable splenomegaly. He has a high sensitive troponin of 27.8 with repeat pending EKG which shows normal sinus rhythm with an incomplete bundle branch block which was previously seen 06/2022. Patient seen at bedside. Reports he has had an intermittent dry cough which is worse than normal in the last week. Initially reported on signout that he had sinus congestion and URI symptoms, aMgdiel reports that this is not true. Other than a dry cough he has not had any sinus congestion, sputum production, or wheezing. He notes that occasionally because on exertion he gets more short of breath than usual in the last week, and if he tries to push through this he has a pressure-like chest discomfort in his middle/left chest similar to before getting his LAD stent and which is new in the last week. He reports he has not had chest pain like this exertionally since his stent was placed. His pain does go away with rest after at most around 20 to 30 minutes. He is currently chest pain-free and last episode of chest discomfort was last night. He reports she has had sweats, and did wake up feeling chilly yesterday. He has not had any abdominal pain, dysuria, rashes, leg swelling, sputum production, headache, or vision change. He does not feel like he has an infection but does feel little short of breath and is worried about the chest pain. He did not take his Plavix this morning. Medical History: Reviewed Medications: Reviewed Surgical History: Reviewed Family history: Reviewed Allergies: Reviewed Social History: Reviewed Code Status: Full Principal Diagnosis Noncardiac chest discomfort and dyspnea Discharge Exam General-alert and oriented x3, no fever, no chills HEENT-head atraumatic and normocephalic, pupils equal and reactive to light, extraocular muscles intact Neck-no lymphadenopathy or thyromegaly, trachea midline Chest-clear to auscultation. No rales, wheezing or rhonchi Cardiac-regular rate and rhythm, normal S1 and S2 Abdomen-normal bowel sounds, no hepatosplenomegaly Extremities-no cyanosis, clubbing, or edema Neuro-cranial nerves II through XII intact, motor and sensory function within normal limits, strength symmetrical, no focal deficits Psych-normal affect, normal mood Discharge Data Allergies Allergy/AdvReac Type Severity Reaction Status Date / Time ketorolac [From Toradol] Allergy Severe kidney Verified 06/29/23 13:52 failure NSAIDS (Non-Steroidal Allergy Unknown Unknown Verified 06/29/23 13:52 Anti-Inflamma Zwhhdqg-MIX-NbI Reductase AdvReac Intermediate Muscle pain Verified 06/29/23 13:52 Inhibitor [Hrpoiqo-Qmy-Bjz Reductase Inhibitor] Consultations 08/07/23 15:10 ED Decision to Admit Stat 08/07/23 15:37 ED Decision to Admit Stat Ordered Studies 08/07/23 14:13 CT angio chest PE protocol Stat Hospital Course (1) Dyspnea: Resolved. Noncardiac. He is on room air. Chest CTA negative for PE. (2) Chest pain: Noncardiac. No evidence of acute coronary syndrome. Dobutamine stress echo completed today, August 07, with negative results (3) DM II (diabetes mellitus, type II), controlled: ADA diet. Sliding scale coverage if needed. Basal insulin therapy (4) CKD (chronic kidney disease), stage III: Stable. Monitor intake and output. Serial labs (5) BPH loc w urin obs/LUTS: Stable. No intervention necessary at this time Plan Home today, August 07. All medications remain the same Total Time Total Time Spent Total Time Spent (In Minutes): 45 minutes Discharge Plan Discharge Items Patient Disposition: Home - Self-Care Reason For Visit: CHEST PAIN, DYSPNEA Discharge Diagnosis: Noncardiac chest pain and dyspnea Activity: Resume your previous activity Non-emergency contact: Primary Care Provider Call non-emergency contact if: your symptoms worsen Follow-up/Referrals: Qamar Handy DO [Primary Care Provider] - Diet: Carb Consistent or DM2 and Heart Healthy Addtl Attending Provider Instructions: All medications remain the same. Follow-up with primary care provider as soon as possible Pending Studies at Discharge: No Stand-Alone Forms: My [facility], Smoking Cessation Medications and DC Order Prescriptions: Continued allopurinol 100 mg tablet 200 mg PO BID Qty: 360 3RF (DME) insulin syringe-needle U-100 [BD Insulin Syringe Ultra-Fine] 0.3 mL 31 gauge x 5/16" syringe See Rx Instructions .Route Qty: 200 3RF Rx Instructions: use to give insulin BID losartan 25 mg tablet 25 mg PO DAILY Qty: 100 2RF Hold Instructions: Resume on 08/02/22. clopidogrel [Plavix] 75 mg tablet 75 mg PO DAILY Qty: 100 2RF isosorbide mononitrate 120 mg tablet extended release 24 hr 240 mg PO QAM Qty: 200 2RF (DME) FreeStyle Peace 3 Sensor Device See Rx Instructions .ROUTE .MEDSUPPLY Qty: 2 11RF Rx Instructions: As directed to monitor blood sugars; change sensor every 14 days carvedilol 12.5 mg tablet 12.5 mg PO BID Qty: 200 3RF furosemide 40 mg tablet 40 mg PO BID Qty: 200 2RF potassium chloride 20 mEq tablet extended release 20 meq PO .COMPLEX Qty: 300 2RF Rx Instructions: 2 tablets AM and 1 tablet in the PM; metolazone 5 mg tablet 5 mg PO DAILY PRN (Reason: Fluid Retention) Qty: 30 3RF Rx Instructions: PRN weight gain >3 lbs in 24 hours or weight >204 lbs (DME) lancets 30 gauge misc See Rx Instructions .Route Qty: 300 3RF Rx Instructions: test blood sugars three times a day (DME) OneTouch Verio test strips Strip See Rx Instructions .Route Qty: 300 3RF Rx Instructions: test blood sugars three times a day fluoxetine 40 mg capsule 40 mg PO QAM Qty: 90 3RF Farxiga 10 mg tablet 10 mg PO DAILY Qty: 90 3RF nitroglycerin 0.4 mg tablet, sublingual See Rx Instructions .ROUTE .COMPLEX Rx Instructions: as directed Novolin 70/30 U-100 Insulin 100 unit/mL (70-30) suspension 70 unit SQ QDD Discharge Orders: Discharge Order (Routine); Ordered 08/08/23 Ordered By: Silas Lan Admission Data Admit Date/Time: 08/07/23 15:59 Attending Provider: Silas Lan Admit Provider: Dony Kirk Primary Care Provider: Qamar Handy Other Providers: Dony Kirk Coding Level of Care Code 20607 INP/OBS DISCH >30 MIN Diagnoses Dyspnea R06.02 Dyspnea type: shortness of breath Chest pain R07.9 DM II (diabetes mellitus, type II), controlled E11.9 CKD (chronic kidney disease), stage III N18.3 BPH loc w urin obs/LUTS N40.1
--- NOTE | 2023-08-08 11:58 | Electrocardiogram Report ---
Test Reason : Blood Pressure : / mmHG Vent. Rate : 081 BPM Atrial Rate : 081 BPM P-R Int : 178 ms QRS Dur : 118 ms QT Int : 406 ms P-R-T Axes : 048 095 045 degrees QTc Int : 471 ms Normal sinus rhythm Rightward axis Borderline ECG When compared with ECG of 07-AUG-2023 10:34, No significant change was found Confirmed by Narciso Hurtado ([id number]) on 08/08/2023 11:58:17 AM Referred By: REFERRED SELF Confirmed By:Nicko Hurtado
--- NOTE | 2023-08-08 14:11 | XCELERA ---
[id number]
== END 2023-08-08 18:42 | disposition home or self-care (01) ==
LOC: ED 10:08 → EDINP 10:08 → SUATTDRO 15:59 → EDINP 20:36 → 2N 21:03

== ENCOUNTER 2024-03-03 13:33 | Observation (INO) ==
[2024-03-03 14:27] LABS: Basophils # (auto) 0.02 K/uL (0.00-0.20); Basophils % (auto) 0.3 %; Eosinophils % (auto) 1.7 %; Hemoglobin 14.1 g/dl (14.0-18.0); Immature Granulocytes # (auto) 0.06 K/uL (0.01-0.20); Lymphocytes % (auto) 13.8 %; Mean Corpuscular Hemoglobin 27.2 pg (25.0-34.0); Mean Corpuscular Hgb Conc 34.4 g/dL (32.0-36.0); Mean Platelet Volume 9.3 fL (9.4-12.4); Monocytes # (auto) 0.55 K/uL (0.11-0.59); Monocytes % (auto) 9.5 %; Neutrophils # (auto) 4.27 K/uL (1.40-6.50); Neutrophils % (auto) 73.7 %; Platelet Count 317 K/uL (130-400); RDW Coefficient of Variation 12.7 % (11.5-14.5); RDW Standard Deviation 36.1 fL (36.4-46.3); Red Blood Count 5.19 M/uL (4.70-6.10)
--- NOTE | 2024-03-03 14:27 | Emergency Department Note ---
Impression & Plan (HFpEF) heart failure with preserved ejection fraction, Cough, Acute kidney injury superimposed on CKD ED Provider Note Provider: Braulio Martin MD CHIEF COMPLAINT: Cough issues HISTORY OF PRESENT ILLNESS: Patient is a 69-year-old gentleman past medical history including CKD, diabetes, COVID-19 in December of this year, COPD and SSS exposure and diastolic heart failure presenting here today reporting is an ongoing cough issues since she has COVID in December. Reports he has been to his doctor as well as the [facility] ER for this. Has been using cough medicine without much improvement. This morning had a fairly significant cough episode in while in bed. Awoke his and she states he seemed a little bit blue in the face. Uses oxygen as needed. Does not use a CPAP at night as it dries him out too much. Denies recent significant weight gain has not been eating so much actually losing a little bit of weight. Reports little bit of pain in his chest with the coughing. is just recovered from COVID herself. No falls. No leg swelling. No recent travel. Did have a little bit of Robitussin type cough medicine that helped briefly but wears off quickly and he does not want to continue to take this. Albuterol inhaler was ineffective and could not afford other inhalers by his report. Cough initially productive but more recently last several days fairly dry. PAST MEDICAL HISTORY: As noted above MEDICATIONS: Reviewed home medication list SOCIAL HISTORY: Former smoker PHYSICAL EXAM: GENERAL: alert and oriented in no acute distress on stretcher Head: normocephalic and atraumatic EYES: No injection, discharge or icterus. NECK: Trachea midline. ENT: Mucous membranes pink and moist. LUNGS: Airway patent. No retractions. Breath sounds with a faint crackle in the bilateral lung bases. HEART: Regular rate and rhythm. No chest wall tenderness ABDOMEN: Soft and non-tender, without guarding or rebound. SKIN: Acyanotic, warm, dry, without rashes EXTREMITIES: Without swelling, tenderness or deformity NEUROLOGICAL: No focal deficits. No aphasia. No facial droop or slurred speech. EK bpm normal sinus rhythm. No PVC or PAC. No acute ST segment elevation or depression with QTc of 466. CONTINUOUS CARDIAC MONITORING: was ordered and showed a heart rate of bpm in Patient's laboratory studies and imaging reviewed. Differential includes Reactive airway disease, pneumonia, pneumothorax, COPD, CHF, infections, cardiac ischemia, pulmonary embolism, musculoskeletal, gastrointestinal, as well as other pathologies. IMPRESSION/MEDICAL DECISION MAKING: Patient with an ongoing chronic cough. Multiple medical problems but in particular diastolic CHF as well as COPD and recent COVID. COVID flu RSV test negative here today from triage. Blood work without significant anemia or leukocytosis. Blood work here without significant electrolyte abnormality about a creatinine elevation 2.7 today off his baseline. Is maintained on multiple medications including Lasix. Troponin normal and doubt acute cardiac injury. Believe the chest discomfort is musculoskeletal from his cough. Does not seem apically fluid overloaded though a few faint crackles appreciable in the lungs. Chest x-ray shows per radiology findings concerning for increased pulmonary vascular congestion. No significant effusions or pneumothorax or focal consolidation reported. Did not seem infectious like pneumonia. On my review does appear to have significant increased vascular markings. Previous from member . Does have evidence of acute on chronic kidney injury today. May have some worsened diastolic heart failure. Again not having findings concerning for acute heart injury/AR. Discussed with patient and . Review of medical record indicate the patient had a stress echo with grade 1 diastolic dysfunction and severe LVH in July of this year. Do question if there is possibly been some change. With his renal dysfunction and what appears to be some fluid overload on his lungs, discussed with him staying for further monitor diuresis and if paradoxically renal function would improve with some diuresis. Discussed with the hospitalist team. DIAGNOSIS: Cough, STEVEN on CKD, diastolic heart failure DISPOSITION: Hospitalist will evaluate Patient was agreeable with this plan. Past Med/Surg History Problem List (Updated 03/03/24 @ 21:45 by Braulio Martin M.D.) Acute kidney injury superimposed on CKD (Acute) Cough (Acute) Chronic cough (HFpEF) heart failure with preserved ejection fraction (Acute) STEVEN (acute kidney injury) COVID-19 (Acute) Diabetic nephropathy associated with type 2 diabetes mellitus Chronic kidney disease, stage 3b Cardiomyopathy Obesity Vitamin D deficiency Mood changes Anxiety and depression Statin myopathy Moderate COPD (chronic obstructive pulmonary disease) Nonobstructive atherosclerosis of coronary artery Fatty liver (Chronic) Hypertension 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 "PRE-GLAUMCOMA" Surgical History S/P trigger finger release H/O elbow surgery S/P Achilles tendon repair History of esophagogastroduodenoscopy (EGD) History of colonoscopy History of tonsillectomy History of cardiac cath S/P wrist surgery H/O cervical spine surgery Family History Grandmother Family history of diabetes mellitus Uncle Family history of diabetes mellitus Father COPD (chronic obstructive pulmonary disease) Lung disease Mother Hypertension Aunt Colorectal cancer Denies family history of Ovarian cancer Prostate cancer Myocardial infarction Breast cancer Social History Smoking Status: Former smoker Tobacco Type: Cigars Age Started Using Tobacco: 20; Cigarettes Per Day: Rare cigar smoker, ~1x month; Second Hand Exposure: No; Do You Dip or Chew Tobacco: No; Hx Alcohol Use: No Hx Substance Use: No Preferred Language: Portuguese Communication Ability: Effective Visual Impairment: No Limitations Hearing Ability: Hard of Hearing Telesales Team Leader Required: No Beliefs That Will Affect Care: None marital status: Current Living Situation: Spouse Current Living Situation Comment: home w spouse current occupational status: employed and disabled 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 [employer] Feels Safe at Home: Yes Childhood Exposure to Second-Hand Smoke: Yes Diet: diabetic, low salt and regular caffeine: Yes (very rare) during the past year weight has: remained stable Dental Care, Regularly: No Physical Activity Frequency: Does not Exercise Seatbelt Use: always Sunscreen Use: No Assistive Devices: Glasses and Oxygen - at Night Allergies Allergies Allergy/AdvReac Type Severity Reaction Status Date / Time ketorolac [From Toradol] Allergy Severe kidney Verified 02/11/24 16:21 failure NSAIDS (Non-Steroidal Allergy Unknown Unknown Verified 02/11/24 16:21 Anti-Inflamma Wepgabt-WTJ-MyS Reductase AdvReac Intermediate Muscle pain Verified 02/11/24 16:21 Inhibitor [Ihmzulc-Juz-Evj Reductase Inhibitor] Home Meds Home Medications Medication Instructions Recorded Confirmed nitroglycerin 0.4 mg sublingual See Rx Instructions .Route .COMPLEX 11/08/22 03/03/24 tablet insulin human U-100 NPH-regulr 70 unit subcut UD 08/07/23 03/03/24 70-30 mix 100 unit/mL subcutaneous susp (Novolin 70/30 U-100 Insulin) clopidogrel 75 mg tablet 75 mg PO DAILY 03/03/24 03/03/24 potassium chloride 20 mEq 20 meq PO UD 03/03/24 03/03/24 tablet,extended release Previous Rx's Medication Instructions Recorded allopurinol 100 mg tablet 200 mg (2 x 100 mg) PO BID #360 06/23/20 tabs insulin syringe-needle U-100 0.3 #200 ea 07/01/21 mL 31 gauge x 5/16" (BD Insulin Syringe Ultra-Fine) blood-glucose sensor (FreeStyle #2 ea 09/25/22 Peace 3 Sensor device) carvedilol 12.5 mg tablet 12.5 mg PO BID #200 tabs 09/25/22 losartan 25 mg tablet 25 mg PO DAILY #100 tabs 09/25/22 dapagliflozin propanediol 10 mg 10 mg PO DAILY #90 tabs 09/29/22 tablet (Farxiga) metolazone 5 mg tablet 5 mg PO DAILY PRN Fluid Retention 02/19/23 #30 tabs OneTouch Verio test strips (blood #300 ea 05/29/23 sugar diagnostic) lancets 30 gauge #300 ea 05/29/23 furosemide 40 mg tablet 40 mg PO BID #180 tabs 09/03/23 isosorbide mononitrate 120 mg 240 mg (2 x 120 mg) PO QAM #200 10/09/23 tablet,extended release 24 hr tabs fluoxetine 60 mg tablet 60 mg PO QAM #90 tabs 10/18/23 blood-glucose meter,continuous #1 ea 11/08/23 (Dexcom G7 Stagecraft Professor) blood-glucose sensor (Dexcom G7 #3 ea 11/08/23 Sensor device) insulin aspart U-100 100 unit/mL 78 unit (0.78 mL) subcut ONCE #80 11/15/23 subcutaneous solution (Novolog mL U-100 Insulin aspart) insulin pump cart,automated,BT #10 ea 12/03/23 (Omnipod 5 G6 Pods (Gen 5) subcutaneous cartridge) insulin pump cartridge,automated #1 ea 12/06/23 dose,BT with controller subcutaneous (Omnipod 5 G6 Intro Kit (Gen 5) subcutaneous cartridge with controller) albuterol sulfate 90 mcg/actuation 2 puff inhalation QID PRN 02/12/24 aerosol inhaler shortness of breath or wheezing #8.5 grams Results & Data (ED) Vital Signs Vital Signs - 24 hr 03/03/24 13:39 03/03/24 14:45 03/03/24 14:45 Temperature 36.1 C L Temperature Source Temporal Artery Scan Pulse Rate 85 Pulse Rate [Apical] 83 Pulse Rhythm Regular Pulse Strength Normal Respiratory Rate 20 23 Respiratory Effort / Characteristics Non-Labored Spontaneous Respiratory Depth Normal Blood Pressure 126/81 Blood Pressure [Right Arm] 118/68 Blood Pressure Mean 96 Blood Pressure Mean [Right Arm] 84 Blood Pressure Position Sitting Pulse Oximetry 96 97 97 Oxygen Delivery Method Room Air Room Air Room Air Sepsis Recent Fever Within 48 Hours No Sepsis New/Unexplained Change in Mental Status N/A Sepsis Action Taken by Nursing No Action Required 03/03/24 14:45 Temperature Temperature Source Pulse Rate 83 Pulse Rate [Apical] Pulse Rhythm Pulse Strength Respiratory Rate 24 Respiratory Effort / Characteristics Respiratory Depth Blood Pressure Blood Pressure [Right Arm] Blood Pressure Mean Blood Pressure Mean [Right Arm] Blood Pressure Position Pulse Oximetry 97 Oxygen Delivery Method Room Air Sepsis Recent Fever Within 48 Hours Sepsis New/Unexplained Change in Mental Status Sepsis Action Taken by Nursing Laboratory Data 03/03/24 13:58 03/03/24 13:58 Lab Results 03/03/24 03/03/24 Range/Units 13:46 13:58 WBC 5.80 (4.8-10.8) K/ul RBC 5.19 (4.70-6.10) M/uL Hgb 14.1 (14.0-18.0) g/dl Hct 41.0 L (42.0-52.0) % MCV 79.0 L (80.0-100.0) fL MCH 27.2 (25.0-34.0) pg MCHC 34.4 (32.0-36.0) g/dL RDW Std Deviation 36.1 L (36.4-46.3) fL RDW Coeff of Junito 12.7 (11.5-14.5) % Plt Count 317 (130-400) K/uL MPV 9.3 L (9.4-12.4) fL Immature Gran % (Auto) 1.0 % Neut % (Auto) 73.7 % Lymph % (Auto) 13.8 % Foster % (Auto) 9.5 % Eos % (Auto) 1.7 % Baso % (Auto) 0.3 % Neut # (Auto) 4.27 (1.40-6.50) K/uL Lymph # (Auto) 0.80 L (1.20-3.40) K/uL Foster # (Auto) 0.55 (0.11-0.59) K/uL Eos # (Auto) 0.10 (0.00-0.50) K/uL Baso # (Auto) 0.02 (0.00-0.20) K/uL Immature Gran # (Auto) 0.06 (0.01-0.20) K/uL PT 11.4 (9.0-12.0) Seconds INR 1.1 (0.9-1.1) APTT 35 H (21-31) Seconds PTT Ratio 1.3 Sodium 134 L (136-145) mmol/L Potassium 3.8 (3.5-5.1) mmol/L Chloride 99 (98-107) mmol/L Carbon Dioxide 26 (21-32) mmol/L Anion Gap 9 (3-11) BUN 52 H (6-23) mg/dl Creatinine 2.73 H (0.6-1.4) mg/dl Est Cr Clr Drug Dosing Not Reportable eGFR 24.72 BUN/Creatinine Ratio 19.0 (10-20) Glucose 162 H (70-99(Fasting)) mg/dl Calcium 8.7 (8.6-10.3) mg/dl Total Bilirubin 1.4 H (0.2-1.0) mg/dl AST 16 (13-39) U/L ALT 8 (7-52) U/L Alkaline Phosphatase 136 H (34-104) U/L Troponin I High Sens 6.1 (0-20) pg/ml B-Natriuretic Peptide 28 (0-100) pg/ml Total Protein 7.4 (6.0-8.3) gm/dl Albumin 3.6 (3.4-5.0) gm/dl Globulin 3.8 (2.5-4.0) gm/dl Albumin/Globulin Ratio 0.9 (0.9-2) SARS-CoV-2 (PCR) NEGATIVE (Negative) Influenza Type A (PCR) Negative (Neg) Influenza Type B (PCR) Negative (Neg) RSV (RT-PCR) Negative (Neg) Administered Medications Allopurinol (Allopurinol 100 Mg Tab) 200 mg PO BID ANGEL Stop: 04/02/24 20:59 Last Admin: 03/03/24 21:12 Dose: 200 mg Documented By: SAPPHIRE Carvedilol (Carvedilol 12.5 Mg Tab) 12.5 mg PO BID ANGEL Stop: 04/02/24 20:59 Last Admin: 03/03/24 21:12 Dose: 12.5 mg Documented By: SAPPHIRE Heparin Sodium (Porcine) (Heparin Sod 5,000 Unit/0.5 Ml Vial) 5,000 units SQ Q12 ANGEL Stop: 04/02/24 20:59 Last Admin: 03/03/24 21:12 Dose: 5,000 units Documented By: SAPPHIRE Imaging Data Radiologist's Impression: Chest X-Ray 03/03/24 13:44 XR chest 1V portable HISTORY: 69 years-old Male Chest pain, nonspecific COMPARISON: 02/12/2024 TECHNIQUE: AP view of the chest FINDINGS: Cardiac silhouette is enlarged. Pulmonary vascular congestion with interstitial coarsening. No pneumothorax or large pleural effusion. Cervical spinal fusion hardware with left shoulder arthroplasty. IMPRESSION: Cardiomegaly with pulmonary vascular congestion. ACT 112: Negative or not required by law. The above report was generated using voice recognition software. It may contain grammatical, syntax or spelling errors. Electronically signed by: Adam Orourke M.D. 03/03/2024 3:06 PM Discharge Plan Visit Data Chief Complaint: Cough ED Provider: Braulio Martin Discharge Problem: (HFpEF) heart failure with preserved ejection fraction, Cough, Acute kidney injury superimposed on CKD Patient Disposition: Admitted As Inpatient Discharge Instructions Interventions: ED Discharge Assessment Last Done: 03/03/24 20:27 Discharge Problem: (HFpEF) heart failure with preserved ejection fraction Qualifiers: Heart failure chronicity: acute on chronic Qualified Code(s): I50.33 - Acute on chronic diastolic (congestive) heart failure
[2024-03-03 14:37] LABS: Alanine Aminotransferase 8 U/L (7-52); Albumin Globulin Ratio 0.9 (0.9-2); Albumin Level 3.6 gm/dl (3.4-5.0); Alkaline Phosphatase 136 U/L (34-104); Anion Gap 9 (3-11); Aspartate Aminotransferase 16 U/L (13-39); Bilirubin,Total 1.4 mg/dl (0.2-1.0); Blood Urea Nitrogen 52 mg/dl (6-23); Calcium 8.7 mg/dl (8.6-10.3); Carbon Dioxide 26 mmol/L (21-32); Chloride 99 mmol/L (98-107); Globulin 3.8 gm/dl (2.5-4.0); Glucose 162 mg/dl (70-99(Fasting)); Potassium 3.8 mmol/L (3.5-5.1); Sodium 134 mmol/L (136-145); Total Protein 7.4 gm/dl (6.0-8.3)
[2024-03-03 14:42] LABS: Troponin I High Sensitivity 6.1 pg/ml (0-20)
[2024-03-03 14:49] LABS: INR 1.1 (0.9-1.1); Partial Thromboplastin Ratio 1.3; Partial Thromboplastin Time 35 Seconds (21-31); Prothrombin Time 11.4 Seconds (9.0-12.0)
[2024-03-03 14:52] LABS: Influenza A virus by PCR Negative (Neg); Influenza B virus by PCR Negative (Neg); RSV by PCR Negative (Neg); SARS CoV2 RNA(COVID-19) Ceph NEGATIVE (Negative)
--- NOTE | 2024-03-03 15:08 | XRay Report ---
XR chest 1V portable HISTORY: 69 years-old Male Chest pain, nonspecific COMPARISON: 02/12/2024 TECHNIQUE: AP view of the chest FINDINGS: Cardiac silhouette is enlarged. Pulmonary vascular congestion with interstitial coarsening. No pneumo thorax or large pleural effusion. Cervical spinal fusion hardware with left shoulder arthroplasty. IMPRESSION: Cardiomegaly with pulmonary vascular congestion. ACT 112: Negative or not required by law. The above report was generated using voice recognition software. It may contain grammatical, syntax o r spelling errors. Electronically signed by: Adam Orourke M.D. 03/03/2024 3:06 PM
--- NOTE | 2024-03-03 15:42 | History & Physical Report ---
Date of Service March 03, 2024 Assessment & Plan (1) STEVEN (acute kidney injury): Plan: - Creatinine= 2.73 up from a baseline of about 2 - BNP wnl, CXR looks similar to baseline - given recent illness and decreased PO intake feel that he may be hypovolemic - hold Lasix/metolazone - trend creatinine (2) (HFpEF) heart failure with preserved ejection fraction: Plan: - Stress echo 07/2023-> with grade 1 diastolic dysfunction - has been taking Lasix every other day - BNP= 28, weight down from prior, CXR largely unchanged from prior - feel hypovolemic in the setting of recent illness/poor PO intake - hold Lasix/metolazone - continue dapagliflozin (3) Diabetic nephropathy associated with type 2 diabetes mellitus: Plan: - last hemoglobin a1c= 6.4 01/2024 - Omnipod for insulin management-> continue - blood glucose checks ACHS, hypoglycemia protocol (4) Anxiety and depression: Plan: - continue fluoxetine (5) Moderate COPD (chronic obstructive pulmonary disease): Plan: - in the setting of alpha 1 antitrypsin deficiency - currently in using albuterol prn - spirometry from 2022 with FEV1/FVC= 84.32 (6) Nonobstructive atherosclerosis of coronary artery: Plan: - continue Plavix, isosorbide (7) Hypertension: Plan: - hold losartan in the setting of STEVEN - continue carvedilol (8) Chronic cough: Plan: - No signs of infectious and already completed Z pack with concern for atypical PNA - some subjective dyspnea, troponin negative, on room air - consider Post-viral cough - Question if COPD is contributing factor; was prescribed Atrovent but not filled, although spirometry from 2022 with FEV1/FVC= 84 Plan Chronic and Stable: Gout: continue allopurinol Admission and Anticipated Discharge Date Admission Date: Code: DNR/DNI Diet: DM2 VTE Prophylaxis: Heparin Dispo: Tele History of Present Illness Primary Care Provider: Qamar Handy, 69 year old male with a past medical history of DM2, HLD, HFpEF, CKD Stage III, COPD, CAD, presenting with concern for chronic cough and increased dyspnea. States that he tested positive for COVID in 12/2023. Has had chronic cough sense. Has noticed some increased dyspnea. This morning he was coughing to the point where he became dyspneic and according to his his "face turned blue" which prompted him to come to ED today. States that his appetite has been decreased sense having COVID. Says his lost about 10 pounds due to decreased appetite. States he has been drinking fluids. Has been taking his Lasix every other day, last took 03/02. Denies chest pain/pleuritic pain. Denies fever/chills. Was seen by PCP for cough 01/2024 and completed a course of azithromycin. ED Course Significant for: CBC wnl. CMp with creatinine= 2.73 (baseline ~2), total bilirubin= 1.4, Alk Phos= 136. BNP= 28. Respiratory biofire is negative. CXR with cardiomegaly and pulmonary vascular congestion. Allergies Allergy/AdvReac Type Severity Reaction Status Date / Time ketorolac [From Toradol] Allergy Severe kidney Verified 02/11/24 16:21 failure NSAIDS (Non-Steroidal Allergy Unknown Unknown Verified 02/11/24 16:21 Anti-Inflamma Aylnfor-YVD-QoH Reductase AdvReac Intermediate Muscle pain Verified 02/11/24 16:21 Inhibitor [Lpyrrnb-Njy-Kfe Reductase Inhibitor] Home Medications Medication Instructions Recorded Confirmed Type allopurinol 100 mg tablet 200 mg (2 x 100 mg) PO BID #360 06/23/20 03/03/24 Rx tabs insulin syringe-needle U-100 0.3 #200 ea 07/01/21 12/26/23 Rx mL 31 gauge x 5/16" (BD Insulin Syringe Ultra-Fine) blood-glucose sensor (FreeStyle #2 ea 09/25/22 12/26/23 Rx Peace 3 Sensor device) carvedilol 12.5 mg tablet 12.5 mg PO BID #200 tabs 09/25/22 03/03/24 Rx losartan 25 mg tablet 25 mg PO DAILY #100 tabs 09/25/22 03/03/24 Rx dapagliflozin propanediol 10 mg 10 mg PO DAILY #90 tabs 09/29/22 03/03/24 Rx tablet (Farxiga) nitroglycerin 0.4 mg sublingual See Rx Instructions .Route .COMPLEX 11/08/22 03/03/24 History tablet metolazone 5 mg tablet 5 mg PO DAILY PRN Fluid Retention 02/19/23 03/03/24 Rx #30 tabs OneTouch Verio test strips (blood #300 ea 05/29/23 12/26/23 Rx sugar diagnostic) lancets 30 gauge #300 ea 05/29/23 12/26/23 Rx insulin human U-100 NPH-regulr 70 unit subcut UD 08/07/23 03/03/24 History 70-30 mix 100 unit/mL subcutaneous susp (Novolin 70/30 U-100 Insulin) furosemide 40 mg tablet 40 mg PO BID #180 tabs 09/03/23 03/03/24 Rx isosorbide mononitrate 120 mg 240 mg (2 x 120 mg) PO QAM #200 10/09/23 03/03/24 Rx tablet,extended release 24 hr tabs fluoxetine 60 mg tablet 60 mg PO QAM #90 tabs 10/18/23 03/03/24 Rx blood-glucose meter,continuous #1 ea 11/08/23 12/26/23 Rx (Dexcom G7 [employer] Research Technician) blood-glucose sensor (Dexcom G7 #3 ea 11/08/23 12/26/23 Rx Sensor device) insulin aspart U-100 100 unit/mL 78 unit (0.78 mL) subcut ONCE #80 11/15/23 03/03/24 Rx subcutaneous solution (Novolog mL U-100 Insulin aspart) insulin pump cart,automated,BT #10 ea 12/03/23 12/26/23 Rx (Omnipod 5 G6 Pods (Gen 5) subcutaneous cartridge) insulin pump cartridge,automated #1 ea 12/06/23 12/26/23 Rx dose,BT with controller subcutaneous (Omnipod 5 G6 Intro Kit (Gen 5) subcutaneous cartridge with controller) albuterol sulfate 90 mcg/actuation 2 puff inhalation QID PRN 02/12/24 03/03/24 Rx aerosol inhaler shortness of breath or wheezing #8.5 grams clopidogrel 75 mg tablet 75 mg PO DAILY 03/03/24 03/03/24 History potassium chloride 20 mEq 20 meq PO UD 03/03/24 03/03/24 History tablet,extended release Past Med/Surg History Problem List (Updated 03/03/24 @ 17:03 by Carol Wilkinson DO) Chronic cough (HFpEF) heart failure with preserved ejection fraction STEVEN (acute kidney injury) COVID-19 (Acute) Diabetic nephropathy associated with type 2 diabetes mellitus Chronic kidney disease, stage 3b Cardiomyopathy Obesity Vitamin D deficiency Mood changes Anxiety and depression Statin myopathy Moderate COPD (chronic obstructive pulmonary disease) Nonobstructive atherosclerosis of coronary artery Fatty liver (Chronic) Hypertension 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 "PRE-GLAUMCOMA" Surgical History S/P trigger finger release H/O elbow surgery S/P Achilles tendon repair History of esophagogastroduodenoscopy (EGD) History of colonoscopy History of tonsillectomy History of cardiac cath S/P wrist surgery H/O cervical spine surgery Family History Grandmother Family history of diabetes mellitus Uncle Family history of diabetes mellitus Father COPD (chronic obstructive pulmonary disease) Lung disease Mother Hypertension Aunt Colorectal cancer Denies family history of Ovarian cancer Prostate cancer Myocardial infarction Breast cancer Social History Smoking Status: Former smoker Tobacco Type: Cigars Age Started Using Tobacco: 20; Cigarettes Per Day: Rare cigar smoker, ~1x month; Second Hand Exposure: No; Do You Dip or Chew Tobacco: No; Hx Alcohol Use: No Hx Substance Use: No Preferred Language: Uzbek Communication Ability: Effective Visual Impairment: No Limitations Hearing Ability: Hard of Hearing Transportation Security Officer Required: No Beliefs That Will Affect Care: None marital status: Current Living Situation: Spouse Current Living Situation Comment: home w spouse current occupational status: employed and disabled 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 [employer] Feels Safe at Home: Yes Childhood Exposure to Second-Hand Smoke: Yes Diet: diabetic, low salt and regular caffeine: Yes (very rare) during the past year weight has: remained stable Dental Care, Regularly: No Physical Activity Frequency: Does not Exercise Seatbelt Use: always Sunscreen Use: No Assistive Devices: Glasses and Oxygen - at Night Review of Systems Review of Systems: As per above Physical Exam Physical Exam: Constitutional: well-appearing, no acute distress HEENT: NCAT, no conjunctival injection CV: regular rhythm, no murmur appreciated, extremities well-perfused, no LE edema Resp: +rhonchi in bases, no wheezing, no increased work of breathing GI: soft, nondistended, nontender MSK: no gross deformities appreciated Skin: warm, dry, no rash appreciated Neuro: alert, oriented, no focal neurologic deficit appreciated Results & Data Results & Data Vital Signs (Past 12 Hours) Vital Signs Temp Pulse Pulse Resp BP BP Pulse Ox 03/03/24 14:45 83 24 97 03/03/24 14:45 97 03/03/24 14:45 83 23 118/68 97 03/03/24 13:39 36.1 C L 85 20 126/81 96 O2 Del Method 03/03/24 14:45 Room Air 03/03/24 14:45 Room Air 03/03/24 14:45 Room Air 03/03/24 13:39 Room Air Supervising Physician Co-Signing Physician Notes Patient seen and examined, chart reviewed, case discussed with Carol Wilkinson DO and I agree with the assessment and plan as above except as otherwise noted Labs and images reviewed Magdiel is seen at the bedside. He reports that he has had a chronic dry cough ever since having COVID many months ago. This has sometimes been productive for a small amount of thick white sputum, generally is a dry cough. He also started losartan around the same time. He denies orthopnea, chest pain, chest pressure. On admission has a STEVEN and was recommended for admission for diuresis with suspected fluid overload. His weight is actually down below his normal dry weight, he has not been eating or drinking well, and has taken Lasix intermittently as an outpatient. Chest x-ray does not show evidence of pulmonary edema. Clinically he appears slightly contracted, and does not have JVD. Lasix held and orals encouraged. Follow STEVEN overnight. With respect to his chronic post-COVID cough may be related to his COVID illness however as this has been a persistent dry cough reasonable to trial holding ARB to see if this helps. No evidence of pneumonia on chest x-ray. Lungs are with some rhonchi in the bases, no wheezing at time of assessment, no crackles or rales. Nondistressed and pleasant at the bedside. No chest pain and heart rate is regular. Agree with above. Resident Activity Tracking Resident Involvement: Resident Care Provided Care Provided: Adult [facility] Medicine
--- NOTE | 2024-03-03 15:52 | Electrocardiogram Report ---
Test Reason : Blood Pressure : */* mmHG Vent. Rate : 81 BPM Atrial Rate : 81 BPM P-R Int : 172 ms QRS Dur : 106 ms QT Int : 402 ms P-R-T Axes : 22 52 53 degrees QTcB Int : 466 ms Normal sinus rhythm Normal ECG When compared with ECG of 08-Aug-2023 11:11, No significant change Confirmed by Davon Gonzalez ([id number]) on 03/03/2024 3:51:45 PM Referred By: Confirmed By: Davon Gonzalez
--- NOTE | 2024-03-03 20:29 | Billing Data ---
Date of Service March 03, 2024 Coding Level of Care Code 85047 INT INP/OBS CARE
[2024-03-03] MEDS ORDERED: GLUCOSE 40% GEL 15 GM TUBE PO PRN (20:43)
[2024-03-03] MEDS ORDERED: GLUCOSE 10 TAB/TUBE PO PRN (20:43)
[2024-03-03] MEDS ORDERED: GLUCAGON FOR INJ 1 MG VIAL SQ PRN (20:43)
[2024-03-03] MEDS ORDERED: CARBOHYDRATES FOR HYPOGLYCEMIA PO PRN (20:43)
[2024-03-03] MEDS ORDERED: ALBUTEROL HFA 8 GM INHALER INH PRN (20:43)
[2024-03-03] MEDS ORDERED: DEXTROSE 50% 50 ML SYRINGE IV PRN (20:43)
[2024-03-03] MEDS ORDERED: INSULIN ASPART 100 UNITS/ML VIAL SC PRN (21:00)
[2024-03-03] MEDS: carvediloL 12.5 MG TAB PO SCH (21:12)
[2024-03-03] MEDS: HEPARIN SOD 5,000 UNIT/0.5 ML VIAL SQ SCH (21:12)
[2024-03-03] MEDS: allopurinoL 100 MG TAB PO SCH (21:12)
[2024-03-03] MEDS: INSULIN, Rapid-Acting PUMP SCH (22:04)
[2024-03-03] MEDS: BENZONATATE 100 MG CAPSULE PO PRN (23:35)
[2024-03-04 07:05] LABS: Basophils # (auto) 0.01 K/uL (0.00-0.20); Basophils % (auto) 0.2 %; Eosinophils # (auto) 0.11 K/uL (0.00-0.50); Eosinophils % (auto) 2.1 %; Hematocrit (blood only) 38.1 % (42.0-52.0); Hemoglobin 13.2 g/dl (14.0-18.0); Immature Granulocytes # (auto) 0.04 K/uL (0.01-0.20); Immature Granulocytes % (auto) 0.8 %; Lymphocytes % (auto) 15.2 %; Mean Corpuscular Hemoglobin 27.7 pg (25.0-34.0); Mean Corpuscular Hgb Conc 34.6 g/dL (32.0-36.0); Mean Platelet Volume 9.1 fL (9.4-12.4); Monocytes # (auto) 0.62 K/uL (0.11-0.59); Monocytes % (auto) 11.8 %; Neutrophils # (auto) 3.68 K/uL (1.40-6.50); Neutrophils % (auto) 69.9 %; Platelet Count 309 K/uL (130-400); RDW Coefficient of Variation 12.5 % (11.5-14.5); RDW Standard Deviation 35.8 fL (36.4-46.3); Red Blood Count 4.76 M/uL (4.70-6.10); White Blood Count 5.26 K/ul (4.8-10.8)
[2024-03-04 07:18] LABS: Albumin Globulin Ratio 0.9 (0.9-2); Albumin Level 3.3 gm/dl (3.4-5.0); Bilirubin,Total 1.2 mg/dl (0.2-1.0); Calcium 8.7 mg/dl (8.6-10.3); Creatinine Clr Calc Pharmacy 35.3 ml/min; Globulin 3.7 gm/dl (2.5-4.0); Potassium 3.7 mmol/L (3.5-5.1)
--- NOTE | 2024-03-04 08:02 | Hospitalist Progress Note ---
Date of Service March 04, 2024 Assessment & Plan (1) Pneumonia: Plan: most likely initial presentation was an ATYPICAL Pneumonia with changes on cxr of pneumonia not HF CT chest confirms this no pulmonary edema is seen suspect gram negative pneumonia (2) STEVEN (acute kidney injury): Plan: -resolving - hold Lasix/metolazone - trend creatinine (3) (HFpEF) heart failure with preserved ejection fraction: Plan: - Stress echo 07/2023-> with grade 1 diastolic dysfunction - has been taking Lasix every other day - continue dapagliflozin History of CAD and chronic stable HTN, holding losartan with steven, continue coreg, isosorbide and plavix (4) Diabetic nephropathy associated with type 2 diabetes mellitus: Plan: - last hemoglobin a1c= 6.4 01/2024 - Omnipod for insulin management-> continue - blood glucose checks ACHS, hypoglycemia protocol (5) Moderate COPD (chronic obstructive pulmonary disease): Plan: - in the setting of alpha 1 antitrypsin deficiency - currently in using albuterol prn - spirometry from 2022 with FEV1/FVC= 84.32 pt has chronic cough. (6) Anxiety and depression: Plan: - continue fluoxetine Plan Chronic and Stable: Gout: continue allopurinol Admission and Anticipated Discharge Date Admission Date: March 03, 2024 Subjective pt here with intractable cough, has history of alpha antitrysin deficiency, has smoked in the past, did have cough since january 16, cough since initially was productive now not Physical Exam Physical Exam: cardiac is regular lungs are dismissed but non focal Results & Data Results & Data Vital Signs (Past 12 Hours) Vital Signs Temp Pulse Pulse Pulse Resp BP BP 03/04/24 07:12 98.2 F 72 18 131/78 03/04/24 04:00 98.1 F 78 18 142/88 H 03/04/24 00:00 97.7 F 73 18 112/72 03/03/24 21:47 78 03/03/24 20:47 80 03/03/24 20:40 03/03/24 20:40 97.7 F 79 20 142/72 H 03/03/24 20:00 83 20 156/112 H Pulse Ox O2 Del Method 03/04/24 07:12 96 Room Air 03/04/24 04:00 95 Room Air 03/04/24 00:00 95 Room Air 03/03/24 21:47 03/03/24 20:47 03/03/24 20:40 Room Air 03/03/24 20:40 95 Room Air 03/03/24 20:00 98 Room Air Laboratory Results review cbc review chemisty PG Care Time/CCT Total # of Minutes Spent Total Time Spent with Patient: Total time spent is greater than 50% in coordination of care (as documented) at patient's floor/unit and/or counseling patient: Coding Level of Care Code 76437 SUB INP/OBS CARE 3/50MIN Diagnoses Pneumonia J18.9 STEVEN (acute kidney injury) N17.9 (HFpEF) heart failure with preserved ejection fraction I50.33 Heart failure chronicity: acute on chronic Diabetic nephropathy associated with type 2 diabetes mellitus E11.21 Moderate COPD (chronic obstructive pulmonary disease) J44.9 Anxiety and depression F41.9; F32.A (3) (HFpEF) heart failure with preserved ejection fraction Heart failure chronicity: acute on chronic Qualified Code(s): I50.33 - Acute on chronic diastolic (congestive) heart failure
[2024-03-04] MEDS ORDERED: INFLUENZA VACC TS2024-25(65y+)/PF (IIV3) 0.5mL Syr IM ONE (09:00)
[2024-03-04] MEDS: ISOSORBIDE MONO EXTENDED REL 60 MG TABCR PO SCH (09:05)
[2024-03-04] MEDS: FLUoxetine HCL 20 MG CAP PO SCH (09:06)
[2024-03-04] MEDS: CLOPIDOGREL BISULFATE 75 MG TAB PO SCH (09:06)
--- NOTE | 2024-03-04 14:11 | CT Scan Report ---
CT chest diagnostic wo con CLINICAL HISTORY: eval interstitial inflamation vs HF TECHNIQUE: Multidetector row helical CT of the chest was performed. Coronal and sagittal reformations were obtained. Automated dose lowering techniques and/or adjustment according to patient size were u tilized for this exam. CT DOSE: 674.29 mGy.cm Comparison: Comparison is made to CT chest 08/07/2023 FINDINGS: Lungs and pleura: Numerous nodular densities are seen in the right greater than left lower lung. Heart and pericardium: Aortic valvular calcifications are seen. Vessels: Moderate atherosclerotic changes in the aorta and coronary arteries. Pulmonary trunk measure s 33 mm. Mediastinum and ilir: Subcentimeter lymph nodes are seen. Chest wall and lower neck: Gynecomastia is noted bilaterally. Abdomen: Unremarkable. Bones: Degenerative changes in the thoracic spine. ACDF is seen. IMPRESSION: Findings are compatible with infectious/inflammatory process such as pneumonia. No interstitial pulmo nary edema is seen. ACT 112: Negative or not required by law. Electronically signed by: Rhys Pace M.D. 03/04/2024 2:09 PM
[2024-03-04] MEDS ORDERED: BENZONATATE 100 MG CAPSULE PO PRN (15:03)
[2024-03-04] MEDS: CETIRIZINE HCL 10 MG TABLET PO ONE (16:14)
[2024-03-04] MEDS: cefTRIAXone SODIUM 2,000 MG/50 ML BAG IV SCH (16:14)
[2024-03-04] MEDS: AZITHROMYCIN 500 MG in SODIUM CHLORIDE 0.9% 250 ML IV SCH (16:55)
[2024-03-04] MEDS: PROMETHAZINE 12.5 MG/50.5 ML BAG IV STA (17:43)
[2024-03-04] MEDS ORDERED: PROMETHAZINE 12.5 MG/50.5 ML BAG IV PRN (23:00)
[2024-03-05 06:42] LABS: Hematocrit (blood only) 36.4 % (42.0-52.0); Hemoglobin 12.5 g/dl (14.0-18.0); Mean Corpuscular Hemoglobin 27.5 pg (25.0-34.0); Mean Corpuscular Hgb Conc 34.3 g/dL (32.0-36.0); Mean Platelet Volume 8.8 fL (9.4-12.4); Platelet Count 251 K/uL (130-400); RDW Coefficient of Variation 12.7 % (11.5-14.5); RDW Standard Deviation 36.1 fL (36.4-46.3); Red Blood Count 4.55 M/uL (4.70-6.10); White Blood Count 4.19 K/ul (4.8-10.8)
[2024-03-05 07:14] LABS: Calcium 8.6 mg/dl (8.6-10.3); Potassium 3.9 mmol/L (3.5-5.1)
[2024-03-05 07:19] LABS: BUN Creatinine Ratio 20.2 (10-20); Creatinine Clr Calc Pharmacy 39.1 ml/min
[2024-03-05] MEDS: CETIRIZINE HCL 10 MG TABLET PO SCH (08:49)
[2024-03-05] MEDS ORDERED: CEFDINIR 300 MG CAP PO STA (11:10)
--- NOTE | 2024-03-05 11:10 | Discharge Summary ---
Date of Service March 05, 2024 Admission HPI Per Admitting Provider 69 year old male with a past medical history of DM2, HLD, HFpEF, CKD Stage III, COPD, CAD, presenting with concern for chronic cough and increased dyspnea. States that he tested positive for COVID in 12/2023. Has had chronic cough sense. Has noticed some increased dyspnea. This morning he was coughing to the point where he became dyspneic and according to his his "face turned blue" which prompted him to come to ED today. States that his appetite has been decreased sense having COVID. Says his lost about 10 pounds due to decreased appetite. States he has been drinking fluids. Has been taking his Lasix every other day, last took 03/02. Denies chest pain/pleuritic pain. Denies fever/chills. Was seen by PCP for cough 01/2024 and completed a course of azithromycin. ED Course Significant for: CBC wnl. CMp with creatinine= 2.73 (baseline ~2), total bilirubin= 1.4, Alk Phos= 136. BNP= 28. Respiratory biofire is negative. CXR with cardiomegaly and pulmonary vascular congestion. Specialty Data Hospitalist Discharge Dx: 1. Atypical PNA w/ cough 2. STEVEN on CKD - resolved D/C exam: Vital Signs Temp Pulse Pulse Resp BP BP Pulse Ox 03/05/24 08:02 36.8 C 77 18 162/89 H 94 03/05/24 08:00 03/05/24 07:12 74 03/05/24 02:54 72 03/05/24 02:41 36.6 C 75 16 137/80 93 03/04/24 22:38 36.9 C 68 18 119/74 96 03/04/24 22:11 03/04/24 19:57 36.7 C 69 18 121/76 95 03/04/24 15:33 36.8 C 71 18 119/71 93 03/04/24 15:08 72 O2 Del Method 03/05/24 08:02 Room Air 03/05/24 08:00 Room Air 03/05/24 07:12 03/05/24 02:54 03/05/24 02:41 Room Air 03/04/24 22:38 Room Air 03/04/24 22:11 Room Air 03/04/24 19:57 Room Air 03/04/24 15:33 Room Air 03/04/24 15:08 GENERAL: 69 yo obese WM. NAD. LUNGS: Nonlabored. Bibasilar crackles. No wheezes/rhonchi. CARDIOVASCULAR: Regular rate and rhythm. ABDOMEN: Soft, non-tender and non-distended. BS normoactive x 4 quad. EXTREMITIES: No edema. Non-tender. Peripheral pulses +2/4. NEUROLOGIC: A&O x3. No focal neurological deficits. CN II-XII grossly intact. PSYCHIATRIC: Cooperative. Appropriate mood and affect. SKIN: Warm, dry, intact. No rashes or lesions. Discharge Data Consultations 03/03/24 15:38 ED Decision to Admit Stat Hospital Course (1) Pneumonia: most likely initial presentation was an ATYPICAL Pneumonia with changes on cxr of pneumonia not HF CT chest confirms this no pulmonary edema is seen started on ceftriaxone and azithromycin on 03/04, will continue upon d/c - complete course of azithromycin 250mg daily x4 days - continue cefdinir 300mg BID x6 days - d/c with 7 day course of mucinex 600mg bid and add tessalon perles prn cough - f/u with pulm clinic (2) STEVEN (acute kidney injury): - lasix, metolazone and losartan were held - creatinine trended and has returned to baseline - will resume lasix at 40mg daily (previously on 40mg BID) and d/c metolazone - Resume losartan - Follow up BMP on 03/10 w/ results CC to PCP (3) (HFpEF) heart failure with preserved ejection fraction: - Stress echo 07/2023-> with grade 1 diastolic dysfunction - see above regarding diuretic adjustments - continue dapagliflozin History of CAD and chronic stable HTN, holding losartan with steven, continue coreg, isosorbide and plavix (4) Diabetic nephropathy associated with type 2 diabetes mellitus: - last hemoglobin a1c= 6.4 01/2024 - Omnipod for insulin management-> continue (5) Moderate COPD (chronic obstructive pulmonary disease): - in the setting of alpha 1 antitrypsin deficiency - currently in using albuterol prn - spirometry from 2022 with FEV1/FVC= 84.32 pt has chronic cough. - f/u with pulmonology clinic (6) Anxiety and depression: - continue fluoxetine Plan Patient is medically and hemodynamically stable for discharge. F/u with pcp within 1 week. Above plan has been d/w Dr. Dominique who is in agreement. Total time for discharge: 35 minutes Coding Level of Care Code 77848 INP/OBS DISCH >30 MIN Diagnoses Pneumonia J18.9 STEVEN (acute kidney injury) N17.9 (HFpEF) heart failure with preserved ejection fraction I50.33 Heart failure chronicity: acute on chronic Diabetic nephropathy associated with type 2 diabetes mellitus E11.21 Moderate COPD (chronic obstructive pulmonary disease) J44.9 Anxiety and depression F41.9; F32.A
[2024-03-05 11:40] VITALS: BP 114/64; RESP 20; TEMP 97.9; O2SAT 92
[2024-03-05 12:58] VITALS: PULSE 78
== END 2024-03-05 14:28 | disposition home or self-care (01) ==
LOC: ED 13:33 → 2N 13:33 → SUATTDRO 16:02 → 2N 20:27

== ENCOUNTER 2024-05-10 06:40 | Observation (INO) ==
--- NOTE | 2024-05-10 06:55 | Emergency Department Note ---
Impression & Plan Abdominal pain, Chronic kidney disease, stage 3b, Chest pain ED Provider Note NAME: RPAMOD DELCID AGE: 69 SEX: M : 1955 ARRIVES VIA: Ambulance INFORMANT: Patient, EMS ED PROVIDER(S): Phillip Nicole DO CHIEF COMPLAINT: Vomiting HPI: The patient is a 69-year-old male who presented to the emergency department for an evaluation of abdominal pain. The patient started noticing symptoms approximately 2:00 this morning. The patient called 911. The patient states the pain initially began in his upper abdomen but then started going into his lower chest. He thought this could be cardiac in nature. He took his nitroglycerin. He did have an episode of emesis. He was noted to have a fever prior to arrival. The patient denies having any lower extremity swelling or pain. He states he continues to have the chest pain as well as abdominal pain. The patient had an episode of cough as well. He denies having any sick contacts. The patient's been compliant with his outpatient medications otherwise. ROS: See above HPI for pertinent positives & negatives. A total of 10 systems reviewed and were otherwise negative. PAST MEDICAL HISTORY: See Below PAST SURGICAL HISTORY: See Below FAMILY HISTORY: See Below SOCIAL HISTORY: See Below HOME MEDICATIONS: See Below ALLERGIES: See Below VITALS: See Below PHYSICAL EXAMINATION: GENERAL: The patient is awake and alert. The patient is very anxious and appears to be uncomfortable. EYES: The conjunctivae are clear. The pupils are round and reactive. EARS, NOSE, MOUTH AND THROAT: The nose is without any evidence of any deformity. NECK: The neck is nontender and supple. RESPIRATORY: Diminished breath sounds are noted at the left base. There were rales noted at the left base. CARDIOVASCULAR: Regular rate and rhythm noted there no murmurs rubs or gallops normal S1 normal S2. GASTROINTESTINAL: The abdomen was distended and diffusely tender. There is guarding in the upper abdomen. MUSCULOSKELETAL/EXTREMITIES: There is no evidence of gross deformity full range of motion is noted in the hips and shoulders. SKIN: There is no obvious evidence of any rash. There are no petechiae, pallor or cyanosis noted. NEUROLOGIC: Patient is awake alert and oriented x3 strength is symmetric patellar reflexes are 2+ bilaterally MEDICAL DECISION MAKING: The patient is a 69-year-old male who presented to the emergency department for an evaluation of abdominal pain and chest pain. The patient arrived via ambulance. Upon arrival he did have a very impressive physical exam. He has a history of upper abdominal pain in the past but it was not going into his chest. There is concern given the patient's comorbidities that this could be related to cardiac disease. He was treated with nitroglycerin prior to arrival. He was also given pain medication. I reevaluated the patient multiple times. On reevaluation he was not significantly improved with his discomfort in his chest but his abdominal pain was significantly improved. Given his comorbidities I discussed his condition with the on-call [facility] hospitalist. They have agreed to evaluate the patient in the emergency department. Triage Nursing notes reviewed. Prior medical records reviewed Vital Signs: reviewed and remarkable for elevated blood pressure. Differential diagnosis: Etiologies such as appendicitis, diverticulitis, obstruction, inflammatory bowel disease, renal colic, PUD, biliary pathology, pancreatitis, mesenteric ischemia, aortic pathology, infections, genitourinary, UTI, perforated viscus, as well as others were entertained. ER treatment provided: See below Diagnostics interpreted by me: ECG: EKG was obtained in the emergency department. My interpretation is normal sinus rhythm at 69 bpm. There is no ectopy. There is no acute ST segment abnormalities noted. This was compared to a tracing from March 03, 2024. No changes were noted. Cardiac Monitoring: An order was placed for continuous cardiac monitoring. The monitor shows a rate of 75 bpm with sinus rhythm. Laboratory studies: As stated above and show below. Imaging studies: See below. Radiographic imaging was reviewed by myself Consultation(s): I discussed this case with Dr. Johnson who is on-call for the [facility]. Past Med/Surg History Problem List (Updated 05/10/24 @ 12:28 by Phillip Nicole DO) Chest pain (Acute) Abdominal pain (Acute) Viral gastroenteritis Diabetes type 2, controlled Chronic cough (HFpEF) heart failure with preserved ejection fraction (Acute) Diabetic nephropathy associated with type 2 diabetes mellitus Chronic kidney disease, stage 3b (Acute) Cardiomyopathy Anxiety and depression Moderate COPD (chronic obstructive pulmonary disease) Nonobstructive atherosclerosis of coronary artery Fatty liver (Chronic) Hypertension Nqmtu-3-hgwlrbrtbuj deficiency Anemia of chronic disease Dyslipidemia Asbestosis Medical History Obesity Vitamin D deficiency Statin myopathy Sleep apnea Sensorineural hearing loss (SNHL) of both ears Splenomegaly History of pancreatitis History of kidney injury Cervical radiculopathy right C8 Pulmonary nodules Gout Diverticular disease Glaucoma NO MEDICATIONS. "PRE-GLAUMCOMA" Surgical History Fusion of spine C4-7 ACDF S/P trigger finger release right and left hands H/O elbow surgery LEFT S/P Achilles tendon repair LEFT History of esophagogastroduodenoscopy (EGD) History of colonoscopy History of tonsillectomy History of cardiac cath NO STENTS. FOLLOWS WITH DR. PRYOR. S/P wrist surgery H/O cervical spine surgery Family History Grandmother Family history of diabetes mellitus Uncle Family history of diabetes mellitus Father COPD (chronic obstructive pulmonary disease) Lung disease Mother Hypertension Aunt Colorectal cancer Denies family history of Ovarian cancer Prostate cancer Myocardial infarction Breast cancer Social History Smoking Status: Former smoker Tobacco Type: Cigars Age Started Using Tobacco: 20; Cigarettes Per Day: Rare cigar smoker, ~1x month; Second Hand Exposure: No; Do You Dip or Chew Tobacco: No; Hx Alcohol Use: No Hx Substance Use: No Preferred Language: [place] Communication Ability: Effective Visual Impairment: No Limitations Hearing Ability: Hard of Hearing Devulcanizer Charger Required: No Beliefs That Will Affect Care: None marital status: Current Living Situation: Spouse Current Living Situation Comment: home w spouse current occupational status: employed and disabled 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 [employer] Feels Safe at Home: Yes Childhood Exposure to Second-Hand Smoke: Yes Diet: diabetic, low salt and regular caffeine: Yes (very rare) during the past year weight has: remained stable Dental Care, Regularly: No Physical Activity Frequency: Does not Exercise Seatbelt Use: always Sunscreen Use: No Assistive Devices: Oxygen - at Night Allergies Allergies Allergy/AdvReac Type Severity Reaction Status Date / Time ketorolac [From Toradol] Allergy Severe kidney Verified 04/07/24 13:24 failure NSAIDS (Non-Steroidal Allergy Unknown Unknown Verified 04/07/24 13:24 Anti-Inflamma Bzwbeag-ZCC-CfO Reductase AdvReac Intermediate Muscle pain Verified 04/07/24 13:24 Inhibitor [Mibxeab-Bax-Zgr Reductase Inhibitor] Home Meds Home Medications Medication Instructions Recorded Confirmed clopidogrel 75 mg tablet 75 mg PO QAM 03/03/24 05/10/24 furosemide 40 mg tablet 40 mg PO BID 03/12/24 05/10/24 insulin aspart U-100 100 unit/mL 100 unit subcut UD 04/21/24 05/10/24 subcutaneous solution (Novolog U-100 Insulin aspart) carvedilol 12.5 mg tablet 25 mg PO BID 04/30/24 05/10/24 losartan 25 mg tablet 50 mg PO QAM 04/30/24 05/10/24 potassium chloride 20 mEq 20 meq PO UD 04/30/24 05/10/24 tablet,extended release dapagliflozin propanediol 10 mg 10 mg PO QAM 05/10/24 05/10/24 tablet (Farxiga) fluticasone fur. 200 mcg-umeclid 1 inh inhalation QAM 05/10/24 05/10/24 62.5 mcg-vilant 25 mcg inhalat.powder (Trelegy Ellipta) Previous Rx's Medication Instructions Recorded allopurinol 100 mg tablet 200 mg (2 x 100 mg) PO BID #360 06/23/20 tabs lancets 30 gauge #300 ea 05/29/23 isosorbide mononitrate 120 mg 240 mg (2 x 120 mg) PO QAM #200 10/09/23 tablet,extended release 24 hr tabs blood-glucose meter,continuous #1 ea 11/08/23 (Dexcom G7 Engine Lathe Set Up Operator) blood-glucose sensor (Dexcom G7 #3 ea 11/08/23 Sensor device) insulin pump cart,automated,BT #10 ea 12/03/23 (Omnipod 5 G6 Pods (Gen 5) subcutaneous cartridge) insulin pump cartridge,automated #1 ea 12/06/23 dose,BT with controller subcutaneous (Omnipod 5 G6 Intro Kit (Gen 5) subcutaneous cartridge with controller) fluoxetine 60 mg tablet 60 mg PO QAM #90 tabs 04/02/24 insulin syringe-needle U-100 0.5 #200 ea 04/18/24 mL 30 gauge x 1/2" (BD Insulin Syringe Ultra-Fine) metolazone 5 mg tablet 5 mg PO DAILY PRN weight gain #1 04/29/24 tab OneTouch Verio test strips (blood #300 ea 05/05/24 sugar diagnostic) Results & Data (ED) Vital Signs Vital Signs - 24 hr 05/10/24 06:45 05/10/24 07:00 05/10/24 07:15 Temperature 36.7 C Temperature Source Oral Pulse Rate 78 Pulse Rate [Apical] 74 Pulse Rate from SpO2 Sensor Respiratory Rate 20 20 Respiratory Effort / Characteristics Non-Labored Spontaneous Respiratory Depth Normal Blood Pressure 189/126 H Blood Pressure [Right Arm] 202/90 H Blood Pressure Mean 147 Blood Pressure Mean [Right Arm] 127 Pulse Oximetry 96 96 Oxygen Delivery Method Room Air Room Air Sepsis Recent Fever Within 48 Hours No Sepsis New/Unexplained Change in Mental Status No Sepsis Action Taken by Nursing No Action Required 05/10/24 07:26 05/10/24 07:36 05/10/24 07:51 Temperature Temperature Source Pulse Rate 71 Pulse Rate [Apical] 69 Pulse Rate from SpO2 Sensor 71 Respiratory Rate 16 18 Respiratory Effort / Characteristics Respiratory Depth Blood Pressure 205/108 H Blood Pressure [Right Arm] 204/118 H Blood Pressure Mean 152 Blood Pressure Mean [Right Arm] 146 Pulse Oximetry 96 97 Oxygen Delivery Method Room Air Sepsis Recent Fever Within 48 Hours Sepsis New/Unexplained Change in Mental Status Sepsis Action Taken by Nursing 05/10/24 07:51 05/10/24 08:00 05/10/24 08:12 Temperature Temperature Source Pulse Rate 77 81 Pulse Rate [Apical] Pulse Rate from SpO2 Sensor 78 81 Respiratory Rate 13 20 Respiratory Effort / Characteristics Respiratory Depth Blood Pressure 199/116 H Blood Pressure [Right Arm] Blood Pressure Mean 132 Blood Pressure Mean [Right Arm] Pulse Oximetry 96 96 Oxygen Delivery Method Sepsis Recent Fever Within 48 Hours Sepsis New/Unexplained Change in Mental Status Sepsis Action Taken by Nursing 05/10/24 08:16 05/10/24 08:30 05/10/24 08:33 Temperature Temperature Source Pulse Rate 70 81 Pulse Rate [Apical] Pulse Rate from SpO2 Sensor 78 Respiratory Rate 20 Respiratory Effort / Characteristics Respiratory Depth Blood Pressure 173/134 H Blood Pressure [Right Arm] Blood Pressure Mean 140 Blood Pressure Mean [Right Arm] Pulse Oximetry 98 Oxygen Delivery Method Sepsis Recent Fever Within 48 Hours Sepsis New/Unexplained Change in Mental Status Sepsis Action Taken by Nursing 05/10/24 08:33 05/10/24 08:42 05/10/24 08:51 Temperature Temperature Source Pulse Rate 73 80 76 Pulse Rate [Apical] Pulse Rate from SpO2 Sensor 75 79 74 Respiratory Rate 19 17 19 Respiratory Effort / Characteristics Respiratory Depth Blood Pressure Blood Pressure [Right Arm] Blood Pressure Mean Blood Pressure Mean [Right Arm] Pulse Oximetry 97 95 97 Oxygen Delivery Method Sepsis Recent Fever Within 48 Hours Sepsis New/Unexplained Change in Mental Status Sepsis Action Taken by Nursing 05/10/24 09:00 05/10/24 09:00 05/10/24 09:00 Temperature Temperature Source Pulse Rate 77 Pulse Rate [Apical] 80 Pulse Rate from SpO2 Sensor 77 Respiratory Rate 20 17 Respiratory Effort / Characteristics Respiratory Depth Blood Pressure 204/109 H Blood Pressure [Right Arm] 204/109 H Blood Pressure Mean 150 Blood Pressure Mean [Right Arm] 140 Pulse Oximetry 98 96 Oxygen Delivery Method Room Air Sepsis Recent Fever Within 48 Hours Sepsis New/Unexplained Change in Mental Status Sepsis Action Taken by Nursing 05/10/24 09:12 05/10/24 09:30 05/10/24 09:36 Temperature Temperature Source Pulse Rate 85 86 Pulse Rate [Apical] Pulse Rate from SpO2 Sensor 87 Respiratory Rate 20 20 Respiratory Effort / Characteristics Respiratory Depth Blood Pressure 218/114 H Blood Pressure [Right Arm] Blood Pressure Mean 166 Blood Pressure Mean [Right Arm] Pulse Oximetry 97 Oxygen Delivery Method Sepsis Recent Fever Within 48 Hours Sepsis New/Unexplained Change in Mental Status Sepsis Action Taken by Nursing 05/10/24 09:54 05/10/24 10:12 05/10/24 10:21 Temperature Temperature Source Pulse Rate 87 78 81 Pulse Rate [Apical] Pulse Rate from SpO2 Sensor 81 82 81 Respiratory Rate 18 17 17 Respiratory Effort / Characteristics Respiratory Depth Blood Pressure Blood Pressure [Right Arm] Blood Pressure Mean Blood Pressure Mean [Right Arm] Pulse Oximetry 96 95 95 Oxygen Delivery Method Sepsis Recent Fever Within 48 Hours Sepsis New/Unexplained Change in Mental Status Sepsis Action Taken by Nursing 05/10/24 10:27 05/10/24 10:30 05/10/24 10:39 Temperature Temperature Source Pulse Rate 74 88 Pulse Rate [Apical] Pulse Rate from SpO2 Sensor 82 Respiratory Rate 17 24 Respiratory Effort / Characteristics Respiratory Depth Blood Pressure 224/116 H Blood Pressure [Right Arm] Blood Pressure Mean 174 Blood Pressure Mean [Right Arm] Pulse Oximetry 97 Oxygen Delivery Method Sepsis Recent Fever Within 48 Hours Sepsis New/Unexplained Change in Mental Status Sepsis Action Taken by Nursing 05/10/24 11:00 05/10/24 11:33 05/10/24 12:03 Temperature Temperature Source Pulse Rate 87 78 77 Pulse Rate [Apical] Pulse Rate from SpO2 Sensor 91 H 81 80 Respiratory Rate 18 19 19 Respiratory Effort / Characteristics Respiratory Depth Blood Pressure 211/117 H 196/105 H 190/100 H Blood Pressure [Right Arm] Blood Pressure Mean 148 135 130 Blood Pressure Mean [Right Arm] Pulse Oximetry 97 95 95 Oxygen Delivery Method Sepsis Recent Fever Within 48 Hours Sepsis New/Unexplained Change in Mental Status Sepsis Action Taken by Nursing 05/10/24 12:17 Temperature Temperature Source Pulse Rate 85 Pulse Rate [Apical] Pulse Rate from SpO2 Sensor Respiratory Rate Respiratory Effort / Characteristics Respiratory Depth Blood Pressure Blood Pressure [Right Arm] Blood Pressure Mean Blood Pressure Mean [Right Arm] Pulse Oximetry Oxygen Delivery Method Sepsis Recent Fever Within 48 Hours Sepsis New/Unexplained Change in Mental Status Sepsis Action Taken by Longterm Medications Current Medication List: was personally reviewed by me Laboratory Data Attestation: I reviewed the patient's lab results. 05/10/24 07:03 05/10/24 07:03 Lab Results 05/10/24 05/10/24 05/10/24 Range/Units 07:03 07:05 09:51 WBC 5.74 (4.8-10.8) K/ul RBC 6.07 (4.70-6.10) M/uL Hgb 16.7 (14.0-18.0) g/dl Hct 49.6 (42.0-52.0) % MCV 81.7 (80.0-100.0) fL MCH 27.5 (25.0-34.0) pg MCHC 33.7 (32.0-36.0) g/dL RDW Std Deviation 44.5 (36.4-46.3) fL RDW Coeff of Junito 15.6 H (11.5-14.5) % Plt Count 130 (130-400) K/uL MPV 9.7 (9.4-12.4) fL Immature Gran % (Auto) 0.5 % Neut % (Auto) 70.0 % Lymph % (Auto) 14.6 % [place] % (Auto) 10.8 % Eos % (Auto) 3.8 % Baso % (Auto) 0.3 % Neut # (Auto) 4.01 (1.40-6.50) K/uL Lymph # (Auto) 0.84 L (1.20-3.40) K/uL [place] # (Auto) 0.62 H (0.11-0.59) K/uL Eos # (Auto) 0.22 (0.00-0.50) K/uL Baso # (Auto) 0.02 (0.00-0.20) K/uL Immature Gran # (Auto) 0.03 (0.01-0.20) K/uL PT 10.9 (9.0-12.0) Seconds INR 1.0 (0.9-1.1) APTT 34 H (21-31) Seconds PTT Ratio 1.3 Sodium 137 (136-145) mmol/L Potassium 3.7 (3.5-5.1) mmol/L Chloride 101 (98-107) mmol/L Carbon Dioxide 25 (21-32) mmol/L Anion Gap 11 (3-11) BUN 46 H (6-23) mg/dl Creatinine 1.97 H (0.6-1.4) mg/dl Est Cr Clr Drug Dosing 38.9 ml/min eGFR 36.56 BUN/Creatinine Ratio 23.4 H (10-20) Glucose 170 H (70-99(Fasting)) mg/dl Calcium 9.2 (8.6-10.3) mg/dl Total Bilirubin 1.0 (0.2-1.0) mg/dl AST 19 (13-39) U/L ALT 10 (7-52) U/L Alkaline Phosphatase 103 (34-104) U/L Troponin I High Sens 11.7 12.3 (0-20) pg/ml Total Protein 7.7 (6.0-8.3) gm/dl Albumin 4.1 (3.4-5.0) gm/dl Globulin 3.6 (2.5-4.0) gm/dl Albumin/Globulin Ratio 1.1 (0.9-2) Lipase 27 (11-82) U/L Urine Color Urine Appearance (Clear) Urine pH (4.5-7.5) Ur Specific Hamilton (1.000-1.030) Urine Protein (Negative) Urine Glucose (UA) (Negative) Urine Ketones (Negative) Urine Blood (Negative) Urine Nitrite (Negative) Urine Bilirubin (Negative) Urine Urobilinogen (Negative) Ur Leukocyte Esterase (Negative) Urine WBC (Auto) (0-5) /hpf Urine RBC (Auto) (0-2) /hpf U Hyaline Cast (Auto) (0-2) /lpf U Epithel Cells (Auto) (0-2) /hpf Urine Bacteria (Auto) (None Seen) SARS-CoV-2 (PCR) NEGATIVE (Negative) Influenza Type A (PCR) Negative (Neg) Influenza Type B (PCR) Negative (Neg) RSV (RT-PCR) Negative (Neg) 05/10/24 Range/Units 11:00 WBC (4.8-10.8) K/ul RBC (4.70-6.10) M/uL Hgb (14.0-18.0) g/dl Hct (42.0-52.0) % MCV (80.0-100.0) fL MCH (25.0-34.0) pg MCHC (32.0-36.0) g/dL RDW Std Deviation (36.4-46.3) fL RDW Coeff of Junito (11.5-14.5) % Plt Count (130-400) K/uL MPV (9.4-12.4) fL Immature Gran % (Auto) % Neut % (Auto) % Lymph % (Auto) % [place] % (Auto) % Eos % (Auto) % Baso % (Auto) % Neut # (Auto) (1.40-6.50) K/uL Lymph # (Auto) (1.20-3.40) K/uL [place] # (Auto) (0.11-0.59) K/uL Eos # (Auto) (0.00-0.50) K/uL Baso # (Auto) (0.00-0.20) K/uL Immature Gran # (Auto) (0.01-0.20) K/uL PT (9.0-12.0) Seconds INR (0.9-1.1) APTT (21-31) Seconds PTT Ratio Sodium (136-145) mmol/L Potassium (3.5-5.1) mmol/L Chloride (98-107) mmol/L Carbon Dioxide (21-32) mmol/L Anion Gap (3-11) BUN (6-23) mg/dl Creatinine (0.6-1.4) mg/dl Est Cr Clr Drug Dosing ml/min eGFR BUN/Creatinine Ratio (10-20) Glucose (70-99(Fasting)) mg/dl Calcium (8.6-10.3) mg/dl Total Bilirubin (0.2-1.0) mg/dl AST (13-39) U/L ALT (7-52) U/L Alkaline Phosphatase (34-104) U/L Troponin I High Sens (0-20) pg/ml Total Protein (6.0-8.3) gm/dl Albumin (3.4-5.0) gm/dl Globulin (2.5-4.0) gm/dl Albumin/Globulin Ratio (0.9-2) Lipase (11-82) U/L Urine Color Yellow Urine Appearance Clear (Clear) Urine pH 5.0 (4.5-7.5) Ur Specific [place] 1.019 (1.000-1.030) Urine Protein 2+ H (Negative) Urine Glucose (UA) 3+ H (Negative) Urine Ketones Negative (Negative) Urine Blood Trace H (Negative) Urine Nitrite Negative (Negative) Urine Bilirubin Negative (Negative) Urine Urobilinogen Negative (Negative) Ur Leukocyte Esterase Negative (Negative) Urine WBC (Auto) 0-5 (0-5) /hpf Urine RBC (Auto) 0-2 (0-2) /hpf U Hyaline Cast (Auto) 0-2 (0-2) /lpf U Epithel Cells (Auto) 0-2 (0-2) /hpf Urine Bacteria (Auto) None Seen (None Seen) SARS-CoV-2 (PCR) (Negative) Influenza Type A (PCR) (Neg) Influenza Type B (PCR) (Neg) RSV (RT-PCR) (Neg) Administered Medications Isosorbide Mononitrate (Isosorbide [place] Extended Rel 60 Mg Tabcr) 240 mg PO QAM ANGEL Stop: 06/09/24 09:44 Last Admin: 05/10/24 10:22 Dose: 240 mg Documented By: CECILY Morphine Sulfate (Morphine Sulfate 4 Mg/Ml 1 Ml Carp\\Vial) 4 mg IV Q15M PRN PRN Reason: Pain Stop: 05/24/24 06:44 Last Admin: 05/10/24 07:25 Dose: 4 mg Documented By: Admin: 05/10/24 06:58 Dose: 4 mg Documented By: CECILY Discontinued Medications Carvedilol (Carvedilol 12.5 Mg Tab) 12.5 mg PO NOW ONE Stop: 05/10/24 09:35 Last Admin: 05/10/24 10:07 Dose: Not Given Documented By: CECILY Carvedilol (Carvedilol 25 Mg Tab) 25 mg PO NOW ONE Stop: 05/10/24 10:04 Last Admin: 05/10/24 11:19 Dose: 25 mg Documented By: JESSICA Clopidogrel Bisulfate (Clopidogrel Bisulfate 75 Mg Tab) 75 mg PO NOW ONE Stop: 05/10/24 10:05 Last Admin: 05/10/24 10:57 Dose: 75 mg Documented By: CECILY Famotidine (Pepcid 20mg Iv Push) 20 mg in 5 mls @ 2.5 mls/min IV NOW STA Stop: 05/10/24 09:31 Last Admin: 05/10/24 10:06 Dose: 2.5 mls/min Documented By: CECILY Ondansetron HCl (Ondansetron Inj 2 Mg/Ml 2 Ml Vial) 4 mg IV NOW STA Stop: 05/10/24 06:46 Last Admin: 05/10/24 06:58 Dose: 4 mg Documented By: CECILY Imaging Data Attestation: I personally reviewed and interpreted this imaging study as follows: My Impression: CT of the abdomen and pelvis was obtained in the emergency department. My interpretation is no free air or definite bowel obstruction, final report below. CT of the chest was obtained. My interpretation is no free air, final report below Radiologist's Impression: Abdomen/Pelvis CT 05/10/24 06:48 EXAM: CT abd pelvis wo con CLINICAL HISTORY: c/o chest pain upper abdominal pain nausea/vomiting prior hx pancreatitis TECHNIQUE: Non-contrast CT of the abdomen and pelvis was performed, with the following protocol: axial images, and reconstructed coronal and sagittal images. One of the following dose reduction techniques was utilized for this exam: Automated exposure control, adjustment of the mA and/or kV according to patient size, and use of iterative reconstruction. COMPARISON: None. FINDINGS: Abdomen: Liver: Mild increased in size measure up to 20cm.No focal lesions, cysts, or masses were identified. Gallbladder and Biliary System: Multiple tiny gallstones were noted. The gallbladder is normal in size and shape. No wall thickening or pericholecystic fluid. Pancreas: Pancreatic head, body, and tail are visualized and appear normal in size and density. No pancreatic masses or calcifications were noted. Spleen: Moderate splenomegaly was noted measuring about 17.3cm. No splenic lesions or masses were identified. Appendix: The appendix is normal in size without reynaldo appendiceal fat stranding and without an appendicolith. No evidence of appendiceal abscess or perforation. Kidneys and Adrenal Glands: Bilateral reynaldo-renal fat strandings could be inflammatory changes. Both kidneys are normal in size, shape, and position. Cortical thickness is within normal limits. No renal calculi or hydronephrosis. Adrenal glands are unremarkable. Pelvis: Urinary Bladder: Normal in contour and wall thickness. No intraluminal lesions. Prostate: Normal in size and contour. No masses or abnormal thickening. Seminal Vesicles: Normal appearance without abnormal enlargement or mass. Peritoneal and Retroperitoneal Structures: No free fluid or abnormal fluid collections were identified within the abdomen or pelvis. No lymphadenopathy was noted. Bowel: The visualized bowel loops are normal in caliber and appearance. No evidence of bowel obstruction or wall thickening. Bones and Soft Tissues: A focal sclerosis in the right iliac bone adjacent to the SI joint and a small subchondral cyst in the left SI joint. No fractures or abnormal masses were identified. IMPRESSION: 1. Multiple gallstones without signs of cholecystitis. 2. Moderate splenomegaly and hepatomegaly. 3. Bilateral reynaldo-renal fat strandings could be inflammatory changes. Electronically signed by Elo Brown 05-10-2024 08:[address] 05/10/24 06:48 EXAM: CT chest diagnostic wo con CLINICAL HISTORY: upper abdominal pain TECHNIQUE: Contiguous axial CT images of the chest were acquired without administration of intravenous contrast. Coronal and sagittal reconstructions were obtained. One of the following dose reduction techniques were utilized for this exam: Automated exposure control, adjustment of the mA and/or kV according to patient size, use of iterative reconstruction. COMPARISON: none. FINDINGS: Lungs: Bilateral lower lobe mild cylindrical bronchiectasia. Bibasal subplural reticulonodular opacities are likely due to mild scarring changes. No evidence of consolidation or collapse. No pleural effusion or pleural thickening. Mediastinum: The mediastinum is normal in size and contour. No mediastinal mass or abnormal lymphadenopathy. The heart size is within normal limits. Hilar Structures: The hilar structures appear normal without enlargement or abnormality. Trachea and Main Bronchi: The trachea and main bronchi are patent without evidence of obstruction or abnormality. Chest Wall: The chest wall is unremarkable with no evidence of soft tissue or bony abnormalities. Upper Abdomen: Visualized portions of the liver, spleen, adrenal glands, and kidneys are unremarkable. Bones: Visualized osseous structures are normal, no evidence of fracture or lytic/sclerotic lesions. IMPRESSION: 1. Bilateral lower lobe mild cylindrical bronchiectasia. 2. Bibasal subplural reticulonodular opacities are likely due to mild scarring changes. Electronically signed by Elo Brown 05-10-2024 08:08 AM Discharge Plan Visit Data Chief Complaint: Cardiac Assessment Stated Complaint: CHEST PAIN, NAUSEA AND VOMITING ED Provider: Phillip Nicole Discharge Problem: Abdominal pain, Chronic kidney disease, stage 3b, Chest pain Patient Disposition: Being Evaluated by Hospitalist Forms Stand Alone Forms: [facility] Prescriptions Prescriptions: No Action allopurinol 100 mg tablet 200 mg PO BID Qty: 360 3RF (DME) lancets 30 gauge misc See Rx Instructions .Route Qty: 300 3RF Rx Instructions: test blood sugars three times a day isosorbide mononitrate 120 mg tablet extended release 24 hr 240 mg PO QAM Qty: 200 2RF (DME) Omnipod 5 G6 Pods (Gen 5) Cartridge See Rx Instructions .Route Qty: 10 11RF Rx Instructions: change pod every 3 days (DME) Omnipod 5 G6 Intro Kit (Gen 5) Cartridge See Rx Instructions .Route Qty: 1 0RF Rx Instructions: change pods every 3 days fluoxetine 60 mg tablet 60 mg PO QAM Qty: 90 3RF (DME) insulin syringe-needle U-100 [BD Insulin Syringe Ultra-Fine] 0.5 mL 30 gauge x 1/2" syringe See Rx Instructions .Route Qty: 200 11RF Rx Instructions: use new needle for injections 5 x daily (DME) OneTouch Verio test strips Strip See Rx Instructions .Route Qty: 300 3RF Rx Instructions: test blood sugars three times a day (DME) Dexcom G7 Engine Lathe 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 per pt he does 200 units last for 3 days metolazone 5 mg tablet 5 mg PO DAILY PRN (Reason: weight gain) Qty: 1 0RF carvedilol 12.5 mg tablet 25 mg PO BID losartan 25 mg tablet 50 mg PO QAM Hold Instructions: Resume on 08/02/22. furosemide 40 mg tablet 40 mg PO BID clopidogrel 75 mg tablet 75 mg PO QAM Rx Instructions: TAKE 1 TABLET BY MOUTH ONCE DAILY potassium chloride 20 mEq tablet extended release 20 meq PO UD Rx Instructions: 1- 2 tablets AM and 1 tablet in the PM; dapagliflozin propanediol [Farxiga] 10 mg tablet 10 mg PO QAM Trelegy Ellipta 200-62.5-25 mcg blister with device 1 inh inhalation QAM Referrals Referrals: Qamar Handy DO [Primary Care Provider] -
[2024-05-10] MEDS: ONDANSETRON INJ 2 MG/ML 2 ML VIAL IV STA (06:58)
[2024-05-10] MEDS: MoRPHine SULFATE 4 MG/ML 1 ML CARP\\VIAL IV PRN (06:58)
[2024-05-10 07:28] LABS: Basophils # (auto) 0.02 K/uL (0.00-0.20); Basophils % (auto) 0.3 %; Eosinophils # (auto) 0.22 K/uL (0.00-0.50); Eosinophils % (auto) 3.8 %; Hematocrit (blood only) 49.6 % (42.0-52.0); Hemoglobin 16.7 g/dl (14.0-18.0); Immature Granulocytes # (auto) 0.03 K/uL (0.01-0.20); Immature Granulocytes % (auto) 0.5 %; Lymphocytes # (auto) 0.84 K/uL (1.20-3.40); Lymphocytes % (auto) 14.6 %; Mean Corpuscular Hemoglobin 27.5 pg (25.0-34.0); Mean Corpuscular Hgb Conc 33.7 g/dL (32.0-36.0); Mean Corpuscular Volume 81.7 fL (80.0-100.0); Mean Platelet Volume 9.7 fL (9.4-12.4); Monocytes # (auto) 0.62 K/uL (0.11-0.59); Monocytes % (auto) 10.8 %; Neutrophils # (auto) 4.01 K/uL (1.40-6.50); Platelet Count 130 K/uL (130-400); RDW Coefficient of Variation 15.6 % (11.5-14.5); RDW Standard Deviation 44.5 fL (36.4-46.3); Red Blood Count 6.07 M/uL (4.70-6.10); White Blood Count 5.74 K/ul (4.8-10.8)
[2024-05-10 07:36] LABS: Albumin Globulin Ratio 1.1 (0.9-2); Albumin Level 4.1 gm/dl (3.4-5.0); BUN Creatinine Ratio 23.4 (10-20); Calcium 9.2 mg/dl (8.6-10.3); Creatinine Clr Calc Pharmacy 38.9 ml/min; Globulin 3.6 gm/dl (2.5-4.0); Potassium 3.7 mmol/L (3.5-5.1); Total Protein 7.7 gm/dl (6.0-8.3)
[2024-05-10 07:41] LABS: Troponin I High Sensitivity 11.7 pg/ml (0-20)
[2024-05-10 07:50] LABS: Influenza A virus by PCR Negative (Neg); Influenza B virus by PCR Negative (Neg); RSV by PCR Negative (Neg); SARS CoV2 RNA(COVID-19) Ceph NEGATIVE (Negative)
[2024-05-10 08:08] LABS: Partial Thromboplastin Ratio 1.3; Partial Thromboplastin Time 34 Seconds (21-31); Prothrombin Time 10.9 Seconds (9.0-12.0)
--- NOTE | 2024-05-10 08:08 | CT Scan Report ---
EXAM: CT chest diagnostic wo con CLINICAL HISTORY: upper abdominal pain TECHNIQUE: Contiguous axial CT images of the chest were acquired without administration of intravenous contrast. Coronal and sagittal reconstructions were obtained. One of the following dose reduction techniques were utilized for this exam: Automated exposure control, adjustment of the mA and/or kV according to patient size, use of iterative reconstruction. COMPARISON: none. FINDINGS: Lungs: Bilateral lower lobe mild cylindrical bronchiectasia. Bibasal subplural reticulonodular opacities are likely due to mild scarring changes. No evidence of consolidation or collapse. No pleural effusion or pleural thickening. Mediastinum: The mediastinum is normal in size and contour. No mediastinal mass or abnormal lymphadenopathy. The heart size is within normal limits. Hilar Structures: The hilar structures appear normal without enlargement or abnormality. Trachea and Main Bronchi: The trachea and main bronchi are patent without evidence of obstruction or abnormality. Chest Wall: The chest wall is unremarkable with no evidence of soft tissue or bony abnormalities. Upper Abdomen: Visualized portions of the liver, spleen, adrenal glands, and kidneys are unremarkable. Bones: Visualized osseous structures are normal, no evidence of fracture or lytic/sclerotic lesions. IMPRESSION: 1. Bilateral lower lobe mild cylindrical bronchiectasia. 2. Bibasal subplural reticulonodular opacities are likely due to mild scarring changes. Electronically signed by Elo Brown 05-10-2024 08:08 AM
--- NOTE | 2024-05-10 08:11 | CT Scan Report ---
EXAM: CT abd pelvis wo con CLINICAL HISTORY: c/o chest pain upper abdominal pain nausea/vomiting prior hx pancreatitis TECHNIQUE: Non-contrast CT of the abdomen and pelvis was performed, with the following protocol: axial images, and reconstructed coronal and sagittal images. One of the following dose reduction techniques was utilized for this exam: Automated exposure control, adjustment of the mA and/or kV according to patient size, and use of iterative reconstruction. COMPARISON: None. FINDINGS: Abdomen: Liver: Mild increased in size measure up to 20cm.No focal lesions, cysts, or masses were identified. Gallbladder and Biliary System: Multiple tiny gallstones were noted. The gallbladder is normal in size and shape. No wall thickening or pericholecystic fluid. Pancreas: Pancreatic head, body, and tail are visualized and appear normal in size and density. No pancreatic masses or calcifications were noted. Spleen: Moderate splenomegaly was noted measuring about 17.3cm. No splenic lesions or masses were identified. Appendix: The appendix is normal in size without reynaldo appendiceal fat stranding and without an appendicolith. No evidence of appendiceal abscess or perforation. Kidneys and Adrenal Glands: Bilateral reynaldo-renal fat strandings could be inflammatory changes. Both kidneys are normal in size, shape, and position. Cortical thickness is within normal limits. No renal calculi or hydronephrosis. Adrenal glands are unremarkable. Pelvis: Urinary Bladder: Normal in contour and wall thickness. No intraluminal lesions. Prostate: Normal in size and contour. No masses or abnormal thickening. Seminal Vesicles: Normal appearance without abnormal enlargement or mass. Peritoneal and Retroperitoneal Structures: No free fluid or abnormal fluid collections were identified within the abdomen or pelvis. No lymphadenopathy was noted. Bowel: The visualized bowel loops are normal in caliber and appearance. No evidence of bowel obstruction or wall thickening. Bones and Soft Tissues: A focal sclerosis in the right iliac bone adjacent to the SI joint and a small subchondral cyst in the left SI joint. No fractures or abnormal masses were identified. IMPRESSION: 1. Multiple gallstones without signs of cholecystitis. 2. Moderate splenomegaly and hepatomegaly. 3. Bilateral reynaldo-renal fat strandings could be inflammatory changes. Electronically signed by Elo Brown 05-10-2024 08:10 AM
--- NOTE | 2024-05-10 08:57 | History & Physical Report ---
Date of Service May 10, 2024 Assessment & Plan (1) Viral gastroenteritis: (2) Diabetes type 2, controlled: (3) (HFpEF) heart failure with preserved ejection fraction: Roseanna Veloz is a 69-year-old male with PMH of T2DM, HFpEF, CKD, anxiety, depression, COPD, alpha 1 antitrypsin deficiency, and dyslipidemia. He presented via EMS on 05/10 for epigastric pain that began around 0200. Patient reports that the pain woke him from sleep, and initially he was feeling very bloated, so he got up and took Gas-X. This did not help his symptoms, and it gradually worsened throughout the night. He developed nausea and dry heaves overnight, and when he woke his up around 5 AM, he told her he was having chest pain. Patient gave him a nitro, but he reports he threw it back up. He reports the pain is largely epigastric, and transverse across his upper abdomen. #Epigastric pain/viral GI illness Chest CT without contrast revealed bronchiectasia Troponin WNL on arrival, repeat pending EKG okay on arrival Continuous telemetry monitoring for now Patient denies diarrhea on admission, suspect this might be secondary to either viral GI illness Will defer PCR stool on admission #Nausea and vomiting Lipase WNL A/P CT revealed moderate splenomegaly and hepatomegaly IV antiemetics as needed; QTc okay on arrival Famotidine 20 mg IV QAM Encourage p.o. fluids once patient is tolerating #HTN Continue carvedilol, losartan #T2DM Last A1c at 5.2% on 04/21/2024 Hold dapagliflozin Patient is requesting to continue use of his home OmniPod Okay to continue BSG ACHS T2DM diet Adjust regimen as needed #HFpEF Continue Lasix, K supplementation Continue metolazone #CKD BUN 46, creatinine 1.97 (around his baseline) Creatinine clearance >30, okay to continue losartan #History of heart stent Continue Plavix Disposition: Obs -admit to [facility] telemetry DNR/DNI T2DM diet VTE PPx: Lovenox 40 mg SQ q24h History of Present Illness Chief Complaint: Epigastric pain Primary Care Provider: Qamar Handy DO Magdiel is a 69-year-old male with PMH of T2DM, HFpEF, CKD, anxiety, depression, COPD, alpha 1 antitrypsin deficiency, and dyslipidemia. He presented via EMS on 05/10 for epigastric pain that began around 0200. Patient reports that the pain woke him from sleep, and initially he was feeling very bloated, so he got up and took Gas-X. This did not help his symptoms, and it gradually worsened throughout the night. He developed nausea and dry heaves overnight, and when he woke his up around 5 AM, he told her he was having chest pain. Patient gave him a nitro, but he reports he threw it back up. He reports the pain is largely epigastric, and transverse across his upper abdomen. He characterizes it as an intermittent, dull, achy pain which he rates 3/10 after receiving morphine in the ED, and 10/10 at worst. No radiation to the shoulders, jaws, back, or arms. Patient denies prior history of MIs. Patient did not take any of his regular morning medicine today. He did not take any pain medicine prior to coming into the hospital. He also reports that he threw up in the ambulance. Patient was given 3 doses of nitro en route. Patient does have a cardiac history; history of CHF and a heart stent. He reports good compliance with taking his Lasix. While he has had some weight gain recently, he reports he watches his salt intake. No sick contacts to his knowledge. While he still having some residual epigastric pain, he reports he is chest pain-free at time of admission. No prior history of GERD or reflux to his knowledge. No recent change in diet; he reports he had barbecue last night, but normally this does not block his stomach. No prior history of issues with his gallbladder. No recent falls or injuries to the abdomen or chest wall. Patient was having some shortness of breath this morning, which he believes might have been secondary to the epigastric pain. He denies smoking, tobacco use, recent alcohol use. Patient is hypertensive at 153/134 at time of admission; vitals otherwise stable. ED course: Morphine sulfate 4 mg IV Zofran 4 mg IV ROS: Patient endorses fever, SOB at rest and exertion during the event, dry cough, epigastric pain, nausea, and vomiting. Patient denies body aches, chills, dizziness, lightheadedness, changes in vision, photophobia, headaches, pleuritic CP, diarrhea, melena, burning with urination, blood in the urine/stool, or numbness/tingling in the arms or legs. Allergies Allergy/AdvReac Type Severity Reaction Status Date / Time ketorolac [From Toradol] Allergy Severe kidney Verified 04/07/24 13:24 failure NSAIDS (Non-Steroidal Allergy Unknown Unknown Verified 04/07/24 13:24 Anti-Inflamma Lyrfhoj-HTJ-QiV Reductase AdvReac Intermediate Muscle pain Verified 04/07/24 13:24 Inhibitor [Gbxohis-Wco-Cis Reductase Inhibitor] Home Medications Medication Instructions Recorded Confirmed Type allopurinol 100 mg tablet 200 mg (2 x 100 mg) PO BID #360 06/23/20 04/21/24 Rx tabs dapagliflozin propanediol 10 mg 10 mg PO DAILY #90 tabs 09/29/22 04/29/24 Rx tablet (Farxiga) lancets 30 gauge #300 ea 05/29/23 04/21/24 Rx isosorbide mononitrate 120 mg 240 mg (2 x 120 mg) PO QAM #200 10/09/23 04/21/24 Rx tablet,extended release 24 hr tabs blood-glucose meter,continuous #1 ea 11/08/23 04/21/24 Rx (Dexcom G7 Research Phlebotomist) blood-glucose sensor (Dexcom G7 #3 ea 11/08/23 04/21/24 Rx Sensor device) insulin pump cart,automated,BT #10 ea 12/03/23 04/21/24 Rx (Omnipod 5 G6 Pods (Gen 5) subcutaneous cartridge) insulin pump cartridge,automated #1 ea 12/06/23 04/21/24 Rx dose,BT with controller subcutaneous (Omnipod 5 G6 Intro Kit (Gen 5) subcutaneous cartridge with controller) clopidogrel 75 mg tablet 75 mg PO DAILY 03/03/24 04/21/24 History furosemide 40 mg tablet 40 mg PO BID 03/12/24 04/29/24 History fluoxetine 60 mg tablet 60 mg PO QAM #90 tabs 04/02/24 04/29/24 Rx insulin syringe-needle U-100 0.5 #200 ea 04/18/24 04/21/24 Rx mL 30 gauge x 1/2" (BD Insulin Syringe Ultra-Fine) insulin aspart U-100 100 unit/mL 100 unit subcut DAILY 04/21/24 04/29/24 History subcutaneous solution (Novolog U-100 Insulin aspart) metolazone 5 mg tablet 5 mg PO DAILY PRN weight gain #1 04/29/24 04/29/24 Rx tab carvedilol 12.5 mg tablet 25 mg PO BID 04/30/24 04/30/24 History losartan 25 mg tablet 50 mg PO DAILY 04/30/24 04/30/24 History potassium chloride 20 mEq 20 meq PO UD 04/30/24 04/21/24 History tablet,extended release fluticasone fur. 200 mcg-umeclid 1 inh inhalation DAILY #60 ea 05/02/24 Rx 62.5 mcg-vilant 25 mcg inhalat.powder (Trelegy Ellipta) OneTouch Verio test strips (blood #300 ea 05/05/24 Rx sugar diagnostic) Past Med/Surg History Problem List (Updated 05/10/24 @ 09:46 by Alonso Mckeon PA-C) Viral gastroenteritis Diabetes type 2, controlled Chronic cough (HFpEF) heart failure with preserved ejection fraction (Acute) Diabetic nephropathy associated with type 2 diabetes mellitus Chronic kidney disease, stage 3b Cardiomyopathy Anxiety and depression Moderate COPD (chronic obstructive pulmonary disease) Nonobstructive atherosclerosis of coronary artery Fatty liver (Chronic) Hypertension Ywogs-4-yjmyjdmdoyo deficiency Anemia of chronic disease Dyslipidemia Asbestosis Medical History Obesity Vitamin D deficiency Statin myopathy Sleep apnea Sensorineural hearing loss (SNHL) of both ears Splenomegaly History of pancreatitis History of kidney injury Cervical radiculopathy right C8 Pulmonary nodules Gout Diverticular disease Glaucoma NO MEDICATIONS. "PRE-GLAUMCOMA" Surgical History Fusion of spine C4-7 ACDF S/P trigger finger release right and left hands H/O elbow surgery LEFT S/P Achilles tendon repair LEFT History of esophagogastroduodenoscopy (EGD) History of colonoscopy History of tonsillectomy History of cardiac cath NO STENTS. FOLLOWS WITH DR. PRYOR. S/P wrist surgery H/O cervical spine surgery Family History Grandmother Family history of diabetes mellitus Uncle Family history of diabetes mellitus Father COPD (chronic obstructive pulmonary disease) Lung disease Mother Hypertension Aunt Colorectal cancer Denies family history of Ovarian cancer Prostate cancer Myocardial infarction Breast cancer Social History Smoking Status: Former smoker Tobacco Type: Cigars Age Started Using Tobacco: 20; Cigarettes Per Day: Rare cigar smoker, ~1x month; Second Hand Exposure: No; Do You Dip or Chew Tobacco: No; Hx Alcohol Use: No Hx Substance Use: No Preferred Language: Jamaican Communication Ability: Effective Visual Impairment: No Limitations Hearing Ability: Hard of Hearing Director Writing Required: No Beliefs That Will Affect Care: None marital status: Current Living Situation: Spouse Current Living Situation Comment: home w spouse current occupational status: employed and disabled 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 [employer] Feels Safe at Home: Yes Childhood Exposure to Second-Hand Smoke: Yes Diet: diabetic, low salt and regular caffeine: Yes (very rare) during the past year weight has: remained stable Dental Care, Regularly: No Physical Activity Frequency: Does not Exercise Seatbelt Use: always Sunscreen Use: No Assistive Devices: Oxygen - at Night Review of Systems Review of Systems: See HPI above Physical Exam Physical Exam: General: no acute distress; pleasant affect; at bedside; non-toxic appearing; cooperative; SpO2 90% on RA HEENT: normocephalic, atraumatic; no scleral icterus; PERRLA w/ EOMs intact; vision and hearing grossly intact Neck: supple; no lymphadenopathy; trachea midline Skin: Superficial scratching noted on the right shoulder and abdomen; warm, dry without signs of tenting; no cyanosis CV: chest wall NTP; RRR; S1/S2 normal; no murmurs/rubs/gallops; pulses intact a nd symmetric at radial, DP, and PT Lungs: no acute respiratory distress; symmetrical chest wall expansion; clear breath sounds across all lung delgadillo w/o adventitious sounds; no wheezing ABD: Soft, NTP; BS present; no rebound/guarding; mild distention secondary to body habitus MSK: no tics or fasciculations; no edema noted in the LEs b/l, nonerythematous Neuro: A&Ox3; normal mood and affect; fluent speech; no focal deficits; sensation intact and symmetric in the lower extremities bilaterally Results & Data Results & Data Vital Signs (Past 12 Hours) Vital Signs Temp Pulse Pulse Resp BP BP Pulse Ox 05/10/24 08:42 80 17 95 05/10/24 08:33 73 19 97 05/10/24 08:33 173/134 H 05/10/24 08:30 81 20 98 05/10/24 08:16 70 05/10/24 08:12 81 20 96 05/10/24 08:00 199/116 H 05/10/24 07:51 77 13 96 05/10/24 07:51 205/108 H 05/10/24 07:36 71 18 97 05/10/24 07:26 69 16 204/118 H 96 05/10/24 07:15 96 05/10/24 07:00 74 20 202/90 H 05/10/24 06:45 36.7 C 78 20 189/126 H 96 O2 Del Method 05/10/24 08:42 05/10/24 08:33 05/10/24 08:33 05/10/24 08:30 05/10/24 08:16 05/10/24 08:12 05/10/24 08:00 05/10/24 07:51 05/10/24 07:51 05/10/24 07:36 05/10/24 07:26 Room Air 05/10/24 07:15 Room Air 05/10/24 07:00 05/10/24 06:45 Room Air Laboratory Results Abnormal lab results 05/10/24 Range/Units 07:03 RDW Coeff of Junito 15.6 H (11.5-14.5) % Lymph # (Auto) 0.84 L (1.20-3.40) K/uL [place] # (Auto) 0.62 H (0.11-0.59) K/uL APTT 34 H (21-31) Seconds BUN 46 H (6-23) mg/dl Creatinine 1.97 H (0.6-1.4) mg/dl BUN/Creatinine Ratio 23.4 H (10-20) Glucose 170 H (70-99(Fasting)) mg/dl Diagnostic Findings Abdomen/Pelvis CT 05/10/24 06:48 EXAM: CT abd pelvis wo con CLINICAL HISTORY: c/o chest pain upper abdominal pain nausea/vomiting prior hx pancreatitis TECHNIQUE: Non-contrast CT of the abdomen and pelvis was performed, with the following protocol: axial images, and reconstructed coronal and sagittal images. One of the following dose reduction techniques was utilized for this exam: Automated exposure control, adjustment of the mA and/or kV according to patient size, and use of iterative reconstruction. COMPARISON: None. FINDINGS: Abdomen: Liver: Mild increased in size measure up to 20cm.No focal lesions, cysts, or masses were identified. Gallbladder and Biliary System: Multiple tiny gallstones were noted. The gallbladder is normal in size and shape. No wall thickening or pericholecystic fluid. Pancreas: Pancreatic head, body, and tail are visualized and appear normal in size and density. No pancreatic masses or calcifications were noted. Spleen: Moderate splenomegaly was noted measuring about 17.3cm. No splenic lesions or masses were identified. Appendix: The appendix is normal in size without reynaldo appendiceal fat stranding and without an appendicolith. No evidence of appendiceal abscess or perforation. Kidneys and Adrenal Glands: Bilateral reynaldo-renal fat strandings could be inflammatory changes. Both kidneys are normal in size, shape, and position. Cortical thickness is within normal limits. No renal calculi or hydronephrosis. Adrenal glands are unremarkable. Pelvis: Urinary Bladder: Normal in contour and wall thickness. No intraluminal lesions. Prostate: Normal in size and contour. No masses or abnormal thickening. Seminal Vesicles: Normal appearance without abnormal enlargement or mass. Peritoneal and Retroperitoneal Structures: No free fluid or abnormal fluid collections were identified within the abdomen or pelvis. No lymphadenopathy was noted. Bowel: The visualized bowel loops are normal in caliber and appearance. No evidence of bowel obstruction or wall thickening. Bones and Soft Tissues: A focal sclerosis in the right iliac bone adjacent to the SI joint and a small subchondral cyst in the left SI joint. No fractures or abnormal masses were identified. IMPRESSION: 1. Multiple gallstones without signs of cholecystitis. 2. Moderate splenomegaly and hepatomegaly. 3. Bilateral reynaldo-renal fat strandings could be inflammatory changes. Electronically signed by Elo Brown 05-10-2024 08:[address] 05/10/24 06:48 EXAM: CT chest diagnostic wo con CLINICAL HISTORY: upper abdominal pain TECHNIQUE: Contiguous axial CT images of the chest were acquired without administration of intravenous contrast. Coronal and sagittal reconstructions were obtained. One of the following dose reduction techniques were utilized for this exam: Automated exposure control, adjustment of the mA and/or kV according to patient size, use of iterative reconstruction. COMPARISON: none. FINDINGS: Lungs: Bilateral lower lobe mild cylindrical bronchiectasia. Bibasal subplural reticulonodular opacities are likely due to mild scarring changes. No evidence of consolidation or collapse. No pleural effusion or pleural thickening. Mediastinum: The mediastinum is normal in size and contour. No mediastinal mass or abnormal lymphadenopathy. The heart size is within normal limits. Hilar Structures: The hilar structures appear normal without enlargement or abnormality. Trachea and Main Bronchi: The trachea and main bronchi are patent without evidence of obstruction or abnormality. Chest Wall: The chest wall is unremarkable with no evidence of soft tissue or bony abnormalities. Upper Abdomen: Visualized portions of the liver, spleen, adrenal glands, and kidneys are unremarkable. Bones: Visualized osseous structures are normal, no evidence of fracture or lytic/sclerotic lesions. IMPRESSION: 1. Bilateral lower lobe mild cylindrical bronchiectasia. 2. Bibasal subplural reticulonodular opacities are likely due to mild scarring changes. Electronically signed by Elo Brown 05-10-2024 08:08 AM ECG Additional Comments: ECG revealed NSR with sinus arrhythmia at 69 bpm; QTc 454 Code Status & VTE Plan VTE Prophylaxis Plan VTE Prophylaxis will be ordered: Yes Supervising Physician Co-Signing Physician Notes Patient seen and examined, chart reviewed, case discussed with Alonso Mckeon PA-C and I agree with the assessment and plan as above except as otherwise noted Labs and images reviewed Magdiel is a 69year-old male with a past medical history of HFpEF, DM 2, nonobstructive CAD, moderate COPD, alpha antitrypsin deficiency who developed epigastric and substernal chest pain overnight Forgey contacted 911 and was brought to the ER. He did initially try Gas-X for bloating but did not have any improvement and had progression of his chest pain around 5 AM with an episode of vomiting so presented to the ER for evaluation. Patient has epigastric discomfort to palpation. Nausea/vomiting nonbloody. CTA/P without significant evidence of infection although some perirenal fat stranding was noted and chronic splenomegaly/hepatomegaly are noted. Lipase was normal and no evidence of pancreatitis radiographically. EKG was without acute ischemic changes and troponin was normal. Discomfort is more epigastric and suspect a viral GI illness. Patient is chest pain-free at time of admission. Renal function is near baseline. Quad screen is negative. Chest CT is with chronic mild bronchiectasia and some reticulonodular opacities but no acute changes. Did discuss potential return home however patient with uptrending blood pressures and at time of reassessment greater than 200 systolic x 2. He did not take his morning medications due to his nausea could not keep these down. Nausea is improving with symptomatic treatment. Home blood pressure medications ordered stat, and if not able to keep these down or still marked blood pressure elevation will give labetalol IV x 1 for hypertension and potential beta-ponce withdrawal. Will admit for observation until able to adequately tolerate p.o. No clear indication for antibiotics on admission. He has not had any urinary symptoms, does have some renal stranding and UA is pending. No fever chills or sweats and no leukocytosis. Suspect viral GI illness, will continue to follow as noted. Agree with above. On provider exam patient is focally tender at the epigastrium but without rebound/guarding/rigidity. Lungs are clear. PG Care Time/CCT Total # of Minutes Spent Total Time Spent with Patient: Total time spent is greater than 50% in coordination of care (as documented) at patient's floor/unit and/or counseling patient: Coding [place] [address] INT INP/OBS CARE 2/55MIN Patient Type Established History Comprehensive Exam Comprehensive Medical Decision Making Moderate Complexity Diagnoses Viral gastroenteritis A08.4 Diabetes type 2, controlled E11.9 (HFpEF) heart failure with preserved ejection fraction I50.33 Heart failure chronicity: acute on chronic (3) (HFpEF) heart failure with preserved ejection fraction Heart failure chronicity: acute on chronic Qualified Code(s): I50.33 - Acute on chronic diastolic (congestive) heart failure
[2024-05-10] MEDS: FAMOTIDINE 20MG IV PUSH 20 MG/5 ML SYR IV STA (10:06)
[2024-05-10] MEDS: carvediloL 12.5 MG TAB PO ONE (10:07)
[2024-05-10] MEDS: ISOSORBIDE MONO EXTENDED REL 60 MG TABCR PO SCH (10:22)
[2024-05-10] MEDS: CLOPIDOGREL BISULFATE 75 MG TAB PO ONE (10:57)
[2024-05-10 11:13] LABS: Appearance Urine Clear (Clear); Bacteria Urine Automated None Seen (None Seen); Bilirubin Urine Negative (Negative); Blood Urine Trace (Negative); Cast Urine Automated 0-2 /lpf (0-2); Color Urine Yellow; Epithelial Cell Urine Auto 0-2 /hpf (0-2); Glucose Urine UA 3+ (Negative); Ketones Urine Negative (Negative); Leukocyte Esterase Urine Negative (Negative); Nitrite Urine Negative (Negative); Protein Urine 2+ (Negative); RBC Urine Automated 0-2 /hpf (0-2); Specific Gravity Urine 1.019 (1.000-1.030); Urobilinogen Urine Negative (Negative); WBC Urine Automated 0-5 /hpf (0-5)
--- NOTE | 2024-05-10 11:18 | Electrocardiogram Report ---
Test Reason : Blood Pressure : */* mmHG Vent. Rate : 69 BPM Atrial Rate : 77 BPM P-R Int : 202 ms QRS Dur : 120 ms QT Int : 424 ms P-R-T Axes : 48 75 54 degrees QTcB Int : 454 ms Normal sinus rhythm with sinus arrhythmia Right bundle branch block Borderline ECG When compared with ECG of 03-Mar-2024 13:54, No significant change was found Confirmed by Narciso Hurtado ([id number]) on 05/10/2024 11:17:56 AM Referred By: REFERRED SELF Confirmed By: Narciso Hurtado
[2024-05-10] MEDS: carvediloL 25 MG TAB PO ONE (11:19)
[2024-05-10] MEDS ORDERED: GLUCOSE 40% GEL 15 GM TUBE PO PRN (14:13)
[2024-05-10] MEDS ORDERED: GLUCOSE 10 TAB/TUBE PO PRN (14:13)
[2024-05-10] MEDS ORDERED: DEXTROSE 50% 50 ML SYRINGE IV PRN (14:13)
[2024-05-10] MEDS ORDERED: GLUCAGON FOR INJ 1 MG VIAL SQ PRN (14:13)
[2024-05-10] MEDS ORDERED: CARBOHYDRATES FOR HYPOGLYCEMIA PO PRN (14:13)
[2024-05-10] MEDS: POTASSIUM CHLORIDE CRTAB 20 MEQ TABCR PO SCH (14:43)
[2024-05-10] MEDS: FUROSEMIDE 40 MG TAB PO SCH (14:43)
[2024-05-10] MEDS: FLUoxetine HCL 20 MG CAP PO SCH (17:36)
[2024-05-10] MEDS: carvediloL 25 MG TAB PO SCH (17:37)
[2024-05-10] MEDS: ONDANSETRON INJ 2 MG/ML 2 ML VIAL IV PRN (17:39)
[2024-05-10] MEDS: ACETAMINOPHEN 325 MG TAB PO PRN (18:25)
[2024-05-10] MEDS: ENOXAPARIN INJ 40 MG/0.4 ML SYR SQ SCH (19:53)
[2024-05-10] MEDS: allopurinoL 100 MG TAB PO SCH (19:54)
[2024-05-11] MEDS: SODIUM CHLORIDE 0.9% 500 ML IV SCH (03:02)
[2024-05-11] MEDS: ALBUMIN 25% 25 GM/100 ML VIAL IV ONE (05:08)
[2024-05-11 08:05] LABS: Basophils # (auto) 0.01 K/uL (0.00-0.20); Basophils % (auto) 0.1 %; Eosinophils # (auto) 0.01 K/uL (0.00-0.50); Eosinophils % (auto) 0.1 %; Hematocrit (blood only) 41.1 % (42.0-52.0); Hemoglobin 14.1 g/dl (14.0-18.0); Immature Granulocytes # (auto) 0.09 K/uL (0.01-0.20); Lymphocytes # (auto) 0.46 K/uL (1.20-3.40); Lymphocytes % (auto) 4.9 %; Mean Corpuscular Hemoglobin 28.3 pg (25.0-34.0); Mean Corpuscular Hgb Conc 34.3 g/dL (32.0-36.0); Mean Corpuscular Volume 82.5 fL (80.0-100.0); Mean Platelet Volume 9.7 fL (9.4-12.4); Monocytes # (auto) 1.15 K/uL (0.11-0.59); Monocytes % (auto) 12.2 %; Neutrophils # (auto) 7.68 K/uL (1.40-6.50); Neutrophils % (auto) 81.7 %; Platelet Count 128 K/uL (130-400); RDW Standard Deviation 44.4 fL (36.4-46.3); Red Blood Count 4.98 M/uL (4.70-6.10)
[2024-05-11 08:34] LABS: BUN Creatinine Ratio 16.8 (10-20); Calcium 9.1 mg/dl (8.6-10.3); Creatinine Clr Calc Pharmacy 24.7 ml/min; Potassium 4.5 mmol/L (3.5-5.1)
[2024-05-11] MEDS: UMECLIDINIUM/VILANTEROL 62.5/25MCG 7 PUFFS/INHALER INH SCH (08:47)
[2024-05-11] MEDS: FLUTICASONE FUROATE 200MCG 14 PUFFS/INHALER INH SCH (08:47)
[2024-05-11] MEDS: CLOPIDOGREL BISULFATE 75 MG TAB PO SCH (08:49)
[2024-05-11] MEDS: LOSARTAN POTASSIUM 50 MG TAB PO SCH (08:49)
[2024-05-11] MEDS: FAMOTIDINE 20MG IV PUSH 20 MG/5 ML SYR IV SCH (08:51)
[2024-05-11] MEDS ORDERED: NON-FORMULARY MEDICATION (Fluticasone-Umeclidin-Vilanter [Trelegy Ellipta] 200-62.5-25 mcg INH SCH (09:00)
[2024-05-11] MEDS: LACTATED RINGER'S 1,000 ML IV SCH (10:37)
[2024-05-11 10:48] LABS: Bilirubin Direct 6.2 mg/dl (0-0.2); Bilirubin,Total 9.1 mg/dl (0.2-1.0); Total Protein 6.8 gm/dl (6.0-8.3)
[2024-05-11] MEDS: HYDROmorphone INJ 0.5 MG/0.5 ML SYR IV PRN (11:06)
--- NOTE | 2024-05-11 12:33 | Ultrasound Report ---
US gallbladder CLINICAL HISTORY: Epigastric pain. COMPARISON STUDY: Right upper quadrant ultrasound June 15, 2017. CT of the abdomen and pelvis 2024 FINDINGS: No hepatic lesions are identified. There is no biliary ductal dilatation. The common bile d uct measures 5 mm in caliber. There are stones and sludge within the gallbladder. Sonographic Dwyer sign was reported by the technologist. The gallbladder is mildly distended. There is mild gallbladder wall thickening. Pancreas is unremarkable by sonography although the head and tail are slightly obsc ured. There is no right hydronephrosis. IMPRESSION: 1. Cholelithiasis with positive sonographic Dwyer sign. Mild gallbladder distention and mild gallbla dder wall thickening. These findings may represent acute cholecystitis. Nuclear medicine hepatobilia ry scan could be obtained for further evaluation. 2. No biliary ductal dilatation. ACT 112: Negative or not required by law. Electronically signed by: Mathew Castanon M.D. 05/11/2024 12:30 PM
--- NOTE | 2024-05-11 13:47 | Gastrointestinal Consultation ---
Date of Consultation May 11, 2024 Assessment & Plan (1) Obstructive jaundice: Patient has biliary colic. Liver enzymes certainly concerning for common duct stone. The stones in the gallbladder are small. His duct is small. An MRCP if negative would not confirm or definitively exclude a stone. Patient would benefit from ERCP. Complicating this decision is thrombocytopenia and Plavix use. This represents an increased risk of bleeding. Patient has alpha-1 antitrypsin. May have underlying liver disease such as portal hypertension. Also will increase risk of procedure. I think a 5-day wait to be off Plavix with current presentation is too long. I think we can proceed with an ERCP but plan stent placement if the stone rather than sphincterotomy with its inherent risks of bleeding. Reviewed risks of the procedure including pancreatitis increased bleeding risk with the patient. Voi garrick understanding. Informed consent obtained With history underlying liver disease and low platelets likely have an EGD prior to ERCP to evaluate for unknown esophageal varices. (2) Anticoagulant long-term use: Plavix (3) Thrombocytopenia: Platelets 129. (4) Euhxr-5-spanamsumxu deficiency: History of Present Illness Reason for Consultation: Biliary colic. Elevated liver function test, suspected common duct stone Attending Physician: Wilma Loving MD History of Present Illness 78-year-old gentleman admitted last evening. Onset of abdominal pain. Epigastric now right upper quadrant. Imaging shows normal bile duct though gallbladder shows multiple tiny stones. Bilirubin level currently 9. Continues to have pain. Lipase is normal. Patient is on Plavix. Last dose within 24 hours. Had clear liquids at 1:10 PM water Patient is currently getting Zosyn GI consulted probable common duct stone Allergies Allergy/AdvReac Type Severity Reaction Status Date / Time ketorolac [From Toradol] Allergy Severe kidney Verified 04/07/24 13:24 failure NSAIDS (Non-Steroidal Allergy Unknown Unknown Verified 04/07/24 13:24 Anti-Inflamma Shhenny-ICM-AsD Reductase AdvReac Intermediate Muscle pain Verified 04/07/24 13:24 Inhibitor [Hlzzzpz-Qms-Vip Reductase Inhibitor] Home Medications Medication Instructions Recorded Confirmed Type allopurinol 100 mg tablet 200 mg (2 x 100 mg) PO BID #360 06/23/20 05/10/24 Rx tabs lancets 30 gauge #300 ea 05/29/23 04/21/24 Rx isosorbide mononitrate 120 mg 240 mg (2 x 120 mg) PO QAM #200 10/09/23 05/10/24 Rx tablet,extended release 24 hr tabs blood-glucose meter,continuous #1 ea 11/08/23 04/21/24 Rx (Dexcom G7 Claims Administrator) blood-glucose sensor (Dexcom G7 #3 ea 11/08/23 04/21/24 Rx Sensor device) insulin pump cart,automated,BT #10 ea 12/03/23 04/21/24 Rx (Omnipod 5 G6 Pods (Gen 5) subcutaneous cartridge) insulin pump cartridge,automated #1 ea 12/06/23 04/21/24 Rx dose,BT with controller subcutaneous (Omnipod 5 G6 Intro Kit (Gen 5) subcutaneous cartridge with controller) clopidogrel 75 mg tablet 75 mg PO QAM 03/03/24 05/10/24 History furosemide 40 mg tablet 40 mg PO BID 03/12/24 05/10/24 History fluoxetine 60 mg tablet 60 mg PO QAM #90 tabs 04/02/24 05/10/24 Rx insulin syringe-needle U-100 0.5 #200 ea 04/18/24 04/21/24 Rx mL 30 gauge x 1/2" (BD Insulin Syringe Ultra-Fine) insulin aspart U-100 100 unit/mL 100 unit subcut 04/21/24 05/10/24 History subcutaneous solution (Novolog U-100 Insulin aspart) metolazone 5 mg tablet 5 mg PO DAILY PRN weight gain #1 04/29/24 05/10/24 Rx tab carvedilol 12.5 mg tablet 25 mg PO BID 04/30/24 05/10/24 History losartan 25 mg tablet 50 mg PO QAM 04/30/24 05/10/24 History potassium chloride 20 mEq 20 meq PO UD 04/30/24 05/10/24 History tablet,extended release OneTouch Verio test strips (blood #300 ea 05/05/24 Rx sugar diagnostic) dapagliflozin propanediol 10 mg 10 mg PO QAM 05/10/24 05/10/24 History tablet (Farxiga) fluticasone fur. 200 mcg-umeclid 1 inh inhalation QAM 05/10/24 05/10/24 History 62.5 mcg-vilant 25 mcg inhalat.powder (Trelegy Ellipta) Patient History Medical History Obesity Vitamin D deficiency Statin myopathy Sleep apnea Sensorineural hearing loss (SNHL) of both ears Splenomegaly History of pancreatitis History of kidney injury Cervical radiculopathy right C8 Pulmonary nodules Gout Diverticular disease Glaucoma NO MEDICATIONS. "PRE-GLAUMCOMA" Surgical History Fusion of spine C4-7 ACDF S/P trigger finger release right and left hands H/O elbow surgery LEFT S/P Achilles tendon repair LEFT History of esophagogastroduodenoscopy (EGD) History of colonoscopy History of tonsillectomy History of cardiac cath NO STENTS. FOLLOWS WITH DR. PRYOR. S/P wrist surgery H/O cervical spine surgery Family History Grandmother Family history of diabetes mellitus Uncle Family history of diabetes mellitus Father COPD (chronic obstructive pulmonary disease) Lung disease Mother Hypertension Aunt Colorectal cancer Denies family history of Ovarian cancer Prostate cancer Myocardial infarction Breast cancer Social History Smoking Status: Former smoker Tobacco Type: Cigars Age Started Using Tobacco: 20; Cigarettes Per Day: Rare cigar smoker, ~1x month; Second Hand Exposure: Yes; Do You Dip or Chew Tobacco: No; Tobacco Cessation Education Requested by Patient: No Hx Alcohol Use: No Hx Substance Use: No Preferred Language: Danish Communication Ability: Effective Visual Impairment: No Limitations Hearing Ability: Hard of Hearing Environmental Studies Program Director Required: No Beliefs That Will Affect Care: None marital status: Current Living Situation: Spouse Current Living Situation Comment: home w spouse current occupational status: employed and disabled 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 Other Information That Helps Us Care for You: No Feels Safe at Home: Yes Safety Concerns: Feels Safe At This Time Childhood Exposure to Second-Hand Smoke: Yes Diet: diabetic, low salt and regular caffeine: Yes (very rare) during the past year weight has: remained stable Dental Care, Regularly: No Physical Activity Frequency: Does not Exercise Seatbelt Use: always Sunscreen Use: No Assistive Devices: None Review of Systems Review of Systems: Denies nataliia fevers or chills Denies increased cough sputum production or chest pain GI as mentioned history present illness. Review of systems otherwise as HPI Physical Exam Physical Exam: Patient lying in bed. Recently received Dilaudid. Still notes some right upper quadrant discomfort The eyes reveal mild scleral icterus Neck revealed no adenopathy. Chest and heart exams per admitting H&P reviewed no change Abdomen tender to right upper quadrant. Dwyer sign Exam otherwise negative Results & Data Vital Signs (Past 12 Hours) Vital Signs Temp Pulse Pulse Pulse Resp BP BP 05/11/24 12:02 36.5 C 70 18 110/66 05/11/24 07:55 05/11/24 07:54 36.4 C L 71 18 104/64 05/11/24 07:03 36.5 C 68 18 111/66 05/11/24 06:09 73 108/66 05/11/24 05:43 71 05/11/24 04:18 36.6 C 70 14 95/61 L Pulse Ox O2 Del Method 05/11/24 12:02 96 Room Air 05/11/24 07:55 Room Air 05/11/24 07:54 92 Room Air 05/11/24 07:03 92 Room Air 05/11/24 06:09 05/11/24 05:43 05/11/24 04:18 94 Room Air Laboratory Results Jaundice elevated liver enzymes. Lowish platelets 129. Thrombin time normal PTT elevated at 34. PG Care Time/CCT Total # of Minutes Spent Total Time Spent with Patient: Total time spent is greater than 50% in coordination of care (as documented) at patient's floor/unit and/or counseling patient: Coding Level of Care Code 40229 INT INP/OBS CARE 2/55MIN Diagnoses Obstructive jaundice K83.1 Anticoagulant long-term use Z79.01 Thrombocytopenia D69.6 Ipqca-2-brnyqztlfuy deficiency E88.01
--- NOTE | 2024-05-11 13:49 | Hospitalist Progress Note ---
Date of Service May 11, 2024 Assessment & Plan (1) Calculous cholecystitis with obstruction: (2) STEVEN (acute kidney injury): (3) (HFpEF) heart failure with preserved ejection fraction: (4) CAD (coronary artery disease), yurok coronary artery: Plan This pt is a 69-year-old male with h/o CAD s/p THIERRY, T2DM, HFpEF, CKD stage 4, anxiety/depression, COPD, alpha 1 antitrypsin deficiency, and dyslipidemia who p/w acute onset of severe epigastric pain, N/V. Initially thought to be a viral gastroenteritis but found to have acute cholecystitis with choledocholithiasis. #Acute cholecystitis w/ cholecystitis/Epigastric pain/Nausea/vomiting-p/w acute epigastric pain and N/V. LFTs checked after admission and now with significant TBili 9, DBili 6, AST and ALT, Alk phos in 300s. CT A/P initially neg but RUQ US with acute cholecystitis and cholelithiasis, normal CBD. Taken for urgent ERCP and showed recently passed stone with inflamed ampulla, ducts now open and draining, no intervention performed. EGD otherwise neg. 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 Secondary to acute illness, dehydration from vomiting with acute cholecystitis. Na+ low at 132 from volume depletion -hold losartan, lasix, KCl, metolazone, Jardiance -giving IVFs -follow BMP #CAD/History of heart stent to LAD-no acute issues or chest pain, no ischemic changes on ECG. LAD stent placed in 07/2022 Hold Plavix for lap jacky x 5 days #COPD/Alpha-1 AT def/Hepatosplenomegaly- with known Alph-1 AT def causing likely liver disease and lung disease. EGD neg for signs of portal HTN -follow as outpt -continue maintenance inhalers #HTN-BPs normal to low normal -hold lasix, losartan for STEVEN -continue COreg, isosorbide #[id number] A1c at 5.2% on 04/21/2024, Hold dapagliflozin, Patient is requesting to continue use of his home OmniPod insulin pump BSG ACHS #HFpEF-volume depleted -hold losartan, lasix -follow daily weights, I/Os #Anxiety/depression-no acute issues -continue fluoxetine #Gout-no acute issues -continue allopurinol DVT Proph-SCDs, hold Lovenox for ERCP, but can resume on 05/12. Dispo-continued stay on med/tele Discussed care with on phone on 05/11 Admission and Anticipated Discharge Date Admission Date: May 10, 2024 Subjective Pt with ongoing nausea and epigastric and RUQ abd pain. He had some clear liquids for breakfast but was made NPO after this. RUQ US showed acute jacky and LFTs were significantly elevated. I discussed his care with GI and Surgery. ERCP performed. I discussed his care with his on the phone as well. Tele with NSR rates 60-70s Physical Exam Constitutional: WD/WN, vitals as above + obese Eyes: + scleral abnormality (icterus) Respiratory: normal respiratory effort, lungs clear to auscultation Cardiovascular: RRR, no murmur, no edema Gastrointestinal (Abdomen): Inspection/Auscultation: abdomen normal to inspection and normal bowel sounds; abdomen not distended Percussion/Palpation: + abdomen tender (exquisitely in RUQ w/ +Dwyer's sign,no guarding or rebound) and abdomen soft Neurologic: PERRL, EOMI, accommodation nl, no face palsy, no dysarthria Psychiatric: A+Ox3, euthymic affect Results & Data Results & Data Vital Signs (Past 12 Hours) Vital Signs Temp Pulse Pulse Pulse Resp BP BP 05/11/24 12:02 36.5 C 70 18 110/66 05/11/24 07:55 05/11/24 07:54 36.4 C L 71 18 104/64 05/11/24 07:03 36.5 C 68 18 111/66 05/11/24 06:09 73 108/66 05/11/24 05:43 71 05/11/24 04:18 36.6 C 70 14 95/61 L Pulse Ox O2 Del Method 05/11/24 12:02 96 Room Air 05/11/24 07:55 Room Air 05/11/24 07:54 92 Room Air 05/11/24 07:03 92 Room Air 05/11/24 06:09 05/11/24 05:43 05/11/24 04:18 94 Room Air Laboratory Results CBC, CMP, lipase, magnesium and repeat CMP reviewed Diagnostic Findings RUQ US reviewed PG Care Time/CCT Total # of Minutes Spent Total Time Spent with Patient: Total time spent is greater than 50% in coordination of care (as documented) at patient's floor/unit and/or counseling patient: Coding Level of Care Code 01023 SUB INP/OBS CARE MIN Diagnoses Calculous cholecystitis with obstruction K80.01 STEVEN (acute kidney injury) N17.9 (HFpEF) heart failure with preserved ejection fraction I50.33 Heart failure chronicity: acute on chronic CAD (coronary artery disease), yurok coronary artery I25.10 (3) (HFpEF) heart failure with preserved ejection fraction Heart failure chronicity: acute on chronic Qualified Code(s): I50.33 - Acute on chronic diastolic (congestive) heart failure
[2024-05-11] MEDS: PIPERACILLIN/TAZOBACTAM 4.5 GM/100 ML BAG IV ONE (14:07)
[2024-05-11 15:27] LABS: Albumin Globulin Ratio 1.3 (0.9-2); Albumin Level 3.8 gm/dl (3.4-5.0); BUN Creatinine Ratio 17.3 (10-20); Bilirubin,Total 9.4 mg/dl (0.2-1.0); Calcium 8.9 mg/dl (8.6-10.3); Creatinine Clr Calc Pharmacy 22.8 ml/min; Potassium 4.6 mmol/L (3.5-5.1); Total Protein 6.8 gm/dl (6.0-8.3)
--- NOTE | 2024-05-11 15:43 | Surgery Consultation ---
Date of Consultation May 11, 2024 Assessment & Plan (1) Obstructive jaundice: (2) Abdominal pain: Plan 69-year-old gentleman presents with acute cholecystitis and a bilirubin of 9, suggestive of a common bile duct stone. He has been seen by gastroenterology and will be undergoing ERCP later this afternoon. Evex, with his last dose 2 days ago. We will await the results of the ERCP and monitor his labs. continue IV antibiotics. We will continue to follow while he is here. He will need to be off the Plavix for at least 5 days prior to any surgical intervention. History of Present Illness Reason for Consultation: choledocholithiasis and cholecystitis Requesting Physician: Wilma Loving MD Attending Physician: Wilma Loving MD History of Present Illness Magdiel is a 69-year-old male with PMH of T2DM, HFpEF, CKD, anxiety, depression, COPD, alpha 1 antitrypsin deficiency, and dyslipidemia. He presented via EMS on 05/10 for epigastric pain that began around 0200. Patient reports that the pain woke him from sleep, and initially he was feeling very bloated, so he got up and took Gas-X. This did not help his symptoms, and it gradually worsened throughout the night. He developed nausea and dry heaves overnight. he had chills. In the ER he was noted to have evidence of cholecystitis with a total bilirubin of 9.1 and a direct bili of 5. He is on Plavix. Allergies Allergy/AdvReac Type Severity Reaction Status Date / Time ketorolac [From Toradol] Allergy Severe kidney Verified 04/07/24 13:24 failure NSAIDS (Non-Steroidal Allergy Unknown Unknown Verified 04/07/24 13:24 Anti-Inflamma Mninnke-DPG-RtB Reductase AdvReac Intermediate Muscle pain Verified 04/07/24 13:24 Inhibitor [Ayjfsku-Tlg-Qwj Reductase Inhibitor] Home Medications Medication Instructions Recorded Confirmed Type allopurinol 100 mg tablet 200 mg (2 x 100 mg) PO BID #360 06/23/20 05/10/24 Rx tabs lancets 30 gauge #300 ea 05/29/23 04/21/24 Rx isosorbide mononitrate 120 mg 240 mg (2 x 120 mg) PO QAM #200 10/09/23 05/10/24 Rx tablet,extended release 24 hr tabs blood-glucose meter,continuous #1 ea 11/08/23 04/21/24 Rx (Dexcom G7 Yeast Pumper) blood-glucose sensor (Dexcom G7 #3 ea 11/08/23 04/21/24 Rx Sensor device) insulin pump cart,automated,BT #10 ea 12/03/23 04/21/24 Rx (Omnipod 5 G6 Pods (Gen 5) subcutaneous cartridge) insulin pump cartridge,automated #1 ea 12/06/23 04/21/24 Rx dose,BT with controller subcutaneous (Omnipod 5 G6 Intro Kit (Gen 5) subcutaneous cartridge with controller) clopidogrel 75 mg tablet 75 mg PO QAM 03/03/24 05/10/24 History furosemide 40 mg tablet 40 mg PO BID 03/12/24 05/10/24 History fluoxetine 60 mg tablet 60 mg PO QAM #90 tabs 04/02/24 05/10/24 Rx insulin syringe-needle U-100 0.5 #200 ea 04/18/24 04/21/24 Rx mL 30 gauge x 1/2" (BD Insulin Syringe Ultra-Fine) insulin aspart U-100 100 unit/mL 100 unit subcut 04/21/24 05/10/24 History subcutaneous solution (Novolog U-100 Insulin aspart) metolazone 5 mg tablet 5 mg PO DAILY PRN weight gain #1 04/29/24 05/10/24 Rx tab carvedilol 12.5 mg tablet 25 mg PO BID 04/30/24 05/10/24 History losartan 25 mg tablet 50 mg PO QAM 04/30/24 05/10/24 History potassium chloride 20 mEq 20 meq PO UD 04/30/24 05/10/24 History tablet,extended release OneTouch Verio test strips (blood #300 ea 05/05/24 Rx sugar diagnostic) dapagliflozin propanediol 10 mg 10 mg PO QAM 05/10/24 05/10/24 History tablet (Farxiga) fluticasone fur. 200 mcg-umeclid 1 inh inhalation QAM 05/10/24 05/10/24 History 62.5 mcg-vilant 25 mcg inhalat.powder (Trelegy Ellipta) Patient History Medical History Obesity Vitamin D deficiency Statin myopathy Sleep apnea Sensorineural hearing loss (SNHL) of both ears Splenomegaly History of pancreatitis History of kidney injury Cervical radiculopathy right C8 Pulmonary nodules Gout Diverticular disease Glaucoma NO MEDICATIONS. "PRE-GLAUMCOMA" Surgical History Fusion of spine C4-7 ACDF S/P trigger finger release right and left hands H/O elbow surgery LEFT S/P Achilles tendon repair LEFT History of esophagogastroduodenoscopy (EGD) History of colonoscopy History of tonsillectomy History of cardiac cath NO STENTS. FOLLOWS WITH DR. PRYOR. S/P wrist surgery H/O cervical spine surgery Family History Grandmother Family history of diabetes mellitus Uncle Family history of diabetes mellitus Father COPD (chronic obstructive pulmonary disease) Lung disease Mother Hypertension Aunt Colorectal cancer Denies family history of Ovarian cancer Prostate cancer Myocardial infarction Breast cancer Social History Smoking Status: Former smoker Tobacco Type: Cigars Age Started Using Tobacco: 20; Cigarettes Per Day: Rare cigar smoker, ~1x month; Second Hand Exposure: Yes; Do You Dip or Chew Tobacco: No; Tobacco Cessation Education Requested by Patient: No Hx Alcohol Use: No Hx Substance Use: No Preferred Language: Kosovan Communication Ability: Effective Visual Impairment: No Limitations Hearing Ability: Hard of Hearing Holistic Nutritionist Required: No Beliefs That Will Affect Care: None marital status: Current Living Situation: Spouse Current Living Situation Comment: home w spouse current occupational status: employed and disabled 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 [employer] Other Information That Helps Us Care for You: No Feels Safe at Home: Yes Safety Concerns: Feels Safe At This Time Childhood Exposure to Second-Hand Smoke: Yes Diet: diabetic, low salt and regular caffeine: Yes (very rare) during the past year weight has: remained stable Dental Care, Regularly: No Physical Activity Frequency: Does not Exercise Seatbelt Use: always Sunscreen Use: No Assistive Devices: None Review of Systems Review of Systems: All systems reviewed & are unremarkable except as noted in HPI & below Physical Exam Constitutional: WD/WN, vitals as above Eyes: PERRL, conjunctivae normal, anicteric sclerae Neck: trachea midline, no thyromegaly Respiratory: normal respiratory effort; no respiratory distress and no labored breathing Cardiovascular: Rate/Rhythm: regular rate and regular rhythm Gastrointestinal (Abdomen): Inspection/Auscultation: abdomen normal to inspection; abdomen not distended Percussion/Palpation: + abdomen tender ( RUQ) and abdomen soft; no guarding and abdomen not rigid Skin: no rashes, warm and dry Psychiatric: A+Ox3, euthymic affect Results & Data Vital Signs (Past 12 Hours) Vital Signs Temp Pulse Pulse Pulse Resp BP BP 05/11/24 12:59 69 05/11/24 12:02 36.5 C 70 18 110/66 05/11/24 07:55 05/11/24 07:54 36.4 C L 71 18 104/64 05/11/24 07:03 36.5 C 68 18 111/66 05/11/24 06:09 73 108/66 05/11/24 05:43 71 05/11/24 04:18 36.6 C 70 14 95/61 L Pulse Ox O2 Del Method 05/11/24 12:59 05/11/24 12:02 96 Room Air 05/11/24 07:55 Room Air 05/11/24 07:54 92 Room Air 05/11/24 07:03 92 Room Air 05/11/24 06:09 05/11/24 05:43 05/11/24 04:18 94 Room Air Laboratory Results 05/11/24 05/11/24 05/11/24 Range/Units 14:25 12:18 08:06 WBC (4.8-10.8) K/ul RBC (4.70-6.10) M/uL Hgb (14.0-18.0) g/dl Hct (42.0-52.0) % MCV (80.0-100.0) fL MCH (25.0-34.0) pg MCHC (32.0-36.0) g/dL RDW Std Deviation (36.4-46.3) fL RDW Coeff of Junito (11.5-14.5) % Plt Count (130-400) K/uL MPV (9.4-12.4) fL Immature Gran % (Auto) % Neut % (Auto) % Lymph % (Auto) % Marion % (Auto) % Eos % (Auto) % Baso % (Auto) % Neut # (Auto) (1.40-6.50) K/uL Lymph # (Auto) (1.20-3.40) K/uL Marion # (Auto) (0.11-0.59) K/uL Eos # (Auto) (0.00-0.50) K/uL Baso # (Auto) (0.00-0.20) K/uL Immature Gran # (Auto) (0.01-0.20) K/uL Sodium 129 L (136-145) mmol/L Potassium 4.6 (3.5-5.1) mmol/L Chloride 96 L (98-107) mmol/L Carbon Dioxide 23 (21-32) mmol/L Anion Gap 10 (3-11) BUN 58 H (6-23) mg/dl Creatinine 3.36 H (0.6-1.4) mg/dl Est Cr Clr Drug Dosing 22.8 ml/min eGFR 19.27 BUN/Creatinine Ratio 17.3 (10-20) Glucose 140 H (70-99(Fasting)) mg/dl POC Glucose 130 H 142 H (70-99) mg/dl Calcium 8.9 (8.6-10.3) mg/dl Magnesium (1.7-2.4) mg/dl Total Bilirubin 9.4 H (0.2-1.0) mg/dl Direct Bilirubin (0-0.2) mg/dl AST 259 H (13-39) U/L ALT 277 H (7-52) U/L Alkaline Phosphatase 216 H (34-104) U/L Total Protein 6.8 (6.0-8.3) gm/dl Albumin 3.8 (3.4-5.0) gm/dl Globulin 3.0 (2.5-4.0) gm/dl Albumin/Globulin Ratio 1.3 (0.9-2) Lipase 5 L (11-82) U/L 05/11/24 05/10/24 05/10/24 Range/Units 06:45 21:25 17:08 WBC 9.40 (4.8-10.8) K/ul RBC 4.98 (4.70-6.10) M/uL Hgb 14.1 (14.0-18.0) g/dl Hct 41.1 L (42.0-52.0) % MCV 82.5 (80.0-100.0) fL MCH 28.3 (25.0-34.0) pg MCHC 34.3 (32.0-36.0) g/dL RDW Std Deviation 44.4 (36.4-46.3) fL RDW Coeff of Junito 15.0 H (11.5-14.5) % Plt Count 128 L (130-400) K/uL MPV 9.7 (9.4-12.4) fL Immature Gran % (Auto) 1.0 % Neut % (Auto) 81.7 % Lymph % (Auto) 4.9 % Marion % (Auto) 12.2 % Eos % (Auto) 0.1 % Baso % (Auto) 0.1 % Neut # (Auto) 7.68 H (1.40-6.50) K/uL Lymph # (Auto) 0.46 L (1.20-3.40) K/uL Marion # (Auto) 1.15 H (0.11-0.59) K/uL Eos # (Auto) 0.01 (0.00-0.50) K/uL Baso # (Auto) 0.01 (0.00-0.20) K/uL Immature Gran # (Auto) 0.09 (0.01-0.20) K/uL Sodium 132 L (136-145) mmol/L Potassium 4.5 D (3.5-5.1) mmol/L Chloride 98 (98-107) mmol/L Carbon Dioxide 25 (21-32) mmol/L Anion Gap 9 (3-11) BUN 52 H (6-23) mg/dl Creatinine 3.10 H D (0.6-1.4) mg/dl Est Cr Clr Drug Dosing 24.7 ml/min eGFR 21.22 BUN/Creatinine Ratio 16.8 (10-20) Glucose 128 H (70-99(Fasting)) mg/dl POC Glucose 176 H 188 H (70-99) mg/dl Calcium 9.1 (8.6-10.3) mg/dl Magnesium 2.0 (1.7-2.4) mg/dl Total Bilirubin 9.1 H D (0.2-1.0) mg/dl Direct Bilirubin 6.2 H (0-0.2) mg/dl AST 388 H (13-39) U/L ALT 344 H (7-52) U/L Alkaline Phosphatase 208 H D (34-104) U/L Total Protein 6.8 (6.0-8.3) gm/dl Albumin 4.0 (3.4-5.0) gm/dl Globulin (2.5-4.0) gm/dl Albumin/Globulin Ratio (0.9-2) Lipase 12 (11-82) U/L Diagnostic Findings US gallbladder CLINICAL HISTORY: Epigastric pain. COMPARISON STUDY: Right upper quadrant ultrasound June 15, 2017. CT of the abdomen and pelvis May 10, 2024 FINDINGS: No hepatic lesions are identified. There is no biliary ductal dilatation. The common bile duct measures 5 mm in caliber. There are stones and sludge within the gallbladder. Sonographic Dwyer sign was reported by the technologist. The gallbladder is mildly distended. There is mild gallbladder wall thickening. Pancreas is unremarkable by sonography although the head and tail are slightly obscured. There is no right hydronephrosis. IMPRESSION: 1. Cholelithiasis with positive sonographic Dwyer sign. Mild gallbladder distention and mild gallbladder wall thickening. These findings may represent acute cholecystitis. Nuclear medicine hepatobiliary scan could be obtained for further evaluation. 2. No biliary ductal dilatation. ACT 112: Negative or not required by law. Electronically signed by: Mathew Castanon M.D. 05/11/2024 12:30 PM (2) Abdominal pain Abdominal location: right upper quadrant Qualified Code(s): R10.11 - Right upper quadrant pain
[2024-05-11] MEDS ORDERED: PROPOFOL IV EMULSION 10 MG/ML 20 ML VIAL IV ONE (16:32)
[2024-05-11] MEDS ORDERED: SUCCINYLCHOLINE CHLORIDE 20 MG/ML 10 ML VIAL IV ONE (16:32)
--- NOTE | 2024-05-11 17:00 | Anesthesiology Consultation ---
Date of Service May 11, 2024 Assessment & Plan Chart Review Chart Review: Acceptable Risk for Surgery and Patient NOT seen in Pre Admission Testing Consults Requested none ASA ASA4 Proposed Anesthesia Anesthesia Type: General History Surgery Operation Date: 05/11/24 17:00 Proposed Procedures p Endoscopic Retrograde Cholangiopancreatograpthy - Quang Lane MD Height/Weight Height: 5 ft 4 in Weight: 100 kg Allergies Allergy/AdvReac Type Severity Reaction Status Date / Time ketorolac [From Toradol] Allergy Severe kidney Verified 04/07/24 13:24 failure NSAIDS (Non-Steroidal Allergy Unknown Unknown Verified 04/07/24 13:24 Anti-Inflamma Fqpljhx-EJO-IpX Reductase AdvReac Intermediate Muscle pain Verified 04/07/24 13:24 Inhibitor [Ftxxyww-Jdb-Sbi Reductase Inhibitor] Medications Home Medications Medication Instructions Recorded Confirmed Last Taken allopurinol 100 mg tablet 200 mg (2 x 100 mg) PO BID #360 06/23/20 05/10/24 08/04/23 tabs lancets 30 gauge #300 ea 05/29/23 04/21/24 Unknown isosorbide mononitrate 120 mg 240 mg (2 x 120 mg) PO QAM #200 10/09/23 05/10/24 Unknown tablet,extended release 24 hr tabs blood-glucose meter,continuous #1 ea 11/08/23 04/21/24 Unknown (Dexcom G7 Metal Sander) blood-glucose sensor (Dexcom G7 #3 ea 11/08/23 04/21/24 Unknown Sensor device) insulin pump cart,automated,BT #10 ea 12/03/23 04/21/24 Unknown (Omnipod 5 G6 Pods (Gen 5) subcutaneous cartridge) insulin pump cartridge,automated #1 ea 12/06/23 04/21/24 Unknown dose,BT with controller subcutaneous (Omnipod 5 G6 Intro Kit (Gen 5) subcutaneous cartridge with controller) clopidogrel 75 mg tablet 75 mg PO QAM 03/03/24 05/10/24 Unknown furosemide 40 mg tablet 40 mg PO BID 03/12/24 05/10/24 Unknown fluoxetine 60 mg tablet 60 mg PO QAM #90 tabs 04/02/24 05/10/24 Unknown insulin syringe-needle U-100 0.5 #200 ea 04/18/24 04/21/24 Unknown mL 30 gauge x 1/2" (BD Insulin Syringe Ultra-Fine) insulin aspart U-100 100 unit/mL 100 unit subcut UD 04/21/24 05/10/24 Unknown subcutaneous solution (Novolog U-100 Insulin aspart) metolazone 5 mg tablet 5 mg PO DAILY PRN weight gain #1 04/29/24 05/10/24 Unknown tab carvedilol 12.5 mg tablet 25 mg PO BID 04/30/24 05/10/24 Unknown losartan 25 mg tablet 50 mg PO QAM 04/30/24 05/10/24 Unknown potassium chloride 20 mEq 20 meq PO UD 04/30/24 05/10/24 Unknown tablet,extended release OneTouch Verio test strips (blood #300 ea 05/05/24 Unknown sugar diagnostic) dapagliflozin propanediol 10 mg 10 mg PO QAM 05/10/24 05/10/24 Unknown tablet (Farxiga) fluticasone fur. 200 mcg-umeclid 1 inh inhalation QAM 05/10/24 05/10/24 Unknown 62.5 mcg-vilant 25 mcg inhalat.powder (Trelegy Ellipta) Active Medications Generic Name Dose Route Start Last Admin Trade Name Freq PRN Reason Stop Dose Admin Acetaminophen 650 mg 05/10/24 14:13 05/10/24 18:25 Acetaminophen 325 Mg Tab PO 06/09/24 14:12 650 mg Q4H PRN Administration Pain or Fever Allopurinol 200 mg 05/10/24 21:00 05/11/24 08:48 Allopurinol 100 Mg Tab PO 06/09/24 20:59 200 mg BID ANGEL Administration Carvedilol 25 mg 05/10/24 17:00 05/11/24 15:54 Carvedilol 25 Mg Tab PO 06/09/24 16:59 Not Given BIDM ANGEL Clopidogrel Bisulfate 75 mg 05/11/24 09:00 05/11/24 08:49 Clopidogrel Bisulfate 75 Mg Tab PO 06/10/24 08:59 75 mg QAM ANGEL Administration Fluoxetine HCl 60 mg 05/10/24 14:30 05/11/24 08:49 Fluoxetine Hcl 20 Mg Cap PO 06/09/24 14:29 60 mg QAM ANGEL Administration Fluticasone Furoate 1 puffs 05/11/24 09:00 05/11/24 08:47 Fluticasone Furoate 200mcg 14 Puffs/Inhaler INH 06/10/24 08:59 1 puffs DAILY ANGEL Administration Furosemide 40 mg 05/10/24 14:30 05/11/24 11:00 Furosemide 40 Mg Tab PO 06/09/24 14:29 Not Given BID17 ANGEL Hydromorphone HCl 0.5 mg 05/11/24 10:19 05/11/24 11:06 Hydromorphone Inj 0.5 Mg/0.5 Ml Syr IV 05/25/24 10:18 0.5 mg Q6H PRN Administration Pain Famotidine 20 mg in 5 mls @ 2.5 mls/min 05/11/24 09:00 05/11/24 08:51 Pepcid 20mg Iv Push IV 06/10/24 08:59 2.5 mls/min QAM ANGEL Administration Lactated Ringer's 1,000 mls @ 80 mls/hr 05/11/24 10:15 05/11/24 10:37 Lr IV 05/12/24 23:44 80 mls/hr .[id number] ANGEL Administration Isosorbide Mononitrate 240 mg 05/10/24 09:45 05/11/24 08:49 Isosorbide [place] Extended Rel 60 Mg Tabcr PO 06/09/24 09:44 240 mg QAM ANGEL Administration Losartan Potassium 50 mg 05/11/24 09:00 05/11/24 11:00 Losartan Potassium 50 Mg Tab PO 06/10/24 08:59 Not Given QAM ANGEL Ondansetron HCl 4 mg 05/10/24 09:37 05/10/24 17:39 Ondansetron Inj 2 Mg/Ml 2 Ml Vial IV 06/09/24 09:36 4 mg Q4H PRN Administration Nausea Potassium Chloride 20 meq 05/10/24 14:13 05/11/24 11:00 Potassium Chloride Crtab 20 Meq Tabcr PO 06/09/24 14:12 Not Given BID ANGEL Umeclidinium/Vilanterol 1 puffs 05/11/24 09:00 05/11/24 08:47 Umeclidinium/Vilanterol 62.5/25mcg 7 Puffs/Inhaler INH 06/10/24 08:59 1 puffs DAILY ANGEL Administration Past Medical History Medical History Obesity Vitamin D deficiency Statin myopathy Sleep apnea Sensorineural hearing loss (SNHL) of both ears Splenomegaly History of pancreatitis History of kidney injury Cervical radiculopathy right C8 Pulmonary nodules Gout Diverticular disease Glaucoma NO MEDICATIONS. "PRE-GLAUMCOMA" CAD s/p PTCA/stent to mid LAD HTN HLD Morbid obesity COPD/emphysema C spine radiculopathy CKD splenomegaly hepatomegaly pancreatitis Thrombocytopenia CHF severe LVH NIDDM Anxiety/Depression RBBB Exercise / Class Metabolic Activity III < 4 Walking/Shop/Light housework Past Family History Family History Grandmother Family history of diabetes mellitus Uncle Family history of diabetes mellitus Father COPD (chronic obstructive pulmonary disease) Lung disease Mother Hypertension Aunt Colorectal cancer Denies family history of Ovarian cancer Prostate cancer Myocardial infarction Breast cancer Past Surgical History Surgical History Fusion of spine C4-7 ACDF S/P trigger finger release right and left hands H/O elbow surgery LEFT S/P Achilles tendon repair LEFT History of esophagogastroduodenoscopy (EGD) History of colonoscopy History of tonsillectomy History of cardiac cath NO STENTS. FOLLOWS WITH DR. PRYOR. S/P wrist surgery H/O cervical spine surgery Past Anesthesia History No Hx of Anesthesia Complications and No Family Hx of Anesthesia Complications History of PONV No Hx of PONV and No Hx of Motion Sickness Social History Smoking Status: Former smoker tobacco type: cigars Smoking cigarettes per day: Rare cigar smoker, ~1x month Do You Dip or Chew Tobacco: No Hx Alcohol Use: No Alcohol type: wine alcohol intake frequency: holidays/special occasions only Hx Substance Use: No substance use type: does not use Physical Exam Vital Signs Last Vital Signs Temp 38.4 C H 05/11/24 16:18 Pulse 60 05/11/24 16:18 Resp 20 05/11/24 16:18 BP 105/62 05/11/24 16:18 Pulse Ox 98 05/11/24 16:18 O2 Del Method Room Air 05/11/24 16:18 Testing Laboratory Results 05/11/24 06:45 05/11/24 14:25 PT 10.9 Seconds (9.0-12.0) 05/10/24 07:03 INR 1.0 (0.9-1.1) 05/10/24 07:03 APTT 34 Seconds (21-31) H 05/10/24 07:03 Urine Color Yellow 05/10/24 11:00 Urine Appearance Clear (Clear) 05/10/24 11:00 Urine pH 5.0 (4.5-7.5) 05/10/24 11:00 Ur Specific [place] 1.019 (1.000-1.030) 05/10/24 11:00 Urine Protein 2+ (Negative) H 05/10/24 11:00 Urine Glucose (UA) 3+ (Negative) H 05/10/24 11:00 Urine Ketones Negative (Negative) 05/10/24 11:00 Urine Nitrite Negative (Negative) 05/10/24 11:00 Ur Leukocyte Esterase Negative (Negative) 05/10/24 11:00 Urine WBC (Auto) 0-5 /hpf (0-5) 05/10/24 11:00 Urine RBC (Auto) 0-2 /hpf (0-2) 05/10/24 11:00 U Hyaline Cast (Auto) 0-2 /lpf (0-2) 05/10/24 11:00 U Epithel Cells (Auto) 0-2 /hpf (0-2) 05/10/24 11:00 Urine Bacteria (Auto) None Seen (None Seen) 05/10/24 11:00 05/11/24 05/11/24 12:18 08:06 POC Glucose 130 H 142 H Electrocardiogram Date: 05/10/24 Findings: + NSR @ (@ 69 w/ SA;) and + RBBB Chest X-Ray Date: 04/18/24 Findings: + NAD Echocardiogram Date: 05/25/19 EF: 60% LV Function: normal RWMA: + none Other Findings: + LVH (severe) and + diastolic dysfunction (Grade 1) Cardiac Catheterization Date: 10/09/22 Findings: + RCA (LI's), + LMA (none) and + LCX (LI's) Location: LAD 30-40% early-mid prior to widely patent stent;D1 50-60% ostial- prox
[2024-05-11] MEDS ORDERED: NALOXONE HCL 0.4 MG/1 ML VIAL/CARP IV PRN (17:59)
[2024-05-11] MEDS ORDERED: FLUMAZENIL 0.1 MG/1 ML 10 ML VIAL IV PRN (17:59)
[2024-05-11] MEDS ORDERED: ONDANSETRON INJ 2 MG/ML 2 ML VIAL IV PRN (17:59)
[2024-05-11] MEDS ORDERED: fentaNYL citrate PF 100 MCG/2 ML VIAL IV PRN (17:59)
[2024-05-11] MEDS ORDERED: ATROPINE SULFATE 0.1 MG/ML 10ML SYR IV PRN (17:59)
[2024-05-11] MEDS ORDERED: LABETALOL HCL IV 5 MG/ML 20ML IV PRN (17:59)
[2024-05-11] MEDS ORDERED: PROMETHAZINE HCL 6.25 MG in SODIUM CHLORIDE 0.9% 50 ML IV PRN (17:59)
[2024-05-11] MEDS ORDERED: ePHEDrine sulfate 50 MG/ML AMP IV PRN (17:59)
--- NOTE | 2024-05-11 18:12 | Communication Note ---
Date of Service: May 11, 2024 Preop note Repeat liver test somewhat worsened. Consistent with persistent biliary obstruction. Lipase is normal, did review with the patient plan will be for stent placement rather than sphincterotomy if stone identified. With his low platelets potential portal hypertension and Plavix use I think sphincterotomy bleeding risk is significant. His stent can be placed for bili decompression with subsequent ERCP and stone removal once off Plavix for 5 or 6 days Also reviewed with patient 1 in 20 chance of pancreatitis. Patient also has a duodenal diverticulum based on CT. This may complicate cannulation and stent placement if the papillary orifice is within the diverticulum itself. Patient has received Zosyn. Made a decision not to give him an NSAID related to significant kidney dysfunction and NSAIDs listed as an allergy
[2024-05-11] MEDS ORDERED: PHENYLEPHRINE 100MCG/ML 5ML SYR ONE ×2 (18:27→18:36)
--- NOTE | 2024-05-11 18:53 | Communication Note ---
Date of Service: May 11, 2024 EGD Done preoperatively with a history of alpha-1 antitrypsin hepatosplenomegaly and low platelets rule out portal hypertension. No varices, no significant portal gastropathy ERCP Ampulla had 2 separate orifices 1 draining clear pancreatic juice the other draining bile. Variant of normal the ampulla was slightly beat up consistent with a passed stone. Deep cannulation of the common bile duct achieved. Duct nondilated and clear no filling defects. The duct drain immediately withdrawing the catheter consistent with patency. No sphincterotomy no stent required Patient tolerated procedure well. Pancreatic duct was not injected on purpose
--- NOTE | 2024-05-11 18:56 | GI REPORT ---
[facility] Patient: PRAMOD DELCID : 1955 Sex at : Male Age: 69 Years Procedure: Upper GI endoscopy Date: 05/11/2024 Attending Physician: Quang Lane MD Referring MD: Referred Self Indications: - Portal hypertension, thrombocytopenia, evaluate for varices Medications: - General Anesthesia Complications: - No immediate complications. Estimated Blood Loss: - Estimated blood loss: None. Procedure: - The egd scope was introduced through the mouth and advanced to the second part of the duodenum. - The upper GI endoscopy was accomplished without difficulty. - The patient tolerated the procedure well. Findings: - The examined esophagus was normal. - A medium amount of food (residue) was found in the gastric fundus and in the gastric antrum. - The examined duodenum was normal. Impression: - Normal esophagus. - A medium amount of food (residue) in the stomach. - Normal examined duodenum. - No specimens collected. - No signs of portal gastropathy. No varices. Recommendation: Procedure Code(s): - 84134, Esophagogastroduodenoscopy, flexible, transoral; diagnostic, including collection of specimen(s) by brushing or washing, when performed (separate procedure) CPT(R) - 2023 copyright [employer]. All Rights Reserved. The CPT codes, CCI edits and ICD codes generated are intended as suggestions and were generated based on input data. These codes are preliminary and upon coder operator review may be revised to meet current compliance and payer requirements. The provider is responsible for the final determination of appropriate codes, and modifiers. Quang Lane MD This document has been electronically signed. Note Initiated:05/11/2024 Note Completed:05/11/2024 6:55 PM \\[email or web address]\[email or web address]\Results\[email or web address]\[id number].[email or web address]
--- NOTE | 2024-05-11 19:01 | GI REPORT ---
[facility] Patient: PRAMOD DELCID : 1955 Sex at : Male Age: 69 Years Procedure: ERCP Date: 05/11/2024 Attending Physician: Quang Lane MD Referring MD: Referred Self Indications: - Abnormal liver function test - Suspected common duct stone Medications: - General Anesthesia Complications: - No immediate complications. Estimated Blood Loss: - Estimated blood loss: None. Procedure: - The ercp scope was introduced through the mouth and advanced to the duodenum and used to inject contrast into the bile duct. - The ERCP was accomplished without difficulty. - The patient tolerated the procedure well. Findings: - The coach wirer film was normal. - The ampullary orifice had 2 apparent openings. 1 draining clear pancreas choose the other draining bile. There was slight erythema and surface heme around the bile duct opening suggestive of potential stone passage. The bile duct was deeply cannulated with the sphincterotome and guidewire. Contrast was injected. The bile duct was nondilated. No filling defects were noted. Brisk draining with removal of the sphincterotome . Appropriate x-rays taken, the procedure completed. Pancreatic duct not injected on purpose Impression: - Passed common duct stone. Duct without filling defects and draining well Recommendation: - Cholecystectomy, per surgery Procedure Code(s): - 79730, Endoscopic retrograde cholangiopancreatography (ERCP); diagnostic, including collection of specimen(s) by brushing or washing, when performed (separate procedure) Diagnosis Code(s): - R79.89, Other specified abnormal findings of blood chemistry CPT(R) - 2023 copyright [employer]. All Rights Reserved. The CPT codes, CCI edits and ICD codes generated are intended as suggestions and were generated based on input data. These codes are preliminary and upon skein yarn drier review may be revised to meet current compliance and payer requirements. The provider is responsible for the final determination of appropriate codes, and modifiers. Quang Lane MD This document has been electronically signed. Note Initiated:05/11/2024 Note Completed:05/11/2024 7:00 PM \\[email or web address]\Results\[email or web address]\[id number].[email or web address]
--- NOTE | 2024-05-11 19:20 | Anesthesiology Progress Note ---
Date of Service May 11, 2024 Anesthesia Post Procedure Vital Signs Vital Signs: Temp Pulse Pulse Pulse Resp BP BP 05/11/24 19:15 69 21 106/66 05/11/24 19:05 69 23 123/46 L 05/11/24 18:55 36.7 C 72 20 108/55 L 05/11/24 16:18 38.4 C H 60 20 105/62 05/11/24 12:59 69 05/11/24 12:02 36.5 C 70 18 110/66 05/11/24 07:55 05/11/24 07:54 36.4 C L 71 18 104/64 05/11/24 07:03 36.5 C 68 18 111/66 05/11/24 06:09 73 108/66 05/11/24 05:43 71 05/11/24 04:18 36.6 C 70 14 95/61 L 05/11/24 00:05 36.9 C 76 14 99/58 L 05/10/24 21:44 75 05/10/24 19:40 36.9 C 82 14 108/65 Pulse Ox O2 Del Method O2 Flow Rate 05/11/24 19:15 95 Oxymask 2 05/11/24 19:05 95 Oxymask 5 05/11/24 18:55 94 Oxymask 5 05/11/24 16:18 98 Room Air 05/11/24 12:59 05/11/24 12:02 96 Room Air 05/11/24 07:55 Room Air 05/11/24 07:54 92 Room Air 05/11/24 07:03 92 Room Air 05/11/24 06:09 05/11/24 05:43 05/11/24 04:18 94 Room Air 05/11/24 00:05 96 Room Air 05/10/24 21:44 05/10/24 19:40 96 Room Air Pain Intensity Upper Abdomen: Pain Intensity: 0 Right Upper Abdomen: Pain Intensity: 4 Transfer of Care Handoff Completed per policy Notes Mental Status: alert / awake / arousable Patient Amnestic to Procedure: Yes Nausea / Vomiting: adequately controlled Pain: adequately controlled Airway Patency, RR, SpO2: stable & adequate BP & HR: stable & adequate Hydration State: stable & adequate Anesthetic Complications: no major complications apparent
[2024-05-11] MEDS ORDERED: Nursing to Pharmacy Communication SCH (20:45)
[2024-05-11] MEDS: PROCHLORPERAZINE 5 MG in SYRINGE 4 ML IV ONE (21:29)
[2024-05-11] MEDS: PIPERACILLIN/TAZOBACTAM 4.5 GM/100 ML BAG IV SCH (22:25)
[2024-05-12 07:16] LABS: Basophils # (auto) 0.01 K/uL (0.00-0.20); Basophils % (auto) 0.1 %; Eosinophils # (auto) 0.01 K/uL (0.00-0.50); Eosinophils % (auto) 0.1 %; Hematocrit (blood only) 40.6 % (42.0-52.0); Hemoglobin 13.8 g/dl (14.0-18.0); Immature Granulocytes # (auto) 0.08 K/uL (0.01-0.20); Immature Granulocytes % (auto) 0.9 %; Lymphocytes # (auto) 0.33 K/uL (1.20-3.40); Lymphocytes % (auto) 3.7 %; Mean Corpuscular Hemoglobin 28.2 pg (25.0-34.0); Mean Corpuscular Volume 82.9 fL (80.0-100.0); Mean Platelet Volume 10.7 fL (9.4-12.4); Monocytes # (auto) 0.97 K/uL (0.11-0.59); Monocytes % (auto) 10.8 %; Neutrophils # (auto) 7.56 K/uL (1.40-6.50); Neutrophils % (auto) 84.4 %; Platelet Count 115 K/uL (130-400); RDW Coefficient of Variation 14.9 % (11.5-14.5); RDW Standard Deviation 45.4 fL (36.4-46.3); White Blood Count 8.96 K/ul (4.8-10.8)
[2024-05-12 07:23] LABS: Albumin Globulin Ratio 1.1 (0.9-2); Albumin Level 3.5 gm/dl (3.4-5.0); Bilirubin,Total 6.2 mg/dl (0.2-1.0); Calcium 8.9 mg/dl (8.6-10.3); Creatinine Clr Calc Pharmacy 23.7 ml/min; Globulin 3.2 gm/dl (2.5-4.0); Potassium 3.7 mmol/L (3.5-5.1); Total Protein 6.7 gm/dl (6.0-8.3)
--- NOTE | 2024-05-12 08:29 | Fluoroscopy Report ---
[place] ERCP biliary ductal CLINICAL HISTORY: ERCPcholelithiasis COMPARISON STUDY: None FLUOROSCOPY TIME: 27.9 FLUOROSCOPY IMAGES: 3 EXPOSURE DOSE: 7.26 mGy FINDINGS: 3 images demonstrate the distal common bile duct cannulation with contrast material injecte d demonstrating a nondilated common bile duct and intrahepatic ducts. There is no intraluminal fillin g defect identified. There is slight irregularity of the common bile duct which may be inflammatory c hange. IMPRESSION: No evidence of retained stone on the images provided. Refer to the procedure report for a nalysis based upon real time fluoroscopic observation. ACT 112: Negative or not required by law. Electronically signed by: Marybeth Valerio M.D. 05/12/2024 8:26 AM
[2024-05-12] MEDS: HEPARIN SOD 5,000 UNIT/0.5 ML VIAL SQ SCH (09:26)
[2024-05-12] MEDS ORDERED: PHARMACY GLYCEMIC MGMT CONSULT PRN (09:52)
[2024-05-12] MEDS ORDERED: INSULIN ASPART 100 UNITS/ML VIAL SC PRN (10:15)
[2024-05-12] MEDS: SODIUM CHLORIDE 0.9% 1,000 ML IV SCH (11:09)
[2024-05-12] MEDS: INFLUENZA VACC TS2024-25(65y+)/PF (IIV3) 0.5mL Syr IM ONE (11:26)
[2024-05-12] MEDS: PNEUMOCOCCAL VACCINE (PCV20) 20-VAL CONJ-DIP CRM/PF 0.5 ML SYR IM ONE (11:31)
--- NOTE | 2024-05-12 12:43 | Hospitalist Progress Note ---
Date of Service May 12, 2024 Assessment & Plan (1) Calculous cholecystitis with obstruction: Plan: He appeared to have cholelithiasis with choledocholithiasis and apparently passed a stone. Appreciate GI consultation and recommendations. ERCP has been completed. Total bilirubin is trending downward to 6.2. Liver function enzymes are also trending downward. Diet has been advanced to full liquids. (2) STEVEN (acute kidney injury): Plan: On chronic kidney disease stage III. Creatinine remains elevated. Continue IV fluids for now. Monitor intake and output. Serial labs (3) (HFpEF) heart failure with preserved ejection fraction: Plan: No overt evidence of congestive heart failure. Monitor intake and output. (4) CAD (coronary artery disease), [place] coronary artery: Plan: Stable. Continue current medical management (5) [id number] deficiency: Plan: By history. Currently stable. Continue current medical management (6) Type 2 diabetes mellitus: Plan: Currently on full liquid diet. Sliding scale insulin coverage as needed. Plan Hopeful discharge to home within the next day or 2 Admission and Anticipated Discharge Date Admission Date: May 12, 2024 Subjective Alert and oriented. The patient states he feels much better. Liver enzymes are trending down as is the total bilirubin. Creatinine remains elevated however. Continue IV fluids for now. Diet has been advanced to full liquids. Appreciate gastroenterology consultation and recommendations. ERCP results noted. Hopefully he can go home in the next day or 2 if his creatinine improves. Review of Systems 2 Review of Systems: Constitutionalno fever or chills ENTno blurred vision, no double vision, no epistaxis, no sore throat Respiratoryno cough, no wheezing, no shortness of breath Cardiacno palpitations, no chest pain, no syncope Breanne nausea, vomiting, diarrhea, melena, hematochezia. Right upper quadrant discomfort is resolved GUno urinary retention, no urinary incontinence, no dysuria, no hematuria Musculoskeletalno joint pain, no muscle tenderness Skinno bruising, no rashes, no pruritus Neurono isolated weakness, no paresthesia, no weakness Psychno depression, no anxiety Physical Exam 2 Physical Exam: General-alert and oriented x3, no fever, no chills HEENT-head atraumatic and normocephalic, pupils equal and reactive to light, extraocular muscles intact Neck-no lymphadenopathy or thyromegaly, trachea midline Chest-clear to auscultation. No rales, wheezing or rhonchi Cardiac-regular rate and rhythm, normal S1 and S2 Abdomen-normal bowel sounds, no hepatosplenomegaly. Mild right upper quadrant discomfort without rebound or guarding Extremities-no cyanosis, clubbing, or edema Neuro-cranial nerves II through XII intact, motor and sensory function within normal limits, strength symmetrical, no focal deficits Psych-normal affect, normal mood Results & Data Results & Data Vital Signs (Past 12 Hours) Vital Signs Temp Pulse Pulse Resp BP Pulse Ox O2 Del Method 05/12/24 10:50 36.6 C 78 18 155/77 H 92 Room Air 05/12/24 08:30 Room Air 05/12/24 07:30 36.9 C 84 16 131/73 93 Room Air 05/12/24 07:00 82 05/12/24 05:54 36.6 C 84 20 134/72 94 Room Air Laboratory Results 05/12/24 06:17 05/12/24 06:17 PG Care Time/CCT Total # of Minutes Spent Total Time Spent with Patient: Total time spent is greater than 50% in coordination of care (as documented) at patient's floor/unit and/or counseling patient: Coding Level of Care Code 62691 SUB INP/OBS CARE MIN Diagnoses Calculous cholecystitis with obstruction K80.01 STEVEN (acute kidney injury) N17.9 (HFpEF) heart failure with preserved ejection fraction I50.33 Heart failure chronicity: acute on chronic CAD (coronary artery disease), [place] coronary artery I25.10 Lqrps-5-kxcmwvbqfit deficiency E88.01 Type 2 diabetes mellitus E11.9 (3) (HFpEF) heart failure with preserved ejection fraction Heart failure chronicity: acute on chronic Qualified Code(s): I50.33 - Acute on chronic diastolic (congestive) heart failure
--- NOTE | 2024-05-12 12:54 | Surgery Progress Note ---
Date of Service May 12, 2024 Assessment & Plan (1) CAD (coronary artery disease), [place] coronary artery: (2) Calculous cholecystitis with obstruction: Plan: Patient's symptoms are resolving and LFTs continue to trend down. Patient is currently holding Plavix in case he would proceed to have surgery as an in patient. Today is day 2 of an anticipated 5 day hold. We discussed the possibility of being discharged to have an elective procedure if his symptoms resolve. He is agreeable to this. He is on a carb consistent diet at this time, I do recommend low fat as well if possible. Surgery will follow up in the am if patient is still in patient. Admission and Anticipated Discharge Date Admission Date: May 12, 2024 Subjective Patient is on a regular diet and tolerating. He states his symptoms have significantly improved. He admits to some residual mild tenderness at the very lateral right upper abdomen. He has had a BM and is urinating well. Physical Exam Constitutional: not ill appearing, not in distress and not diaphoretic Respiratory: normal respiratory effort; no respiratory distress, no labored breathing and does not use accessory muscles Cardiovascular: Rate/Rhythm: regular rate; not tachycardic Gastrointestinal (Abdomen): obese Mild TTP far lateral RUQ Results & Data Vital Signs (Past 12 Hours) Vital Signs Temp Pulse Pulse Resp BP Pulse Ox O2 Del Method 05/12/24 10:50 36.6 C 78 18 155/77 H 92 Room Air 05/12/24 08:30 Room Air 05/12/24 07:30 36.9 C 84 16 131/73 93 Room Air 05/12/24 07:00 82 05/12/24 05:54 36.6 C 84 20 134/72 94 Room Air Laboratory Results WBC WNL BUN/Childhood Development Teacher 58/3.2 LFTs trending down. T bili down to 6.2 PG Care Time/CCT Total # of Minutes Spent Total Time Spent with Patient: Total time spent is greater than 50% in coordination of care (as documented) at patient's floor/unit and/or counseling patient: Coding Level of Care Code 12772 SUB INP/OBS CARE 04/19MIN Diagnoses CAD (coronary artery disease), [place] coronary artery I25.10 Calculous cholecystitis with obstruction K80.01
[2024-05-12] MEDS: INSULIN, Rapid-Acting PUMP SCH (13:23)
[2024-05-12] MEDS: FAMOTIDINE 20 MG TAB PO SCH (21:30)
[2024-05-13 03:28] VITALS: O2SAT 95
[2024-05-13 06:58] LABS: Basophils # (auto) 0.01 K/uL (0.00-0.20); Basophils % (auto) 0.1 %; Eosinophils # (auto) 0.03 K/uL (0.00-0.50); Eosinophils % (auto) 0.3 %; Hematocrit (blood only) 40.1 % (42.0-52.0); Hemoglobin 13.3 g/dl (14.0-18.0); Immature Granulocytes # (auto) 0.11 K/uL (0.01-0.20); Immature Granulocytes % (auto) 1.3 %; Lymphocytes # (auto) 0.42 K/uL (1.20-3.40); Lymphocytes % (auto) 4.8 %; Mean Corpuscular Hemoglobin 27.7 pg (25.0-34.0); Mean Corpuscular Hgb Conc 33.2 g/dL (32.0-36.0); Mean Corpuscular Volume 83.5 fL (80.0-100.0); Mean Platelet Volume 9.8 fL (9.4-12.4); Monocytes # (auto) 0.94 K/uL (0.11-0.59); Monocytes % (auto) 10.8 %; Neutrophils # (auto) 7.16 K/uL (1.40-6.50); Neutrophils % (auto) 82.7 %; Platelet Count 121 K/uL (130-400); RDW Coefficient of Variation 14.9 % (11.5-14.5); RDW Standard Deviation 45.6 fL (36.4-46.3); White Blood Count 8.67 K/ul (4.8-10.8)
[2024-05-13 07:12] LABS: Albumin Level 3.3 gm/dl (3.4-5.0); BUN Creatinine Ratio 19.8 (10-20); Bilirubin,Total 3.8 mg/dl (0.2-1.0); Calcium 8.5 mg/dl (8.6-10.3); Creatinine Clr Calc Pharmacy 30.7 ml/min; Globulin 3.2 gm/dl (2.5-4.0); Potassium 3.3 mmol/L (3.5-5.1); Total Protein 6.5 gm/dl (6.0-8.3)
[2024-05-13 07:20] VITALS: BP 156/80; PULSE 72; RESP 18; TEMP 98.1
[2024-05-13] MEDS: POTASSIUM CHLORIDE CRTAB 20 MEQ TABCR PO STA (08:04)
--- NOTE | 2024-05-13 09:17 | Discharge Summary ---
Discharge Summary Date of Service May 13, 2024 Principal Dx & Hospital Course #1 = Principal Diagnosis (1) Calculous cholecystitis with obstruction: He appeared to have cholelithiasis with choledocholithiasis and apparently passed a stone. Appreciate GI consultation and recommendations. ERCP has been completed. Total bilirubin is trending downward. Liver function enzymes are also trending downward. Diet has been advanced. (2) STEVEN (acute kidney injury): On chronic kidney disease stage III. Creatinine is now trending back towards baseline with IV fluids. Will repeat lab testing again later this week with results to PCP. (3) (HFpEF) heart failure with preserved ejection fraction: No overt evidence of congestive heart failure. Monitor intake and output. (4) CAD (coronary artery disease), [place] coronary artery: Stable. Continue current medical management (5) [id number] deficiency: By history. Currently stable. Continue current medical management (6) Type 2 diabetes mellitus: Stable. Diet has been advanced. Sliding scale insulin coverage as needed. Plan Home today, May 13. Repeat basic metabolic profile later this week with results to PCP. Admission HPI Per Admitting Provider Magdiel is a 69-year-old male with PMH of T2DM, HFpEF, CKD, anxiety, depression, COPD, alpha 1 antitrypsin deficiency, and dyslipidemia. He presented via EMS on 05/10 for epigastric pain that began around 0200. Patient reports that the pain woke him from sleep, and initially he was feeling very bloated, so he got up and took Gas-X. This did not help his symptoms, and it gradually worsened throughout the night. He developed nausea and dry heaves overnight, and when he woke his up around 5 AM, he told her he was having chest pain. Patient gave him a nitro, but he reports he threw it back up. He reports the pain is largely epigastric, and transverse across his upper abdomen. He characterizes it as an intermittent, dull, achy pain which he rates 3/10 after receiving morphine in the ED, and 10/10 at worst. No radiation to the shoulders, jaws, back, or arms. Patient denies prior history of MIs. Patient did not take any of his regular morning medicine today. He did not take any pain medicine prior to coming into the hospital. He also reports that he threw up in the ambulance. Patient was given 3 doses of nitro en route. Patient does have a cardiac hi story; history of CHF and a heart stent. He reports good compliance with taking his Lasix. While he has had some weight gain recently, he reports he watches his salt intake. No sick contacts to his knowledge. While he still having some residual epigastric pain, he reports he is chest pain-free at time of admission. No prior history of GERD or reflux to his knowledge. No recent change in diet; he reports he had barbecue last night, but normally this does not block his stomach. No prior history of issues with his gallbladder. No recent falls or injuries to the abdomen or chest wall. Patient was having some shortness of breath this morning, which he believes might have been secondary to the epigastric pain. He denies smoking, tobacco use, recent alcohol use. Patient is hypertensive at 153/134 at time of admission; vitals otherwise stable. ED course: Morphine sulfate 4 mg IV Zofran 4 mg IV ROS: Patient endorses fever, SOB at rest and exertion during the event, dry cough, epigastric pain, nausea, and vomiting. Patient denies body aches, chills, dizziness, lightheadedness, changes in vision, photophobia, headaches, pleuritic CP, diarrhea, melena, burning with urination, blood in the urine/stool, or numbness/tingling in the arms or legs. Discharge Exam General-alert and oriented x3, no fever, no chills HEENT-head atraumatic and normocephalic, pupils equal and reactive to light, extraocular muscles intact Neck-no lymphadenopathy or thyromegaly, trachea midline Chest-clear to auscultation. No rales, wheezing or rhonchi Cardiac-regular rate and rhythm, normal S1 and S2 Abdomen-normal bowel sounds, no hepatosplenomegaly. Mild right upper quadrant discomfort without rebound or guarding Extremities-no cyanosis, clubbing, or edema Neuro-cranial nerves II through XII intact, motor and sensory function within normal limits, strength symmetrical, no focal deficits Psych-normal affect, normal mood Discharge Plan Discharge Items Patient Disposition: Home - Self-Care Reason For Visit: VIRAL GI ILLNESS Discharge Diagnosis: Suspected choledocholithiasis, elevated liver enzymes, elevated bilirubin, acute on chronic kidney disease stage III Activity: Resume your previous activity Non-emergency contact: Primary Care Provider Call non-emergency contact if: your symptoms worsen Follow-up/Referrals: Qamar Handy, [Primary Care Provider] - Diet: Carb Consistent or DM2 and Heart Healthy Addtl Attending Provider Instructions: All medications remain the same. Get repeat lab test this or Sunday. You do not have to be fasting for this. Results will be sent to your primary care provider. See your PCP as soon as possible to discuss possible scheduling of laparoscopic gallbladder removal Pending Studies at Discharge: No Stand-Alone Forms: My [facility], Smoking Cessation Medications and DC Order Prescriptions: Continued allopurinol 100 mg tablet 200 mg PO BID Qty: 360 3RF (DME) lancets 30 gauge misc See Rx Instructions .Route Qty: 300 3RF Rx Instructions: test blood sugars three times a day isosorbide mononitrate 120 mg tablet extended release 24 hr 240 mg PO QAM Qty: 200 2RF (DME) Omnipod 5 G6 Pods (Gen 5) Cartridge See Rx Instructions .Route Qty: 10 11RF Rx Instructions: change pod every 3 days (DME) Omnipod 5 G6 Intro Kit (Gen 5) Cartridge See Rx Instructions .Route Qty: 1 0RF Rx Instructions: change pods every 3 days fluoxetine 60 mg tablet 60 mg PO QAM Qty: 90 3RF (DME) insulin syringe-needle U-100 [BD Insulin Syringe Ultra-Fine] 0.5 mL 30 gauge x 1/2" syringe See Rx Instructions .Route Qty: 200 11RF Rx Instructions: use new needle for injections 5 x daily (DME) OneTouch Verio test strips Strip See Rx Instructions .Route Qty: 300 3RF Rx Instructions: test blood sugars three times a day (DME) Dexcom G7 Animal Science Instructor Misc See Rx Instructions .Route Qty: 1 0RF Rx Instructions: for use with Dexcom G7 sensors (DME) Dexcom G7 Sensor Device See Rx Instructions .Route Qty: 3 11RF Rx Instructions: change sensor every 10 days insulin aspart U-100 [Novolog U-100 Insulin aspart] 100 unit/mL solution 100 unit subcut UD Rx Instructions: To be used in the Omnipod 5 pump. per pt he does 200 units last for 3 days metolazone 5 mg tablet 5 mg PO DAILY PRN (Reason: weight gain) Qty: 1 0RF carvedilol 12.5 mg tablet 25 mg PO BID losartan 25 mg tablet 50 mg PO QAM Hold Instructions: Resume on 08/02/22. furosemide 40 mg tablet 40 mg PO BID clopidogrel 75 mg tablet 75 mg PO QAM Rx Instructions: TAKE 1 TABLET BY MOUTH ONCE DAILY potassium chloride 20 mEq tablet extended release 20 meq PO UD Rx Instructions: 1- 2 tablets AM and 1 tablet in the PM; dapagliflozin propanediol [Farxiga] 10 mg tablet 10 mg PO QAM Trelegy Ellipta 200-62.5-25 mcg blister with device 1 inh inhalation QAM Discharge Orders: Discharge Order (Routine); Ordered 05/13/24 Ordered By: Silas Lan Admission Data Admit Date/Time: 05/12/24 10:31 Attending Provider: Silas Lan Admit Provider: Dony Kirk Primary Care Provider: Qamar Handy Other Providers: Dony Kirk; Quang Lane; Taye Cox Hospital Stay Data Consultations 05/10/24 09:15 ED Decision to Admit Stat 05/11/24 12:56 Consult Gastroenterology Routine 05/11/24 12:58 Consult General Surgery Routine Procedures Performed Operation Date: 05/11/24 17:00 Actual Procedures p Endoscopic Retrograde Cholangiopancreatograpthy(Not Applicable) - Quang Lane MD s Esophagogastroduodenoscopy(Not Applicable) - Quang Lane MD Diagnostic Imagining Performed 05/10/24 06:48 CT abd pelvis wo con Stat CT chest diagnostic wo con Stat 05/11/24 [place] ERCP biliary ductal Routine 05/11/24 10:19 US gallbladder Stat Pending Results Patient Have Any Pending Studies at Discharge: No Discharge Instructions Given to Patient (Per Discharging Provider) All medications remain the same. Get repeat lab test this or Sunday. You do not have to be fasting for this. Results will be sent to your primary care provider. See your PCP as soon as possible to discuss possible scheduling of laparoscopic gallbladder removal Total Time Total Time Spent Total Time Spent (In Minutes): 45-minute Coding Level of Care Code 80642 INP/OBS DISCH >30 MIN Diagnoses Calculous cholecystitis with obstruction K80.01 STEVEN (acute kidney injury) N17.9 (HFpEF) heart failure with preserved ejection fraction I50.33 Heart failure chronicity: acute on chronic CAD (coronary artery disease), [place] coronary artery I25.10 [id number] deficiency E88.01 Type 2 diabetes mellitus E11.9
--- NOTE | 2024-05-13 10:20 | Surgery Progress Note ---
Date of Service May 13, 2024 Assessment & Plan (1) CAD (coronary artery disease), [place] coronary artery: Plan: continue antiplatelets and will hold outpatient per surgeon's recommendation for elective cholecystectomy (2) Calculous cholecystitis with obstruction: Plan: Resolved Recommend abx course Follow up with surgery outpatient for elective cholecystectomy Admission and Anticipated Discharge Date Admission Date: May 12, 2024 Subjective Pt seen this am. Denies abdominal pain, N/V. Tolerating diet. States he will be going home today Results & Data Vital Signs (Past 12 Hours) Vital Signs Temp Pulse Pulse Resp BP Pulse Ox O2 Del Method 05/13/24 07:19 36.7 C 72 18 156/80 H 95 Room Air 05/13/24 06:45 81 05/13/24 03:27 36.9 C 77 16 158/90 H 95 Room Air 05/12/24 23:29 36.6 C 71 12 149/70 H 93 Room Air 05/12/24 22:25 Room Air PG Care Time/CCT Total # of Minutes Spent Total Time Spent with Patient: Total time spent is greater than 50% in coordination of care (as documented) at patient's floor/unit and/or counseling patient: Coding Level of Care Code 99418 SUB INP/OBS CARE 04/19MIN Diagnoses CAD (coronary artery disease), [place] coronary artery I25.10 Calculous cholecystitis with obstruction K80.01
== END 2024-05-13 10:30 | disposition home or self-care (01) | DRG 445 ==
LOC: EDINP 06:40 → ED 06:40 → SUATTDRO 09:44 → 2N 14:14

== ENCOUNTER 2024-05-15 17:01 | Inpatient (IN) ==
[2024-05-15 17:31] LABS: Basophils # (auto) 0.02 K/uL (0.00-0.20); Basophils % (auto) 0.2 %; Eosinophils # (auto) 0.11 K/uL (0.00-0.50); Eosinophils % (auto) 1.1 %; Hematocrit (blood only) 44.8 % (42.0-52.0); Hemoglobin 15.3 g/dl (14.0-18.0); Immature Granulocytes # (auto) 0.06 K/uL (0.01-0.20); Immature Granulocytes % (auto) 0.6 %; Lymphocytes # (auto) 0.59 K/uL (1.20-3.40); Lymphocytes % (auto) 6.1 %; Mean Corpuscular Hemoglobin 28.1 pg (25.0-34.0); Mean Corpuscular Hgb Conc 34.2 g/dL (32.0-36.0); Mean Corpuscular Volume 82.4 fL (80.0-100.0); Mean Platelet Volume 9.2 fL (9.4-12.4); Monocytes # (auto) 1.19 K/uL (0.11-0.59); Monocytes % (auto) 12.3 %; Neutrophils # (auto) 7.68 K/uL (1.40-6.50); Neutrophils % (auto) 79.7 %; Platelet Count 197 K/uL (130-400); RDW Coefficient of Variation 14.1 % (11.5-14.5); RDW Standard Deviation 42.4 fL (36.4-46.3); Red Blood Count 5.44 M/uL (4.70-6.10); White Blood Count 9.65 K/ul (4.8-10.8)
[2024-05-15] MEDS: ONDANSETRON INJ 2 MG/ML 2 ML VIAL IV STA (17:38)
[2024-05-15] MEDS: HYDROmorphone INJ 0.5 MG/0.5 ML SYR IV PRN ×2 (17:38→22:02)
[2024-05-15 17:46] LABS: Albumin Globulin Ratio 0.9 (0.9-2); Albumin Level 3.6 gm/dl (3.4-5.0); BUN Creatinine Ratio 21.7 (10-20); Bilirubin,Total 2.2 mg/dl (0.2-1.0); Calcium 9.2 mg/dl (8.6-10.3); Creatinine Clr Calc Pharmacy 42.6 ml/min; Globulin 3.9 gm/dl (2.5-4.0); Total Protein 7.5 gm/dl (6.0-8.3)
[2024-05-15] MEDS: POTASSIUM CHLORIDE / WTR 10 MEQ/100 ML PLCT IV SCH (18:09)
[2024-05-15] MEDS: PIPERACILLIN/TAZOBACTAM 4.5 GM/100 ML BAG IV ONE (18:10)
--- NOTE | 2024-05-15 18:18 | Emergency Department Note ---
Impression & Plan Abdominal pain, RUQ (right upper quadrant), Elevated LFTs ED Provider Note NAME: PRAMOD DELCID AGE: 69 SEX: Male INFORMANT: Patient ED PROVIDER(S): Daniel Batista MD CHIEF COMPLAINT: Abdominal pain PLAN: Disposition: Admitted Outpatient prescription management: none Referral: None MEDICAL DECISION MAKING: Patient was in because right upper quadrant abdominal pain. He was just in the hospital for the same and was scheduled to have gallbladder surgery. He had tenderness in the right upper quadrant. He was afebrile. The patient's white blood cell count was not significantly elevated. Mild left shift noted. Patient was found to have improving LFTs. Due to the pain patient was given Dilaudid and Zofran on reassessment felt significantly better. Chemistry panel revealed mild hypokalemia. This was repleted. I did consult with Dr. Janiya Vital of general surgery. She asked for the patient to have IV Zosyn and be admitted to medicine with surgical consultation. Anticipating possible surgery tomorrow. Consultation was made with Dr. Luis Paul of the [facility] service. Case discussed and diagnostics were reviewed. Patient was evaluated in the ER for further management. Care/management discussed with: print project manager Level of care consideration(s): After review of the information above and other included data, I feel the patient requires escalation of care to admission Triage Nursing notes: reviewed and agree them. Vital Signs: reviewed and remarkable for mild hypertension Additional History obtained from: Patient's helps detail his hospitalization. She does note that he appears less jaundiced. Chronic Medical/Social Conditions affecting care: CAD Prior/ Outside/ External records reviewed: none Differential Diagnosis: Biliary pathology, renal colic, UTI, appendicitis, diverticulitis, mesenteric ischemia, aortic pathology, infections, inflammatory bowel disease, PUD, as well as other pathologies. Diagnostics, independently interpreted by me: ECG: Twelve-lead ECG reveals normal sinus rhythm at 83 beats per minute. No evidence of pericarditis, ischemia, ectopy, or dysrhythmia. Cardiac Monitoring: Cardiac monitoring ordered by me: The patient was placed on continuous cardiac monitoring and observed. It revealed a normal sinus rhythm at 80 beats per minute without ectopy or evidence of dysrhythmia. Medical decision rules: none Imaging studies: Chest x-ray. Findings: A chest x-ray was performed and revealed no pneumothorax, effusion, infiltrate, pulmonary edema, free air under the diaphragm, or wide mediastinum. Impression: No acute disease. HPI: 69 year old Male arrives for evaluation of right upper quadrant abdominal. This started to worsen 2 days ago since he was discharged and is worsening today. The patient also notes the following associated symptoms, decreased appetite. Patient notes a little bit of diarrhea with some nausea. During hospitalization patient had LFTs elevation as well as jaundice. He underwent ERCP due to suspected choledocholithiasis. He was on Plavix and surgery was deferred due to his Plavix use. Patient states that he has been off Plavix for 6 days now. Patient contacted general surgery office and was directed to the ER due to the increased pain. The patient has found no relieving factors. Current pain is rated as 10/10. Pt denies LOC, headache, fevers, chills, diaphoresis, visual changes, neck pain, chest pain, breathing difficulties, vomiting, back pain, melena, hematochezia, urinary symptoms, numbness, weakness, lymphadenopathy, rash, or other complaints.. PAST MEDICAL HISTORY: See Below, CAD PAST SURGICAL HISTORY: See Below, ERCP SOCIAL HISTORY: See Below, HOME MEDICATIONS: See Below ALLERGIES: See Below VITALS: See Below PHYSICAL EXAMINATION: GENERAL: Awake, alert, well-appearing, in no distress HENT: Normocephalic, atraumatic. Oropharynx unremarkable. EYES: Normal conjunctiva. Sclera mildly-icteric. PERRLA NECK: Inspection normal. Non-tender. Supple. No nuchal rigidity. FROM. No masses. RESPIRATORY: Clear to auscultation. No wheezes. No rales. Normal respiratory effort. CARDIAC: Normal rate. Normal rhythm. No murmurs. No rubs. Extremities warm and well perfused. Pulses equal. No JVD. GI: Soft, non-distended. Right upper quadrant tenderness to palpation. No rebound or guarding. No masses. RECTAL: Deferred. MUSCULOSKELETAL: Atraumatic. Chest examination reveals no tenderness. The back is symmetrical on inspection without obvious abnormality. There is no CVA tenderness to palpation. No joint edema. LOWER EXTREMITIES: Calves are equal size bilaterally and non-tender. No edema. No discoloration. NEURO: Normal sensorium. No sensory or motor deficits noted. SKIN: No rash or jaundice noted. PROCEDURES: none CRITICAL CARE: none OBSERVATION NOTE: none Past Med/Surg History Problem List (Updated 05/15/24 @ 18:18 by Daniel Batista MD) Elevated LFTs (Acute) Abdominal pain, RUQ (right upper quadrant) (Acute) Type 2 diabetes mellitus CAD (coronary artery disease), [place] coronary artery STEVEN (acute kidney injury) Calculous cholecystitis with obstruction Thrombocytopenia Anticoagulant long-term use Obstructive jaundice Chest pain (Acute) Abdominal pain (Acute) Viral gastroenteritis Diabetes type 2, controlled Chronic cough (HFpEF) heart failure with preserved ejection fraction (Acute) Diabetic nephropathy associated with type 2 diabetes mellitus Chronic kidney disease, stage 3b (Acute) Cardiomyopathy Anxiety and depression Moderate COPD (chronic obstructive pulmonary disease) Nonobstructive atherosclerosis of coronary artery Fatty liver (Chronic) Hypertension Tgdwo-0-jfbjwajzqbd deficiency Anemia of chronic disease Dyslipidemia Asbestosis Medical History Obesity Vitamin D deficiency Statin myopathy Sleep apnea Sensorineural hearing loss (SNHL) of both ears Splenomegaly History of pancreatitis History of kidney injury Cervical radiculopathy right C8 Pulmonary nodules Gout Diverticular disease Glaucoma NO MEDICATIONS. "PRE-GLAUMCOMA" Surgical History Fusion of spine C4-7 ACDF S/P trigger finger release right and left hands H/O elbow surgery LEFT S/P Achilles tendon repair LEFT History of esophagogastroduodenoscopy (EGD) History of colonoscopy History of tonsillectomy History of cardiac cath NO STENTS. FOLLOWS WITH DR. PRYOR. S/P wrist surgery H/O cervical spine surgery Family History Grandmother Family history of diabetes mellitus Uncle Family history of diabetes mellitus Father COPD (chronic obstructive pulmonary disease) Lung disease Mother Hypertension Aunt Colorectal cancer Denies family history of Ovarian cancer Prostate cancer Myocardial infarction Breast cancer Social History Smoking Status: Never smoker Tobacco Type: Cigars Age Started Using Tobacco: 20; Cigarettes Per Day: Rare cigar smoker, ~1x month; Second Hand Exposure: Yes; Do You Dip or Chew Tobacco: No; Hx Alcohol Use: No Hx Substance Use: No Preferred Language: Slovenian Communication Ability: Effective Visual Impairment: Partially Limited Hearing Ability: Normal Building Supervisor Required: No Beliefs That Will Affect Care: None marital status: Current Living Situation: Spouse Current Living Situation Comment: home w spouse current occupational status: employed and disabled 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 [employer] Feels Safe at Home: Yes Childhood Exposure to Second-Hand Smoke: Yes Diet: diabetic, low salt and regular caffeine: Yes (very rare) during the past year weight has: remained stable Dental Care, Regularly: No Physical Activity Frequency: Does not Exercise Seatbelt Use: always Sunscreen Use: No Assistive Devices: None Allergies Allergies Allergy/AdvReac Type Severity Reaction Status Date / Time ketorolac [From Toradol] Allergy Severe kidney Verified 04/07/24 13:24 failure NSAIDS (Non-Steroidal Allergy Unknown Unknown Verified 04/07/24 13:24 Anti-Inflamma [id number] Reductase AdvReac Intermediate Muscle pain Verified 04/07/24 13:24 Inhibitor [Uxheqdy-Trg-Ysr Reductase Inhibitor] Home Meds Home Medications Medication Instructions Recorded Confirmed clopidogrel 75 mg tablet 75 mg PO QAM 03/03/24 05/14/24 furosemide 40 mg tablet 40 mg PO BID 03/12/24 05/14/24 insulin aspart U-100 100 unit/mL 100 unit subcut UD 04/21/24 05/14/24 subcutaneous solution (Novolog U-100 Insulin aspart) carvedilol 12.5 mg tablet 25 mg PO BID 04/30/24 05/14/24 losartan 25 mg tablet 50 mg PO QAM 04/30/24 05/14/24 potassium chloride 20 mEq 20 meq PO UD 04/30/24 05/14/24 tablet,extended release dapagliflozin propanediol 10 mg 10 mg PO QAM 05/10/24 05/14/24 tablet (Farxiga) fluticasone fur. 200 mcg-umeclid 1 inh inhalation QAM 05/10/24 05/14/24 62.5 mcg-vilant 25 mcg inhalat.powder (Trelegy Ellipta) Previous Rx's Medication Instructions Recorded allopurinol 100 mg tablet 200 mg (2 x 100 mg) PO BID #360 06/23/20 tabs lancets 30 gauge #300 ea 05/29/23 isosorbide mononitrate 120 mg 240 mg (2 x 120 mg) PO QAM #200 10/09/23 tablet,extended release 24 hr tabs blood-glucose meter,continuous #1 ea 11/08/23 (Dexcom G7 Police Magistrate) blood-glucose sensor (Dexcom G7 #3 ea 11/08/23 Sensor device) insulin pump cart,automated,BT #10 ea 12/03/23 (Omnipod 5 G6 Pods (Gen 5) subcutaneous cartridge) insulin pump cartridge,automated #1 ea 12/06/23 dose,BT with controller subcutaneous (Omnipod 5 G6 Intro Kit (Gen 5) subcutaneous cartridge with controller) fluoxetine 60 mg tablet 60 mg PO QAM #90 tabs 04/02/24 insulin syringe-needle U-100 0.5 #200 ea 04/18/24 mL 30 gauge x 1/2" (BD Insulin Syringe Ultra-Fine) metolazone 5 mg tablet 5 mg PO DAILY PRN weight gain #1 04/29/24 tab OneTouch Verio test strips (blood #300 ea 05/05/24 sugar diagnostic) cholecalciferol (vitamin D3) 1,250 50,000 unit PO .COMPLEX #6 caps 05/14/24 mcg (50,000 unit) capsule cholecalciferol (vitamin D3) 50 4,000 unit PO DAILY #1 cap 05/14/24 mcg (2,000 unit) capsule evolocumab 140 mg/mL subcutaneous 140 mg subcut Q14D #2 mL 05/14/24 pen injector (Repatha SureClick) Results & Data (ED) Vital Signs Vital Signs - 24 hr 05/15/24 17:06 05/15/24 17:58 Temperature 36.7 C Temperature Source Temporal Artery Scan Pulse Rate 78 80 Respiratory Rate 18 Respiratory Effort / Characteristics Non-Labored Respiratory Depth Normal Respiratory Pattern Regular Blood Pressure 176/98 H Blood Pressure Mean 124 Pulse Oximetry 95 Oxygen Delivery Method Room Air Sepsis Recent Fever Within 48 Hours No Sepsis New/Unexplained Change in Mental Status N/A Sepsis Action Taken by Nursing No Action Required Laboratory Data 05/15/24 17:17 05/15/24 17:17 Lab Results 05/15/24 Range/Units 17:17 WBC 9.65 (4.8-10.8) K/ul RBC 5.44 (4.70-6.10) M/uL Hgb 15.3 (14.0-18.0) g/dl Hct 44.8 (42.0-52.0) % MCV 82.4 (80.0-100.0) fL MCH 28.1 (25.0-34.0) pg MCHC 34.2 (32.0-36.0) g/dL RDW Std Deviation 42.4 (36.4-46.3) fL RDW Coeff of Junito 14.1 (11.5-14.5) % Plt Count 197 (130-400) K/uL MPV 9.2 L (9.4-12.4) fL Immature Gran % (Auto) 0.6 % Neut % (Auto) 79.7 % Lymph % (Auto) 6.1 % [place] % (Auto) 12.3 % Eos % (Auto) 1.1 % Baso % (Auto) 0.2 % Neut # (Auto) 7.68 H (1.40-6.50) K/uL Lymph # (Auto) 0.59 L (1.20-3.40) K/uL [place] # (Auto) 1.19 H (0.11-0.59) K/uL Eos # (Auto) 0.11 (0.00-0.50) K/uL Baso # (Auto) 0.02 (0.00-0.20) K/uL Immature Gran # (Auto) 0.06 (0.01-0.20) K/uL Sodium 133 L (136-145) mmol/L Potassium 3.0 L (3.5-5.1) mmol/L Chloride 94 L (98-107) mmol/L Carbon Dioxide 30 (21-32) mmol/L Anion Gap 9 (3-11) BUN 38 H (6-23) mg/dl Creatinine 1.75 H (0.6-1.4) mg/dl Est Cr Clr Drug Dosing 42.6 ml/min eGFR 42.15 BUN/Creatinine Ratio 21.7 H (10-20) Glucose 165 H (70-99(Fasting)) mg/dl Calcium 9.2 (8.6-10.3) mg/dl Total Bilirubin 2.2 H (0.2-1.0) mg/dl AST 18 (13-39) U/L ALT 37 (7-52) U/L Alkaline Phosphatase 227 H (34-104) U/L Total Protein 7.5 (6.0-8.3) gm/dl Albumin 3.6 (3.4-5.0) gm/dl Globulin 3.9 (2.5-4.0) gm/dl Albumin/Globulin Ratio 0.9 (0.9-2) Lipase 60 (11-82) U/L Administered Medications Hydromorphone HCl (Hydromorphone Inj 0.5 Mg/0.5 Ml Syr) 0.5 mg IV Q15M PRN PRN Reason: Pain Stop: 05/29/24 17:25 Last Admin: 05/15/24 17:38 Dose: 0.5 mg Documented By: SAMUEL Piperacillin Sod/Tazobactam Sod (Zosyn) 4.5 gm in 100 mls @ 200 mls/hr IV NOW ONE; Protocol Stop: 05/15/24 18:21 Last Admin: 05/15/24 18:10 Dose: 200 mls/hr Documented By: SAMUEL Potassium Chloride (K Wilder / Wtr) 10 meq in 100 mls @ 100 mls/hr IV Q1H ANGEL Stop: 05/15/24 19:59 Last Admin: 05/15/24 18:09 Dose: 100 mls/hr Documented By: SAMUEL Discontinued Medications Ondansetron HCl (Ondansetron Inj 2 Mg/Ml 2 Ml Vial) 4 mg IV NOW STA Stop: 05/15/24 17:27 Last Admin: 05/15/24 17:38 Dose: 4 mg Documented By: SAMUEL Discharge Plan Visit Data Chief Complaint: Abdominal Pain Stated Complaint: D/C 2 DAYS AGO, GALLBLADDER PAIN, NOT ANY BETTER ED Provider: Daniel Batista Discharge Problem: Abdominal pain, RUQ (right upper quadrant), Elevated LFTs Forms Stand Alone Forms: My [facility] [employer] Prescriptions Prescriptions: No Action allopurinol 100 mg tablet 200 mg PO BID Qty: 360 3RF (DME) lancets 30 gauge misc See Rx Instructions .Route Qty: 300 3RF Rx Instructions: test blood sugars three times a day isosorbide mononitrate 120 mg tablet extended release 24 hr 240 mg PO QAM Qty: 200 2RF (DME) Omnipod 5 G6 Pods (Gen 5) Cartridge See Rx Instructions .Route Qty: 10 11RF Rx Instructions: change pod every 3 days (DME) Omnipod 5 G6 Intro Kit (Gen 5) Cartridge See Rx Instructions .Route Qty: 1 0RF Rx Instructions: change pods every 3 days fluoxetine 60 mg tablet 60 mg PO QAM Qty: 90 3RF (DME) insulin syringe-needle U-100 [BD Insulin Syringe Ultra-Fine] 0.5 mL 30 gauge x 1/2" syringe See Rx Instructions .Route Qty: 200 11RF Rx Instructions: use new needle for injections 5 x daily (DME) OneTouch Verio test strips Strip See Rx Instructions .Route Qty: 300 3RF Rx Instructions: test blood sugars three times a day (DME) Dexcom G7 Police Magistrate Misc See Rx Instructions .Route Qty: 1 0RF Rx Instructions: for use with Dexcom G7 sensors (DME) Dexcom G7 Sensor Device See Rx Instructions .Route Qty: 3 11RF Rx Instructions: change sensor every 10 days insulin aspart U-100 [Novolog U-100 Insulin aspart] 100 unit/mL solution 100 unit subcut UD Rx Instructions: To be used in the Omnipod 5 pump. per pt he does 200 units last for 3 days metolazone 5 mg tablet 5 mg PO DAILY PRN (Reason: weight gain) Qty: 1 0RF carvedilol 12.5 mg tablet 25 mg PO BID losartan 25 mg tablet 50 mg PO QAM Hold Instructions: Resume on 08/02/22. cholecalciferol (vitamin D3) 1,250 mcg (50,000 unit) capsule 50,000 unit PO .COMPLEX Qty: 6 0RF Rx Instructions: 50,000 units orally take once weekly with largest meal of the day; cholecalciferol (vitamin D3) 50 mcg (2,000 unit) capsule 4,000 unit PO DAILY Qty: 1 0RF Repatha SureClick 140 mg/mL pen injector 140 mg subcut Q14D Qty: 2 5RF furosemide 40 mg tablet 40 mg PO BID Hold Instructions: Home Medication placed on hold at Doctor's office clopidogrel 75 mg tablet 75 mg PO QAM Rx Instructions: TAKE 1 TABLET BY MOUTH ONCE DAILY potassium chloride 20 mEq tablet extended release 20 meq PO UD Rx Instructions: 1- 2 tablets AM and 1 tablet in the PM; dapagliflozin propanediol [Farxiga] 10 mg tablet 10 mg PO QAM Trelegy Ellipta 200-62.5-25 mcg blister with device 1 inh inhalation QAM Referrals Referrals: Qamar Handy, [Primary Care Provider] -
--- NOTE | 2024-05-15 18:33 | History & Physical Report ---
Date of Service May 15, 2024 Assessment & Plan (1) Acute cholecystitis: Plan: Suspected previous admission but awaiting to be off clopidogrel for 5 days which he now has held IV Zosyn as requested by general surgery NPO, consult general surgery Patient has coronary artery disease with stable shortness of breath and no chest pain. Stent placed in 2022 with follow-up catheterization later that year in September showing nonobstructive coronary artery disease. Okay to hold clopidogrel perioperatively however should continue on aspirin which she is being noncompliant taking as soon as possible postoperatively. She will remain on beta-ponce perioperatively (do not hold prior to operation). We also recommend isosorbide mononitrate is given the day before his operation, losartan and Lasix can be held and restarted postoperatively. He is currently stable from a c ongestive heart failure standpoint on Lasix 40 mg p.o. BID. Renal function appears improving from prior hospitalization when he was likely IV diuresed. While NPO will place on lactated Ringer's at 100 mL/h for maximum 2 L. Monitor overnight for worsening respiratory status. Patient has mild hypokalemia, once this is replete we will repeat labs tomorrow as long as no worsening respiratory status overnight he will be medically optimized for surgery. (2) CAD (coronary artery disease), [place] coronary artery: Plan: Patient is supposed to be taking aspirin but reportedly not reliably taking this, this should be restarted post operatively Holding clopidogrel for his operation Continue carvedilol, isosorbide mononitrate, intolerant to statins, losartan as above (3) Type 2 diabetes mellitus: Plan: Patient has an insulin pump although has run out of insulin at this time Basal dosing at 2.7 units/h = 65 units per day, given he is n.p.o. we will half this dose and make it BID at 15 units Continue his usual bolus dosing with NovoLog: --Goal BSG Range: Low 110 mg/dL, High 140 mg/dL --Correction Factor: 27 mg/dL/unit --Carbohydrate ratio = 7 g/unit --BSGs ACHS if eating, q6h if npo (4) (HFpEF) heart failure with preserved ejection fraction: Plan: Currently appears euvolemic. Gentle IV fluids preoperatively while n.p.o. Restart Lasix at his home dose 40 mg p.o. BID postoperatively. (5) Moderate COPD (chronic obstructive pulmonary disease): Plan: No acute exacerbation Continue his routine maintenance inhaler. Plan VTE prophylaxis - deferred chemical pre-operatively Diet - NPO Disposition - admit to med/surg Admission and Anticipated Discharge Date Admission Date: May 15, 2024 History of Present Illness Chief Complaint: Right upper quadrant abdominal pain Primary Care Provider: Qamra Handy DO Magdiel Ceron is a 69 year old male who presents to the ER with intermittent right upper quadrant abdominal pain. He was recently admitted from May 10 to 2024 due to acute cholecystitis with choledocholithiasis. He was treated with ERCP however stone appeared to have spontaneously passed with no filling defects. No sphincterotomy was performed. His creatinine, bilirubin and LFTs improved. He was initially given intravenous Zosyn but no antibiotics given on discharge. He takes clopidogrel for history of coronary artery disease and surgery which this held 5 days prior to performing cholecystectomy therefore he was subsequently discharged for anticipation of outpatient cholecystectomy. After discharge the pain has intermittently returned in his right upper quadrant and he is able to hardly eat anything. No fever or chills, nausea but no vomiting. Has had loose stool the last few days. His symptoms appear to be much worse today therefore decided to return to the emergency room. Currently taking Lasix 40 mg p.o. BID. He reports his shortness of breath is at baseline. No chest pain on exertion. Leg swelling currently appears at baseline. Last took metolazone 2 days ago. He denies he is supposed to be taking aspirin but is noncompliant with this. He has continued to hold clopidogrel as recommended to fall surgery. Last dose of clopidogrel was on May 11. Allergies Allergy/AdvReac Type Severity Reaction Status Date / Time ketorolac [From Toradol] Allergy Severe kidney Verified 04/07/24 13:24 failure NSAIDS (Non-Steroidal Allergy Unknown Unknown Verified 04/07/24 13:24 Anti-Inflamma [id number] Reductase AdvReac Intermediate Muscle pain Verified 04/07/24 13:24 Inhibitor [Mniisml-Rgf-Ded Reductase Inhibitor] Home Medications Medication Instructions Recorded Confirmed Type allopurinol 100 mg tablet 200 mg (2 x 100 mg) PO BID #360 06/23/20 05/15/24 Rx tabs lancets 30 gauge #300 ea 05/29/23 05/15/24 Rx isosorbide mononitrate 120 mg 240 mg (2 x 120 mg) PO QAM #200 10/09/23 05/15/24 Rx tablet,extended release 24 hr tabs blood-glucose meter,continuous #1 ea 11/08/23 05/15/24 Rx (Dexcom G7 Gum Puller) blood-glucose sensor (Dexcom G7 #3 ea 11/08/23 05/15/24 Rx Sensor device) insulin pump cart,automated,BT #10 ea 12/03/23 05/15/24 Rx (Omnipod 5 G6 Pods (Gen 5) subcutaneous cartridge) insulin pump cartridge,automated #1 ea 12/06/23 05/15/24 Rx dose,BT with controller subcutaneous (Omnipod 5 G6 Intro Kit (Gen 5) subcutaneous cartridge with controller) clopidogrel 75 mg tablet 75 mg PO QAM 03/03/24 05/15/24 History furosemide 40 mg tablet 40 mg PO BID 03/12/24 05/15/24 History fluoxetine 60 mg tablet 60 mg PO QAM #90 tabs 04/02/24 05/15/24 Rx insulin syringe-needle U-100 0.5 #200 ea 04/18/24 05/15/24 Rx mL 30 gauge x 1/2" (BD Insulin Syringe Ultra-Fine) insulin aspart U-100 100 unit/mL 100 unit subcut 04/21/24 05/15/24 History subcutaneous solution (Novolog U-100 Insulin aspart) metolazone 5 mg tablet 5 mg PO DAILY PRN weight gain #1 04/29/24 05/15/24 Rx tab carvedilol 12.5 mg tablet 25 mg PO BID 04/30/24 05/15/24 History losartan 25 mg tablet 50 mg PO QAM 04/30/24 05/15/24 History potassium chloride 20 mEq 20 meq PO UD 04/30/24 05/15/24 History tablet,extended release OneTouch Verio test strips (blood #300 ea 05/05/24 05/15/24 Rx sugar diagnostic) dapagliflozin propanediol 10 mg 10 mg PO QAM 05/10/24 05/15/24 History tablet (Farxiga) fluticasone fur. 200 mcg-umeclid 1 inh inhalation QAM 05/10/24 05/15/24 History 62.5 mcg-vilant 25 mcg inhalat.powder (Trelegy Ellipta) cholecalciferol (vitamin D3) 1,250 50,000 unit PO .COMPLEX #6 caps 05/14/24 05/15/24 Rx mcg (50,000 unit) capsule cholecalciferol (vitamin D3) 50 4,000 unit PO DAILY #1 cap 05/14/24 05/15/24 Rx mcg (2,000 unit) capsule evolocumab 140 mg/mL subcutaneous 140 mg subcut Q14D #2 mL 05/14/24 05/15/24 Rx pen injector (Repatha SureClick) Past Med/Surg History Problem List (Updated 05/15/24 @ 22:45 by Luis Paul MD) Acute cholecystitis Elevated LFTs (Acute) Abdominal pain, RUQ (right upper quadrant) (Acute) Type 2 diabetes mellitus CAD (coronary artery disease), [place] coronary artery Calculous cholecystitis with obstruction Thrombocytopenia Anticoagulant long-term use Obstructive jaundice Chest pain (Acute) Diabetes type 2, controlled Chronic cough (HFpEF) heart failure with preserved ejection fraction (Acute) Diabetic nephropathy associated with type 2 diabetes mellitus Chronic kidney disease, stage 3b (Acute) Cardiomyopathy Anxiety and depression Moderate COPD (chronic obstructive pulmonary disease) Nonobstructive atherosclerosis of coronary artery Fatty liver (Chronic) Hypertension Mdfwk-1-rpgwkyeajjp deficiency Anemia of chronic disease Dyslipidemia Asbestosis Medical History Obesity Vitamin D deficiency Statin myopathy Sleep apnea Sensorineural hearing loss (SNHL) of both ears Splenomegaly History of pancreatitis History of kidney injury Cervical radiculopathy right C8 Pulmonary nodules Gout Diverticular disease Glaucoma NO MEDICATIONS. "PRE-GLAUMCOMA" Surgical History Fusion of spine C4-7 ACDF S/P trigger finger release right and left hands H/O elbow surgery LEFT S/P Achilles tendon repair LEFT History of esophagogastroduodenoscopy (EGD) History of colonoscopy History of tonsillectomy History of cardiac cath NO STENTS. FOLLOWS WITH DR. PRYOR. S/P wrist surgery H/O cervical spine surgery Family History Grandmother Family history of diabetes mellitus Uncle Family history of diabetes mellitus Father COPD (chronic obstructive pulmonary disease) Lung disease Mother Hypertension Aunt Colorectal cancer Denies family history of Ovarian cancer Prostate cancer Myocardial infarction Breast cancer Social History Smoking Status: Never smoker Tobacco Type: Cigars Age Started Using Tobacco: 20; Cigarettes Per Day: Rare cigar smoker, ~1x month; Second Hand Exposure: Yes; Do You Dip or Chew Tobacco: No; Hx Alcohol Use: No Hx Substance Use: No Preferred Language: Welsh Communication Ability: Effective Visual Impairment: Partially Limited Hearing Ability: Normal Residential Case Manager Required: No Beliefs That Will Affect Care: None marital status: Current Living Situation: Spouse Current Living Situation Comment: home w spouse current occupational status: employed and disabled 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 [employer] Feels Safe at Home: Yes Childhood Exposure to Second-Hand Smoke: Yes Diet: diabetic, low salt and regular caffeine: Yes (very rare) during the past year weight has: remained stable Dental Care, Regularly: No Physical Activity Frequency: Does not Exercise Seatbelt Use: always Sunscreen Use: No Assistive Devices: None Review of Systems Review of Systems: All systems reviewed & are unremarkable except as noted in HPI & below Physical Exam Constitutional: WD/WN, vitals as above ENMT: external ear and nose normal, oropharynx normal Respiratory: normal respiratory effort, lungs clear to auscultation Cardiovascular: RRR, no murmur, no edema Gastrointestinal (Abdomen): Inspection/Auscultation: abdomen normal to inspection and + abdomen distended Percussion/Palpation: + abdomen tender (epigastric and RUQ), + guarding and abdomen soft; abdomen not rigid Musculoskeletal: no cyanosis or clubbing, extremities motor strength 5/5 Skin: no rashes, warm and dry Neurologic: moves all extremities and awake; not confused Psychiatric: A+Ox3, euthymic affect Results & Data Results & Data Vital Signs (Past 12 Hours) Vital Signs Temp Pulse Resp BP Pulse Ox O2 Del Method 05/15/24 17:58 80 05/15/24 17:06 36.7 C 78 18 176/98 H 95 Room Air Laboratory Results Abnormal lab results 05/15/24 Range/Units 17:17 MPV 9.2 L (9.4-12.4) fL Neut # (Auto) 7.68 H (1.40-6.50) K/uL Lymph # (Auto) 0.59 L (1.20-3.40) K/uL Pratt # (Auto) 1.19 H (0.11-0.59) K/uL Sodium 133 L (136-145) mmol/L Potassium 3.0 L (3.5-5.1) mmol/L Chloride 94 L (98-107) mmol/L BUN 38 H (6-23) mg/dl Creatinine 1.75 H (0.6-1.4) mg/dl BUN/Creatinine Ratio 21.7 H (10-20) Glucose 165 H (70-99(Fasting)) mg/dl Total Bilirubin 2.2 H (0.2-1.0) mg/dl Alkaline Phosphatase 227 H (34-104) U/L Diagnostic Findings XR chest 1V not portable CLINICAL HISTORY: Abdominal Pain TECHNIQUE: An X-ray image of the chest is obtained in AP projection. COMPARISON: XR 04/08/2024 FINDINGS: Pulmonary Parenchyma: A faint opacity is seen along the left lower lung zone silhouetting the left diaphragm, Right mid-zonal small nodule.Stable No evidence of consolidation, collapse. No pulmonary nodules are identified. No evidence of pleural effusion or pleural thickening. Heart and Mediastinum: Heart size and shape are normal. No mediastinal widening or masses. No hilar or mediastinal lymphadenopathy. unfolded aorta. Bony Thorax: The bony thorax appears intact without fractures or deformities. Soft Tissues: Soft tissues overlying the chest wall are unremarkable. Left shoulder arthroplasty and cervical disc cage are noted. Correlate with patient surgical data. Stable. IMPRESSION: A faint opacity is seen along the left lower lung zone silhouetting the left diaphragm. New finding .Recommend clinical correlation and further evaluation if warranted. Medications Administered ER Medications Given: Dilaudid 0.5 mg IV Ondansetron 4 mg IV Zosyn 4.5 g IV Potassium chloride 10 mEq x 2 ECG Rate (beats per minute): 83 Rhythm: normal sinus Findings: + RBBB (Incomplete) Comparison ECG Date: from (May 10, 2024) Change: no significant change Code Status & VTE Plan Code Status All treatments including intubation and ventilation outside of a cardiac arrest. DO NOT RESUSCITATE in the setting of the cardiac arrest. VTE Prophylaxis Plan VTE Prophylaxis will be ordered: Yes PG Care Time/CCT Total # of Minutes Spent Total Time Spent with Patient: Total time spent is greater than 50% in coordination of care (as documented) at patient's floor/unit and/or counseling patient: Coding Level of Care Code 90775 INT INP/OBS CARE MIN Diagnoses Acute cholecystitis K81.0 CAD (coronary artery disease), [place] coronary artery I25.10 Type 2 diabetes mellitus E11.9 (HFpEF) heart failure with preserved ejection fraction I50.33 Heart failure chronicity: acute on chronic Moderate COPD (chronic obstructive pulmonary disease) J44.9 (4) (HFpEF) heart failure with preserved ejection fraction Heart failure chronicity: acute on chronic Qualified Code(s): I50.33 - Acute on chronic diastolic (congestive) heart failure
--- NOTE | 2024-05-15 18:53 | XRay Report ---
EXAM: XR chest 1V not portable CLINICAL HISTORY: Abdominal Pain TECHNIQUE: An X-ray image of the chest is obtained in AP projection. COMPARISON: XR 04/08/2024 FINDINGS: Pulmonary Parenchyma: A faint opacity is seen along the left lower lung zone silhouetting the left diaphragm, Right mid-zonal small nodule.Stable No evidence of consolidation, collapse. No pulmonary nodules are identified. No evidence of pleural effusion or pleural thickening. Heart and Mediastinum: Heart size and shape are normal. No mediastinal widening or masses. No hilar or mediastinal lymphadenopathy. unfolded aorta. Bony Thorax: The bony thorax appears intact without fractures or deformities. Soft Tissues: Soft tissues overlying the chest wall are unremarkable. Left shoulder arthroplasty and cervical disc cage are noted. Correlate with patient surgical data. Stable. IMPRESSION: A faint opacity is seen along the left lower lung zone silhouetting the left diaphragm. New finding .Recommend clinical correlation and further evaluation if warranted. Electronically signed by Elo Brown 05-15-2024 6:53 PM
[2024-05-15] MEDS: POTASSIUM CHLORIDE CRTAB 20 MEQ TABCR PO STA (19:46)
--- NOTE | 2024-05-15 20:08 | Surgery Consultation ---
<Statement entered by Elvia Mcdowell DO - 05/16/24 12:04> This case was discussed with the surgical PA, I agree with the plan. Date of Consultation May 15, 2024 Assessment & Plan (1) Acute cholecystitis: Patient has been admitted on the hospitalist service. Surgical recommendations are as follows: Analgesics should be provided Antiemetics to be provided Patient to be hydrated gently with IV fluids supplementing his potassium Antibiotics in form of Zosyn have been initiated should continue Patient does take antiplatelets in the form of Plavix which should be held if clinically feasible -we will repeat labs in the morning on 05/16/24 The patient will tentatively scheduled for cholecystectomy with Dr. Ramirez on 05/16/2024 Anticipation of potential surgery I discussed directly with the admitting hospitalist and have requested that they make necessary adjustments to the patient's diabetic medication regimen including his insulin pump. I have also requested that they ensure patient is medically optimized and his necessary medications are continued Additional recommendations with forthcoming based on operative findings and his postoperative recovery thereafter History of Present Illness Reason for Consultation: Symptomatic gallstones History of Present Illness This is a 69-year-old male who was recently admitted to [facility] from May 10 of this year until May 13 of this year. The patient was admitted at this time secondary to acute cholecystitis as well as choledocholithiasis. The patient did undergo an ERCP and was stable for discharge home on the above-noted date. The patient does have a significant cardiac history and takes Plavix, and it was felt to be preferable for patient to be off his Plavix for several days prior to entertaining cholecystectomy. The patient notes that he was to see Dr. Ramirez as outpatient for further surgical evaluation. During patient's aforementioned admission he did have labs and imaging which I was able to review. A CT scan of the abdomen pelvis showed the patient had multiple gallstones but no definite signs of cholecystitis. A gallbladder ultrasound showed cholelithiasis with gallbladder distention and wall thickening felt to likely represent acute cholecystitis. Patient also underwent ERCP as noted above. Finally, the patient had a CT scan of the chest that showed bilateral lower lobe bronchial ectasia. The patient's labs on the day of his discharge included a CBC were white blood cell count was normal. His hemoglobin and hematocrit were 13.3 and 40.1. Platelet count was normal. Chemistry profile showed that sodium was 133 and his potassium was 3.3. His BUN and creatinine were 50 and 2.5. LFTs included a total bilirubin of 3.8. His AST was 38 and his ALT was 102 with an alkaline phosphatase of 170. The patient returned to [facility] today secondary to abdominal pain. Patient notes that his abdominal pain from his previous admission never really went away and it gets worse with any oral intake. As such, he has only been able to drink small amounts of broth but even this causes some abdominal pain. He does note that the pain is located in the right upper quadrant. He says he has felt feverish but denies any nausea or vomiting. Patient denies any other radiation of the pain and denies any other modifying factors. The patient does note that he has a significant cardiac history. He has undergone a cardiac catheterization on 10/09/2022. The patient was noted to have nonobstructive coronary artery disease including 50 to 60% stenosis of his first diagonal artery and 30 to 40% early to mid stenosis of the left anterior sending artery with a widely patent mid left anterior sending artery stent. Patient notes he has been doing well since that cardiac catheterization but did have a stress test in July 2023. This stress test was a dobutamine stress echo or p atient was noted to have normal left ventricular systolic function. There is grade 1 diastolic dysfunction. There is no significant aortic stenosis. There is no evidence of inducible ischemia on this study. The patient does note that because of his cardiac disease he does have chronic shortness of breath but feels that this has been stable. He denies any worsening lower extremity edema. He also denies any chest pain with his day-to-day activities. Patient does take Plavix as previously noted but he has not taken this since May 09 in anticipation of gallbladder surgery. Since arrival to the hospital today the patient has had a chest x-ray that showed no evidence of pneumonia, pulmonary edema, or pleural effusions. CBC revealed white blood cell count, hemoglobin, hematocrit, and platelet count were all normal. Chemistry profile showed sodium and potassium are 133 and 3.0. BUN and creatinine were 30 and 1.7. His LFTs showed a total bilirubin of 2.2, AST and ALT which were both normal, and an alkaline phosphatase of 227. His lipase was not elevated. At the time of my interview he was resting comfortably bed he was in no distress. Allergies Allergy/AdvReac Type Severity Reaction Status Date / Time ketorolac [From Toradol] Allergy Severe kidney Verified 04/07/24 13:24 failure NSAIDS (Non-Steroidal Allergy Unknown Unknown Verified 04/07/24 13:24 Anti-Inflamma Pixrcei-CMC-FkP Reductase AdvReac Intermediate Muscle pain Verified 04/07/24 13:24 Inhibitor [Syiszbu-Enj-Vbc Reductase Inhibitor] Home Medications Medication Instructions Recorded Confirmed Type allopurinol 100 mg tablet 200 mg (2 x 100 mg) PO BID #360 06/23/20 05/15/24 Rx tabs lancets 30 gauge #300 ea 05/29/23 05/15/24 Rx isosorbide mononitrate 120 mg 240 mg (2 x 120 mg) PO QAM #200 10/09/23 05/15/24 Rx tablet,extended release 24 hr tabs blood-glucose meter,continuous #1 ea 11/08/23 05/15/24 Rx (Dexcom G7 Money Position Officer) blood-glucose sensor (Dexcom G7 #3 ea 11/08/23 05/15/24 Rx Sensor device) insulin pump cart,automated,BT #10 ea 12/03/23 05/15/24 Rx (Omnipod 5 G6 Pods (Gen 5) subcutaneous cartridge) insulin pump cartridge,automated #1 ea 12/06/23 05/15/24 Rx dose,BT with controller subcutaneous (Omnipod 5 G6 Intro Kit (Gen 5) subcutaneous cartridge with controller) clopidogrel 75 mg tablet 75 mg PO QAM 03/03/24 05/15/24 History furosemide 40 mg tablet 40 mg PO BID 03/12/24 05/15/24 History fluoxetine 60 mg tablet 60 mg PO QAM #90 tabs 04/02/24 05/15/24 Rx insulin syringe-needle U-100 0.5 #200 ea 04/18/24 05/15/24 Rx mL 30 gauge x 1/2" (BD Insulin Syringe Ultra-Fine) insulin aspart U-100 100 unit/mL 100 unit subcut UD 04/21/24 05/15/24 History subcutaneous solution (Novolog U-100 Insulin aspart) metolazone 5 mg tablet 5 mg PO DAILY PRN weight gain #1 04/29/24 05/15/24 Rx tab carvedilol 12.5 mg tablet 25 mg PO BID 04/30/24 05/15/24 History losartan 25 mg tablet 50 mg PO QAM 04/30/24 05/15/24 History potassium chloride 20 mEq 20 meq PO UD 04/30/24 05/15/24 History tablet,extended release OneTouch Verio test strips (blood #300 ea 05/05/24 05/15/24 Rx sugar diagnostic) dapagliflozin propanediol 10 mg 10 mg PO QAM 05/10/24 05/15/24 History tablet (Farxiga) fluticasone fur. 200 mcg-umeclid 1 inh inhalation QAM 05/10/24 05/15/24 History 62.5 mcg-vilant 25 mcg inhalat.powder (Trelegy Ellipta) cholecalciferol (vitamin D3) 1,250 50,000 unit PO .COMPLEX #6 caps 05/14/24 05/15/24 Rx mcg (50,000 unit) capsule cholecalciferol (vitamin D3) 50 4,000 unit PO DAILY #1 cap 05/14/24 05/15/24 Rx mcg (2,000 unit) capsule evolocumab 140 mg/mL subcutaneous 140 mg subcut Q14D #2 mL 05/14/24 05/15/24 Rx pen injector (DogsterathChina-8) Patient History Medical History Obesity Vitamin D deficiency Statin myopathy Sleep apnea Sensorineural hearing loss (SNHL) of both ears Splenomegaly History of pancreatitis History of kidney injury Cervical radiculopathy right C8 Pulmonary nodules Gout Diverticular disease Glaucoma NO MEDICATIONS. "PRE-GLAUMCOMA" Surgical History Fusion of spine C4-7 ACDF S/P trigger finger release right and left hands H/O elbow surgery LEFT S/P Achilles tendon repair LEFT History of esophagogastroduodenoscopy (EGD) History of colonoscopy History of tonsillectomy History of cardiac cath NO STENTS. FOLLOWS WITH DR. PRYOR. S/P wrist surgery H/O cervical spine surgery Family History Grandmother Family history of diabetes mellitus Uncle Family history of diabetes mellitus Father COPD (chronic obstructive pulmonary disease) Lung disease Mother Hypertension Aunt Colorectal cancer Denies family history of Ovarian cancer Prostate cancer Myocardial infarction Breast cancer Social History Smoking Status: Never smoker Tobacco Type: Cigars Age Started Using Tobacco: 20; Cigarettes Per Day: Rare cigar smoker, ~1x month; Second Hand Exposure: Yes; Do You Dip or Chew Tobacco: No; Hx Alcohol Use: No Hx Substance Use: No Preferred Language: Albanian Communication Ability: Effective Visual Impairment: Partially Limited Hearing Ability: Normal Engineering Programmer Required: No Beliefs That Will Affect Care: None marital status: Current Living Situation: Spouse Current Living Situation Comment: home w spouse current occupational status: employed and disabled 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 [employer] Feels Safe at Home: Yes Childhood Exposure to Second-Hand Smoke: Yes Diet: diabetic, low salt and regular caffeine: Yes (very rare) during the past year weight has: remained stable Dental Care, Regularly: No Physical Activity Frequency: Does not Exercise Seatbelt Use: always Sunscreen Use: No Assistive Devices: None Review of Systems Review of Systems: All systems reviewed & are unremarkable except as noted in HPI & below Physical Exam Constitutional: WD/WN, vitals as above Eyes: Wears glasses ENMT: Ears: no hearing impairment and no external ear abnormality Mouth: no oropharynx abnormality Neck: trachea midline Respiratory: normal respiratory effort; no respiratory distress and no labored breathing Cardiovascular: Rate/Rhythm: regular rate and regular rhythm Gastrointestinal (Abdomen): Abdomen has minimal distention. There is no rebound tenderness or guarding but patient has significant tenderness with palpation in the right upper quadrant with a positive Dwyer sign Musculoskeletal: No gross orthopedic abnormalities. No lower extremity edema Skin: no jaundice Neurologic: moves all extremities Psychiatric: A+Ox3, euthymic affect Results & Data Vital Signs (Past 12 Hours) Vital Signs Temp Pulse Pulse Resp BP BP Pulse Ox 05/15/24 19:47 79 18 169/81 H 98 05/15/24 17:58 80 05/15/24 17:06 36.7 C 78 18 176/98 H 95 O2 Del Method 05/15/24 19:47 Room Air 05/15/24 17:58 05/15/24 17:06 Room Air PG Care Time/CCT Total # of Minutes Spent Total Time Spent with Patient: Total time spent is greater than 50% in coordination of care (as documented) at patient's floor/unit and/or counseling patient: Coding Level of Care Code 96784 INT INP/OBS CARE MIN Diagnoses Acute cholecystitis K81.0
[2024-05-15] MEDS ORDERED: GLUCOSE 40% GEL 15 GM TUBE PO PRN (21:37)
[2024-05-15] MEDS ORDERED: GLUCAGON FOR INJ 1 MG VIAL SQ PRN (21:37)
[2024-05-15] MEDS ORDERED: CARBOHYDRATES FOR HYPOGLYCEMIA PO PRN (21:37)
[2024-05-15] MEDS ORDERED: GLUCOSE 10 TAB/TUBE PO PRN (21:37)
[2024-05-15] MEDS ORDERED: ONDANSETRON INJ 2 MG/ML 2 ML VIAL IV PRN (21:37)
[2024-05-15] MEDS ORDERED: DEXTROSE 50% 50 ML SYRINGE IV PRN (21:37)
[2024-05-15] MEDS: LACTATED RINGER'S 1,000 ML IV SCH (22:01)
[2024-05-15] MEDS: carvediloL 25 MG TAB PO SCH (22:21)
[2024-05-15] MEDS: allopurinoL 100 MG TAB PO SCH (22:21)
[2024-05-15] MEDS: LANTUS PER UNIT CHARGE SQ SCH (22:23)
[2024-05-16] MEDS: PIPERACILLIN/TAZOBACTAM 4.5 GM/100 ML BAG IV SCH (00:37)
[2024-05-16] MEDS: INSULIN ASPART PER UNIT CHARGE SC SCH ×2 (00:38→17:56)
[2024-05-16 07:09] LABS: Albumin Globulin Ratio 0.9 (0.9-2); Albumin Level 3.1 gm/dl (3.4-5.0); BUN Creatinine Ratio 19.4 (10-20); Bilirubin,Total 2.1 mg/dl (0.2-1.0); Calcium 8.7 mg/dl (8.6-10.3); Creatinine Clr Calc Pharmacy 38.1 ml/min; Globulin 3.5 gm/dl (2.5-4.0); Potassium 3.4 mmol/L (3.5-5.1); Total Protein 6.6 gm/dl (6.0-8.3)
[2024-05-16 07:20] LABS: INR 1.1 (0.9-1.1); Partial Thromboplastin Ratio 1.4; Partial Thromboplastin Time 37 Seconds (21-31); Prothrombin Time 11.9 Seconds (9.0-12.0)
[2024-05-16] MEDS: POTASSIUM CHLORIDE CRTAB 20 MEQ TABCR PO STA (08:56)
[2024-05-16] MEDS: ISOSORBIDE MONO EXTENDED REL 60 MG TABCR PO SCH (08:58)
[2024-05-16] MEDS ORDERED: LOSARTAN POTASSIUM 50 MG TAB PO SCH (09:00)
[2024-05-16] MEDS: FLUoxetine HCL 20 MG CAP PO SCH (09:00)
[2024-05-16] MEDS ORDERED: NON-FORMULARY MEDICATION (Fluticasone-Umeclidin-Vilanter [Trelegy Ellipta] 200-62.5-25 mcg INH SCH (09:00)
[2024-05-16] MEDS: UMECLIDINIUM/VILANTEROL 62.5/25MCG 7 PUFFS/INHALER INH SCH (09:03)
[2024-05-16] MEDS: FLUTICASONE FUROATE 200MCG 14 PUFFS/INHALER INH SCH (09:03)
--- NOTE | 2024-05-16 10:51 | Surgery Progress Note ---
Date of Service May 16, 2024 Assessment & Plan (1) Acute cholecystitis: Plan: Proceed with laparoscopic cholecystectomy, possible open today Consent was obtained, risks discussed including bleeding, infection, bile leak, ductal injury Admission and Anticipated Discharge Date Admission Date: May 15, 2024 Subjective Patient seen and examined. Still with right upper quadrant abdominal pain. Denies any nausea or vomiting. Has been off Plavix for 6 days. Afebrile. Review of Systems Constitutional: no fever and no chills Cardiovascular: no chest pain and no dyspnea Gastrointestinal: + abdominal pain; no nausea, no vomiting , no constipation and no constant urge to pass stools Genitourinary: no dysuria or no difficulty urinating Musculoskeletal: no back pain and no neck pain Integumentary: no acne, no changing lesions and no skin ulcer Neurologic: no headache(s) and no confusion Psychiatric: no behavioral changes and no depression Physical Exam Constitutional: WD/WN, vitals as above Respiratory: normal respiratory effort, lungs clear to auscultation Cardiovascular: RRR, no murmur, no edema Gastrointestinal (Abdomen): Inspection/Auscultation: abdomen normal to inspection; abdomen not distended Percussion/Palpation: + abdomen tender (Right upper quadrant) and abdomen soft; no guarding Neurologic: PERRL, EOMI, accommodation nl, no face palsy, no dysarthria Psychiatric: A+Ox3, euthymic affect Results & Data Vital Signs (Past 12 Hours) Vital Signs Temp Pulse Pulse Resp BP Pulse Ox O2 Del Method 05/16/24 08:54 73 145/83 H 05/16/24 07:40 36.6 C 70 16 156/91 H 96 Room Air 05/16/24 06:33 36.8 C 70 16 139/81 95 Room Air 05/15/24 23:55 83 165/97 H PG Care Time/CCT Total # of Minutes Spent Total Time Spent with Patient: Total time spent is greater than 50% in coordination of care (as documented) at patient's floor/unit and/or counseling patient: Coding Level of Care Code 69902 SUB INP/OBS CARE 2/35MIN Diagnoses Acute cholecystitis K81.0
[2024-05-16 12:20] LABS: Appearance Urine Clear (Clear); Bacteria Urine Automated None Seen (None Seen); Bilirubin Urine Negative (Negative); Blood Urine Trace (Negative); Color Urine Dark Yellow; Epithelial Cell Urine Auto 0-2 /hpf (0-2); Glucose Urine UA Trace (Negative); Ketones Urine Negative (Negative); Leukocyte Esterase Urine Negative (Negative); Nitrite Urine Negative (Negative); Protein Urine 2+ (Negative); Specific Gravity Urine 1.018 (1.000-1.030); Urobilinogen Urine Negative (Negative); WBC Urine Automated 0-5 /hpf (0-5)
[2024-05-16] MEDS ORDERED: DEXAMETHASONE SOD INJ 4 MG/ML VIAL ONE (12:30)
[2024-05-16] MEDS ORDERED: LIDOCAINE 2% 2 ML VIAL/AMP(20MG/ML) INFIL ONE (12:30)
[2024-05-16] MEDS ORDERED: ROCURONIUM BROMIDE 10 MG/ML 5 ML VIAL IV ONE (12:30)
[2024-05-16] MEDS ORDERED: PROPOFOL IV EMULSION 10 MG/ML 20 ML VIAL IV ONE (12:30)
[2024-05-16] MEDS ORDERED: ONDANSETRON INJ 2 MG/ML 2 ML VIAL ONE (12:30)
[2024-05-16] MEDS ORDERED: fentaNYL citrate PF 100 MCG/2 ML VIAL ONE (12:30)
[2024-05-16] MEDS ORDERED: HYDROmorphone INJ 1 MG/ML SYRINGE IV PRN (12:50)
[2024-05-16] MEDS ORDERED: fentaNYL citrate PF 100 MCG/2 ML VIAL IV PRN (12:50)
[2024-05-16] MEDS ORDERED: ONDANSETRON INJ 2 MG/ML 2 ML VIAL IV PRN (12:50)
[2024-05-16] MEDS ORDERED: ATROPINE SULFATE 0.1 MG/ML 10ML SYR IV PRN (12:50)
[2024-05-16] MEDS ORDERED: ePHEDrine sulfate 50 MG/ML AMP IV PRN (12:50)
--- NOTE | 2024-05-16 12:52 | Anesthesiology Consultation ---
Date of Service May 16, 2024 Assessment & Plan ASA ASA4 Proposed Anesthesia Anesthesia Type: General Risk / Benefits Reviewed With: PT / POA / Parent / Guardian, Accepts Plan and Informed Consent Obtained History Surgery Operation Date: 05/16/24 08:00 Proposed Procedures p Laparoscopic Cholecystectomy - Darwin Redmond, Height/Weight Height: 5 ft 4 in Weight: 95.2 kg Allergies Allergy/AdvReac Type Severity Reaction Status Date / Time ketorolac [From Toradol] Allergy Severe kidney Verified 04/07/24 13:24 failure NSAIDS (Non-Steroidal Allergy Unknown Unknown Verified 04/07/24 13:24 Anti-Inflamma Opvnruu-RXZ-CbZ Reductase AdvReac Intermediate Muscle pain Verified 04/07/24 13:24 Inhibitor [Whqacdf-Lht-Hqv Reductase Inhibitor] Medications Home Medications Medication Instructions Recorded Confirmed Last Taken allopurinol 100 mg tablet 200 mg (2 x 100 mg) PO BID #360 06/23/20 05/15/24 08/04/23 tabs lancets 30 gauge #300 ea 05/29/23 05/15/24 Unknown isosorbide mononitrate 120 mg 240 mg (2 x 120 mg) PO QAM #200 10/09/23 05/15/24 Unknown tablet,extended release 24 hr tabs blood-glucose meter,continuous #1 ea 11/08/23 05/15/24 Unknown (Dexcom G7 Medical Pathologist) blood-glucose sensor (Dexcom G7 #3 ea 11/08/23 05/15/24 Unknown Sensor device) insulin pump cart,automated,BT #10 ea 12/03/23 05/15/24 Unknown (Omnipod 5 G6 Pods (Gen 5) subcutaneous cartridge) insulin pump cartridge,automated #1 ea 12/06/23 05/15/24 Unknown dose,BT with controller subcutaneous (Omnipod 5 G6 Intro Kit (Gen 5) subcutaneous cartridge with controller) clopidogrel 75 mg tablet 75 mg PO QAM 03/03/24 05/15/24 Unknown furosemide 40 mg tablet 40 mg PO BID 03/12/24 05/15/24 Unknown fluoxetine 60 mg tablet 60 mg PO QAM #90 tabs 04/02/24 05/15/24 Unknown insulin syringe-needle U-100 0.5 #200 ea 04/18/24 05/15/24 Unknown mL 30 gauge x 1/2" (BD Insulin Syringe Ultra-Fine) insulin aspart U-100 100 unit/mL 100 unit subcut UD 04/21/24 05/15/24 Unknown subcutaneous solution (Novolog U-100 Insulin aspart) metolazone 5 mg tablet 5 mg PO DAILY PRN weight gain #1 04/29/24 05/15/24 Unknown tab carvedilol 12.5 mg tablet 25 mg PO BID 04/30/24 05/15/24 Unknown losartan 25 mg tablet 50 mg PO QAM 04/30/24 05/15/24 Unknown potassium chloride 20 mEq 20 meq PO UD 04/30/24 05/15/24 Unknown tablet,extended release OneTouch Verio test strips (blood #300 ea 05/05/24 05/15/24 Unknown sugar diagnostic) dapagliflozin propanediol 10 mg 10 mg PO QAM 05/10/24 05/15/24 Unknown tablet (Farxiga) fluticasone fur. 200 mcg-umeclid 1 inh inhalation QAM 05/10/24 05/15/24 Unknown 62.5 mcg-vilant 25 mcg inhalat.powder (Trelegy Ellipta) cholecalciferol (vitamin D3) 1,250 50,000 unit PO .COMPLEX #6 caps 05/14/24 05/15/24 Unknown mcg (50,000 unit) capsule cholecalciferol (vitamin D3) 50 4,000 unit PO DAILY #1 cap 05/14/24 05/15/24 Unknown mcg (2,000 unit) capsule evolocumab 140 mg/mL subcutaneous 140 mg subcut Q14D #2 mL 05/14/24 05/15/24 Unknown pen injector (Mary Escobar) Active Medications Generic Name Dose Route Start Last Admin Trade Name Freq PRN Reason Stop Dose Admin Allopurinol 200 mg 05/15/24 21:37 05/16/24 08:59 Allopurinol 100 Mg Tab PO 06/14/24 21:36 Not Given BID ANGEL Carvedilol 25 mg 05/15/24 21:37 05/16/24 08:59 Carvedilol 25 Mg Tab PO 06/14/24 21:36 25 mg BID ANGEL Administration Fluoxetine HCl 60 mg 05/16/24 09:00 05/16/24 09:00 Fluoxetine Hcl 20 Mg Cap PO 06/15/24 08:59 Not Given QAM ANGEL Fluticasone Furoate 1 puffs 05/16/24 09:00 05/16/24 09:03 Fluticasone Furoate 200mcg 14 Puffs/Inhaler INH 06/15/24 08:59 1 puffs DAILY ANGEL Administration Hydromorphone HCl 0.5 mg 05/15/24 21:37 05/16/24 07:48 Hydromorphone Inj 0.5 Mg/0.5 Ml Syr IV 05/29/24 21:36 0.5 mg Q3H PRN Administration Pain (6,7,8,9,10) Piperacillin Sod/Tazobactam Sod 4.5 gm in 100 mls @ 25 mls/hr 05/16/24 00:00 05/16/24 12:11 Zosyn IV 05/26/24 00:00 Infused Q8H ANGEL Infusion Protocol Lactated Ringer's 1,000 mls @ 100 mls/hr 05/15/24 21:37 05/16/24 08:26 Lr IV 05/16/24 17:36 100 mls/hr .Q10H ANGEL Administration Insulin Aspart 0 units 05/16/24 00:00 05/16/24 12:11 Insulin Aspart Per Unit Charge SC 06/15/24 00:00 Not Given Q6 ANGEL Insulin Glargine 15 units 05/15/24 21:37 05/16/24 09:28 Lantus Per Unit Charge SQ 06/14/24 21:36 15 units BID ANGEL Administration Isosorbide Mononitrate 240 mg 05/16/24 09:00 05/16/24 08:58 Isosorbide [place] Extended Rel 60 Mg Tabcr PO 06/15/24 08:59 240 mg QAM ANGEL Administration Umeclidinium/Vilanterol 1 puffs 05/16/24 09:00 05/16/24 09:03 Umeclidinium/Vilanterol 62.5/25mcg 7 Puffs/Inhaler INH 06/15/24 08:59 1 puffs DAILY ANGEL Administration NPO Date Last Intake of Fluids: 05/14/24 Time Last Intake of Fluids: 16:00 Date Last Intake of Solids: 05/14/24 Time Last Intake of Solids: 16:00 Past Medical History Medical History Obesity Vitamin D deficiency Statin myopathy Sleep apnea Sensorineural hearing loss (SNHL) of both ears Splenomegaly History of pancreatitis History of kidney injury Cervical radiculopathy right C8 Pulmonary nodules Gout Diverticular disease Glaucoma NO MEDICATIONS. "PRE-GLAUMCOMA" Exercise / Class Metabolic Activity II 4-5 Yardwork/Stairs/Walk up hill Past Family History Family History Grandmother Family history of diabetes mellitus Uncle Family history of diabetes mellitus Father COPD (chronic obstructive pulmonary disease) Lung disease Mother Hypertension Aunt Colorectal cancer Denies family history of Ovarian cancer Prostate cancer Myocardial infarction Breast cancer Past Surgical History Surgical History Fusion of spine C4-7 ACDF S/P trigger finger release right and left hands H/O elbow surgery LEFT S/P Achilles tendon repair LEFT History of esophagogastroduodenoscopy (EGD) History of colonoscopy History of tonsillectomy History of cardiac cath NO STENTS. FOLLOWS WITH DR. PRYOR. S/P wrist surgery H/O cervical spine surgery Past Anesthesia History No Hx of Anesthesia Complications and No Family Hx of Anesthesia Complications History of PONV No Hx of PONV and No Hx of Motion Sickness Social History Smoking Status: Never smoker tobacco type: cigars Smoking cigarettes per day: Rare cigar smoker, ~1x month Do You Dip or Chew Tobacco: No Hx Alcohol Use: No Alcohol type: wine alcohol intake frequency: holidays/special occasions only Hx Substance Use: No substance use type: does not use Review of Systems denies fever/cough/ colds/ chest pain/ SOB/ MARISA denies MARISA Physical Exam Vital Signs Last Vital Signs Temp 36.7 C 05/16/24 12:07 Pulse 72 05/16/24 12:07 Resp 20 05/16/24 12:07 BP 117/60 05/16/24 12:07 Pulse Ox 94 05/16/24 12:07 O2 Del Method Room Air 05/16/24 12:07 ENMT Mouth: + poor dentition (many loose teeth); no TMJ abnormality and no dentition abnormality Thyromental Distance: > or= 3.5 Finger Breadths Mallampati Class: IV Neck neck extension not limited Respiratory normal respiratory effort; no respiratory distress Auscultation: lungs clear to auscultation bilaterally Cardiovascular Rate/Rhythm: regular rate and regular rhythm Neurologic moves all extremities Psychiatric Orientation: alert and oriented x 3 Testing Laboratory Results 05/15/24 17:17 05/16/24 06:35 PT 11.9 Seconds (9.0-12.0) 05/16/24 06:35 INR 1.1 (0.9-1.1) 05/16/24 06:35 APTT 37 Seconds (21-31) H 05/16/24 06:35 Urine Color Dark Yellow 05/16/24 11:20 Urine Appearance Clear (Clear) 05/16/24 11:20 Urine pH 5.0 (4.5-7.5) 05/16/24 11:20 Ur Specific [place] 1.018 (1.000-1.030) 05/16/24 11:20 Urine Protein 2+ (Negative) H 05/16/24 11:20 Urine Glucose (UA) Trace (Negative) H 05/16/24 11:20 Urine Ketones Negative (Negative) 05/16/24 11:20 Urine Nitrite Negative (Negative) 05/16/24 11:20 Ur Leukocyte Esterase Negative (Negative) 05/16/24 11:20 Urine WBC (Auto) 0-5 /hpf (0-5) 05/16/24 11:20 Urine RBC (Auto) 11-20 /hpf (0-2) H 05/16/24 11:20 U Hyaline Cast (Auto) 3-5 /lpf (0-2) H 05/16/24 11:20 U Epithel Cells (Auto) 0-2 /hpf (0-2) 05/16/24 11:20 Urine Bacteria (Auto) None Seen (None Seen) 05/16/24 11:20 05/16/24 05/16/24 05/16/24 11:42 09:12 06:13 POC Glucose 167 H 148 H 129 H
--- NOTE | 2024-05-16 12:53 | Electrocardiogram Report ---
Test Reason : Blood Pressure : */* mmHG Vent. Rate : 83 BPM Atrial Rate : 83 BPM P-R Int : 164 ms QRS Dur : 116 ms QT Int : 398 ms P-R-T Axes : 21 58 48 degrees QTcB Int : 467 ms Normal sinus rhythm Incomplete right bundle branch block Borderline ECG When compared with ECG of 10-May-2024 06:46, No significant change was found Confirmed by Narciso Hurtado ([id number]) on 05/16/2024 12:53:11 PM Referred By: Elvia Mcdowell Confirmed By: Narciso Hurtado
--- NOTE | 2024-05-16 13:49 | Hospitalist Progress Note ---
Date of Service May 16, 2024 Assessment & Plan (1) Acute cholecystitis: Plan: Suspected previous admission but awaiting to be off clopidogrel for 5 days which he now has held IV Zosyn as requested by general surgery NPO, general surgery consulted, for OR today for lap jacky Pain control ordered with IV Dilaudid Patient has coronary artery disease with stable shortness of breath and no chest pain. Stent placed in 2022 with follow-up catheterization later that year in September showing nonobstructive coronary artery disease. Okay to hold clopidogrel perioperatively however should continue on aspirin which she is being noncompliant taking as soon as possible postoperatively. She will remain on beta-ponce perioperatively (do not hold prior to operation). We also recommend isosorbide mononitrate is given the day before his operation, losartan and Lasix can be held and restarted postoperatively. He is currently stable from a congestive heart failure standpoint on Lasix 40 mg p.o. BID. Renal function appears improving from prior hospitalization when he was likely IV diuresed. While NPO will place on lactated Ringer's at 100 mL/h for maximum 2 L. Monitor overnight for worsening respiratory status. Patient has mild hypokalemia, once this is replete we will repeat labs tomorrow as long as no worsening respiratory status overnight he will be medically optimized for surgery. (2) CAD (coronary artery disease), [place] coronary artery: Plan: Patient is supposed to be taking aspirin but reportedly not reliably taking this, this should be restarted post operatively Holding clopidogrel for his operation Continue carvedilol, isosorbide mononitrate, intolerant to statins, losartan as above (3) Type 2 diabetes mellitus: Plan: Patient has an insulin pump although has run out of insulin at this time Basal dosing at 2.7 units/h = 65 units per day, given he is n.p.o. we will half this dose and make it BID at 15 units Continue his usual bolus dosing with NovoLog: --Goal BSG Range: Low 110 mg/dL, High 140 mg/dL --Correction Factor: 27 mg/dL/unit --Carbohydrate ratio = 7 g/unit --BSGs ACHS if eating, q6h if npo (4) (HFpEF) heart failure with preserved ejection fraction: Plan: Currently appears euvolemic. Gentle IV fluids preoperatively while n.p.o. Restart Lasix at his home dose 40 mg p.o. BID postoperatively. (5) Moderate COPD (chronic obstructive pulmonary disease): Plan: No acute exacerbation Continue his routine maintenance inhaler. Plan VTE prophylaxis - deferred chemical pre-operatively Diet - NPO Plan for OR today for lap jacky. Early ambulation and dietary advancement as tolerated. Anticipate overnight stay with likely home tomorrow if without any postop complications. Plan d/w Dr. Lane who is in agreement. Admission and Anticipated Discharge Date Admission Date: May 15, 2024 Jake Veloz was seen this AM on daily rounds. He is resting comfortably in bed. He is awaiting his lap cholecystectomy surgery for acute cholecystitis. Pain currently controlled. No active n/v. Denies fever/chils. Review of Systems 2 Review of Systems: All systems reviewed and are unremarkable except as noted in HPI and below. Denies fever, chills, fatigue, headache, nasal congestion, sore throat, cough, chest pain, shortness of breath, palpitations, orthopnea, PND, n/v/d, constipation, dysuria, hematuria, frequency, back pain, joint pain or swelling, easy bruising or bleeding, skin lesions or rashes. Physical Exam 2 Physical Exam: GENERAL: 69 yo obese WM. A&Ox4. No distress. LUNGS: Clear to auscultation bilaterally. No W/R/R. CARDIOVASCULAR: Regular rate and rhythm. ABDOMEN: Soft, obese. Minimal TTP in RUQ. Non-distended. Bowel sounds normoactive x 4 quad. EXTREMITIES: No edema. Non-tender. Peripheral pulses +2/4. SKIN: Warm, dry, intact. No rashes or lesions. Results & Data Results & Data Vital Signs (Past 12 Hours) Vital Signs Temp Pulse Pulse Resp BP Pulse Ox O2 Del Method 05/16/24 12:07 36.7 C 72 20 117/60 94 Room Air 05/16/24 08:54 73 145/83 H 05/16/24 07:40 36.6 C 70 16 156/91 H 96 Room Air 05/16/24 06:33 36.8 C 70 16 139/81 95 Room Air Laboratory Results 05/15/24 17:17 05/16/24 06:35 PG Care Time/CCT Total # of Minutes Spent Total Time Spent with Patient: Total time spent is greater than 50% in coordination of care (as documented) at patient's floor/unit and/or counseling patient: 36 minutes Coding Level of Care Code 15824 SUB INP/OBS CARE 2/35MIN Diagnoses Acute cholecystitis K81.0 CAD (coronary artery disease), [place] coronary artery I25.10 Type 2 diabetes mellitus E11.9 (HFpEF) heart failure with preserved ejection fraction I50.33 Heart failure chronicity: acute on chronic Moderate COPD (chronic obstructive pulmonary disease) J44.9 (4) (HFpEF) heart failure with preserved ejection fraction Heart failure chronicity: acute on chronic Qualified Code(s): I50.33 - Acute on chronic diastolic (congestive) heart failure
[2024-05-16] MEDS ORDERED: ePHEDrine sulfate 50 MG/5 ML SYR ONE (14:10)
[2024-05-16] MEDS ORDERED: PHENYLEPHRINE 100MCG/ML 5ML SYR ONE (14:10)
[2024-05-16] MEDS ORDERED: KETAMINE HCL 10MG/ML SYR ONE (14:14)
[2024-05-16] MEDS ORDERED: HYDROmorphone INJ 2 MG/ML SYR/VIAL ONE (14:15)
[2024-05-16] MEDS ORDERED: SUGAMMADEX SODIUM 200 MG/2 ML VIAL IV ONE (14:52)
[2024-05-16] MEDS: BUPIVACAINE/EPINEPHRINE 0.25% 1:200,000 30 ML VIAL ONE (15:02)
[2024-05-16] MEDS: FLOSEAL HEMOSTATIC MATRIX 10ML TOP ONE (15:02)
--- NOTE | 2024-05-16 15:11 | Post Operative Brief Note ---
PG Immediate Post Op with CF Date of Surgery May 16, 2024 Pre & Post Diagnosis Operation Date: 05/16/24 08:00 Pre-Op Diagnosis: Acute cholecystitis Post-Op Diagnosis: Acute gangrenous cholecystitis I identified the patient and participated in the time-out.: Yes Procedure Operation Date: 05/16/24 08:00 Actual Procedures p Laparoscopic Cholecystectomy(Not Applicable) - Darwin Redmond DO Surgeon Darwin Redmond DO Services Program Manager Noemy Bagley PA-C Estimated Blood Loss 100 Findings See Below Gangrenous/necrotic gallbladder Specimens Specimen Description: A. Gallbladder and contents Drains Darwin Drain (19 Fr Darwin.) and Fitz-Clark Drain Anesthesia Type General Complications none Disposition Disposition: Recovery Room
--- NOTE | 2024-05-16 15:17 | Operative Report ---
PG Post Operative Report Pre & Post Diagnosis Operation Date: 05/16/24 08:00 Pre-Op Diagnosis: Acute cholecystitis Post-Op Diagnosis: Acute gangrenous cholecystitis I identified the patient and participated in the time-out.: Yes Procedure Operation Date: 05/16/24 08:00 Actual Procedures p Laparoscopic Cholecystectomy(Not Applicable) - Darwin Redmond DO Surgeon Darwin Redmond DO Auto Design Checker Noemy Bagley PA-C Estimated Blood Loss 100 Findings See Below Gangrenous/necrotic gallbladder Fluids see anesthesia record Specimens Gallbladder to pathology Drains 19 [place] Darwin drain in the right upper quadrant Anesthesia Type General Complications none Disposition Disposition: Recovery Room Indications 69-year-old male with acute cholecystitis Description of Procedure The patient was brought to the operating room and placed in the supine position with both arms extended. At this time he underwent general endotracheal anesthesia without any problems. He was given appropriate pre-operative antibiotics. His abdomen prepped and draped in the usual sterile fashion. A timeout was called, the procedure was verified as Laparoscopic cholecystectomy, possible open, possible intra-operative cholangiogram. Surgical, nursing and anesthesia teams agreed and the procedure was begun. After injection of 0.25% Marcaine with epinephrine, a supraumbilical vertical incision was made and carried down to the fascia using S-retractors. The abdominal wall was then elevated with towel clamps and abdomen entered using the Veress needle confirming position using the saline drop test. Pneumoperitoneum was established. 5mm trocar was placed. Laparoscope was introduced. No injury from entry into the abdomen was visualized after inspection of the abdomen. Three further ports were placed under direct visualization. One 11mm in the subxiphoid region and two 5mm in the RUQ. At this time the abdomen was inspected and the gallbladder identified. The omentum was taken off of the gallbladder using blunt dissection as it had formed a rind around the gallb ladder. The gallbladder fundus was grasped and retracted cephalad. The gallbladder itself was gangrenous and had areas of necrosis. We did decompress the gallbladder using a needle in order to make it easier to manipulate. The gallbladder infundibulum was then grasped and retracted laterally. The cystic duct and cystic artery were then identified and skeletonized. They were both then clipped twice proximally and once distally and then divided using scissors. The gallbladder was then taken off of the liver bed using electrocautery and placed in an endocatch bag and removed from the subxiphoid port. 10 mL of Floseal hemostatic agent was placed in the gallbladder fossa. The liver bed was then inspected and no bile leak or bleeding was evident. A 19 [place] Darwin drain was introduced through the subxiphoid port and brought out through the right lateral port. This was placed in the gallbladder fossa and attached to the abdominal wall using a 2-0 nylon suture. The subxiphoid port was then closed using 0-Vicryl using the suture passer. The trocars were then removed under direct visualization and no bleeding was present. Abdomen was desufflated. The skin was then closed using 4-0 Monocryl in a subcuticular fashion. Surgical glue was applied. Needle and sponge counts were correct x 2. At this time the patient was awoken from anesthesia and extubated having remained stable throughout the entire case. The patient was then transported to PACU in stable condition. The physician assistant activities director was present and scrubbed for the entire case. She was essential in positioning, prepping and draping the patient, retraction exposure, driving the laparoscope, closure of the incisions and placement of the dressings. I attest to the content of the Intraoperative Record and any orders documented therein. Any exceptions are noted below.
--- NOTE | 2024-05-16 16:11 | Anesthesiology Progress Note ---
Date of Service May 16, 2024 Anesthesia Post Procedure Vital Signs Vital Signs: Temp Pulse Pulse Pulse Pulse Resp BP 05/16/24 16:05 80 16 05/16/24 15:55 78 19 05/16/24 15:45 80 15 05/16/24 15:35 79 15 05/16/24 15:25 77 19 05/16/24 15:16 36.7 C 79 16 05/16/24 12:07 36.7 C 72 20 05/16/24 08:54 73 05/16/24 07:40 36.6 C 70 16 05/16/24 06:33 36.8 C 70 16 05/15/24 23:55 83 05/15/24 21:45 36.7 C 78 21 05/15/24 21:13 74 18 148/82 H 05/15/24 19:47 79 18 05/15/24 17:58 80 05/15/24 17:06 36.7 C 78 18 176/98 H BP BP Pulse Ox O2 Del Method O2 Flow Rate 05/16/24 16:05 126/70 93 Room Air 0 05/16/24 15:55 139/76 92 Room Air 0 05/16/24 15:45 143/67 H 93 Room Air 0 05/16/24 15:35 111/66 92 Oxymask 8 05/16/24 15:25 131/67 100 Oxymask 8 05/16/24 15:16 142/68 H 93 Oxymask 8 05/16/24 12:07 117/60 94 Room Air 05/16/24 08:54 145/83 H 05/16/24 07:40 156/91 H 96 Room Air 05/16/24 06:33 139/81 95 Room Air 05/15/24 23:55 165/97 H 05/15/24 21:45 171/97 H 97 Room Air 05/15/24 21:13 98 Room Air 05/15/24 19:47 169/81 H 98 Room Air 05/15/24 17:58 05/15/24 17:06 95 Room Air Pain Intensity Abdomen: Pain Intensity: 8 Right Abdomen: Pain Intensity: 2 Transfer of Care Handoff Completed per policy Notes Mental Status: alert / awake / arousable Patient Amnestic to Procedure: Yes Nausea / Vomiting: adequately controlled Pain: adequately controlled Airway Patency, RR, SpO2: stable & adequate BP & HR: stable & adequate Hydration State: stable & adequate Anesthetic Complications: no major complications apparent
[2024-05-16] MEDS ORDERED: Nursing to Pharmacy Communication SCH (17:00)
[2024-05-16] MEDS: FUROSEMIDE 40 MG TAB PO SCH (18:29)
[2024-05-16] MEDS: oxyCODONE HCL IR 5 MG TAB (IMMEDIATE RELEASE) PO PRN (20:03)
[2024-05-16] MEDS: HYDROmorphone INJ 0.5 MG/0.5 ML SYR IV PRN (23:31)
--- NOTE | 2024-05-17 06:10 | Surgery Progress Note ---
Date of Service May 17, 2024 Assessment & Plan (1) Acute cholecystitis: Plan: Status post laparoscopic cholecystectomy on 05/16/2024 (postop day #1) Continue clears for the present time with consideration of advancing diet later today Continue analgesics as needed Continue antiemetics as needed Continue antibiotics in the form of Zosyn while hospitalized Hold antiplatelets until certain hemoglobin and hematocrit is stable postoperatively Continue YOU drain to self suction Encourage mobilization/ambulation Encourage use of incentive spirometer Check a.m. labs when available Use SCDs for DVT prevention; would not add chemical means of DVT prophylaxis until certain H&H is stable Admission and Anticipated Discharge Date Admission Date: May 15, 2024 Supervising Physician Co-Signing Physician Notes Postop day 1 laparoscopic cholecystectomy for gangrenous gallbladder Keep drain in place Advance his diet as tolerated Keep today for IV antibiotics Will plan on tentative discharge tomorrow with the drain in place Subjective Patient is currently resting comfortably in bed. He notes that since his surgery he has ambulated a small amount. He denies any nausea or vomiting and is tolerating clear liquids thus far. He also notes that he has had a bowel movement since his surgery. He reports he is somewhat sore in the abdomen but this is markedly improved from what was noted at time of admission. He denies any fevers, shakes, or chills. Physical Exam Gastrointestinal (Abdomen): Abdomen is minimally distended. Patient has appropriate tenderness near his surgical incisions. Surgical incisions are covered with dressings and appear clean, dry, and intact. YOU drain is in place draining bloody drainage and has drained approximately 130 cc since surgery. Results & Data Vital Signs (Past 12 Hours) Vital Signs Temp Pulse Resp BP Pulse Ox O2 Del Method O2 Flow Rate 05/17/24 03:57 36.6 C 73 18 135/73 94 Room Air 05/16/24 23:25 36.3 C L 71 20 123/70 98 Room Air 05/16/24 19:10 36.6 C 86 20 117/70 97 Room Air 05/16/24 18:40 36.9 C 83 16 122/72 97 Nasal Cannula 2 PG Care Time/CCT Total # of Minutes Spent Total Time Spent with Patient: Total time spent is greater than 50% in coordination of care (as documented) at patient's floor/unit and/or counseling patient: Coding Level of Care Code 84666 Post Operative Follow-Up Diagnoses Acute cholecystitis K81.0
[2024-05-17 07:00] LABS: Hemoglobin 12.7 g/dl (14.0-18.0); Immature Granulocytes # (auto) 0.08 K/uL (0.01-0.20); Immature Granulocytes % (auto) 1.2 %; Lymphocytes % (auto) 4.4 %; Mean Corpuscular Hemoglobin 28.3 pg (25.0-34.0); Mean Corpuscular Hgb Conc 33.4 g/dL (32.0-36.0); Mean Corpuscular Volume 84.8 fL (80.0-100.0); Mean Platelet Volume 9.9 fL (9.4-12.4); Monocytes # (auto) 0.71 K/uL (0.11-0.59); Monocytes % (auto) 10.3 %; Neutrophils # (auto) 5.79 K/uL (1.40-6.50); Neutrophils % (auto) 84.1 %; Platelet Count 202 K/uL (130-400); RDW Coefficient of Variation 13.5 % (11.5-14.5); RDW Standard Deviation 42.1 fL (36.4-46.3); Red Blood Count 4.48 M/uL (4.70-6.10); White Blood Count 6.88 K/ul (4.8-10.8)
[2024-05-17 07:19] LABS: Albumin Globulin Ratio 0.9 (0.9-2); Albumin Level 3.1 gm/dl (3.4-5.0); BUN Creatinine Ratio 20.9 (10-20); Bilirubin Direct 0.7 mg/dl (0-0.2); Bilirubin,Total 1.8 mg/dl (0.2-1.0); Calcium 8.5 mg/dl (8.6-10.3); Creatinine Clr Calc Pharmacy 31.2 ml/min; Globulin 3.4 gm/dl (2.5-4.0); Potassium 3.8 mmol/L (3.5-5.1); Total Protein 6.5 gm/dl (6.0-8.3)
--- NOTE | 2024-05-17 23:38 | Hospitalist Progress Note ---
Date of Service May 17, 2024 Assessment & Plan (1) Acute cholecystitis: Plan: Suspected previous admission but awaiting to be off clopidogrel for 5 days which he now has held IV Zosyn as requested by general surgery NPO, general surgery consulted, for OR today for lap jacky Pain control ordered with IV Dilaudid Patient has coronary artery disease with stable shortness of breath and no chest pain. Stent placed in 2022 with follow-up catheterization later that year in September showing nonobstructive coronary artery disease. Oxygen level has been stable. Acute blood loss anemia: Continue to hold clopidogrel postoperatively due to drop of hemoglobin. Hemoglobin dropped 3 point. (2) CAD (coronary artery disease), [place] coronary artery: Plan: Patient is supposed to be taking aspirin but reportedly not reliably taking this, this should be restarted post operatively Holding clopidogrel for his operation Continue carvedilol, isosorbide mononitrate, intolerant to statins, losartan as above (3) Type 2 diabetes mellitus: Plan: Patient has an insulin pump although has run out of insulin at this time Basal dosing at 2.7 units/h = 65 units per day, given he is n.p.o. we will half this dose and make it BID at 15 units Continue his usual bolus dosing with NovoLog: --Goal BSG Range: Low 110 mg/dL, High 140 mg/dL --Correction Factor: 27 mg/dL/unit --Carbohydrate ratio = 7 g/unit --BSGs ACHS if eating, q6h if npo (4) (HFpEF) heart failure with preserved ejection fraction: Plan: Currently appears euvolemic. Restart Lasix at his home dose 40 mg p.o. BID postoperatively. (5) Moderate COPD (chronic obstructive pulmonary disease): Plan: No acute exacerbation Continue his routine maintenance inhaler. Plan VTE prophylaxis - deferred chemical pre-operatively Diet -low fat diet Admission and Anticipated Discharge Date Admission Date: May 15, 2024 Subjective Patient reports no new symptoms. He tolerated his lunch. Physical Exam Physical Exam: GENERAL: 69 yo obese WM. A&Ox4. No distress. LUNGS: Clear to auscultation bilaterally. No W/R/R. CARDIOVASCULAR: Regular rate and rhythm. ABDOMEN: Soft, obese. Non-distended. Bowel sounds normoactive x 4 quad. EXTREMITIES: No edema. Non-tender. Peripheral pulses +2/4. SKIN: Warm, dry, intact. No rashes or lesions. Results & Data Results & Data Vital Signs (Past 12 Hours) Vital Signs Temp Pulse Resp BP Pulse Ox O2 Del Method 05/17/24 21:14 36.5 C 63 16 137/85 94 Room Air 05/17/24 20:00 36.5 C 64 18 124/75 97 Room Air 05/17/24 16:49 36.4 C L 68 18 145/66 H 94 Room Air PG Care Time/CCT Total # of Minutes Spent Total Time Spent with Patient: Total time spent is greater than 50% in coordination of care (as documented) at patient's floor/unit and/or counseling patient: Coding Level of Care Code 97095 SUB INP/OBS CARE 350MIN Diagnoses Acute cholecystitis K81.0 CAD (coronary artery disease), [place] coronary artery I25.10 Type 2 diabetes mellitus E11.9 (HFpEF) heart failure with preserved ejection fraction I50.33 Heart failure chronicity: acute on chronic Moderate COPD (chronic obstructive pulmonary disease) J44.9 (4) (HFpEF) heart failure with preserved ejection fraction Heart failure chronicity: acute on chronic Qualified Code(s): I50.33 - Acute on chronic diastolic (congestive) heart failure
--- NOTE | 2024-05-18 05:22 | Surgery Progress Note ---
Date of Service May 18, 2024 Assessment & Plan (1) Acute cholecystitis: Plan: Status post laparoscopic cholecystectomy on 05/16/2024 (postop day #2) Continue diet as tolerated Continue analgesics as needed Continue antiemetics as needed Continue antibiotics in the form of Zosyn while hospitalized Patient was noted to have approximately 3 g drop in hemoglobin on postop day 1 from preoperative values; continue to hold hold antiplatelets until certain hemoglobin and hematocrit is stable postoperatively Continue YOU drain to self suction Encourage mobilization/ambulation Encourage use of incentive spirometer Check a.m. labs when available Use SCDs for DVT prevention; would not add chemical means of DVT prophylaxis until certain H&H is stable as noted above Admission and Anticipated Discharge Date Admission Date: May 15, 2024 Supervising Physician Co-Signing Physician Notes He is stable for discharge home from a surgical standpoint Will give him 7 to 10 days of p.o. antibiotics upon discharge He will go home with the drain in place and follow-up with me later this week as an outpatient His kidney function has slowly worsened since hospital admission, will defer to medicine for workup of this and replacement of his electrolytes Subjective Patient is resting comfortably in bed. He notes he is not tolerating solid foods. He reports he has had a bowel movement since surgery. He denies any fevers, shakes, or chills. He is urinating without difficulty. He notes that he has ambulated without any difficulty. Physical Exam Gastrointestinal (Abdomen): Abdomen is soft nondistended. Patient has appropriate tenderness near surgical incisions. Laparoscopic incisions are covered with dressings which appear clean, dry, intact. YOU drain has drained approximately 140 cc over the past 24 hours and the drainage appears serosanguineous. Results & Data Vital Signs (Past 12 Hours) Vital Signs Temp Pulse Resp BP Pulse Ox O2 Del Method 05/17/24 21:14 36.5 C 63 16 137/85 94 Room Air 05/17/24 20:00 36.5 C 64 18 124/75 97 Room Air PG Care Time/CCT Total # of Minutes Spent Total Time Spent with Patient: Total time spent is greater than 50% in coordination of care (as documented) at patient's floor/unit and/or counseling patient: Coding Level of Care Code 37283 Post Operative Follow-Up Diagnoses Acute cholecystitis K81.0
[2024-05-18 06:11] LABS: Hematocrit (blood only) 36.4 % (42.0-52.0); Hemoglobin 12.3 g/dl (14.0-18.0); Mean Corpuscular Hemoglobin 28.3 pg (25.0-34.0); Mean Corpuscular Hgb Conc 33.8 g/dL (32.0-36.0); Mean Corpuscular Volume 83.7 fL (80.0-100.0); Mean Platelet Volume 9.6 fL (9.4-12.4); Platelet Count 210 K/uL (130-400); RDW Coefficient of Variation 13.2 % (11.5-14.5); RDW Standard Deviation 40.5 fL (36.4-46.3); Red Blood Count 4.35 M/uL (4.70-6.10); White Blood Count 6.06 K/ul (4.8-10.8)
[2024-05-18 06:32] LABS: Albumin Globulin Ratio 0.9 (0.9-2); Albumin Level 3.1 gm/dl (3.4-5.0); BUN Creatinine Ratio 21.9 (10-20); Bilirubin,Total 1.5 mg/dl (0.2-1.0); Calcium 8.8 mg/dl (8.6-10.3); Creatinine Clr Calc Pharmacy 27.2 ml/min; Globulin 3.6 gm/dl (2.5-4.0); Potassium 3.2 mmol/L (3.5-5.1); Total Protein 6.7 gm/dl (6.0-8.3)
[2024-05-18] MEDS: SODIUM CHLORIDE 0.9% 1,000 ML IV SCH (13:03)
[2024-05-18] MEDS: oxyCODONE HCL IR 5 MG TAB (IMMEDIATE RELEASE) PO PRN (13:06)
[2024-05-18] MEDS: POTASSIUM CHLORIDE CRTAB 20 MEQ TABCR PO STA (14:48)
[2024-05-18 18:23] LABS: BUN Creatinine Ratio 19.9 (10-20); Calcium 8.5 mg/dl (8.6-10.3); Creatinine Clr Calc Pharmacy 24.4 ml/min; Potassium 3.4 mmol/L (3.5-5.1)
--- NOTE | 2024-05-18 22:38 | Hospitalist Progress Note ---
Date of Service May 18, 2024 Assessment & Plan (1) Acute cholecystitis: Plan: Suspected previous admission but awaiting to be off clopidogrel for 5 days which he now has held IV Zosyn as requested by general surgery NPO, general surgery consulted, for OR today for lap jacky Pain control ordered with IV Dilaudid Patient has coronary artery disease with stable shortness of breath and no chest pain. Stent placed in 2022 with follow-up catheterization later that year in September showing nonobstructive coronary artery disease. Oxygen level has been stable. Acute blood loss anemia: Continue to hold clopidogrel postoperatively due to drop of hemoglobin. Hemoglobin dropped 3 point. Now stabilizing, may resume on 05/19 (2) CAD (coronary artery disease), [place] coronary artery: Plan: Patient is supposed to be taking aspirin but reportedly not reliably taking this, this should be restarted post operatively Holding clopidogrel for his operation Continue carvedilol, isosorbide mononitrate, intolerant to statins, losartan as above (3) Type 2 diabetes mellitus: Plan: Patient has an insulin pump although has run out of insulin at this time Basal dosing at 2.7 units/h = 65 units per day, given he is n.p.o. we will half this dose and make it BID at 15 units Continue his usual bolus dosing with NovoLog: --Goal BSG Range: Low 110 mg/dL, High 140 mg/dL --Correction Factor: 27 mg/dL/unit --Carbohydrate ratio = 7 g/unit --BSGs ACHS if eating, q6h if npo (4) (HFpEF) heart failure with preserved ejection fraction: Plan: Acute kidney injury: creatinine is rising. Currently appears euvolemic. hold Lasix at his home dose 40 mg p.o. BID and will give some IVF. creatine is 3 (5) Moderate COPD (chronic obstructive pulmonary disease): Plan: No acute exacerbation Continue his routine maintenance inhaler. Plan VTE prophylaxis - deferred chemical pre-operatively Diet -low fat diet Admission and Anticipated Discharge Date Admission Date: May 15, 2024 Subjective 69 yo male reports no new symptoms. Physical Exam Physical Exam: GENERAL: 69 yo obese WM. A&Ox4. No distress. LUNGS: Clear to auscultation bilaterally. No W/R/R. CARDIOVASCULAR: Regular rate and rhythm. ABDOMEN: Soft, obese. Non-distended. Bowel sounds normoactive x 4 quad. EXTREMITIES: No edema. Non-tender. Peripheral pulses +2/4. SKIN: Warm, dry, intact. No rashes or lesions. Results & Data Results & Data Vital Signs (Past 12 Hours) Vital Signs Temp Pulse Resp BP Pulse Ox O2 Del Method 05/18/24 21:24 36.6 C 68 17 135/82 92 Room Air 05/18/24 15:08 36.3 C L 63 18 151/79 H 93 Room Air PG Care Time/CCT Total # of Minutes Spent Total Time Spent with Patient: Total time spent is greater than 50% in coordination of care (as documented) at patient's floor/unit and/or counseling patient: Coding Level of Care Code 19805 SUB INP/OBS CARE 350MIN Diagnoses Acute cholecystitis K81.0 CAD (coronary artery disease), [place] coronary artery I25.10 Type 2 diabetes mellitus E11.9 (HFpEF) heart failure with preserved ejection fraction I50.33 Heart failure chronicity: acute on chronic Moderate COPD (chronic obstructive pulmonary disease) J44.9 (4) (HFpEF) heart failure with preserved ejection fraction Heart failure chronicity: acute on chronic Qualified Code(s): I50.33 - Acute on chronic diastolic (congestive) heart failure
[2024-05-19 06:24] LABS: Hematocrit (blood only) 35.9 % (42.0-52.0); Hemoglobin 11.9 g/dl (14.0-18.0); Mean Corpuscular Hemoglobin 27.7 pg (25.0-34.0); Mean Corpuscular Hgb Conc 33.1 g/dL (32.0-36.0); Mean Corpuscular Volume 83.7 fL (80.0-100.0); Mean Platelet Volume 9.5 fL (9.4-12.4); Platelet Count 219 K/uL (130-400); RDW Standard Deviation 39.5 fL (36.4-46.3); Red Blood Count 4.29 M/uL (4.70-6.10); White Blood Count 4.69 K/ul (4.8-10.8)
[2024-05-19 06:39] LABS: BUN Creatinine Ratio 19.5 (10-20); Calcium 8.4 mg/dl (8.6-10.3); Creatinine Clr Calc Pharmacy 25.1 ml/min; Potassium 3.4 mmol/L (3.5-5.1)
--- NOTE | 2024-05-19 10:08 | Surgery Progress Note ---
Date of Service May 19, 2024 Assessment & Plan (1) Acute cholecystitis: Plan: POD#3 laparoscopic cholecystectomy WBC 4.6, Hbg 11.9. Cr 2.9 (3), Vitals stable. kenisha drain serosang pt clinically feeling well. pain controlled. tolerating a diet recommend holding plavix one more day, may resume tomorrow keep KENISHA drain in place and pt can f/u in our office this upcoming vs sunday for removal would send pt home on 7 to 10 days of p.o. antibiotics upon discharge okay for dispo from our standpoint when cleared by medicine we will follow peripherally, please call with any questions/concerns Admission and Anticipated Discharge Date Admission Date: May 15, 2024 Subjective Patient feels well. Pain is controlled. Tolerating a diet. Having + bowel function. Physical Exam Physical Exam: awake/alert no distress Gastrointestinal (Abdomen): Inspection/Auscultation: + abdominal surgical incision (c/d/i with steri strips) and + abdominal surgical drain present (serosang); abdomen not distended Results & Data Vital Signs (Past 12 Hours) Vital Signs Temp Pulse Resp BP Pulse Ox O2 Del Method 05/19/24 07:35 97.9 F 74 18 172/79 H 91 Room Air PG Care Time/CCT Total # of Minutes Spent Total Time Spent with Patient: Total time spent is greater than 50% in coordination of care (as documented) at patient's floor/unit and/or counseling patient: Coding Level of Care Code 93613 Post Operative Follow-Up Diagnoses Acute cholecystitis K81.0
[2024-05-19] MEDS: ACETAMINOPHEN 325 MG TAB PO PRN (10:32)
--- NOTE | 2024-05-19 10:55 | XRay Report ---
XR chest 1V portable CLINICAL HISTORY: left sided chest pain COMPARISON STUDY: 03/03/2024 FINDINGS: There is stable mild cardiomegaly without pulmonary vascular congestion. No effusion, conso lidation, or pneumothorax. No displaced rib fracture seen. IMPRESSION: No acute findings. ACT 112: Negative or not required by law. Electronically signed by: Magdiel Bruce M.D. 05/19/2024 10:54 AM
[2024-05-19 10:57] LABS: Albumin Level 3.1 gm/dl (3.4-5.0); Bilirubin Direct 0.4 mg/dl (0-0.2); Bilirubin,Total 1.3 mg/dl (0.2-1.0); Total Protein 6.3 gm/dl (6.0-8.3)
[2024-05-19 11:00] LABS: Troponin I High Sensitivity 10.6 pg/ml (0-20)
--- NOTE | 2024-05-19 15:44 | Electrocardiogram Report ---
Test Reason : Blood Pressure : */* mmHG Vent. Rate : 65 BPM Atrial Rate : 65 BPM P-R Int : 166 ms QRS Dur : 116 ms QT Int : 460 ms P-R-T Axes : 37 60 43 degrees QTcB Int : 478 ms Poor data quality, interpretation may be adversely affected Normal sinus rhythm Normal ECG When compared with ECG of 15-May-2024 17:17, Incomplete right bundle branch block is no longer Present Confirmed by Phillip Beaulieu ([id number]) on 05/19/2024 3:44:08 PM Referred By: Elvia Mcdowell Confirmed By: Phillip Beaulieu
--- NOTE | 2024-05-19 18:49 | Hospitalist Progress Note ---
Date of Service May 19, 2024 Assessment & Plan (1) Acute cholecystitis: Plan: Suspected during previous admission with choledocholithiasis, passed stones, had ERCP which confirmed passed stones; was awaiting to be off clopidogrel for 5 days before lap jacky. Was discharged home and returned with return of pain. Treated here with IV ZOsyn Now s/p lap jacky on 05/16-had gangrenous cholecystitis, YOU drain left in place LUQ pain on AM of 05/19 likely from lap insufflation gas? Now resolved. Lipase and LFTs normal, trop and ECG normal, Hgb stable, no leukocytosis Quintin diet, moving bowels COntinue IV Zosyn Ok to resume Plavix on 05/20 as per Surgery Continue tylenol and oxycodone prn pain, dc IVFs COntinue abx for total of 10 days after discharge F/u Surgery after discharge f/u pathology f/u CBC, CMP in AM (2) CAD (coronary artery disease), [place] coronary artery: Plan: Has LAD stent placed 07/2022 Holding clopidogrel for his operation-can resume on 05/20 Continue carvedilol, isosorbide mononitrate, intolerant to statins Losartan on hold for STEVEN (3) Chronic kidney disease, stage 3b: Plan: with STEVEN on CKD stage 3-make up man up to 3.0 and now improved to 2.9, after IVFs dc IVFs continue to hold lasix and losartan follow BMP-give KCl 10 meq po x 1 today for hypokalemia (4) Type 2 diabetes mellitus: Plan: Patient has an insulin pump although has run out of insulin at this time-Basal dosing at 2.7 units/h = 65 units per day, Continue basal and bolus dosing of insulin to replace pump (5) (HFpEF) heart failure with preserved ejection fraction: Plan: Currently appears euvolemic but had EVA-was given IVFs Continue to hold Lasix and received IVFs Hold losaran for STEVEN BPs are somewhat elevated likely due to pain (6) Moderate COPD (chronic obstructive pulmonary disease): Plan: No acute exacerbation Continue his routine maintenance inhalers (7) Anxiety and depression: Plan: continue fluoxetine (8) Gout: Plan: no acute issues continue allopurinol Plan VTE prophylaxis - Add SCDs and SQ heparin on 05/19 Dispo-continued stay, dc to home tomorrow if make up man improving and pain controlled Admission and Anticipated Discharge Date Admission Date: May 15, 2024 Subjective Pt had LUQ pain that went up into his chest briefly this AM that resolved with tylenol. ECG and CXR reviewed and ok.Otherwise feels well throughout the day, moving bowels, eating. Pain better controlled in afternoon wiht oxycodone. Physical Exam Constitutional: WD/WN, vitals as above Respiratory: normal respiratory effort, lungs clear to auscultation Cardiovascular: RRR, no murmur, no edema Gastrointestinal (Abdomen): Inspection/Auscultation: normal bowel sounds; + abdomen abnormal to inspection (dressing right abd dried blood,YOU drain serosang fluid,lap stes c/d/i) and abdomen not distended Percussion/Palpation: abdomen soft; abdomen nontender Psychiatric: A+Ox3, euthymic affect Results & Data Results & Data Vital Signs (Past 12 Hours) Vital Signs Temp Pulse Resp BP Pulse Ox O2 Del Method 05/19/24 14:51 36.4 C L 58 L 18 186/111 H 92 Room Air 05/19/24 08:30 Room Air 05/19/24 07:35 36.6 C 74 18 172/79 H 91 Room Air Laboratory Results CBC, CMP,trop reviewed Diagnostic Findings CXR reviewed ECG Additional Comments: ECG 05/20 reviewed-no ischemic changes PG Care Time/CCT Total # of Minutes Spent Total Time Spent with Patient: Total time spent is greater than 50% in coordination of care (as documented) at patient's floor/unit and/or counseling patient: Coding Level of Care Code 76308 SUB INP/OBS CARE 3/50MIN Diagnoses Acute cholecystitis K81.0 CAD (coronary artery disease), [place] coronary artery I25.10 Chronic kidney disease, stage 3b N18.32 Type 2 diabetes mellitus E11.9 (HFpEF) heart failure with preserved ejection fraction I50.33 Heart failure chronicity: acute on chronic Moderate COPD (chronic obstructive pulmonary disease) J44.9 Anxiety and depression F41.9; F32.A Gout M10.9 (5) (HFpEF) heart failure with preserved ejection fraction Heart failure chronicity: acute on chronic Qualified Code(s): I50.33 - Acute on chronic diastolic (congestive) heart failure
[2024-05-19] MEDS: POTASSIUM CHLORIDE 10 MEQ TABCR PO STA (20:06)
[2024-05-19] MEDS: HEPARIN SOD 5,000 UNIT/0.5 ML VIAL SQ SCH (21:25)
[2024-05-20 07:19] LABS: Basophils # (auto) 0.01 K/uL (0.00-0.20); Basophils % (auto) 0.2 %; Eosinophils # (auto) 0.17 K/uL (0.00-0.50); Eosinophils % (auto) 3.4 %; Hematocrit (blood only) 36.6 % (42.0-52.0); Hemoglobin 12.4 g/dl (14.0-18.0); Immature Granulocytes # (auto) 0.07 K/uL (0.01-0.20); Immature Granulocytes % (auto) 1.4 %; Mean Corpuscular Hgb Conc 33.9 g/dL (32.0-36.0); Mean Corpuscular Volume 82.6 fL (80.0-100.0); Monocytes # (auto) 0.58 K/uL (0.11-0.59); Monocytes % (auto) 11.6 %; Neutrophils # (auto) 3.57 K/uL (1.40-6.50); Neutrophils % (auto) 71.4 %; Platelet Count 217 K/uL (130-400); RDW Coefficient of Variation 12.8 % (11.5-14.5); RDW Standard Deviation 38.5 fL (36.4-46.3); Red Blood Count 4.43 M/uL (4.70-6.10)
[2024-05-20 07:30] LABS: Albumin Globulin Ratio 0.8 (0.9-2); BUN Creatinine Ratio 19.8 (10-20); Bilirubin,Total 1.5 mg/dl (0.2-1.0); Calcium 8.1 mg/dl (8.6-10.3); Creatinine Clr Calc Pharmacy 32.9 ml/min; Globulin 3.6 gm/dl (2.5-4.0); Magnesium 1.9 mg/dl (1.7-2.4); Potassium 3.4 mmol/L (3.5-5.1); Total Protein 6.6 gm/dl (6.0-8.3)
[2024-05-20 07:53] VITALS: BP 185/89; PULSE 64; RESP 16; TEMP 97.7; O2SAT 94
--- NOTE | 2024-05-20 11:09 | Discharge Summary ---
Discharge Summary Date of Service May 20, 2024 Principal Dx & Hospital Course #1 = Principal Diagnosis (1) Acute cholecystitis: Suspected during previous admission with choledocholithiasis, passed stones, had ERCP which confirmed passed stones; was awaiting to be off clopidogrel for 5 days before lap jacky. Was discharged home and returned with return of pain. Treated here with IV ZOsyn Now s/p lap jacky on 05/16-had gangrenous cholecystitis, YOU drain left in place and will be removed in the surgeons office on 05/22 or 05/23 LUQ pain on AM of 05/19 likely from lap insufflation gas? Now resolved. Lipase normal, and LFTs only with minimal elevation in total bilirubin alkaline phosphatase that is residual, trop and ECG normal, Hgb stable, no leukocytosis- pain resolved Has some residual soreness from the surgery-can take acetaminophen or oxycodone as needed for pain Quintin regular diet, moving bowels, stable for discharge to home Resumed Plavix on 05/20 as per Surgery COntinue abx with Augmentin 500/125 mg p.o. 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 and now improved to 2.2 after IV fluid resuscitation and held losartan and Lasix Restarted Lasix on the day of discharge and can resume losartan the day after discharge follow BMP in 1 week with results to go to his pyroglazer Follow-up with nephrology in 1 to 2 weeks-message sent to his pyroglazer to get appointment scheduled (4) Type 2 diabetes mellitus: Patient has an insulin pump although has run out of insulin at this time-Basal dosing at 2.7 units/h = 65 units per day, He received basal and bolus dosing of insulin to replace pump while inpatient and can resume his pump on discharge (5) (HFpEF) heart failure with preserved ejection fraction: Is euvolemic but concern for volume overload if remains off diuretics. Renal function is improving Okay to resume home Lasix and losartan especially as blood pressures are becoming elevated (6) Moderate COPD (chronic obstructive pulmonary disease): No acute exacerbation Continue his routine maintenance inhalers (7) Anxiety and depression: continue fluoxetine (8) Gout: no acute issues continue allopurinol Plan VTE prophylaxis -SCDs and SQ heparin Dispo-discharge to home. Care discussed with at the bedside Notes For Next Care Provider Follow-up with general surgery in 2 to 3 days for YOU drain removal Check BMP in 1 week and follow-up with nephrology Medication Changes From Visit Added Augmentin x 6 more days Added oxycodone as needed pain Admission HPI Per Admitting Provider Magdiel Ceron is a 69 year old male who presents to the ER with intermittent right upper quadrant abdominal pain. He was recently admitted from May 10 to 2024 due to acute cholecystitis with choledocholithiasis. He was treated with ERCP however stone appeared to have spontaneously passed with no filling defects. No sphincterotomy was performed. His creatinine, bilirubin and LFTs improved. He was initially given intravenous Zosyn but no antibiotics given on discharge. He takes clopidogrel for history of coronary artery disease and surgery which this held 5 days prior to performing cholecystectomy therefore he was subsequently discharged for anticipation of outpatient cholecystectomy. After discharge the pain has intermittently returned in his right upper quadrant and he is able to hardly eat anything. No fever or chills, nausea but no vomiting. Has had loose stool the last few days. His symptoms appear to be much worse today therefore decided to return to the emergency room. Currently taking Lasix 40 mg p.o. BID. He reports his shortness of breath is at baseline. No chest pain on exertion. Leg swelling currently appears at baseline. Last took metolazone 2 days ago. He denies he is supposed to be taking aspirin but is noncompliant with this. He has continued to hold clopidogrel as recommended to fall surgery. Last dose of clopidogrel was on May 11. Discharge Exam Constitutional WD/WN, vitals as above Respiratory normal respiratory effort, lungs clear to auscultation Cardiovascular RRR, no murmur, no edema Gastrointestinal (Abdomen) Inspection/Auscultation: normal bowel sounds; + abdomen abnormal to inspection (dressing right abd CDI,YOU drain serosang fluid,lap sites c/d/i) and abdomen not distended Percussion/Palpation: abdomen soft; abdomen nontender Psychiatric A+Ox3, euthymic affect Discharge Plan Discharge Items Patient Disposition: Home - Self-Care Reason For Visit: ACUTE CHOLECYSTITIS Discharge Diagnosis: laparoscopic cholecystectomy Acute kidney injury Condition on Discharge: Fair Activity: Per Instructions section Lifting: No more than 10 pounds Bathing Comment: may shower; no soaking in tubs/pools x 2 weeks Exercise/Sports: Wait until after follow-up appointment Driving/Machine Use: no driving while taking narcotics for pain Non-emergency contact: Primary Care Provider, Surgeon and Nuclear Weapons Mechanical Specialist Call non-emergency contact if: you have any medication questions, your symptoms worsen, your pain is not controlled, your pain is unusual for you, you have a fever, your temperature is above 101.5, your wound has increased redness, your wound has increased drainage and your wound pain has increased Follow-up/Referrals: Heraclio Gasca DO [Physician] - (Dr. Gasca's office will contact you with your appointment date and time within the next 2 weeks.) Darwin Redmond DO [Physician] - (please call the office to schedule follow up this upcoming or sunday for drain removal ) Qamar Handy DO [Primary Care Provider] - (Follow-up within 1 to 2 weeks) Diet: Carb Consistent or DM2 and Low Sodium (2gm) Ambulatory Orders: Basic Metabolic Panel (Routine) Timeframe: 1 Week Location: Determined by Patient Ordered By: Wilma Munson Attending Provider Instructions: You were admitted and had your gallbladder removed. Please finish out the antibiotics for 6 more days with Augmentin twice daily. You can take acetamino phen for mild to moderate pain and oxycodone for moderate to severe pain. Please use your incentive spirometer 10 times on the hour while awake. You had some acute kidney injury which was resolving by the day of discharge. It is okay to resume your home Lasix today and restart your losartan tomorrow. Please have blood work done to check your kidney function in 1 week and the results will be sent to your pyroglazer for review. SPECIAL CARE INSTRUCTIONS: * You may remove your outer surgical dressings on 05/18/24. You will have small white bandages on underneath that are over your incisions. You may shower with these on. They will tend to fall off on their own within 7-10 days. * You have a surgical drain in place. Please care for the drain as you have been educated prior to discharge from the hospital. Empty drain 2-3x/daily and record output. Otherwise keep drain to bulb suction. * You may shower 05/18 . NO soaking in pools or baths for 2 weeks * No lifting greater than 10lbs. No strenuous exercise until cleared by surgeon. Light walking is accepted. * No driving while taking narcotic pain medication; wait at least 3 days * No drinking alcohol while taking narcotic pain medication * May use Tylenol over the counter for pain as tolerated. Do not exceed 3grams of Tylenol per 24 hours * Expect some swelling and bruising. * Diet- you may resume your regular diet Call your doctor if: * Temperature above 101 degrees, nausea/vomiting, fever/chills * Pain not relieved by pain medicine ordered * There is increased drainage or redness from any incision * You have any unanswered questions or concerns [phone]. FOLLOW UP VISIT: *please call the office to schedule follow up this upcoming or Sunday for drain removal If not already scheduled, please call the office for a follow-up visit. Office Pending Studies at Discharge: Yes Studies:: surgical pathology Stand-Alone Forms: My [facility] [place], Smoking Cessation Medications and DC Order Prescriptions: New oxycodone 5 mg Tablet 5 mg PO Q4H PRN (Reason: Moderate-severe pain) Qty: 14 0RF amoxicillin-pot clavulanate [Augmentin] 500-125 mg tablet 1 tab PO BID Qty: 12 0RF Continued allopurinol 100 mg tablet 200 mg PO BID Qty: 360 3RF (DME) lancets 30 gauge misc See Rx Instructions .Route Qty: 300 3RF Rx Instructions: test blood sugars three times a day isosorbide mononitrate 120 mg tablet extended release 24 hr 240 mg PO QAM Qty: 200 2RF (DME) Omnipod 5 G6 Pods (Gen 5) Cartridge See Rx Instructions .Route Qty: 10 11RF Rx Instructions: change pod every 3 days (DME) Omnipod 5 G6 Intro Kit (Gen 5) Cartridge See Rx Instructions .Route Qty: 1 0RF Rx Instructions: change pods every 3 days fluoxetine 60 mg tablet 60 mg PO QAM Qty: 90 3RF (DME) insulin syringe-needle U-100 [BD Insulin Syringe Ultra-Fine] 0.5 mL 30 gauge x 1/2" syringe See Rx Instructions .Route Qty: 200 11RF Rx Instructions: use new needle for injections 5 x daily (DME) OneTouch Verio test strips Strip See Rx Instructions .Route Qty: 300 3RF Rx Instructions: test blood sugars three times a day (DME) Dexcom G7 District Sales Leader Misc See Rx Instructions .Route Qty: 1 0RF Rx Instructions: for use with Dexcom G7 sensors (DME) Dexcom G7 Sensor Device See Rx Instructions .Route Qty: 3 11RF Rx Instructions: change sensor every 10 days insulin aspart U-100 [Novolog U-100 Insulin aspart] 100 unit/mL solution 100 unit subcut UD Rx Instructions: To be used in the Omnipod 5 pump. per pt he does 200 units last for 3 days metolazone 5 mg tablet 5 mg PO DAILY PRN (Reason: weight gain) Qty: 1 0RF carvedilol 12.5 mg tablet 25 mg PO BID losartan 25 mg tablet 50 mg PO QAM Hold Instructions: Resume on 08/02/22. cholecalciferol (vitamin D3) 1,250 mcg (50,000 unit) capsule 50,000 unit PO .COMPLEX Qty: 6 0RF Rx Instructions: 50,000 units orally take once weekly with largest meal of the day; cholecalciferol (vitamin D3) 50 mcg (2,000 unit) capsule 4,000 unit PO DAILY Qty: 1 0RF Repatha SureClick 140 mg/mL pen injector 140 mg subcut Q14D Qty: 2 5RF furosemide 40 mg tablet 40 mg PO BID Hold Instructions: Home Medication placed on hold at Doctor's office clopidogrel 75 mg tablet 75 mg PO QAM Rx Instructions: TAKE 1 TABLET BY MOUTH ONCE DAILY potassium chloride 20 mEq tablet extended release 20 meq PO UD Rx Instructions: 1- 2 tablets AM and 1 tablet in the PM; dapagliflozin propanediol [Farxiga] 10 mg tablet 10 mg PO QAM Trelegy Ellipta 200-62.5-25 mcg blister with device 1 inh inhalation QAM Discharge Orders: Discharge Order (Routine); Ordered 05/20/24 Ordered By: Wilma Loving Admission Data Admit Date/Time: 05/15/24 18:20 Attending Provider: Wilma Loving Admit Provider: Luis Paul Primary Care Provider: Qamar Handy Other Providers: Elvia Mcdowell; Luis Paul Hospital Stay Data Consultations 05/15/24 18:01 Consult General Surgery Stat ED Decision to Admit Stat Procedures Performed Operation Date: 05/16/24 08:00 Actual Procedures p Laparoscopic Cholecystectomy(Not Applicable) - Darwin Redmond, DO Pending Results Patient Have Any Pending Studies at Discharge: Yes Discharge Instructions Given to Patient (Per Discharging Provider) You were admitted and had your gallbladder removed. Please finish out the antibiotics for 6 more days with Augmentin twice daily. You can take acetaminophen for mild to moderate pain and oxycodone for moderate to severe pain. Please use your incentive spirometer 10 times on the hour while awake. You had some acute kidney injury which was resolving by the day of discharge. It is okay to resume your home Lasix today and restart your losartan tomorrow. Please have blood work done to check your kidney function in 1 week and the results will be sent to your pyroglazer for review. SPECIAL CARE INSTRUCTIONS: * You may remove your outer surgical dressings on 05/18/24. You will have small white bandages on underneath that are over your incisions. You may shower with these on. They will tend to fall off on their own within 7-10 days. * You have a surgical drain in place. Please care for the drain as you have been educated prior to discharge from the hospital. Empty drain 2-3x/daily and record output. Otherwise keep drain to bulb suction. * You may shower 05/18 . NO soaking in pools or baths for 2 weeks * No lifting greater than 10lbs. No strenuous exercise until cleared by surgeon. Light walking is accepted. * No driving while taking narcotic pain medication; wait at least 3 days * No drinking alcohol while taking narcotic pain medication * May use Tylenol over the counter for pain as tolerated. Do not exceed 3grams of Tylenol per 24 hours * Expect some swelling and bruising. * Diet- you may resume your regular diet Call your doctor if: * Temperature above 101 degrees, nausea/vomiting, fever/chills * Pain not relieved by pain medicine ordered * There is increased drainage or redness from any incision * You have any unanswered questions or concerns [phone]. FOLLOW UP VISIT: *please call the office to schedule follow up this upcoming or Sunday for drain removal If not already scheduled, please call the office for a follow-up visit. Office Total Time Total Time Spent Total Time Spent (In Minutes): 35 minutes Total Time Includes: Examination of the Patient, Discharge Planning and Medication Reconciliation Coding Level of Care Code 06784 INP/OBS DISCH >30 MIN Diagnoses Acute cholecystitis K81.0 CAD (coronary artery disease), [place] coronary artery I25.10 Chronic kidney disease, stage 3b N18.32 Type 2 diabetes mellitus E11.9 (HFpEF) heart failure with preserved ejection fraction I50.33 Heart failure chronicity: acute on chronic Moderate COPD (chronic obstructive pulmonary disease) J44.9 Anxiety and depression F41.9; F32.A Gout M10.9
[2024-05-20] MEDS: POTASSIUM CHLORIDE 10 MEQ TABCR PO STA (11:47)
[2024-05-20] MEDS: CLOPIDOGREL BISULFATE 75 MG TAB PO SCH (11:47)
[2024-05-20] MEDS: FUROSEMIDE 40 MG TAB PO SCH (11:47)
== END 2024-05-20 12:27 | disposition home or self-care (01) | DRG 418 ==
LOC: ED 17:01 → 3N 18:20 → SUATTDRO 18:20 → 3N 21:13